=== PATIENT | male | born 1945 | race Caucasian/White ===

== ENCOUNTER 2020-03-25 10:34 | Outpatient (REF) | payer MEDICARE, MEDICAID, SELFPAY ==
[2020-03-25 12:01] LABS: MANUAL DIFF FLAG NO
[2020-03-25 12:04] LABS: Basophils Percent Auto 0.6 % (0-2); Eosinophils Absolute Auto 0.4 X10*3/uL (0.0-0.4); Eosinophils Percent Auto 5.5 % (0-4); Hematocrit 47.6 % (42-52); Hemoglobin 15.3 g/dl (14.0-18.0); Imm Gran Abs Auto 0.14 X10*3/uL (0.00-0.03); Lymphocytes Absolute Auto 1.1 X10*3/uL (1.2-4.9); Lymphocytes Percent Auto 15.4 % (20-40); Mean Corpuscular HGB Conc 32.1 g/dl (31.0-36.0); Mean Corpuscular Hemoglobin 31.9 pg (27.0-33.0); Mean Corpuscular Volume 99.2 fL (80-98); Mean Platelet Volume 10.9 fL (9.4-12.4); Monocytes Absolute Auto 0.7 X10*3/uL (0.1-1.2); Monocytes Percent Auto 9.3 % (2-11); Neutrophils Absolute Auto 4.7 X10*3/uL (2.0-8.3); Neutrophils Percent Auto 67.2 % (45-73); Platelet Count 222 X10*3/uL (160-400); Red Cell Distribution Width 14.1 % (11.0-16.0)
[2020-03-25 12:32] LABS: Anion Gap 15 (12-20); Blood Urea Nitrogen 23 mg/dL (9-16); Carbon Dioxide 25 mmol/L (22-29); Chloride 104 mmol/L (96-108); Estimated Glomerular Filt Rate 52; Potassium 4.2 mmol/l (3.3-5.1); Sodium 140 mmol/L (135-145)
[2020-03-25 13:18] LABS: Total Protein Urine Random 26 mg/dL (<12)
== END 2020-03-25 10:35 | disposition home or self-care (01) ==
LOC: HO.LAB 10:34
PROVIDERS: PCP Internal Medicine; Visit Provider Internal Medicine Hypertension Specialist
DX: N18.30 Chronic kidney disease, stage 3 unspecified (principal); N03.9 Chronic nephritic syndrome with unspecified morphologic changes; N03.8 Chronic nephritic syndrome with other morphologic changes
CPT/HCPCS: 36415; 80051; 82565; 84156; 84520; 85025

== ENCOUNTER 2020-07-02 10:36 | Outpatient (REF) | payer MEDICARE, MEDICAID, SELFPAY ==
[2020-07-02 11:42] LABS: MANUAL DIFF FLAG NO
[2020-07-02 12:00] LABS: Basophils Absolute Auto 0.1 X10*3/uL (0.0-0.2); Basophils Percent Auto 0.7 % (0-2); Eosinophils Absolute Auto 0.6 X10*3/uL (0.0-0.4); Eosinophils Percent Auto 8.3 % (0-4); Hematocrit 46.5 % (42-52); Hemoglobin 14.9 g/dl (14.0-18.0); Imm Gran Abs Auto 0.12 X10*3/uL (0.00-0.03); Imm Gran Pct Auto 1.6 % (0.0-0.4); Lymphocytes Absolute Auto 1.7 X10*3/uL (1.2-4.9); Lymphocytes Percent Auto 22.6 % (20-40); Mean Corpuscular Hemoglobin 31.4 pg (27.0-33.0); Mean Corpuscular Volume 98.1 fL (80-98); Mean Platelet Volume 11.3 fL (9.4-12.4); Monocytes Absolute Auto 0.9 X10*3/uL (0.1-1.2); Monocytes Percent Auto 11.4 % (2-11); Neutrophils Absolute Auto 4.2 X10*3/uL (2.0-8.3); Neutrophils Percent Auto 55.4 % (45-73); Platelet Count 165 X10*3/uL (160-400); Red Blood Count 4.74 X10*6/uL (4.60-5.80); Red Cell Distribution Width 13.4 % (11.0-16.0); White Blood Count 7.6 X10*3/uL (4.8-10.8)
[2020-07-02 12:36] LABS: Blood Urea Nitrogen 23 mg/dL (9-16); Calcium 8.5 mg/dL (8.4-10.2); Estimated Glomerular Filt Rate 53
[2020-07-02 12:37] LABS: Creatinine Urine 61.41 mg/dL; Total Protein Urine Random 43 mg/dL (<12)
[2020-07-02 13:21] LABS: Anion Gap 16 (12-20); Carbon Dioxide 23 mmol/L (22-29); Chloride 108 mmol/L (96-108); Potassium 4.3 mmol/L (3.3-5.1); Sodium 143 mmol/L (135-145)
== END 2020-07-02 10:37 | disposition home or self-care (01) ==
LOC: HO.LAB 10:36
PROVIDERS: PCP Internal Medicine; Visit Provider Internal Medicine Hypertension Specialist
DX: I12.9 Hypertensive chronic kidney disease with stage 1 through stage 4 chronic kidney disease, or unspecified chronic kidney disease (principal); N18.9 Chronic kidney disease, unspecified
CPT/HCPCS: 36415; 80051; 82310; 82565; 84156; 84520; 85025

== ENCOUNTER 2020-11-09 16:14 | Inpatient (IN) | payer MEDICARE, MEDICAID, SELFPAY ==
--- NOTE | ~2020-11-09 | CT_ITS ---
EXAMINATION: CT ABDOMEN AND PELVIS WITHOUT CONTRAST CLINICAL INFORMATION: Left flank pain. History of fall. COMPARISON: CT abdomen pelvis 10/03/2013 TECHNIQUE: Multidetector volumetric imaging was performed from the superior aspect of the liver through the pubic symphysis. Sagittal and coronal reformatted images were obtained on the technologist's workstation. This CT examination was performed using dose optimization techniques as appropriate, variously including the following: *Automated exposure control *Adjustment of mA and/or kV according to patient size (this includes techniques or standardized protocols for targeted exams where dose is matched to indication/reason for exam; i.e. extremities or head) *Use of iterative reconstruction technique DLP: 963 mGy-cm FINDINGS: LUNG BASES: The lung bases are clear. The heart size is normal. There are coronary artery calcifications present. LIVER, GALLBLADDER, AND BILIARY TREE: The liver is normal in size, shape, and attenuation. No focal hepatic lesion or biliary ductal dilatation is present. The gallbladder is unremarkable with no evidence of radiopaque gallstones, gallbladder wall thickening, or obvious pericholecystic inflammatory changes. PANCREAS: Unremarkable. SPLEEN: Unremarkable. ADRENAL GLANDS: Unremarkable. KIDNEYS AND URETERS: Both kidneys are normal size, shape and position. There is normal cortical thickness. There is mild perinephric stranding. Is a 2 mm radiopaque nonobstructive calculi mid pole right kidney on axial image 42/3. There are numerous vascular calcifications in the renal hilum. A 1 mm radiopaque calculi seen in the upper pole left kidney axial image 43/3. BLADDER: Unremarkable. GASTROINTESTINAL TRACT: There is scattered stool, diverticuli and gas seen throughout the colon without distention. The small bowel loops are normal caliber. Appendix is normal caliber. No mural thickening, inflammatory process or free fluid seen. There is no free aerated. ABDOMINAL WALL: There are small umbilical hernia containing fat. LYMPH NODES: Normal. VASCULAR: There is atherosclerotic calcification of abdominal aorta without aneurysmal dilatation. PELVIC VISCERA: The prostate gland is normal size. OSSEOUS STRUCTURES: There are degenerative disc changes L4-L5 L5-S1 disc levels with mild ventral spondylosis. CT/CT abdomen pelvis wo con IMPRESSION: Bilateral nonobstructive small radiopaque renal calculi. No hydronephrosis. Mild constipation. Diffuse colonic diverticulosis without diverticulitis. Small umbilical hernia containing fat.
--- NOTE | ~2020-11-09 | CT_ITS ---
EXAMINATION: CT HEAD WITHOUT CONTRAST CLINICAL INFORMATION: Altered sensorium. Fall. COMPARISON: CT head dated 11/06/2018. TECHNIQUE: Contiguous axial imaging was performed from the skull base to vertex without intravenous administration of contrast. This CT examination was performed using dose optimization techniques as appropriate, variously including the following: *Automated exposure control *Adjustment of mA and/or kV according to patient size (this includes techniques or standardized protocols for targeted exams where dose is matched to indication/reason for exam; i.e. extremities or head) *Use of iterative reconstruction technique DLP: 878 mGy-cm FINDINGS: There is no evidence of acute intracranial hemorrhage or territorial infarction. No abnormal mass effect or midline shift is seen. Left parieto-occipital encephalomalacia, unchanged. García to white matter differentiation is otherwise maintained. No extra-axial fluid collections are identified. The ventricles are normal in size. There is no abnormal attenuation within the brain parenchyma. The osseous structures and soft tissues are normal. The mastoid air cells and visualized portions of the paranasal sinuses are well aerated. CT/CT head/brain wo con IMPRESSION: No acute intracranial hemorrhage or mass effect.
--- NOTE | ~2020-11-09 | XR_ITS ---
EXAMINATION: XR CHEST CLINICAL INFORMATION: Shortness of breath. COMPARISON: Multiple priors, most recent chest radiograph done 10/15/2019. TECHNIQUE: Frontal view of the chest was obtained. FINDINGS: Mild diffuse interstitial prominence. Hypoinflation of the lungs with right basilar atelectasis versus infiltrates, new when compared to the prior examination. Probable trace right-sided pleural effusion. No pneumothorax. Stable cardiomediastinal silhouette. XR/XR chest 1V IMPRESSION: Interstitial prominence with right basilar atelectasis versus infiltrates and a probable trace right-sided pleural effusion, new when compared to the prior examination.
[2020-11-09 16:16] VITALS: BP 106/67; BP 126/61; PULSE 116; PULSE 118; RESP 20; O2SAT 78; O2SAT 97; BMI 42.3
--- NOTE | 2020-11-09 16:25 | ECG_ITS ---
Test Reason : LOW O2 SAT Blood Pressure : / mmHG Vent. Rate : 108 BPM Atrial Rate : 108 BPM P-R Int : 160 ms QRS Dur : 082 ms QT Int : 362 ms P-R-T Axes : 061 009 053 degrees QTc Int : 485 ms Sinus tachycardia Cannot rule out Anterior infarct , age undetermined Abnormal ECG When compared with ECG of 15-OCT-2019 01:28, Premature atrial complexes are no longer Present Referred By: Anthony Aguirre Electronically Signed By:Edison Graham
--- NOTE | 2020-11-09 16:25 | ED.AMS ---
HPI - Altered Mental Status General Chief Complaint: Altered Mental Status Stated Complaint: overdose, unresponsive Time Seen by Provider: 11/09/20 16:25 Source: family Mode of arrival: EMS Limitations: altered mental status History of Present Illness HPI narrative: Patient is 75 years old obese with history of sleep apnea and chronic back pain on heavy doses of OxyContin 50 mg 2 times a day along with Soma and Ativan supposed to use CPAP in the night but not using it as cannot find a mask but using oxygen 2.5 L as needed and while sleeping patient's noticed that patient was more lethargic today morning not waking up from the bed checked his oxygen was 90% and dropped to 88 and 84 and just prior to arrival dropped to 49% then she called his daughter and ambulance also patient was incontinent in eat all day anything pulse ox improved to 70s on 4 L EMS applied non-rebreather and oxygen saturation improved to 90s. EMS gave Narcan and patient responded became more awake according to family he does not overdose on Soma or OxyContin might have taken extra Ativan. In the ER and patient arrived was lethargic is easily arousable saturating 100 % on non-rebreather. last night patient fell between the bed and the table slump down without any significant injury Related Data Home Medications Medication Instructions Recorded Confirmed albuterol sulfate [Ventolin HFA] 2 puff INHALATION Q3-4H 11/09/20 11/09/20 allopurinol 2 tab PO DAILY 11/09/20 11/09/20 carisoprodol 2 tab PO TID 11/09/20 11/09/20 glipizide 1 tab PO BID 11/09/20 11/09/20 lorazepam 1 tab PO TID 11/09/20 11/09/20 losartan 1 tab PO DAILY 11/09/20 11/09/20 omeprazole 1 cap PO DAILY 11/09/20 11/09/20 oxycodone [OxyContin] 1 tab PO BID 11/09/20 11/09/20 oxycodone [OxyContin] 1 tab PO QPM 11/09/20 11/09/20 prednisone 1 tab PO ONCE 11/09/20 11/09/20 simvastatin 1 tab PO DAILY 11/09/20 11/09/20 Allergies Allergy/AdvReac Type Severity Reaction Status Date / Time codeine [CODEINE] Allergy Intermediate RASH Verified 11/09/20 17:07 morphine [MORPHINE] Allergy Mild NAUSEA Verified 11/09/20 17:07 ibuprofen [From MOTRIN] Allergy Unknown NAUSEA Verified 11/09/20 17:07 Review of Systems Review of Systems: Yes Unobtainable due to mental status [facility] Past Medical History Medical History Chronic back pain CVA (cerebral vascular accident) Lung nodule Oxygen dependent Sleep apnea Social History Social History Advance Directives: No Advance Directives Information Provided: Yes Physical Exam Vital Signs: Vital Signs: Last Vital Signs Temp 97.8 F 11/10/20 00:00 Pulse 105 H 11/10/20 00:00 Resp 20 11/10/20 00:00 BP 123/61 11/10/20 00:00 Pulse Ox 89 L 11/10/20 00:00 Body Mass Index 42.3 Const: General: lethargic and patient obtunded Nutritional Appearance: obese Orientation/consciousness: oriented to person, patient obtunded and lethargic Limitations: altered mental status HENMT: Head: Yes normocephalic Ears: hearing grossly impaired General nose exam: Normal external nose present Eyes: General: appearance normal, both eyes and all related structures Conjunctivae: conjunctivae normal Pupils: Equal, round and reactive pupils present Neck: Neck: Yes normal visual inspection Chest: Chest palpation & inspection: normal inspection of the chest Resp: Effort & Inspection: normal respiratory effort Auscultation: clear to auscultation bilaterally and diminished lung sounds Cardio: Palpation: normal PMI Rate: regular rate Rhythm: regular rhythm Heart sounds: S1 normal heart sound present and S2 normal heart sound present Peripheral pulses: Peripheral pulses 2+ throughout GI: Inspection: Yes normal to inspection Palpation (GI): Soft to palpation and nontender Auscultation: normal bowel sounds : General: Yes no CVA tenderness Back/Spine/Pelvis: Back: no CVA tenderness Thoracic/Lumbar Spine: thoracic and lumbar spine normal to inspection Skin: General skin exam: no rashes or lesions noted Neuro: General: oriented to person, no focal motor deficits, CN's II-XI intact bilaterally and patient obtunded Cranial nerves: Yes Equal, round and reactive pupils present Extrem: General: Yes normal to inspection, Yes full ROM and No edema MDM - Altered Mental Status MDM Narrative Medical decision making narrative: Patient likely with overdosed on OxyContin and Ativan as patient does not remember per family and is getting more forgetful. Also lab workup showed impaired renal functions creatinine increased to 2.18 from 1.3. Patient troponin level was elevated likely from demand ischemia secondary to hypoxia no acute EKG changes. Will admit patient for observation Medical Records Attestation: I reviewed the patient's medical records. Lab Data Attestation: I reviewed the patient's lab results. Result diagrams: 11/09/20 16:49 11/09/20 16:49 Labs: Lab Results 11/09/20 11/09/20 11/09/20 Range/Units 16:17 16:49 16:49 WBC 10.6 (4.8-10.8) X10*3/uL RBC 4.58 L (4.60-5.80) X10*6/uL Hgb 14.7 (14.0-18.0) g/dl Hct 46.4 (42-52) % MCV 101.3 H (80-98) fL MCH 32.1 (27.0-33.0) pg MCHC 31.7 (31.0-36.0) g/dl RDW 14.1 (11.0-16.0) % Plt Count 134 L (160-400) X10*3/uL MPV 11.3 (9.4-12.4) fL Immature Gran % (Auto) 1.0 H (0.0-0.4) % Neut % (Auto) 83.4 H (45-73) % Lymph % (Auto) 3.6 L (20-40) % [place] % (Auto) 11.6 H (2-11) % Eos % (Auto) 0.2 (0-4) % Baso % (Auto) 0.2 (0-2) % Lymph # (Auto) 0.4 L (1.2-4.9) X10*3/uL [place] # (Auto) 1.2 (0.1-1.2) X10*3/uL Eos # (Auto) 0.0 (0.0-0.4) X10*3/uL Baso # (Auto) 0.0 (0.0-0.2) X10*3/uL Abs Immat Gran (auto) 0.11 H (0.00-0.03) X10*3/uL Absolute Neuts (auto) 8.8 H (2.0-8.3) X10*3/uL Absolute Nucleated RBC 0.000 (0.0-0.012) X10*3/uL Nucleated RBC % (auto) 0.0 (0.0-0.2) /100WBC Smear Tech's Comments VERIFIED PT 11.2 (9.9-13.0) SEC INR 1.0 (0.9-1.1) APTT 19.9 L (24.1-38.0) SEC O2 Saturation % ABG pH at Pt Temp (7.35-7.45) ABG pH (Temp Correct) (7.35-7.45) ABG pCO2 at Pt Temp (32-45) mmHg ABG pCO2 (Temp Corrct (32-45) mmHg ABG pO2 at Pt Temp (83-108) mmHg ABG pO2 (Temp Correct (83-108) ABG HCO3 (22-26) mmol/L ABG Base Excess (Actual) mmol/L Sodium (135-145) mmol/L Potassium (3.3-5.1) mmol/L Chloride (96-108) mmol/L Carbon Dioxide (22-29) mmol/L Anion Gap (12-20) BUN (9-16) mg/dL Creatinine (0.5-1.4) mg/dL Estim Creat Clear Calc Estimated GFR POC Glucose 172 H (60-115) mg/dL Random Glucose (60-115) mg/dL Lactic Acid (0.5-2.0) mmol/L Calcium (8.4-10.2) mg/dL Total Bilirubin (0.0-1.0) mg/dL Direct Bilirubin (0.0-0.5) mg/dL AST (5-37) U/L ALT (0-40) U/L Alkaline Phosphatase (39-117) U/L Troponin I High Sens (<3.5-35.0) ng/L B-Natriuretic Peptide (<100) pg/mL Total Protein (6.5-8.0) g/dL Albumin (3.5-5.0) g/dL COVID-19 ([facility]) (Negative) COVID-19 Clin Com 11/09/20 11/09/20 11/09/20 Range/Units 16:49 16:49 16:49 WBC (4.8-10.8) X10*3/uL RBC (4.60-5.80) X10*6/uL Hgb (14.0-18.0) g/dl Hct (42-52) % MCV (80-98) fL MCH (27.0-33.0) pg MCHC (31.0-36.0) g/dl RDW (11.0-16.0) % Plt Count (160-400) X10*3/uL MPV (9.4-12.4) fL Immature Gran % (Auto) (0.0-0.4) % Neut % (Auto) (45-73) % Lymph % (Auto) (20-40) % [place] % (Auto) (2-11) % Eos % (Auto) (0-4) % Baso % (Auto) (0-2) % Lymph # (Auto) (1.2-4.9) X10*3/uL [place] # (Auto) (0.1-1.2) X10*3/uL Eos # (Auto) (0.0-0.4) X10*3/uL Baso # (Auto) (0.0-0.2) X10*3/uL Abs Immat Gran (auto) (0.00-0.03) X10*3/uL Absolute Neuts (auto) (2.0-8.3) X10*3/uL Absolute Nucleated RBC (0.0-0.012) X10*3/uL Nucleated RBC % (auto) (0.0-0.2) /100WBC Smear Tech's Comments PT (9.9-13.0) SEC INR (0.9-1.1) APTT (24.1-38.0) SEC O2 Saturation % ABG pH at Pt Temp (7.35-7.45) ABG pH (Temp Correct) (7.35-7.45) ABG pCO2 at Pt Temp (32-45) mmHg ABG pCO2 (Temp Corrct (32-45) mmHg ABG pO2 at Pt Temp (83-108) mmHg ABG pO2 (Temp Correct (83-108) ABG HCO3 (22-26) mmol/L ABG Base Excess (Actual) mmol/L Sodium 138 (135-145) mmol/L Potassium 4.5 (3.3-5.1) mmol/L Chloride 108 (96-108) mmol/L Carbon Dioxide 17 L (22-29) mmol/L Anion Gap 18 (12-20) BUN 40 H D (9-16) mg/dL Creatinine 2.18 H (0.5-1.4) mg/dL Estim Creat Clear Calc 41.5 Estimated GFR 30 POC Glucose (60-115) mg/dL Random Glucose 184 H (60-115) mg/dL Lactic Acid 0.8 (0.5-2.0) mmol/L Calcium 8.2 L (8.4-10.2) mg/dL Total Bilirubin 2.1 H (0.0-1.0) mg/dL Direct Bilirubin 1.6 H (0.0-0.5) mg/dL AST 30 (5-37) U/L ALT 36 (0-40) U/L Alkaline Phosphatase 159 H (39-117) U/L Troponin I High Sens 60.4 H* (<3.5-35.0) ng/L B-Natriuretic Peptide (<100) pg/mL Total Protein 6.3 L (6.5-8.0) g/dL Albumin 3.9 (3.5-5.0) g/dL COVID-19 ([facility]) (Negative) COVID-19 Clin Com 11/09/20 11/09/20 11/09/20 Range/Units 16:49 16:49 16:54 WBC (4.8-10.8) X10*3/uL RBC (4.60-5.80) X10*6/uL Hgb (14.0-18.0) g/dl Hct (42-52) % MCV (80-98) fL MCH (27.0-33.0) pg MCHC (31.0-36.0) g/dl RDW (11.0-16.0) % Plt Count (160-400) X10*3/uL MPV (9.4-12.4) fL Immature Gran % (Auto) (0.0-0.4) % Neut % (Auto) (45-73) % Lymph % (Auto) (20-40) % [place] % (Auto) (2-11) % Eos % (Auto) (0-4) % Baso % (Auto) (0-2) % Lymph # (Auto) (1.2-4.9) X10*3/uL [place] # (Auto) (0.1-1.2) X10*3/uL Eos # (Auto) (0.0-0.4) X10*3/uL Baso # (Auto) (0.0-0.2) X10*3/uL Abs Immat Gran (auto) (0.00-0.03) X10*3/uL Absolute Neuts (auto) (2.0-8.3) X10*3/uL Absolute Nucleated RBC (0.0-0.012) X10*3/uL Nucleated RBC % (auto) (0.0-0.2) /100WBC Smear Tech's Comments PT (9.9-13.0) SEC INR (0.9-1.1) APTT (24.1-38.0) SEC O2 Saturation 98.0 % ABG pH at Pt Temp 7.30 L (7.35-7.45) ABG pH (Temp Correct) 7.31 L (7.35-7.45) ABG pCO2 at Pt Temp 32 (32-45) mmHg ABG pCO2 (Temp Corrct 32 (32-45) mmHg ABG pO2 at Pt Temp 112 H (83-108) mmHg ABG pO2 (Temp Correct 109 H (83-108) ABG HCO3 16 L (22-26) mmol/L ABG Base Excess (Actual) -8.4 mmol/L Sodium (135-145) mmol/L Potassium (3.3-5.1) mmol/L Chloride (96-108) mmol/L Carbon Dioxide (22-29) mmol/L Anion Gap (12-20) BUN (9-16) mg/dL Creatinine (0.5-1.4) mg/dL Estim Creat Clear Calc Estimated GFR POC Glucose (60-115) mg/dL Random Glucose (60-115) mg/dL Lactic Acid (0.5-2.0) mmol/L Calcium (8.4-10.2) mg/dL Total Bilirubin (0.0-1.0) mg/dL Direct Bilirubin (0.0-0.5) mg/dL AST (5-37) U/L ALT (0-40) U/L Alkaline Phosphatase (39-117) U/L Troponin I High Sens (<3.5-35.0) ng/L B-Natriuretic Peptide 59 (<100) pg/mL Total Protein (6.5-8.0) g/dL Albumin (3.5-5.0) g/dL COVID-19 ([facility]) Negative (Negative) COVID-19 Clin Com See Note 11/09/20 Range/Units 20:16 WBC (4.8-10.8) X10*3/uL RBC (4.60-5.80) X10*6/uL Hgb (14.0-18.0) g/dl Hct (42-52) % MCV (80-98) fL MCH (27.0-33.0) pg MCHC (31.0-36.0) g/dl RDW (11.0-16.0) % Plt Count (160-400) X10*3/uL MPV (9.4-12.4) fL Immature Gran % (Auto) (0.0-0.4) % Neut % (Auto) (45-73) % Lymph % (Auto) (20-40) % [place] % (Auto) (2-11) % Eos % (Auto) (0-4) % Baso % (Auto) (0-2) % Lymph # (Auto) (1.2-4.9) X10*3/uL [place] # (Auto) (0.1-1.2) X10*3/uL Eos # (Auto) (0.0-0.4) X10*3/uL Baso # (Auto) (0.0-0.2) X10*3/uL Abs Immat Gran (auto) (0.00-0.03) X10*3/uL Absolute Neuts (auto) (2.0-8.3) X10*3/uL Absolute Nucleated RBC (0.0-0.012) X10*3/uL Nucleated RBC % (auto) (0.0-0.2) /100WBC Smear Tech's Comments PT (9.9-13.0) SEC INR (0.9-1.1) APTT (24.1-38.0) SEC O2 Saturation % ABG pH at Pt Temp (7.35-7.45) ABG pH (Temp Correct) (7.35-7.45) ABG pCO2 at Pt Temp (32-45) mmHg ABG pCO2 (Temp Corrct (32-45) mmHg ABG pO2 at Pt Temp (83-108) mmHg ABG pO2 (Temp Correct (83-108) ABG HCO3 (22-26) mmol/L ABG Base Excess (Actual) mmol/L Sodium (135-145) mmol/L Potassium (3.3-5.1) mmol/L Chloride (96-108) mmol/L Carbon Dioxide (22-29) mmol/L Anion Gap (12-20) BUN (9-16) mg/dL Creatinine (0.5-1.4) mg/dL Estim Creat Clear Calc Estimated GFR POC Glucose (60-115) mg/dL Random Glucose (60-115) mg/dL Lactic Acid (0.5-2.0) mmol/L Calcium (8.4-10.2) mg/dL Total Bilirubin (0.0-1.0) mg/dL Direct Bilirubin (0.0-0.5) mg/dL AST (5-37) U/L ALT (0-40) U/L Alkaline Phosphatase (39-117) U/L Troponin I High Sens 236.0 H* D (<3.5-35.0) ng/L B-Natriuretic Peptide (<100) pg/mL Total Protein (6.5-8.0) g/dL Albumin (3.5-5.0) g/dL COVID-19 ([facility]) (Negative) COVID-19 Clin Com Critical Care Time Critical Care Time Critical Care Time: Yes Total Critical Care Time: 35 Attestation: I spent 35 minutes of critical care, with interventions, assessments, speaking to patient, and family. Discharge Plan Discharge Clinical Impression: Elevated troponin level not due myocardial infarction Altered mental status Qualifiers: Altered mental status type: stupor Qualified Code(s): R40.1 - Stupor Acute renal failure Qualifiers: Acute renal failure type: unspecified Qualified Code(s): N17.9 - Acute kidney failure, unspecified Patient Disposition: Admitted As Inpatient Discharge Date/Time: 11/10/20 00:17
[2020-11-09 16:30] VITALS: PULSE 116; RESP 18; TEMP 36.4
[2020-11-09 17:02] LABS: ABG Base Excess -8.4 mmol/L; ABG HCO3 16 mmol/L (22-26); ABG pCO2 32 mmHg (32-45); ABG pCO2 TC 32 mmHg (32-45); ABG pH TC 7.31 (7.35-7.45); ABG pO2 112 mmHg (83-108); ABG pO2 TC 109 (83-108)
[2020-11-09 17:03] LABS: ABG Refer to POC result
[2020-11-09] MEDS: 0.9 % Sodium Chloride 1,000 ML 999 ML IVCONT (17:08)
[2020-11-09 17:12] LABS: Basophils Percent Auto 0.2 % (0-2); Eosinophils Percent Auto 0.2 % (0-4); Hemoglobin 14.7 g/dl (14.0-18.0); MANUAL DIFF FLAG SCAN; Neutrophils Percent Auto 83.4 % (45-73); PLT CLUMP 1; SCAN SMEAR FLAG 1
[2020-11-09 17:14] LABS: Hematocrit 46.4 % (42-52); Imm Gran Abs Auto 0.11 X10*3/uL (0.00-0.03); Lymphocytes Absolute Auto 0.4 X10*3/uL (1.2-4.9); Lymphocytes Percent Auto 3.6 % (20-40); Mean Corpuscular HGB Conc 31.7 g/dl (31.0-36.0); Mean Corpuscular Hemoglobin 32.1 pg (27.0-33.0); Mean Corpuscular Volume 101.3 fL (80-98); Monocytes Absolute Auto 1.2 X10*3/uL (0.1-1.2); Monocytes Percent Auto 11.6 % (2-11); Neutrophils Absolute Auto 8.8 X10*3/uL (2.0-8.3); Red Blood Count 4.58 X10*6/uL (4.60-5.80); Red Cell Distribution Width 14.1 % (11.0-16.0); White Blood Count 10.6 X10*3/uL (4.8-10.8)
--- NOTE | 2020-11-09 17:18 | PC.NURSE ---
Difficulty in obtaining IV access. EJ placed to left neck by physician. VSS at this time. PT sent to CT.
[2020-11-09 17:20] LABS: Lactic Acid 0.8 mmol/L (0.5-2.0)
[2020-11-09 17:23] VITALS: PULSE 111; O2SAT 94
[2020-11-09] MEDS: Albuterol/Iprat 2.5/0.5MG 3 ML AMPUL.NEB INHALE (17:23)
[2020-11-09] MEDS: Albuterol Sulfate (0.083%) 2.5 MG/3 ML VIAL.NEB INHALE (17:23)
[2020-11-09 17:27] LABS: Alanine Aminotransferase 36 U/L (0-40); Albumin Level 3.9 g/dL (3.5-5.0); Alkaline Phosphatase 159 U/L (39-117); Anion Gap 18 (12-20); Aspartate Amino Transferase 30 U/L (5-37); Bilirubin Direct 1.6 mg/dL (0.0-0.5); Bilirubin Total 2.1 mg/dL (0.0-1.0); Blood Urea Nitrogen 40 mg/dL (9-16); Calcium 8.2 mg/dL (8.4-10.2); Carbon Dioxide 17 mmol/L (22-29); Chloride 108 mmol/L (96-108); Creatinine Clr Calc Pharmacy 41.5; Estimated Glomerular Filt Rate 30; Glucose Random 184 mg/dL (60-115); Potassium 4.5 mmol/L (3.3-5.1); Sodium 138 mmol/L (135-145); Total Protein 6.3 g/dL (6.5-8.0)
[2020-11-09 17:30] VITALS: BP 101/63; PULSE 110; RESP 16; O2SAT 96
[2020-11-09 17:30] LABS: Troponin-I High Sensitivity 60.4 ng/L (<3.5-35.0)
[2020-11-09 17:33] LABS: Prothrombin Time 11.2 SEC (9.9-13.0)
[2020-11-09 17:36] LABS: COVID-19 Test Negative (Negative)
[2020-11-09 17:40] LABS: Mean Platelet Volume 11.3 fL (9.4-12.4); Platelet Count 134 X10*3/uL (160-400)
[2020-11-09 17:40] LABS: Glucose, Whole Blood 172 mg/dL (60-115)
[2020-11-09 17:41] LABS: SLIDE REVIEW VERIFIED
[2020-11-09 17:42] LABS: Partial Thromboplastin Time 19.9 SEC (24.1-38.0)
[2020-11-09 17:55] LABS: B Type Natriuretic Peptide 59 pg/mL (<100)
[2020-11-09 18:32] VITALS: BP 101/63; PULSE 107; RESP 16; O2SAT 91
--- NOTE | 2020-11-09 21:22 | ECG_ITS ---
Test Reason : REPEAT Blood Pressure : / mmHG Vent. Rate : 108 BPM Atrial Rate : 108 BPM P-R Int : 162 ms QRS Dur : 084 ms QT Int : 346 ms P-R-T Axes : 123 171 121 degrees QTc Int : 463 ms Suspect limb lead reversal, interpretation assumes no reversal Unusual P axis, possible ectopic atrial tachycardia Left posterior fascicular block Cannot rule out Anterior infarct (cited on or before 09-NOV-2020) Abnormal ECG When compared with ECG of 09-NOV-2020 18:31, Ectopic atrial rhythm has replaced Sinus rhythm Left posterior fascicular block is now Present Referred By: Anthony Aguirre Electronically Signed By:Edison Graham
[2020-11-09 21:50] VITALS: BP 117/59; PULSE 109; RESP 15; O2SAT 91
[2020-11-09] MEDS: Piperacillin Sodium/Tazobactam 3.375 GM in 0.9 % Sodium Chloride 50 ML IV (22:21)
--- NOTE | 2020-11-09 23:00 | PM.IMHP ---
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 and chronic back pain on opioids as well as Ativan per family who presents to the hospital after his found him on the floor. It appears that patient had fallen out of bed and unclear if she lost consciousness but when his found him he was very lethargic and hard to arouse. His daughter arrived to the home shortly after and found him to be satting 69%. With a blood pressure of 90 3.5. Patient's daughter placed him on 2 L of oxygen with improvement of his oxygen to 93% which is around his baseline, but patient remained lethargic and had very minimal p.o. intake throughout the day. Patient's daughter reports that she left her parent's house at noontime, called her mother and found around 4:00 a.m. the patient was turning blue. His checked his oxygen on found to be 49% on 2 L of oxygen. Therefore decided to call EMS to bring him to the hospital. Patient is now more alert, he is a little more responsive, he is oriented to self and place. He does not remember what happened, reports that he might have lost consciousness. His daughter and his report that he may have taken extra dose of Ativan and pain medication although they are not sure. Patient himself is also not sure. He denies any weakness. He has chronic weakness of the right lower extremity with no changes. He denies any numbness or tingling, no change in vision or headache, no chest pain, no shortness of breath, no abdominal pain nausea or vomiting, he had 1 loss of bowel control in bladder control in the morning while at home. With no recurrence. Patient hemodynamically stable with a temp of 97.8?, heart rate of 116, respiratory rate of 18, blood pressure of 106/67 satting 97% on non-rebreather, currently on 3 L satting 90% Labs on arrival significant for WBC count of 10.6, hemoglobin of 14.7, pH of 7.3, pCO2 of 32, PO2 of 112, BUN of 40, creatinine of 2.8 with a baseline around 1.32, total bili of 2.1, direct bili of 1.6, alk-phos of 159, troponin of 60.4 which increased to 236. UA positive for leukocyte Estrace, and WBC will be admitted for further management Review of Systems Review of Systems: Yes all other systems are reviewed and are negative [facility] Medical History Chronic back pain CVA (cerebral vascular accident) Lung nodule Oxygen dependent Sleep apnea Social History Household Members: Spouse Housing: House Do you presently have visiting nurse or other home services: No Patient Tobacco Use Status: Former Tobacco user Use of substances other than those prescribed or required for medical reasons: No Have you been hit, kicked, punched, or otherwise hurt by someone within the past year? If so, by whom?: No Do you feel safe in your current relationship?: Yes Is there a partner from a previous relationship who is making you feel unsafe now?: No Are you made to feel afraid or neglected: No Advance Directives: No Advance Directives Information Provided: Yes Do you have thoughts of harming others: None Do you have a plan to hurt others: No Plan Recently lost weight without trying: No Eating poorly because of decreased appetite: No Nutrition Risks: No Nutritional Risk Poor oral hygiene: No Meds Allergies Allergy/AdvReac Type Severity Reaction Status Date / Time codeine [CODEINE] Allergy Intermediate RASH Verified 11/09/20 17:07 morphine [MORPHINE] Allergy Mild NAUSEA Verified 11/09/20 17:07 ibuprofen [From MOTRIN] Allergy Unknown NAUSEA Verified 11/09/20 17:07 Home Medications Medication Instructions Recorded Confirmed Last Taken Type albuterol sulfate [Ventolin HFA] 2 puff INHALATION Q3-4H 11/09/20 11/09/20 Unknown History allopurinol 2 tab PO DAILY 11/09/20 11/09/20 Unknown History carisoprodol 2 tab PO TID 11/09/20 11/09/20 Unknown History glipizide 1 tab PO BID 11/09/20 11/09/20 Unknown History lorazepam 1 tab PO TID 11/09/20 11/09/20 Unknown History losartan 1 tab PO DAILY 11/09/20 11/09/20 Unknown History omeprazole 1 cap PO DAILY 11/09/20 11/09/20 Unknown History oxycodone [OxyContin] 1 tab PO BID 11/09/20 11/09/20 Unknown History oxycodone [OxyContin] 1 tab PO QPM 11/09/20 11/09/20 Unknown History prednisone 1 tab PO ONCE 11/09/20 11/09/20 Unknown History simvastatin 1 tab PO DAILY 11/09/20 11/09/20 Unknown History Physical Exam Vital Signs and Narrative: Vital Signs: Last Vital Signs Temp 97.6 F 11/09/20 16:30 Pulse 109 H 11/09/20 21:50 Resp 15 11/09/20 21:50 BP 117/59 L 11/09/20 21:50 Pulse Ox 91 L 11/09/20 21:50 Body Mass Index 42.3 Const: Other: Lethargic but arousable General: cooperative and no acute distress Eyes: General: appearance normal, both eyes and all related structures Resp: Effort & Inspection: normal respiratory effort and able to speak in complete sentences Auscultation: clear to auscultation bilaterally Cardio: Rate: regular rate Rhythm: regular rhythm GI: Palpation (GI): Soft to palpation Auscultation: normal bowel sounds Skin: General skin exam: no rashes or lesions noted Neuro: Other: No significant neurological deficits, chronic weakness of right lower extremity Cognition (Neuro): normal cognition Extrem: General: Yes normal to inspection and Yes no pedal edema Results Labs CBC and Chem 7: 11/10/20 04:46 11/10/20 04:46 Labs: Laboratory Results - last 24 hr 11/09/20 11/09/20 11/09/20 16:17 16:49 16:49 MCV 101.3 H MCH 32.1 MCHC 31.7 RDW 14.1 Plt Count 134 L MPV 11.3 Immature Gran % (Auto) 1.0 H Neut % (Auto) 83.4 H Lymph % (Auto) 3.6 L [place] % (Auto) 11.6 H Eos % (Auto) 0.2 Baso % (Auto) 0.2 Lymph # (Auto) 0.4 L [place] # (Auto) 1.2 Eos # (Auto) 0.0 Baso # (Auto) 0.0 Abs Immat Gran (auto) 0.11 H Absolute Neuts (auto) 8.8 H Absolute Nucleated RBC 0.000 Nucleated RBC % (auto) 0.0 Smear Tech's Comments VERIFIED PT 11.2 INR 1.0 APTT 19.9 L O2 Saturation ABG pH at Pt Temp ABG pH (Temp Correct) ABG pCO2 at Pt Temp ABG pCO2 (Temp Corrct ABG pO2 at Pt Temp ABG pO2 (Temp Correct ABG HCO3 ABG Base Excess (Actual) Anion Gap Estim Creat Clear Calc Estimated GFR POC Glucose 172 H Random Glucose Lactic Acid Calcium Total Bilirubin Direct Bilirubin AST ALT Alkaline Phosphatase Troponin I High Sens B-Natriuretic Peptide Total Protein Albumin COVID-19 ([facility]) COVID-19 [place] 11/09/20 11/09/20 11/09/20 16:49 16:49 16:49 MCV MCH MCHC RDW Plt Count MPV Immature Gran % (Auto) Neut % (Auto) Lymph % (Auto) [place] % (Auto) Eos % (Auto) Baso % (Auto) Lymph # (Auto) [place] # (Auto) Eos # (Auto) Baso # (Auto) Abs Immat Gran (auto) Absolute Neuts (auto) Absolute Nucleated RBC Nucleated RBC % (auto) Smear Tech's Comments PT INR APTT O2 Saturation ABG pH at Pt Temp ABG pH (Temp Correct) ABG pCO2 at Pt Temp ABG pCO2 (Temp Corrct ABG pO2 at Pt Temp ABG pO2 (Temp Correct ABG HCO3 ABG Base Excess (Actual) Anion Gap 18 Estim Creat Clear Calc 41.5 Estimated GFR 30 POC Glucose Random Glucose 184 H Lactic Acid 0.8 Calcium 8.2 L Total Bilirubin 2.1 H Direct Bilirubin 1.6 H AST 30 ALT 36 Alkaline Phosphatase 159 H Troponin I High Sens 60.4 H* B-Natriuretic Peptide Total Protein 6.3 L Albumin 3.9 COVID-19 ([facility]) COVID-19 [place] 11/09/20 11/09/20 11/09/20 16:49 16:49 16:54 MCV MCH MCHC RDW Plt Count MPV Immature Gran % (Auto) Neut % (Auto) Lymph % (Auto) [place] % (Auto) Eos % (Auto) Baso % (Auto) Lymph # (Auto) [place] # (Auto) Eos # (Auto) Baso # (Auto) Abs Immat Gran (auto) Absolute Neuts (auto) Absolute Nucleated RBC Nucleated RBC % (auto) Smear Tech's Comments PT INR APTT O2 Saturation 98.0 ABG pH at Pt Temp 7.30 L ABG pH (Temp Correct) 7.31 L ABG pCO2 at Pt Temp 32 ABG pCO2 (Temp Corrct 32 ABG pO2 at Pt Temp 112 H ABG pO2 (Temp Correct 109 H ABG HCO3 16 L ABG Base Excess (Actual) -8.4 Anion Gap Estim Creat Clear Calc Estimated GFR POC Glucose Random Glucose Lactic Acid Calcium Total Bilirubin Direct Bilirubin AST ALT Alkaline Phosphatase Troponin I High Sens B-Natriuretic Peptide 59 Total Protein Albumin COVID-19 ([facility]) Negative COVID-19 Clin Com See Note 11/09/20 20:16 MCV MCH MCHC RDW Plt Count MPV Immature Gran % (Auto) Neut % (Auto) Lymph % (Auto) [place] % (Auto) Eos % (Auto) Baso % (Auto) Lymph # (Auto) [place] # (Auto) Eos # (Auto) Baso # (Auto) Abs Immat Gran (auto) Absolute Neuts (auto) Absolute Nucleated RBC Nucleated RBC % (auto) Smear Tech's Comments PT INR APTT O2 Saturation ABG pH at Pt Temp ABG pH (Temp Correct) ABG pCO2 at Pt Temp ABG pCO2 (Temp Corrct ABG pO2 at Pt Temp ABG pO2 (Temp Correct ABG HCO3 ABG Base Excess (Actual) Anion Gap Estim Creat Clear Calc Estimated GFR POC Glucose Random Glucose Lactic Acid Calcium Total Bilirubin Direct Bilirubin AST ALT Alkaline Phosphatase Troponin I High Sens 236.0 H* D B-Natriuretic Peptide Total Protein Albumin COVID-19 ([facility]) COVID-19 Clin Com Imaging Radiologist's Impressions: Impressions Chest X-Ray 11/09/20 16:25 IMPRESSION: Interstitial prominence with right basilar atelectasis versus infiltrates and a probable trace right-sided pleural effusion, new when compared to the prior examination. Head CT 11/09/20 16:27 IMPRESSION: No acute intracranial hemorrhage or mass effect. Assessment and Plan (1) Encephalopathy: Status: Acute (2) UTI (urinary tract infection): Status: Acute (3) Acute renal failure: Qualifiers: Acute renal failure type: unspecified Qualified Code(s): N17.9 - Acute kidney failure, unspecified Status: Acute 75-year-old male with past medical history of chronic back pain, diabetes who presents to the hospital with encephalopathy # encephalopathy - possibly secondary to polypharmacy as patient is on sedatives including his narcotic medications for pain as well as Ativan worsened by acute infection - patient takes oxycodone as well as Ativan for his pain and anxiety, he is also on muscle relaxant which is also sedative. unclear if he took more - he has acute UTI - mentation is improving but time I saw patient - unlikely to be acute stroke - no evidence of hypercapnia on VBG Plan: - treatment of acute infection - will hold Ativan as well as his oxycodone for the next 24 hours - discussed extensively with family the need to visit PCP and discuss pain medications and discontinuation of his Ativan as patient has underlying sleep apnea - monitor mentation - if patient does not return to his baseline which is A&O x4 consider MRI # UTI - patient denies any urinary symptoms - has positive UA - will treat him with IV ceftriaxone - follow cultures # [place] - most likely secondary to poor oral intake - started on IV fluids - follow BMP # diabetes - hold glipizide - start low-dose sliding scale insulin - diabetic diet # hypertension - stable - continue losartan DVT prophylaxis: heparin subq Quality Stroke Does the patient have a stroke diagnosis?: No VTE Prior VTE?: No VTE Risk Level:: Medical - moderate - high VTE Device Contraindication: Treatment Not Indicated VTE Drug Contraindication: N/A - Med Ordered
[2020-11-10] VITALS (12 sets, daily range): BP systolic 100–134; BP diastolic 54–69; PULSE 86–105; RESP 18–20; TEMP 36.2–36.8; O2SAT 89–97; BMI 42.3
[2020-11-10] MEDS: Lactated Ringers 1,000 ML 100 ML IVCONT ×3 (01:17→21:01)
[2020-11-10] MEDS: Acetaminophen 325 MG TABLET 650 MG PO ×4 (01:17→21:03)
[2020-11-10 01:55] LABS: Troponin-I High Sensitivity 316.1 ng/L (<3.5-35.0)
[2020-11-10 02:58] LABS: Glucose Urine UA NEG (NEG); Leukocyte Esterase Urine 2+ (NEG); Nitrite Urine NEG (NEG); PH 5.5 (5.0-8.0); Specific Gravity - Urine 1.025 (1.005-1.025); UACC Culture Trigger YES; Urine Blood 2+ (NEG); Urine Ketones NEG (NEG); Urine Protein 1+ MG/DL (NEG-TRACE)
[2020-11-10 03:00] LABS: Appearance Urine HAZY; Color Urine AMBER
[2020-11-10 03:23] LABS: Amorphous Sediment Urine TRACE /LPF; Bacteria Urine TRACE /LPF; Mucus Urine TRACE /LPF; Squamous Epithelial Cell Urine TRACE /LPF; WBC Clumps Urine NOTED; WBC Urine 50-75 /HPF (0-4)
[2020-11-10 05:24] LABS: Basophils Percent Auto 0.1 % (0-2); Hemoglobin 13.8 g/dl (14.0-18.0); MANUAL DIFF FLAG SCAN; PLT CLUMP 1; Red Cell Distribution Width 14.2 % (11.0-16.0); SCAN SMEAR FLAG 1
[2020-11-10 05:26] LABS: Eosinophils Absolute Auto 0.1 X10*3/uL (0.0-0.4); Hematocrit 44.4 % (42-52); Imm Gran Abs Auto 0.08 X10*3/uL (0.00-0.03); Imm Gran Pct Auto 0.9 % (0.0-0.4); Lymphocytes Absolute Auto 0.9 X10*3/uL (1.2-4.9); Lymphocytes Percent Auto 10.2 % (20-40); Mean Corpuscular HGB Conc 31.1 g/dl (31.0-36.0); Mean Corpuscular Hemoglobin 31.9 pg (27.0-33.0); Mean Corpuscular Volume 102.5 fL (80-98); Mean Platelet Volume 11.1 fL (9.4-12.4); Monocytes Absolute Auto 1.1 X10*3/uL (0.1-1.2); Monocytes Percent Auto 12.5 % (2-11); Neutrophils Absolute Auto 6.7 X10*3/uL (2.0-8.3); Neutrophils Percent Auto 75.3 % (45-73); Red Blood Count 4.33 X10*6/uL (4.60-5.80); White Blood Count 8.8 X10*3/uL (4.8-10.8)
[2020-11-10 05:43] LABS: Platelet Count 137 X10*3/uL (160-400)
[2020-11-10 05:44] LABS: Anion Gap 14 (12-20); Blood Urea Nitrogen 39 mg/dL (9-16); Carbon Dioxide 23 mmol/L (22-29); Chloride 109 mmol/L (96-108); Creatinine Clr Calc Pharmacy 43.5; Estimated Glomerular Filt Rate 31; Glucose Random 118 mg/dL (60-115); Potassium 4.7 mmol/L (3.3-5.1); Sodium 141 mmol/L (135-145)
[2020-11-10 05:54] LABS: SLIDE REVIEW VERIFIED
[2020-11-10] MEDS: Omeprazole 20 MG CAPSULE.DR PO (05:58)
[2020-11-10 07:23] LABS: Glucose, Whole Blood 126 mg/dL (60-115)
[2020-11-10 08:09] LABS: Troponin-I High Sensitivity 223.2 ng/L (<3.5-35.0)
[2020-11-10] MEDS: Albuterol Sulfate 90 MCG 8 GM INHALER 2 PUFF INHALE ×4 (08:14→20:22)
[2020-11-10] MEDS: carisoprodoL 350 MG TABLET 700 MG PO ×3 (08:23→21:03)
[2020-11-10] MEDS: Atorvastatin Calcium 10 MG TABLET PO (08:55)
[2020-11-10] MEDS: Losartan Potassium 50 MG TABLET PO (08:57)
--- NOTE | 2020-11-10 09:11 | P.PNIM_ITS ---
Subjective Subjective Date of Service: 11/10/20 Interval History: Toxic metabolic encephalopathy secondary to medications ativan , soma sleep apnea Review of Systems Mental status seems to be improved significantly, shortness of breath is also improving. Denies any chest pain or abdominal pain or fever or chills or cough or phlegm. Physical Exam Vital Signs: Vital Signs: Last Vital Signs Temp 97.4 F 11/10/20 07:52 Pulse 102 H 11/10/20 08:57 Resp 20 11/10/20 07:52 BP 134/66 11/10/20 08:57 Pulse Ox 94 11/10/20 07:52 Body Mass Index 42.3 Physical exam: Heent: eyes anicteric, no discharge Cvs: [id number], [id number] , no murmur res:air entry seems fair ,luna or wheezing abd: no rebound or guarding ,nt, bs present. ext pulses present , no cyanosis neuro: axo3 , nonfocal Objective Data Current Medications Generic Name Dose Route Start Last Admin Trade Name Freq PRN Reason Stop Dose Admin Acetaminophen 650 mg 11/09/20 23:51 11/10/20 08:24 Acetaminophen 325 Mg Tablet PO 650 mg Q6H PRN Administration Pain, Mild (Pain Scale 1-3) Albuterol Sulfate 2 puff 11/09/20 23:51 11/10/20 08:14 Albuterol Sulfate 90 Mcg 8 Gm Inhaler INHALE 2 puff Q3H AISHWARYA Administration Atorvastatin Calcium 10 mg 11/10/20 09:00 11/10/20 08:55 Atorvastatin Calcium 10 Mg Tablet PO 10 mg DAILY AISHWARYA Administration Carisoprodol 700 mg 11/10/20 09:00 11/10/20 08:23 Carisoprodol 350 Mg Tablet PO 700 mg TID AISHWARYA Administration Docusate Sodium 100 mg 11/09/20 23:51 Docusate Sodium 100 Mg Capsule PO DAILY PRN Constipation Heparin Sodium (Porcine) 5,000 unit 11/09/20 23:51 11/10/20 00:57 Heparin Sodium,Porcine 5,000 Unit/Ml Vial SUBCUT Not Given Q12H AISHWARYA Lactated Ringer's 1,000 mls @ 100 mls/hr 11/09/20 23:51 11/10/20 01:17 Lr IVCONT 100 mls/hr .Q10H AISHWARYA Administration Ceftriaxone Sodium 1 gm/ 50 mls @ 100 mls/hr 11/10/20 07:00 Sodium Chloride IV Q24H AISHWARYA Insulin Human Lispro 0 unit 11/10/20 07:30 11/10/20 08:33 Insulin Lispro 100 Unit/Ml 3 Ml Vial SUBCUT Not Given QIDACHS [facility] Protocol Losartan Potassium 50 mg 11/10/20 09:00 11/10/20 08:57 Losartan Potassium 50 Mg Tablet PO 50 mg DAILY [facility] Administration Protocol Omeprazole 20 mg 11/10/20 06:30 11/10/20 05:58 Omeprazole 20 Mg Capsule. PO 20 mg DAILY@0630 [facility] Administration Ondansetron HCl 4 mg 11/09/20 23:51 Ondansetron Hcl 4 Mg/2 Ml Vial IVPUSH Q8H PRN Nausea and Vomiting Prednisone 5 mg 11/09/20 23:51 Prednisone 5 Mg Tablet PO ONCE [facility] Sodium Chloride 3 ml 11/10/20 00:00 11/10/20 01:53 0.9 % Sodium Chloride Flush 3 Ml Syringe IVFLUSH Not Given QSHIFT [facility] Labs CBC & Chem 7: 11/10/20 04:46 11/10/20 04:46 Labs: Laboratory Results - last 24 hr 11/09/20 11/09/20 11/09/20 16:17 16:49 16:49 WBC 10.6 RBC 4.58 L Hgb 14.7 Hct 46.4 MCV 101.3 H MCH 32.1 MCHC 31.7 RDW 14.1 Plt Count 134 L MPV 11.3 Immature Gran % (Auto) 1.0 H Neut % (Auto) 83.4 H Lymph % (Auto) 3.6 L [place] % (Auto) 11.6 H Eos % (Auto) 0.2 Baso % (Auto) 0.2 Lymph # (Auto) 0.4 L [place] # (Auto) 1.2 Eos # (Auto) 0.0 Baso # (Auto) 0.0 Abs Immat Gran (auto) 0.11 H Absolute Neuts (auto) 8.8 H Absolute Nucleated RBC 0.000 Nucleated RBC % (auto) 0.0 Smear Tech's Comments VERIFIED PT 11.2 INR 1.0 APTT 19.9 L O2 Saturation ABG pH at Pt Temp ABG pH (Temp Correct) ABG pCO2 at Pt Temp ABG pCO2 (Temp Corrct ABG pO2 at Pt Temp ABG pO2 (Temp Correct ABG HCO3 ABG Base Excess (Actual) Sodium Potassium Chloride Carbon Dioxide Anion Gap BUN Creatinine Estim Creat Clear Calc Estimated GFR POC Glucose 172 H Random Glucose Lactic Acid Calcium Total Bilirubin Direct Bilirubin AST ALT Alkaline Phosphatase Troponin I High Sens B-Natriuretic Peptide Total Protein Albumin Urine Color Urine Appearance Urine pH Ur Specific [place] Urine Protein Urine Glucose (UA) Urine Ketones Urine Blood Urine Nitrite Ur Leukocyte Esterase Urine RBC Urine WBC Urine WBC Clumps Ur Squamous Epith Cells Amorphous Sediment Urine Bacteria Urine Mucus COVID-19 ([facility]) COVID-19 Clin Com 11/09/20 11/09/20 11/09/20 16:49 16:49 16:49 WBC RBC Hgb Hct MCV MCH MCHC RDW Plt Count MPV Immature Gran % (Auto) Neut % (Auto) Lymph % (Auto) [place] % (Auto) Eos % (Auto) Baso % (Auto) Lymph # (Auto) [place] # (Auto) Eos # (Auto) Baso # (Auto) Abs Immat Gran (auto) Absolute Neuts (auto) Absolute Nucleated RBC Nucleated RBC % (auto) Smear Tech's Comments PT INR APTT O2 Saturation ABG pH at Pt Temp ABG pH (Temp Correct) ABG pCO2 at Pt Temp ABG pCO2 (Temp Corrct ABG pO2 at Pt Temp ABG pO2 (Temp Correct ABG HCO3 ABG Base Excess (Actual) Sodium 138 Potassium 4.5 Chloride 108 Carbon Dioxide 17 L Anion Gap 18 BUN 40 H D Creatinine 2.18 H Estim Creat Clear Calc 41.5 Estimated GFR 30 POC Glucose Random Glucose 184 H Lactic Acid 0.8 Calcium 8.2 L Total Bilirubin 2.1 H Direct Bilirubin 1.6 H AST 30 ALT 36 Alkaline Phosphatase 159 H Troponin I High Sens 60.4 H* B-Natriuretic Peptide Total Protein 6.3 L Albumin 3.9 Urine Color Urine Appearance Urine pH Ur Specific [place] Urine Protein Urine Glucose (UA) Urine Ketones Urine Blood Urine Nitrite Ur Leukocyte Esterase Urine RBC Urine WBC Urine WBC Clumps Ur Squamous Epith Cells Amorphous Sediment Urine Bacteria Urine Mucus COVID-19 ([facility]) COVID-19 [employer] Com 11/09/20 11/09/20 11/09/20 16:49 16:49 16:54 WBC RBC Hgb Hct MCV MCH MCHC RDW Plt Count MPV Immature Gran % (Auto) Neut % (Auto) Lymph % (Auto) [place] % (Auto) Eos % (Auto) Baso % (Auto) Lymph # (Auto) [place] # (Auto) Eos # (Auto) Baso # (Auto) Abs Immat Gran (auto) Absolute Neuts (auto) Absolute Nucleated RBC Nucleated RBC % (auto) Smear Tech's Comments PT INR APTT O2 Saturation 98.0 ABG pH at Pt Temp 7.30 L ABG pH (Temp Correct) 7.31 L ABG pCO2 at Pt Temp 32 ABG pCO2 (Temp Corrct 32 ABG pO2 at Pt Temp 112 H ABG pO2 (Temp Correct 109 H ABG HCO3 16 L ABG Base Excess (Actual) -8.4 Sodium Potassium Chloride Carbon Dioxide Anion Gap BUN Creatinine Estim Creat Clear Calc Estimated GFR POC Glucose Random Glucose Lactic Acid Calcium Total Bilirubin Direct Bilirubin AST ALT Alkaline Phosphatase Troponin I High Sens B-Natriuretic Peptide 59 Total Protein Albumin Urine Color Urine Appearance Urine pH Ur Specific [place] Urine Protein Urine Glucose (UA) Urine Ketones Urine Blood Urine Nitrite Ur Leukocyte Esterase Urine RBC Urine WBC Urine WBC Clumps Ur Squamous Epith Cells Amorphous Sediment Urine Bacteria Urine Mucus COVID-19 ([facility]) Negative COVID-19 Clin Com See Note 11/09/20 11/10/20 11/10/20 20:16 01:09 02:35 WBC RBC Hgb Hct MCV MCH MCHC RDW Plt Count MPV Immature Gran % (Auto) Neut % (Auto) Lymph % (Auto) [place] % (Auto) Eos % (Auto) Baso % (Auto) Lymph # (Auto) [place] # (Auto) Eos # (Auto) Baso # (Auto) Abs Immat Gran (auto) Absolute Neuts (auto) Absolute Nucleated RBC Nucleated RBC % (auto) Smear Tech's Comments PT INR APTT O2 Saturation ABG pH at Pt Temp ABG pH (Temp Correct) ABG pCO2 at Pt Temp ABG pCO2 (Temp Corrct ABG pO2 at Pt Temp ABG pO2 (Temp Correct ABG HCO3 ABG Base Excess (Actual) Sodium Potassium Chloride Carbon Dioxide Anion Gap BUN Creatinine Estim Creat Clear Calc Estimated GFR POC Glucose Random Glucose Lactic Acid Calcium Total Bilirubin Direct Bilirubin AST ALT Alkaline Phosphatase Troponin I High Sens 236.0 H* D 316.1 H* B-Natriuretic Peptide Total Protein Albumin Urine Color [place] Urine Appearance HAZY Urine pH 5.5 Ur Specific [place] 1.025 Urine Protein 1+ H Urine Glucose (UA) NEG Urine Ketones NEG Urine Blood 2+ H Urine Nitrite NEG Ur Leukocyte Esterase 2+ H Urine RBC 5-9 H Urine WBC 50-75 H Urine WBC Clumps NOTED Ur Squamous Epith Cells TRACE Amorphous Sediment TRACE Urine Bacteria TRACE Urine Mucus TRACE COVID-19 ([facility]) COVID-19 Clin Com 11/10/20 11/10/20 11/10/20 04:46 04:46 07:17 WBC 8.8 RBC 4.33 L Hgb 13.8 L Hct 44.4 MCV 102.5 H MCH 31.9 MCHC 31.1 RDW 14.2 Plt Count 137 L MPV 11.1 Immature Gran % (Auto) 0.9 H Neut % (Auto) 75.3 H Lymph % (Auto) 10.2 L [place] % (Auto) 12.5 H Eos % (Auto) 1.0 Baso % (Auto) 0.1 Lymph # (Auto) 0.9 L [place] # (Auto) 1.1 Eos # (Auto) 0.1 Baso # (Auto) 0.0 Abs Immat Gran (auto) 0.08 H Absolute Neuts (auto) 6.7 Absolute Nucleated RBC 0.000 Nucleated RBC % (auto) 0.0 Smear Tech's Comments VERIFIED PT INR APTT O2 Saturation ABG pH at Pt Temp ABG pH (Temp Correct) ABG pCO2 at Pt Temp ABG pCO2 (Temp Corrct ABG pO2 at Pt Temp ABG pO2 (Temp Correct ABG HCO3 ABG Base Excess (Actual) Sodium 141 Potassium 4.7 Chloride 109 H Carbon Dioxide 23 Anion Gap 14 BUN 39 H Creatinine 2.08 H Estim Creat Clear Calc 43.5 Estimated GFR 31 POC Glucose 126 H Random Glucose 118 H D Lactic Acid Calcium 8.0 L Total Bilirubin Direct Bilirubin AST ALT Alkaline Phosphatase Troponin I High Sens B-Natriuretic Peptide Total Protein Albumin Urine Color Urine Appearance Urine pH Ur Specific [place] Urine Protein Urine Glucose (UA) Urine Ketones Urine Blood Urine Nitrite Ur Leukocyte Esterase Urine RBC Urine WBC Urine WBC Clumps Ur Squamous Epith Cells Amorphous Sediment Urine Bacteria Urine Mucus COVID-19 ([facility]) COVID-19 Clin Com 11/10/20 07:28 WBC RBC Hgb Hct MCV MCH MCHC RDW Plt Count MPV Immature Gran % (Auto) Neut % (Auto) Lymph % (Auto) [place] % (Auto) Eos % (Auto) Baso % (Auto) Lymph # (Auto) [place] # (Auto) Eos # (Auto) Baso # (Auto) Abs Immat Gran (auto) Absolute Neuts (auto) Absolute Nucleated RBC Nucleated RBC % (auto) Smear Tech's Comments PT INR APTT O2 Saturation ABG pH at Pt Temp ABG pH (Temp Correct) ABG pCO2 at Pt Temp ABG pCO2 (Temp Corrct ABG pO2 at Pt Temp ABG pO2 (Temp Correct ABG HCO3 ABG Base Excess (Actual) Sodium Potassium Chloride Carbon Dioxide Anion Gap BUN Creatinine Estim Creat Clear Calc Estimated GFR POC Glucose Random Glucose Lactic Acid Calcium Total Bilirubin Direct Bilirubin AST ALT Alkaline Phosphatase Troponin I High Sens 223.2 H* B-Natriuretic Peptide Total Protein Albumin Urine Color Urine Appearance Urine pH Ur Specific [place] Urine Protein Urine Glucose (UA) Urine Ketones Urine Blood Urine Nitrite Ur Leukocyte Esterase Urine RBC Urine WBC Urine WBC Clumps Ur Squamous Epith Cells Amorphous Sediment Urine Bacteria Urine Mucus COVID-19 ([facility]) COVID-19 Clin Com Quality Stroke Does the patient have a stroke diagnosis?: No VTE Prior VTE?: No VTE Risk Level:: Medical - moderate - high VTE Device Contraindication: Treatment Not Indicated VTE Drug Contraindication: N/A - Med Ordered Assessment and Plan (1) UTI (urinary tract infection): Status: Acute (2) Encephalopathy: Status: Acute Assessment and Plan: day_2 75-year-old male with past medical history of chronic back pain, diabetes who presents to the hospital with encephalopathy 1. toxic /metabolic encephalopathy - possibly secondary to polypharmacy as patient is on sedatives including his narcotic medications for pain as well as Ativan worsened by acute infection hold oxycodone as well as Ativan for his pain and anxiety, he is also on muscle relaxant which is also sedative. - he has acute UTI Will continue IV antibiotic for UTI, hold off on the sedative medications, care team consult for anxiety and medication overuse. 2. UTI - patient denies any urinary symptoms - has positive UA on IV ceftriaxone day2 - follow cultures urine and blood pendig 3. MARICHUY: probable has ckd stage3: cr fluctuating between 1.6-1.8 range since 2019 - most likely secondary to poor oral intake on IV fluids, creatinine improving - follow BMP 5. diabetes: Controlled, Fingersticks are running 140s - hold glipizide - start low-dose sliding scale insulin - diabetic diet 6. hypertension - stable hold losartan due to marichuy on ckd 7.: Sleep apnea: Currently could not able to get CPAP out patiently, , working with his primary doctor Will add or night pulse oximetry
[2020-11-10 11:14] LABS: Glucose, Whole Blood 139 mg/dL (60-115)
--- NOTE | 2020-11-10 12:18 | MHC.CM.PN ---
Addendum entered by Alma Palacios 11/10/20 14:21: CM RETURNED TO PTS ROOM AT THE REQUEST OF HIS . PTS AND ELDEST DAUGHTER WERE IN THE ROOM AND UPSET THAT THE PT HAD NAMED HIS YOUNGER DAUGHTER THE PRIMARY AGENT. PTS ASKED HOW SHE COULD CHANGE IT. CM EXPLAINED THE PT WOULD HAVE TO CHANGE THE DOCUMENT HOWEVER CM SUGGESTED HE THINK ABOUT IT AND SPEAK TO CM WHEN NO FAMILY IS PRESENT TO ENSURE HE IS NOT FEELING PRESSURED. CM AGREED TO DISCARD THE HCP THAT WAS COMPLETED EARLIER IN THE DAY. PT THEN REPORTS HE WAS WORKING ON A HCP WITH DR. HINTON. CM SUGGESTED HE CONTINUE THAT PROCESS. PTS DAUGHTER THEN ASKED IF CM COULD WRITE A RECOMMENDATION THAT SHE BE HIS RN INTERNSHIP. CM EXPLAINED THIS WOULD ALSO NEED TO BE DEFERRED TO THE PTS PCP. Original Note: CM MET WITH PT AND HIS DAUGHTER, COLUMBA, WHO WAS AT BEDSIDE. PT REPORTEDLY LIVES WITH HIS , OLDEST DAUGHTER, SON AND THREE GRANDSONS. 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 PT REPORTS HE HAS A CPAP HE IS SUPPOSED TO USE HOWEVER THE MASK DOES NOT FIT HIS FACE SO HE DOES NOT BOTHER. HE AND HIS DAUGHTER REPORT THEY HAVE DISCUSSED THIS WITH THE DME PROVIDER AND THEY TOLD THE PT IT WAS DUE TO THE SIZE OF THE BRIDGE OF HIS NOSE AND THERE IS NOTHING THEY CAN DO ABOUT IT. PT REPORTS HE IS NOW VERY CONCERNED ABOUT GOING WITHOUT A PROPERLY FITTING CPAP. PT COMPLETED A HCP TODAY NAMING HIS DAUGHTER, COLUMBA, AND , JANIE, HIS PRIMARY AND ALTERNATE AGENTS RESPECTIVELY. PT REPORTS HIS PCP IS OSMAN HINTON. CURRENT DC PLAN IS HOME FAMILY TO TRANSPORT
--- NOTE | 2020-11-10 12:42 | PM.CNCAR ---
History of Present Illness History of Present Illness Date of Service: 11/10/20 Requesting physician: Steve Diaz Chief complaint: Elevated troponins Narrative: 75-year-old gentleman with background history of obstructive sleep apnea and lung nodules. He was using as needed oxygen at home. He is presenting for hypoxia and change in mental status. This was thought to be due to accident intake of extra doses of Ativan and narcotics. He was hypoxic and has been noticed to have elevated troponin levels. Initial troponin level was 60 which increased to 236 and then 316 and has come down to 223 now. He is denying any chest discomfort or shortness of breath. Daughter was in the room who pointed out that 2 weeks ago he complained of some chest discomfort to his . Patient is quite vague about the pain in his chest at that time and is saying that he had some uncomfortable feeling in his chest but history is quite limited. EKGs showing sinus rhythm without any significant changes. He is back to his baseline. He is denying any symptoms. He is otherwise independent in walking and has no symptoms when he is walking or doing activities. Review of Systems Review of Systems: No chest pain or shortness of breath Yes all other systems are reviewed and are negative PMFSH Past Medical History Medical History Chronic back pain CVA (cerebral vascular accident) Lung nodule Oxygen dependent Sleep apnea Social History Social History Household Members: Spouse Housing: House Do you presently have visiting nurse or other home services: No Patient Tobacco Use Status: Former Tobacco user Use of substances other than those prescribed or required for medical reasons: No Have you been hit, kicked, punched, or otherwise hurt by someone within the past year? If so, by whom?: No Do you feel safe in your current relationship?: Yes Is there a partner from a previous relationship who is making you feel unsafe now?: No Are you made to feel afraid or neglected: No Advance Directives: No Advance Directives Information Provided: Yes Do you have thoughts of harming others: None Do you have a plan to hurt others: No Plan Recently lost weight without trying: No Eating poorly because of decreased appetite: No Nutrition Risks: No Nutritional Risk Poor oral hygiene: No Current occupational status: retired Meds Allergies Allergy/AdvReac Type Severity Reaction Status Date / Time codeine [CODEINE] Allergy Intermediate RASH Verified 11/09/20 17:07 morphine [MORPHINE] Allergy Mild NAUSEA Verified 11/09/20 17:07 ibuprofen [From MOTRIN] Allergy Unknown NAUSEA Verified 11/09/20 17:07 Active Medications: Current Medications Generic Name Dose Route Start Last Admin Trade Name Freq PRN Reason Stop Dose Admin Acetaminophen 650 mg 11/09/20 23:51 11/10/20 08:24 Acetaminophen 325 Mg Tablet PO 650 mg Q6H PRN Administration Pain, Mild (Pain Scale 1-3) Albuterol Sulfate 2 puff 11/10/20 12:00 Albuterol Sulfate 90 Mcg 8 Gm Inhaler INHALE RQ4H [facility] Atorvastatin Calcium 10 mg 11/10/20 09:00 11/10/20 08:55 Atorvastatin Calcium 10 Mg Tablet PO 10 mg DAILY [facility] Administration Carisoprodol 700 mg 11/10/20 09:00 11/10/20 08:23 Carisoprodol 350 Mg Tablet PO 700 mg TID [facility] Administration Docusate Sodium 100 mg 11/09/20 23:51 Docusate Sodium 100 Mg Capsule PO DAILY PRN Constipation Heparin Sodium (Porcine) 5,000 unit 11/09/20 23:51 11/10/20 00:57 Heparin Sodium,Porcine 5,000 Unit/Ml Vial SUBCUT Not Given Q12H [facility] Lactated Ringer's 1,000 mls @ 100 mls/hr 11/09/20 23:51 11/10/20 11:27 Lr IVCONT Infused .Q10H [facility] Infusion Ceftriaxone Sodium 1 gm/ 50 mls @ 100 mls/hr 11/10/20 07:00 Sodium Chloride IV Q24H [facility] Insulin Human Lispro 0 unit 11/10/20 07:30 11/10/20 08:33 Insulin Lispro 100 Unit/Ml 3 Ml Vial SUBCUT Not Given QIDACHS [facility] Protocol Losartan Potassium 50 mg 11/10/20 09:00 11/10/20 08:57 Losartan Potassium 50 Mg Tablet PO 50 mg DAILY [facility] Administration Protocol Omeprazole 20 mg 11/10/20 06:30 11/10/20 05:58 Omeprazole 20 Mg Capsule.Dr PO 20 mg DAILY@0630 [facility] Administration Ondansetron HCl 4 mg 11/09/20 23:51 Ondansetron Hcl 4 Mg/2 Ml Vial IVPUSH Q8H PRN Nausea and Vomiting Prednisone 5 mg 11/09/20 23:51 Prednisone 5 Mg Tablet PO ONCE [facility] Sodium Chloride 3 ml 11/10/20 00:00 11/10/20 10:37 0.9 % Sodium Chloride Flush 3 Ml Syringe IVFLUSH Not Given QSHIFT [facility] Home Medications Medication Instructions Recorded Confirmed Last Taken Type albuterol sulfate [Ventolin HFA] 2 puff INHALATION Q3-4H 11/09/20 11/09/20 Unknown History allopurinol 2 tab PO DAILY 11/09/20 11/09/20 Unknown History carisoprodol 2 tab PO TID 11/09/20 11/09/20 Unknown History glipizide 1 tab PO BID 11/09/20 11/09/20 Unknown History lorazepam 1 tab PO TID 11/09/20 11/09/20 Unknown History losartan 1 tab PO DAILY 11/09/20 11/09/20 Unknown History omeprazole 1 cap PO DAILY 11/09/20 11/09/20 Unknown History oxycodone [OxyContin] 1 tab PO BID 11/09/20 11/09/20 Unknown History oxycodone [OxyContin] 1 tab PO QPM 11/09/20 11/09/20 Unknown History prednisone 1 tab PO ONCE 11/09/20 11/09/20 Unknown History simvastatin 1 tab PO DAILY 11/09/20 11/09/20 Unknown History Physical Exam Vital Signs: Vital Signs: Last Vital Signs Temp 98.2 F 11/10/20 11:36 Pulse 93 11/10/20 11:50 Resp 20 11/10/20 11:36 BP 117/60 11/10/20 11:36 Pulse Ox 93 11/10/20 11:36 Body Mass Index 42.3 GENERAL APPEARANCE: in no acute distress, pleasant. NECK: no carotid bruit, no jugular venous distention. SKIN: no suspicious lesions, warm and dry. HEART: no murmurs, regular rate and rhythm. LUNGS: clear to auscultation bilaterally. ABDOMEN: soft, nontender. EXTREMITIES: no edema. PERIPHERAL PULSES: equal. NEUROLOGIC: No gross deficits, AAO X 3 Results Labs and Meds Result diagrams: 11/10/20 04:46 11/10/20 04:46 Lab results: Laboratory Results - last 24 hr 11/09/20 11/09/20 11/09/20 16:17 16:49 16:49 WBC 10.6 RBC 4.58 L Hgb 14.7 Hct 46.4 MCV 101.3 H MCH 32.1 MCHC 31.7 RDW 14.1 Plt Count 134 L MPV 11.3 Immature Gran % (Auto) 1.0 H Neut % (Auto) 83.4 H Lymph % (Auto) 3.6 L [place] % (Auto) 11.6 H Eos % (Auto) 0.2 Baso % (Auto) 0.2 Lymph # (Auto) 0.4 L [place] # (Auto) 1.2 Eos # (Auto) 0.0 Baso # (Auto) 0.0 Abs Immat Gran (auto) 0.11 H Absolute Neuts (auto) 8.8 H Absolute Nucleated RBC 0.000 Nucleated RBC % (auto) 0.0 Smear Tech's Comments VERIFIED PT 11.2 INR 1.0 APTT 19.9 L O2 Saturation ABG pH at Pt Temp ABG pH (Temp Correct) ABG pCO2 at Pt Temp ABG pCO2 (Temp Corrct ABG pO2 at Pt Temp ABG pO2 (Temp Correct ABG HCO3 ABG Base Excess (Actual) Sodium Potassium Chloride Carbon Dioxide Anion Gap BUN Creatinine Estim Creat Clear Calc Estimated GFR POC Glucose 172 H Random Glucose Lactic Acid Calcium Total Bilirubin Direct Bilirubin AST ALT Alkaline Phosphatase Total Creatine Kinase Troponin I High Sens B-Natriuretic Peptide Total Protein Albumin Urine Color Urine Appearance Urine pH Ur Specific [place] Urine Protein Urine Glucose (UA) Urine Ketones Urine Blood Urine Nitrite Ur Leukocyte Esterase Urine RBC Urine WBC Urine WBC Clumps Ur Squamous Epith Cells Amorphous Sediment Urine Bacteria Urine Mucus COVID-19 ([facility]) COVID-19 Clin Com 11/09/20 11/09/20 11/09/20 16:49 16:49 16:49 WBC RBC Hgb Hct MCV MCH MCHC RDW Plt Count MPV Immature Gran % (Auto) Neut % (Auto) Lymph % (Auto) [place] % (Auto) Eos % (Auto) Baso % (Auto) Lymph # (Auto) [place] # (Auto) Eos # (Auto) Baso # (Auto) Abs Immat Gran (auto) Absolute Neuts (auto) Absolute Nucleated RBC Nucleated RBC % (auto) Smear Tech's Comments PT INR APTT O2 Saturation ABG pH at Pt Temp ABG pH (Temp Correct) ABG pCO2 at Pt Temp ABG pCO2 (Temp Corrct ABG pO2 at Pt Temp ABG pO2 (Temp Correct ABG HCO3 ABG Base Excess (Actual) Sodium 138 Potassium 4.5 Chloride 108 Carbon Dioxide 17 L Anion Gap 18 BUN 40 H D Creatinine 2.18 H Estim Creat Clear Calc 41.5 Estimated GFR 30 POC Glucose Random Glucose 184 H Lactic Acid 0.8 Calcium 8.2 L Total Bilirubin 2.1 H Direct Bilirubin 1.6 H AST 30 ALT 36 Alkaline Phosphatase 159 H Total Creatine Kinase Troponin I High Sens 60.4 H* B-Natriuretic Peptide Total Protein 6.3 L Albumin 3.9 Urine Color Urine Appearance Urine pH Ur Specific [place] Urine Protein Urine Glucose (UA) Urine Ketones Urine Blood Urine Nitrite Ur Leukocyte Esterase Urine RBC Urine WBC Urine WBC Clumps Ur Squamous Epith Cells Amorphous Sediment Urine Bacteria Urine Mucus COVID-19 ([facility]) COVID-19 Clin Com 11/09/20 11/09/20 11/09/20 16:49 16:49 16:54 WBC RBC Hgb Hct MCV MCH MCHC RDW Plt Count MPV Immature Gran % (Auto) Neut % (Auto) Lymph % (Auto) [place] % (Auto) Eos % (Auto) Baso % (Auto) Lymph # (Auto) [place] # (Auto) Eos # (Auto) Baso # (Auto) Abs Immat Gran (auto) Absolute Neuts (auto) Absolute Nucleated RBC Nucleated RBC % (auto) Smear Tech's Comments PT INR APTT O2 Saturation 98.0 ABG pH at Pt Temp 7.30 L ABG pH (Temp Correct) 7.31 L ABG pCO2 at Pt Temp 32 ABG pCO2 (Temp Corrct 32 ABG pO2 at Pt Temp 112 H ABG pO2 (Temp Correct 109 H ABG HCO3 16 L ABG Base Excess (Actual) -8.4 Sodium Potassium Chloride Carbon Dioxide Anion Gap BUN Creatinine Estim Creat Clear Calc Estimated GFR POC Glucose Random Glucose Lactic Acid Calcium Total Bilirubin Direct Bilirubin AST ALT Alkaline Phosphatase Total Creatine Kinase Troponin I High Sens B-Natriuretic Peptide 59 Total Protein Albumin Urine Color Urine Appearance Urine pH Ur Specific [place] Urine Protein Urine Glucose (UA) Urine Ketones Urine Blood Urine Nitrite Ur Leukocyte Esterase Urine RBC Urine WBC Urine WBC Clumps Ur Squamous Epith Cells Amorphous Sediment Urine Bacteria Urine Mucus COVID-19 ([facility]) Negative COVID-19 Clin Com See Note 11/09/20 11/10/20 11/10/20 20:16 01:09 02:35 WBC RBC Hgb Hct MCV MCH MCHC RDW Plt Count MPV Immature Gran % (Auto) Neut % (Auto) Lymph % (Auto) [place] % (Auto) Eos % (Auto) Baso % (Auto) Lymph # (Auto) [place] # (Auto) Eos # (Auto) Baso # (Auto) Abs Immat Gran (auto) Absolute Neuts (auto) Absolute Nucleated RBC Nucleated RBC % (auto) Smear Tech's Comments PT INR APTT O2 Saturation ABG pH at Pt Temp ABG pH (Temp Correct) ABG pCO2 at Pt Temp ABG pCO2 (Temp Corrct ABG pO2 at Pt Temp ABG pO2 (Temp Correct ABG HCO3 ABG Base Excess (Actual) Sodium Potassium Chloride Carbon Dioxide Anion Gap BUN Creatinine Estim Creat Clear Calc Estimated GFR POC Glucose Random Glucose Lactic Acid Calcium Total Bilirubin Direct Bilirubin AST ALT Alkaline Phosphatase Total Creatine Kinase Troponin I High Sens 236.0 H* D 316.1 H* B-Natriuretic Peptide Total Protein Albumin Urine Color [place] Urine Appearance HAZY Urine pH 5.5 Ur Specific [place] 1.025 Urine Protein 1+ H Urine Glucose (UA) NEG Urine Ketones NEG Urine Blood 2+ H Urine Nitrite NEG Ur Leukocyte Esterase 2+ H Urine RBC 5-9 H Urine WBC 50-75 H Urine WBC Clumps NOTED Ur Squamous Epith Cells TRACE Amorphous Sediment TRACE Urine Bacteria TRACE Urine Mucus TRACE COVID-19 ([facility]) COVID-19 Clin Com 11/10/20 11/10/20 11/10/20 04:46 04:46 07:17 WBC 8.8 RBC 4.33 L Hgb 13.8 L Hct 44.4 MCV 102.5 H MCH 31.9 MCHC 31.1 RDW 14.2 Plt Count 137 L MPV 11.1 Immature Gran % (Auto) 0.9 H Neut % (Auto) 75.3 H Lymph % (Auto) 10.2 L [place] % (Auto) 12.5 H Eos % (Auto) 1.0 Baso % (Auto) 0.1 Lymph # (Auto) 0.9 L [place] # (Auto) 1.1 Eos # (Auto) 0.1 Baso # (Auto) 0.0 Abs Immat Gran (auto) 0.08 H Absolute Neuts (auto) 6.7 Absolute Nucleated RBC 0.000 Nucleated RBC % (auto) 0.0 Smear Tech's Comments VERIFIED PT INR APTT O2 Saturation ABG pH at Pt Temp ABG pH (Temp Correct) ABG pCO2 at Pt Temp ABG pCO2 (Temp Corrct ABG pO2 at Pt Temp ABG pO2 (Temp Correct ABG HCO3 ABG Base Excess (Actual) Sodium 141 Potassium 4.7 Chloride 109 H Carbon Dioxide 23 Anion Gap 14 BUN 39 H Creatinine 2.08 H Estim Creat Clear Calc 43.5 Estimated GFR 31 POC Glucose 126 H Random Glucose 118 H D Lactic Acid Calcium 8.0 L Total Bilirubin Direct Bilirubin AST ALT Alkaline Phosphatase Total Creatine Kinase 3857 H Troponin I High Sens B-Natriuretic Peptide Total Protein Albumin Urine Color Urine Appearance Urine pH Ur Specific [place] Urine Protein Urine Glucose (UA) Urine Ketones Urine Blood Urine Nitrite Ur Leukocyte Esterase Urine RBC Urine WBC Urine WBC Clumps Ur Squamous Epith Cells Amorphous Sediment Urine Bacteria Urine Mucus COVID-19 ([facility]) COVID-19 Clin Com 11/10/20 11/10/20 07:28 11:06 WBC RBC Hgb Hct MCV MCH MCHC RDW Plt Count MPV Immature Gran % (Auto) Neut % (Auto) Lymph % (Auto) [place] % (Auto) Eos % (Auto) Baso % (Auto) Lymph # (Auto) [place] # (Auto) Eos # (Auto) Baso # (Auto) Abs Immat Gran (auto) Absolute Neuts (auto) Absolute Nucleated RBC Nucleated RBC % (auto) Smear Tech's Comments PT INR APTT O2 Saturation ABG pH at Pt Temp ABG pH (Temp Correct) ABG pCO2 at Pt Temp ABG pCO2 (Temp Corrct ABG pO2 at Pt Temp ABG pO2 (Temp Correct ABG HCO3 ABG Base Excess (Actual) Sodium Potassium Chloride Carbon Dioxide Anion Gap BUN Creatinine Estim Creat Clear Calc Estimated GFR POC Glucose 139 H Random Glucose Lactic Acid Calcium Total Bilirubin Direct Bilirubin AST ALT Alkaline Phosphatase Total Creatine Kinase Troponin I High Sens 223.2 H* B-Natriuretic Peptide Total Protein Albumin Urine Color Urine Appearance Urine pH Ur Specific [place] Urine Protein Urine Glucose (UA) Urine Ketones Urine Blood Urine Nitrite Ur Leukocyte Esterase Urine RBC Urine WBC Urine WBC Clumps Ur Squamous Epith Cells Amorphous Sediment Urine Bacteria Urine Mucus COVID-19 ([facility]) COVID-19 Clin Com Imaging Radiologist's impression: Impressions Chest X-Ray 11/09/20 16:25 IMPRESSION: Interstitial prominence with right basilar atelectasis versus infiltrates and a probable trace right-sided pleural effusion, new when compared to the prior examination. Head CT 11/09/20 16:27 IMPRESSION: No acute intracranial hemorrhage or mass effect. Assessment and Plan (1) Altered mental status: Qualifiers: Altered mental status type: stupor Qualified Code(s): R40.1 - Stupor Status: Acute (2) Acute renal failure: Qualifiers: Acute renal failure type: unspecified Qualified Code(s): N17.9 - Acute kidney failure, unspecified Status: Acute (3) Elevated troponin level not due myocardial infarction: Status: Acute Pleasant 75 gentleman with accidental overdose of lorazepam and narcotics who presented with hypoxia and elevated troponin levels. He has no symptoms right now. EKG is nonspecific. I think the presentation is likely due to hypoxia leading to type 2 [place]. We will check echocardiogram tomorrow to assess for any structural issues of wall motion abnormalities. If in fact he has wall motion abnormalities and he may need further testing inpatient. Otherwise he can be discharged home once stable and can follow up with us for further workup as outpatient. Thank you for allowing me to participate in the care of your patient. Please feel free to contact me if you have any questions. Procedures Date of Service Date of Service: 11/10/20
[2020-11-10] MEDS: Heparin Sodium,Porcine 5,000 UNIT/ML VIAL 5000 UNIT SUBCUT ×2 (12:57→23:35)
[2020-11-10] MEDS: cefTRIAXone sodium 1 GM in 0.9 % Sodium Chloride 50 ML IV (12:59)
[2020-11-10] MEDS: 0.9 % Sodium Chloride Flush 3 ML SYRINGE IVFLUSH ×2 (15:23→21:05)
--- NOTE | 2020-11-10 15:50 | MHC.CARE ---
CARE team consult received. Will meet with pt this afternoon.
[2020-11-10 16:17] LABS: Glucose, Whole Blood 173 mg/dL (60-115)
--- NOTE | 2020-11-10 16:52 | MHC.CARE ---
CARE team met with pt in rm [id number]. Alert and oriented, pleasant on approach. Denied having thoughts of suicide or wanting to harm self. Reported that prior to arrival to the ED on 11/09 that he had went to take his midday dose of ativan, but instead took an extra dose of oxycontin. He denied that this was an attempt to harm himself, passively or intentionally. Expressed frustration with the makeup of his household at this time, noting that in addition to his and himself, there are 7 family members living in their 5 room, ranch home. Stated that his son, daughter in law, their three children, and his daughter have been living in the home for the past 6 years due to their own housing instability. His son has been actively trying to get his own home, however keeps encountering set backs, such as their car breaking down, pandemic, etc. He reported that he tries to get out of the house sometimes in order to have space away from the home, either going for a walk or fishing, and that he and his will go on trips up to [employer] and other places in the area. Reported feeling that his ativan, which has been prescribed by his PCP for many years, usually helps with his anxiety, however the bickering and tension in the home has been increasing over the past few years. Pt declined resources and therapy referral at this time. CARE team available if needed. Updated [facility] nurse and Dr. Tejeda re: outcome of consult. Recommended psych consult if considering to taper pt off the ativan due to concerns about how it interacts with his sleep apnea.
[2020-11-10 19:55] LABS: Glucose, Whole Blood 151 mg/dL (60-115)
[2020-11-10] MEDS: Insulin Lispro 100 UNIT/ML 3 ML VIAL SUBCUT (21:04)
[2020-11-11] VITALS (12 sets, daily range): BP systolic 128–187; BP diastolic 67–97; PULSE 80–106; RESP 20; TEMP 36.5–37.2; O2SAT 90–96
[2020-11-11] MEDS: Albuterol Sulfate 90 MCG 8 GM INHALER 2 PUFF INHALE ×5 (00:52→20:19)
[2020-11-11] MEDS: Lactated Ringers 1,000 ML 100 ML IVCONT (06:37)
[2020-11-11] MEDS: Omeprazole 20 MG CAPSULE.DR PO (06:37)
[2020-11-11] MEDS: Acetaminophen 325 MG TABLET 650 MG PO ×2 (06:39→13:39)
[2020-11-11] MEDS: cefTRIAXone sodium 1 GM in 0.9 % Sodium Chloride 50 ML IV (06:39)
[2020-11-11 06:47] LABS: Mean Corpuscular HGB Conc 31.7 g/dl (31.0-36.0); Red Cell Distribution Width 13.9 % (11.0-16.0)
[2020-11-11 06:49] LABS: Hematocrit 43.2 % (42-52); Hemoglobin 13.7 g/dl (14.0-18.0); Mean Corpuscular Hemoglobin 31.6 pg (27.0-33.0); Mean Corpuscular Volume 99.8 fL (80-98); Mean Platelet Volume 11.5 fL (9.4-12.4); Platelet Count 129 X10*3/uL (160-400); Red Blood Count 4.33 X10*6/uL (4.60-5.80); White Blood Count 6.9 X10*3/uL (4.8-10.8)
[2020-11-11 07:26] LABS: Glucose, Whole Blood 149 mg/dL (60-115)
[2020-11-11 07:44] LABS: Anion Gap 16 (12-20); Blood Urea Nitrogen 32 mg/dL (9-16); Calcium 8.7 mg/dL (8.4-10.2); Carbon Dioxide 21 mmol/L (22-29); Chloride 110 mmol/L (96-108); Creatinine Clr Calc Pharmacy 68.1; Estimated Glomerular Filt Rate 53; Glucose Random 138 mg/dL (60-115); Potassium 4.5 mmol/L (3.3-5.1); Sodium 142 mmol/L (135-145)
[2020-11-11] MEDS: Atorvastatin Calcium 10 MG TABLET PO (08:12)
[2020-11-11] MEDS: carisoprodoL 350 MG TABLET 700 MG PO ×3 (08:12→20:22)
[2020-11-11] MEDS: 0.9 % Sodium Chloride Flush 3 ML SYRINGE IVFLUSH (08:13)
--- NOTE | 2020-11-11 09:57 | P.CNPS_ITS ---
History of Present Illness Date of Service: 11/11/2020 Chief Complaint: Elevated troponins Reason for Consult: Encephalopathy,-probably related to overuse of psych medication. Requesting physician: Shobha Tejeda Discussed with referring provider: Yes Sources of Information: patient interviewed, chart reviewed and crisis/core team assessment reviewed HPI Narrative: Patient is a 75-year-old male who presented to the hospital after his found him on the floor. O2 level at home was found to be 49% on 2 L of oxygen, and EMS was activated. Patient receives 120 MME OxyContin per day due to chronic back pain. He also receives 33.3 LME lorazepam per day for anxiety. He also receives total dose of 2100mg carisiprodol daily. A [employer] search yielded scripts for OxyContin ER 20 mg daily, OxyContin ER 30 mg b.i.d., carisoprodol 350 mg 2 t.i.d., and lorazepam 1 mg t.i.d.. These have been prescribed by patient's PCP, and filled consistently for at least the past 2 years. Psychiatry was consulted due to encephalopathy, most likely related to overuse of psych meds. This policy writer sales met with patient this morning 09:15. He was sitting up on side of bed, eating breakfast. Fairly appropriate grooming, somewhat dishevelled. He was alert and oriented times 3-4. Able to state full name, for location as [facility], and reported day as Wednesday (day is Wednesday). He reported that he knew he was in the hospital due to taking too much of my medications , and falling on the floor . Patient reports that I made a mistake, and accidentally took too much of my medication . He explained that his and his daughter pre fill his medications for 2 days at a time, and leave them in his bureau drawer. He says that he was going to bed, and he 'simply took the wrong pills . He says that he has multiple pills that are small and white, and that he got them mixed up . He denies any history of SI attempt, and reports that this was in no way any type of intentional act to harm himself. He denies any use of alcohol, marijuana, nicotine, or other substances. He does report that he is a 70% service connected , and that he has chronic anxiety. When asked if he is experiencing any anxiety this am, he stated A little bit, its hard to say . Past Psychiatric History: patient endorses he is a Service connected , with agent orange exposure, states he has chronic anxiety. Does not offer any further information regarding psych history. Not receiving any other medication for anxiety other than lorazepam. Denies SI attempt. Denies AH, VH, HI. Past medication trials: none reported. Patient appeared wifty, with some intermittent confusion during encounter, although overall able converse in a coherent manner with this policy writer sales. He did explain that his was in process of getting him a proper CPAP machine and face mask, which he believed would help him sleep at night, as well as help with his level of alertness. He states that he does have oxygen at home, but that is not continuous but rather intermittent. He did report that he is experiencing some lower left back pain this morning, which he attributes to the fall prior to his admission. Review of Systems Constitutional: Reports as per HPI and Reports no additional constitutional complaints Eyes: Reports no additional eye complaints Reports system reviewed and no additional complaints, except as documented and Reports Normal hearing present Cardiovascular: Reports no additional cardiovascular complaints Respiratory: Reports no additional respiratory complaints Gastrointestinal: Reports no additional gastrointestinal complaints Musculoskeletal: Reports back pain (chronic back pain, states left side sore where he fell prior to admit.) Reports Normal hearing present and Reports confusion (intermittent during interview, difficulty with details, word-finding. ) Psychiatric: Reports anxiety and Reports confusion (intermittent during interview, difficulty with details, word-finding. ) Endocrine: Reports no additional endocrine complaints and Reports as per HPI [facility] Medical History Chronic back pain CVA (cerebral vascular accident) Lung nodule Oxygen dependent Sleep apnea Diagnostics Vital Signs (24Hr): Vital Signs - 24 hr 11/10/20 11:36 11/10/20 11:50 11/10/20 15:15 Temperature 98.2 F 98.0 F Pulse Rate 92 93 100 Respiratory Rate 20 20 Blood Pressure 117/60 128/61 Pulse Oximetry 93 94 11/10/20 15:30 11/10/20 19:15 11/10/20 20:23 Temperature 97.2 F Pulse Rate 96 86 86 Respiratory Rate 20 Blood Pressure 100/54 L Pulse Oximetry 90 L 11/10/20 23:14 11/11/20 00:53 11/11/20 03:20 Temperature 98.2 F 97.7 F Pulse Rate 93 92 90 Respiratory Rate 20 20 Blood Pressure 133/69 175/80 H Pulse Oximetry 97 95 11/11/20 04:32 11/11/20 07:21 11/11/20 08:03 Temperature 98.6 F Pulse Rate 98 94 97 Respiratory Rate 20 Blood Pressure 167/87 H Pulse Oximetry 94 11/11/20 08:14 Temperature Pulse Rate Respiratory Rate Blood Pressure 167/87 H Pulse Oximetry Body Mass Index 42.3 Labs Results: 11/11/20 05:47 11/11/20 05:47 Labs: Laboratory Results - last 48 hr 11/09/20 11/09/20 11/09/20 16:17 16:49 16:49 WBC 10.6 RBC 4.58 L Hgb 14.7 Hct 46.4 MCV 101.3 H MCH 32.1 MCHC 31.7 RDW 14.1 Plt Count 134 L MPV 11.3 Immature Gran % (Auto) 1.0 H Neut % (Auto) 83.4 H Lymph % (Auto) 3.6 L [place] % (Auto) 11.6 H Eos % (Auto) 0.2 Baso % (Auto) 0.2 Lymph # (Auto) 0.4 L [place] # (Auto) 1.2 Eos # (Auto) 0.0 Baso # (Auto) 0.0 Abs Immat Gran (auto) 0.11 H Absolute Neuts (auto) 8.8 H Absolute Nucleated RBC 0.000 Nucleated RBC % (auto) 0.0 Smear Tech's Comments VERIFIED PT 11.2 INR 1.0 APTT 19.9 L O2 Saturation ABG pH at Pt Temp ABG pH (Temp Correct) ABG pCO2 at Pt Temp ABG pCO2 (Temp Corrct ABG pO2 at Pt Temp ABG pO2 (Temp Correct ABG HCO3 ABG Base Excess (Actual) Sodium Potassium Chloride Carbon Dioxide Anion Gap BUN Creatinine Estim Creat Clear Calc Estimated GFR POC Glucose 172 H Random Glucose Lactic Acid Calcium Total Bilirubin Direct Bilirubin AST ALT Alkaline Phosphatase Total Creatine Kinase Troponin I High Sens B-Natriuretic Peptide Total Protein Albumin Urine Color Urine Appearance Urine pH Ur Specific Wiggins Urine Protein Urine Glucose (UA) Urine Ketones Urine Blood Urine Nitrite Ur Leukocyte Esterase Urine RBC Urine WBC Urine WBC Clumps Ur Squamous Epith Cells Amorphous Sediment Urine Bacteria Urine Mucus COVID-19 ([facility]) COVID-19 Clin Com 11/09/20 11/09/20 11/09/20 16:49 16:49 16:49 WBC RBC Hgb Hct MCV MCH MCHC RDW Plt Count MPV Immature Gran % (Auto) Neut % (Auto) Lymph % (Auto) [place] % (Auto) Eos % (Auto) Baso % (Auto) Lymph # (Auto) [place] # (Auto) Eos # (Auto) Baso # (Auto) Abs Immat Gran (auto) Absolute Neuts (auto) Absolute Nucleated RBC Nucleated RBC % (auto) Smear Tech's Comments PT INR APTT O2 Saturation ABG pH at Pt Temp ABG pH (Temp Correct) ABG pCO2 at Pt Temp ABG pCO2 (Temp Corrct ABG pO2 at Pt Temp ABG pO2 (Temp Correct ABG HCO3 ABG Base Excess (Actual) Sodium 138 Potassium 4.5 Chloride 108 Carbon Dioxide 17 L Anion Gap 18 BUN 40 H D Creatinine 2.18 H Estim Creat Clear Calc 41.5 Estimated GFR 30 POC Glucose Random Glucose 184 H Lactic Acid 0.8 Calcium 8.2 L Total Bilirubin 2.1 H Direct Bilirubin 1.6 H AST 30 ALT 36 Alkaline Phosphatase 159 H Total Creatine Kinase Troponin I High Sens 60.4 H* B-Natriuretic Peptide Total Protein 6.3 L Albumin 3.9 Urine Color Urine Appearance Urine pH Ur Specific Wiggins Urine Protein Urine Glucose (UA) Urine Ketones Urine Blood Urine Nitrite Ur Leukocyte Esterase Urine RBC Urine WBC Urine WBC Clumps Ur Squamous Epith Cells Amorphous Sediment Urine Bacteria Urine Mucus COVID-19 ([facility]) COVID-19 Clin Com 11/09/20 11/09/20 11/09/20 16:49 16:49 16:54 WBC RBC Hgb Hct MCV MCH MCHC RDW Plt Count MPV Immature Gran % (Auto) Neut % (Auto) Lymph % (Auto) [place] % (Auto) Eos % (Auto) Baso % (Auto) Lymph # (Auto) [place] # (Auto) Eos # (Auto) Baso # (Auto) Abs Immat Gran (auto) Absolute Neuts (auto) Absolute Nucleated RBC Nucleated RBC % (auto) Smear Tech's Comments PT INR APTT O2 Saturation 98.0 ABG pH at Pt Temp 7.30 L ABG pH (Temp Correct) 7.31 L ABG pCO2 at Pt Temp 32 ABG pCO2 (Temp Corrct 32 ABG pO2 at Pt Temp 112 H ABG pO2 (Temp Correct 109 H ABG HCO3 16 L ABG Base Excess (Actual) -8.4 Sodium Potassium Chloride Carbon Dioxide Anion Gap BUN Creatinine Estim Creat Clear Calc Estimated GFR POC Glucose Random Glucose Lactic Acid Calcium Total Bilirubin Direct Bilirubin AST ALT Alkaline Phosphatase Total Creatine Kinase Troponin I High Sens B-Natriuretic Peptide 59 Total Protein Albumin Urine Color Urine Appearance Urine pH Ur Specific [place] Urine Protein Urine Glucose (UA) Urine Ketones Urine Blood Urine Nitrite Ur Leukocyte Esterase Urine RBC Urine WBC Urine WBC Clumps Ur Squamous Epith Cells Amorphous Sediment Urine Bacteria Urine Mucus COVID-19 ([facility]) Negative COVID-19 Clin Com See Note 11/09/20 11/10/20 11/10/20 20:16 01:09 02:35 WBC RBC Hgb Hct MCV MCH MCHC RDW Plt Count MPV Immature Gran % (Auto) Neut % (Auto) Lymph % (Auto) [place] % (Auto) Eos % (Auto) Baso % (Auto) Lymph # (Auto) [place] # (Auto) Eos # (Auto) Baso # (Auto) Abs Immat Gran (auto) Absolute Neuts (auto) Absolute Nucleated RBC Nucleated RBC % (auto) Smear Tech's Comments PT INR APTT O2 Saturation ABG pH at Pt Temp ABG pH (Temp Correct) ABG pCO2 at Pt Temp ABG pCO2 (Temp Corrct ABG pO2 at Pt Temp ABG pO2 (Temp Correct ABG HCO3 ABG Base Excess (Actual) Sodium Potassium Chloride Carbon Dioxide Anion Gap BUN Creatinine Estim Creat Clear Calc Estimated GFR POC Glucose Random Glucose Lactic Acid Calcium Total Bilirubin Direct Bilirubin AST ALT Alkaline Phosphatase Total Creatine Kinase Troponin I High Sens 236.0 H* D 316.1 H* B-Natriuretic Peptide Total Protein Albumin Urine Color ROMINA Urine Appearance HAZY Urine pH 5.5 Ur Specific [place] 1.025 Urine Protein 1+ H Urine Glucose (UA) NEG Urine Ketones NEG Urine Blood 2+ H Urine Nitrite NEG Ur Leukocyte Esterase 2+ H Urine RBC 5-9 H Urine WBC 50-75 H Urine WBC Clumps NOTED Ur Squamous Epith Cells TRACE Amorphous Sediment TRACE Urine Bacteria TRACE Urine Mucus TRACE COVID-19 ([facility]) COVID-19 Clin Com 11/10/20 11/10/20 11/10/20 04:46 04:46 07:17 WBC 8.8 RBC 4.33 L Hgb 13.8 L Hct 44.4 MCV 102.5 H MCH 31.9 MCHC 31.1 RDW 14.2 Plt Count 137 L MPV 11.1 Immature Gran % (Auto) 0.9 H Neut % (Auto) 75.3 H Lymph % (Auto) 10.2 L [place] % (Auto) 12.5 H Eos % (Auto) 1.0 Baso % (Auto) 0.1 Lymph # (Auto) 0.9 L [place] # (Auto) 1.1 Eos # (Auto) 0.1 Baso # (Auto) 0.0 Abs Immat Gran (auto) 0.08 H Absolute Neuts (auto) 6.7 Absolute Nucleated RBC 0.000 Nucleated RBC % (auto) 0.0 Smear Tech's Comments VERIFIED PT INR APTT O2 Saturation ABG pH at Pt Temp ABG pH (Temp Correct) ABG pCO2 at Pt Temp ABG pCO2 (Temp Corrct ABG pO2 at Pt Temp ABG pO2 (Temp Correct ABG HCO3 ABG Base Excess (Actual) Sodium 141 Potassium 4.7 Chloride 109 H Carbon Dioxide 23 Anion Gap 14 BUN 39 H Creatinine 2.08 H Estim Creat Clear Calc 43.5 Estimated GFR 31 POC Glucose 126 H Random Glucose 118 H D Lactic Acid Calcium 8.0 L Total Bilirubin Direct Bilirubin AST ALT Alkaline Phosphatase Total Creatine Kinase 3857 H Troponin I High Sens B-Natriuretic Peptide Total Protein Albumin Urine Color Urine Appearance Urine pH Ur Specific [place] Urine Protein Urine Glucose (UA) Urine Ketones Urine Blood Urine Nitrite Ur Leukocyte Esterase Urine RBC Urine WBC Urine WBC Clumps Ur Squamous Epith Cells Amorphous Sediment Urine Bacteria Urine Mucus COVID-19 ([facility]) COVID-19 Clin Com 11/10/20 11/10/20 11/10/20 07:28 11:06 16:10 WBC RBC Hgb Hct MCV MCH MCHC RDW Plt Count MPV Immature Gran % (Auto) Neut % (Auto) Lymph % (Auto) [place] % (Auto) Eos % (Auto) Baso % (Auto) Lymph # (Auto) [place] # (Auto) Eos # (Auto) Baso # (Auto) Abs Immat Gran (auto) Absolute Neuts (auto) Absolute Nucleated RBC Nucleated RBC % (auto) Smear Tech's Comments PT INR APTT O2 Saturation ABG pH at Pt Temp ABG pH (Temp Correct) ABG pCO2 at Pt Temp ABG pCO2 (Temp Corrct ABG pO2 at Pt Temp ABG pO2 (Temp Correct ABG HCO3 ABG Base Excess (Actual) Sodium Potassium Chloride Carbon Dioxide Anion Gap BUN Creatinine Estim Creat Clear Calc Estimated GFR POC Glucose 139 H 173 H Random Glucose Lactic Acid Calcium Total Bilirubin Direct Bilirubin AST ALT Alkaline Phosphatase Total Creatine Kinase Troponin I High Sens 223.2 H* B-Natriuretic Peptide Total Protein Albumin Urine Color Urine Appearance Urine pH Ur Specific [place] Urine Protein Urine Glucose (UA) Urine Ketones Urine Blood Urine Nitrite Ur Leukocyte Esterase Urine RBC Urine WBC Urine WBC Clumps Ur Squamous Epith Cells Amorphous Sediment Urine Bacteria Urine Mucus COVID-19 ([facility]) COVID-19 Clin Com 11/10/20 11/11/20 11/11/20 19:46 05:47 05:47 WBC 6.9 RBC 4.33 L Hgb 13.7 L Hct 43.2 MCV 99.8 H MCH 31.6 MCHC 31.7 RDW 13.9 Plt Count 129 L MPV 11.5 Immature Gran % (Auto) Neut % (Auto) Lymph % (Auto) [place] % (Auto) Eos % (Auto) Baso % (Auto) Lymph # (Auto) [place] # (Auto) Eos # (Auto) Baso # (Auto) Abs Immat Gran (auto) Absolute Neuts (auto) Absolute Nucleated RBC 0.000 Nucleated RBC % (auto) 0.0 Smear Tech's Comments PT INR APTT O2 Saturation ABG pH at Pt Temp ABG pH (Temp Correct) ABG pCO2 at Pt Temp ABG pCO2 (Temp Corrct ABG pO2 at Pt Temp ABG pO2 (Temp Correct ABG HCO3 ABG Base Excess (Actual) Sodium 142 Potassium 4.5 Chloride 110 H Carbon Dioxide 21 L Anion Gap 16 BUN 32 H Creatinine 1.33 Estim Creat Clear Calc 68.1 Estimated GFR 53 POC Glucose 151 H Random Glucose 138 H Lactic Acid Calcium 8.7 D Total Bilirubin Direct Bilirubin AST ALT Alkaline Phosphatase Total Creatine Kinase Troponin I High Sens B-Natriuretic Peptide Total Protein Albumin Urine Color Urine Appearance Urine pH Ur Specific [place] Urine Protein Urine Glucose (UA) Urine Ketones Urine Blood Urine Nitrite Ur Leukocyte Esterase Urine RBC Urine WBC Urine WBC Clumps Ur Squamous Epith Cells Amorphous Sediment Urine Bacteria Urine Mucus COVID-19 ([facility]) COVID-19 [employer] Com 11/11/20 07:23 WBC RBC Hgb Hct MCV MCH MCHC RDW Plt Count MPV Immature Gran % (Auto) Neut % (Auto) Lymph % (Auto) [place] % (Auto) Eos % (Auto) Baso % (Auto) Lymph # (Auto) [place] # (Auto) Eos # (Auto) Baso # (Auto) Abs Immat Gran (auto) Absolute Neuts (auto) Absolute Nucleated RBC Nucleated RBC % (auto) Smear Tech's Comments PT INR APTT O2 Saturation ABG pH at Pt Temp ABG pH (Temp Correct) ABG pCO2 at Pt Temp ABG pCO2 (Temp Corrct ABG pO2 at Pt Temp ABG pO2 (Temp Correct ABG HCO3 ABG Base Excess (Actual) Sodium Potassium Chloride Carbon Dioxide Anion Gap BUN Creatinine Estim Creat Clear Calc Estimated GFR POC Glucose 149 H Random Glucose Lactic Acid Calcium Total Bilirubin Direct Bilirubin AST ALT Alkaline Phosphatase Total Creatine Kinase Troponin I High Sens B-Natriuretic Peptide Total Protein Albumin Urine Color Urine Appearance Urine pH Ur Specific [place] Urine Protein Urine Glucose (UA) Urine Ketones Urine Blood Urine Nitrite Ur Leukocyte Esterase Urine RBC Urine WBC Urine WBC Clumps Ur Squamous Epith Cells Amorphous Sediment Urine Bacteria Urine Mucus COVID-19 ([facility]) COVID-19 Clin Com Imaging Radiology Impressions: ITS Impressions Chest X-Ray 11/09/20 16:25 IMPRESSION: Interstitial prominence with right basilar atelectasis versus infiltrates and a probable trace right-sided pleural effusion, new when compared to the prior examination. Head CT 11/09/20 16:27 IMPRESSION: No acute intracranial hemorrhage or mass effect. Mental Status Exam Mental Status Exam Narrative: Well-nourished, obese male, with T at times during the encounter. Sitting up at side of bed, eating breakfast. Some intermittent confusion, but overall alert and oriented. Denies any type of depressive sx, does report some anxiety. Patient Appearance: Disheveled and Appropriate Patient Orientation: Person, Place, Time (reported day as Wednesday . ) and Situation Level of Consciousness: Awake and Alert (mostly alert, however displayed intermittent confusion when responding to questions. ) Patient Behavior: Appropriate, Cooperative, Anxious and Good Eye Contact Mood Description: Appropriate and Anxious (some slight anxiety reported. ) Affect Description: Appropriate, Blunted and Flat Patient Cognition Impaired: No Ability to Follow Directions: Excellent Speech Pattern: Difficulty Finding Words, Coherent and Long Pauses Memory Description: Remote Impaired (unable to state how long he has been prescr ibed medications. ) Hallucinations: None Delusions: Not Present Thought Process: Goal Oriented, Linear, Slowed Thinking and Confusion (intermittent confusion during encounter. ) Thought Content: positive for Intact, positive for Goal Oriented, positive for Linear, positive for Thought Blocking and positive for Logical Judgement: Fair Judgement and Insight: Patient was unable to state current medications, doses, length of time he has taken them, or when they are scheduled. Some of this may be due to altered mental status, which appears to be clearing. Medications Medications Current Medications Generic Name Dose Route Start Last Admin Trade Name Freq PRN Reason Stop Dose Admin Acetaminophen 650 mg 11/09/20 23:51 11/11/20 06:39 Acetaminophen 325 Mg Tablet PO 650 mg Q6H PRN Administration Pain, Mild (Pain Scale 1-3) Albuterol Sulfate 2 puff 11/10/20 12:00 11/11/20 08:02 Albuterol Sulfate 90 Mcg 8 Gm Inhaler INHALE 2 puff RQ4H AISHWARYA Administration Atorvastatin Calcium 10 mg 11/10/20 09:00 11/11/20 08:12 Atorvastatin Calcium 10 Mg Tablet PO 10 mg DAILY AISHWARYA Administration Carisoprodol 700 mg 11/10/20 09:00 11/11/20 08:12 Carisoprodol 350 Mg Tablet PO 700 mg TID AISHWARYA Administration Docusate Sodium 100 mg 11/09/20 23:51 Docusate Sodium 100 Mg Capsule PO DAILY PRN Constipation Heparin Sodium (Porcine) 5,000 unit 11/09/20 23:51 11/10/20 23:35 Heparin Sodium,Porcine 5,000 Unit/Ml Vial SUBCUT 5,000 unit Q12H AISHWARYA Administration Lactated Ringer's 1,000 mls @ 100 mls/hr 11/09/20 23:51 11/11/20 06:37 Lr IVCONT 100 mls/hr .Q10H AISHWARYA Administration Ceftriaxone Sodium 1 gm/ 50 mls @ 100 mls/hr 11/10/20 07:00 11/11/20 07:25 Sodium Chloride IV Infused Q24H AISHWARYA Infusion Insulin Human Lispro 0 unit 11/10/20 07:30 11/11/20 07:26 Insulin Lispro 100 Unit/Ml 3 Ml Vial SUBCUT Not Given QIDACHS [facility] Protocol Losartan Potassium 50 mg 11/10/20 09:00 11/11/20 08:14 Losartan Potassium 50 Mg Tablet PO Not Given DAILY [facility] Protocol Omeprazole 20 mg 11/10/20 06:30 11/11/20 06:37 Omeprazole 20 Mg Capsule. PO 20 mg DAILY@0630 [facility] Administration Ondansetron HCl 4 mg 11/09/20 23:51 Ondansetron Hcl 4 Mg/2 Ml Vial IVPUSH Q8H PRN Nausea and Vomiting Prednisone 5 mg 11/09/20 23:51 Prednisone 5 Mg Tablet PO ONCE [facility] Sodium Chloride 3 ml 11/10/20 00:00 11/11/20 08:13 0.9 % Sodium Chloride Flush 3 Ml Syringe IVFLUSH 3 ml QSHIFT [facility] Administration Allergies Allergies Allergy/AdvReac Type Severity Reaction Status Date / Time codeine [CODEINE] Allergy Intermediate RASH Verified 11/09/20 17:07 morphine [MORPHINE] Allergy Mild NAUSEA Verified 11/09/20 17:07 ibuprofen [From MOTRIN] Allergy Unknown NAUSEA Verified 11/09/20 17:07 Assessment & Plan Assessment & Plan (1) Altered mental status: Qualifiers: Altered mental status type: stupor Qualified Code(s): R40.1 - Stupor Status: Acute Code(s): R41.82 - Altered mental status, unspecified Recommendations: 1. Please consider restarting lorazepam slowly, would recommend 0.5 mg t.i.d. for 1-2 days, and then resume 1 mg t.i.d. 2. Regarding OxyContin, would leave to your discretion, as patient does not appear to be in severe pain at this time. RR noted to be 20 this am. (please note, meds should be resumed in some way, to avoid opioid withdrawal symptoms). 3. Recommend [facility] a referral or family education regarding medication fills. Patient reports his and daughter fill his medications and leave several days worth at a time in his drawer. Would recommend daily medication fills, without access to other meds, so as to prevent accidental overdose going further. 4. Patient does not appear to be a danger in any way to himself or others. He also appears to be in process of clearing regarding AMS. 5. Any further changes to medication regimen can be addressed when patient follows-up with his outpatient provider. I have shared these recommendations with Dr. Shobha Tejeda via secure messaging, and have left a message for case work aide regarding the concern for patient/family medication education needs. Thank you for this consultation. Greater than 50% of the session was spent on counseling and/or coordination of care Patient educated on: medication risk/benefits Informed Consent: further education needed (Assistance recommended regarding medication management in home.)
--- NOTE | 2020-11-11 10:18 | P.PNCA_ITS ---
Subjective Subjective Date of Service: 11/11/20 <SALLY Aiken - Last Filed: 11/11/20 11:33> 11/11/20 <Ever Mcgill MD - Last Filed: 11/11/20 11:53> Principal diagnosis: hypoxia, elevated Troponin <SALLY Aiken - Last Filed: 11/11/20 11:33> Interval history: Cardiology follow up for Troponin elevation. Seen at 0815. Today he reports not sleeping well due to left lateral thorax discomfort from fall he sustained at home. Wearing O2 4 liters with sat 94%. Breathing comfortable at present. No chest pains, palpitation, dizziness. <SALLY Aiken - Last Filed: 11/11/20 11:33> Review of Systems Review of Systems as above <SALLY Aiken - Last Filed: 11/11/20 11:33> Yes all other systems are reviewed and are negative <SALLY Aiken - Last Filed: 11/11/20 11:33> Physical Exam Vital Signs: Last Vital Signs Temp 98.6 F 11/11/20 07:21 Pulse 97 11/11/20 08:03 Resp 20 11/11/20 07:21 BP 167/87 H 11/11/20 08:14 Pulse Ox 94 11/11/20 07:21 Body Mass Index 42.3 <SALLY Aiken - Last Filed: 11/11/20 11:33> Const General: cooperative, no acute distress, alert and awake <SALLY Aiken - Last Filed: 11/11/20 11:33> Orientation/consciousness: patient oriented x3 <SALLY Aiken - Last Filed: 11/11/20 11:33> Neck Neck: Yes normal visual inspection and Yes no JVD <SALLY Aiken Last Filed: 11/11/20 11:33> Resp Effort & Inspection: normal respiratory effort, able to speak in complete sentences and not labored <SALLY Aiken - Last Filed: 11/11/20 11:33> Auscultation: clear to auscultation bilaterally, no crackles, no rales, no rhonchi and no wheezes <SALLY Aiken - Last Filed: 11/11/20 11:33> Cardio Palpation: normal PMI <SALLY Aiken - Last Filed: 11/11/20 11:33> Rate: regular rate <SALLY Aiken - Last Filed: 11/11/20 11:33> Rhythm: regular rhythm <SALLY Aiken Last Filed: 11/11/20 11:33> Heart sounds: S1 normal heart sound present and S2 normal heart sound present <SALLY Aiken - Last Filed: 11/11/20 11:33> Peripheral pulses: Peripheral pulses 2+ throughout <SALLY Aiken - Last Filed: 11/11/20 11:33> GI Inspection: Yes normal to inspection <SALLY Aiken - Last Filed: 11/11/20 11:33> Neuro General: patient oriented x3 <SALLY Aiken Last Filed: 11/11/20 11:33> Extrem General: Yes normal to inspection and No edema <IVIS Aiken - Last Filed: 11/11/20 11:33> Results Labs and Meds Result diagrams: : 11/11/20 05:47 11/11/20 05:47 <SALLY Aiken - Last Filed: 11/11/20 11:33> Lab results: Laboratory Results - last 24 hr 11/10/20 11/10/20 11/10/20 04:46 11:06 16:10 WBC RBC Hgb Hct MCV MCH MCHC RDW Plt Count MPV Absolute Nucleated RBC Nucleated RBC % (auto) Sodium Potassium Chloride Carbon Dioxide Anion Gap BUN Creatinine Estim Creat Clear Calc Estimated GFR POC Glucose 139 H 173 H Random Glucose Calcium Total Creatine Kinase 3857 H 11/10/20 11/11/20 11/11/20 19:46 05:47 05:47 WBC 6.9 RBC 4.33 L Hgb 13.7 L Hct 43.2 MCV 99.8 H MCH 31.6 MCHC 31.7 RDW 13.9 Plt Count 129 L MPV 11.5 Absolute Nucleated RBC 0.000 Nucleated RBC % (auto) 0.0 Sodium 142 Potassium 4.5 Chloride 110 H Carbon Dioxide 21 L Anion Gap 16 BUN 32 H Creatinine 1.33 Estim Creat Clear Calc 68.1 Estimated GFR 53 POC Glucose 151 H Random Glucose 138 H Calcium 8.7 D Total Creatine Kinase 11/11/20 07:23 WBC RBC Hgb Hct MCV MCH MCHC RDW Plt Count MPV Absolute Nucleated RBC Nucleated RBC % (auto) Sodium Potassium Chloride Carbon Dioxide Anion Gap BUN Creatinine Estim Creat Clear Calc Estimated GFR POC Glucose 149 H Random Glucose Calcium Total Creatine Kinase <SALLY Aiken - Last Filed: 11/11/20 11:33> Progress Note: A&P Assessment and plan (1) Elevated troponin: Status: Acute <SALLY Aiken - Last Filed: 11/11/20 11:33> Assessment and Plan: Admit with hypoxia. Troponin elevated with rise up to 316. No report of CP. EKG with nonspecific changes. No known cardiac hx. Has KAREN and wears O2 at home as needed. Type 2, secondary [place] most likely related to hypoxia. Anticoagulation not indicated. Echo pending. If normal, then will plan for outpt ischemic eval. Continue statin. Recommend aspirin 81mg daily if no contraindication. Still on O2 supplement, 4 Liters with sat 94%. He tells me does not wear O2 at all times at home. Recommend further eval for his acute and ongoing hypoxia. Recommend Pulmonology eval. Hospitalist notified. <SALLY Aiken - Last Filed: 11/11/20 11:33> (2) Type 2 [place] (myocardial infarction): Status: Acute <SALLY Aiken - Last Filed: 11/11/20 11:33> Assessment and Plan: Patient developed elevated troponin with rise and fall, consider myocardial injury suspected to be due to hypoxemia. Cause of hypoxemia is not unclear could be related to underlying COPD. Should consider pulmonary consultation as an outpatient. Looked comfortable when I saw him with no clear wheezing or rales. May have underlying severe sleep apnea and Pickwickian syndrome. Oxygen evaluation. Outpatient ischemic workup will be pursued. Case was discussed with patient and on chart here. Patient seen and examined. <Ever Mcgill MD - Last Filed: 11/11/20 11:53> (3) Hypoxia: Status: Acute <Mary Jane Engelier, MAHNAZ-C - Last Filed: 11/11/20 11:33> Fall Risk Details Current Medications: Current Medications Generic Name Dose Route Start Last Admin Trade Name Freq PRN Reason Stop Dose Admin Acetaminophen 650 mg 11/09/20 23:51 11/11/20 06:39 Acetaminophen 325 Mg Tablet PO 650 mg Q6H PRN Administration Pain, Mild (Pain Scale 1-3) Albuterol Sulfate 2 puff 11/10/20 12:00 11/11/20 08:02 Albuterol Sulfate 90 Mcg 8 Gm Inhaler INHALE 2 puff RQ4H AISHWARYA Administration Atorvastatin Calcium 10 mg 11/10/20 09:00 11/11/20 08:12 Atorvastatin Calcium 10 Mg Tablet PO 10 mg DAILY AISHWARYA Administration Carisoprodol 700 mg 11/10/20 09:00 11/11/20 08:12 Carisoprodol 350 Mg Tablet PO 700 mg TID AISHWARYA Administration Docusate Sodium 100 mg 11/09/20 23:51 Docusate Sodium 100 Mg Capsule PO DAILY PRN Constipation Heparin Sodium (Porcine) 5,000 unit 11/09/20 23:51 11/10/20 23:35 Heparin Sodium,Porcine 5,000 Unit/Ml Vial SUBCUT 5,000 unit Q12H AISHWARYA Administration Lactated Ringer's 1,000 mls @ 100 mls/hr 11/09/20 23:51 11/11/20 06:37 Lr IVCONT 100 mls/hr .Q10H AISHWARYA Administration Ceftriaxone Sodium 1 gm/ 50 mls @ 100 mls/hr 11/10/20 07:00 11/11/20 07:25 Sodium Chloride IV Infused Q24H AISHWARYA Infusion Insulin Human Lispro 0 unit 11/10/20 07:30 11/11/20 07:26 Insulin Lispro 100 Unit/Ml 3 Ml Vial SUBCUT Not Given QIDACHS [facility] Protocol Losartan Potassium 50 mg 11/10/20 09:00 11/11/20 08:14 Losartan Potassium 50 Mg Tablet PO Not Given DAILY AISHWARYA Protocol Omeprazole 20 mg 11/10/20 06:30 11/11/20 06:37 Omeprazole 20 Mg Capsule.Dr PO 20 mg DAILY@0630 AISHWARYA Administration Ondansetron HCl 4 mg 11/09/20 23:51 Ondansetron Hcl 4 Mg/2 Ml Vial IVPUSH Q8H PRN Nausea and Vomiting Prednisone 5 mg 11/09/20 23:51 Prednisone 5 Mg Tablet PO ONCE AISHWARYA Sodium Chloride 3 ml 11/10/20 00:00 11/11/20 08:13 0.9 % Sodium Chloride Flush 3 Ml Syringe IVFLUSH 3 ml QSHIFT AISHWARYA Administration <SALLY Aiken - Last Filed: 11/11/20 11:33> Time Spent With Patient Time: Total time spent is greater than 50% in coordination of care (as documented) at patient's floor/unit and/or counseling patient: 20 <SALLY Aiken - Last Filed: 11/11/20 11:33> Time with patient: 15 - 24 minutes <SALLY Aiken - Last Filed: 11/11/20 11:33> Progress Note: Quality Stroke Does the patient have a stroke diagnosis?: No <SALLY Aiken - Last Filed: 11/11/20 11:33> Procedures Date of Service Date of Service: 11/11/20 <SALLY Aiken - Last Filed: 11/11/20 11:33>
[2020-11-11] MEDS: Insulin Lispro 100 UNIT/ML 3 ML VIAL SUBCUT ×2 (11:02→20:22)
[2020-11-11] MEDS: Heparin Sodium,Porcine 5,000 UNIT/ML VIAL 5000 UNIT SUBCUT (11:03)
[2020-11-11 11:07] LABS: Glucose, Whole Blood 172 mg/dL (60-115)
[2020-11-11] MEDS: Aspirin Enteric Coated 81 MG TABLET.DR PO (13:39)
--- NOTE | 2020-11-11 13:52 | MHC.CM.PN ---
Per ROUNDS discussion, Patient is not yet medically cleared for dc (increasing hypoxia, IV Ceftriaxone).Home with new [facility] is now the plan and CM will follow for possible need to adjust the dc plan.
[2020-11-11] MEDS: LORazepam 0.5 MG TABLET PO (15:29)
[2020-11-11 16:08] LABS: Glucose, Whole Blood 135 mg/dL (60-115)
--- NOTE | 2020-11-11 17:20 | P.PNIM_ITS ---
Subjective Subjective Date of Service: 11/11/20 Physical Exam Vital Signs: Vital Signs: Last Vital Signs Temp 98.1 F 11/11/20 15:08 Pulse 98 11/11/20 15:08 Resp 20 11/11/20 15:08 BP 164/90 H 11/11/20 15:08 Pulse Ox 93 11/11/20 15:08 Body Mass Index 42.3 Physical exam : Heent: eyes anicteric, no discharge Cvs: rrr, [id number] , no murmur res:air entry seems fair ,luna or wheezing abd: no rebound or guarding ,nt, bs present. ext pulses present , no cyanosis neuro: axo3 , nonfocal Objective Data Current Medications Generic Name Dose Route Start Last Admin Trade Name Freq PRN Reason Stop Dose Admin Acetaminophen 650 mg 11/09/20 23:51 11/11/20 13:39 Acetaminophen 325 Mg Tablet PO 650 mg Q6H PRN Administration Pain, Mild (Pain Scale 1-3) Albuterol Sulfate 2 puff 11/10/20 12:00 11/11/20 14:47 Albuterol Sulfate 90 Mcg 8 Gm Inhaler INHALE Not Given RQ4H [facility] Aspirin 81 mg 11/11/20 13:15 11/11/20 13:39 Aspirin Enteric Coated 81 Mg Tablet.Dr PO 81 mg DAILY AISHWARYA Administration Atorvastatin Calcium 10 mg 11/10/20 09:00 11/11/20 08:12 Atorvastatin Calcium 10 Mg Tablet PO 10 mg DAILY AISHWARYA Administration Carisoprodol 700 mg 11/10/20 09:00 11/11/20 15:29 Carisoprodol 350 Mg Tablet PO 700 mg TID AISHWARYA Administration Docusate Sodium 100 mg 11/09/20 23:51 Docusate Sodium 100 Mg Capsule PO DAILY PRN Constipation Heparin Sodium (Porcine) 5,000 unit 11/09/20 23:51 11/11/20 11:03 Heparin Sodium,Porcine 5,000 Unit/Ml Vial SUBCUT 5,000 unit Q12H AISHWARYA Administration Lactated Ringer's 1,000 mls @ 100 mls/hr 11/09/20 23:51 11/11/20 15:32 Lr IVCONT Not Given .Q10H AISHWARYA Ceftriaxone Sodium 1 gm/ 50 mls @ 100 mls/hr 11/10/20 07:00 11/11/20 07:25 Sodium Chloride IV Infused Q24H AISHWARYA Infusion Insulin Human Lispro 0 unit 11/10/20 07:30 11/11/20 16:11 Insulin Lispro 100 Unit/Ml 3 Ml Vial SUBCUT Not Given QIDACHS [facility] Protocol Lorazepam 0.5 mg 11/11/20 15:09 11/11/20 15:29 Lorazepam 0.5 Mg Tablet PO 0.5 mg Q12H PRN Administration Anxiety Losartan Potassium 50 mg 11/10/20 09:00 11/11/20 08:14 Losartan Potassium 50 Mg Tablet PO Not Given DAILY [facility] Protocol Omeprazole 20 mg 11/10/20 06:30 11/11/20 06:37 Omeprazole 20 Mg Capsule.Dr PO 20 mg DAILY@0630 [facility] Administration Ondansetron HCl 4 mg 11/09/20 23:51 Ondansetron Hcl 4 Mg/2 Ml Vial IVPUSH Q8H PRN Nausea and Vomiting Oxycodone HCl 10 mg 11/11/20 15:09 Oxycodone Hcl Immed Release 5 Mg Tablet PO Q12H PRN Pain, Mild (Pain Scale 1-3) Prednisone 5 mg 11/09/20 23:51 Prednisone 5 Mg Tablet PO ONCE [facility] Sodium Chloride 3 ml 11/10/20 00:00 11/11/20 15:32 0.9 % Sodium Chloride Flush 3 Ml Syringe IVFLUSH Not Given QSHIFT [facility] Labs CBC & Chem 7: 11/11/20 05:47 11/11/20 05:47 Labs: Laboratory Results - last 24 hr 11/10/20 11/11/20 11/11/20 19:46 05:47 05:47 WBC 6.9 RBC 4.33 L Hgb 13.7 L Hct 43.2 MCV 99.8 H MCH 31.6 MCHC 31.7 RDW 13.9 Plt Count 129 L MPV 11.5 Absolute Nucleated RBC 0.000 Nucleated RBC % (auto) 0.0 Sodium 142 Potassium 4.5 Chloride 110 H Carbon Dioxide 21 L Anion Gap 16 BUN 32 H Creatinine 1.33 Estim Creat Clear Calc 68.1 Estimated GFR 53 POC Glucose 151 H Random Glucose 138 H Calcium 8.7 D 11/11/20 11/11/20 11/11/20 07:23 10:57 16:02 WBC RBC Hgb Hct MCV MCH MCHC RDW Plt Count MPV Absolute Nucleated RBC Nucleated RBC % (auto) Sodium Potassium Chloride Carbon Dioxide Anion Gap BUN Creatinine Estim Creat Clear Calc Estimated GFR POC Glucose 149 H 172 H 135 H Random Glucose Calcium Microbiology Microbiology Results: Microbiology 11/09/20 17:29 Blood Culture - Preliminary Blood - Venous Prelim: GPC Gram Stain only 11/10/20 02:32 Urine Culture - Final Urine clean catch - Clean Catch Midstream No growth. 11/09/20 16:49 Blood Culture - Preliminary Blood - Venous No growth after 24 hours. Quality Stroke Does the patient have a stroke diagnosis?: No VTE Prior VTE?: No VTE Risk Level:: Medical - moderate - high VTE Device Contraindication: Treatment Not Indicated VTE Drug Contraindication: N/A - Med Ordered Assessment and Plan (1) Hypoxia: Status: Acute (2) Elevated troponin: Status: Acute (3) UTI (urinary tract infection): Status: Acute Assessment and Plan: day-3 75-year-old male with past medical history of chronic back pain, diabetes who pr esents to the hospital with encephalopathy 1. toxic /metabolic encephalopathy - possibly secondary to polypharmacy as patient is on sedatives including his narcotic medications for pain as well as Ativan worsened by acute infection hold oxycodone as well as Ativan for his pain and anxiety, he is also on muscle relaxant which is also sedative. - he has acute UTI Will continue IV antibiotic for UTI, hold off on the sedative medications, care team consult for anxiety and medication overuse. 2. UTI - patient denies any urinary symptoms - has positive UA on IV ceftriaxone day3 - follow cultures urine and blood pendig 3. MARICHUY: probable has ckd stage3: cr fluctuating between 1.6-1.8 range since 2019 - most likely secondary to poor oral intake on IV fluids, creatinine improving - follow BMP 5. diabetes: Controlled, Fingersticks are running 140s - hold glipizide - start low-dose sliding scale insulin - diabetic diet 6. hypertension - stable hold losartan due to marichuy on ckd 7.: Sleep apnea: Currently could not able to get CPAP out patiently, , working with his primary doctor Discussed with patient family patient already had home oxygen set up at home finely. Discussed with Respiratory who confirmed withfamily. 8: Elevated troponin: Probably related to some secondary to hypoxia, Continue aspirin Added echo Cardio following
[2020-11-11 19:52] LABS: Glucose, Whole Blood 213 mg/dL (60-115)
[2020-11-12] MEDS: Heparin Sodium,Porcine 5,000 UNIT/ML VIAL 5000 UNIT SUBCUT ×2 (00:46→12:42)
[2020-11-12] MEDS: 0.9 % Sodium Chloride Flush 3 ML SYRINGE IVFLUSH ×2 (00:47→08:50)
[2020-11-12] MEDS: Acetaminophen 325 MG TABLET 650 MG PO ×2 (01:02→08:54)
[2020-11-12 03:52] VITALS: BP 182/79; PULSE 87; RESP 14; TEMP 37.4; O2SAT 93
[2020-11-12] MEDS: oxyCODONE HCl Immed Release 5 MG TABLET 10 MG PO (04:38)
[2020-11-12] MEDS: cefTRIAXone sodium 1 GM in 0.9 % Sodium Chloride 50 ML IV (05:56)
[2020-11-12] MEDS: Omeprazole 20 MG CAPSULE.DR PO (05:56)
[2020-11-12 07:13] LABS: Glucose, Whole Blood 137 mg/dL (60-115)
[2020-11-12 07:31] VITALS: BP 160/86; PULSE 91; RESP 20; TEMP 37.4; O2SAT 95
[2020-11-12] MEDS: Albuterol Sulfate 90 MCG 8 GM INHALER 2 PUFF INHALE (08:25)
[2020-11-12] MEDS: Aspirin Enteric Coated 81 MG TABLET.DR PO (08:48)
[2020-11-12] MEDS: Atorvastatin Calcium 10 MG TABLET PO (08:48)
[2020-11-12] MEDS: carisoprodoL 350 MG TABLET 700 MG PO ×2 (08:48→14:48)
[2020-11-12 08:49] VITALS: BP 185/79; PULSE 109
[2020-11-12] MEDS: amLODIPine Besylate 5 MG TABLET PO (08:49)
--- NOTE | 2020-11-12 09:30 | CA_ITS ---
Transthoracic Echocardiogram Patient (Last, First, Middle): Zane Delgado J Gender: Male Date of : 1945 Age: 75 Procedure Date: 11/12/2020 Procedure Type: Transthoracic Echocardiogram Location: [facility] [place] Height: 177.8 cm Weight: 133.81 kg BSA: 2.46 m2 Heart Rate: bpm BP: 182 / 79 mmHg [employer] Mechan[employer] Helper: THI Referring MD: Shobha Tejeda MD Distributing Clerk: Ever Mcgill MD Symptoms: elevated troponins Study Quality: Technically Difficult ECG Rhythm: Sinus Conclusions: - 1. Technically difficult study despite use of contrast 2. Normal LV systolic function with LVEF of 55-60% with moderate LVH with impaired relaxation filling pattern 3. Cardiac valves not well visualized with normal cardiac valvular Doppler with severe mitral calcification noted Findings Procedure Information Contrast agent, definity, is being given per protocol without apparent complications. Left Ventricle Normal left ventricular size and systolic function. There is moderately increased left ventricular wall thickness. The visually estimated ejection fraction is between 55-60%. Spectral Doppler is indicative of an impaired relaxation filling pattern. E/E prime ratio is between 8 and 15 consistent with indeterminate filling pressures. Right Ventricle The right ventricle was not well visualized. Atria The left atrium is normal in size. There is lipomatous hypertrophy of the interatrial septum. Interatrial shunt cannot be excluded. The right atrium was not well visualized. Aortic Valve The aortic valve was not well visualized. There is no aortic valve stenosis. There is no aortic valve regurgitation. Mitral Valve There is mild anterior and severe posterior mitral leaflet thickening. There is severe mitral annular calcification. There is trace mitral valve regurgitation. There is no mitral valve stenosis. Pulmonic Valve The pulmonic valve was not well visualized. Tricuspid Valve The tricuspid valve was not well visualized. Tricuspid regurgitation envelope is inadequate for calculation of right ventricular systolic pressure. Great Vessels All visible segments of the aorta are normal in size. The pulmonary artery was not well visualized. Venous The inferior vena cava was not well visualized. Pericardium/Pleural The pericardium was not well visualized. Prior Study Comparison No prior study available for comparison. Measurements 2D Linear Measurements IVSd: 1.36 0.6-0.9/0.6-1.0 cm LVIDd: 4.69 3.9-5.3/4.2-5.9 cm LVIDd Index: 1.91 2.4-3.2/2.2-3.1 cm/m2 LVIDs: 3.09 2.0-3.6 cm LVPWd: 1.47 0.7-1.1 cm LA Diam: 3.50 2.7-3.8/3.0-4.0 cm LAIDs Index: 1.42 1.5-2.3 cm/m2 LV Mass: 334.98 67-162/88-224 g LV Mass Index: 136.17 43-95/49-115 g/m2 LVOT Diam: 2.40 3.0+(-)1.3 cm 2D Systolic Function EF 4C: 53.40 >55% EF 2C: 52.70 >55% Mitral Valve MV Pk E: 0.55 MV PK A: 1.20 MV Decel Time: 127.00 E/A: 0.50 E'Lateral: 6.09 E'Medial: 3.70 E/E' Med: 14.90 E/E' Lat: 9.00 PHT: 37.00 MVA PHT: 5.95 Decel Carter: 4.32 Aortic Valve AoV Pk Neel: 1.22 AoV Pk Grad: 6.00 LVOT LVOT Pk Neel: 0.77 LVOT Mn Neel: 0.55 LVOT VTI: 0.17 LVOT Pk Grad: 2.00 LVOT Mn Grad: 1.00 LVOT Diam: 2.40 LVOT Area: 4.52 Diastolic Function MV Pk E: 0.55 MV Pk A: 1.20 E/A: 0.50 E'Medial: 3.70 E/E' Med: 14.90 E' Laterial: 6.09 E/E' Lat: 9.00 Right Ventricle TAPSE (mm): 2.09 Tricuspid Valve TR Pk Neel: 2.84 TR Pk Grad: 32.00 Great Vessels Aorta Ao Asc: 3.60 2.1-3.4 cm Updated in Other Vendor System with Status of Final Ever Mcgill MD electronically signed on 11/12/2020 2:12:06 PM with status of Final
[2020-11-12] MEDS: LORazepam 0.5 MG TABLET PO (10:15)
[2020-11-12 12:00] VITALS: BP 166/87; PULSE 94; RESP 20; TEMP 36.9; O2SAT 93
[2020-11-12 12:49] LABS: Glucose, Whole Blood 128 mg/dL (60-115)
--- NOTE | 2020-11-12 15:02 | MHC.CM.PN ---
Per MD, Patient will be medically cleared for dc to home today, with services.A referral was made to [facility], who has been notified of today's dc. Last IMM addressed on 11/10/20.
[2020-11-12 15:06] VITALS: BP 162/80; PULSE 95; RESP 20; TEMP 36.7; O2SAT 93
[2020-11-12 16:02] LABS: Glucose, Whole Blood 151 mg/dL (60-115)
--- NOTE | 2020-11-12 16:09 | W.MHC.F2F ---
Service Date Service Date: 11/12/20 Encounter Date of encounter: 11/12/20 Encounter: maximino on ckd, toxic metabolic encephalopathy Reasons for Services Signs and symptoms assessed: Toxic metabolic encephalopathies related to medication use. Homebound: Leaving the home is medically contraindicated at this time without the asist of a device and/or another person due th the listed conditions above and below. Homebound supporting statement: Patient needs medication management as well as help going to the appointments. Certification: Based on the above findings, I certify that this patient is confined to the home and needs intermittent mcfp care, physical therapy and/or speech therapy, or continues to need occupational therapy. The patient is under my care, and I have initiated the establishment of the plan of care. The patient will be followed by a physician who will periodically review the plan of care.
--- NOTE | 2020-11-12 16:11 | P.DS_ITS ---
DS: Providers Provider Date of Service: 11/12/20 Date of admission: 11/09/20 23:08 Primary care physician: Mj Bonilla MD Consults: 11/10/20 09:12 Consult to Cardiology Routine Consulting Provider: Edison Graham Reason for consultation: elevated Troponin Has provider been notified: No 11/10/20 11:29 Consult to Care Team Routine Comment: Reason for consultation: anxiety/psych medication overdose 11/11/20 07:29 Consult to Psychiatry Routine Consulting Provider: Jordon Garza Reason for consultation: encephalopathy-probably related to overuse of psych medication. Has provider been notified: No DS: Diagnosis Discharge Diagnosis (1) Hypoxia: Status: Acute (2) Elevated troponin: Status: Acute (3) UTI (urinary tract infection): Status: Acute DS: Medications Discharge Medications Home Medications: Home Medications Medication Instructions Recorded Confirmed albuterol sulfate [Ventolin HFA] 2 puff INHALATION Q3-4H 11/09/20 11/09/20 allopurinol 2 tab PO DAILY 11/09/20 11/09/20 carisoprodol 2 tab PO TID 11/09/20 11/09/20 glipizide 1 tab PO BID 11/09/20 11/09/20 lorazepam 1 tab PO TID 11/09/20 11/09/20 losartan 1 tab PO DAILY 11/09/20 11/09/20 omeprazole 1 cap PO DAILY 11/09/20 11/09/20 oxycodone [OxyContin] 1 tab PO BID 11/09/20 11/09/20 oxycodone [OxyContin] 1 tab PO QPM 11/09/20 11/09/20 prednisone 1 tab PO ONCE 11/09/20 11/09/20 simvastatin 1 tab PO DAILY 11/09/20 11/09/20 DS: Summary Hospital Course Hospital Course: 75-year-old male with past medical history of CVA, lung nodules due to [place] sleep apnea on oxygen p.r.n. and chronic back pain on opioids as well as Ativan per family who presents to the hospital after his found him on the floor. It appears that patient had fallen out of bed and unclear if she lost consciousness but when his found him he was very lethargic and hard to arouse. His daughter arrived to the home shortly after and found him to be satting 69%. With a blood pressure of 90 3.5. Patient's daughter placed him on 2 L of oxygen with improvement of his oxygen to 93% which is around his baseline, but patient remained lethargic and had very minimal p.o. intake throughout the day. Patient's daughter reports that she left her parent's house at noontime, called her mother and found around 4:00 a.m. the patient was turning blue. His checked his oxygen on found to be 49% on 2 L of oxygen. Therefore decided to call EMS to bring him to the hospital. Patient is now more alert, he is a little more responsive, he is oriented to self and place. He does not remember what happened, reports that he might have lost consciousness. His daughter and his report that he may have taken extra dose of Ativan and pain medication although they are not sure. Patient himself is also not sure. He denies any weakness. He has chronic weakness of the right lower extremity with no changes. He denies any numbness or tingling, no change in vision or headache, no chest pain, no shortness of breath, no abdominal pain nausea or vomiting, he had 1 loss of bowel control in bladder control in the morning while at home. With no recurrence. Patient hemodynamically stable with a temp of 97.8?, heart rate of 116, respiratory rate of 18, blood pressure of 106/67 satting 97% on non-rebreather, currently on 3 L satting 90% Labs on arrival significant for WBC count of 10.6, hemoglobin of 14.7, pH of 7.3, pCO2 of 32, PO2 of 112, BUN of 40, creatinine of 2.8 with a baseline around 1.32, total bili of 2.1, direct bili of 1.6, alk-phos of 159, troponin of 60.4 which increased to 236. UA positive for leukocyte Estrace, and WBC. Hospital course : Patient admitted to the hospital due to toxic mass metabolic encephalopathy related to excessive sedative medication use including Ativan/opioids. Also found to have MARICHUY: Patient was hydrated as well as his sedative medications were on hold subsequently patient mental status improved significantly and patient seen by psych recommended to start slowly Ativan and we also cut down opioid dosing. Recommended to the patient to slowly cut down Ativan and OxyContin out patiently more if possible patient is to follow-up with his psych provider for that. MARICHUY: Improved with hydration. Asymptomatic pyuria: Patient denies any urinary symptoms and urine culture is negative. Afebrile. Will defer antibiotics. If with new symptoms patient need follow-up with PCP or can come to ED. Hypertension/CKD: Pain after hydration patient the a creatinine come to 1.3 range but patient has baseline CKD disease, will hold losartan for 2 days, check renal function and electrolytes with PCP in next few days and patient can go back on losartan as per PCP if renal function is at baseline., in addition for now we will came amlodipine limited supply for 1 week until patient is off losartan. Please discontinue amlodipine once losartan is started. elevated tropnins:Patient developed elevated troponin with rise and fall, consider myocardial injury suspected to be due to hypoxemia. Cause of hypoxemia is not unclear could be related to underlying selin,also sedative medications. Should consider pulmonary consultation as an outpatient. Looked comfortable when I saw him with no clear wheezing or rales. As per the patient family patient already has arranged home Oxygen evaluation and CPAP. Outpatient ischemic workup will be pursued. Patient seen by Cardiology-echo is fine, small dose of aspirin added, Cardiology will arrange their own appointment. Above management discussed with the patient , his and daughter in detail length they understand and in agreement with the above plan, time spent 50 minutes and 50% time spent on counseling. Significant findings: As above. Procedures performed: None. Treatment and response: As above. Complications: None. Time Spent with Patient Time attestation: Total time spent providing and/or coordinating discharge services: Discharge coordination time: Greater than 30 minutes Quality: Stroke Does the patient have a stroke diagnosis?: No Physical Exam Vital Signs: Vital Signs: Last Vital Signs Temp 98.1 F 11/12/20 15:06 Pulse 95 11/12/20 15:06 Resp 20 11/12/20 15:06 BP 162/80 H 11/12/20 15:06 Pulse Ox 93 11/12/20 15:06 Body Mass Index 42.3 Physical exam: Heent: eyes anicteric, no discharge Cvs: rrr, [id number] , no murmur res:air entry seems fair ,luna or wheezing abd: no rebound or guarding ,nt, bs present. ext pulses present , no cyanosis neuro: axo3 , nonfocal DS: Data Data Completed and Pending Labs on day of discharge: Laboratory Results - last 24 hr 11/11/20 11/12/20 11/12/20 19:46 07:10 12:41 POC Glucose 213 H 137 H 128 H 11/12/20 15:58 POC Glucose 151 H Preliminary micro results at discharge 11/09/20 16:49 Blood Culture - Preliminary Blood - Venous No growth after 48 hours. Discharge Plan Discharge Patient Disposition: Home Health Service Discharge Diagnosis: Toxic metabolic encephalopathy, sleep apnea Referrals: K[facility] ROMAN [Outside] - 1 Week Edison Graham MD [Physician] - 1 Week (Cardiology may arrange their own appointment.) Mj Bonilla MD [Primary Care Provider] - 1 Week Discharge Medications: New amlodipine 5 mg tablet 5 mg PO DAILY Qty: 7 RF: 0 aspirin 81 mg Tablet,Delayed Release (Dr/Ec) 81 mg PO DAILY Qty: 30 RF: 0 Continued carisoprodol 350 mg tablet 2 tab PO TID RF: 0 prednisone 5 mg tablet 1 tab PO ONCE RF: 0 allopurinol 100 mg tablet 2 tab PO DAILY RF: 0 glipizide 2.5 mg tablet extended release 24hr 1 tab PO BID RF: 0 simvastatin 20 mg tablet 1 tab PO DAILY RF: 0 omeprazole 20 mg capsule,delayed release(DR/EC) 1 cap PO DAILY RF: 0 lorazepam 1 mg tablet 1 tab PO TID RF: 0 albuterol sulfate [Ventolin HFA] 90 mcg/actuation HFA aerosol inhaler 2 puff inhalation Q3-4H RF: 0 oxycodone [OxyContin] 20 mg tablet,oral only,ext.rel.12 hr 1 tab PO QPM RF: 0 Held losartan 50 mg tablet 1 tab PO DAILY RF: 0 Hold Instructions: Resume on 11/14/20. please check bmp in 2 days and start back losartan as per pcp. Discontinued oxycodone [OxyContin] 30 mg tablet,oral only,ext.rel.12 hr 1 tab PO BID RF: 0 Discharge Orders: Discharge Order (Routine); Ordered 11/12/20 Ordered By: Shboha Tejeda Diet: diabetic diet and low salt diet Activity on Discharge: As tolerated Stand Alone Forms: Patient Portal Discharge page Other Ambulatory Orders: Basic Metabolic Panel Fasting (Routine) Timeframe: 1 Week Facility: [facility] - Location: Laboratory Ordered By: Shobha Tejeda Care Plan Goals: Patient admitted to the hospital due to toxic mass metabolic encephalopathy related to excessive sedative medication use including Ativan/opioids. Also found to have MARICHUY: Patient was hydrated as well as his sedative medications were on hold subsequently patient mental status improved significantly and patient seen by psych recommended to start slowly Ativan and we also cut down opioid dosing. Recommended to the patient to slowly cut down Ativan and OxyContin out patiently more if possible patient is to follow-up with his psych provider for that. MARICHUY: Improved with hydration. Asymptomatic pyuria: Patient denies any urinary symptoms and urine culture is negative. Afebrile. Will defer antibiotics. If with new symptoms patient need follow-up with PCP or can come to ED. Hypertension/CKD: Pain after hydration patient the a creatinine come to 1.3 range but patient has baseline CKD disease, will hold losartan for 2 days, check renal function and electrolytes with PCP in next few days and patient can go back on losartan as per PCP if renal function is at baseline., in addition for now we will came amlodipine limited supply for 1 week until patient is off losartan. Please discontinue amlodipine once losartan is started. Sleep apnea: Patient will need outpatient pulmonary evaluation. Health Concerns: As above. Plan of Treatment: As above. Assessment: as above.
== END 2020-11-12 17:21 | disposition home health service (06) | DRG 91 ==
LOC: HO.ED 21:21 → HO.EDOVER 23:31 → HO.IMC 23:46
PROVIDERS: Admitting Provider Internal Medicine; Emergency Provider Internal Medicine; PCP Internal Medicine; Visit Provider Internal Medicine
DX: G92 Toxic encephalopathy (principal); I21.A1 Myocardial infarction type 2; Z68.41 Body mass index [BMI] 40.0-44.9, adult; N17.9 Acute kidney failure, unspecified; G47.30 Sleep apnea, unspecified; E66.9 Obesity, unspecified; M54.9 Dorsalgia, unspecified; I12.9 Hypertensive chronic kidney disease with stage 1 through stage 4 chronic kidney disease, or unspecified chronic kidney disease; E11.22 Type 2 diabetes mellitus with diabetic chronic kidney disease; N18.30 Chronic kidney disease, stage 3 unspecified; Z86.73 Personal history of transient ischemic attack (TIA), and cerebral infarction without residual deficits; G89.29 Other chronic pain; J70.8 Respiratory conditions due to other specified external agents; T42.4X5A Adverse effect of benzodiazepines, initial encounter; T40.425A Adverse effect of tramadol, initial encounter; Y92.9 Unspecified place or not applicable; Z20.822 Contact with and (suspected) exposure to COVID-19; Z91.19 Patient's noncompliance with other medical treatment and regimen; Z99.81 Dependence on supplemental oxygen; Z88.5 Allergy status to narcotic agent; Z88.6 Allergy status to analgesic agent; Z87.891 Personal history of nicotine dependence; Z79.82 Long term (current) use of aspirin; Z79.84 Long term (current) use of oral hypoglycemic drugs; Z79.52 Long term (current) use of systemic steroids; Z79.899 Other long term (current) drug therapy
CPT/HCPCS: 36415; 70450; 71045; 74176; 80048; 80076; 81001; 81003; 82550; 82803; 82947; 83605; 83880; 84484; 85025; 85027; 85610; 85730; 87040; 87086; 87147; 87205; 87635; 93005; 93306; 94640; 99284; J0696; J2543; Q9957

== ENCOUNTER 2020-12-24 10:10 | Outpatient (REF) | payer MEDICARE, MEDICAID, SELFPAY ==
[2020-12-24 11:18] LABS: Protein/Creatinine Ratio, Ur 0.33 (<0.2); Total Protein Urine Random 49 mg/dL (<12)
[2020-12-24 11:22] LABS: Anion Gap 12 (12-20); Blood Urea Nitrogen 22 mg/dL (9-16); Calcium 8.6 mg/dL (8.4-10.2); Carbon Dioxide 23 mmol/L (22-29); Chloride 112 mmol/L (96-108); Estimated Glomerular Filt Rate 55; Potassium 3.9 mmol/L (3.3-5.1); Sodium 143 mmol/L (135-145)
== END 2020-12-24 10:11 | disposition home or self-care (01) ==
LOC: HO.LAB 10:10
PROVIDERS: PCP Internal Medicine; Visit Provider Internal Medicine Hypertension Specialist
DX: N18.31 Chronic kidney disease, stage 3a (principal)
CPT/HCPCS: 36415; 80051; 82310; 82565; 84156; 84520

== ENCOUNTER 2021-02-25 09:59 | Outpatient (REF) | payer MEDICARE, MEDICAID, SELFPAY ==
[2021-02-25 11:16] LABS: Alanine Aminotransferase 20 U/L (0-40); Albumin Level 4.1 g/dL (3.5-5.0); Alkaline Phosphatase 164 U/L (39-117); Anion Gap 12 (12-20); Aspartate Amino Transferase 19 U/L (5-37); Bilirubin Total 0.4 mg/dL (0.0-1.0); Blood Urea Nitrogen 13 mg/dL (9-16); Carbon Dioxide 27 mmol/L (22-29); Chloride 105 mmol/L (96-108); Estimated Glomerular Filt Rate 54; Glucose Random 136 mg/dL (60-115); Potassium 3.9 mmol/L (3.3-5.1); Sodium 140 mmol/L (135-145); Total Protein 6.7 g/dL (6.5-8.0)
[2021-02-25 12:12] LABS: Creatinine Urine 81.86 mg/dL; Protein/Creatinine Ratio, Ur 0.78 (<0.2); Total Protein Urine Random 64 mg/dL (<12)
== END 2021-02-25 10:00 | disposition home or self-care (01) ==
LOC: HO.LAB 09:59
PROVIDERS: PCP Internal Medicine; Visit Provider Internal Medicine Hypertension Specialist
DX: N03.9 Chronic nephritic syndrome with unspecified morphologic changes (principal)
CPT/HCPCS: 36415; 80053; 84156

== ENCOUNTER 2021-03-07 10:52 | Outpatient (REF) | payer MEDICARE, MEDICAID, SELFPAY | END 2021-03-07 10:53 | disposition home or self-care (01) | LOC: HO.LAB 10:52 | PROVIDERS: PCP Internal Medicine; Visit Provider Internal Medicine | DX: Z20.822 Contact with and (suspected) exposure to COVID-19 (principal) | CPT/HCPCS: C9803; U0003; U0005 ==

== ENCOUNTER 2021-05-29 12:44 | Outpatient (REF) | payer MEDICARE, MEDICAID, SELFPAY ==
[2021-05-29 14:22] LABS: Hematocrit 46.6 % (42.0-52.0); Hemoglobin 15.1 g/dl (14.0-18.0); Mean Corpuscular HGB Conc 32.4 g/dl (31.0-36.0); Mean Corpuscular Hemoglobin 31.4 pg (27.0-33.0); Mean Corpuscular Volume 96.9 fL (80.0-98.0); Mean Platelet Volume 11.5 fL (9.4-12.4); Platelet Count 196 X10*3/uL (160-400); Red Blood Count 4.81 X10*6/uL (4.60-5.80); Red Cell Distribution Width 13.9 % (11.0-16.0); White Blood Count 6.8 X10*3/uL (4.8-10.8)
[2021-05-29 14:45] LABS: Anion Gap 12 (12-20); Blood Urea Nitrogen 22 mg/dL (9-16); Calcium 9.1 mg/dL (8.4-10.2); Carbon Dioxide 28 mmol/L (22-29); Chloride 108 mmol/L (96-108); Estimated Glomerular Filt Rate 51; Glucose Fasting 97 mg/dL (60-99); Potassium 4.5 mmol/L (3.3-5.1); Sodium 143 mmol/L (135-145)
[2021-05-29 15:18] LABS: Creatinine Urine 133.72 mg/dL; Protein/Creatinine Ratio, Ur 0.47 (<0.2); Total Protein Urine Random 63 mg/dL (<12)
== END 2021-05-29 12:45 | disposition home or self-care (01) ==
LOC: HO.LAB 12:44
PROVIDERS: Internal Medicine; PCP Internal Medicine; Visit Provider Internal Medicine Hypertension Specialist
DX: N18.31 Chronic kidney disease, stage 3a (principal); N17.9 Acute kidney failure, unspecified
CPT/HCPCS: 36415; 80048; 84156; 85027

== ENCOUNTER 2021-08-03 14:26 | Emergency (ER) | payer OTHER, MEDICARE, MEDICAID, SELFPAY ==
[2021-08-03] VITALS (10 sets, daily range): BP systolic 118–178; BP diastolic 72–92; PULSE 78–101; RESP 15–18; TEMP 36.5–36.6; O2SAT 91–98; BMI 42.3
--- NOTE | ~2021-08-03 | CT_ITS ---
EXAMINATION: CT HEAD WITHOUT CONTRAST CLINICAL INFORMATION: Acute dizziness COMPARISON: CT head 11/09/2020 TECHNIQUE: Contiguous axial imaging was performed from the skull base to vertex without intravenous administration of contrast. This CT examination was performed using dose optimization techniques as appropriate, variously including the following: *Automated exposure control *Adjustment of mA and/or kV according to patient size (this includes techniques or standardized protocols for targeted exams where dose is matched to indication/reason for exam; i.e. extremities or head) *Use of iterative reconstruction technique DLP: 735 mGy-cm FINDINGS: There is no evidence of acute intracranial hemorrhage or acute edematous territorial infarction. No abnormal mass effect or midline shift is seen. Left parietal-occipital encephalomalacia, slightly progressed from previous. No extra-axial fluid collections are identified. The ventricles are normal in size. No acute calvarial fracture. The mastoid air cells and visualized portions of the paranasal sinuses are well aerated. CT/CT head/brain wo con IMPRESSION: No acute intracranial hemorrhage or edematous territorial infarction..
--- NOTE | 2021-08-03 14:59 | ECG_ITS ---
Test Reason : DIZZY Blood Pressure : / mmHG Vent. Rate : 077 BPM Atrial Rate : 077 BPM P-R Int : 188 ms QRS Dur : 074 ms QT Int : 386 ms P-R-T Axes : 060 004 032 degrees QTc Int : 436 ms Normal sinus rhythm Normal ECG When compared with ECG of 09-NOV-2020 21:37, Sinus rhythm has replaced Ectopic atrial rhythm Left posterior fascicular block is no longer Present Referred By: Candida Shankar Electronically Signed By:Edison Graham
[2021-08-03 15:05] LABS: Glucose, Whole Blood 123 mg/dL (60-115)
[2021-08-03 16:08] LABS: MANUAL DIFF FLAG NO
[2021-08-03 16:10] LABS: Appearance Urine CLEAR; Color Urine YELLOW; Glucose Urine UA NEG (NEG); Leukocyte Esterase Urine 2+ (NEG); Nitrite Urine NEG (NEG); Specific Gravity - Urine 1.015 (1.005-1.025); UACC Culture Trigger YES; Urine Blood TRACE (NEG); Urine Ketones NEG (NEG); Urine Protein 1+ MG/DL (NEG-TRACE)
[2021-08-03 16:11] LABS: Basophils Absolute Auto 0.1 X10*3/uL (0.0-0.2); Basophils Percent Auto 0.7 % (0-2); Eosinophils Absolute Auto 0.4 X10*3/uL (0.0-0.4); Eosinophils Percent Auto 5.7 % (0-4); Hemoglobin 15.9 g/dl (14.0-18.0); Imm Gran Abs Auto 0.07 X10*3/uL (0.00-0.03); Imm Gran Pct Auto 0.9 % (0.0-0.4); Lymphocytes Absolute Auto 1.3 X10*3/uL (1.2-4.9); Lymphocytes Percent Auto 17.4 % (20-40); Mean Corpuscular HGB Conc 32.4 g/dl (31.0-36.0); Mean Corpuscular Hemoglobin 30.7 pg (27.0-33.0); Mean Corpuscular Volume 94.6 fL (80.0-98.0); Mean Platelet Volume 10.3 fL (9.4-12.4); Monocytes Absolute Auto 0.6 X10*3/uL (0.1-1.2); Monocytes Percent Auto 7.5 % (2-11); Neutrophils Percent Auto 67.8 % (45-73); Platelet Count 167 X10*3/uL (160-400); Red Blood Count 5.18 X10*6/uL (4.60-5.80); Red Cell Distribution Width 13.8 % (11.0-16.0); White Blood Count 7.4 X10*3/uL (4.8-10.8)
--- NOTE | 2021-08-03 16:12 | ED.DIZZY ---
HPI - Dizziness General Chief Complaint: Dizziness Stated Complaint: WEAKNESS,UNSTEADY GAIT,LIGHTHEADED Time Seen by Provider: 08/03/21 14:49 Source: patient Mode of arrival: ambulatory Limitations: no limitations History of Present Illness HPI Narrative: Patient comes to emergency room complaining of 2 days of intermittent dizziness. Patient states that whenever he stands up, he feels dizzy. Yesterday, he did have a fall, landed on his knees, did not hit his head, did not lose consciousness, patient is not on blood thinners. Today, patient had a similar episode. Patient's lower extremity is ?give out?. Again, patient did not have any head injury. Patient describes the dizziness as room spinning around. Patient states it lasted between a few seconds to a couple of couple of minutes. Patient denies any other neurological deficits. At this time, patient is not dizzy. Related Data Home Medications Medication Instructions Recorded Confirmed albuterol sulfate 90 mcg/actuation 2 puff INHALATION Q3-4H 11/09/20 11/09/20 aerosol inhaler (Ventolin HFA) allopurinol 100 mg tablet 2 tab PO DAILY 11/09/20 11/09/20 carisoprodol 350 mg tablet 2 tab PO TID 11/09/20 11/09/20 glipizide 2.5 mg tablet, extended 1 tab PO BID 11/09/20 11/09/20 release 24 hr lorazepam 1 mg tablet 1 tab PO TID 11/09/20 11/09/20 losartan 50 mg tablet 1 tab PO DAILY 11/09/20 11/09/20 omeprazole 20 mg capsule,delayed 1 cap PO DAILY 11/09/20 11/09/20 release oxycodone 20 mg tablet,crush 1 tab PO QPM 11/09/20 11/09/20 resistant,extended release 12 hr (OxyContin) prednisone 5 mg tablet 1 tab PO ONCE 11/09/20 11/09/20 simvastatin 20 mg tablet 1 tab PO DAILY 11/09/20 11/09/20 Previous Rx's Medication Instructions Recorded amlodipine 5 mg tablet 5 mg PO DAILY #7 tab 11/12/20 aspirin 81 mg tablet,delayed 81 mg PO DAILY #30 tab 11/12/20 release Allergies Allergy/AdvReac Type Severity Reaction Status Date / Time codeine [CODEINE] Allergy Intermediate RASH Verified 08/03/21 14:37 morphine [MORPHINE] Allergy Mild NAUSEA Verified 08/03/21 14:37 ibuprofen [From MOTRIN] Allergy Unknown NAUSEA Verified 08/03/21 14:37 Review of Systems Review of Systems: Constitutional : No Weight loss, No Fever, No Chills, No Night Sweats, No Fatigue, No Malaise ENT/Mouth : No Hearing loss, No Ear Pain, No Nasal Congestion, No Sinus Pain, No Hoarseness, No sore throat, No Rhinorrhea, No Swallowing Difficulty Eyes: No Eye Pain, No Swelling, No Redness, No Foreign Body, No Discharge, No Vision Changes Cardiovascular : No Chest Pain, No SOB, No Dyspnea on Exertion, No Orthopnea, No Edema, No Palpitations Respiratory : No Cough, No Sputum, No Wheezing, No Smoke Exposure, No Dyspnea Gastrointestinal : No Nausea, No Vomiting, No Diarrhea, No Constipation, No abdominal Pain, No Hematochezia, No Melena Genitourinary : no irregular bleeding, No Dysuria, No Urinary Frequency, No Hematuria, No Urinary Incontinence, No Urgency, No Flank Pain, No Urinary Flow Changes, No Hesitancy Musculoskeletal : No joint pain, No Myalgias, No Joint Swelling Skin : No Skin Lesions, No rash Neuro : No Weakness, No Numbness, No Paresthesias, No Loss of Consciousness, complaining of intermittent leg weakness with dizziness/room spinning. Psych : No Anxiety/Panic, No Depression, No SI/HI/AH/VH, No Social Issues, Heme/Lymph: No Bruising, No Bleeding,No Lymphadenopathy Endocrine : No Polyuria, No Polydipsia, No Temperature Intolerance [facility] Past Medical History Medical History Chronic back pain CVA (cerebral vascular accident) Lung nodule Oxygen dependent Sleep apnea Social History Social History Household Members: Spouse Housing: House Do you presently have visiting nurse or other home services: No Alcohol intake: former Patient Tobacco Use Status: Former Tobacco user Use of substances other than those prescribed or required for medical reasons: No Advance Directives: No Advance Directives Information Provided: No Current occupational status: retired Physical Exam Vital Signs: Vital Signs: Last Vital Signs Temp 97.8 F 08/03/21 14:53 Pulse 85 08/03/21 15:15 Resp 15 08/03/21 14:53 BP 118/74 08/03/21 15:15 Pulse Ox 95 08/03/21 14:53 Oxygen Flow Rate 2 08/03/21 14:37 BMI result Body Mass Index 42.3 Const: Other: Appearance: Alert. Oriented X3. No acute distress. Well-appearing Eyes: Pupils equal, round and reactive to light. ENT: Pharynx normal. Neck: Normal inspection. Neck supple. No lymph nodes noted. No crepitus CVS: Normal heart rate and rhythm. Pulses normal. Normal S1 and S2 Respiratory: No respiratory distress. Breath sounds normal. No Wheezing. No rales Abdomen: Soft and nontender. No rigidity. No distention. Skin: Skin warm and dry. Normal skin color. Normal skin turgor. Extremities: No lower extremity edema. No Lacerations. No Rash Neuro: Oriented X 3. No motor deficit. No sensory deficit. Moving all extremities. No slurred speech. CN 2 through 12 grossly intact. No dizziness with head turning Psych: calm, cooperative, normal affect MDM - Dizziness MDM Narrative Medical decision making narrative: Patient's orthostatic vitals are positive, patient was also dizzy with sitting and standing. Patient receiving IV fluids, no history of CHF. Follow-up the labs pending. At this time, orthostatic hypotension suspected, patient has no neurological deficits. Patient was medicated with IV fluids and also meclizine. Sign-out given to Dr. Jacobsen Lab Data Result diagrams: 08/03/21 16:00 08/03/21 16:00 Labs: Lab Results 08/03/21 08/03/21 Range/Units 15:00 16:00 WBC 7.4 (4.8-10.8) X10*3/uL RBC 5.18 (4.60-5.80) X10*6/uL Hgb 15.9 (14.0-18.0) g/dl Hct 49.0 (42.0-52.0) % MCV 94.6 (80.0-98.0) fL MCH 30.7 (27.0-33.0) pg MCHC 32.4 (31.0-36.0) g/dl RDW 13.8 (11.0-16.0) % Plt Count 167 (160-400) X10*3/uL MPV 10.3 (9.4-12.4) fL Immature Gran % (Auto) 0.9 H (0.0-0.4) % Neut % (Auto) 67.8 (45-73) % Lymph % (Auto) 17.4 L (20-40) % [place] % (Auto) 7.5 (2-11) % Eos % (Auto) 5.7 H (0-4) % Baso % (Auto) 0.7 (0-2) % Lymph # (Auto) 1.3 (1.2-4.9) X10*3/uL [place] # (Auto) 0.6 (0.1-1.2) X10*3/uL Eos # (Auto) 0.4 (0.0-0.4) X10*3/uL Baso # (Auto) 0.1 (0.0-0.2) X10*3/uL Abs Immat Gran (auto) 0.07 H (0.00-0.03) X10*3/uL Absolute Neuts (auto) 5.0 (2.0-8.3) x10*3/uL Absolute Nucleated RBC 0.000 (0.0-0.012) X10*3/uL Nucleated RBC % (auto) 0.0 (0.0-0.2) /100WBC POC Glucose 123 H (60-115) mg/dL Discharge Plan Discharge Clinical Impression: Orthostatic hypotension Patient Disposition: Still a Patient Prescriptions: No Action losartan 50 mg tablet 1 tab PO DAILY 0RF Hold Instructions: Resume on 11/14/20. please check bmp in 2 days and start back losartan as per pcp. carisoprodol 350 mg tablet 2 tab PO TID 0RF prednisone 5 mg tablet 1 tab PO ONCE 0RF allopurinol 100 mg tablet 2 tab PO DAILY 0RF glipizide 2.5 mg tablet extended release 24hr 1 tab PO BID 0RF simvastatin 20 mg tablet 1 tab PO DAILY 0RF omeprazole 20 mg capsule,delayed release(DR/EC) 1 cap PO DAILY 0RF lorazepam 1 mg tablet 1 tab PO TID 0RF albuterol sulfate [Ventolin HFA] 90 mcg/actuation HFA aerosol inhaler 2 puff inhalation Q3-4H 0RF oxycodone [OxyContin] 20 mg tablet,oral only,ext.rel.12 hr 1 tab PO QPM 0RF aspirin 81 mg Tablet,Delayed Release (Dr/Ec) 81 mg PO DAILY Qty: 30 0RF amlodipine 5 mg tablet 5 mg PO DAILY Qty: 7 0RF
[2021-08-03] MEDS: 0.9 % Sodium Chloride 1,000 ML 999 ML IVCONT (16:14)
[2021-08-03] MEDS: Meclizine HCl 25 MG TABLET 50 MG PO (16:14)
[2021-08-03 16:20] LABS: Bacteria Urine TRACE /LPF; Mucus Urine TRACE /LPF; Prothrombin Time 11.6 SEC (9.9-13.0); Squamous Epithelial Cell Urine TRACE /LPF; WBC Clumps Urine NOTED
[2021-08-03 16:21] LABS: WBC Urine 30-49 /HPF (0-4)
[2021-08-03 16:23] LABS: COVID-19 Test Negative (Negative); IDNOW Serial# 16C4AD1C
[2021-08-03 16:24] LABS: Ethanol < 10 mg/dL
[2021-08-03 16:26] LABS: Alanine Aminotransferase 18 U/L (0-40); Albumin Level 4.1 g/dL (3.5-5.0); Alkaline Phosphatase 169 U/L (39-117); Amphetamine Screen Urine Not Detected (Not Detect); Anion Gap 14 (12-20); Aspartate Amino Transferase 16 U/L (5-37); Barbiturates, Urine POSITIVE (Not Detect); Benzodiazepines Screen Urine Not Detected (Not Detect); Bilirubin Direct 0.2 mg/dL (0.0-0.5); Bilirubin Total 0.5 mg/dL (0.0-1.0); Blood Urea Nitrogen 18 mg/dL (9-16); Cannabinoid Screen Urine Not Detected (Not Detect); Carbon Dioxide 23 mmol/L (22-29); Chloride 108 mmol/L (96-108); Cocaine Screen Urine Not Detected (Not Detect); Creatinine Clr Calc Pharmacy 62.4; Estimated Glomerular Filt Rate 56; Fentanyl, urine Not Detected (Not Detect); Glucose Random 101 mg/dL (60-115); Magnesium 1.8 mg/dL (1.6-2.6); Opiate Screen Urine Not Detected (Not Detect); Phencyclidine Screen Urine Not Detected (Not Detect); Potassium 4.2 mmol/L (3.3-5.1); Sodium 141 mmol/L (135-145); Total Protein 6.8 g/dL (6.5-8.0)
[2021-08-03 16:30] LABS: Troponin-I High Sensitivity 11.5 ng/L (<3.5-35.0)
[2021-08-03 18:06] LABS: Lactic Acid 0.8 mmol/L (0.5-2.0)
[2021-08-03] MEDS: cefTRIAXone sodium 1 GM in 0.9 % Sodium Chloride 50 ML IV (18:26)
--- NOTE | 2021-08-03 18:26 | PC.NURSE ---
states dizziness has improved but did feel lightheaded getting up from CT. nsr on monitor. skin pwd. no neuro deficits
== END 2021-08-03 20:03 | disposition home or self-care (01) ==
PROVIDERS: Emergency Medicine; Emergency Provider Internal Medicine
DX: I95.1 Orthostatic hypotension (principal); R42 Dizziness and giddiness; Z20.822 Contact with and (suspected) exposure to COVID-19; Z79.899 Other long term (current) drug therapy; Z87.891 Personal history of nicotine dependence
CPT/HCPCS: 36415; 70450; 80048; 80076; 80307; 81001; 82077; 82947; 83605; 83735; 84484; 85025; 85610; 87040; 87086; 87635; 93005; 96365; 99284; J0696

== ENCOUNTER 2021-09-29 11:49 | Outpatient (REF) | payer MEDICARE, MEDICAID, OTHER, SELFPAY ==
[2021-09-29 13:04] LABS: Hemoglobin 14.4 g/dl (14.0-18.0); Mean Corpuscular HGB Conc 32.7 g/dl (31.0-36.0); Mean Corpuscular Volume 94.8 fL (80.0-98.0); Mean Platelet Volume 10.5 fL (9.4-12.4); Platelet Count 192 X10*3/uL (160-400); Red Blood Count 4.64 X10*6/uL (4.60-5.80); Red Cell Distribution Width 14.1 % (11.0-16.0)
[2021-09-29 13:39] LABS: Creatinine Urine 93.55 mg/dL; Total Protein Urine Random 122 mg/dL (<12)
[2021-09-29 13:39] LABS: Alanine Aminotransferase 26 U/L (0-40); Albumin Level 3.9 g/dL (3.5-5.0); Alkaline Phosphatase 170 U/L (39-117); Anion Gap 16 (12-20); Aspartate Amino Transferase 19 U/L (5-37); Bilirubin Total 0.3 mg/dL (0.0-1.0); Blood Urea Nitrogen 20 mg/dL (9-16); Calcium 8.7 mg/dL (8.4-10.2); Carbon Dioxide 24 mmol/L (22-29); Chloride 107 mmol/L (96-108); Estimated Glomerular Filt Rate 59; Glucose Random 133 mg/dL (60-115); Potassium 3.8 mmol/L (3.3-5.1); Sodium 143 mmol/L (135-145); Total Protein 6.4 g/dL (6.5-8.0)
== END 2021-09-29 11:50 | disposition home or self-care (01) ==
LOC: HO.LAB 11:49
PROVIDERS: Visit Provider Internal Medicine Hypertension Specialist
DX: N18.31 Chronic kidney disease, stage 3a (principal)
CPT/HCPCS: 36415; 80053; 84156; 85027

== ENCOUNTER 2022-02-17 15:16 | Outpatient (REF) | payer MEDICARE, MEDICAID, SELFPAY ==
[2022-02-17 15:38] LABS: MANUAL DIFF FLAG NO
[2022-02-17 16:15] LABS: Basophils Absolute Auto 0.1 X10*3/uL (0.0-0.2); Basophils Percent Auto 0.5 % (0-2); Eosinophils Absolute Auto 0.9 X10*3/uL (0.0-0.4); Eosinophils Percent Auto 9.8 % (0-4); Hemoglobin 14.6 g/dl (14.0-18.0); Imm Gran Abs Auto 0.05 X10*3/uL (0.00-0.03); Imm Gran Pct Auto 0.5 % (0.0-0.4); Lymphocytes Absolute Auto 1.5 X10*3/uL (1.2-4.9); Lymphocytes Percent Auto 15.7 % (20-40); Mean Corpuscular HGB Conc 32.4 g/dl (31.0-36.0); Mean Corpuscular Hemoglobin 31.1 pg (27.0-33.0); Mean Corpuscular Volume 95.9 fL (80.0-98.0); Monocytes Percent Auto 10.7 % (2-11); Neutrophils Percent Auto 62.8 % (45-73); Platelet Count 175 X10*3/uL (160-400); Red Blood Count 4.69 X10*6/uL (4.60-5.80); Red Cell Distribution Width 13.9 % (11.0-16.0); White Blood Count 9.5 X10*3/uL (4.8-10.8)
[2022-02-17 16:42] LABS: Anion Gap 16 (12-20); Blood Urea Nitrogen 26 mg/dL (9-16); Calcium 9.5 mg/dL (8.4-10.2); Carbon Dioxide 27 mmol/L (22-29); Chloride 102 mmol/L (96-108); Estimated Glomerular Filt Rate 46; Potassium 5.1 mmol/L (3.3-5.1); Sodium 140 mmol/L (135-145)
[2022-02-17 17:16] LABS: Appearance Urine Clear; Color Urine Yellow; Glucose Urine UA Negative (Negative); Leukocyte Esterase Urine Large (3+) (Negative); Nitrite Urine Negative (Negative); PH 5.5 (5.0-9.0); UMIC TRIGGER UA YES; Urine Blood Trace (Negative); Urine Ketones Negative (Negative); Urine Protein 30 (1+) mg/dL (Neg-Trace)
[2022-02-17 17:21] LABS: Bacteria Urine None Seen (None Seen); Hyaline Casts Urine 0-2 /LPF (0-2); RBC Urine 0-2 /HPF (0-2); Squamous Epithelial Cell Urine 0-2 /HPF (0-2); WBC Urine >50 /HPF (0-5)
[2022-02-17 17:52] LABS: Creatinine Urine 55.49 mg/dL; Total Protein Urine Random 28 mg/dL (<12)
== END 2022-02-17 15:17 | disposition home or self-care (01) ==
LOC: HO.LAB 15:16
PROVIDERS: Visit Provider Internal Medicine Hypertension Specialist
DX: N02.8 Recurrent and persistent hematuria with other morphologic changes (principal)
CPT/HCPCS: 36415; 80051; 81001; 82310; 82565; 84156; 84520; 85025

== ENCOUNTER 2022-03-25 14:13 | Outpatient (REF) | payer MEDICARE, MEDICAID, SELFPAY ==
--- NOTE | 2022-03-25 15:28 | MHC.AU.MED ---
Medical Clearance for Hearing Instrumentation Date: 03/25/22 Patient Name: Zane Delgado Date of : 1945 Referring Provider: Mj Bonilla MD We have seen your patient on 03/25/22 and have determined that they are a candidate for amplification (See accompanying report). Specifically, they would benefit from: Hearing aid use in both ears There is a statute that addresses Medical Evaluation Requirements prior to fitting a patient with a hearing aid. According to [place] statute [facility] CMR:6.03(1), (a) General. Except as provided in 265 CMR 6.03(1)(b), a marine design engineer shall not sell a hearing aid unless the prospective user has presented to the marine design engineer a written statement signed by a licensed physician that states that the patient's hearing loss has been medically evaluated and the patient may be considered a candidate for a hearing aid. The medical evaluation must have taken place within the preceding six months. Please note: Due to the [place] Statute referenced above, we cannot accept a signature other than that of a licensed physician. CLINICAL LABORATORY DIRECTOR and PA signatures cannot be accepted. I am in agreement with the above recommendation. There is no medical contraindication for hearing instrumentation. Physician Signature Date Physician Name (Printed)
--- NOTE | 2022-03-25 15:28 | MHC.AU.HAS ---
Hearing Aid Evaluation Date of Visit: 03/25/22 Historical Information: Description of Hearing: Mild sloping to profound sensorineural hearing loss bilaterally Summary: Patient was seen for audiological evaluation (see separate report for details). He has been using personal amplifiers purchased from [employer], but they are no longer meeting his needs. Hearing aid options were discussed. He would like rechargeable batteries for ease of use and he would like the BTE style. Hearing Aid Prescription: Based on the individual?s shared listening needs, communication environments, dexterity, desire for connectivity, and personal preferences, the following prescription for amplification has been made: Pair of Kisstixxv AI 1600 BTE-R with Microsonic molds Action Taken/Action Needed: Earmold Impressions Taken Medical Clearance to be requested from PCP/ENT Hearing Instrument Fitting to be scheduled when materials arrive Primary Diagnosis: H90.3 Bilateral Sensorineural Hearing Loss Signature: Provider: Sonya Easton, CCC-A
== END 2022-03-25 14:14 | disposition home or self-care (01) ==
LOC: HO.SH 14:13
PROVIDERS: Visit Provider Internal Medicine
DX: Z01.118 Encounter for examination of ears and hearing with other abnormal findings (principal); Z46.1 Encounter for fitting and adjustment of hearing aid; H90.3 Sensorineural hearing loss, bilateral
CPT/HCPCS: 92557; 92567; 92591; V5275

== ENCOUNTER 2022-05-19 14:22 | Outpatient (REF) | payer MEDICARE, MEDICAID, SELFPAY ==
--- NOTE | 2022-05-19 15:24 | MHC.AU.HA2 ---
Hearing Instrument Fitting- Adult- Binaural Date of Visit: 05/19/22 Hearing Instruments Dispensed: Right Ear: Make, Model, Color, Serial Number: Lauro RIZO 1600 BTE-R SN: [id number] Color: Bronze Pot [employer]ner Rep[employer] Warranty: 07/20/2025 [employer] Loss and Damage Warranty: 07/20/2025 [facility] Service Plan: 05/19/2023 Battery Size: Rechargeable Earmold/Dome/CShell/SlimTip: Microsonic Clear M2000 Skeleton Left Ear: Make, Model, Color, Serial Number: Lauro RIZO 1600 BTE-R SN: [id number] Color: Bronze [employer] Warranty: 07/20/2025 [employer] Loss and Damage Warranty: 07/20/2025 [facility] Service Plan: 05/19/2023 Battery Size: Rechargeable Earmold/Dome/CShell/SlimTip: Microsonic Clear M2000 Skeleton Accessories/Assistive Technology: Lauro Standard Leadership Intern (1NA Plug) SN [id number] Summary of Fitting: Ran feedback canceller and real ear measurements. Decreased adaptation manager inventory to level 1 with automatic increase to level 3 in four months. Discussed care, use, and rechargeability, including manually turning on/off, volume control use, and cleaning. Explained the importance of consistent use and the acclimatization period. Zane reported that the hearing aids sounded significantly better than the personal amplifiers he had been using from [employer]. He is not interested in connecting the hearing aids to his cellphone or bluetooth compatibility as he has a flip phone. Recommendations: A hearing instrument follow-up was scheduled. Diagnosis Code(s): Primary Diagnosis: H90.3 Bilateral Sensorineural Hearing Loss Signature: Provider: Sonya Antoine, [facility]
== END 2022-05-19 14:23 | disposition home or self-care (01) ==
LOC: HO.HAP 14:22
PROVIDERS: Visit Provider Internal Medicine
DX: Z46.1 Encounter for fitting and adjustment of hearing aid (principal); H90.3 Sensorineural hearing loss, bilateral
CPT/HCPCS: V5011; V5020; V5160; V5261; V5264

== ENCOUNTER 2022-07-19 15:44 | Inpatient (IN) | payer MEDICARE, MEDICAID, SELFPAY ==
--- NOTE | ~2022-07-19 | XR_ITS ---
EXAMINATION: XR CHEST CLINICAL INFORMATION: Dyspnea. COMPARISON: None available. TECHNIQUE: 2 views of the chest were obtained. FINDINGS: The lungs are well-expanded and clear. The heart size and pulmonary vascularity is normal. No gross bony abnormality seen. XR/XR chest 2V IMPRESSION: Unremarkable chest exam.
--- NOTE | ~2022-07-19 | CT_ITS ---
EXAMINATION: CT CHEST WITHOUT CONTRAST CLINICAL INFORMATION: Shortness of breath COMPARISON: Chest x-ray 07/19/[address] 05/09/2018 TECHNIQUE: Multidetector volumetric CT imaging of the chest was done. Axial MIP volume rendering provided. Sagittal and coronal reformatted images were obtained. This CT examination was performed using dose optimization techniques as appropriate, variously including the following: *Automated exposure control *Adjustment of mA and/or kV according to patient size (this includes techniques or standardized protocols for targeted exams where dose is matched to indication/reason for exam; i.e. extremities or head) *Use of iterative reconstruction technique DLP: 252 mGy-cm FINDINGS: The heart is normal in size. Coronary artery calcifications are present. Normal caliber thoracic aorta. A few normal-sized mediastinal lymph nodes are noted. No pathologically enlarged axillary lymph nodes. Central airways are patent although some mild peripheral mucous plugging is noted. Filling defect dependently within the trachea statistically represents mucus. The lungs are adequately aerated. Mild emphysematous changes are present. Some lingular and dependent atelectasis noted. No pleural effusion or pneumothorax. A few previously visualized subcentimeter pulmonary nodules are stable. Visualized portions of the upper abdomen demonstrate no acute abnormality. Mild to moderate degenerative changes of the spine. CT/CT chest wo IV con IMPRESSION: 1. Mild emphysema. 2. A few previously visualized subcentimeter pulmonary nodules are stable. No new suspicious pulmonary nodules visualized. Fleischner guidelines were followed.
--- NOTE | ~2022-07-19 | CT_ITS ---
EXAMINATION: CT HEAD WITHOUT CONTRAST CLINICAL INFORMATION: Weakness. COMPARISON: CT scan of the head dated 08/03/2021, 11/09/2020 and 11/06/2018. TECHNIQUE: Contiguous axial imaging was performed from the skull base to vertex without intravenous administration of contrast. This CT examination was performed using dose optimization techniques as appropriate, variously including the following: *Automated exposure control *Adjustment of mA and/or kV according to patient size (this includes techniques or standardized protocols for targeted exams where dose is matched to indication/reason for exam; i.e. extremities or head) *Use of iterative reconstruction technique DLP: 669.51 mGy-cm FINDINGS: Again seen is a large area of focal encephalomalacia in the posterior left parieto-occipital region, unchanged from prior exams. García to white matter differentiation is otherwise well preserved. There is no evidence of acute intracranial hemorrhage or territorial infarction. No abnormal mass-effect or midline shift is seen. No extra-axial fluid collections are identified. The ventricles are normal in size. There is no abnormal attenuation within the brain parenchyma. The osseous structures and soft tissues are normal. Minimal mucosal thickening is seen in the left sphenoid sinus. The mastoid air cells and visualized portions of the paranasal sinuses are otherwise well-aerated. CT/CT head/brain wo IV con IMPRESSION: 1. No acute intracranial pathology. 2. Chronic large area of encephalomalacia in the posterior left parieto-occipital region. 3. Minimal mucosal thickening in the left sphenoid sinus.
[2022-07-19 16:20] LABS: MANUAL DIFF FLAG NO
[2022-07-19 16:34] LABS: COVID-19 Test Negative (Negative); IDNOW Serial# 08D9AD1C
[2022-07-19 16:38] LABS: Alanine Aminotransferase 17 U/L (0-40); Albumin Level 4.2 g/dL (3.5-5.0); Alkaline Phosphatase 164 U/L (39-117); Anion Gap 16 (12-20); Aspartate Amino Transferase 18 U/L (5-37); Bilirubin Total 0.9 mg/dL (0.0-1.0); Blood Urea Nitrogen 22 mg/dL (9-16); Calcium 9.1 mg/dL (8.4-10.2); Carbon Dioxide 23 mmol/L (22-29); Chloride 104 mmol/L (96-108); Estimated Glomerular Filt Rate > 60; Glucose Random 140 mg/dL (60-115); Potassium 4.4 mmol/L (3.3-5.1); Sodium 139 mmol/L (135-145); Total Protein 6.8 g/dL (6.5-8.0)
[2022-07-19 16:44] LABS: B Type Natriuretic Peptide 254 pg/mL (<100)
[2022-07-19 16:47] LABS: Basophils Absolute Auto 0.1 X10*3/uL (0.0-0.2); Basophils Percent Auto 0.8 % (0-2); Eosinophils Absolute Auto 0.3 X10*3/uL (0.0-0.4); Eosinophils Percent Auto 3.8 % (0-4); Hematocrit 47.4 % (42.0-52.0); Hemoglobin 15.6 g/dl (14.0-18.0); Imm Gran Abs Auto 0.08 X10*3/uL (0.00-0.03); Imm Gran Pct Auto 1.1 % (0.0-0.4); Lymphocytes Absolute Auto 1.1 X10*3/uL (1.2-4.9); Lymphocytes Percent Auto 15.5 % (20-40); Mean Corpuscular HGB Conc 32.9 g/dl (31.0-36.0); Mean Corpuscular Hemoglobin 30.7 pg (27.0-33.0); Mean Corpuscular Volume 93.3 fL (80.0-98.0); Mean Platelet Volume 10.4 fL (9.4-12.4); Monocytes Absolute Auto 0.8 X10*3/uL (0.1-1.2); Neutrophils Percent Auto 67.8 % (45-73); Platelet Count 213 X10*3/uL (160-400); Red Blood Count 5.08 X10*6/uL (4.60-5.80); Red Cell Distribution Width 13.5 % (11.0-16.0); White Blood Count 7.4 X10*3/uL (4.8-10.8)
--- NOTE | 2022-07-19 16:52 | ECG_ITS ---
Test Reason : WEAKNESS Blood Pressure : / mmHG Vent. Rate : 085 BPM Atrial Rate : 085 BPM P-R Int : 152 ms QRS Dur : 118 ms QT Int : 414 ms P-R-T Axes : 038 -01 072 degrees QTc Int : 492 ms Normal sinus rhythm Incomplete left bundle branch block Nonspecific T wave abnormality Prolonged QT Abnormal ECG When compared with ECG of 03-AUG-2021 15:04, Incomplete left bundle branch block is now Present QT has lengthened Referred By: Saturnino Jauregui Electronically Signed By:JAIDA RUGGIERO
[2022-07-19 17:00] VITALS: BP 165/97; PULSE 78; RESP 22; TEMP 36.8; O2SAT 95; BMI 41.8
--- NOTE | 2022-07-19 17:09 | ED.SOB ---
HPI - SOB/Dyspnea General Chief Complaint: Dyspnea Stated Complaint: SOB, WEAKNESS Time Seen by Provider: 07/19/22 16:18 Source: patient and EMS Mode of arrival: EMS Limitations: no limitations History of Present Illness HPI Narrative: ?77 years old obese male with history of sleep apnea and chronic back pain on high doses of OxyContin 50 mg 2 times a day along with Soma and Ativan supposed to use CPAP at night but doesnt wear it presents w/ weakness, shortness of breath x 1 day. He states that today he felt like he was going to fall and his legs felt like they were going to give up on him, he did not fall however he states he has been feeling this way since Wednesday 2 days ago. Reports last time he felt this way he had a UTI. He doesnt wear oxygen at home however EMS placed him on O2 and it seemed to help. Denies chest pain, URI sx, nausea, vomiting, headache, vision changes, dizziness, flank pain, uti sx, changes in bowel habits Related Data Home Medications Medication Instructions Recorded Confirmed albuterol sulfate 90 mcg/actuation 2 puff inhalation Q3-4H 11/09/20 11/09/20 aerosol inhaler (Ventolin HFA) allopurinol 100 mg tablet 2 tab PO DAILY 11/09/20 11/09/20 carisoprodol 350 mg tablet 2 tab PO TID 11/09/20 11/09/20 glipizide 2.5 mg tablet, extended 1 tab PO BID 11/09/20 11/09/20 release 24 hr lorazepam 1 mg tablet 1 tab PO TID 11/09/20 11/09/20 losartan 50 mg tablet 1 tab PO DAILY 11/09/20 11/09/20 omeprazole 20 mg capsule,delayed 1 cap PO DAILY 11/09/20 11/09/20 release oxycodone 20 mg tablet,crush 1 tab PO QPM 11/09/20 11/09/20 resistant,extended release 12 hr (OxyContin) prednisone 5 mg tablet 1 tab PO ONCE 11/09/20 11/09/20 simvastatin 20 mg tablet 1 tab PO DAILY 11/09/20 11/09/20 Previous Rx's Medication Instructions Recorded amlodipine 5 mg tablet 5 mg PO DAILY #7 tabs 11/12/20 aspirin 81 mg tablet,delayed 81 mg PO DAILY #30 tabs 11/12/20 release cefpodoxime 200 mg tablet 200 mg PO BID #14 tabs 08/03/21 Allergies Allergy/AdvReac Type Severity Reaction Status Date / Time codeine [CODEINE] Allergy Intermediate RASH Verified 08/03/21 14:37 morphine [MORPHINE] Allergy Mild NAUSEA Verified 08/03/21 14:37 ibuprofen [From MOTRIN] Allergy Unknown NAUSEA Verified 08/03/21 14:37 [facility] Past Medical History Medical History Chronic back pain CVA (cerebral vascular accident) Lung nodule Oxygen dependent Sleep apnea Social History Social History Household Members: Spouse Housing: House Do you presently have visiting nurse or other home services: No Alcohol intake: former Patient Tobacco Use Status: Former Tobacco user Advance Directives: No Advance Directives Information Provided: No Current occupational status: retired Physical Exam Vital Signs: Vital Signs: Last Vital Signs Temp 98.3 F 07/19/22 17:00 Pulse 78 07/19/22 17:00 Resp 22 H 07/19/22 17:00 BP 165/97 H 07/19/22 17:00 Pulse Ox 95 07/19/22 17:00 O2 Del Method Nasal Cannula 07/19/22 17:00 Oxygen Flow Rate 2 07/19/22 17:00 BMI result Body Mass Index 41.8 vss Appearance: Alert.? Oriented X3.? No acute distress.? Head: Normocephalic, atraumatic, no step-offs or deformities Eyes: Pupils equal, round and reactive to light.? ENT: Pharynx normal.??External ears normal, TMs normal bilaterally and EAC's normal. No pain with manipulation of external ears bilaterally. No mastoid tenderness. Neck: Normal inspection.? Neck supple.? CVS: Normal heart rate and rhythm.? Pulses normal.? Respiratory: No respiratory distress.? Breath sounds normal.? Abdomen: Soft and nontender.? Skin: Skin warm and dry.? Normal skin color.? Normal skin turgor.? Extremities: No lower extremity edema.? No calf ttp. 5/5 strength to bilateral upper and lower extremities Back: No midline tenderness, no C-spine tenderness, full range of motion, no CVA tenderness bilaterally Neuro: Oriented X 3.? No motor deficit.? No sensory deficit. CN 2-12 intact Course Reevaluation(s) Reevaluation #1: CBC with no acute findings. Chemistry with no acute electrolyte abnormalities requiring intervention, BUN elevated at baseline and unchanged. Patient is noted to have a troponin of 15, EKG is nonischemic, 2nd troponin will be obtained although I do have low suspicion for ACS. Patient's BNP noted to be 254 deviating significantly from patient's baseline concerns for possible CHF as patient is complaining of weakness and shortness of breath. D-dimer is negative unlikely PE. Dry CT of the chest has been ordered at this time. Patient's urine also concerning for UTI blood cultures and lactic acid ordered, will cover him with ceftriaxone. Discussed this case with hospitalist who will admit patient for further evaluation and treatment. Time: 19:59 Medical Decision Making Medical Decision Making [facility] Narrative: 1700 77-year-old male presents for evaluation of shortness of breath and weakness. Dale like he was going to fall today however did not. Physical exam global weakness. No focal neuro deficits. Lungs clear. Abdomen soft nontender nondistended. Regular rate and rhythm. Concerns for possible CHF for viral illness. I do not suspect stroke, posterior stroke or intracranial hemorrhage. Will rule out electrolyte abnormalities and UTI. Unlikely [place] Plan labs, urine, imaging. Differential Diagnosis Differential Diagnoses: The differential diagnosis associated with the presentation includes Concerns for possible CHF for viral illness. I do not suspect stroke, posterior stroke or intracranial hemorrhage. Will rule out electrolyte abnormalities and UTI. Unlikely [place] Admission/Observation Consideration of admission/observation: Escalation of care including admission/observation considered Lab Data [facility] Lab Attestation statement: I reviewed the patient's lab results. 07/19/22 16:09 07/19/22 16:09 Labs: Lab Results 07/19/22 07/19/22 07/19/22 Range/Units 16:09 16:09 16:09 WBC 7.4 (4.8-10.8) X10*3/uL RBC 5.08 (4.60-5.80) X10*6/uL Hgb 15.6 (14.0-18.0) g/dl Hct 47.4 (42.0-52.0) % MCV 93.3 (80.0-98.0) fL MCH 30.7 (27.0-33.0) pg MCHC 32.9 (31.0-36.0) g/dl RDW 13.5 (11.0-16.0) % Plt Count 213 (160-400) X10*3/uL MPV 10.4 (9.4-12.4) fL Immature Gran % (Auto) 1.1 H (0.0-0.4) % Neut % (Auto) 67.8 (45-73) % Lymph % (Auto) 15.5 L (20-40) % [place] % (Auto) 11.0 (2-11) % Eos % (Auto) 3.8 (0-4) % Baso % (Auto) 0.8 (0-2) % Lymph # (Auto) 1.1 L (1.2-4.9) X10*3/uL [place] # (Auto) 0.8 (0.1-1.2) X10*3/uL Eos # (Auto) 0.3 (0.0-0.4) X10*3/uL Baso # (Auto) 0.1 (0.0-0.2) X10*3/uL Abs Immat Gran (auto) 0.08 H (0.00-0.03) X10*3/uL Absolute Neuts (auto) 5.0 (2.0-8.3) x10*3/uL Absolute Nucleated RBC 0.000 (0.0-0.012) X10*3/uL Nucleated RBC % (auto) 0.0 (0.0-0.2) /100WBC D-Dimer High Sensitivty NG/ML Sodium 139 (135-145) mmol/L Potassium 4.4 (3.3-5.1) mmol/L Chloride 104 (96-108) mmol/L Carbon Dioxide 23 (22-29) mmol/L Anion Gap 16 (12-20) BUN 22 H (9-16) mg/dL Creatinine 1.17 (0.5-1.4) mg/dL Estim Creat Clear Calc TNP Estimated GFR > 60 Random Glucose 140 H (60-115) mg/dL Calcium 9.1 (8.4-10.2) mg/dL Total Bilirubin 0.9 (0.0-1.0) mg/dL AST 18 (5-37) U/L ALT 17 (0-40) U/L Alkaline Phosphatase 164 H (39-117) U/L Troponin I High Sens (<3.5-35.0) ng/L B-Natriuretic Peptide 254 H (<100) pg/mL Total Protein 6.8 (6.5-8.0) g/dL Albumin 4.2 (3.5-5.0) g/dL Urine Color Urine Appearance Urine pH (5.0-9.0) Ur Specific [place] (1.005-1.025) Urine Protein (Neg-Trace) mg/dL Urine Glucose (UA) (Negative) mg/dL Urine Ketones (Negative) mg/dL Urine Blood (Negative) Urine Nitrite (Negative) Ur Leukocyte Esterase (Negative) COVID-19 ([facility]) (Negative) COVID-19 Clin Com 07/19/22 07/19/22 07/19/22 Range/Units 16:09 17:05 17:05 WBC (4.8-10.8) X10*3/uL RBC (4.60-5.80) X10*6/uL Hgb (14.0-18.0) g/dl Hct (42.0-52.0) % MCV (80.0-98.0) fL MCH (27.0-33.0) pg MCHC (31.0-36.0) g/dl RDW (11.0-16.0) % Plt Count (160-400) X10*3/uL MPV (9.4-12.4) fL Immature Gran % (Auto) (0.0-0.4) % Neut % (Auto) (45-73) % Lymph % (Auto) (20-40) % [place] % (Auto) (2-11) % Eos % (Auto) (0-4) % Baso % (Auto) (0-2) % Lymph # (Auto) (1.2-4.9) X10*3/uL [place] # (Auto) (0.1-1.2) X10*3/uL Eos # (Auto) (0.0-0.4) X10*3/uL Baso # (Auto) (0.0-0.2) X10*3/uL Abs Immat Gran (auto) (0.00-0.03) X10*3/uL Absolute Neuts (auto) (2.0-8.3) x10*3/uL Absolute Nucleated RBC (0.0-0.012) X10*3/uL Nucleated RBC % (auto) (0.0-0.2) /100WBC D-Dimer High Sensitivty < 150 NG/ML Sodium (135-145) mmol/L Potassium (3.3-5.1) mmol/L Chloride (96-108) mmol/L Carbon Dioxide (22-29) mmol/L Anion Gap (12-20) BUN (9-16) mg/dL Creatinine (0.5-1.4) mg/dL Estim Creat Clear Calc Estimated GFR Random Glucose (60-115) mg/dL Calcium (8.4-10.2) mg/dL Total Bilirubin (0.0-1.0) mg/dL AST (5-37) U/L ALT (0-40) U/L Alkaline Phosphatase (39-117) U/L Troponin I High Sens 15.0 (<3.5-35.0) ng/L B-Natriuretic Peptide (<100) pg/mL Total Protein (6.5-8.0) g/dL Albumin (3.5-5.0) g/dL Urine Color Urine Appearance Urine pH (5.0-9.0) Ur Specific [place] (1.005-1.025) Urine Protein (Neg-Trace) mg/dL Urine Glucose (UA) (Negative) mg/dL Urine Ketones (Negative) mg/dL Urine Blood (Negative) Urine Nitrite (Negative) Ur Leukocyte Esterase (Negative) COVID-19 ([facility]) Negative (Negative) COVID-19 Clin Com See Note 07/19/22 Range/Units 19:39 WBC (4.8-10.8) X10*3/uL RBC (4.60-5.80) X10*6/uL Hgb (14.0-18.0) g/dl Hct (42.0-52.0) % MCV (80.0-98.0) fL MCH (27.0-33.0) pg MCHC (31.0-36.0) g/dl RDW (11.0-16.0) % Plt Count (160-400) X10*3/uL MPV (9.4-12.4) fL Immature Gran % (Auto) (0.0-0.4) % Neut % (Auto) (45-73) % Lymph % (Auto) (20-40) % [place] % (Auto) (2-11) % Eos % (Auto) (0-4) % Baso % (Auto) (0-2) % Lymph # (Auto) (1.2-4.9) X10*3/uL [place] # (Auto) (0.1-1.2) X10*3/uL Eos # (Auto) (0.0-0.4) X10*3/uL Baso # (Auto) (0.0-0.2) X10*3/uL Abs Immat Gran (auto) (0.00-0.03) X10*3/uL Absolute Neuts (auto) (2.0-8.3) x10*3/uL Absolute Nucleated RBC (0.0-0.012) X10*3/uL Nucleated RBC % (auto) (0.0-0.2) /100WBC D-Dimer High Sensitivty NG/ML Sodium (135-145) mmol/L Potassium (3.3-5.1) mmol/L Chloride (96-108) mmol/L Carbon Dioxide (22-29) mmol/L Anion Gap (12-20) BUN (9-16) mg/dL Creatinine (0.5-1.4) mg/dL Estim Creat Clear Calc Estimated GFR Random Glucose (60-115) mg/dL Calcium (8.4-10.2) mg/dL Total Bilirubin (0.0-1.0) mg/dL AST (5-37) U/L ALT (0-40) U/L Alkaline Phosphatase (39-117) U/L Troponin I High Sens (<3.5-35.0) ng/L B-Natriuretic Peptide (<100) pg/mL Total Protein (6.5-8.0) g/dL Albumin (3.5-5.0) g/dL Urine Color Yellow Urine Appearance Cloudy Urine pH 6.0 (5.0-9.0) Ur Specific [place] 1.015 (1.005-1.025) Urine Protein 300 (3+) H (Neg-Trace) mg/dL Urine Glucose (UA) Negative (Negative) mg/dL Urine Ketones Negative (Negative) mg/dL Urine Blood Moderate (2+) H (Negative) Urine Nitrite Negative (Negative) Ur Leukocyte Esterase Moderate (2+) H (Negative) COVID-19 ([facility]) (Negative) COVID-19 Clin Com Independent Interpretation I performed an independent interpretation of an: EKG (Ventricular rate of 85, OR normal, QT/QTC is slightly prolonged, QRS normal, EKG with normal sinus rhythm and an incomplete right bundle-branch block, QT prolonged. No signs of acute ischemia.), Plain X-Ray (XR/XR chest 2V IMPRESSION: Unremarkable chest exam.) and CT Scan Radiology Impression Discussion of test interpretation with radiology: I have reviewed the radiologist's reading. Core Measures AMI core measures followed: Yes Measure exclusions: not indicated Critical Care Time Critical Care Time Critical Care Time: No Discharge Plan Discharge Clinical Impression: UTI (urinary tract infection), CHF (congestive heart failure), Weakness Patient Disposition: Admitted As Inpatient Prescriptions: No Action losartan 50 mg tablet 1 tab PO DAILY Hold Instructions: Resume on 11/14/20. please check bmp in 2 days and start back losartan as per pcp. carisoprodol 350 mg tablet 2 tab PO TID prednisone 5 mg tablet 1 tab PO ONCE allopurinol 100 mg tablet 2 tab PO DAILY glipizide 2.5 mg tablet extended release 24hr 1 tab PO BID simvastatin 20 mg tablet 1 tab PO DAILY omeprazole 20 mg capsule,delayed release(DR/EC) 1 cap PO DAILY lorazepam 1 mg tablet 1 tab PO TID albuterol sulfate [Ventolin HFA] 90 mcg/actuation HFA aerosol inhaler 2 puff inhalation Q3-4H oxycodone [OxyContin] 20 mg tablet,oral only,ext.rel.12 hr 1 tab PO QPM aspirin 81 mg Tablet,Delayed Release (Dr/Ec) 81 mg PO DAILY Qty: 30 0RF amlodipine 5 mg tablet 5 mg PO DAILY Qty: 7 0RF cefpodoxime 200 mg tablet 200 mg PO BID Qty: 14 0RF Rx Instructions: must administer with a meal/food
[2022-07-19 17:22] LABS: D Dimer High Sensitivity < 150 NG/ML
[2022-07-19 19:44] LABS: Appearance Urine Cloudy; Color Urine Yellow; Glucose Urine UA Negative (Negative); Leukocyte Esterase Urine Moderate (2+) (Negative); Nitrite Urine Negative (Negative); Specific Gravity - Urine 1.015 (1.005-1.025); UMIC TRIGGER UACC YES; Urine Blood Moderate (2+) (Negative); Urine Ketones Negative (Negative); Urine Protein 300 (3+) mg/dL (Neg-Trace)
--- NOTE | 2022-07-19 19:56 | PC.NURSE ---
report received from CHAIM Herman Pt denies pain at this time, offers no other complaints other than wanted to go home. Urine sample collected from pt. JOSE M Ca in room speaking with patient
[2022-07-19 20:11] LABS: Bacteria Urine None Seen (None Seen); Hyaline Casts Urine 0-2 /LPF (0-2); Squamous Epithelial Cell Urine 0-2 /HPF (0-2); UACC Culture Trigger YES; WBC Urine >50 /HPF (0-5)
--- NOTE | 2022-07-19 20:19 | PC.NURSE ---
holding abx until cultures and lactic are complete
[2022-07-19] MEDS: cefTRIAXone sodium 1 GM in 0.9 % Sodium Chloride 50 ML IV (21:10)
[2022-07-19 21:26] VITALS: BP 135/92; PULSE 91; RESP 11; TEMP 37.2; O2SAT 96
--- NOTE | 2022-07-19 21:32 | PC.NURSE ---
All blood work complete, med rec done with patient . abx administered per JUN. Pt resting comfortably, denies pain at this time. Rowena texted Dr. Diaz for night medications
[2022-07-19 21:48] LABS: Troponin-I High Sensitivity 17.5 ng/L (<3.5-35.0)
--- NOTE | 2022-07-19 22:04 | P.HPHOSP_ITS ---
History of Present Illness Date of Service: 07/19/22 Chief Complaint: sob This is a 77-year-old male with past medical history of CVA, diabetes, sleep apnea noncompliant with CPAP, type 2 diabetes, presents the hospital with complaints of shortness of breath. Patient reports that he is chronically short of breath but has worsening shortness of breath for the past 4 days, has mild cough with no increased sputum production. Reports that he does have oxygen at home but does not usually use it but has had need to use a for the past few days. He reports orthopnea and PND. No lower extremity edema. Denies any fever, no chills, no chest pain, no palpitations, no abdominal pain, no nausea or vomiting, no diarrhea constipation, no urinary symptoms. On arrival to the ED patient hemodynamically stable EMS stated that patient was hypoxic but no recorded O2, patient is currently on 2 L of oxygen satting 95% Labs are significant for WBC count of 7.4, BNP of 254, troponin 15 initially, increased to 17.5 EKG showed normal sinus rhythm with a QTC of 492 in some evidence of incomplete left bundle branch block Chest x-ray shows unremarkable chest exam Patient was unable to tolerate chest CT Review of Systems Review of Systems: Yes all other systems are reviewed and are negative [facility] Medical History Chronic back pain CVA (cerebral vascular accident) Lung nodule Oxygen dependent Sleep apnea Social History Household Members: Spouse Housing: House Do you presently have visiting nurse or other home services: No Alcohol intake: current Alcohol intake frequency: holidays/special occasions only Patient Tobacco Use Status: Former Tobacco user Smoked in Last 30 Days: No Use of substances other than those prescribed or required for medical reasons: No Advance Directives: No Advance Directives Information Provided: No Nutrition Risks: No Nutritional Risk Current occupational status: retired Meds Allergies Allergy/AdvReac Type Severity Reaction Status Date / Time codeine [CODEINE] Allergy Intermediate RASH Verified 08/03/21 14:37 morphine [MORPHINE] Allergy Mild NAUSEA Verified 08/03/21 14:37 ibuprofen [From MOTRIN] Allergy Unknown NAUSEA Verified 08/03/21 14:37 Active Medications: Current Medications Pharmacy Consult (Consult Rx Perform Med Rec) 1 each MISCELLANE ONCE PRN PRN Reason: Consult order Home Medications Medication Instructions Recorded Confirmed Last Taken Type albuterol sulfate 90 mcg/actuation 2 puff inhalation Q3-4H PRN 11/09/20 07/19/22 07/17/22 History aerosol inhaler (Ventolin HFA) Shortness Of Breath allopurinol 100 mg tablet 2 tab PO DAILY 11/09/20 07/19/22 07/19/22 History carisoprodol 350 mg tablet 2 tab PO TID 11/09/20 07/19/22 07/18/22 History glipizide 2.5 mg tablet, extended 1 tab PO BID 11/09/20 07/19/22 07/19/22 History release 24 hr lorazepam 1 mg tablet 1 tab PO TID 11/09/20 07/19/22 07/18/22 History omeprazole 20 mg capsule,delayed 1 cap PO DAILY 11/09/20 07/19/22 07/18/22 History release oxycodone 20 mg tablet,crush 1 tab PO QPM 11/09/20 07/19/22 07/18/22 History resistant,extended release 12 hr (OxyContin) simvastatin 20 mg tablet 1 tab PO DAILY 11/09/20 07/19/22 07/18/22 History Physical Exam Vital Signs and Narrative: Vital Signs: Last Vital Signs Temp 98.9 F 07/19/22 21:26 Pulse 91 07/19/22 21:26 Resp 11 L 07/19/22 21:26 BP 135/92 H 07/19/22 21:26 Pulse Ox 96 07/19/22 21:26 O2 Del Method Nasal Cannula 07/19/22 21:26 Oxygen Flow Rate 2 07/19/22 17:00 BMI result Body Mass Index 41.8 Const: General: cooperative and no acute distress Orientation/consciousness: patient oriented x3 Eyes: General: appearance normal, both eyes and all related structures Resp: Other: Crackles bilaterally Effort & Inspection: normal respiratory effort Cardio: Rate: regular rate Rhythm: regular rhythm GI: Palpation (GI): Soft to palpation Auscultation: normal bowel sounds Skin: General skin exam: no rashes or lesions noted Neuro: General: patient oriented x3 Cognition (Neuro): normal cognition Extrem: Other: No lower extremity edema noted General: Yes normal to inspection and Yes no pedal edema Results Labs 07/19/22 16:09 07/19/22 16:09 Labs: Laboratory Results - last 24 hr 07/19/22 07/19/22 07/19/22 16:09 16:09 16:09 MCV 93.3 MCH 30.7 MCHC 32.9 RDW 13.5 Plt Count 213 MPV 10.4 Immature Gran % (Auto) 1.1 H Neut % (Auto) 67.8 Lymph % (Auto) 15.5 L [place] % (Auto) 11.0 Eos % (Auto) 3.8 Baso % (Auto) 0.8 Lymph # (Auto) 1.1 L [place] # (Auto) 0.8 Eos # (Auto) 0.3 Baso # (Auto) 0.1 Abs Immat Gran (auto) 0.08 H Absolute Neuts (auto) 5.0 Absolute Nucleated RBC 0.000 Nucleated RBC % (auto) 0.0 D-Dimer High Sensitivty Anion Gap 16 Estim Creat Clear Calc TNP Estimated GFR > 60 Random Glucose 140 H Calcium 9.1 Total Bilirubin 0.9 AST 18 ALT 17 Alkaline Phosphatase 164 H Troponin I High Sens B-Natriuretic Peptide 254 H Total Protein 6.8 Albumin 4.2 Urine Color Urine Appearance Urine pH Ur Specific [place] Urine Protein Urine Glucose (UA) Urine Ketones Urine Blood Urine Nitrite Ur Leukocyte Esterase Urine RBC Urine WBC Ur Squamous Epith Cells Urine Bacteria Hyaline Casts Urine Yeast COVID-19 ([facility]) COVID-19 Clin Com 07/19/22 07/19/22 07/19/22 16:09 17:05 17:05 MCV MCH MCHC RDW Plt Count MPV Immature Gran % (Auto) Neut % (Auto) Lymph % (Auto) [place] % (Auto) Eos % (Auto) Baso % (Auto) Lymph # (Auto) [place] # (Auto) Eos # (Auto) Baso # (Auto) Abs Immat Gran (auto) Absolute Neuts (auto) Absolute Nucleated RBC Nucleated RBC % (auto) D-Dimer High Sensitivty < 150 Anion Gap Estim Creat Clear Calc Estimated GFR Random Glucose Calcium Total Bilirubin AST ALT Alkaline Phosphatase Troponin I High Sens 15.0 B-Natriuretic Peptide Total Protein Albumin Urine Color Urine Appearance Urine pH Ur Specific [place] Urine Protein Urine Glucose (UA) Urine Ketones Urine Blood Urine Nitrite Ur Leukocyte Esterase Urine RBC Urine WBC Ur Squamous Epith Cells Urine Bacteria Hyaline Casts Urine Yeast COVID-19 ([facility]) Negative COVID-19 Clin Com See Note 07/19/22 07/19/22 19:39 21:06 MCV MCH MCHC RDW Plt Count MPV Immature Gran % (Auto) Neut % (Auto) Lymph % (Auto) [place] % (Auto) Eos % (Auto) Baso % (Auto) Lymph # (Auto) [place] # (Auto) Eos # (Auto) Baso # (Auto) Abs Immat Gran (auto) Absolute Neuts (auto) Absolute Nucleated RBC Nucleated RBC % (auto) D-Dimer High Sensitivty Anion Gap Estim Creat Clear Calc Estimated GFR Random Glucose Calcium Total Bilirubin AST ALT Alkaline Phosphatase Troponin I High Sens 17.5 B-Natriuretic Peptide Total Protein Albumin Urine Color Yellow Urine Appearance Cloudy Urine pH 6.0 Ur Specific [place] 1.015 Urine Protein 300 (3+) H Urine Glucose (UA) Negative Urine Ketones Negative Urine Blood Moderate (2+) H Urine Nitrite Negative Ur Leukocyte Esterase Moderate (2+) H Urine RBC 3-5 H Urine WBC >50 H Ur Squamous Epith Cells 0-2 Urine Bacteria None Seen Hyaline Casts 0-2 Urine Yeast Present COVID-19 ([facility]) COVID-19 Clin Com Imaging Radiologist's Impressions: Impressions Chest X-Ray 07/19/22 16:24 IMPRESSION: Unremarkable chest exam. Head CT 07/19/22 17:51 IMPRESSION: 1. No acute intracranial pathology. 2. Chronic large area of encephalomalacia in the posterior left parieto-occipital region. 3. Minimal mucosal thickening in the left sphenoid sinus. Assessment and Plan (1) Acute dyspnea: Status: Acute (2) Acute exacerbation of CHF (congestive heart failure): Status: Acute (3) Weakness: Status: Acute Plan 77-year-old with past medical history of KAREN noncompliant with CPAP, history of COPD? Per his comes into the hospital with complaints of shortness of breath # acute dyspnea - likely secondary to CHF exacerbation, COPD less likely, PE less likely - D-dimer negative, patient has elevated BNP, orthopnea PND, no increased cough or sputum production - will continue O2 support - treat CHF with Lasix, as below - monitor respiratory status # acute CHF exacerbation - has elevated BNP, orthopnea PND, increased dyspnea - echo done in 2020 shows normal ejection fraction - will obtain echocardiogram, strict I&O, low-sodium diet, daily weight - Lasix 40 b.i.d. IV - cardiology consulted # UTI - positive UA - will treat with IV antibiotics - follow cultures # weakness - likely multifactorial in the setting of UTI as well as CHF - treat as above - PT prior to discharge # KAREN - not compliant with CPAP - will ordr cpap at bedtime # DM - LDSSI - hold oral antihyperglyceimic - Diabetic diet # HLD - continue statin DVT ppx: heparin subq Given pt CHF needing lasix pt will require a min 2 nights inpatient hospital stay for further management and monitoring Time Spent With Patient Time: Total time managing care of this patient today ____ minutes. Quality Stroke Does the patient have a stroke diagnosis?: No VTE Prior VTE?: No VTE Risk Level:: Medical - moderate - high VTE Device Contraindication: Treatment Not Indicated VTE Drug Contraindication: N/A - Med Ordered
[2022-07-19 22:11] LABS: Lactic Acid 1.7 mmol/L (0.5-2.0)
[2022-07-19] MEDS: Heparin Sodium,Porcine 5,000 UNIT/ML VIAL 5000 UNIT SUBCUT (22:35)
[2022-07-19] MEDS: oxyCODONE HCl ER 10 MG TAB.ER.12H 20 MG PO (22:35)
[2022-07-19] MEDS: Furosemide 40 MG/4 ML VIAL IVPUSH (22:35)
[2022-07-19] MEDS: LORazepam 1 MG TABLET PO (22:35)
--- NOTE | 2022-07-19 22:42 | PC.NURSE ---
This RN spoke with pharmacy on the phone regarding pts Oxycontin. Pt has not taken his nighttime dose at this time, pharmacy instructed this RN to document medications unscheduled at this time
[2022-07-19 23:40] VITALS: BP 125/74; PULSE 89; RESP 13; TEMP 36.7; O2SAT 94
--- NOTE | 2022-07-20 04:52 | PC.NURSE ---
patient sleeping at this time, respirations even and unlabored, equal chest rise noted, skin pwd. no apparent distress. Continue plan of care to admit for CHF exacerbation
[2022-07-20] MEDS: Lidocaine 4 % Patch ADH..PATCH 1 PATCH TRANSDERMA ×2 (06:38→09:16)
[2022-07-20] MEDS: oxyCODONE HCl Immed Release 5 MG TABLET PO (06:39)
[2022-07-20] MEDS: Omeprazole 20 MG CAPSULE.DR PO (06:39)
--- NOTE | 2022-07-20 06:41 | PC.NURSE ---
pt medicated per mar
[2022-07-20 06:45] VITALS: BP 106/66; PULSE 95; RESP 16; O2SAT 97
[2022-07-20 06:50] LABS: Alanine Aminotransferase 17 U/L (0-40); Alkaline Phosphatase 150 U/L (39-117); Anion Gap 16 (12-20); Aspartate Amino Transferase 18 U/L (5-37); Bilirubin Total 0.8 mg/dL (0.0-1.0); Blood Urea Nitrogen 25 mg/dL (9-16); Calcium 9.1 mg/dL (8.4-10.2); Carbon Dioxide 25 mmol/L (22-29); Chloride 105 mmol/L (96-108); Creatinine Clr Calc Pharmacy 69.7; Estimated Glomerular Filt Rate 54; Glucose Random 118 mg/dL (60-115); Potassium 4.2 mmol/L (3.3-5.1); Sodium 142 mmol/L (135-145); Total Protein 6.5 g/dL (6.5-8.0)
--- NOTE | 2022-07-20 07:00 | CA_ITS ---
Transthoracic Echocardiogram Patient (Last, First, Middle): Zane Delgado J Gender: Male Date of : 1945 Age: 77 Procedure Date: 07/20/2022 Procedure Type: Transthoracic Echocardiogram Location: S3E Height: 177.8 cm Weight: 136.08 kg BSA: 2.48 m2 Heart Rate: 88 bpm BP: 106 / 66 mmHg [employer] Machine: SB Referring MD: Steve Diaz MD Symptoms: CHF Study Quality: Technically Difficult ECG Rhythm: Sinus Conclusions: - The left ventricular systolic function is moderately decreased. The calculated ejection fraction is 32% by biplane method. - There is severe septal asymmetric hypertrophy. - There is moderate posterior mitral annular calcification. Findings Procedure Information Contrast agent, definity, is being given per protocol without apparent complications. The quality of the study was technically difficult. The study quality is limited by patients body habitus. Left Ventricle Normal left ventricular cavity size. There is mildly increased left ventricular wall thickness. The left ventricular systolic function is moderately decreased. The calculated ejection fraction is 32% by biplane method. There is moderate global hypokinesis. There is paradoxical septal motion consistent with a left bundle branch block. E/E prime ratio is between 8 and 15 consistent with indeterminate filling pressures. Evidence suggests grade I (mild) diastolic dysfunction. There is severe septal asymmetric hypertrophy. Right Ventricle Normal right ventricular cavity size. There is mildly decreased right ventricular systolic function. Atria Both atria are normal in size. Aortic Valve The aortic valve was not well visualized. There is no aortic valve stenosis. There is no aortic valve regurgitation. Mitral Valve There is moderate posterior mitral annular calcification. There is no mitral valve regurgitation. There is no mitral valve stenosis. Pulmonic Valve The pulmonic valve was not well visualized. Tricuspid Valve There is trace tricuspid valve regurgitation. Tricuspid regurgitation envelope is inadequate for calculation of right ventricular systolic pressure. Great Vessels The asc aorta is normal in size. Venous The inferior vena cava is normal in size and collapses greater than 50% with inspiration. Pericardium/Pleural There is no evidence of pericardial effusion. Prior Study Comparison Changes noted compared to prior study dated: 11/12/2020. Decrease in LVEF. Measurements 2D Linear Measurements IVSd: 1.60 0.6-0.9/0.6-1.0 cm LVIDd: 4.00 3.9-5.3/4.2-5.9 cm LVIDd Index: 1.61 2.4-3.2/2.2-3.1 cm/m2 LVIDs: 3.18 2.0-3.6 cm LVPWd: 1.09 0.7-1.1 cm LA Diam: 2.90 2.7-3.8/3.0-4.0 cm LAIDs Index: 1.17 1.5-2.3 cm/m2 LV Mass: 244.84 67-162/88-224 g LV Mass Index: 98.72 43-95/49-115 g/m2 LVOT Diam: 2.10 3.0+(-)1.3 cm 2D Systolic Function EF 4C: 20.70 >55% EF 2C: 36.10 >55% EF BiP: 32.00 >55% Mitral Valve MV Pk E: 0.63 MV PK A: 1.06 MV Decel Time: 165.00 E/A: 0.60 E'Lateral: 5.55 E'Medial: 5.22 E/E' Med: 12.10 E/E' Lat: 11.40 PHT: 48.00 MVA PHT: 4.58 Decel [place]: 3.84 Aortic Valve AoV Pk Neel: 1.19 AoV Pk Grad: 6.00 DARI: 2.48 LVOT LVOT Pk Neel: 0.90 LVOT Mn Neel: 0.62 LVOT VTI: 0.16 LVOT Pk Grad: 3.00 LVOT Mn Grad: 2.00 LVOT Diam: 2.10 LVOT Area: 3.46 Diastolic Function MV Pk E: 0.63 MV Pk A: 1.06 E/A: 0.60 E'Medial: 5.22 E/E' Med: 12.10 E' Laterial: 5.55 E/E' Lat: 11.40 Right Ventricle TAPSE (mm): 13.70 TVS' Neel: 13.10 Tricuspid Valve RA Press: 8.00 Great Vessels Aorta Sinus of Valsalva: 3.50 2.0-3.5 cm Ao Asc: 3.50 2.1-3.4 cm Updated in Other Vendor System with Status of Final Iglesia Mcwilliams MD electronically signed on 07/20/2022 4:35:23 PM with status of Final
--- NOTE | 2022-07-20 07:28 | PC.NURSE ---
Called floor for report, RN not available, will call back.
[2022-07-20 08:00] VITALS: BP 143/67; PULSE 99; RESP 18; TEMP 36.1; O2SAT 93
--- NOTE | 2022-07-20 08:34 | PHA.MEDREC ---
Addendum entered by Latisha Mckeon RPh 07/20/22 19:08: pt is recanting story. states he takes 30 mg bid and no 20 mg tab Original Note: Pharmacy Consult ? Medication Reconciliation Pharmacy has completed the medication reconciliation. Spoke to patient, clarified that he takes 30mg Oxycontin in the morning and 20mg around bedtime, pt himself states he is trying to cut back by not taking the 30mg BID as prescribed
[2022-07-20] MEDS: carisoprodoL 350 MG TABLET 700 MG PO ×3 (09:15→21:15)
[2022-07-20] MEDS: amLODIPine Besylate 5 MG TABLET PO (09:16)
[2022-07-20] MEDS: allopurinoL 100 MG TABLET 200 MG PO (09:16)
[2022-07-20] MEDS: Heparin Sodium,Porcine 5,000 UNIT/ML VIAL 5000 UNIT SUBCUT ×2 (09:16→21:16)
[2022-07-20] MEDS: 0.9 % Sodium Chloride Flush 3 ML SYRINGE IVFLUSH ×3 (09:16→23:20)
[2022-07-20] MEDS: Atorvastatin Calcium 10 MG TABLET PO (09:16)
--- NOTE | 2022-07-20 09:37 | PM.CNCAR ---
History of Present Illness History of Present Illness Date of Service: 07/20/22 Chief complaint: CHF exacerbation Narrative: This is a cardiology consultation regarding shortness of breath. Patient denies any prior history of cardiac issues including coronary artery disease or myocardial infarction or cardiomyopathy or in fact any cardiac issues whatsoever in the past. Per admission H and P, admitted for shortness of breath. However, he states that he is rather here for unsteady gait. Additionally, some shortness of breath which is worsening per him. He gets short of breath even walking short distances. Comorbidities include obstructive sleep apnea but not compliant with CPAP, diabetes, history of stroke. Remote history of smoking. Otherwise, denies any anginal-type symptoms or palpitations or leg swelling or other cardiac symptoms. Review of Systems Review of Systems: Yes all other systems are reviewed and are negative Constitutional: Constitutional: Reports as per HPI and Reports no additional constitutional complaints Eyes: Eyes: Reports as per HPI and Denies no additional eye complaints ENT: Denies system reviewed and no additional complaints, except as documented and Reports as per HPI Cardiovascular: Cardiovascular: Reports as per HPI, Reports no additional cardiovascular complaints, Denies acrocyanosis, Denies cool extremities, Denies chest pain, Denies leg edema, Denies lightheadedness, Denies palpitations and Reports dyspnea Respiratory: Respiratory: Reports as per HPI, Denies no additional respiratory complaints and Reports dyspnea Gastrointestinal: Gastrointestinal: Reports as per HPI and Denies no additional gastrointestinal complaints Genitourinary: Genitourinary: Reports no additional male genitourinary complaints and Reports as per HPI Musculoskeletal: Musculoskeletal: Reports no additional musculoskeletal complaints and Reports as per HPI Integumentary/Breasts: Skin/Breast: Reports system reviewed and no additional complaints, except as docu Neurologic: Reports system reviewed and no additional complaints, except as documented and Reports as per HPI Psychiatric: Psychiatric: Reports no additional psychiatric complaints and Reports as per HPI Endocrine: Endocrine: Reports no additional endocrine complaints, Reports as per HPI and Denies palpitations Hematologic/Lymphatic: Hematologic/Lymphatic: Reports no additional hematologic/lymphatic complaints and Reports as per HPI Allergic/Immunologic: Allergic/Immunologic: Reports no additional allergic/immunologic complaints and Reports as per HPI PMFSH Past Medical History Medical History Chronic back pain CVA (cerebral vascular accident) Lung nodule Oxygen dependent Sleep apnea Family History Family History (Updated 07/20/22 @ 09:41 by Iglesia Mcwilliams MD) Father Cirrhosis Mother Myocardial infarction Social History Social History Household Members: Spouse Housing: House Do you presently have visiting nurse or other home services: No Alcohol intake: current Alcohol intake frequency: holidays/special occasions only Patient Tobacco Use Status: Former Tobacco user Current occupational status: retired Meds Allergies Allergy/AdvReac Type Severity Reaction Status Date / Time codeine [CODEINE] Allergy Intermediate RASH Verified 08/03/21 14:37 morphine [MORPHINE] Allergy Mild NAUSEA Verified 08/03/21 14:37 ibuprofen [From MOTRIN] Allergy Unknown NAUSEA Verified 08/03/21 14:37 Active Medications: Current Medications Acetaminophen (Acetaminophen 325 Mg Tablet) 650 mg PO Q6H PRN PRN Reason: Pain, Mild (Pain Scale 1-3) Albuterol Sulfate (Albuterol Sulfate 90 Mcg 8 Gm Inhaler) 2 puff INHALE Q4H PRN PRN Reason: Shortness of Breath Allopurinol (Allopurinol 100 Mg Tablet) 200 mg PO DAILY [facility] Last Admin: 07/20/22 09:16 Dose: 200 mg Amlodipine Besylate (Amlodipine Besylate 5 Mg Tablet) 5 mg PO DAILY [facility]; Protocol Last Admin: 07/20/22 09:16 Dose: 5 mg Atorvastatin Calcium (Atorvastatin Calcium 10 Mg Tablet) 10 mg PO DAILY [facility] Last Admin: 07/20/22 09:16 Dose: 10 mg Carisoprodol (Carisoprodol 350 Mg Tablet) 700 mg PO TID AISHWARYA Last Admin: 07/20/22 09:15 Dose: 700 mg Albuterol Sulfate 2.5 mg/ (Ipratropium [place] 0.5 mg) 0 mg INHALE RQ4H WHILE AWAKE PRN PRN Reason: Shortness of Breath/Wheezing Docusate Sodium (Docusate Sodium 100 Mg Capsule) 100 mg PO DAILY PRN PRN Reason: Constipation Furosemide (Furosemide 40 Mg/4 Ml Vial) 40 mg IVPUSH Q12H AISHWARYA; Protocol Last Admin: 07/19/22 22:35 Dose: 40 mg Heparin Sodium (Porcine) (Heparin Sodium,Porcine 5,000 Unit/Ml Vial) 5,000 unit SUBCUT Q12H AISHWARYA Last Admin: 07/20/22 09:16 Dose: 5,000 unit Ceftriaxone Sodium 1 gm/ (Sodium Chloride) 50 mls @ 100 mls/hr IV Q24H [facility] Lidocaine (Lidocaine 4 % Patch Adh..Patch) 1 patch TRANSDERMA DAILY [facility]; Protocol Last Admin: 07/20/22 09:16 Dose: 1 patch Lorazepam (Lorazepam 1 Mg Tablet) 1 mg PO TID PRN PRN Reason: Anxiety Last Admin: 07/19/22 22:35 Dose: 1 mg Omeprazole (Omeprazole 20 Mg Capsule.Dr) 20 mg PO DAILY@0630 [facility] Last Admin: 07/20/22 06:39 Dose: 20 mg Ondansetron HCl (Ondansetron Hcl 4 Mg/2 Ml Vial) 4 mg IVPUSH Q8H PRN PRN Reason: Nausea and Vomiting Oxycodone HCl (Oxycodone Hcl Er 10 Mg Tab.Er.12h) 20 mg PO DAILY@2100 [facility] Last Admin: 07/19/22 22:35 Dose: 20 mg Pharmacy Consult (Consult Rx Perform Med Rec) 1 each MISCELLANE ONCE PRN PRN Reason: Consult order Sodium Chloride (0.9 % Sodium Chloride Flush 3 Ml Syringe) 3 ml IVFLUSH QSHIFT [facility] Last Admin: 07/20/22 09:16 Dose: 3 ml Home Medications Medication Instructions Recorded Confirmed Last Taken Type albuterol sulfate 90 mcg/actuation 2 puff inhalation Q3-4H PRN 11/09/20 07/19/22 07/17/22 History aerosol inhaler (Ventolin HFA) Shortness Of Breath allopurinol 100 mg tablet 2 tab PO DAILY 11/09/20 07/19/22 07/19/22 History carisoprodol 350 mg tablet 2 tab PO TID 11/09/20 07/19/22 07/18/22 History glipizide 2.5 mg tablet, extended 1 tab PO BID 11/09/20 07/19/22 07/19/22 History release 24 hr lorazepam 1 mg tablet 1 tab PO TID 11/09/20 07/19/22 07/18/22 History omeprazole 20 mg capsule,delayed 1 cap PO DAILY@0630 11/09/20 07/20/22 07/18/22 History release oxycodone 20 mg tablet,crush 1 tab PO BEDTIME 11/09/20 07/20/22 07/18/22 History resistant,extended release 12 hr (OxyContin) simvastatin 20 mg tablet 1 tab PO DAILY 11/09/20 07/19/22 07/18/22 History losartan 100 mg tablet 100 mg PO DAILY@0630 07/20/22 07/20/22 Unknown History oxycodone 30 mg tablet,crush 30 mg PO DAILY 07/20/22 07/20/22 Unknown History resistant,extended release 12 hr (OxyContin) Physical Exam Vital Signs: Vital Signs: Last Vital Signs Temp 97 F 07/20/22 08:00 Pulse 99 07/20/22 08:00 Resp 18 07/20/22 08:00 BP 143/67 H 07/20/22 08:00 Pulse Ox 93 07/20/22 08:00 O2 Del Method Room Air 07/20/22 08:00 O2 Flow Rate 1 07/19/22 23:40 Oxygen Flow Rate 2 07/19/22 17:00 BMI result Body Mass Index 41.8 Const: General: comfortable and no acute distress Orientation/consciousness: patient oriented x3 HEENT: Other: Unremarkable Head: Yes normal to inspection Neck: Neck: Yes normal visual inspection Chest: Chest palpation & inspection: normal inspection of the chest Resp: Auscultation: clear to auscultation bilaterally Cardio: Palpation: normal PMI Heart sounds: S1 normal heart sound present, S2 normal heart sound present, no gallops, no murmurs and no rubs GI: Palpation (GI): Soft to palpation Back/Spine/Pelvis: Other: unremarkable Skin: General skin exam: no rashes or lesions noted Neuro: General: patient oriented x3 Extrem: General: Yes normal to inspection Psych: Mental Status: mental status grossly normal Objective Labs and Meds 07/19/22 16:09 07/20/22 05:21 Lab results: Laboratory Results - last 24 hr 07/19/22 07/19/22 07/19/22 16:09 16:09 16:09 WBC 7.4 RBC 5.08 Hgb 15.6 Hct 47.4 MCV 93.3 MCH 30.7 MCHC 32.9 RDW 13.5 Plt Count 213 MPV 10.4 Immature Gran % (Auto) 1.1 H Neut % (Auto) 67.8 Lymph % (Auto) 15.5 L [place] % (Auto) 11.0 Eos % (Auto) 3.8 Baso % (Auto) 0.8 Lymph # (Auto) 1.1 L [place] # (Auto) 0.8 Eos # (Auto) 0.3 Baso # (Auto) 0.1 Abs Immat Gran (auto) 0.08 H Absolute Neuts (auto) 5.0 Absolute Nucleated RBC 0.000 Nucleated RBC % (auto) 0.0 D-Dimer High Sensitivty Sodium 139 Potassium 4.4 Chloride 104 Carbon Dioxide 23 Anion Gap 16 BUN 22 H Creatinine 1.17 Estim Creat Clear Calc TNP Estimated GFR > 60 Random Glucose 140 H Lactic Acid Calcium 9.1 Total Bilirubin 0.9 AST 18 ALT 17 Alkaline Phosphatase 164 H Troponin I High Sens B-Natriuretic Peptide 254 H Total Protein 6.8 Albumin 4.2 Urine Color Urine Appearance Urine pH Ur Specific [place] Urine Protein Urine Glucose (UA) Urine Ketones Urine Blood Urine Nitrite Ur Leukocyte Esterase Urine RBC Urine WBC Ur Squamous Epith Cells Urine Bacteria Hyaline Casts Urine Yeast COVID-19 ([facility]) [employer] 07/19/22 07/19/22 07/19/22 16:09 17:05 17:05 WBC RBC Hgb Hct MCV MCH MCHC RDW Plt Count MPV Immature Gran % (Auto) Neut % (Auto) Lymph % (Auto) [place] % (Auto) Eos % (Auto) Baso % (Auto) Lymph # (Auto) [place] # (Auto) Eos # (Auto) Baso # (Auto) Abs Immat Gran (auto) Absolute Neuts (auto) Absolute Nucleated RBC Nucleated RBC % (auto) D-Dimer High Sensitivty < 150 Sodium Potassium Chloride Carbon Dioxide Anion Gap BUN Creatinine Estim Creat Clear Calc Estimated GFR Random Glucose Lactic Acid Calcium Total Bilirubin AST ALT Alkaline Phosphatase Troponin I High Sens 15.0 B-Natriuretic Peptide Total Protein Albumin Urine Color Urine Appearance Urine pH Ur Specific [place] Urine Protein Urine Glucose (UA) Urine Ketones Urine Blood Urine Nitrite Ur Leukocyte Esterase Urine RBC Urine WBC Ur Squamous Epith Cells Urine Bacteria Hyaline Casts Urine Yeast COVID-19 ([facility]) Negative [employer] See Note 07/19/22 07/19/22 07/19/22 19:39 21:06 21:43 WBC RBC Hgb Hct MCV MCH MCHC RDW Plt Count MPV Immature Gran % (Auto) Neut % (Auto) Lymph % (Auto) [place] % (Auto) Eos % (Auto) Baso % (Auto) Lymph # (Auto) [place] # (Auto) Eos # (Auto) Baso # (Auto) Abs Immat Gran (auto) Absolute Neuts (auto) Absolute Nucleated RBC Nucleated RBC % (auto) D-Dimer High Sensitivty Sodium Potassium Chloride Carbon Dioxide Anion Gap BUN Creatinine Estim Creat Clear Calc Estimated GFR Random Glucose Lactic Acid 1.7 Calcium Total Bilirubin AST ALT Alkaline Phosphatase Troponin I High Sens 17.5 B-Natriuretic Peptide Total Protein Albumin Urine Color Yellow Urine Appearance Cloudy Urine pH 6.0 Ur Specific [place] 1.015 Urine Protein 300 (3+) H Urine Glucose (UA) Negative Urine Ketones Negative Urine Blood Moderate (2+) H Urine Nitrite Negative Ur Leukocyte Esterase Moderate (2+) H Urine RBC 3-5 H Urine WBC >50 H Ur Squamous Epith Cells 0-2 Urine Bacteria None Seen Hyaline Casts 0-2 Urine Yeast Present COVID-19 ([facility]) [email or web address] 07/20/22 05:21 WBC RBC Hgb Hct MCV MCH MCHC RDW Plt Count MPV Immature Gran % (Auto) Neut % (Auto) Lymph % (Auto) [place] % (Auto) Eos % (Auto) Baso % (Auto) Lymph # (Auto) [place] # (Auto) Eos # (Auto) Baso # (Auto) Abs Immat Gran (auto) Absolute Neuts (auto) Absolute Nucleated RBC Nucleated RBC % (auto) D-Dimer High Sensitivty Sodium 142 Potassium 4.2 Chloride 105 Carbon Dioxide 25 Anion Gap 16 BUN 25 H Creatinine 1.29 Estim Creat Clear Calc 69.7 Estimated GFR 54 Random Glucose 118 H Lactic Acid Calcium 9.1 Total Bilirubin 0.8 AST 18 ALT 17 Alkaline Phosphatase 150 H Troponin I High Sens B-Natriuretic Peptide Total Protein 6.5 Albumin 4.0 Urine Color Urine Appearance Urine pH Ur Specific [place] Urine Protein Urine Glucose (UA) Urine Ketones Urine Blood Urine Nitrite Ur Leukocyte Esterase Urine RBC Urine WBC Ur Squamous Epith Cells Urine Bacteria Hyaline Casts Urine Yeast COVID-19 ([facility]) [email or web address] Com ECG Interpretation: EKG with sinus rhythm at 85/Min; incomplete left bundle-branch block pattern and nonspecific ST-T changes. Corrected QT at 492 milliseconds. QRS wider than prior EKG. Imaging Radiologist's impression: Impressions Chest X-Ray 07/19/22 16:24 IMPRESSION: Unremarkable chest exam. Head CT 07/19/22 17:51 IMPRESSION: 1. No acute intracranial pathology. 2. Chronic large area of encephalomalacia in the posterior left parieto-occipital region. 3. Minimal mucosal thickening in the left sphenoid sinus. Assessment and Plan (1) Acute exacerbation of CHF (congestive heart failure): Status: Acute Plan Cardiac BNP is 254. A prior value from 2020 was 59. Even prior to that, 19. High sensitive troponin within normal limits. In 2020, they were elevated. Echocardiogram from 2020 with LVEF of 55-60%, moderate LVH. Severe mitral annular calcification. Overall, acute on chronic shortness of breath with exertion. Clinically, not overtly volume overloaded. However, slight elevation BNP. Will get an echocardiogram as it has been almost 2 years since the last study. No need for aggressive diuretics. Will follow up with you. Time Spent With Patient Time: Total time managing care of this patient today 75 minutes. Procedures Date of Service Date of Service: 07/20/22
[2022-07-20] MEDS: Furosemide 40 MG/4 ML VIAL IVPUSH ×2 (10:37→23:17)
--- NOTE | 2022-07-20 11:34 | P.PNIM_ITS ---
Subjective Subjective Date of Service: 07/20/22 Physical Exam Vital Signs: Vital Signs: Last Vital Signs Temp 97 F 07/20/22 08:00 Pulse 99 07/20/22 08:00 Resp 18 07/20/22 08:00 BP 143/67 H 07/20/22 08:00 Pulse Ox 93 07/20/22 08:00 O2 Del Method Room Air 07/20/22 08:00 O2 Flow Rate 1 07/19/22 23:40 Oxygen Flow Rate 2 07/19/22 17:00 BMI result Body Mass Index 41.8 Objective Data Active Medications Acetaminophen (Acetaminophen 325 Mg Tablet) 650 mg PO Q6H PRN PRN Reason: Pain, Mild (Pain Scale 1-3) Albuterol Sulfate (Albuterol Sulfate 90 Mcg 8 Gm Inhaler) 2 puff INHALE Q4H PRN PRN Reason: Shortness of Breath Allopurinol (Allopurinol 100 Mg Tablet) 200 mg PO DAILY [facility] Last Admin: 07/20/22 09:16 Dose: 200 mg Documented By: WATSON Amlodipine Besylate (Amlodipine Besylate 5 Mg Tablet) 5 mg PO DAILY [facility]; Protocol Last Admin: 07/20/22 09:16 Dose: 5 mg Documented By: WATSON Atorvastatin Calcium (Atorvastatin Calcium 10 Mg Tablet) 10 mg PO DAILY [facility] Last Admin: 07/20/22 09:16 Dose: 10 mg Documented By: WATSON Carisoprodol (Carisoprodol 350 Mg Tablet) 700 mg PO TID [facility] Last Admin: 07/20/22 09:15 Dose: 700 mg Documented By: WATSON Albuterol Sulfate 2.5 mg/ (Ipratropium Apex 0.5 mg) 0 mg INHALE RQ4H WHILE AWAKE PRN PRN Reason: Shortness of Breath/Wheezing Docusate Sodium (Docusate Sodium 100 Mg Capsule) 100 mg PO DAILY PRN PRN Reason: Constipation Furosemide (Furosemide 40 Mg/4 Ml Vial) 40 mg IVPUSH Q12H [facility]; Protocol Last Admin: 07/20/22 10:37 Dose: 40 mg Documented By: WATSON Heparin Sodium (Porcine) (Heparin Sodium,Porcine 5,000 Unit/Ml Vial) 5,000 unit SUBCUT Q12H [facility] Last Admin: 07/20/22 09:16 Dose: 5,000 unit Documented By: WATSON Ceftriaxone Sodium 1 gm/ (Sodium Chloride) 50 mls @ 100 mls/hr IV Q24H [facility] Lidocaine (Lidocaine 4 % Patch Adh..Patch) 1 patch TRANSDERMA DAILY [facility]; Protocol Last Admin: 07/20/22 09:16 Dose: 1 patch Documented By: WATSON Lorazepam (Lorazepam 1 Mg Tablet) 1 mg PO TID PRN PRN Reason: Anxiety Last Admin: 07/19/22 22:35 Dose: 1 mg Documented By: ERNESTO Omeprazole (Omeprazole 20 Mg Capsule.Dr) 20 mg PO DAILY@0630 [facility] Last Admin: 07/20/22 06:39 Dose: 20 mg Documented By: PRUDENCIO Ondansetron HCl (Ondansetron Hcl 4 Mg/2 Ml Vial) 4 mg IVPUSH Q8H PRN PRN Reason: Nausea and Vomiting Oxycodone HCl (Oxycodone Hcl Er 10 Mg Tab.Er.12h) 20 mg PO DAILY@2100 [facility] Last Admin: 07/19/22 22:35 Dose: 20 mg Documented By: ERNESTO Comments: unscheduled, pharmacy advised this RN to document as such, see nursing note Pharmacy Consult (Consult Rx Perform Med Rec) 1 each MISCELLANE ONCE PRN PRN Reason: Consult order Sodium Chloride (0.9 % Sodium Chloride Flush 3 Ml Syringe) 3 ml IVFLUSH QSHIFT [facility] Last Admin: 07/20/22 09:16 Dose: 3 ml Documented By: WATSON Labs 07/19/22 16:09 07/20/22 05:21 Labs: Laboratory Results - last 24 hr 07/19/22 07/19/22 07/19/22 16:09 16:09 16:09 MCV 93.3 MCH 30.7 MCHC 32.9 RDW 13.5 Plt Count 213 MPV 10.4 Immature Gran % (Auto) 1.1 H Neut % (Auto) 67.8 Lymph % (Auto) 15.5 L [place] % (Auto) 11.0 Eos % (Auto) 3.8 Baso % (Auto) 0.8 Lymph # (Auto) 1.1 L [place] # (Auto) 0.8 Eos # (Auto) 0.3 Baso # (Auto) 0.1 Abs Immat Gran (auto) 0.08 H Absolute Neuts (auto) 5.0 Absolute Nucleated RBC 0.000 Nucleated RBC % (auto) 0.0 D-Dimer High Sensitivty Anion Gap 16 Estim Creat Clear Calc TNP Estimated GFR > 60 Random Glucose 140 H Lactic Acid Calcium 9.1 Total Bilirubin 0.9 AST 18 ALT 17 Alkaline Phosphatase 164 H Troponin I High Sens B-Natriuretic Peptide 254 H Total Protein 6.8 Albumin 4.2 Urine Color Urine Appearance Urine pH Ur Specific [place] Urine Protein Urine Glucose (UA) Urine Ketones Urine Blood Urine Nitrite Ur Leukocyte Esterase Urine RBC Urine WBC Ur Squamous Epith Cells Urine Bacteria Hyaline Casts Urine Yeast COVID-19 ([facility]) COVID-19 Clin Com 07/19/22 07/19/22 07/19/22 16:09 17:05 17:05 MCV MCH MCHC RDW Plt Count MPV Immature Gran % (Auto) Neut % (Auto) Lymph % (Auto) [place] % (Auto) Eos % (Auto) Baso % (Auto) Lymph # (Auto) [place] # (Auto) Eos # (Auto) Baso # (Auto) Abs Immat Gran (auto) Absolute Neuts (auto) Absolute Nucleated RBC Nucleated RBC % (auto) D-Dimer High Sensitivty < 150 Anion Gap Estim Creat Clear Calc Estimated GFR Random Glucose Lactic Acid Calcium Total Bilirubin AST ALT Alkaline Phosphatase Troponin I High Sens 15.0 B-Natriuretic Peptide Total Protein Albumin Urine Color Urine Appearance Urine pH Ur Specific [place] Urine Protein Urine Glucose (UA) Urine Ketones Urine Blood Urine Nitrite Ur Leukocyte Esterase Urine RBC Urine WBC Ur Squamous Epith Cells Urine Bacteria Hyaline Casts Urine Yeast COVID-19 ([facility]) Negative COVID-19 Clin Com See Note 07/19/22 07/19/22 07/19/22 19:39 21:06 21:43 MCV MCH MCHC RDW Plt Count MPV Immature Gran % (Auto) Neut % (Auto) Lymph % (Auto) [place] % (Auto) Eos % (Auto) Baso % (Auto) Lymph # (Auto) [place] # (Auto) Eos # (Auto) Baso # (Auto) Abs Immat Gran (auto) Absolute Neuts (auto) Absolute Nucleated RBC Nucleated RBC % (auto) D-Dimer High Sensitivty Anion Gap Estim Creat Clear Calc Estimated GFR Random Glucose Lactic Acid 1.7 Calcium Total Bilirubin AST ALT Alkaline Phosphatase Troponin I High Sens 17.5 B-Natriuretic Peptide Total Protein Albumin Urine Color Yellow Urine Appearance Cloudy Urine pH 6.0 Ur Specific [place] 1.015 Urine Protein 300 (3+) H Urine Glucose (UA) Negative Urine Ketones Negative Urine Blood Moderate (2+) H Urine Nitrite Negative Ur Leukocyte Esterase Moderate (2+) H Urine RBC 3-5 H Urine WBC >50 H Ur Squamous Epith Cells 0-2 Urine Bacteria None Seen Hyaline Casts 0-2 Urine Yeast Present COVID-19 ([facility]) COVID-19 Clin Com 07/20/22 05:21 MCV MCH MCHC RDW Plt Count MPV Immature Gran % (Auto) Neut % (Auto) Lymph % (Auto) [place] % (Auto) Eos % (Auto) Baso % (Auto) Lymph # (Auto) [place] # (Auto) Eos # (Auto) Baso # (Auto) Abs Immat Gran (auto) Absolute Neuts (auto) Absolute Nucleated RBC Nucleated RBC % (auto) D-Dimer High Sensitivty Anion Gap 16 Estim Creat Clear Calc 69.7 Estimated GFR 54 Random Glucose 118 H Lactic Acid Calcium 9.1 Total Bilirubin 0.8 AST 18 ALT 17 Alkaline Phosphatase 150 H Troponin I High Sens B-Natriuretic Peptide Total Protein 6.5 Albumin 4.0 Urine Color Urine Appearance Urine pH Ur Specific [place] Urine Protein Urine Glucose (UA) Urine Ketones Urine Blood Urine Nitrite Ur Leukocyte Esterase Urine RBC Urine WBC Ur Squamous Epith Cells Urine Bacteria Hyaline Casts Urine Yeast COVID-19 ([facility]) COVID-19 Clin Com Microbiology Microbiology Results: Microbiology 07/19/22 20:13 Urine Culture - Preliminary Urine clean catch - Urine arambula top Culture too young to evaluate. Assessment and Plan (1) Acute exacerbation of CHF (congestive heart failure): Status: Acute Plan 77-year-old with past medical history of KAREN noncompliant with CPAP, history of COPD?? Per his comes into the hospital with complaints of shortness of breath Acute dyspnea possibly secondary to HFpEF likely secondary to CHF exacerbation, COPD less likely, PE less likely D-dimer negative, patient has elevated BNP, orthopnea PND, no increased cough or sputum production will continue O2 support treat CHF with Lasix echo done in 2020 shows normal ejection fraction will obtain echocardiogram, strict I&O, low-sodium diet, daily weight Lasix 40 b.i.d. IV cardiology consulted UTI Rocephin follow cx KAREN not compliant with CPAP DM ss, ada diet HLD continue statin DVT ppx: heparin subq Attending Dr. Gastelum continued hospital stay for further management and monitoring of CHF Time Spent With Patient Time: Total time managing care of this patient today ____ minutes. Quality Stroke Does the patient have a stroke diagnosis?: No VTE Prior VTE?: No VTE Risk Level:: Medical - moderate - high VTE Device Contraindication: Treatment Not Indicated VTE Drug Contraindication: N/A - Med Ordered
[2022-07-20 15:33] VITALS: BP 130/71; PULSE 94; RESP 18; TEMP 36.5; O2SAT 93
--- NOTE | 2022-07-20 15:45 | MHC.CM.PN ---
CM MET WITH PT AND HIS AT BEDSIDE PT LIVES AT HOME WITH HIS , DAUGHTER, SON, SONS , AND 3 GRANDSONS ONE OF THE GRANDSONS [employer] AD[employer] PT HAS A CANE, O2 PRN, AND A CPAP, HE SAYS HE HAS NOT USED THE CPAP FOR YEARS BECAUSE THEY WERE UNABLE TO FIT THE MASK PROPERLY TO HIS FACE SO IT NEVER WORKED PT SAYS HE DID A HCP WITH HIS PCP, COPY REQUESTED HE IS [facility] PCP: OSMAN HINTON IMM DELIVERED CURRENT DC PLAN IS HOME WITH [employer]UMP[employer] OF [employer] SERVICES PT AND STATE THEY DO NOT NEED [facility] TO TRANSPORT
[2022-07-20 19:47] VITALS: BP 151/78; PULSE 88; RESP 18; TEMP 36.3; O2SAT 91
[2022-07-20] MEDS: cefTRIAXone sodium 1 GM in 0.9 % Sodium Chloride 50 ML IV (21:14)
[2022-07-20] MEDS: oxyCODONE HCl ER 10 MG TAB.ER.12H 30 MG PO (21:23)
[2022-07-21] MEDS: LORazepam 1 MG TABLET PO (03:23)
[2022-07-21] MEDS: Albuterol Sulfate 90 MCG 8 GM INHALER 2 PUFF INHALE (03:37)
[2022-07-21 03:41] VITALS: RESP 95; O2SAT 95
[2022-07-21 04:00] VITALS: BP 156/92; PULSE 85; RESP 19; TEMP 36.5; O2SAT 99
[2022-07-21] MEDS: Omeprazole 20 MG CAPSULE.DR PO (06:01)
[2022-07-21 07:17] LABS: Anion Gap 18 (12-20); Blood Urea Nitrogen 40 mg/dL (9-16); Calcium 9.2 mg/dL (8.4-10.2); Carbon Dioxide 24 mmol/L (22-29); Chloride 103 mmol/L (96-108); Estimated Glomerular Filt Rate 35; Glucose Random 143 mg/dL (60-115); Potassium 4.2 mmol/L (3.3-5.1); Sodium 141 mmol/L (135-145)
[2022-07-21 07:59] VITALS: BP 114/60; PULSE 100; RESP 18; TEMP 36.3; O2SAT 94
[2022-07-21] MEDS: amLODIPine Besylate 5 MG TABLET PO (08:29)
[2022-07-21] MEDS: oxyCODONE HCl ER 10 MG TAB.ER.12H 30 MG PO (08:29)
[2022-07-21] MEDS: carisoprodoL 350 MG TABLET 700 MG PO (08:30)
[2022-07-21] MEDS: Atorvastatin Calcium 10 MG TABLET PO (08:30)
[2022-07-21] MEDS: 0.9 % Sodium Chloride Flush 3 ML SYRINGE IVFLUSH (08:31)
[2022-07-21] MEDS: Lidocaine 4 % Patch ADH..PATCH 1 PATCH TRANSDERMA (08:31)
[2022-07-21] MEDS: allopurinoL 100 MG TABLET 200 MG PO (08:31)
[2022-07-21] MEDS: Heparin Sodium,Porcine 5,000 UNIT/ML VIAL 5000 UNIT SUBCUT (08:32)
[2022-07-21 08:33] VITALS: BP 114/60; PULSE 100; O2SAT 94
[2022-07-21 08:38] LABS: Estimated Average Glucose 120 mg/dL; Hemoglobin A1c % 5.8 %
--- NOTE | 2022-07-21 10:05 | P.PNCA_ITS ---
Subjective Subjective Date of Service: 07/21/22 Interval history: Still has shortness of breath with activity. No anginal-type symptoms. Review of Systems Review of Systems Yes all other systems are reviewed and are negative Constitutional: Reports as per HPI and Reports no additional constitutional complaints Eyes: Reports as per HPI and Denies no additional eye complaints Denies system reviewed and no additional complaints, except as documented and Reports as per HPI Cardiovascular: Reports as per HPI, Reports no additional cardiovascular compla ints, Denies acrocyanosis, Denies cool extremities, Denies chest pain, Denies leg edema, Denies lightheadedness, Denies palpitations and Reports dyspnea Respiratory: Reports as per HPI, Denies no additional respiratory complaints and Reports dyspnea Gastrointestinal: Reports as per HPI and Denies no additional gastrointestinal complaints Genitourinary: Reports no additional male genitourinary complaints and Reports as per HPI Musculoskeletal: Reports no additional musculoskeletal complaints and Reports as per HPI Skin/Breast: Reports system reviewed and no additional complaints, except as docu Reports system reviewed and no additional complaints, except as documented and Reports as per HPI Psychiatric: Reports no additional psychiatric complaints and Reports as per HPI Endocrine: Reports no additional endocrine complaints, Reports as per HPI and Denies palpitations Hematologic/Lymphatic: Reports no additional hematologic/lymphatic complaints and Reports as per HPI Allergic/Immunologic: Reports no additional allergic/immunologic complaints and Reports as per HPI Physical Exam Vital Signs: Last Vital Signs Temp 97.4 F 07/21/22 07:59 Pulse 100 07/21/22 08:33 Resp 18 07/21/22 07:59 BP 114/60 07/21/22 08:33 Pulse Ox 94 07/21/22 08:33 O2 Del Method Nasal Cannula 07/21/22 07:59 O2 Flow Rate 2 07/21/22 07:59 Oxygen Flow Rate 2 07/19/22 17:00 BMI result Body Mass Index 41.8 Const General: comfortable and no acute distress Orientation/consciousness: patient oriented x3 HEENT Other: Unremarkable Head: Yes normal to inspection Neck Neck: Yes normal visual inspection Chest Chest palpation & inspection: normal inspection of the chest Resp Auscultation: rhonchi Cardio Palpation: normal PMI Heart sounds: S1 normal heart sound present, S2 normal heart sound present, no gallops, no murmurs and no rubs GI Palpation (GI): Soft to palpation Back/Spine/Pelvis Other: unremarkable Skin General skin exam: no rashes or lesions noted Neuro General: patient oriented x3 Extrem General: Yes normal to inspection Psych Mental Status: mental status grossly normal Objective Labs and Meds 07/19/22 16:09 07/21/22 06:08 Lab results: Laboratory Results - last 24 hr 07/21/22 07/21/22 06:08 06:08 Sodium 141 Potassium 4.2 Chloride 103 Carbon Dioxide 24 Anion Gap 18 BUN 40 H Creatinine 1.91 H Estim Creat Clear Calc 47.0 Estimated GFR 35 Random Glucose 143 H Estimat Average Glucose 120 Hemoglobin A1c % 5.8 Calcium 9.2 Imaging Radiologist's impression: Impressions Chest CT 07/20/22 09:35 IMPRESSION: 1. Mild emphysema. 2. A few previously visualized subcentimeter pulmonary nodules are stable. No new suspicious pulmonary nodules visualized. Fleischner guidelines were followed. Progress Note: A&P Assessment and plan (1) Cardiomyopathy: Status: Acute (2) Acute CHF: Status: Acute (3) LBBB (left bundle branch block): Status: Acute Plan Echocardiogram with LVEF of 32%. Severe septal hypertrophy. Moderate posterior mitral annular calcification. LVEF diminished compared to the prior study from 2020. Etiology is unclear. He could have underlying coronary disease. Findings discussed with patient, as well as son at the bedside. For medications, can switch the amlodipine to carvedilol. Continue losartan. Otherwise, will need coronary workup as an outpatient. Possibly cardiac catheterization. We discussed about this as well. Will arrange follow-up. Discussed with the hospitalist. Time Spent With Patient Time: Total time managing care of this patient today 45 minutes. This includes review of chart, documentation, discussion with family at the bedside, hospitalist, arranging follow-up, coordination of care. Progress Note: Quality Stroke Does the patient have a stroke diagnosis?: No Procedures Date of Service Date of Service: 07/21/22
[2022-07-21] MEDS: Furosemide 40 MG/4 ML VIAL IVPUSH (10:37)
--- NOTE | 2022-07-21 10:56 | PM.DS ---
DS: Providers Provider Date of Service: 07/21/22 Date of admission: 07/19/22 21:59 Primary care physician: Mj Bonilla MD Consults: 07/19/22 21:48 Consult to Cardiology Routine Consulting Provider: [facility] [place] [facility] Reason for consultation: CHF DS: Diagnosis Discharge Diagnosis (1) Cardiomyopathy: Status: Acute (2) Acute CHF: Status: Acute (3) LBBB (left bundle branch block): Status: Acute DS: Summary Hospital Course Hospital Course: HP as per admitting provider This is a 77-year-old male with past medical history of CVA, diabetes, sleep apnea noncompliant with CPAP, type 2 diabetes, presents the hospital with complaints of shortness of breath.? Patient reports that he is chronically short of breath but has worsening shortness of breath for the past 4 days, has mild cough with no increased sputum production.? Reports that he does have oxygen at home but does not usually use it but has had need to use a for the past few days.? He reports orthopnea and PND.? No lower extremity edema.? Denies any fever, no chills, no chest pain, no palpitations, no abdominal pain, no nausea or vomiting, no diarrhea constipation, no urinary symptoms.?On arrival to the ED patient hemodynamically stable EMS stated that patient was hypoxic but no recorded O2, patient is currently on 2 L of oxygen satting 95% Labs are significant for WBC count of 7.4, BNP of 254, troponin 15 initially, increased to 17.5 EKG showed normal sinus rhythm with a QTC of 492 in some evidence of incomplete left bundle branch block Chest x-ray shows unremarkable chest exam Patient was unable to tolerate chest CT. Acute dyspnea secondary to HFpEF. Echocardiogram showing cardiomyopathy with EF of 32%. Diuresed with IV Lasix, continue support with supplemental oxygen. Seen and examined by Cardiology. Plan for outpatient cardiac workup, will likely need cardiac catheterization. Continue low-sodium diet, monitor weights at home. Amlodipine stopped, carvedilol 3.125 twice daily started likely secondary to CHF exacerbation, COPD less likely, PE less likely D-dimer negative, patient has elevated BNP, orthopnea PND, no increased cough or sputum production will continue O2 support treat CHF with Lasix echo done in 2020 shows normal ejection fraction will obtain echocardiogram, strict I&O, low-sodium diet, daily weight Lasix 40 b.i.d. IV cardiology consulted UTI. Treated for Rocephin. Negative urine culture. Stop antibiotic Obstructive sleep apnea. Noncompliant with CPAP Diabetes mellitus type 2. Continue home medications Hyperlipidemia. Continue statin Time Spent with Patient Time attestation: Total time managing care of this patient today ____ minutes. Discharge coordination time: Greater than 30 minutes Quality: Safe Use of Opioids Does Pt have an Active Cancer Diagnosis on the Problem List?: No Quality: Stroke Does the patient have a stroke diagnosis?: No Physical Exam Vital Signs: Vital Signs: Last Vital Signs Temp 97.4 F 07/21/22 07:59 Pulse 100 07/21/22 08:33 Resp 18 07/21/22 07:59 BP 114/60 07/21/22 08:33 Pulse Ox 94 07/21/22 08:33 O2 Del Method Nasal Cannula 07/21/22 07:59 O2 Flow Rate 2 07/21/22 07:59 Oxygen Flow Rate 2 07/19/22 17:00 BMI result Body Mass Index 41.8 Appearing in no acute distress head is normocephalic atraumatic eyes pupils are PERRLA sclera is anicteric mouth throat mucous membranes are intact and moist neck is supple no lymphadenopathy, no JVD noted lung sounds are clear to auscultation heart regular rate rhythm, clear S1, S2 positive bowel sounds, abdomen is soft, nontender neuro patient is alert x3, no focal deficits DS: Data Data Completed and Pending Labs on day of discharge: Laboratory Results - last 24 hr 07/21/22 07/21/22 06:08 06:08 Sodium 141 Potassium 4.2 Chloride 103 Carbon Dioxide 24 Anion Gap 18 BUN 40 H Creatinine 1.91 H Estim Creat Clear Calc 47.0 Estimated GFR 35 Random Glucose 143 H Estimat Average Glucose 120 Hemoglobin A1c % 5.8 Calcium 9.2 Preliminary micro results at discharge 07/19/22 21:06 Blood Culture - Preliminary Blood - Venous No growth after 24 hours. 07/19/22 20:47 Blood Culture - Preliminary Blood - Venous No growth after 24 hours. Discharge Plan Discharge Anticipated Discharge Date/Time: 07/21/22 10:54 Patient Disposition: Home, Self-Care Discharge Diagnosis: Cardiomyopathy HFrEF HTN UTI Referrals: Mj Bonilla MD [Primary Care Provider] - 1 Week Discharge Medications: New carvedilol 3.125 mg tablet 3.125 mg PO BID Qty: 60 0RF Rx Instructions: must administer with a meal/food Continued carisoprodol 350 mg tablet 2 tab PO TID allopurinol 100 mg tablet 2 tab PO DAILY glipizide 2.5 mg tablet extended release 24hr 1 tab PO BID simvastatin 20 mg tablet 1 tab PO DAILY omeprazole 20 mg capsule,delayed release(DR/EC) 1 cap PO DAILY@0630 lorazepam 1 mg tablet 1 tab PO TID albuterol sulfate [Ventolin HFA] 90 mcg/actuation HFA aerosol inhaler 2 puff inhalation Q3-4H PRN (Reason: Shortness Of Breath) losartan 100 mg tablet 100 mg PO DAILY@0630 oxycodone [OxyContin] 30 mg tablet,oral only,ext.rel.12 hr 30 mg PO BID Discontinued amlodipine 5 mg tablet 5 mg PO DAILY Qty: 7 0RF Discharge Orders: Discharge Order (Routine); Ordered 07/21/22 Ordered By: Mindy Bourne Diet: Advance to usual diet Activity on Discharge: As tolerated Stand Alone Forms: Patient Portal Discharge page Care Plan Goals: O/P cardiac workup Health Concerns: Cardiomyopathy HFrEF HTN UTI Plan of Treatment: Follow up with cardiology for outpatient cardiac work-up take all medications as prescribed Assessment: See discharge summary
--- NOTE | 2022-07-21 11:12 | MHC.CM.PN ---
HOME - SELF CARE RN AWARE OF PLAN. IMM 07/20 PREVIOUSLY COMPLETED
== END 2022-07-21 13:42 | disposition home or self-care (01) | DRG 292 ==
LOC: HO.ED 20:01 → HO.EDOVER 22:28 → HO.S3 07-20 06:58
PROVIDERS: Physician Assistant; Admitting Provider Internal Medicine; Emergency Provider Internal Medicine; PCP Internal Medicine; Visit Provider Nurse Practitioner Acute Care
DX: I50.33 Acute on chronic diastolic (congestive) heart failure (principal); I42.9 Cardiomyopathy, unspecified; N39.0 Urinary tract infection, site not specified; Z68.41 Body mass index [BMI] 40.0-44.9, adult; E66.01 Morbid (severe) obesity due to excess calories; I34.81 Nonrheumatic mitral (valve) annulus calcification; E78.5 Hyperlipidemia, unspecified; G47.33 Obstructive sleep apnea (adult) (pediatric); I44.7 Left bundle-branch block, unspecified; Z91.199 Patient's noncompliance with other medical treatment and regimen due to unspecified reason; Z20.822 Contact with and (suspected) exposure to COVID-19; Z99.81 Dependence on supplemental oxygen; Z86.73 Personal history of transient ischemic attack (TIA), and cerebral infarction without residual deficits; Z87.891 Personal history of nicotine dependence; Z79.84 Long term (current) use of oral hypoglycemic drugs; Z79.899 Other long term (current) drug therapy
CPT/HCPCS: 36415; 70450; 71046; 71250; 80048; 80053; 81001; 83036; 83605; 83880; 84484; 85025; 85379; 87040; 87086; 87635; 93005; 93306; 96365; 97162; 99285; J0696; J1643; J1940; Q9957

== ENCOUNTER 2022-08-05 10:32 | Outpatient (REF) | payer MEDICARE, MEDICAID, SELFPAY ==
[2022-08-05 10:57] LABS: Hematocrit 44.5 % (42.0-52.0); Hemoglobin 14.6 g/dl (14.0-18.0); Mean Corpuscular HGB Conc 32.8 g/dl (31.0-36.0); Mean Corpuscular Hemoglobin 30.9 pg (27.0-33.0); Mean Corpuscular Volume 94.3 fL (80.0-98.0); Mean Platelet Volume 11.3 fL (9.4-12.4); Platelet Count 169 X10*3/uL (160-400); Red Blood Count 4.72 X10*6/uL (4.60-5.80); Red Cell Distribution Width 13.7 % (11.0-16.0); White Blood Count 8.8 X10*3/uL (4.8-10.8)
[2022-08-05 11:59] LABS: Anion Gap 11 (12-20); Blood Urea Nitrogen 42 mg/dL (9-16); Calcium 8.9 mg/dL (8.4-10.2); Carbon Dioxide 25 mmol/L (22-29); Chloride 111 mmol/L (96-108); Estimated Glomerular Filt Rate 40; Glucose Random 213 mg/dL (60-115); Potassium 4.1 mmol/L (3.3-5.1); Sodium 143 mmol/L (135-145)
[2022-08-05 12:48] LABS: Creatinine Urine 43.45 mg/dL; Protein/Creatinine Ratio, Ur 0.28 (<0.2); Total Protein Urine Random 12 mg/dL (<12)
== END 2022-08-05 10:33 | disposition home or self-care (01) ==
LOC: HO.LAB 10:32
PROVIDERS: PCP Internal Medicine; Visit Provider Internal Medicine Hypertension Specialist
DX: N02.8 Recurrent and persistent hematuria with other morphologic changes (principal)
CPT/HCPCS: 36415; 80048; 84156; 85027

== ENCOUNTER → 2022-08-19 15:26 | Outpatient (BNVA) | payer MEDICARE, MEDICAID, SELFPAY | PROVIDERS: PCP Internal Medicine; Referring Provider Internal Medicine; Visit Provider Internal Medicine Cardiovascular Disease | DX: I42.9 Cardiomyopathy, unspecified (principal) | CPT/HCPCS: 99212 ==

== ENCOUNTER 2022-10-01 12:14 | Outpatient (REF) | payer MEDICARE, MEDICAID, SELFPAY ==
[2022-10-01 12:31] LABS: MANUAL DIFF FLAG NO
[2022-10-01 13:37] LABS: Basophils Absolute Auto 0.1 X10*3/uL (0.0-0.2); Basophils Percent Auto 0.8 % (0-2); Eosinophils Absolute Auto 0.6 X10*3/uL (0.0-0.4); Eosinophils Percent Auto 7.5 % (0-4); Hematocrit 49.5 % (42.0-52.0); Hemoglobin 16.1 g/dl (14.0-18.0); Imm Gran Abs Auto 0.11 X10*3/uL (0.00-0.03); Imm Gran Pct Auto 1.3 % (0.0-0.4); Lymphocytes Absolute Auto 1.6 X10*3/uL (1.2-4.9); Lymphocytes Percent Auto 19.2 % (20-40); Mean Corpuscular HGB Conc 32.5 g/dl (31.0-36.0); Mean Corpuscular Hemoglobin 30.8 pg (27.0-33.0); Mean Corpuscular Volume 94.8 fL (80.0-98.0); Mean Platelet Volume 11.5 fL (9.4-12.4); Monocytes Absolute Auto 0.8 X10*3/uL (0.1-1.2); Monocytes Percent Auto 9.1 % (2-11); Neutrophils Absolute Auto 5.2 x10*3/uL (2.0-8.3); Neutrophils Percent Auto 62.1 % (45-73); Platelet Count 193 X10*3/uL (160-400); Red Blood Count 5.22 X10*6/uL (4.60-5.80); Red Cell Distribution Width 14.1 % (11.0-16.0); White Blood Count 8.4 X10*3/uL (4.8-10.8)
[2022-10-01 13:50] LABS: INTERNATIONAL NORM RATIO 0.9 (0.9-1.1); Prothrombin Time 10.3 SEC (10.0-13.1)
[2022-10-01 14:01] LABS: Anion Gap 14 (12-20); Blood Urea Nitrogen 25 mg/dL (9-16); Calcium 9.5 mg/dL (8.4-10.2); Carbon Dioxide 24 mmol/L (22-29); Chloride 106 mmol/L (96-108); Estimated Glomerular Filt Rate 45; Glucose Random 149 mg/dL (60-115); Potassium 4.4 mmol/L (3.3-5.1); Sodium 140 mmol/L (135-145)
== END 2022-10-01 12:15 | disposition home or self-care (01) ==
LOC: HO.LAB 12:14
PROVIDERS: PCP Internal Medicine; Visit Provider Internal Medicine Cardiovascular Disease
DX: I42.9 Cardiomyopathy, unspecified (principal); R77.8 Other specified abnormalities of plasma proteins
CPT/HCPCS: 36415; 80048; 85025; 85610

== ENCOUNTER 2022-11-07 23:18 | Inpatient (IN) | payer MEDICARE, MEDICAID, SELFPAY ==
--- NOTE | ~2022-11-07 | CT_ITS ---
EXAMINATION: CT HEAD WITHOUT CONTRAST CLINICAL INFORMATION: Stroke. Right-sided weakness. COMPARISON: CT head from 07/19/2022 and 11/09/2020. TECHNIQUE: Contiguous axial imaging was performed from the skull base to vertex without intravenous administration of contrast. This CT examination was performed using dose optimization techniques as appropriate, variously including the following: *Automated exposure control. *Adjustment of mA and/or kV according to patient size (this includes techniques or standardized protocols for targeted exams where dose is matched to indication/reason for exam; i.e. extremities or head). *Use of iterative reconstruction technique. DLP: 804 mGy-cm FINDINGS: There is chronic encephalomalacia within the left occipitoparietal lobes (including the precentral gyrus) with associated volume loss. No additional loss of arambula-white matter differentiation. No evidence of acute intracranial hemorrhage. A few foci of hypoattenuation in the periventricular and deep white matter are consistent with mild microangiopathy. Proportional prominence of the ventricles and sulcal spaces without evidence of obstructive hydrocephalus. No abnormal mass effect or midline shift. No extra-axial fluid collections. No acute soft tissue or osseous abnormalities. Mild mucosal thickening of the paranasal sinuses. The mastoid air cells and middle ear cavities are clear. Chronic waxing and waning nodular structure in the medial aspect of the left orbit (currently measuring 1.9 x 0.[address]/CT head for stroke IMPRESSION: 1. No evidence of acute intracranial hemorrhage or edematous territorial infarction. 2. Chronic encephalomalacia within the left occipitoparietal lobes. Mild underlying microangiopathy and generalized cerebral volume loss. 3. Chronic waxing and waning nodular structure in the medial aspect of the left orbit consistent with an orbital varix. This critical result was discussed with Dr. Johnson at 23:49 on 11/07/2022 and it was ascertained that the content and urgency of the report was understood at the time of direct communication.
--- NOTE | ~2022-11-07 | CT_ITS ---
EXAMINATION: CT HEAD WITHOUT CONTRAST CLINICAL INFORMATION: Follow-up on TPA for stroke COMPARISON: Previous head CT most recent 11/07/2022 TECHNIQUE: Contiguous axial imaging was performed from the skull base to vertex without intravenous administration of contrast. This CT examination was performed using dose optimization techniques as appropriate, variously including the following: *Automated exposure control *Adjustment of mA and/or kV according to patient size (this includes techniques or standardized protocols for targeted exams where dose is matched to indication/reason for exam; i.e. extremities or head) *Use of iterative reconstruction technique DLP: 519 mGy-cm FINDINGS: There is no evidence of an extra-axial collection. There is no evidence of intra or extra-axial hemorrhage. The ventricles and extra-axial CSF spaces are slightly prominent suggestive of mild generalized atrophy. There is mild nonspecific periventricular white matter disease. There is an old left posterior parietal and occipital infarct that appears unchanged. No mass, mass effect or acute infarct is seen. Review of bone windows is normal. Visualized paranasal sinuses, mastoid air cells and middle ears are clear.. CT/CT head/brain wo IV con IMPRESSION: No hemorrhage or acute infarct is seen. Left posterior parietal and occipital old infarct similar to previous exams.
--- NOTE | ~2022-11-07 | XR_ITS ---
EXAMINATION: XR CHEST CLINICAL INFORMATION: Shortness of breath COMPARISON: 07/19/2022 TECHNIQUE: Frontal view of the chest was obtained. FINDINGS: Lung volumes are symmetric. No focal consolidation is seen. Coarsened appearance of the interstitium noted towards the lung bases which may reflect airways disease. No evidence of pneumothorax or significant pleural effusion. Cardiac silhouette is prominent. No acute osseous findings are seen. XR/XR chest 1V IMPRESSION: No focal consolidation. Coarsened appearance of the interstitium towards the lung bases may reflect airways disease.
--- NOTE | ~2022-11-07 | CT_ITS ---
EXAMINATION: CT ANGIOGRAM HEAD CT ANGIOGRAM NECK CLINICAL INFORMATION: Right-sided weakness. COMPARISON: CT head from 11/07/2022. TECHNIQUE: Initial noncontrast health data administrator imaging of the head and neck was performed. Comparison is made with noncontrast head CT from earlier today. Test bolus sequences followed by intravenous administration 70 mL of Omnipaque 350. Helical imaging was performed in the axial plane from the aortic arch to the skull vertex. Delayed postcontrast imaging of the head was also performed. The data was processed at the isotope technologist's workstation for generation of MIP sequences. Angled MIPs and volume rendered reformatted images were also generated at an offline 3D workstation. Stenoses are assessed in accordance with NASCET criteria unless otherwise indicated. This CT examination was performed using dose optimization techniques as appropriate, variously including the following: *Automated exposure control. *Adjustment of mA and/or kV according to patient size (this includes techniques or standardized protocols for targeted exams where dose is matched to indication/reason for exam; i.e. extremities or head). *Use of iterative reconstruction technique. DLP: 1513 mGy-cm FINDINGS: CT Head: There is chronic encephalomalacia within the left occipitoparietal lobes (including the precentral gyrus) with associated volume loss. No additional loss of arambula-white matter differentiation. No evidence of acute intracranial hemorrhage. A few foci of hypoattenuation in the periventricular and deep white matter are consistent with mild microangiopathy. Proportional prominence of the ventricles and sulcal spaces without evidence of obstructive hydrocephalus. No abnormal mass effect or midline shift. No extra-axial fluid collections. No pathologic intra-axial enhancement. No acute soft tissue or osseous abnormalities. Mild mucosal thickening of the paranasal sinuses. The mastoid air cells and middle ear cavities are clear. Multifocal odontogenic enamel erosions and periapical lucencies. Chronic waxing and waning nodular structure in the medial aspect of the left orbit demonstrates enhancement and has decreased in size compared to prior noncontrast head CT. CT Neck: The thyroid gland and remaining cervical soft tissues are within normal limits. Straightening of the normal cervical lordosis. Mild degenerative anterolisthesis of C4 on C5. Ankylosis of C2-C3. Advanced degenerative disc disease from C3-T2. Facet and uncovertebral joint arthropathy leads to osseous encroachment on the neural foramina from C3-T2. CT Upper Chest: Moderate centrilobular emphysema in the visualized upper lungs. Neck CTA: Mildly motion degraded exam. Aortic Arch: Normal contour and caliber with moderate calcific atherosclerotic disease. Classic 3 vessel branching pattern of the aortic arch. Great Vessel Origins: No significant stenosis of the branch origins. Right Common Carotid Artery: No focal stenosis or occlusion. Cervical Right Internal Carotid Artery: Heavy calcific atherosclerotic disease of the carotid bulb and proximal internal carotid artery causes high-grade (at least 80%) stenosis of the origin of the right ICA (further quantification of stenosis is limited by the degree of calcification and motion degradation). Left Common Carotid Artery: No focal stenosis or occlusion. Cervical Left Internal Carotid Artery: Calcific atherosclerotic disease causes occlusion of the left ICA approximately 0.5 cm from its origin. Cervical Right Vertebral Artery: Dominant. Atherosclerotic disease causes moderate stenosis of the origin. No additional focal stenosis or occlusion. Cervical Left Vertebral Artery: Atherosclerotic disease causes moderate stenosis of the origin. No additional focal stenosis or occlusion. Brain CTA: Intracranial Internal Carotid Arteries: Calcific atherosclerotic disease of the intracranial right internal carotid artery without occlusion or flow-limiting stenosis. The petrous and cavernous segments of the left ICA remain nonopacified. There is reconstitution of the supraclinoid and paraophthalmic segments of the left ICA. Moderate central leptomeningeal lateralization. Right Anterior Cerebral Artery: Normal A1 segment. Normal opacification of the distal RANDAL segments. Left Anterior Cerebral Artery: Normal A1 segment. Normal opacification of the distal RANDAL segments. Anterior Communicating Artery: Normal. Right Middle Cerebral Artery: Normal M1 segment of the MCA without focal stenosis or occlusion. Normal arborization of the distal segments. Left Middle Cerebral Artery: Normal M1 segment of the MCA without focal stenosis or occlusion. Normal arborization of the distal segments. Right Vertebral Artery: Normal V4 segment. The posterior inferior cerebellar artery is not well opacified; however, there is no CT evidence of acute occlusion. Left Vertebral Artery: Normal V4 segment. Normal opacification of the proximal segments of the posterior inferior cerebellar artery. Basilar Artery: Normal without focal stenosis or occlusion. Normal appearance of the proximal superior cerebellar arteries. Right Posterior Cerebral Artery: Normal P1 segment. Normal opacification of the distal RESEARCH ATTORNEY segments. Left Posterior Cerebral Artery: Normal P1 segment. Normal opacification of the distal RESEARCH ATTORNEY segments. Normal opacification of the superior sagittal, straight, transverse, and sigmoid sinuses. CT/CT angio head neck stroke IMPRESSION: 1. No evidence of acute intracranial hemorrhage or edematous territorial infarction. Chronic encephalomalacia within the left occipitoparietal lobes. Mild underlying microangiopathy and generalized cerebral volume loss. 2. Chronic occlusion of the left ICA approximately 0.5 cm from its origin. 3. High-grade (at least 80%) stenosis of the origin of the right ICA. 4. The left-sided RANDAL and MCA vessels appear to cross-fill across the anterior communicating artery and through central leptomeningeal collateralization. 5. Moderate atherosclerotic stenoses of the origins of the vertebral arteries bilaterally. 6. Moderate multilevel degenerative spondyloarthropathy of the cervical spine. 7. Emphysema. 8. Chronic waxing and waning nodular structure in the medial aspect of the left orbit consistent with an orbital varix. This critical result was discussed with Dr. Johnson at 01:48 on 11/08/2022 and it was ascertained that the content and urgency of the report was understood at the time of direct communication.
--- NOTE | 2022-11-07 23:27 | ECG_ITS ---
Test Reason : STROKE Blood Pressure : / mmHG Vent. Rate : 119 BPM Atrial Rate : 119 BPM P-R Int : 166 ms QRS Dur : 076 ms QT Int : 320 ms P-R-T Axes : 049 002 073 degrees QTc Int : 450 ms Sinus tachycardia Nonspecific T wave abnormality Abnormal ECG When compared with ECG of 19-JUL-2022 17:27, Incomplete left bundle branch block is no longer Present Referred By: Candis Johnson Electronically Signed By:SHANNEN WATERS MD
--- NOTE | 2022-11-07 23:30 | PC.NURSE ---
Immediately upon arrival, RN received EMS report. After learning about the patient's acute onset of weakness within the last 1 hour (at 2220 per family and not previously reported in [facility] report). Due to the pt's acute onset of left sided weakness, unsteady gait and previous history requiring cardiac catheterization, charge master specialist presented the patient to both ER docs. Dr Johnson evaluated the patient prior to bedding, while on the EMS stretcher and it was determined the pt should go directly to CT for imaging. ED staff aware, pt's daugther present to provide additional/full details and to help keep the patient calm
--- NOTE | 2022-11-07 23:33 | ED_ITS ---
HPI - SOB/Dyspnea General Chief Complaint: Stroke Stated Complaint: sob Time Seen by Provider: 11/07/22 23:27 Source: patient and EMS Mode of arrival: EMS Limitations: no limitations History of Present Illness HPI Narrative: 77-year-old male with history of CVA, DM, sleep apnea noncompliant with CPAP, type 2 DM, COPD patient came in for evaluation of progressive shortness of breath and weakness on right side. Family noticed the patient started to have right-sided weakness and slurred speech started at 22:20 patient also noticed to have difficulty breathing that is progressively getting worse. On arrival to the ER CVA was expected with right-sided weakness and slurred speech and stroke protocol was activated. Patient also is showing signs of CHF. The decline fever, chills, coughing. Related Data Home Medications Medication Instructions Recorded Confirmed albuterol sulfate 90 mcg/actuation 2 puff inhalation Q3-4H PRN 11/09/20 11/08/22 aerosol inhaler (Ventolin HFA) Shortness Of Breath allopurinol 100 mg tablet 2 tab PO DAILY 11/09/20 11/08/22 carisoprodol 350 mg tablet 2 tab PO TID 11/09/20 11/08/22 glipizide 2.5 mg tablet, extended 1 tab PO BID 11/09/20 11/08/22 release 24 hr lorazepam 1 mg tablet 1 tab PO TID 11/09/20 11/08/22 omeprazole 20 mg capsule,delayed 1 cap PO DAILY@0630 11/09/20 11/08/22 release simvastatin 20 mg tablet 1 tab PO DAILY 11/09/20 11/08/22 losartan 100 mg tablet 100 mg PO DAILY@0630 07/20/22 11/08/22 oxycodone 30 mg tablet,crush 30 mg PO BID 07/20/22 11/08/22 resistant,extended release 12 hr (OxyContin) furosemide 20 mg tablet 20 mg PO QAM 08/19/22 11/08/22 oxycodone 20 mg tablet,crush 20 mg PO BEDTIME 08/19/22 11/08/22 resistant,extended release 12 hr (OxyContin) Previous Rx's Medication Instructions Recorded carvedilol 3.125 mg tablet 3.125 mg PO BID #100 tabs 08/19/22 empagliflozin 10 mg tablet 10 mg PO DAILY #30 tabs 09/14/22 (Jardiance) Allergies Allergy/AdvReac Type Severity Reaction Status Date / Time codeine [CODEINE] Allergy Intermediate RASH Verified 08/19/22 15:33 morphine [MORPHINE] Allergy Mild NAUSEA Verified 08/19/22 15:33 ibuprofen [From MOTRIN] Allergy Unknown NAUSEA Verified 08/19/22 15:33 Review of Systems Review of Systems: All other systems are reviewed and are negative Constitutional: Reports as per HPI and Reports no additional constitutional complaints Eyes: Reports as per HPI and Reports no additional eye complaints Reports system reviewed and no additional complaints, except as documented Cardiovascular: Reports as per HPI and Reports no additional cardiovascular complaints Respiratory: Reports as per HPI and Reports no additional respiratory complaints Gastrointestinal: Reports as per HPI and Reports no additional gastrointestinal complaints Genitourinary: Reports no additional female genitourinary complaints Musculoskeletal: Reports no additional musculoskeletal complaints Skin/Breast: Reports system reviewed and no additional complaints, except as docu Psychiatric: Reports no additional psychiatric complaints Endocrine: Reports no additional endocrine complaints Hematologic/Lymphatic: Reports no additional hematologic/lymphatic complaints Allergic/Immunologic: Reports no additional allergic/immunologic complaints Reports system reviewed and no additional complaints, except as documented and Reports Abnormal speech present [facility] Past Medical History Medical History Cardiomyopathy CHF (congestive heart failure) Chronic back pain CVA (cerebral vascular accident) LBBB (left bundle branch block) Lung nodule Oxygen dependent Sleep apnea Surgical History History of back surgery History of lithotripsy History of vasectomy Family History Family History Father Cirrhosis Mother Myocardial infarction Enlarged heart Sister No problems noted. Sister No problems noted. Social History Social History Household Members: Spouse and Family Housing: House Do you presently have visiting nurse or other home services: Yes (grandson is CASE PLAN[employer], nurse once every six months) Alcohol intake: former Year quit: 1979 Patient Tobacco Use Status: Former Tobacco user Quit Date: 1979 Years Smoked: 20 +/- Substance Use Type: Marijuana Advance Directives: No Advance Directives Information Provided: Yes service: Yes Current occupational status: retired Physical Exam Vital Signs: Vital Signs: Last Vital Signs Temp 100.1 F 11/07/22 23:50 Pulse 120 H 11/07/22 23:50 Resp 14 11/07/22 23:50 BP 107/55 L 11/07/22 23:50 Pulse Ox 93 11/07/22 23:50 O2 Del Method Nasal Cannula 11/07/22 23:50 Oxygen Flow Rate 3 11/07/22 23:50 BMI result Body Mass Index 34.7 Vital signs have been reviewed as appeared to be correct. Blood pressure normal. Heart rate normal. Respiration rate normal. Temperature normal. Oxygen saturation normal. Appearance: Alert. Oriented X3. No acute distress. Head: Normal external exam. Normocephalic. Atraumatic. No Haskins signs noted. No raccoon eyes noted Eyes: PERRLA. EOMI. Conjunctiva and sclera normal. Eyelids normal. ENT: TM's Normal. Pharynx normal. Uvula midline. Moist mucous membranes. No trismus noted. No drooling noted. No muffled voice noted. Neck: Normal inspection. Neck supple. FROM. No adenopathy. Thyroid Normal. No meningeal signs. No neck mass noted. CVS: Normal heart rate and rhythm. Heart sound normal. No murmurs noted. Pulses normal throughout. Respiratory: No respiratory distress. Painless inspiration. Breath sounds norm al. No wheezes/rales/rhonchi noted. Chest nontender. No accessory muscle usage noted or decreased air movement noted. Abdomen: Soft and nontender. Bowel sounds normal in all 4 quadrants. No distenti on noted. No organomegaly noted. No visible injury noted. Back: No CVA tenderness. Full range of motion noted. Skin: Skin warm and dry. Normal skin color. Normal skin turgor. No rashes/lesions/lacerations noted. Extremities: No lower extremity edema. Extremities exhibit normal range of motion. Extremities nontender. Neuro: Oriented X 3. Cranial nerve exam: Mild right facial droop, No motor deficit. Right pronator drift to upper extremities with right leg weakness. NIH Stroke Scale Internal: Initial- Upon Arrival Time: 23:38 Level of Consciousness: Alert Level of Consciousness Questions: Answers both questions correctly Level of Consciousness Commands: Performs both tasks correctly Best Gaze: Normal Visual: No visual loss Facial Palsy: Minor paralyis Motor Arm (Right): Some effort against gravity Motor Arm (Left): No drift Motor Leg (Right): Some effort against gravity Motor Leg (Left): No drift Limb Ataxia: Absent Sensory: Mild to moderate sensory loss Best Language: Mild to moderate aphasia Dysarthia: Normal Extinction and Inattention: No abnormality Score: 7 Course Reevaluation(s) Reevaluation #1: 77-year-old male came in with CHF exacerbation and right side weakness, patient is known to have chronic renal insufficiency not on dialysis, patient had negative head CT for acute stroke with NIH score of 7 the case discussed with Dr. Nunn who recommended tPA thrombolysis and CT angio of the head and neck to determine if the patient will be a candidate for mechanical thrombectomy of LVO with known history of kidney insufficiency. Time: 23:50 Reevaluation #2: Patient received tPA with improvement of the right hemiparesis patient is able to move his right side much better, able to speak with less slurred speech and less expressive aphasia. Time: 01:41 Reevaluation #3: Was called for the result of head/neck CTA with no acute LVO. The case discussed with Dr. Woody who accepted the patient to ICU. Continue with IV hydration/diuresis to flush out IV contrast was given during the exam. Time: 01:54 Medications Administered Discontinued Medications Generic Name Dose Route Start Last Admin Trade Name Freq PRN Reason Stop Dose Admin Alteplase, Recombinant 90 mg 11/08/22 00:01 11/08/22 00:20 Alteplase 100 Mg Vial IV 11/08/22 00:02 90 mg ONCE ONE Administration Iohexol 70 ml 11/08/22 01:10 11/08/22 01:11 Iohexol 350 Mg/Ml 100 Ml Infus..Btl IV 11/08/22 01:11 70 ml ONCE ONE Administration Medical Decision Making Differential Diagnosis Differential Diagnoses: The differential diagnosis associated with the presentation includes (Hemorrhagic CVA, ischemic CVA, cerebral LVO occlusion, CHF, electrolyte abnormality, severe anemia.) Admission/Observation Consideration of admission/observation: Escalation of care including admission/observation considered Consult Healthcare Provider Management of the patient was discussed with: Escalator Mechanic (Dr. Nunn/ Dr. woody.) Lab Data MDM Lab Attestation statement: I reviewed the patient's lab results. 11/07/22 23:36 11/07/22 23:36 Labs: Lab Results 11/07/22 11/07/22 11/07/22 Range/Units 23:35 23:36 23:36 WBC 9.2 (4.8-10.8) X10*3/uL RBC 4.56 L (4.60-5.80) X10*6/uL Hgb 14.3 (14.0-18.0) g/dl Hct 45.9 (42.0-52.0) % MCV 100.7 H (80.0-98.0) fL MCH 31.4 (27.0-33.0) pg MCHC 31.2 (31.0-36.0) g/dl RDW 14.6 (11.0-16.0) % Plt Count 135 L D (160-400) X10*3/uL MPV 11.0 (9.4-12.4) fL Immature Gran % (Auto) 0.5 H (0.0-0.4) % Neut % (Auto) 60.3 (45-73) % Lymph % (Auto) 16.7 L (20-40) % [place] % (Auto) 12.9 H (2-11) % Eos % (Auto) 9.3 H (0-4) % Baso % (Auto) 0.3 (0-2) % Lymph # (Auto) 1.5 (1.2-4.9) X10*3/uL [place] # (Auto) 1.2 (0.1-1.2) X10*3/uL Eos # (Auto) 0.9 H (0.0-0.4) X10*3/uL Baso # (Auto) 0.0 (0.0-0.2) X10*3/uL Abs Immat Gran (auto) 0.05 H (0.00-0.03) X10*3/uL Absolute Neuts (auto) 5.6 (2.0-8.3) x10*3/uL Absolute Nucleated RBC 0.000 (0.0-0.012) X10*3/uL Nucleated RBC % (auto) 0.0 (0.0-0.2) /100WBC PT 10.4 (10.0-13.1) SEC Whole Blood PT 13.1 (11.1-13.5) sec INR 0.9 (0.9-1.1) Whole Blood INR 1.1 (0.9-1.1) APTT 27.8 (26.0-36.4) SEC Sodium (135-145) mmol/L Potassium (3.3-5.1) mmol/L Chloride (96-108) mmol/L Carbon Dioxide (22-29) mmol/L Anion Gap (12-20) BUN (9-16) mg/dL Creatinine (0.5-1.4) mg/dL Estim Creat Clear Calc Estimated GFR POC Glucose (60-115) mg/dL Random Glucose (60-115) mg/dL Calcium (8.4-10.2) mg/dL Total Creatine Kinase (38-174) U/L Troponin I High Sens (<3.5-35.0) ng/L 11/07/22 11/07/22 11/07/22 Range/Units 23:36 23:36 23:36 WBC (4.8-10.8) X10*3/uL RBC (4.60-5.80) X10*6/uL Hgb (14.0-18.0) g/dl Hct (42.0-52.0) % MCV (80.0-98.0) fL MCH (27.0-33.0) pg MCHC (31.0-36.0) g/dl RDW (11.0-16.0) % Plt Count (160-400) X10*3/uL MPV (9.4-12.4) fL Immature Gran % (Auto) (0.0-0.4) % Neut % (Auto) (45-73) % Lymph % (Auto) (20-40) % [place] % (Auto) (2-11) % Eos % (Auto) (0-4) % Baso % (Auto) (0-2) % Lymph # (Auto) (1.2-4.9) X10*3/uL [place] # (Auto) (0.1-1.2) X10*3/uL Eos # (Auto) (0.0-0.4) X10*3/uL Baso # (Auto) (0.0-0.2) X10*3/uL Abs Immat Gran (auto) (0.00-0.03) X10*3/uL Absolute Neuts (auto) (2.0-8.3) x10*3/uL Absolute Nucleated RBC (0.0-0.012) X10*3/uL Nucleated RBC % (auto) (0.0-0.2) /100WBC PT (10.0-13.1) SEC Whole Blood PT (11.1-13.5) sec INR (0.9-1.1) Whole Blood INR (0.9-1.1) APTT (26.0-36.4) SEC Sodium 146 H (135-145) mmol/L Potassium 4.4 (3.3-5.1) mmol/L Chloride 107 (96-108) mmol/L Carbon Dioxide 25 (22-29) mmol/L Anion Gap 18 (12-20) BUN 31 H (9-16) mg/dL Creatinine 2.19 H (0.5-1.4) mg/dL Estim Creat Clear Calc 38.3 Estimated GFR 29 POC Glucose 127 H (60-115) mg/dL Random Glucose 126 H (60-115) mg/dL Calcium 9.0 (8.4-10.2) mg/dL Total Creatine Kinase 99 (38-174) U/L Troponin I High Sens 14.4 (<3.5-35.0) ng/L Independent Interpretation I performed an independent interpretation of an: Plain X-Ray (Chest: No acute intrathoracic pathology.) and CT Scan (head: no acute intracranial pathology.) Radiology Impression Discussion of test interpretation with radiology: I have reviewed the radiologist's reading. Chronic Conditions Patient?s care impacted by: Other (COPD, CHF, CVA) Critical Care Time Critical Care Time Critical Care Time: Yes Total Critical Care Time: 60 Attestation: I spent 60 minutes providing critical care service to the patient, this including time spent at the bedside to evaluate the patient, reassess the patient, monitoring vital signs, review labs, and radiographic studies, counseling the patient/family, discussing the case with consultants, disposition the patient. Discharge Plan Discharge Clinical Impression: Cerebrovascular accident, Congestive heart failure Patient Disposition: Admitted As Inpatient Prescriptions: No Action Jardiance 10 mg tablet 10 mg PO DAILY Qty: 30 8RF carisoprodol 350 mg tablet 2 tab PO TID allopurinol 100 mg tablet 2 tab PO DAILY glipizide 2.5 mg tablet extended release 24hr 1 tab PO BID simvastatin 20 mg tablet 1 tab PO DAILY omeprazole 20 mg capsule,delayed release(DR/EC) 1 cap PO DAILY@0630 lorazepam 1 mg tablet 1 tab PO TID albuterol sulfate [Ventolin HFA] 90 mcg/actuation HFA aerosol inhaler 2 puff inhalation Q3-4H PRN (Reason: Shortness Of Breath) losartan 100 mg tablet 100 mg PO DAILY@0630 oxycodone [OxyContin] 30 mg tablet,oral only,ext.rel.12 hr 30 mg PO BID oxycodone [OxyContin] 20 mg tablet,oral only,ext.rel.12 hr 20 mg PO BEDTIME furosemide 20 mg tablet 20 mg PO QAM carvedilol 3.125 mg tablet 3.125 mg PO BID Qty: 100 3RF Rx Instructions: must administer with a meal/food
[2022-11-07 23:36] VITALS: BP 106/50; PULSE 126; O2SAT 88
[2022-11-07 23:39] LABS: Prothrombin Time Whole Bld POC 13.1 sec (11.1-13.5); ~PT, ~INR - Anti Coag Clinic 1.1 (0.9-1.1)
[2022-11-07 23:42] LABS: Glucose, Whole Blood 127 mg/dL (60-115)
[2022-11-07 23:50] VITALS: BP 107/55; PULSE 120; RESP 14; TEMP 37.8; O2SAT 93; BMI 34.7
[2022-11-07 23:50] LABS: Hemoglobin 14.3 g/dl (14.0-18.0); INTERNATIONAL NORM RATIO 0.9 (0.9-1.1); Mean Corpuscular HGB Conc 31.2 g/dl (31.0-36.0); Mean Corpuscular Hemoglobin 31.4 pg (27.0-33.0); PLT CLUMP 1; Prothrombin Time 10.4 SEC (10.0-13.1); Red Blood Count 4.56 X10*6/uL (4.60-5.80); SCAN SMEAR FLAG 1
[2022-11-07 23:52] LABS: Basophils Percent Auto 0.3 % (0-2); Eosinophils Absolute Auto 0.9 X10*3/uL (0.0-0.4); Eosinophils Percent Auto 9.3 % (0-4); Hematocrit 45.9 % (42.0-52.0); Imm Gran Abs Auto 0.05 X10*3/uL (0.00-0.03); Imm Gran Pct Auto 0.5 % (0.0-0.4); Lymphocytes Absolute Auto 1.5 X10*3/uL (1.2-4.9); Lymphocytes Percent Auto 16.7 % (20-40); Mean Corpuscular Volume 100.7 fL (80.0-98.0); Monocytes Absolute Auto 1.2 X10*3/uL (0.1-1.2); Monocytes Percent Auto 12.9 % (2-11); Neutrophils Absolute Auto 5.6 x10*3/uL (2.0-8.3); Neutrophils Percent Auto 60.3 % (45-73); Red Cell Distribution Width 14.6 % (11.0-16.0)
[2022-11-07 23:53] LABS: Partial Thromboplastin Time 27.8 SEC (26.0-36.4)
[2022-11-07 23:58] LABS: MANUAL DIFF FLAG NO; Platelet Count 135 X10*3/uL (160-400); White Blood Count 9.2 X10*3/uL (4.8-10.8)
[2022-11-08] VITALS (32 sets, daily range): BP systolic 95–147; BP diastolic 51–79; PULSE 93–118; RESP 9–20; TEMP 37.1–37.9; O2SAT 90–96; BMI 35.3
[2022-11-08 00:01] LABS: Stroke Lab Use COMPLETE
[2022-11-08 00:04] LABS: Anion Gap 18 (12-20); Blood Urea Nitrogen 31 mg/dL (9-16); Carbon Dioxide 25 mmol/L (22-29); Chloride 107 mmol/L (96-108); Creatinine Clr Calc Pharmacy 38.3; Estimated Glomerular Filt Rate 29; Glucose Random 126 mg/dL (60-115); Potassium 4.4 mmol/L (3.3-5.1); Sodium 146 mmol/L (135-145)
[2022-11-08 00:09] LABS: Troponin-I High Sensitivity 14.4 ng/L (<3.5-35.0)
--- NOTE | 2022-11-08 00:34 | PC.NURSE ---
stroke alert called at [address]. 20g iv placed on L ac 20g. blood work obtained pt brought to CT. per md hold ct with contrast until labs come back. pt back to ed 5. pt placed on quality assurance monitor. dr nice to bedside. pt noted to have weakness in right sided arm and leg with noted droop per pt daughter. dr nice at bedside ordered ambulation trial. pt unsteady gate. new per daughter 18g iv placed in R FA. TPA initiated @ 0020. pt bolus with 9mg push over 1 minute. infusion dose of 81mg over 1 hour
--- NOTE | 2022-11-08 00:35 | PC.NURSE ---
pt on q15 min neuro check. upon presentation to ed pt noted to have moderate right sided weakness in r arm and leg. at 0035 neuro check pt a+o x 4 weakness on r side arm and leg noted to show improvement
[2022-11-08] MEDS: iohexoL 350 MG/ML 100 ML INFUS..BTL 70 ML IV (01:11)
--- OUTSIDE RECORDS SUMMARY | 2022-11-08 01:13 | XMS_ITS | Continuity of Care Document ---
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 Name Role Phone Chad MELENDREZ, Mj Mensah Primary Care Physician [phone] Encounter [facility] Date(s): 10/13/22 - 10/13/[address] [address] Discharge Disposition: A-D/C Home Attending Physician: Edison Graham MD Admitting Physician: Edison Graham MD Referring Physician: Edison Graham MD Allergies, Adverse Reactions, Alerts Substance Reaction Severity Status codeine Active morphine Active penicillins Active Medications allopurinol 100 mg oral tablet 100 mg, 1, tablet, By Mouth, Daily, # 30 tablet, Refills 0, Maintenance, 10/13/22 15:10:00 EDT, Partial fill upon patient request if the prescription is for a schedule II opioid drug. Start Date: 10/13/22 Status: Ordered carvedilol 3.125 mg oral tablet 3.125 mg, 1, tablet, By Mouth, 2 times a day, # 60 tablet, Refills 0, Maintenance, 10/13/22 15:10:00 EDT, Partial fill upon patient request if the prescription is for a schedule II opioid drug. Start Date: 10/13/22 Status: Ordered furosemide 20 mg oral tablet 1, capsule, By Mouth, Once, # 1 tablet, Refills 0, Maintenance, 10/13/22 15:11:00 EDT, Partial fillupon patient request if the prescription is for a schedule II opioid drug. Start Date: 10/13/22 Status: Ordered glipiZIDE 10 mg oral tablet 2 tablet = 20 mg, By Mouth, Daily, 0 Refills, Maintenance, 10/13/22 15:11:00 EDT, Partial fill uponpatient request if the prescription is for a schedule II opioid drug. Start Date: 10/13/22 Status: Ordered Lorazepam 0 Refills, Maintenance Start Date: 07/31/11 Status: Ordered lorazepam 0.5 mg oral tablet 1 tablet = 0.5 mg, By Mouth, 3 times a day, PRN for anxiety, 0 Refills, Maintenance, Tablet Start Date: 07/31/11 Status: Ordered losartan 100 mg oral tablet 1 tablet = 100 mg, By Mouth, Daily, 0 Refills, Maintenance, 10/13/22 15:13:00 EDT, Partial fill upon patient request if the prescription is for a schedule II opioid drug. Start Date: 10/13/22 Status: Ordered Keyser-3 Fish Oil 1000 mg oral capsule 1 capsule = 1,000 mg, By Mouth, Daily, 0 Refills, Maintenance, 10/13/22 15:13:00 EDT, Partial fill upon patient request if the prescription is for a schedule II opioid drug. Start Date: 10/13/22 Status: Ordered omeprazole 20 mg oral delayed release tablet 1 tablet = 20 mg, By Mouth, Daily, 0 Refills, Maintenance, 10/13/22 15:14:00 EDT, Partial fill uponpatient request if the prescription is for a schedule II opioid drug. Start Date: 10/13/22 Status: Ordered OxyContin 20 mg oral tablet, extended release 1 tablet = 20 mg, By Mouth, Every 12 hours, 0 Refills, Maintenance, ER Tablet Start Date: 07/31/11 Status: Ordered OxyCONTIN 30 mg oral tablet, extended release 1 tablet = 30 mg, By Mouth, PRN, 0 Refills, Maintenance, 10/13/22 15:14:00 EDT, Partial fill upon patient request if the prescription is for a schedule II opioid drug. Start Date: 10/13/22 Status: Ordered simvastatin 20 mg oral tablet 20 mg, 1, tablet, By Mouth, Daily at bedtime, # 30 tablet, Refills 0, Maintenance, 10/13/22 15:15:00 EDT, Partial fill upon patient request if the prescription is for a schedule II opioid drug. Start Date: 10/13/22 Status: Ordered Soma 350 mg oral tablet 2 tablet = 700 mg, By Mouth, 3 times a day, # 30 tablet, 0 Refills, Maintenance, 07/31/11 22:51:59 EDT, Tablet Start Date: 07/31/11 Stop Date: 08/10/11 Status: Ordered Ventolin HFA 108 mcg/inh inhalation aerosol with adapter 1 puffs, Inhalation, 4 times a day, PRN for wheezing, # 8 Gm, 0 Refills, Maintenance, 10/13/22 15:15:00 EDT, Aerosol, Partial fill upon patient request if the prescription is for a schedule II opioiddrug. Start Date: 10/13/22 Status: Ordered Problem List Condition Confirmation Course Effective Dates Status Health St atus Informant Obese class I Confirmed Active Vital Signs Most recent to oldest [Reference Range]: 1 2 3 Height 182.88 cm (10/13/22 9:30 AM) Weight 112.4 kg (10/13/22 9:30 AM) Oxygen Saturation [94-100 %] 91 % *L* (10/13/22 3:30 PM) 92 % *L* (10/13/22 3:00 PM) 91 % *L* (10/13/22 2:30 PM) Pulse Rate [55-90 bpm] 87 bpm (10/13/22 9:30 AM) Body Mass Index [18.5-24.99 kg/m2] 33.61 kg/m2 *>HHI* (10/13/22 9:30 AM) Blood Pressure [90-138/55-84 mm Hg] 154/95mm Hg *H* (10/13/22 3:30 PM) 154/95mm Hg *H* (10/13/22 3:00 PM) 140/90mm Hg *H* (10/13/22 2:30 PM) Respiratory Rate [16-30 br/min] 12 br/min *L* (10/13/22 3:30 PM) 12 br/min *L* (10/13/22 3:00 PM) 15 br/min *L* (10/13/22 2:30 PM) Temperature [96.8-100.4 DegF] 97.7 DegF (10/13/22 9:30 AM) Mode of Delivery (Oxygen) Room air (10/13/22 3:30 PM) Room air (10/13/22 3:00 PM) Room air (10/13/22 2:30 PM) Blood pressure sites Arm, left (10/13/22 3:30 PM) Arm, left (10/13/22 3:00 PM) Arm, left (10/13/22 2:30 PM) Temperature Route Temporal (10/13/22 9:30 AM) Dry Weight 112.4 kg (10/13/22 9:30 AM) Weight Obtained Via Standing scale (10/13/22 9:30 AM) Dry Weight Obtained Via Standing scale (10/13/22 9:30 AM) Cardiac catheterization study * Event Display: Cardiac Outside [employer] Sales Representatives Report Authored Date: * Event Display: Cardiac Outside [employer] Sales Representatives Report Authored Date: Cardiac Diagnostic Report Demographics Patient Name BOOM CORONADO Gender Male [employer] Room Number [id number] Height 72 inches Date of 1945 Weight 247.8 pounds Age 77 year(s) BSA 2.33 m2 Accession Number [id number] BMI 33.61 kg/m2 Referring Physician Edison Graham MD Date of Study 10/13/2022 Performing Physician Edison Graham MD Fellow Scott Boss Interventional Physician Procedure Procedure Type Diagnostic procedure:Coronary Angiography with [facility] ACC Diagnostic Catheterization Status:Elective Indications Indications: Dyspnea/SOB and Cardiomyopathy. Current Diagnosis:ACS. Clinical History Admission Medications + +--------+-------+ + + +---------+ !Medication !Dosage !Times !Last !Last !Administered !Comments ! ! ! !Per Day!Delivery !Delivery ! ! ! ! ! ! !Date !Time ! ! ! + +--------+-------+ + + +---------+ !Beta [place]!3.125 mg!x 2 !10/13/2022 !07:00 ! ! ! !(any) ! ! ! ! ! ! ! + +--------+-------+ + + +---------+ !ARB (any) !100 mg !x 1 !10/13/2022 !07:00 ! ! ! + +--------+-------+ + + +---------+ !Statin (any)!20 mg !x 1 !10/13/2022 !07:00 ! ! ! + +--------+-------+ + + +---------+ Clinical Evaluation Leading to Procedure - The patient's CAD presentation was assessed as: Symptom unlikely to be ischemic. - There were no anginal symptoms. - The patient was diagnosed with a heart failure condition. Heart failure type: Systolic. - The reason for the patient's medical laboratory technical officer visit is evaluation of cardiomyopathy and/or evaluation of left ventricular systolic dysfunction. ACC Risk Factors The patient risk factors include:cerebrovascular disease, treated hypercholesterolemia, treated hypertension, chronic lung disease, last creatinine: 1.5 mg/dl, creatinine clearance: 67.65 ml/min, dyslipidemia, former tobacco use and prior heart failure. Additional Clinical History:77 y/o male with lumbago, prior CVA, LBBB, KAREN who was recently found to have cardiomyopathy during hospitalization for UTI. He is here for diagnostic angio. Procedure Data Procedure Date Date: 10/13/2022Start: 11:42End: 12:13 The procedure was explained in detail to the patient. Risks, complications and alternative treatments were reviewed. Written consent was obtained. Entry Locations - Retrograde Percutaneous access was performed through the Right Radial artery. A 6 Fr sheath was inserted. Hemostasis was successfully obtained using TR Band. Closure Comments: 12ccs. Procedure Medications - Versed (Midazolam) I.V. 1 mg. - Fentanyl I.V. 50 mcg. - Lidocaine 2% S.C. Right Wrist 3 ml. - Nitroglycerin I.A. 200 mcg. - Heparin I.V. 5000 units. - 0.9NS I.V. bolus 250 ml. Sedation: My intra-service moderate sedation time was: from 1151 to 1214. Refer to procedural log for detailed chronological information. Contrast Material - Omnipaque 30 ml Diagnostic Catheters - [id number] RADIAL TIG 4.0 RADIFOCUS OPTITORQUE CATHETERwas used for: Left heart catheterization. - [id number] RADIAL TIG 4.0 RADIFOCUS OPTITORQUE CATHETERwas used for: Left coronary angiography. - [id number] RADIAL TIG 4.0 RADIFOCUS OPTITORQUE CATHETERwas used for: Right coronary angiography. Fluoroscopy Time: Diagnostic: 2:35 minutes. Total: 2:35 minutes. Fluoroscopy Dose: Diagnostic: 241 mGy. Total: 241 mGy. Dose Area Product:Diagnostic: 78836 mGy/cm2. Total: 89254 mGy/cm2. Dose Area Product:Diagnostic: 1889.0538399014733 ??Gy/m2. Total: 1889.3039586442389 ??Gy/m2. Procedure Narrative We accessed the RRA using a 6 Fr slender sheath. We crossed into LV and recorded LVEDP. Diagnostic angio with 5 Fr [place]. Hemostasis with reg TR band. Angiographic Findings Cardiac Arteries and Lesion Findings LMCA: Mild luminal irregularities (<30%). LAD: Mild luminal irregularities (<30%).mid LAD has myocardial bridge. LCx: Proximal LCx 65 to 70%. RCA: Lesion in Prox RCA: Proximal subsection.65% stenosis . Pre procedure WADE III flow was noted. Good runoff was present. Hemodynamics Condition: Rest O2 Consumption: Estimated: 275.68Heart Rate: 79 bpm Pressures (mmHg) +-----+ + !Site !Pressure ! +-----+ + !LV !110/2 ,4 ! +-----+ + !AO !126/61 (96)! +-----+ + !LV !116/7 ,13 ! +-----+ + !AO !132/75 (99)! +-----+ + Valve Gradients and Areas +------+----+----+----+-----+----+------+ !Valve !Peak!Mean!Area!Index!Flow!Source! +------+----+----+----+-----+----+------+ !Aortic!0 !0 ! ! ! ! ! +------+----+----+----+-----+----+------+ !Aortic!0 !0 ! ! ! ! ! +------+----+----+----+-----+----+------+ Shunts Oxygen Values O2 Capacity 218.96 O2 Consumption 275.68 Interventional Procedure Conclusions Diagnostic Summary 77-year-old male with new diagnosis of cardiomyopathy with EF 30-35%. Here for [facility]. Hemodynamics: Normal systemic pressures. Normal LVEDP. There is no significant gradient on pullback across the aortic valve. Coronary anatomy: Moderate LCx and RCA disease. The patient has moderate cardiomyopathy EF 30-35%. He has moderate disease in the RCA and LCx. Nonischemic cardiomyopathy. Diagnostic Recommendations Aggressive secondary risk factor modification according to ATP III guidelines. Continue aspirin 81 mg/day indefinitely. GDMT for cardiomyopathy. ACC Diagnostic Recommendations: Medical therapy and/or counseling. Complications:None. Signatures VA LV function assessed as:Abnormal. Ejection Fraction - Method: Echocardiography. EF%: 30. Note * Jackie Babb RN: PERFORM Event Display: Discharge/Transfer Note Hospital Authored Date: Nursing Discharge Note Entered On: 10/13/2022 16:55 EDT Performed On: 10/13/2022 15:45 EDT by Jackie Babb RN Nursing Discharge Note 2 Discharge Time : 10/13/2022 15:45 EDT Discharge Level of Care at Discharge : Home/Snf/Foster Care Patient Left Unit Via : Wheelchair Patient Accompanied Off Unit with : Significant other DC Instructions Provided & Signed by Pt : Yes Patient Understands D/C Instructions : Yes Patient Instructions Discharge Signed : Yes Did Pt have Specialty Bed or Wound Vac : No Jackie Babb RN - 10/13/2022 16:55 EDT * Jackie Babb RN: PERFORM Event Display: Patient Education/Instruction Authored Date: [id number] Inpatient Adult Discharge Instructions [address] [address] Name: IVONNE NUR : 1945 Visit: 10/13/2022 08:20:00 Current Date: 10/13/2022 15:18 Account: [id number] Inpatient Adult Discharge Instructions We would like to thank you for allowing us to assist you with your healthcare needs. The following includes patient education materials and information regarding your injury/illness. Our entire staffstrives to provide an excellent experience for our patients and their families. PLEASE ENSURE YOU FOLLOW-UP PER THE INSTRUCTIONS BELOW! ?? YOUR OPINION IS IMPORTANT TO US! Please complete the survey you may receive by mail or email. Your feedback will be used to make improvements to the healthcare experiences of our patients and their families. Surveys are administered by [employer] ?? If further treatment with your primary care physician or another doctor is recommended, it is important for you to keep the appointment. Call your primary care physician or return to the Emergency Department immediately if your condition worsens, fails to improve, or new symptoms develop. If you need to find a doctor, you can call [facility] for a referral at [phone] or toll free at [phone] or log in to [email or web address].. ?? You can view and manage your care through the patient portal or by using a health care cady of your choosing. [employer] is a website that allows you to securely view your medical information including your hospital discharge summary, office visit summaries, medications and follow-up visits. You can also request appointments, renew medications, and request access to your medical information using a health care cday of your choosing, or just ask a question. You can enroll at [email or web address] or register during your next office visit. You have been discharged from [facility], Patient Care Unit: CARE. If you have any questions regarding these instructions after you leave, please call us and we will be happy to assist you. [facility] Your Care Team Attending Physician Edison Graham MD Discharging Providers Scott Boss DO Reason for Admission CARDIOMYOPATHY [facility] HV2 830AM ARR Tests Performed Below is a partial list of the tests performed during your hospitalization. You may have had other tests and procedures not included in this list. Please discuss all test results with your provider. GLUCOSE POC Type and Screen Primary Care Provider Chad MELENDREZ, Mj Mensah Advance Directive Health Care Proxy on File No Studies Pending All tests and labs ordered during this hospital stay have been completed unless listed below. Please discuss all pending results with your provider listed above in these instructions. ?? No incomplete studies found What to do next Instructions From Your Doctor Discharge Orders You Need to Schedule the Following Appointments Follow Up with??Edison Graham MD When:??Within 2 to 3 weeks Discharge Medications IVONNE NUR :1945 Visit Date:10/13/2022 Medications: Please continue your medications until treatment is completed or stopped by your provider. Medications not listed below should be discontinued. Discuss any questions related to medications with your provider. What How Much When Instructions Next Dose Unchanged Albuterol (Ventolin HFA 108 mcg/ inh inhalationaerosol with adapter) 1 puff(s) Inhalation 4 times a day as needed for for wheezing as prescribed Unchanged Allopurinol (allopurinol 100 mg oral tablet) 1 tab(s) Oral Daily as prescribed Unchanged Carisoprodol (Soma 350 mg oral tablet) 2 tab(s) Oral 3 times a day Duration: 10 Days as prescribed Unchanged Carvedilol (carvedilol 3.125 mg oral tablet) 1 tab(s) Oral Twice a day as prescribed Unchanged Furosemide (furosemide 20 mg oral tablet) 1 capsule Oral Once as prescribed Unchanged GlipiZIDE (glipiZIDE 10 mg oral tablet) 2 tab(s) Oral Daily as prescribed Unchanged Lorazepam as prescribed Unchanged Lorazepam (lorazepam 0.5 mg oral tablet) 1 tab(s) Oral 3 times a day as needed for for anxiety as prescribed Unchanged Losartan (losartan 100 mg oral tablet) 1 tab(s) Oral Daily as prescribed Unchanged Keyser-3 Polyunsaturated Fatty Acids (Keyser-3 Fish Oil 1000 mg oral capsule) 1 capsule Oral Daily as prescribed Unchanged Omeprazole (omeprazole 20 mg oral delayed release tablet) 1 tab(s) Oral Daily as prescribed Unchanged Oxycodone (OxyContin 20 mg oral tablet, extended release) 1 tab(s) Oral Every 12 hours as prescribed Unchanged Oxycodone (OxyCONTIN 30 mg oral tablet, extended release) 1 tab(s) Oral PRN ?? as prescribed Unchanged Simvastatin (simvastatin 20 mg oral tablet) 1 tab(s) Oral Daily at Bedtime as prescribed Test Results Below is a partial list of the most recent Laboratory test results done prior to this discharge. You may have had other tests and procedures not included in this list. Please discuss all test resultswith your provider. GLUCOSE POC (10/13/2022) ???Glucose, POC - 158 mg/dL Type and Screen (10/13/2022) ???Blood Type - O Negative???Antibody Screen - Negative Allergies (NKA means No Known Allergies) codeine morphine penicillins Problems No qualifying data available Education Materials Below is the list of Educational Leaflet Providered with your Discharge Instructions. Surgery Radial Cath Approach Discharge Instructions?? Procedural Sedation?? Valuables and Belongings I fully understand and agree that [facility] accepts no responsibility for all my personal property including clothing, toilet articles, radios, jewelry, dentures, hearing aids, rings, money, or any other property that is in my possession or is brought to me after admission. I understand certain valuables may be placed in a hospital safe for a short period of time. I understand that the hospital is not liable for loss or damage due to accident, fire, or other natural occurrence while said property is in the safe. I accept full responsibility for any personal property that I keep with me, and will not hold the hospital responsible in case of loss or disappearance. I acknowledge that i have been encouraged to send valuables and belongings home. ? Common Emergency Awareness Tips IS IT A STROKE? Act FAST and Check for these signs: FACE Does the face look uneven? ARM Does one arm drift down? SPEECH Does their speech sound strange? TIME Call at any sign of stroke ?? Heart Attack Signs Chest discomfort: Most heart attacks involve discomfort in the center of the chest and lasts more than a few minutes, or goes away and comes back. It can feel like uncomfortable pressure, squeezing, fullness or pain. Discomfort in upper body: Symptoms can include pain or discomfort in one or both arms, back, neck, jaw or stomach. Shortness of breath: With or without discomfort. Other signs: Breaking out in a cold sweat, nausea, or lightheaded. Remember, MINUTES DO MATTER. If you experience any of these heart attack warning signs, call to get immediate medical attention! ?? Smoking can increase your chances of developing chronic health problems and can cause harmful effects to other family members in your house. If you smoke, you are strongly encouraged to quit. Please call [facility] at [phone] or [phone] ([phone]) or log in to [email or web address] for referrals to smoking cessation programs. ?? 988 Suicide & Crisis Lifeline is available 16/11 if you or someone you know needs to find a reason to keep living. By calling 988 you'll be connected to a skilled, trained counselor at a crisis center in your area. INPATIENT DISCHARGE INSTRUCTIONS SIGNATURE PAGE IVONNE NUR Location:[facility] Registration Date and Time:10/13/2022 08:20 EDT Primary Care Physician: Chad MELENDREZ, Mj Mensah, Attending Physician: Santos MELENDREZ, Edison, I IVONNE NUR, have received the above patient education materials/instructions and have verbalized understanding. If ambulance or transport services are being used I further acknowledge being given a choice of service. ?? If you need to contact me, please call me at this number: . Patient/Legal Process Specialist Name: Patient/Legal Process Specialist Signature: Relationship to Patient: Witness Name/Signature: Date: * Jackie Babb RN: PERFORM Event Display: Patient Education Leaflets Authored Date: Surgery Radial Cath Approach Discharge Instructions ?? 278 Radial Cath Approach Discharge Instructions ?? Activity Take it easy the rest of the day. Limit your activity on the affected side.?? Act as if your arm is broken for 24 hours. No lifting with affected arm for 24 hours. No pushing or pulling with the affected arm. Do not reach or lift with the affected arm. Do not place excessive pressure on the wrist. ?? Precautions Due to intravenous sedation: It is recommended that someone stay with you for the first night after your procedure. Do not drive or operate hazardous machinery for 24 hours. Do not make legal decisions for 24 hours. Avoid alcohol for 24 hours. Unless directed otherwise, keep yourself hydrated. ?? Dressing/Incision Care You may remove the dressing 24 hours after your procedure. Replace with band aid for an additional 24 hours. You may shower and cleanse the site with soap & water then pat dry. Avoid submersion of site in water x 5 days. Cover the with a clean band aid daily until site is healed. If the band aid becomes soiled, replacewith a clean new one. Do not apply any ointments, lotions, gels or powders to the puncture site. ?? When to contact your doctor If any of the following signs of infection occur: Fever greater than 100 degrees F Increased pain Drainage, redness or warmth at puncture site Tingling of the fingers and hand that last longer than 3 days Slight bubble of blood or bleeding from site: apply manual pressure and notify your doctor ?? Emergency situations: Bleeding from the site that will not stop: apply manual pressure and notify your doctor Profuse bleeding streaming from the puncture site: Apply manual pressure and notify your doctor immediately If your hand becomes bluish, cold to the touch, or painful, notify your doctor immediately or go toEmergency Department. For these emergent situations: If unable to contact your physician, call 911. ?? * Jackie Babb RN: PERFORM Event Display: Patient Education Leaflets Authored Date: Procedural Sedation ?? [address] Procedural Sedation Procedural sedation is medicine to ease discomfort, pain, and anxiety during a procedure. The medicine is often given through an IV (intravenous) line in your arm or hand. In some cases, the medicinemay be taken by mouth or inhaled. While you are under sedation, you will likely be awake. But you may not remember anything afterward. Why procedural sedation is used Sedation is used for many types of procedures. The goal is to reduce pain, anxiety, and stressful memories of a procedure. It can help your healthcare provider treat you. For example, having a brokenbone fixed may be easier if you feel relaxed. This type of sedation is used only for short, basic procedures. It's not used for complex surgery. Some procedures that use this type of sedation include: ??? Dental surgery ??? Breast biopsy, to take a sample of breast tissue ??? Endoscopy, to look at gastrointestinal problems ??? Bronchoscopy, tocheck for lung problems ??? Bone or joint realignment, to fix a broken bone or dislocated joint ???Minor foot or skin surgery ??? Electrical cardioversion, to restore a normal heart rhythm ??? Lumbar puncture, to assess neurological disease ?? Risks of procedural sedation Risks and possible side effects include: ??? Headache ??? Nausea and vomiting ??? Unpleasant memory of the procedure ??? Lowered rate of breathing ??? Changes in heart rate and blood pressure (rare) ??? Inhalation of stomach contents into your lungs (rare) Side effects will likely go away shortly after the procedure. Your healthcare team will watch your heart rate and breathing during and after your sedation. This is to help prevent problems. Your own risks may vary. They can be based on your age and your overall health. They also depend onthe type of sedation you are given. Talk with your healthcare provider about the risks that apply most to you. ?? Getting ready for procedural sedation Talk with your healthcare provider about how to get ready for your procedure. Tell them about all the medicines you take. This includes [id number] medicines, such as ibuprofen. It also includesvitamins, herbs, and other supplements. You may need to stop taking some medicines before the procedure, such as blood thinners and aspirin. If you smoke, you should stop. This is to lessen the chance of a lung problem. Talk with your healthcare provider if you need help to stop smoking. Tell your healthcare provider if you: ??? Have had any problems in the past with sedation or anesthesia ??? Have had any recent changes in your health, such as an infection or fever ??? Are or think you could be Also: ??? Ask a family member or friend to take you home after the procedure. You can???t drive on the day you have sedation. ??? Follow any directions you are given for not eating or drinking beforeprocedure. ??? Don't make any important decisions, such as financial or legal, on the day after youhave sedation. ??? Follow all other instructions from your healthcare provider. ?? During your procedural sedation You may have your procedure in a hospital or a medical clinic. Sedation is done by a trained healthcare provider. In general, you can expect the following: ??? You will be given medicine through an IV line in your arm or hand. Or you may receive a shot. The medicine may also be given by mouth. Or you may inhale it through a mask. ??? If you have medicine through an IV, you may feel the effects very quickly. You will start to feel relaxed and drowsy. ??? During the procedure, your heart rate, breathing, and blood pressure will be closely watched. Your breathing and blood pressure may decrease a little. But you will likely not need help with your breathing. You may receive a little extra oxygen. This is done through a mask or some soft plastic prongs under your nose. ??? You will probably be awake the entire time. If you do fall asleep, you should be easy to wake up, if needed. You shouldfeel little or no pain. ??? When your procedure is over, the sedative medicine will be stopped. ?? After your procedural sedation You will begin to feel more awake and aware. But you will likely be drowsy for a while afterward. You will be closely watched as you become more alert. You may have a faint memory of the procedure. Or you may not remember it at all. You should be able to return home within 1 to 2 hours after your procedure. Plan to have someone stay with you for a few hours. Side effects, such as headache and nausea, may go away quickly. Tell your healthcare provider if they continue. Don???t drive or make any important decisions for at least 24 hours. Be sure to follow all after-care directions. ?? When to call your healthcare provider Have someone call your healthcare provider right away if any of the following occur: ??? Drowsinessthat gets worse ??? Weakness or dizziness that gets worse ??? Repeated vomiting ??? Severe or ongoing pain from the procedure, not relieved by the pain medicine ??? Fever of 100.4?? F (38??C) or higher, or as directed by your healthcare provider ??? New rash ?? Call 911 Have someone call 911 if any of the following occur: ??? Shortness of breath ??? Chest pain ??? Loss of consciousness or you can't be awakened ?? Last Reviewed Date: 2021 ?? 2309-0396 [employer]. All rights reserved. This information is not intended as a substitute for professional medical care. Always follow your healthcare professional's instructions. ?? Patient Care team information Care Team Personnel Name: Mj Bonilla MD Position: Reference Physician Member Role: PCP Address: Address: [address] [place] [id number]- Care Team Related Persons Name: JANIE UNR Address: [address] [address]
--- NOTE | 2022-11-08 01:20 | PC.NURSE ---
this rn at bedside aTP completed at this time. pt a+o x 4 calm and cooperative. r sided weakness noted to show improvement
[2022-11-08] MEDS: 0.9 % Sodium Chloride 1,000 ML 500 ML IV (01:42)
--- NOTE | 2022-11-08 01:45 | PC.NURSE ---
this rn confirmed with dr nice TOTAL 500ml of NS
[2022-11-08] MEDS: Furosemide 20 MG/2 ML VIAL 10 MG IVPUSH (01:48)
--- NOTE | 2022-11-08 02:16 | PC.NURSE ---
Addendum entered by Micheline Mccracken 11/08/22 04:12: this rn noted small skin tear on scrotum, with minimal bleeding. this rn made glynn palafox aware of skin tear. no new orders Original Note: education and development manager placed [place] catheter
--- NOTE | 2022-11-08 02:17 | PC.NURSE ---
swallow eval automatic failed per facility protocol for pt to remain npo x 6hrs post tpa
--- NOTE | 2022-11-08 02:17 | PC.NURSE ---
med rec performed by this rn. utilized pt medication list provided by pt daughter
--- NOTE | 2022-11-08 02:20 | PC.NURSE ---
this rn at bedside. pt 1hr post tPA. pt a+o x 4. calm and cooperative. pt showing no s/s of adverse reaction. pt family at bedside
--- NOTE | 2022-11-08 03:02 | PC.NURSE ---
pt experienced sudden onset of nausea vomiting. pt reports did not feel nauseous prior . pt able to manage secretions. this rn to bedside. this rn made Kathryn ICU SUPERVISOR [employer] aware. awaiting new orders
[2022-11-08] MEDS: ondansetron HCL 4 MG/2 ML VIAL IVPUSH ×2 (03:07→06:06)
--- NOTE | 2022-11-08 04:13 | PM.CCHP ---
History of Present Illness Date of Service: 11/08/22 Attending physician on admission: Chelsi Woody Chief Complaint: Dyspnea, right-sided weakness, slurred speech Mr. Delgado is a 77-year-old male with past medical history of CVA,CHF, cardiomyopathy, DM type 2, COPD, and sleep apnea noncompliant with CPAP who presented to the ER with right-sided weakness, slurred speech, and progressively worsening difficulty breathing.? Family reported that symptoms began at 22:20. On arrival to the ER, ?the patient's blood pressure 107/55, heart rate 120, temp 100.1.? O2 sat 93% on 3 L nasal cannula. Laboratory data significant for WBC 9.2, platelet 135, sodium 146, BUN 31, creatinine 2.19.? ABG showed pH 7.31, pCO2 32, HC03 16, base excess -8.4. Imaging: CT/CT head for stroke 1.? No evidence of acute intracranial hemorrhage or edematous territorial infarction. 2.? Chronic encephalomalacia within the left occipitoparietal lobes. Mild underlying microangiopathy and generalized cerebral volume loss. 3.? Chronic waxing and waning nodular structure in the medial aspect of the left orbit consistent with an orbital varix. XR/XR chest 1V No focal consolidation. Coarsened appearance of the interstitium towards the lung bases may reflect airways disease. CT/CT angio head? neck stroke 1.? No evidence of acute intracranial hemorrhage or edematous territorial infarction. Chronic encephalomalacia within the left occipitoparietal lobes. Mild underlying microangiopathy and generalized cerebral volume loss. 2.? Chronic occlusion of the left ICA approximately 0.5 cm from its origin. 3.? High-grade (at least 80%) stenosis of the origin of the right ICA. 4.? The left-sided RANDAL and MCA vessels appear to cross-fill across the anterior communicating artery and through central leptomeningeal collateralization. 5.? Moderate atherosclerotic stenoses of the origins of the vertebral arteries bilaterally. 6.? Moderate multilevel degenerative spondyloarthropathy of the cervical spine. 7.? Emphysema. 8.? Chronic waxing and waning nodular structure in the medial aspect of the left orbit consistent with an orbital varix. ED COURSE: tPa was given at 00:20 per neurology recommendation. Review of Systems Constitutional: Constitutional: Reports as per HPI Eyes: Eyes: Reports no additional eye complaints ENT: Denies Normal hearing present ([place] at baseline) Gastrointestinal: Gastrointestinal: Reports nausea Genitourinary: Genitourinary: Reports difficulty urinating Musculoskeletal: Musculoskeletal: Reports back pain (chronic) Neurologic: Reports system reviewed and no additional complaints, except as documented, Denies Normal hearing present ([place] at baseline) and Denies Abnormal speech present [facility] Past Medical History Medical History Cardiomyopathy CHF (congestive heart failure) Chronic back pain CVA (cerebral vascular accident) LBBB (left bundle branch block) Lung nodule Oxygen dependent Sleep apnea Family History Family History Father Cirrhosis Mother Myocardial infarction Enlarged heart Sister No problems noted. Sister No problems noted. Surgical History Surgical History History of back surgery History of lithotripsy History of vasectomy Social History Social History Household Members: Spouse and Family Housing: House Do you presently have visiting nurse or other home services: Yes (grandson is BUSINESS INSURANCE AGENT, nurse once every six months) Alcohol intake: former Year quit: 1979 Patient Tobacco Use Status: Former Tobacco user Quit Date: 1979 Years Smoked: 20 +/- Smoked in Last 30 Days: No Use of substances other than those prescribed or required for medical reasons: No Substance Use Type: Marijuana Advance Directives: No Advance Directives Information Provided: Yes service: Yes Current occupational status: retired [employer] Allergies Allergy/AdvReac Type Severity Reaction Status Date / Time codeine [CODEINE] Allergy Intermediate RASH Verified 08/19/22 15:33 morphine [MORPHINE] Allergy Mild NAUSEA Verified 08/19/22 15:33 ibuprofen [From MOTRIN] Allergy Unknown NAUSEA Verified 08/19/22 15:33 Home Medications Medication Instructions Recorded Confirmed Last Taken Type albuterol sulfate 90 mcg/actuation 2 puff inhalation Q3-4H PRN 11/09/20 11/08/22 07/17/22 History aerosol inhaler (Ventolin HFA) Shortness Of Breath allopurinol 100 mg tablet 2 tab PO DAILY 11/09/20 11/08/22 07/19/22 History carisoprodol 350 mg tablet 2 tab PO TID 11/09/20 11/08/22 07/18/22 History glipizide 2.5 mg tablet, extended 1 tab PO BID 11/09/20 11/08/22 07/19/22 History release 24 hr lorazepam 1 mg tablet 1 tab PO TID 11/09/20 11/08/22 07/18/22 History omeprazole 20 mg capsule,delayed 1 cap PO DAILY@0630 11/09/20 11/08/22 07/18/22 History release simvastatin 20 mg tablet 1 tab PO DAILY 11/09/20 11/08/22 07/18/22 History losartan 100 mg tablet 100 mg PO DAILY@62907/20/22 11/08/22 Unknown History oxycodone 30 mg tablet,crush 30 mg PO BID 07/20/22 11/08/22 Unknown History resistant,extended release 12 hr (OxyContin) furosemide 20 mg tablet 20 mg PO QAM 08/19/22 11/08/22 Unknown History oxycodone 20 mg tablet,crush 20 mg PO BEDTIME 08/19/22 11/08/22 Unknown History resistant,extended release 12 hr (OxyContin) Physical Exam Vital Signs: Vital Signs: Last Vital Signs Temp 99.6 F 11/08/22 03:05 Pulse 112 H 11/08/22 04:00 Resp 12 11/08/22 04:00 BP 143/79 H 11/08/22 04:00 Pulse Ox 93 11/08/22 04:00 O2 Del Method Nasal Cannula 11/08/22 04:00 O2 Flow Rate 3 11/08/22 04:00 Oxygen Flow Rate 3 11/07/22 23:50 BMI result Body Mass Index 34.7 Const: General: no acute distress and alert Nutritional Appearance: obese Orientation/consciousness: patient oriented x3 (answering appropriately.) HEENT: Head: Yes normocephalic and Yes atraumatic General nose exam: Normal external nose present (Nares patent, septum midline, sinuses nontender bilaterally.) Mouth: Normal oral and palatal mucosa present (No thrush, tongue in midline, mucosa moist.) Throat: Yes other (No erythema, no exudate.) Eyes: General: appearance normal, both eyes and all related structures Conjunctivae: conjunctivae normal Sclerae: sclerae normal Pupils: Equal, round and reactive pupils present EOM: EOMs intact bilaterally Neck: Neck: Yes supple (no thyromegaly, trachea midline.) Carotids: normal carotid upstroke Resp: Auscultation: diminished lung sounds on the right throughout and on the left throughout Cardio: Jugular venous distension: no JVD Rate: tachycardic Rhythm: regular rhythm Heart sounds: no gallops, no murmurs and no rubs Peripheral pulses: Peripheral pulses 2+ throughout GI: Inspection: Yes obesity Palpation (GI): Soft to palpation (nondistended.) and nontender : Male General Exam: Yes lacerations (skin tear on scrotum near perineum from urinal use) Skin: Rashes: rashes noted (intergluteal cleft) Neuro: General: patient oriented x3 (answering appropriately.) Cranial nerves: Yes CN's II-XII intact bilaterally, Yes Facial sensation intact/muscles of mastication intact, Yes Equal, round and reactive pupils present, Yes Bilaterally intact EOM present, Yes Normal facial strength present, Yes Midline tongue present, Yes Normal gag reflex present, No Normal hearing present ([place] at baseline), Yes Ability to bilaterally rotate head present and Yes Ability to bilaterally elevate shoulders present Cognition (Neuro): normal cognition Speech: No Abnormal speech present Motor exam (neuro): strength not 5/5 throughout (Right lower extremity mild weakness) and Pronator motor function present pronator drift of right upper extremity Extrem: General: Yes full ROM, Yes capillary refill normal and Yes no clubbing, cyanosis or edema Psych: Mental Status: mental status grossly normal Speech and movement: Normal speech and movement present Affect: normal affect Attitude: cooperative Thought process: Normal thought process present Thought content: Normal thought content present Insight: Good insight present (Psych) Judgement: Good judgement present (Psych) Results Labs 11/07/22 23:36 11/07/22 23:36 Labs: Laboratory Results - last 24 hr 11/07/22 11/07/22 11/07/22 23:35 23:36 23:36 MCV 100.7 H MCH 31.4 MCHC 31.2 RDW 14.6 Plt Count 135 L D MPV 11.0 Immature Gran % (Auto) 0.5 H Neut % (Auto) 60.3 Lymph % (Auto) 16.7 L [place] % (Auto) 12.9 H Eos % (Auto) 9.3 H Baso % (Auto) 0.3 Lymph # (Auto) 1.5 [place] # (Auto) 1.2 Eos # (Auto) 0.9 H Baso # (Auto) 0.0 Abs Immat Gran (auto) 0.05 H Absolute Neuts (auto) 5.6 Absolute Nucleated RBC 0.000 Nucleated RBC % (auto) 0.0 PT 10.4 Whole Blood PT 13.1 INR 0.9 Whole Blood INR 1.1 APTT 27.8 Anion Gap Estim Creat Clear Calc Estimated GFR POC Glucose Random Glucose Calcium Total Creatine Kinase Troponin I High Sens 11/07/22 11/07/22 11/07/22 23:36 23:36 23:36 MCV MCH MCHC RDW Plt Count MPV Immature Gran % (Auto) Neut % (Auto) Lymph % (Auto) [place] % (Auto) Eos % (Auto) Baso % (Auto) Lymph # (Auto) [place] # (Auto) Eos # (Auto) Baso # (Auto) Abs Immat Gran (auto) Absolute Neuts (auto) Absolute Nucleated RBC Nucleated RBC % (auto) PT Whole Blood PT INR Whole Blood INR APTT Anion Gap 18 Estim Creat Clear Calc 38.3 Estimated GFR 29 POC Glucose 127 H Random Glucose 126 H Calcium 9.0 Total Creatine Kinase 99 Troponin I High Sens 14.4 Imaging Radiologist's Impressions: Impressions Head CT 11/07/22 23:36 IMPRESSION: 1. No evidence of acute intracranial hemorrhage or edematous territorial infarction. 2. Chronic encephalomalacia within the left occipitoparietal lobes. Mild underlying microangiopathy and generalized cerebral volume loss. 3. Chronic waxing and waning nodular structure in the medial aspect of the left orbit consistent with an orbital varix. This critical result was discussed with Dr. Johnson at 23:49 on 11/07/2022 and it was ascertained that the content and urgency of the report was understood at the time of direct communication. Chest X-Ray 11/08/22 00:27 IMPRESSION: No focal consolidation. Coarsened appearance of the interstitium towards the lung bases may reflect airways disease. Head/Neck CTA 11/08/22 01:08 IMPRESSION: 1. No evidence of acute intracranial hemorrhage or edematous territorial infarction. Chronic encephalomalacia within the left occipitoparietal lobes. Mild underlying microangiopathy and generalized cerebral volume loss. 2. Chronic occlusion of the left ICA approximately 0.5 cm from its origin. 3. High-grade (at least 80%) stenosis of the origin of the right ICA. 4. The left-sided RANDAL and MCA vessels appear to cross-fill across the anterior communicating artery and through central leptomeningeal collateralization. 5. Moderate atherosclerotic stenoses of the origins of the vertebral arteries bilaterally. 6. Moderate multilevel degenerative spondyloarthropathy of the cervical spine. 7. Emphysema. 8. Chronic waxing and waning nodular structure in the medial aspect of the left orbit consistent with an orbital varix. This critical result was discussed with Dr. Johnson at 01:48 on 11/08/2022 and it was ascertained that the content and urgency of the report was understood at the time of direct communication. Assessment and Plan (1) Cerebrovascular accident: Status: Acute (2) Congestive heart failure: Status: Acute (3) Cardiomyopathy: Status: Acute (4) Hypoxia: Status: Acute (5) Acute renal failure: Qualifiers: Acute renal failure type: unspecified Qualified Code(s): N17.9 - Acute kidney failure, unspecified Status: Acute Plan Assessment: 77-year-old male with past medical history of CVA,CHF, cardiomyopathy, renal insufficiency, DM type 2, COPD, and sleep apnea noncompliant with CPAP admitted to ICU for observation post tPa administration. Neuro: Stroke- new onset right-sided weakness,slurred speech. Initial head CT showed no acute infarct/bleed. NIH score 7. Head/neck CTA with no acute LVO? did show chronic occlusion of the left ICA approximately 0.5 cm from its origin. High-grade (at least 80%) stenosis of the origin of the right ICA. He is status post tPA. Patient does have slight weakness on the right but is almost back to baseline according to his daughter.? MRI in? AM. Appreciate neurology services. Cardiac: History of CHF, cardiomyopathy. Patient had cardiac cath in September at [facility]. Will request records. Last blood pressure 109/64. Will closely monitor blood pressure, heart rate.? Pulmonary: No acute issues. Renal: ? BUN 31, Creatinine 2.19.? Patient has chronic renal insufficiency, not on dialysis.He follows with Dr Ospina. IV hydration/diuresis to flush out IV contrast. Continue to closely monitor renal indices and urine output.? Endo: DM2. SS insulin per protocol. GI: No acute issues. Heme/onc: No acute issues. Misc:? no acute issues Prophylaxis: No DVT anticoagulation for 24hr post tPA Diet:? NPO per protocol. Speech language consult placed.? Time Spent With Patient Time: Total time managing care of this patient today ____ minutes.
[2022-11-08 05:32] LABS: VBG Base Excess 0.6 mmol/L; VBG HCO3 26 mmol/L (22-26); VBG pCO2 45 mmHg; VBG pH 7.36 (7.32-7.43); VBG pO2 81 mmHg
[2022-11-08 05:44] LABS: Venous Blood Gas Refer to POC result
[2022-11-08 05:48] LABS: Hemoglobin 13.7 g/dl (14.0-18.0); PLT CLUMP 1; Red Cell Distribution Width 14.5 % (11.0-16.0); SCAN SMEAR FLAG 1
[2022-11-08 05:50] LABS: Basophils Percent Auto 0.2 % (0-2); Eosinophils Absolute Auto 0.5 X10*3/uL (0.0-0.4); Eosinophils Percent Auto 5.7 % (0-4); Hematocrit 44.3 % (42.0-52.0); Imm Gran Abs Auto 0.05 X10*3/uL (0.00-0.03); Imm Gran Pct Auto 0.6 % (0.0-0.4); Lymphocytes Absolute Auto 1.1 X10*3/uL (1.2-4.9); Lymphocytes Percent Auto 12.9 % (20-40); Mean Corpuscular HGB Conc 30.9 g/dl (31.0-36.0); Mean Corpuscular Hemoglobin 31.2 pg (27.0-33.0); Mean Corpuscular Volume 100.9 fL (80.0-98.0); Mean Platelet Volume 11.3 fL (9.4-12.4); Monocytes Percent Auto 11.5 % (2-11); Neutrophils Absolute Auto 5.7 x10*3/uL (2.0-8.3); Neutrophils Percent Auto 69.1 % (45-73); Red Blood Count 4.39 X10*6/uL (4.60-5.80)
[2022-11-08 05:55] LABS: MANUAL DIFF FLAG NO; Platelet Count 126 X10*3/uL (160-400); White Blood Count 8.2 X10*3/uL (4.8-10.8)
[2022-11-08 06:07] LABS: Albumin Level 3.6 g/dL (3.5-5.0); Anion Gap 16 (12-20); Blood Urea Nitrogen 34 mg/dL (9-16); Calcium 9.1 mg/dL (8.4-10.2); Carbon Dioxide 23 mmol/L (22-29); Chloride 108 mmol/L (96-108); Creatinine Clr Calc Pharmacy 43.4; Estimated Glomerular Filt Rate 34; Glucose Random 145 mg/dL (60-115); Magnesium 1.9 mg/dL (1.6-2.6); Phosphorus 4.2 mg/dL (2.7-4.5); Potassium 4.4 mmol/L (3.3-5.1); Sodium 143 mmol/L (135-145)
--- NOTE | 2022-11-08 06:18 | PC.NURSE ---
ADMIT TO ICU APPROX 4AM POST TPA THERAPY IN ER DEPT..ALERT..ORIENTED X3..NO FACIAL DROOP..REMAINS WITH RIGHT SIDED WEAKNESS BUT SIGNIFICANTLY IMPROVED POST-TPA PER PATIENT AND DAUGHTER....ABLE TO RAIS ERIGHT LEG AND ARM >1 FOOT OFF/ABOVE BED.....SINUS TACH HR 112-114..O2 3 L/M..SAO2 93%...FRAZIER AND DYSPNEIC WHEN BED FLAT FOR POSITIONG..BUTTOCKS REDDENED...BOTTOM OF SCROTUM WITH SMALL SKIN TEAR WITH OLD BLOOD FROM ER DEPT PER ER REPORT...C/O INABILITY TO VOID...[place] [employer] CATHETER OFF..UNABLE TO VOID IN URINAL...BLADDER SCANNED 525ml...ICU SPECIAL EDUCATION INSTRUCTOR UPDATED...#16FR LUCIO INSERTED W/O RESISTANCE AND 550ml CLEAR YELLOW URINE OBTAINED..NO SIGNS OF BLEEDING..C/O URGE FOR BM..PLACED ON BEDPAN WITH NO RESULTS...SUBSEQUENTLY NAUSEOUS AND RETCHING...ZOFRAN 4MG IV X1 PER ICU SPECIAL EDUCATION INSTRUCTOR...LUCIO CONTINUES TO DRAIN CLEAR YELLOW URINE...SBP 100-110...MAP >70..ICU SPECIAL EDUCATION INSTRUCTOR AWAQRE...MENTATION UNCHANGED
--- NOTE | 2022-11-08 07:09 | PHA.MEDREC ---
Pharmacy Consult ? Medication Reconciliation Pharmacy has completed the medication reconciliation. Reviewed med rec done by nursing (Micheline).
[2022-11-08 07:31] LABS: Glucose, Whole Blood 149 mg/dL (60-115)
[2022-11-08] MEDS: Albuterol Sulfate (0.083%) 2.5 MG/3 ML VIAL.NEB INHALE ×4 (08:11→23:57)
[2022-11-08] MEDS: KCl 20 mEq in 0.45% Sod 20 MEQ/1,000 ML IV.SOLN 42 MEQ IVCONT (11:17)
[2022-11-08 11:34] LABS: Glucose, Whole Blood 143 mg/dL (60-115)
--- NOTE | 2022-11-08 13:41 | PM.CCPN ---
Subjective Subjective Date of Service: 11/08/22 Interval History: 77-year-old morbidly obese type 2 diabetic with chronic stage III renal failure with a history of ischemic heart disease and previous coronary stenting presented with right-sided weakness and brought in with in a very timely fashion with a negative CT scan of his head and he received tPA with significant reversal of some of that right-sided weakness so this was successful and his CT angiogram did not show any significant occlusive disease in the extracranial vessels he has also background COPD and obstructive sleep apnea and is not compliant in its treatment Critical Care Time (minutes): 35 Physical Exam Vital Signs: Vital Signs: Last Vital Signs Temp 99.1 F 11/08/22 13:00 Pulse 100 11/08/22 13:00 Resp 15 11/08/22 13:00 BP 122/75 11/08/22 13:00 Pulse Ox 92 11/08/22 13:00 O2 Del Method Nasal Cannula 11/08/22 13:00 O2 Flow Rate 3 11/08/22 13:00 Oxygen Flow Rate 3 11/07/22 23:50 BMI result Body Mass Index 35.3 pressure is 122/75 respiratory rate 14 oxygen saturation 92 and he is normal sinus rhythm with a rate of approximately 100 and there is definitely a no acute ST-T changes bedside echo shows globally normal systolic wall motion of the left ventricle without segmental wall motion abnormality 55% ejection fraction no primary valve or pericardial disease and his right ventricle appears normal as well lungs with somewhat diminished bilateral breath sounds no adventitious sounds abdomen distended but no organomegaly nontender Objective Data Labs 11/08/22 05:21 11/08/22 05:21 Labs: Laboratory Results - last 24 hr 11/07/22 11/07/22 11/07/22 23:35 23:36 23:36 WBC 9.2 RBC 4.56 L Hgb 14.3 Hct 45.9 MCV 100.7 H MCH 31.4 MCHC 31.2 RDW 14.6 Plt Count 135 L D MPV 11.0 Immature Gran % (Auto) 0.5 H Neut % (Auto) 60.3 Lymph % (Auto) 16.7 L [place] % (Auto) 12.9 H Eos % (Auto) 9.3 H Baso % (Auto) 0.3 Lymph # (Auto) 1.5 [place] # (Auto) 1.2 Eos # (Auto) 0.9 H Baso # (Auto) 0.0 Abs Immat Gran (auto) 0.05 H Absolute Neuts (auto) 5.6 Absolute Nucleated RBC 0.000 Nucleated RBC % (auto) 0.0 PT 10.4 Whole Blood PT 13.1 INR 0.9 Whole Blood INR 1.1 APTT 27.8 VBG pH VBG pCO2 VBG pO2 VBG HCO3 VBG O2 Saturation VBG Base Excess Sodium Potassium Chloride Carbon Dioxide Anion Gap BUN Creatinine Estim Creat Clear Calc Estimated GFR POC Glucose Random Glucose Calcium Phosphorus Magnesium Total Creatine Kinase Troponin I High Sens Albumin 11/07/22 11/07/22 11/07/22 23:36 23:36 23:36 WBC RBC Hgb Hct MCV MCH MCHC RDW Plt Count MPV Immature Gran % (Auto) Neut % (Auto) Lymph % (Auto) [place] % (Auto) Eos % (Auto) Baso % (Auto) Lymph # (Auto) [place] # (Auto) Eos # (Auto) Baso # (Auto) Abs Immat Gran (auto) Absolute Neuts (auto) Absolute Nucleated RBC Nucleated RBC % (auto) PT Whole Blood PT INR Whole Blood INR APTT VBG pH VBG pCO2 VBG pO2 VBG HCO3 VBG O2 Saturation VBG Base Excess Sodium 146 H Potassium 4.4 Chloride 107 Carbon Dioxide 25 Anion Gap 18 BUN 31 H Creatinine 2.19 H Estim Creat Clear Calc 38.3 Estimated GFR 29 POC Glucose 127 H Random Glucose 126 H Calcium 9.0 Phosphorus Magnesium Total Creatine Kinase 99 Troponin I High Sens 14.4 Albumin 11/08/22 11/08/22 11/08/22 05:21 05:21 05:22 WBC 8.2 RBC 4.39 L Hgb 13.7 L Hct 44.3 MCV 100.9 H MCH 31.2 MCHC 30.9 L RDW 14.5 Plt Count 126 L MPV 11.3 Immature Gran % (Auto) 0.6 H Neut % (Auto) 69.1 Lymph % (Auto) 12.9 L [place] % (Auto) 11.5 H Eos % (Auto) 5.7 H Baso % (Auto) 0.2 Lymph # (Auto) 1.1 L [place] # (Auto) 1.0 Eos # (Auto) 0.5 H Baso # (Auto) 0.0 Abs Immat Gran (auto) 0.05 H Absolute Neuts (auto) 5.7 Absolute Nucleated RBC 0.000 Nucleated RBC % (auto) 0.0 PT Whole Blood PT INR Whole Blood INR APTT VBG pH 7.36 VBG pCO2 45 VBG pO2 81 VBG HCO3 26 VBG O2 Saturation 96.0 VBG Base Excess 0.6 Sodium 143 Potassium 4.4 Chloride 108 Carbon Dioxide 23 Anion Gap 16 BUN 34 H Creatinine 1.95 H Estim Creat Clear Calc 43.4 Estimated GFR 34 POC Glucose Random Glucose 145 H Calcium 9.1 Phosphorus 4.2 Magnesium 1.9 Total Creatine Kinase Troponin I High Sens Albumin 3.6 11/08/22 11/08/22 07:28 11:29 WBC RBC Hgb Hct MCV MCH MCHC RDW Plt Count MPV Immature Gran % (Auto) Neut % (Auto) Lymph % (Auto) [place] % (Auto) Eos % (Auto) Baso % (Auto) Lymph # (Auto) [place] # (Auto) Eos # (Auto) Baso # (Auto) Abs Immat Gran (auto) Absolute Neuts (auto) Absolute Nucleated RBC Nucleated RBC % (auto) PT Whole Blood PT INR Whole Blood INR APTT VBG pH VBG pCO2 VBG pO2 VBG HCO3 VBG O2 Saturation VBG Base Excess Sodium Potassium Chloride Carbon Dioxide Anion Gap BUN Creatinine Estim Creat Clear Calc Estimated GFR POC Glucose 149 H 143 H Random Glucose Calcium Phosphorus Magnesium Total Creatine Kinase Troponin I High Sens Albumin Progress Note: A&P Assessment and plan (1) Cerebrovascular accident: Status: Acute (2) Congestive heart failure: Status: Acute (3) Cardiomyopathy: Status: Acute (4) Hypoxia: Status: Acute (5) Type 2 CO (myocardial infarction): Status: Acute (6) Elevated troponin: Status: Acute (7) Encephalopathy: Status: Acute (8) Altered mental status: Status: Acute (9) Elevated troponin level not due myocardial infarction: Status: Acute (10) Chronic renal failure (CRF), stage 3 (moderate): Status: Acute Plan the plan of course is to wait 24 hours under observation and get a formal echo in the morning and an MRI and that satisfied we can begin a diet start him on aspirin Quality Stroke Does the patient have a stroke diagnosis?: Yes Reason for No Anti-thrombotic by Day Two: N/A - Med Ordered VTE Prior VTE?: No VTE Risk Level:: Medical - moderate - high VTE Device Contraindication: N/A - Device Ordered VTE Drug Contraindication: N/A - Med Ordered
[2022-11-08] MEDS: fentaNYL 25 MCG PATCH.TD72 TRANSDERMA (14:13)
--- NOTE | 2022-11-08 18:05 | PM.NEUROCN ---
History of Present Illness Data of Consult Service Date: 11/08/22 Primary Care Provider: Unknown Physician HPI Reason for consult: Stroke 77 years old man with underlying diagnosis of CHF and chronic left ICA occlusion who came to hospital yesterday with sudden onset of right-sided weakness and difficulty speaking. With clinical diagnosis of ischemic stroke he was treated with intravenous tPA and admitted to ICU. Since then he has felt better and his speech has improved and weakness has also improved. There was no complications. There was no dizziness headache chest pain or shortness of breath at this time. Review of Systems Review of Systems: No recent trauma or seizure-like episode [facility] Past Medical History Medical History (Updated 11/08/22 @ 13:47 by Chelsi Woody MD) Cardiomyopathy CHF (congestive heart failure) Chronic back pain Chronic renal failure (CRF), stage 3 (moderate) CVA (cerebral vascular accident) LBBB (left bundle branch block) Lung nodule Oxygen dependent Sleep apnea Family History Family History Father Cirrhosis Mother Myocardial infarction Enlarged heart Sister No problems noted. Sister No problems noted. Surgical History Surgical History History of back surgery History of lithotripsy History of vasectomy Social History Social History Household Members: Spouse and Family Housing: House Do you presently have visiting nurse or other home services: Yes (grandson is [employer]LO[employer] S[employer] OFFICER, nurse once every six months) Alcohol intake: former Year quit: 1979 Patient Tobacco Use Status: Former Tobacco user Quit Date: 1979 Years Smoked: 20 +/- Smoked in Last 30 Days: No Use of substances other than those prescribed or required for medical reasons: No Substance Use Type: Marijuana Currently Displaying Signs/Symptoms of Drug Intoxication Withdrawal: No Advance Directives: No Advance Directives Information Provided: Yes service: Yes Current occupational status: retired Meds Allergies Allergy/AdvReac Type Severity Reaction Status Date / Time codeine [CODEINE] Allergy Intermediate RASH Verified 08/19/22 15:33 morphine [MORPHINE] Allergy Mild NAUSEA Verified 08/19/22 15:33 ibuprofen [From MOTRIN] Allergy Unknown NAUSEA Verified 08/19/22 15:33 Active Medications: Current Medications Albuterol Sulfate (Albuterol Sulfate (0.083%) 2.5 Mg/3 Ml Vial.Neb) 2.5 mg INHALE RQ4H [facility] Last Admin: 11/08/22 16:01 Dose: 2.5 mg Potassium Chloride/Sodium Chloride (Kcl 20 Meq In 0.45% Sod) 20 meq in 1,000 mls @ 42 mls/hr IVCONT .[id number] [facility] Last Admin: 11/08/22 11:17 Dose: 42 mls/hr Lorazepam (Lorazepam 2 Mg/Ml Vial) 0.25 mg IVPUSH Q6H PRN PRN Reason: anxiety/restlessness Home Medications Medication Instructions Recorded Confirmed Last Taken Type albuterol sulfate 90 mcg/actuation 2 puff inhalation Q4H PRN 11/09/20 11/08/22 07/17/22 History aerosol inhaler (Ventolin HFA) Shortness Of Breath allopurinol 100 mg tablet 2 tab PO DAILY 11/09/20 11/08/22 07/19/22 History carisoprodol 350 mg tablet 2 tab PO TID 11/09/20 11/08/22 07/18/22 History glipizide 2.5 mg tablet, extended 1 tab PO BID 11/09/20 11/08/22 07/19/22 History release 24 hr lorazepam 1 mg tablet 1 tab PO TID 11/09/20 11/08/22 07/18/22 History omeprazole 20 mg capsule,delayed 1 cap PO DAILY@0630 11/09/20 11/08/22 07/18/22 History release simvastatin 20 mg tablet 1 tab PO DAILY 11/09/20 11/08/22 07/18/22 History losartan 100 mg tablet 100 mg PO DAILY@0630 07/20/22 11/08/22 Unknown History oxycodone 30 mg tablet,crush 30 mg PO BID 07/20/22 11/08/22 Unknown History resistant,extended release 12 hr (OxyContin) furosemide 20 mg tablet 20 mg PO DAILY 08/19/22 11/08/22 Unknown History oxycodone 20 mg tablet,crush 20 mg PO BEDTIME 08/19/22 11/08/22 Unknown History resistant,extended release 12 hr (OxyContin) Physical Exam Vital Signs: Vital Signs: Last Vital Signs Temp 98.8 F 11/08/22 17:00 Pulse 99 07/16/23 17:00 Resp 13 11/08/22 17:00 BP 124/71 11/08/22 17:00 Pulse Ox 90 L 11/08/22 17:00 O2 Del Method Nasal Cannula 11/08/22 17:00 O2 Flow Rate 3 11/08/22 17:00 Oxygen Flow Rate 3 11/07/22 23:50 BMI result Body Mass Index 35.3 Neuro: Other: he is alert and awake with normal spontaneity of speech fluency comprehension and affect. Oral hygiene is poor. Visual odonnell are intact. Face is symmetrical. Tongue is midline. There is mild right-sided drift. There is mild right arm and leg weakness. Plantars are equivocal. There is no visual extinction speech is normal. Results Labs 11/08/22 05:21 11/08/22 05:21 Labs: Short CBC 11/07/22 11/08/22 Range/Units 23:36 05:21 WBC 9.2 8.2 (4.8-10.8) X10*3/uL Hgb 14.3 13.7 L (14.0-18.0) g/dl Hct 45.9 44.3 (42.0-52.0) % Plt Count 135 L D 126 L (160-400) X10*3/uL BMP 11/07/22 11/08/22 23:36 05:21 Sodium 146 H 143 Potassium 4.4 4.4 Chloride 107 108 Carbon Dioxide 25 23 BUN 31 H 34 H Creatinine 2.19 H 1.95 H Calcium 9.0 9.1 Cardiac Enzymes 11/07/22 Range/Units 23:36 Total Creatine Kinase 99 (38-174) U/L Liver Function 11/08/22 Range/Units 05:21 Albumin 3.6 (3.5-5.0) g/dL CT and CTA of brain revealed a chronic embolic looking left parieto-occipital cortical infarct. There was no obvious acute lesion. Left ICA was occluded and right was moderate to severely stenosed. Assessment and Plan (1) Cerebrovascular accident: Status: Acute 77 years old man with congestive heart failure and occluded left internal carotid artery came to hospital with new onset of difficulty speaking a right hemiparesis. He was treated with intravenous tPA and was feeling better as far as his speech and strength was concerned. He still has mild right hemiparesis. His head CT revealed a chronic embolic looking left parieto-occipital infarct. He was at risk for both embolic and hemodynamic stroke due to significant carotid disease resulting in occlusion of left ICA and moderate to severe stenosis of right. I would recommend proper hydration and adjustment of blood pressure medicine to maintain high normal blood pressure and to avoid hypotension. His last echocardiogram revealed EF of about 30-35%, which was low but not low enough to warrant long-term anticoagulation. For now, after 24 hours of tPA, clopidogrel 75 mg plus aspirin 81 mg daily is recommended, but major issue would be appropriate blood pressure control. As far as right carotid is concerned, it was not the cause of his stroke and should be manage medically. This is partly because collateral circulation is already established. Time Spent With Patient Time: Total time managing care of this patient today ____ minutes. Procedures Date of Service Date of Service: 11/08/22
[2022-11-08 18:41] LABS: Glucose, Whole Blood 125 mg/dL (60-115)
--- NOTE | 2022-11-08 19:39 | MHC.STROKE ---
Addendum entered by Tasha Balderas RN 11/09/22 14:36: I MET WITH THE PATIENT, HIS AND DAUGHTER TODAY AND REVIEWED ADDITIONAL STROKE EDUCATION, PLAN OF CARE, THAT THERAPY STAFF IS RECOMMENDING REHAB. I ANSWERED ALL OF THEIR QUESTIONS. HE WILL HAVE HIS MRI TOMORROW AFTERNOON. HIS EXPLAINED THAT HE IS CLAUSTROPHOBIC AND MAY NEED SOME MEDICATIONS PRIOR TO THE EXAM. I WILL NOTIFY THE PHYSICIAN OF THIS. Addendum entered by Tasha Balderas RN 11/09/22 10:08: I MET WITH THE TO PROVIDE STROKE EDUCATION, WE REVIEWED THE STROKE EDUCATION BOOKLET AND HIS RISK FACTORS. THE PATIENT IS TRANSFERRED TO THE HOSPITALIST SERVICE AND I WILL FOLLOW UP WITH THEM ON DR. BAKER'S RECOMMENDATIONS. Original Note: 11/07/22 23:11 EMS PRE-NOTIFIED, SOB AND RIGHT SIDED WEAKNESS ONSET 22:20. ARRIVED AT [facility] [place] 23:18. SEEN BY PROVIDER AT 23:27 NIHSS = 7, STOKE PROTOCOL ACTIVATED CTH, NO BLEED, TPA ALTEPLASE ORDERED AT 00:01, TPA ALTEPLASE BOLUS GIVEN AT 00:20. DELAY IN TPA > 60 MINUTES DUE TO CLARIFICATION OF DIAGNOSIS, SOB. ONSET OF SYMPTOMS CLARIFIED DUE TO SOB. SEE ED MD NOTES. CTA DONE NO LVO. FAILED SWALLOW SCREEN AND KEPT NPO. 11/08/22 17:28 DR. BAKER AND I SPOKE, SEE HIS REPORT. AT 19:21 I SPOKE WITH ROBERT BRYAN SUPERVISOR. WE DISCUSSED THE STROKE ORDERS, SHE ADDED A LIPID PANEL AND PT AND OT, ALL STROKE MEASURES MET. I WILL CONTINUE TO FOLLOW.
[2022-11-08] MEDS: LORazepam 2 MG/ML VIAL 0.25 MG IVPUSH (23:16)
[2022-11-09] VITALS (20 sets, daily range): BP systolic 126–175; BP diastolic 56–87; PULSE 90–101; RESP 12–20; TEMP 36.9–37.5; O2SAT 89–94; BMI 35.3
[2022-11-09 00:26] LABS: Glucose, Whole Blood 112 mg/dL (60-115)
[2022-11-09] MEDS: Albuterol Sulfate (0.083%) 2.5 MG/3 ML VIAL.NEB INHALE ×5 (04:18→19:19)
[2022-11-09 04:56] LABS: VBG Base Excess -0.4 mmol/L; VBG HCO3 23 mmol/L (22-26); VBG pCO2 34 mmHg; VBG pH 7.43 (7.32-7.43); VBG pO2 141 mmHg
[2022-11-09 04:56] LABS: MANUAL DIFF FLAG NO
[2022-11-09 05:02] LABS: Basophils Percent Auto 0.3 % (0-2); Eosinophils Absolute Auto 0.5 X10*3/uL (0.0-0.4); Eosinophils Percent Auto 7.9 % (0-4); Hematocrit 44.1 % (42.0-52.0); Hemoglobin 13.7 g/dl (14.0-18.0); Imm Gran Abs Auto 0.03 X10*3/uL (0.00-0.03); Imm Gran Pct Auto 0.5 % (0.0-0.4); Lymphocytes Absolute Auto 1.2 X10*3/uL (1.2-4.9); Lymphocytes Percent Auto 18.9 % (20-40); Mean Corpuscular HGB Conc 31.1 g/dl (31.0-36.0); Mean Corpuscular Hemoglobin 31.2 pg (27.0-33.0); Mean Corpuscular Volume 100.5 fL (80.0-98.0); Mean Platelet Volume 10.5 fL (9.4-12.4); Monocytes Absolute Auto 0.9 X10*3/uL (0.1-1.2); Monocytes Percent Auto 13.6 % (2-11); Neutrophils Absolute Auto 3.7 x10*3/uL (2.0-8.3); Neutrophils Percent Auto 58.8 % (45-73); Platelet Count 114 X10*3/uL (160-400); Red Blood Count 4.39 X10*6/uL (4.60-5.80); Red Cell Distribution Width 14.1 % (11.0-16.0); White Blood Count 6.3 X10*3/uL (4.8-10.8)
[2022-11-09 05:19] LABS: Albumin Level 3.5 g/dL (3.5-5.0); Anion Gap 17 (12-20); Blood Urea Nitrogen 28 mg/dL (9-16); Calcium 9.3 mg/dL (8.4-10.2); Carbon Dioxide 22 mmol/L (22-29); Chloride 111 mmol/L (96-108); Cholesterol 169 mg/dL; Creatinine Clr Calc Pharmacy 61.3; Estimated Glomerular Filt Rate 50; Glucose Random 116 mg/dL (60-115); HDL Cholesterol 42 mg/dL; LDL Cholesterol Calculated 97 mg/dl; Magnesium 2.1 mg/dL (1.6-2.6); Phosphorus 3.3 mg/dL (2.7-4.5); Sodium 146 mmol/L (135-145); Triglycerides 154 mg/dL
[2022-11-09 05:23] LABS: Venous Blood Gas Refer to POC result
[2022-11-09] MEDS: KCl 20 mEq in 0.45% Sod 20 MEQ/1,000 ML IV.SOLN 42 MEQ IVCONT (06:15)
--- NOTE | 2022-11-09 07:00 | CA_ITS ---
Transthoracic Echocardiogram Patient (Last, First, Middle): Zane Delgado J Gender: Male Date of : 1945 Age: 77 Procedure Date: 11/09/2022 Procedure Type: Transthoracic Echocardiogram Location: ICU Height: 182.88 cm Weight: 117.94 kg BSA: 2.38 m2 Heart Rate: 98 bpm BP: 160 / 87 mmHg Truck Terminal Manager: SB Referring MD: Chelsi Woody MD Symptoms: new cva Study Quality: Fair/restricted mobility/supine/HOB up/back pain ECG Rhythm: Sinus Conclusions: - Normal left ventricular size and systolic function. The visually estimated ejection fraction is between 55-60%. - Normal right ventricular cavity size and systolic function. - The left atrium is normal in size. There is no evidence of interatrial shunt by agitated saline. - There is moderate mitral annular calcification. Findings Procedure Information Contrast agent, definity, is being given per protocol without apparent complications. The quality of the study was technically difficult. The study quality is limited by patients body habitus. Left Ventricle Normal left ventricular size and systolic function. The visually estimated ejection fraction is between 55-60%. Abnormal diastolic function is noted. Spectral Doppler is indicative of an impaired relaxation filling pattern. Filling pressures are indeterminate. Right Ventricle Normal right ventricular cavity size and systolic function. Atria The left atrium is normal in size. There is no evidence of interatrial shunt by agitated saline. The right atrium is normal in size. Aortic Valve The aortic valve was not well visualized. There is no aortic valve stenosis. There is no aortic valve regurgitation. Mitral Valve There is moderate mitral annular calcification. There is no mitral valve regurgitation. There is no mitral valve stenosis. Pulmonic Valve The pulmonic valve was not well visualized. Tricuspid Valve The tricuspid valve was not well visualized. Normal right atrial pressure. Great Vessels The aorta was not well visualized. The pulmonary artery was not well visualized. Venous The inferior vena cava is normal in size and collapses greater than 50% with inspiration. Pericardium/Pleural There is no evidence of pericardial effusion. Prior Study Comparison Changes noted compared to prior study dated: 07/20/2022. Limited study, LV function has normalized (was 32% previously). Measurements 2D Linear Measurements LVOT Diam: 2.10 3.0+(-)1.3 cm 2D Systolic Function EF 4C: 57.20 >55% Mitral Valve MV VTI: 0.25 MV Pk Neel: 1.35 MV Mn Neel: 0.81 MV Pk Grad: 7.00 MV Mn Grad: 3.00 MV Pk E: 0.87 MV PK A: 1.24 MV Decel Time: 147.00 E/A: 0.70 E'Medial: 8.05 E/E' Med: 10.90 PHT: 43.00 MVA PHT: 5.12 MVA Continuity: 3.22 Decel [place]: 5.93 Aortic Valve AoV Pk Neel: 1.39 AoV Mn Neel: 1.01 AoV VTI: 0.26 AoV Pk Grad: 8.00 Aov Mn Grad: 5.00 DARI Cont.VTI: 3.06 LVOT LVOT Pk Neel: 1.04 LVOT Mn Neel: 0.71 LVOT VTI: 0.23 LVOT Pk Grad: 4.00 LVOT Mn Grad: 2.00 LVOT Diam: 2.10 LVOT Area: 3.46 Diastolic Function MV Pk E: 0.87 MV Pk A: 1.24 E/A: 0.70 E'Medial: 8.05 E/E' Med: 10.90 Right Ventricle TAPSE (mm): 23.10 TVS' Neel: 21.00 Tricuspid Valve RA Press: 3.00 Pulmonary Veins Pulm Vein S/D 1.30 Updated in Other Vendor System with Status of Final Edison Graham MD electronically signed on 11/09/2022 2:52:32 PM with status of Final
[2022-11-09] MEDS: oxyCODONE HCl ER 10 MG TAB.ER.12H 30 MG PO ×2 (08:48→18:21)
--- NOTE | 2022-11-09 11:32 | P.PNCC_ITS ---
Subjective Subjective Date of Service: 11/09/22 Interval History: 77-year-old gentleman with underlying history of prior CVA, and diabetes mellitus, CHF intermittently a on 2 L of supplemental oxygen, KAREN noncompliant with CPAP, COPD admitted 11/08/2022 with right-sided weakness and slurring of the speech. On CT head no bleeding. Patient had tPA administered and was admitted to intensive care unit for close monitoring. Over the course 24 hours with resolution of aphasia and significant improvement in right-sided weakness. Evaluated by neurology service, physical, and occupational therapy. Patient passed swallow evaluation. No events overnight. Critical Care Time (minutes): 0 Physical Exam Vital Signs: Vital Signs: Last Vital Signs Temp 98.6 F 11/09/22 11:22 Pulse 100 11/09/22 11:22 Resp 20 11/09/22 11:22 BP 138/65 11/09/22 11:22 Pulse Ox 92 11/09/22 11:22 O2 Del Method Nasal Cannula 11/09/22 11:22 O2 Flow Rate 2 11/09/22 11:22 Oxygen Flow Rate 3 11/07/22 23:50 BMI result Body Mass Index 35.3 Const: General: no acute distress, alert and awake Eyes: Sclerae: sclerae normal EOM: EOMs intact bilaterally Neck: Neck: Yes no lymphadenopathy, Yes trachea midline and Yes supple Resp: Effort & Inspection: normal respiratory effort and no respiratory distress Auscultation: clear to auscultation bilaterally Cardio: Rate: regular rate Rhythm: regular rhythm Heart sounds: no gall ops, no murmurs and no rubs GI: Palpation (GI): Soft to palpation and Other GI palpation findings present ( Nontender) Auscultation: normal bowel sounds Extrem: General: Yes no pedal edema, No clubbing and No cyanosis Objective Data Labs 11/09/22 04:49 11/09/22 04:49 Labs: Laboratory Results - last 24 hr 11/08/22 11/08/22 11/09/22 11:29 18:35 00:21 WBC RBC Hgb Hct MCV MCH MCHC RDW Plt Count MPV Immature Gran % (Auto) Neut % (Auto) Lymph % (Auto) [place] % (Auto) Eos % (Auto) Baso % (Auto) Lymph # (Auto) [place] # (Auto) Eos # (Auto) Baso # (Auto) Abs Immat Gran (auto) Absolute Neuts (auto) Absolute Nucleated RBC Nucleated RBC % (auto) VBG pH VBG pCO2 VBG pO2 VBG HCO3 VBG O2 Saturation VBG Base Excess Sodium Potassium Chloride Carbon Dioxide Anion Gap BUN Creatinine Estim Creat Clear Calc Estimated GFR POC Glucose 143 H 125 H 112 Random Glucose Calcium Phosphorus Magnesium Albumin Triglycerides Cholesterol LDL Cholesterol, Calc HDL Cholesterol 11/09/22 11/09/22 11/09/22 04:47 04:49 04:49 WBC 6.3 RBC 4.39 L Hgb 13.7 L Hct 44.1 MCV 100.5 H MCH 31.2 MCHC 31.1 RDW 14.1 Plt Count 114 L MPV 10.5 Immature Gran % (Auto) 0.5 H Neut % (Auto) 58.8 Lymph % (Auto) 18.9 L [place] % (Auto) 13.6 H Eos % (Auto) 7.9 H Baso % (Auto) 0.3 Lymph # (Auto) 1.2 [place] # (Auto) 0.9 Eos # (Auto) 0.5 H Baso # (Auto) 0.0 Abs Immat Gran (auto) 0.03 Absolute Neuts (auto) 3.7 Absolute Nucleated RBC 0.000 Nucleated RBC % (auto) 0.0 VBG pH 7.43 VBG pCO2 34 VBG pO2 141 VBG HCO3 23 VBG O2 Saturation 99.0 VBG Base Excess -0.4 Sodium 146 H Potassium 4.0 Chloride 111 H Carbon Dioxide 22 Anion Gap 17 BUN 28 H Creatinine 1.38 Estim Creat Clear Calc 61.3 Estimated GFR 50 POC Glucose Random Glucose 116 H Calcium 9.3 Phosphorus 3.3 Magnesium 2.1 Albumin 3.5 Triglycerides 154 Cholesterol 169 LDL Cholesterol, Calc 97 HDL Cholesterol 42 Progress Note: A&P Assessment and plan (1) Cerebrovascular accident: Status: Acute (2) Congestive heart failure: Status: Acute (3) Chronic renal failure (CRF), stage 3 (moderate): Status: Acute (4) Diabetes mellitus: Status: Acute Plan Assessment: 77-year-old gentleman admitted with acute CVA with right-sided weakness slowing thus pH, now status post tPA with resolution/significant improvement in his symptoms. Plan: Neuro: Acute severe status post tPA. Aphasia resolved. Right upper extremity weakness improved significantly. Neurology service care appreciated. Cardiac: No acute issues. Underlying congestive heart failure. Pulmonary: No acute issues. Underlying COPD and KAREN noncompliant with CPAP. Underlying chronic hypoxic respiratory failure requiring up to 2 L of continuous flow oxygen. Renal: No acute issues. Endo: No acute issues. Underlying diabetes mellitus. GI: No acute issues. ID: No acute issues Heme/Onc: No acute issues. Psych: No acute issues. Miscellaneous: No acute issues. Underlying chronic back pain on chronic opioids. Prophylaxis: Pneumatic compression Diet: Regular Quality Stroke Does the patient have a stroke diagnosis?: Yes Reason for No Anti-thrombotic by Day Two: N/A - Med Ordered VTE Prior VTE?: No VTE Risk Level:: Medical - moderate - high VTE Device Contraindication: N/A - Device Ordered VTE Drug Contraindication: N/A - Med Ordered
[2022-11-09 12:04] LABS: Glucose, Whole Blood 201 mg/dL (60-115)
[2022-11-09] MEDS: Clopidogrel Bisulfate 75 MG TABLET PO (13:15)
[2022-11-09] MEDS: Aspirin Enteric Coated 81 MG TABLET.DR PO (13:15)
--- NOTE | 2022-11-09 14:28 | PM.EVENT ---
Event Note Date of Service: 11/09/22 Event Note: patient trnaferred from icu today(seen by icu already) patient is seen and examined again feelin better denies any chest pain or sob or dizziness Physical exam : unchanged as per icu. assessment and plan coordinated in APCs note, Agree with the plan in addition: neuro eval noted -added asa/plavix, mri pending Time Spent With Patient Time: Total time managing care of this patient today ____ minutes.
[2022-11-09 16:14] LABS: Glucose, Whole Blood 177 mg/dL (60-115)
[2022-11-09] MEDS: Insulin Lispro 100 UNIT/ML 3 ML VIAL SUBCUT (16:33)
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
[2022-11-09 19:47] LABS: Glucose, Whole Blood 122 mg/dL (60-115)
[2022-11-09] MEDS: oxyCODONE HCl Immed Release 15 MG TABLET PO (20:14)
[2022-11-10] VITALS (11 sets, daily range): BP systolic 121–194; BP diastolic 70–84; PULSE 91–110; RESP 16–20; TEMP 36.4–37.1; O2SAT 88–94
[2022-11-10 06:55] LABS: MANUAL DIFF FLAG NO
[2022-11-10 06:58] LABS: Basophils Percent Auto 0.4 % (0-2); Eosinophils Absolute Auto 0.7 X10*3/uL (0.0-0.4); Eosinophils Percent Auto 9.8 % (0-4); Hematocrit 42.9 % (42.0-52.0); Hemoglobin 13.7 g/dl (14.0-18.0); Imm Gran Abs Auto 0.05 X10*3/uL (0.00-0.03); Imm Gran Pct Auto 0.7 % (0.0-0.4); Lymphocytes Absolute Auto 1.2 X10*3/uL (1.2-4.9); Lymphocytes Percent Auto 17.5 % (20-40); Mean Corpuscular HGB Conc 31.9 g/dl (31.0-36.0); Mean Corpuscular Hemoglobin 31.3 pg (27.0-33.0); Mean Corpuscular Volume 97.9 fL (80.0-98.0); Mean Platelet Volume 10.6 fL (9.4-12.4); Monocytes Absolute Auto 0.8 X10*3/uL (0.1-1.2); Monocytes Percent Auto 11.2 % (2-11); Neutrophils Absolute Auto 4.1 x10*3/uL (2.0-8.3); Neutrophils Percent Auto 60.4 % (45-73); Platelet Count 134 X10*3/uL (160-400); Red Blood Count 4.38 X10*6/uL (4.60-5.80); White Blood Count 6.8 X10*3/uL (4.8-10.8)
[2022-11-10 07:07] LABS: Albumin Level 3.8 g/dL (3.5-5.0); Anion Gap 14 (12-20); Blood Urea Nitrogen 26 mg/dL (9-16); Calcium 9.3 mg/dL (8.4-10.2); Carbon Dioxide 24 mmol/L (22-29); Chloride 111 mmol/L (96-108); Creatinine Clr Calc Pharmacy 70.5; Estimated Glomerular Filt Rate 59; Glucose Random 141 mg/dL (60-115); Phosphorus 2.2 mg/dL (2.7-4.5); Potassium 3.9 mmol/L (3.3-5.1); Sodium 145 mmol/L (135-145)
[2022-11-10 07:40] LABS: Glucose, Whole Blood 146 mg/dL (60-115)
[2022-11-10] MEDS: Clopidogrel Bisulfate 75 MG TABLET PO (07:48)
[2022-11-10] MEDS: Aspirin Enteric Coated 81 MG TABLET.DR PO (07:49)
[2022-11-10] MEDS: oxyCODONE HCl ER 10 MG TAB.ER.12H 30 MG PO ×2 (07:49→20:09)
[2022-11-10] MEDS: Albuterol Sulfate (0.083%) 2.5 MG/3 ML VIAL.NEB INHALE ×4 (08:10→19:29)
--- NOTE | 2022-11-10 09:10 | MHC.CM.PN ---
CM met with Patient at bedside and addressed IMM with him. Patient was physically unable to sign the IMM; it was discussed verbally with him and the original was given to Patient and a copy has been placed on the chart. Patient lives in a house with his and Adult Son/HCP/Kaleb and he required no services nor DME INFORMATION BROKER. PT is recommending Acute Rehab and CM has initiated and will follow for dc planning/ Patient is verena allen and his PC is Dr. Mj Bonilla.
--- NOTE | 2022-11-10 09:51 | HO.PM.IMPN ---
Subjective Subjective Date of Service: 11/10/22 Interval History: speech still slur, no other new neuro changes Physical Exam Vital Signs: Vital Signs: Last Vital Signs Temp 97.9 F 11/10/22 07:57 Pulse 101 H 11/10/22 08:11 Resp 20 11/10/22 08:11 BP 178/84 H 11/10/22 07:57 Pulse Ox 92 11/10/22 07:57 O2 Del Method Nasal Cannula 11/10/22 07:57 O2 Flow Rate 2 11/10/22 07:57 Oxygen Flow Rate 3 11/07/22 23:50 BMI result Body Mass Index 35.3 Const: Other: General: AO X 3, no acute distress Resp: CTA bilateral CVS: S1,S2,RRR GI: +BS, NT, no distention Skin: No rash Neuro: motor grossly intact, slur speech Psych: appropriate affect , Objective Data Active Medications Albuterol Sulfate (Albuterol Sulfate (0.083%) 2.5 Mg/3 Ml Vial.Neb) 2.5 mg INHALE RQ4H [facility] Last Admin: 11/10/22 08:10 Dose: 2.5 mg Documented By: MISAEL Aspirin (Aspirin Enteric Coated 81 Mg Tablet.) 81 mg PO DAILY [facility] Last Admin: 11/10/22 07:49 Dose: 81 mg Documented By: ELISABETH Clopidogrel Bisulfate (Clopidogrel Bisulfate 75 Mg Tablet) 75 mg PO DAILY [facility] Last Admin: 11/10/22 07:48 Dose: 75 mg Documented By: ELISABETH Insulin Human Lispro (Insulin Lispro 100 Unit/Ml 3 Ml Vial) 0 unit SUBCUT QIDACHS [facility]; Protocol Last Admin: 11/10/22 07:39 Dose: Not Given Documented By: ELISABETH Non-Admin Reason: See Note Lorazepam (Lorazepam 2 Mg/Ml Vial) 0.25 mg IVPUSH Q6H PRN PRN Reason: anxiety/restlessness Last Admin: 11/08/22 23:16 Dose: 0.25 mg Documented By: LARISA Oxycodone HCl (Oxycodone Hcl Er 10 Mg Tab.Er.12h) 30 mg PO BID@0700,1900 [facility] Last Admin: 11/10/22 07:49 Dose: 30 mg Documented By: HO.SOFFAA Labs 11/10/22 06:45 11/10/22 06:45 Labs: Laboratory Results - last 24 hr 11/09/22 11/09/22 11/09/22 11:59 16:08 19:38 MCV MCH MCHC RDW Plt Count MPV Immature Gran % (Auto) Neut % (Auto) Lymph % (Auto) [place] % (Auto) Eos % (Auto) Baso % (Auto) Lymph # (Auto) [place] # (Auto) Eos # (Auto) Baso # (Auto) Abs Immat Gran (auto) Absolute Neuts (auto) Absolute Nucleated RBC Nucleated RBC % (auto) Anion Gap Estim Creat Clear Calc Estimated GFR POC Glucose 201 H 177 H 122 H Random Glucose Calcium Phosphorus Magnesium Albumin 11/10/22 11/10/22 11/10/22 06:45 06:45 07:33 MCV 97.9 MCH 31.3 MCHC 31.9 RDW 14.0 Plt Count 134 L MPV 10.6 Immature Gran % (Auto) 0.7 H Neut % (Auto) 60.4 Lymph % (Auto) 17.5 L [place] % (Auto) 11.2 H Eos % (Auto) 9.8 H Baso % (Auto) 0.4 Lymph # (Auto) 1.2 [place] # (Auto) 0.8 Eos # (Auto) 0.7 H Baso # (Auto) 0.0 Abs Immat Gran (auto) 0.05 H Absolute Neuts (auto) 4.1 Absolute Nucleated RBC 0.000 Nucleated RBC % (auto) 0.0 Anion Gap 14 Estim Creat Clear Calc 70.5 Estimated GFR 59 POC Glucose 146 H Random Glucose 141 H Calcium 9.3 Phosphorus 2.2 L Magnesium 2.0 Albumin 3.8 Assessment and Plan (1) Diabetes mellitus: Status: Acute (2) Cerebrovascular accident: Status: Acute Plan 77-year-old gentleman with underlying history of prior CVA, and diabetes mellitus, CHF intermittently a on 2 L of supplemental oxygen, KAREN noncompliant with CPAP, COPD admitted 11/08/2022 with right-sided weakness and slurring of the speech.? On CT head no bleeding.? Patient had tPA administered and was admitted to intensive care unit for close monitoring.? Over the course 24 hours with resolution of aphasia and significant improvement in right-sided weakness.? Evaluated by neurology service, physical, and occupational therapy.? Patient passed swallow evaluation. CVA s/p tpa, ICA stenosis.. neuro recom plavix, asa, statin and BP med adjustment for better control dm--retarting home meds + SSI chronic pain, resume home pain meds gerd prilosec hiostory of gout--allopurinol obesity weight loss advise PT is recommending str dvt prophylasxis--add lovenox need for inpt: stroke, need acute rehab Time Spent With Patient Time: Total time managing care of this patient today ____ minutes. Quality Stroke Does the patient have a stroke diagnosis?: Yes Reason for No Anti-thrombotic by Day Two: N/A - Med Ordered VTE Prior VTE?: No VTE Risk Level:: Medical - moderate - high VTE Device Contraindication: N/A - Device Ordered VTE Drug Contraindication: N/A - Med Ordered
[2022-11-10] MEDS: allopurinoL 100 MG TABLET 200 MG PO (10:27)
[2022-11-10] MEDS: Empagliflozin 10 MG TABLET PO (10:27)
[2022-11-10] MEDS: Furosemide 20 MG TABLET PO (10:27)
[2022-11-10] MEDS: Omeprazole 20 MG CAPSULE.DR PO (10:27)
[2022-11-10] MEDS: Losartan Potassium 50 MG TABLET 100 MG PO (10:27)
[2022-11-10] MEDS: LORazepam 1 MG TABLET PO ×3 (10:27→20:10)
[2022-11-10] MEDS: carvediloL 3.125 MG TABLET PO ×2 (10:27→20:09)
[2022-11-10] MEDS: carisoprodoL 350 MG TABLET 700 MG PO ×3 (10:28→20:08)
--- NOTE | 2022-11-10 11:35 | MHC.CM.PN ---
Patient has been accepted at his first choice [facility] pending MRI(machine is not currently working). [facility] is looking into the possibility of admitting Patient without an MRI but there is not a decision on that yet. CM has informed MD and will follow.
[2022-11-10] MEDS: glipiZIDE XL 2.5 MG TAB.ER.24 PO ×2 (11:37→20:09)
[2022-11-10] MEDS: Enoxaparin Sodium 40 MG/0.4 ML SYRINGE SUBCUT (11:37)
[2022-11-10 11:42] LABS: Glucose, Whole Blood 139 mg/dL (60-115)
--- NOTE | 2022-11-10 14:51 | MHC.SL.SOA ---
Referring Provider: Kathryn Gant Reason for Referral: Speech/Lang/Cognitive assessment, status post CVA Date of Plan of Treatment:11/09/22 Onset of Symptoms/Illness:11/08/22 Date Treatment Started:11/09/22 Medical Diagnosis:(1) Cerebrovascular accident: Status: Acute (2) Congestive heart failure: Status: Acute (3) Cardiomyopathy: Status: Acute (4) Hypoxia: Status: Acute (5) Acute renal failure: Per Neurologists report: Head CT revealed a chronic embolic looking left parieto-occipital infarct. He was at risk for both embolic and hemodynamic stroke due to significant carotid disease resulting in occlusion of left ICA and moderate to severe stenosis of right. Primary Speech Language Diagnosis:R47.01 Aphasia Secondary Speech Language Diagnosis: Number of Authorized Visits Remaining: Authorization End Date: Reason for Visit:[id number] Individual Treatment Other: Subjective:Pt is in his room with his present. They inform they chose to pursue acute rehab at [facility] in [place]. Objective: Pt completed the [place] Cognitive Assessment (MoCA) with a score of 6/30. Difficulty following complex instructions negatively impacted his score. Assessment:Zane had more difficulty with Visuospatial/Executive tasks his clock draw consisted of a contoured prairie island and two misplaced hands. He did not draw numbers in the clock despite cues to do so. He named 3 of 3 animals correctly. He demonstrated difficulty with sustained attention (list of letters) and alternating attention (trails). He was not able to subtract 7 from 100. He was not able to state similarities between category items. He was oriented to city only. He recalled 3 of 10 words from a 5 word list in immediate context, he was not able to recall any words after a delay. Category cues were not successful in aiding recall, multiple choice improved recall yielding a Memory Index Score of 3/15. While he remains in the acute stage of injury, his difficulty with these tasks suggest that as language demand increase, his performance my suffer. He will benefit from simple commands, and repetition of important information at his next level of care. Notes: Ongoing assessment of speech/language/cognition Plan: Goal # : Status of Goal: Goal # : Status of Goal: Goal # : Status of Goal: Goal # : Status of Goal: Seen by: Graduate/Clinical Fellow: No Supervisory Statement: f_Reg Query Last Value , [facility] [place] [facility] Speech Language Pathologist: Dante Perez M.A., [facility]
--- NOTE | 2022-11-10 15:11 | PC.RT ---
pt has been refusing cpap at night for 3 days. Will dc this.
[2022-11-10 15:44] LABS: Glucose, Whole Blood 139 mg/dL (60-115)
[2022-11-10 19:43] LABS: Glucose, Whole Blood 161 mg/dL (60-115)
[2022-11-10] MEDS: oxyCODONE HCl ER 10 MG TAB.ER.12H 20 MG PO (20:09)
[2022-11-11] VITALS (7 sets, daily range): BP systolic 117–141; BP diastolic 57–73; PULSE 78–92; RESP 16–20; TEMP 36–36.6; O2SAT 92–96
[2022-11-11] MEDS: Losartan Potassium 50 MG TABLET 100 MG PO (05:42)
[2022-11-11] MEDS: Omeprazole 20 MG CAPSULE.DR PO (05:42)
[2022-11-11 07:27] LABS: Glucose, Whole Blood 122 mg/dL (60-115)
[2022-11-11] MEDS: Albuterol Sulfate (0.083%) 2.5 MG/3 ML VIAL.NEB INHALE ×3 (07:57→15:34)
[2022-11-11] MEDS: oxyCODONE HCl ER 10 MG TAB.ER.12H 30 MG PO (09:25)
[2022-11-11] MEDS: carisoprodoL 350 MG TABLET 700 MG PO ×2 (09:25→15:26)
[2022-11-11] MEDS: carvediloL 3.125 MG TABLET PO (09:26)
[2022-11-11] MEDS: allopurinoL 100 MG TABLET 200 MG PO (09:26)
[2022-11-11] MEDS: Furosemide 20 MG TABLET PO (09:26)
[2022-11-11] MEDS: LORazepam 1 MG TABLET PO ×2 (09:26→15:26)
[2022-11-11] MEDS: glipiZIDE XL 2.5 MG TAB.ER.24 PO (09:26)
[2022-11-11] MEDS: Clopidogrel Bisulfate 75 MG TABLET PO (09:26)
[2022-11-11] MEDS: Empagliflozin 10 MG TABLET PO (09:26)
[2022-11-11] MEDS: Atorvastatin Calcium 10 MG TABLET PO (09:26)
[2022-11-11] MEDS: Aspirin Enteric Coated 81 MG TABLET.DR PO (09:26)
--- NOTE | 2022-11-11 09:42 | P.DS_ITS ---
DS: Providers Provider Date of Service: 11/11/22 Date of admission: 11/08/22 02:07 Primary care physician: Mj Bonilla MD Consults: 11/08/22 02:07 Consult to Neurology Stat Consulting Provider: Mark Nunn Reason for consultation: stroke Has provider been notified: Yes DS: Diagnosis Discharge Diagnosis (1) Diabetes mellitus: Status: Acute (2) Cerebrovascular accident: Status: Acute DS: Summary Hospital Course Hospital Course: admission hpi Mr. Delgado is a?77-year-old male with past medical history of CVA,CHF, car diomyopathy, DM type 2, COPD, and sleep apnea noncompliant with CPAP who presented to the ER with right-sided weakness, slurred speech, and progressively worsening difficulty breathing.? Family reported that symptoms began at 22:20. On arrival to the ER,??the patient's blood pressure 107/55, heart rate 120, temp 100.1.? O2 sat 93% on 3 L nasal cannula. Laboratory data significant for WBC 9.2, platelet 135, sodium 146, BUN 31, creatinine 2.19.? ABG showed pH 7.31, pCO2 32, HC03 16, base excess -8.4. Imaging: CT/CT head for stroke 1.? No evidence of acute intracranial hemorrhage or edematous territorial infarction. 2.? Chronic encephalomalacia within the left occipitoparietal lobes. Mild underlying microangiopathy and generalized cerebral volume loss. 3.? Chronic waxing and waning nodular structure in the medial aspect of the left orbit consistent with an orbital varix. CT/CT angio head? neck stroke 1.? No evidence of acute intracranial hemorrhage or edematous territorial infarction. Chronic encephalomalacia within the left occipitoparietal lobes. Mild underlying microangiopathy and generalized cerebral volume loss. 2.? Chronic occlusion of the left ICA approximately 0.5 cm from its origin. 3.? High-grade (at least 80%) stenosis of the origin of the right ICA. 4.? The left-sided RANDAL and MCA vessels appear to cross-fill across the anterior communicating artery and through central leptomeningeal collateralization. 5.? Moderate atherosclerotic stenoses of the origins of the vertebral arteries bilaterally. 6.? Moderate multilevel degenerative spondyloarthropathy of the cervical spine. 7.? Emphysema. 8.? Chronic waxing and waning nodular structure in the medial aspect of the left orbit consistent with an orbital varix. ED COURSE: tPa was given at 00:20 per neurology recommendation and he was admitted to ICU Hospial course He was seen by Neurology and recommended to have ASA, plavix and blood pressure control, echo cardiologram show normal EF and no intracardiac clot. He was to have an MRI but MRI machine is down and therefore had a repeat CT 2 days show no acute infarct or hemorrhage, he has been followed by Speech, PT and OT and is recommended to go to acute inpatient rehab. Of note he has high grade righ ICA stenosis and should follow up with vascular surgery on outpatient basis. He has right carotid stenosis of 80%.. See by vascular surgery and will follow up on outpatient basis with Dr. Corona Time Spent with Patient Time attestation: Total time managing care of this patient today ____ minutes. Discharge coordination time: Greater than 30 minutes Quality: Safe Use of Opioids Does Pt have an Active Cancer Diagnosis on the Problem List?: No Quality: Stroke Does the patient have a stroke diagnosis?: No Physical Exam Vital Signs: Vital Signs: Last Vital Signs Temp 97.9 F 11/11/22 07:33 Pulse 88 11/11/22 07:59 Resp 16 11/11/22 07:59 BP 141/73 H 11/11/22 07:33 Pulse Ox 96 11/11/22 07:33 O2 Del Method Nasal Cannula 11/11/22 07:33 O2 Flow Rate 2 11/11/22 07:33 Oxygen Flow Rate 3 11/07/22 23:50 BMI result Body Mass Index 35.3 Discharge Plan Discharge Anticipated Discharge Date/Time: 11/11/22 13:36 Patient Disposition: Xfer Inpatient Rehab Fac Discharge Diagnosis: Acute stroke Referrals: [facility] [Other] - 1 Week Mj Bonilla MD [Primary Care Provider] - 1 Week Discharge Medications: New clopidogrel 75 mg Tablet 75 mg PO DAILY Qty: 30 0RF aspirin 81 mg Tablet,Delayed Release (Dr/Ec) 81 mg PO DAILY Qty: 30 0RF Continued Jardiance 10 mg tablet 10 mg PO DAILY Qty: 30 8RF carisoprodol 350 mg tablet 2 tab PO TID allopurinol 100 mg tablet 2 tab PO DAILY glipizide 2.5 mg tablet extended release 24hr 1 tab PO BID simvastatin 20 mg tablet 1 tab PO DAILY omeprazole 20 mg capsule,delayed release(DR/EC) 1 cap PO DAILY@0630 albuterol sulfate [Ventolin HFA] 90 mcg/actuation HFA aerosol inhaler 2 puff inhalation Q4H PRN (Reason: Shortness Of Breath) losartan 100 mg tablet 100 mg PO DAILY@0630 oxycodone [OxyContin] 20 mg tablet,oral only,ext.rel.12 hr 20 mg PO BEDTIME Qty: 4 0RF oxycodone [OxyContin] 30 mg tablet,oral only,ext.rel.12 hr 30 mg PO BID Qty: 4 0RF furosemide 20 mg tablet 20 mg PO DAILY carvedilol 3.125 mg tablet 3.125 mg PO BID Qty: 100 3RF Rx Instructions: must administer with a meal/food Changed lorazepam 1 mg tablet 1 mg PO TID Qty: 4 0RF Discharge Orders: Discharge Order (Routine); Ordered 11/11/22 Ordered By: Cleveland Hoffman Diet: Diabetic diet Activity on Discharge: As tolerated Stand Alone Forms: Patient Portal Discharge page Care Plan Goals: full recovery from stroke Health Concerns: stroke, diabetes,htn, diabetes, obesity Plan of Treatment: take aspirin, plavix, lipipitor and participate in rehab Assessment: as above
--- NOTE | 2022-11-11 10:27 | MHC.CM.PN ---
MRI machine is still not repaired. Per [facility]' request, has asked MD to consider a repeat Head CT and once that is completed, [facility] has a bed for Patient today. MADAY will follow.
--- NOTE | 2022-11-11 10:28 | PM.CNGS ---
History of Present Illness Consult details Consult date: 11/11/22 Reason for consult: other (Carotid stenosis) Narrative: Very pleasant 77-year-old gentleman presents for evaluation regarding carotid stenosis. He originally presented to the emergency room on 11/07/2022. At that time he was noted to have right arm and leg weakness along with garbled speech. He was immediately worked up and treated with tPA. He reports that all the symptoms of the stroke appear to have resolved. He has regained full function of his arm and leg. Upon workup he had undergone CTA of the carotids. It demonstrated a high-grade right carotid stenosis. No other acute findings. There was no evidence of an acute stroke as well. He now presents to us for vascular evaluation. Of note he does have a history of coronary artery disease and has undergone cardiac catheterization on 10/13/2022. In addition he does have a history of COPD as well. Review of Systems Review of Systems: Yes all other systems are reviewed and are negative Constitutional: Constitutional: Reports no additional constitutional complaints ENT: Reports Normal hearing present Cardiovascular: Cardiovascular: Denies chest pain, Denies chest pain at rest, Denies chest pain with activity and Denies pedal edema Respiratory: Respiratory: Denies cough Gastrointestinal: Gastrointestinal: Denies abdominal pain Musculoskeletal: Musculoskeletal: Denies abnormal gait, Denies muscle cramps and Denies radiating pain into limb Integumentary/Breasts: Skin/Breast: Denies skin ulcer and Denies wounds Neurologic: Reports Normal hearing present and Denies abnormal gait Psychiatric: Psychiatric: Reports no additional psychiatric complaints [facility] Past Medical History Medical History (Updated 11/11/22 @ 10:33 by Rojas Corona MD) Cardiomyopathy CHF (congestive heart failure) Chronic back pain Chronic renal failure (CRF), stage 3 (moderate) CVA (cerebral vascular accident) LBBB (left bundle branch block) Lung nodule Oxygen dependent Sleep apnea Family History Family History Father Cirrhosis Mother Myocardial infarction Enlarged heart Sister No problems noted. Sister No problems noted. Surgical History Surgical History History of back surgery History of lithotripsy History of vasectomy Social History Social History Household Members: Spouse and Family Housing: House Do you presently have visiting nurse or other home services: Yes (grandson is GENERAL CAR YARD SUPERVISOR, nurse once every six months) Alcohol intake: former Year quit: 1979 Patient Tobacco Use Status: Former Tobacco user Quit Date: 1979 Years Smoked: 20 +/- Smoked in Last 30 Days: No Use of substances other than those prescribed or required for medical reasons: No Substance Use Type: Marijuana Currently Displaying Signs/Symptoms of Drug Intoxication Withdrawal: No Advance Directives: No Advance Directives Information Provided: Yes service: Yes Current occupational status: retired Meds Allergies Allergy/AdvReac Type Severity Reaction Status Date / Time codeine [CODEINE] Allergy Intermediate RASH Verified 08/19/22 15:33 morphine [MORPHINE] Allergy Mild NAUSEA Verified 08/19/22 15:33 ibuprofen [From MOTRIN] Allergy Unknown NAUSEA Verified 08/19/22 15:33 Active Medications: Current Medications Albuterol Sulfate (Albuterol Sulfate (0.083%) 2.5 Mg/3 Ml Vial.Neb) 2.5 mg INHALE RQ4H [facility] Last Admin: 11/11/22 07:57 Dose: 2.5 mg Albuterol Sulfate (Albuterol Sulfate 90 Mcg 8 Gm Inhaler) 2 puff INHALE Q4H PRN PRN Reason: Shortness Of Breath Allopurinol (Allopurinol 100 Mg Tablet) 200 mg PO DAILY [facility] Last Admin: 11/11/22 09:26 Dose: 200 mg Aspirin (Aspirin Enteric Coated 81 Mg Tablet.Dr) 81 mg PO DAILY [facility] Last Admin: 11/11/22 09:26 Dose: 81 mg Atorvastatin Calcium (Atorvastatin Calcium 10 Mg Tablet) 10 mg PO DAILY [facility] Last Admin: 11/11/22 09:26 Dose: 10 mg Carisoprodol (Carisoprodol 350 Mg Tablet) 700 mg PO TID [facility] Last Admin: 11/11/22 09:25 Dose: 700 mg Carvedilol (Carvedilol 3.125 Mg Tablet) 3.125 mg PO BID [facility]; Protocol Last Admin: 11/11/22 09:26 Dose: 3.125 mg Clopidogrel Bisulfate (Clopidogrel Bisulfate 75 Mg Tablet) 75 mg PO DAILY [facility] Last Admin: 11/11/22 09:26 Dose: 75 mg Empagliflozin (Empagliflozin 10 Mg Tablet) 10 mg PO DAILY [facility] Last Admin: 11/11/22 09:26 Dose: 10 mg Enoxaparin Sodium (Enoxaparin Sodium 40 Mg/0.4 Ml Syringe) 40 mg SUBCUT Q24H [facility] Last Admin: 11/10/22 11:37 Dose: 40 mg Furosemide (Furosemide 20 Mg Tablet) 20 mg PO DAILY [facility]; Protocol Last Admin: 11/11/22 09:26 Dose: 20 mg Glipizide (Glipizide Xl 2.5 Mg Tab.Er.24) 2.5 mg PO BID [facility] Last Admin: 11/11/22 09:26 Dose: 2.5 mg Insulin Human Lispro (Insulin Lispro 100 Unit/Ml 3 Ml Vial) 0 unit SUBCUT QIDACHS [facility]; Protocol Last Admin: 11/11/22 08:24 Dose: Not Given Lorazepam (Lorazepam 2 Mg/Ml Vial) 0.25 mg IVPUSH Q6H PRN PRN Reason: anxiety/restlessness Last Admin: 11/08/22 23:16 Dose: 0.25 mg Lorazepam (Lorazepam 1 Mg Tablet) 1 mg PO TID [facility] Last Admin: 11/11/22 09:26 Dose: 1 mg Losartan Potassium (Losartan Potassium 50 Mg Tablet) 100 mg PO DAILY@0630 [facility]; Protocol Last Admin: 11/11/22 05:42 Dose: 100 mg Omeprazole (Omeprazole 20 Mg Capsule.Dr) 20 mg PO DAILY@0630 [facility] Last Admin: 11/11/22 05:42 Dose: 20 mg Oxycodone HCl (Oxycodone Hcl Er 10 Mg Tab.Er.12h) 30 mg PO BID@0700,1900 [facility] Last Admin: 11/11/22 09:25 Dose: 30 mg Oxycodone HCl (Oxycodone Hcl Er 10 Mg Tab.Er.12h) 20 mg PO BEDTIME [facility] Last Admin: 11/10/22 20:09 Dose: 20 mg Home Medications Medication Instructions Recorded Confirmed Last Taken Type albuterol sulfate 90 mcg/actuation 2 puff inhalation Q4H PRN 11/09/20 11/08/22 07/17/22 History aerosol inhaler (Ventolin HFA) Shortness Of Breath allopurinol 100 mg tablet 2 tab PO DAILY 11/09/20 11/08/22 07/19/22 History carisoprodol 350 mg tablet 2 tab PO TID 11/09/20 11/08/22 07/18/22 History glipizide 2.5 mg tablet, extended 1 tab PO BID 11/09/20 11/08/22 07/19/22 History release 24 hr lorazepam 1 mg tablet 1 tab PO TID 11/09/20 11/08/22 07/18/22 History omeprazole 20 mg capsule,delayed 1 cap PO DAILY@0630 11/09/20 11/08/22 07/18/22 History release simvastatin 20 mg tablet 1 tab PO DAILY 11/09/20 11/08/22 07/18/22 History losartan 100 mg tablet 100 mg PO DAILY@0630 07/20/22 11/08/22 Unknown History oxycodone 30 mg tablet,crush 30 mg PO BID 07/20/22 11/08/22 Unknown History resistant,extended release 12 hr (OxyContin) furosemide 20 mg tablet 20 mg PO DAILY 08/19/22 11/08/22 Unknown History oxycodone 20 mg tablet,crush 20 mg PO BEDTIME 08/19/22 11/08/22 Unknown History resistant,extended release 12 hr (OxyContin) Physical Exam Vital Signs: Vital Signs: Last Vital Signs Temp 97.9 F 11/11/22 07:33 Pulse 88 11/11/22 07:59 Resp 16 11/11/22 07:59 BP 141/73 H 11/11/22 07:33 Pulse Ox 96 11/11/22 07:33 O2 Del Method Nasal Cannula 11/11/22 07:33 O2 Flow Rate 2 11/11/22 07:33 Oxygen Flow Rate 3 11/07/22 23:50 BMI result Body Mass Index 35.3 Const: General: cooperative, healthy appearing and comfortable Orientation/consciousness: oriented to person, oriented to place and oriented to time HEENT: Head: Yes normal to inspection Neck: Neck: Yes normal visual inspection Carotids: no bruits Chest: Chest palpation & inspection: normal inspection of the chest Resp: Effort & Inspection: normal respiratory effort and able to speak in complete sentences Auscultation: clear to auscultation bilaterally, no crackles, no rales, no rhonchi and no wheezes Cardio: Rate: regular rate Rhythm: regular rhythm Heart sounds: S1 normal heart sound present and S2 normal heart sound present Bruits: no carotid bruits Peripheral pulses: Peripheral pulses 2+ throughout GI: Inspection: Yes normal to inspection Skin: Wounds: no wounds Hair: normal Neuro: General: oriented to person, oriented to place and oriented to time Cranial nerves: Yes CN's II-XII intact bilaterally and Yes Normal hearing present Cognition (Neuro): normal cognition Motor exam (neuro): 5/5 motor strength present throughout Extrem: Other: venous exam: No significant superficial varicosities or spider telangiectasias, minimal edema General: No clubbing, No cyanosis and No edema Psych: Appearance: grossly normal Mental Status: mental status grossly normal Speech and movement: Normal speech and movement present Results Labs 11/10/22 06:45 11/10/22 06:45 Labs: Abnormal lab results 11/10/22 11/10/22 11/10/22 Range/Units 11:39 15:38 19:39 POC Glucose 139 H 139 H 161 H (60-115) mg/dL 11/11/22 Range/Units 07:14 POC Glucose 122 H (60-115) mg/dL All other labs normal. Imaging Additional studies: CT angio of head and neck from 11/08/2022 demonstrates right side 80% stenosis. Written report and images were reviewed. Assessment and Plan (1) Carotid stenosis, right: Status: Acute Plan In short the patient has high-grade right carotid stenosis. The symptomatology of right-sided weakness does not match up with this right high-grade carotid stenosis. I do not believe that was the source of it. Nonetheless it is high-grade and does need treatment. He will require right carotid endarterectomy. Risks benefits complications of the surgery was discussed in detail with the patient and the patient's daughter who was at bedside and is a [employer] employee as well. He will require cardiac and pulmonary risk stratification. Fortunately he has had a recent cardiac catheterization and does have an ejection fraction of 30-35%. We will try to schedule as soon as possible. Thank you for allowing us to assist in his care. We will follow-up with him as an outpatient. Time Spent With Patient Time: Total time managing care of this patient today ____ minutes. Procedures Date of Service Date of Service: 11/11/22
[2022-11-11 11:24] LABS: Glucose, Whole Blood 160 mg/dL (60-115)
[2022-11-11] MEDS: Enoxaparin Sodium 40 MG/0.4 ML SYRINGE SUBCUT (11:55)
[2022-11-11] MEDS: Insulin Lispro 100 UNIT/ML 3 ML VIAL SUBCUT (11:56)
--- NOTE | 2022-11-11 12:13 | MHC.CM.PN ---
CM inquired with CT department regarding need for Head CT su in order to dc this medically cleared Patient to [facility] today. CM was told, in the middle of a biopsy/would be at least 2 hours before they can get to the next Patient. MADAY has updated CM/Director and inquiring with [facility] as to the latest time they can accept Patient today. CM will follow.
--- NOTE | 2022-11-11 13:30 | MHC.CM.PN ---
Per MD, Patient is medically cleared for dc to Acute Rehab today. Patient will dc to [facility] today at 4PM, via [facility]. Patient and his care aware of and in agreement with the dc plan. Last IMM addressed yesterday.
--- NOTE | 2022-11-11 14:23 | MHC.SL.SOA ---
Referring Provider: Kathryn Gant Reason for Referral: Speech/Lang/Cognitive assessment, status post CVA Date of Plan of Treatment:11/09/22 Onset of Symptoms/Illness:11/08/22 Date Treatment Started:11/09/22 Medical Diagnosis:(1) Cerebrovascular accident: Status: Acute (2) Congestive heart failure: Status: Acute (3) Cardiomyopathy: Status: Acute (4) Hypoxia: Status: Acute (5) Acute renal failure: Per Neurologists report: Head CT revealed a chronic embolic looking left parieto-occipital infarct. He was at risk for both embolic and hemodynamic stroke due to significant carotid disease resulting in occlusion of left ICA and moderate to severe stenosis of right. Primary Speech Language Diagnosis:R47.01 Aphasia Reason for Visit:69960 Individual Treatment Subjective:Pt is in his room with his present. They inform they chose to pursue acute rehab at [facility] in [place]. Objective: Pt was re-administered the [place] Naming Test Short Form as an informal measure of his word finding abilities. During this confrontational naming task, pt correctly named 13/15 line drawings. Assessment:Pt produced some paraphasias, otherwise groped for words and stated, Wait...give me a minute... After a short delay (<10 seconds), pt was able to name most items, especially those depicting salient and common objects (i.e. house). Pt was observed to independently employ circumlocution for words he did not immediately recall. He also benefitted from orthographic cues (i.e. It starts with the letter O for target word octopus ), sentence completion cues, and phonemic cues (i.e. You put the camera on a tri... for target word tripod ). Pt reported some improvements in his word finding over the last few days. Continue to note mildly slurred speech. Pt did speak with a mildly slow rate of speech, potentially compensating for his dysarthria, which did improve his speech clarity slightly. RN was preparing pt to leave for CT scan. While he remains in the acute stage of injury, his difficulty with these tasks suggest that as language demand increase, his performance my suffer. He will benefit from simple commands, and repetition of important information at his next level of care. Plan: Notes: Ongoing assessment of speech/language/cognition Seen by: Graduate/Clinical Fellow: No Supervisory Statement: f_Reg Query Last Value , [facility] Speech Language Pathologist: Tatum Ovalles M.A., CCC-MASTER YACHT
[2022-11-11 15:45] LABS: Glucose, Whole Blood 125 mg/dL (60-115)
== END 2022-11-11 16:31 | DRG 62 ==
LOC: HO.ED 11-08 01:59 → HO.EDOVER 11-08 02:15 → HO.ICU 11-08 03:28 → HO.IMC 11-09 09:24
PROVIDERS: Internal Medicine; Internal Medicine Cardiovascular Disease; Internal Medicine Pulmonary Disease; Admitting Provider Nurse Practitioner Family; Emergency Provider Emergency Medicine; PCP Internal Medicine; Visit Provider Internal Medicine
DX: I63.9 Cerebral infarction, unspecified (principal); G81.91 Hemiplegia, unspecified affecting right dominant side; J96.11 Chronic respiratory failure with hypoxia; I42.9 Cardiomyopathy, unspecified; N17.9 Acute kidney failure, unspecified; N18.30 Chronic kidney disease, stage 3 unspecified; E11.22 Type 2 diabetes mellitus with diabetic chronic kidney disease; I50.9 Heart failure, unspecified; I65.23 Occlusion and stenosis of bilateral carotid arteries; G47.33 Obstructive sleep apnea (adult) (pediatric); R29.707 NIHSS score 7; J43.9 Emphysema, unspecified; R47.81 Slurred speech; Z91.199 Patient's noncompliance with other medical treatment and regimen due to unspecified reason; Z99.81 Dependence on supplemental oxygen; Z87.891 Personal history of nicotine dependence; Z79.84 Long term (current) use of oral hypoglycemic drugs; Z79.899 Other long term (current) drug therapy
CPT/HCPCS: 36415; 70450; 70496; 70498; 71045; 80048; 80061; 82040; 82550; 82803; 82947; 83735; 84100; 84484; 85025; 85610; 85730; 92507; 92523; 93005; 93306; 94640; 97110; 97116; 97162; 97166; 97530; 99285; C1758; J1650; J1940; J2060; J2405; J2997; Q9967

== ENCOUNTER → 2022-11-07 23:27 | Outpatient (BNV) | payer MEDICARE, MEDICAID, SELFPAY | PROVIDERS: Admitting Provider Nurse Practitioner Family; Emergency Provider Emergency Medicine; Visit Provider Internal Medicine Cardiovascular Disease | DX: R00.0 Tachycardia, unspecified (principal); R94.31 Abnormal electrocardiogram [ECG] [EKG] | CPT/HCPCS: 93010 ==

== ENCOUNTER 2022-11-08 02:07 | Outpatient (BNV) | payer MEDICARE, MEDICAID, SELFPAY | END 2022-11-09 07:00 | PROVIDERS: Admitting Provider Nurse Practitioner Family; Emergency Provider Emergency Medicine; PCP Internal Medicine; Visit Provider Internal Medicine Cardiovascular Disease | DX: I34.81 Nonrheumatic mitral (valve) annulus calcification (principal) | CPT/HCPCS: 93306 ==

== ENCOUNTER → 2022-11-08 02:07 | Outpatient (BNV) | payer MEDICARE, MEDICAID, SELFPAY | PROVIDERS: Admitting Provider Nurse Practitioner Family; Emergency Provider Emergency Medicine; PCP Internal Medicine; Visit Provider Internal Medicine | DX: E11.9 Type 2 diabetes mellitus without complications (principal); I63.9 Cerebral infarction, unspecified | CPT/HCPCS: 99232; 99239; 99499 ==

== ENCOUNTER → 2022-11-08 02:07 | Outpatient (BNV) | payer MEDICARE, MEDICAID, SELFPAY | PROVIDERS: Admitting Provider Nurse Practitioner Family; Emergency Provider Emergency Medicine; Visit Provider Internal Medicine Pulmonary Disease | DX: I63.9 Cerebral infarction, unspecified (principal); I50.9 Heart failure, unspecified; N18.30 Chronic kidney disease, stage 3 unspecified; E11.9 Type 2 diabetes mellitus without complications | CPT/HCPCS: 99232 ==

== ENCOUNTER → 2022-11-08 02:07 | Outpatient (BNV) | payer MEDICARE, MEDICAID, SELFPAY | PROVIDERS: Admitting Provider Nurse Practitioner Family; Emergency Provider Emergency Medicine; Visit Provider Internal Medicine Cardiovascular Disease | DX: I63.9 Cerebral infarction, unspecified (principal); I50.9 Heart failure, unspecified; I42.9 Cardiomyopathy, unspecified; R09.02 Hypoxemia; I21.A1 Myocardial infarction type 2; R77.8 Other specified abnormalities of plasma proteins; G93.40 Encephalopathy, unspecified; R40.1 Stupor; N18.30 Chronic kidney disease, stage 3 unspecified | CPT/HCPCS: 99291 ==

== ENCOUNTER → 2022-11-08 02:07 | Outpatient (BNV) | payer MEDICARE, MEDICAID, SELFPAY | PROVIDERS: Admitting Provider Nurse Practitioner Family; Emergency Provider Emergency Medicine; PCP Internal Medicine; Visit Provider Surgery Vascular Surgery | DX: I65.21 Occlusion and stenosis of right carotid artery (principal) | CPT/HCPCS: 99222 ==

== ENCOUNTER 2022-12-02 15:05 | Outpatient (AMB) | payer MEDICARE, MEDICAID, SELFPAY ==
--- NOTE | 2022-12-02 15:15 | A.OFFVIS_ITS ---
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: No Volunteer Firefighter: Volunteer Firefighter offered & declined Accompanied by: Family/Other Allergies adhesive Allergy (Severe, Verified 12/09/22 12:19) Rash morphine [MORPHINE] Allergy (Severe, Verified 12/09/22 12:19) NAUSEA codeine [CODEINE] Allergy (Intermediate, Verified 12/09/22 12:19) RASH ibuprofen [From MOTRIN] Allergy (Unknown, Verified 12/09/22 12:19) told to avoid due to kidneys Medication List - Last Reconciled 12/02/22 by Kathie Chen LPN albuterol sulfate 90 mcg/actuation (Ventolin HFA) 2 puffs inhalation Q4H PRN allopurinol 2 tabs PO DAILY aspirin 81 mg PO DAILY carisoprodol 2 tabs PO TID carvedilol 3.125 mg PO BID clopidogrel 75 mg PO DAILY empagliflozin (Jardiance) 10 mg PO DAILY furosemide 20 mg PO DAILY glipizide ER 1 tab PO BID lorazepam 1 mg PO TID losartan 100 mg PO DAILY@0630 omeprazole 1 cap PO DAILY@0630 oxycodone ER (OxyContin) 20 mg PO BEDTIME oxycodone ER (OxyContin) 30 mg PO BID simvastatin 1 tab PO DAILY HPI Pre Op R Carotid Endarterectomy - 12/14 HPI Details Zane is a pleasant 77-year-old male, former smoker with 30 pack year history quit over 20 years ago with underlying history of COPD, CVA (most recent 11/08/22 received tPA), and diabetes mellitus, CHF, and KAREN noncompliant with CPAP. Today he presents for preoperative pulmonary evaluation for a proposed right carotid endarterectomy scheduled with Dr. Corona on 12/14/22. At baseline, he reports dyspnea with moderate exertion which he uses 2L NC intermittently and an occasional nonproductive cough, using albuterol PRN with good effect. Oxygen was prescribed by PCP and his DME is [facility]. He currently denies any wheezing, chest tightness. He previously was on CPAP therapy for KAREN but reported issues with continued leaking so discontinued use years ago. He is not interested in restarting therapy. [facility] Medical History (Updated 12/10/22 @ 08:56 by Candida Patel NP) Cardiomyopathy Carotid stenosis, right CHF (congestive heart failure) Chronic back pain Chronic renal failure (CRF), stage 3 (moderate) CVA (cerebral vascular accident) LBBB (left bundle branch block) Lung nodule Oxygen dependent Sleep apnea Surgical History (Updated 12/09/22 @ 12:21 by Nalini Chau RN) History of back surgery History of lithotripsy History of vasectomy Family History Father Cirrhosis Mother Myocardial infarction Enlarged heart Sister No problems noted. Sister No problems noted. Social History (Updated 12/09/22 @ 13:28 by Nalini Chau RN) Household Members: Spouse and Family Housing: House Do you presently have visiting nurse or other home services: Yes (grandson is CHEMICAL RESEARCH WORKER, nurse once every six months) Alcohol intake: former Year quit: 1979 Patient Tobacco Use Status: Former Tobacco user Quit Date: 1984 Tobacco use type: Cigarette Years Smoked: ~20 service: Yes Current occupational status: retired Review of Systems Const Denies chills, Denies excessive sweating, Denies fever(s), Denies headache(s) and Denies night sweats Eyes Denies dry eyes, Denies irritation and Denies itchy eyes ENT Reports Normal hearing present, Denies headache(s), Denies nasal congestion, D enies nasal discharge, Denies post nasal drip and Denies sore throat Card Denies chest pain, Denies chest pain at rest, Denies chest pain with activity, Denies leg edema and Denies paroxysmal nocturnal dyspnea Resp Denies chest congestion, Denies excessive phlegm production, Denies pain on inspiration, Denies pain with cough, Denies stridor and Denies wheezing Musc Denies myalgias Neuro Reports Normal hearing present and Denies headache(s) Endo Denies excessive sweating Fito/Lymph Denies lymphadenopathy Aller/Immun Denies itchy eyes, Denies seasonal rhinorrhea and Denies wheezing Physical Exam Vital Signs: Last Vital Signs Pulse 82 12/02/22 15:19 BP 136/82 12/02/22 15:19 Pulse Ox 95 12/02/22 15:19 Oxygen Delivery Method Room Air 12/02/22 15:19 Const General: cooperative, healthy appearing, comfortable, no acute distress, well developed and alert Nutritional Appearance: obese Orientation/consciousness: patient oriented x3 Limitations: ambulation with walker HEENT Head: Yes normal to inspection, Yes normocephalic and Yes atraumatic Ears: hearing grossly normal bilaterally and external ears normal Eyes General: appearance normal, both eyes and all related structures Eyelids: Yes eyelids normal Sclerae: sclerae normal EOM: EOMs intact bilaterally Neck Neck: Yes normal visual inspection and Yes no lymphadenopathy Lymphatic: no lymphadenopathy noted Chest Chest palpation & inspection: normal inspection of the chest Resp Effort & Inspection: normal respiratory effort, able to speak in complete sentences, no audible wheezes, no stridor, not tachypneic, no tripod positioning and no use of accessory muscles Cardio Jugular venous distension: no JVD Rate: regular rate Rhythm: regular rhythm Skin Other: warm, dry General skin exam: no rashes or lesions noted Neuro General: patient oriented x3 Cranial nerves: Yes Normal hearing present Cognition (Neuro): normal cognition Gait exam (Neuro): Assisted gait required Extrem General: Yes normal to inspection Psych Appearance: grossly normal and well kempt Speech and movement: Normal speech and movement present and Clear speech present Affect: normal affect Attitude: cooperative Thought process: Normal thought process present Thought content: Normal thought content present Insight: Good insight present (Psych) Judgement: Good judgement present (Psych) Office Procedures 6 Minute Walk Time:: 15:55 SPO2 % at rest: 92 Pulse at rest: 84 SPO2 % during excercise: 90 Pulse during excercise: 106 SPO2 % after excercise: 93 Pulse after excercise: 108 Distance in yards walked: 100 Carmela Score: 7 Performance Observations:: Patient walked using a walker on flat ground x 100 yards. Maintained O2 saturation of 90% or higher. Patient reports moderate effort but tires easily. Patient notes he has had back surgery and has leg pain and cramping with ambulating any distance. Patient did not require supplemental O2. [id number] - 6 Minute Walk Assessment & Plan Assessment & Plan (1) Encounter for preoperative pulmonary examination: Code(s): Z01.811 - Encounter for preprocedural respiratory examination (2) COPD (chronic obstructive pulmonary disease): Code(s): J44.9 - Chronic obstructive pulmonary disease, unspecified (3) Obstructive sleep apnea: Code(s): G47.33 - Obstructive sleep apnea (adult) (pediatric) (4) Dyspnea on exertion: Code(s): R06.09 - Other forms of dyspnea Plan Patient's symptoms of dyspnea are likely multifactorial with contribution from pulmonary, cardiac and deconditioning/obesity etiologies. He is not on any maintenance inhalers and would likely benefit, will send in Trelegy for patient to trial. 6MWT was performed on room air and there is no need for additional supplemental oxygen at this time, although patient is aware he should maintain an oxygen saturation of 92-94%. He does have a history of KAREN, unknown severity, with noncompliance of CPAP therapy and no interest in restarting. Would like to further risk stratify with PFT. All questions were answered and patient is in agreement of plan. Orders: Orders PFT pulmonary function test 12/09/22 R09.02 - Hypoxemia, R06.09 - Other forms of dyspnea AMB 6 minute walk 12/02/22 R09.02 - Hypoxemia Medications: Discontinued oxycodone ER 20 mg PO BEDTIME 4 tabs 0RF Coding Level of Care Code New Pt Level 4 (28698) Diagnoses Encounter for preoperative pulmonary examination Z01.811 COPD (chronic obstructive pulmonary disease) J44.9 Obstructive sleep apnea G47.33 Dyspnea on exertion R06.09 CPT Codes Coding ([id number])
[2022-12-02 15:19] VITALS: BP 136/82; PULSE 82; O2SAT 95
[2022-12-02 16:27] VITALS: PULSE 84; O2SAT 92
== END 2022-12-02 16:00 | disposition home or self-care (01) ==
PROVIDERS: PCP Internal Medicine; Visit Provider Nurse Practitioner Family
DX: J44.9 Chronic obstructive pulmonary disease, unspecified (principal)
CPT/HCPCS: 94618; 99204

== ENCOUNTER → 2022-12-02 15:05 | Outpatient (BNVA) | payer MEDICARE, MEDICAID, SELFPAY | PROVIDERS: PCP Internal Medicine; Visit Provider Nurse Practitioner Family | DX: Z01.811 Encounter for preprocedural respiratory examination (principal); J44.9 Chronic obstructive pulmonary disease, unspecified; G47.33 Obstructive sleep apnea (adult) (pediatric); R06.09 Other forms of dyspnea; Z91.199 Patient's noncompliance with other medical treatment and regimen due to unspecified reason | CPT/HCPCS: 94618; 99202 ==

== ENCOUNTER 2022-12-04 11:05 | Outpatient (REF) | payer MEDICARE, MEDICAID, SELFPAY ==
[2022-12-04 14:35] LABS: Anion Gap 12 (12-20); Blood Urea Nitrogen 31 mg/dL (9-16); Calcium 9.2 mg/dL (8.4-10.2); Carbon Dioxide 29 mmol/L (22-29); Chloride 105 mmol/L (96-108); Estimated Glomerular Filt Rate 45; Glucose Random 137 mg/dL (60-115); Potassium 4.1 mmol/L (3.3-5.1); Sodium 142 mmol/L (135-145)
[2022-12-05 03:26] LABS: Estimated Average Glucose 123 mg/dL; Hemoglobin A1c % 5.9 %
== END 2022-12-04 11:06 | disposition home or self-care (01) ==
LOC: HO.HMGCLDS 11:05
PROVIDERS: PCP Internal Medicine; Visit Provider Internal Medicine
DX: E11.9 Type 2 diabetes mellitus without complications (principal); N18.9 Chronic kidney disease, unspecified
CPT/HCPCS: 36415; 80048; 83036

== ENCOUNTER 2022-12-09 11:56 | Outpatient (REF) | payer MEDICARE, MEDICAID, SELFPAY ==
--- NOTE | 2022-12-09 14:10 | PFT_ITS ---
Forced vital capacity 73%, FEV1 48%, FEV1/FVC ratio 47. [id number] 22% and MVV 46%. The patient was not given bronchodilator challenge as he had used albuterol just about half an hour prior to the test. LUNG VOLUMES: Total lung capacity 102%. Residual volume 141%. ERV 53%. Diffusion capacity 44%. CONCLUSION: These findings are consistent with very severe obstructive airway disorder. Clinical correlation recommended. MD YASMANY Forrester/VALDEZ / [id number]
== END 2022-12-09 11:57 | disposition home or self-care (01) ==
LOC: HO.RESP 11:56
PROVIDERS: PCP Internal Medicine; Visit Provider Nurse Practitioner Family
DX: R06.09 Other forms of dyspnea (principal); R09.02 Hypoxemia
CPT/HCPCS: 94010; 94727; 94729

== ENCOUNTER 2022-12-14 06:01 | Inpatient (IN) | payer MEDICARE, MEDICAID, SELFPAY ==
[2022-12-09 12:25] VITALS: BP 125/73; PULSE 89; RESP 16; O2SAT 93; BMI 34.6
--- NOTE | 2022-12-09 12:46 | HO.ANESPROP2 ---
Documented by User: Sujata Chairez NP 12/10/22 10:44 HPI - Anesthesia Eval Consult details Narrative: 77yo M for Right Carotid Endarterectomy Cardiac optimized. Last office visit 07/2022. Recent tests/cath reviewed by Dr Graham. Pulmo optimized: PFT performed , which revealed moderate obstructive defect, FEV1 48%, moderately decreased DLCO of 44 and increased residual volume suggestive of air trapping, full report below. Secondary to patient's moderate COPD, decreased DLCO, and noncompliance with CPAP therapy, he is at intermediate risk for perioperative complications. Consider bronchodilators during the perioperative period as well as extubating to BiPAP. No recent illness. No chest pain. SOB/FRAZIER at baseline. KAREN untreated for years. O2 prn @ 2L RLE extremity weakness residual from CVA 10/2022 ([facility] [place] admit) Does not regularly check blood sugar PMFSH Active Problems Active Problems: All Active Problems (Updated 11/19/22 @ 00:02 by Angella Hutson) Altered mental status (Acute) Acute renal failure (Acute) Elevated troponin level not due myocardial infarction (Acute) Encephalopathy (Acute) Elevated troponin (Acute) Type 2 TX (myocardial infarction) (Acute) Hypoxia (Acute) Cerebrovascular accident (Acute) Congestive heart failure (Acute) Diabetes mellitus (Acute) Chronic renal failure (CRF), stage 3 (moderate) (Acute) Cardiomyopathy (Acute) Past Medical History Medical History (Updated 12/10/22 @ 08:56 by Candida Patel NP) Cardiomyopathy Carotid stenosis, right CHF (congestive heart failure) Chronic back pain Chronic renal failure (CRF), stage 3 (moderate) CVA (cerebral vascular accident) LBBB (left bundle branch block) Lung nodule Oxygen dependent Sleep apnea Family History Family History Father Cirrhosis Mother Myocardial infarction Enlarged heart Sister No problems noted. Sister No problems noted. Surgical History Surgical History (Updated 12/09/22 @ 12:21 by Nalini Chau, CHAIM) History of back surgery History of lithotripsy History of vasectomy Social History Social History (Updated 12/09/22 @ 13:28 by Nalini Chau, CHAIM) Household Members: Spouse and Family Housing: House Do you presently have visiting nurse or other home services: Yes (grandson is [employer]ATING [employer]INE[employer], nurse once every six months) Alcohol intake: former Year quit: 1979 Patient Tobacco Use Status: Former Tobacco user Quit Date: 1984 Tobacco use type: Cigarette Years Smoked: ~20 Use of substances other than those prescribed or required for medical reasons: No Have you been hit, kicked, punched, or otherwise hurt by someone within the past year? If so, by whom?: No Are you DNR?: No Advance Directives: No Advance Directives Information Provided: Yes Advance Directives on File: No Recently lost weight without trying: No Nutrition Risks: Surgical patient >75years Poor oral hygiene: Yes (many missing teeth) service: Yes Current occupational status: retired Meds Allergies Allergy/AdvReac Type Severity Reaction Status Date / Time adhesive Allergy Severe Rash Verified 12/14/22 06:34 morphine [MORPHINE] Allergy Severe NAUSEA Verified 12/14/22 06:34 codeine [CODEINE] Allergy Intermediate RASH Verified 12/14/22 06:34 ibuprofen [From MOTRIN] Allergy Unknown told to Verified 12/14/22 06:34 avoid due to kidneys Home Medications Medication Instructions Recorded Confirmed Last Taken Type albuterol sulfate 90 mcg/actuation 2 puff inhalation Q4H PRN 11/09/20 12/14/22 12/13/22 History aerosol inhaler (Ventolin HFA) Shortness Of Breath allopurinol 100 mg tablet 2 tab PO DAILY 11/09/20 12/14/22 12/13/22 History carisoprodol 350 mg tablet 2 tab PO TID 11/09/20 12/14/22 12/13/22 History glipizide 2.5 mg tablet, extended 1 tab PO BID 11/09/20 12/14/22 12/13/22 History release 24 hr omeprazole 20 mg capsule,delayed 1 cap PO DAILY@0630 11/09/20 12/14/22 12/14/22 04:00 History release simvastatin 20 mg tablet 1 tab PO DAILY 11/09/20 12/14/22 12/13/22 History losartan 100 mg tablet 100 mg PO DAILY@0630 07/20/22 12/14/22 12/13/22 History furosemide 20 mg tablet 20 mg PO DAILY 08/19/22 12/14/22 12/13/22 History carvedilol 6.25 mg tablet 6.25 mg PO BID 12/09/22 12/14/22 12/14/22 04:00 History omega 1-sjf-qjk-fish oil 1,000 mg 1 cap PO BID 12/09/22 12/14/22 12/13/22 History (120 mg-180 mg) capsule (Fish Oil) oxycodone 20 mg tablet,crush 20 mg PO DAILY@1500 12/09/22 12/14/22 12/14/22 04:00 History resistant,extended release 12 hr (OxyContin) tamsulosin 0.4 mg capsule 0.4 mg PO BEDTIME 12/09/22 12/14/22 12/13/22 History atorvastatin 80 mg tablet 80 mg PO BEDTIME 12/14/22 12/14/22 Unknown History clopidogrel 75 mg tablet 75 mg PO DAILY 12/14/22 Unknown History Exam Exam Date and Time: December 09, 2022 1246 Height,Weight and Vital Signs: Height 5 ft 11 in Weight 112.7 kg Last Vital Signs Pulse 89 12/09/22 12:25 Resp 16 12/09/22 12:25 BP 125/73 12/09/22 12:25 Pulse Ox 93 12/09/22 12:25 O2 Del Method Room Air 12/09/22 12:25 Narrative Narrative: ECHO 10/2022 Conclusions: - Normal left ventricular size and systolic function. The? visually estimated ejection fraction is between 55-60%.? - Normal right ventricular cavity size and systolic function.? ? - The left atrium is normal in size.? There is no evidence of? ? interatrial shunt by agitated saline.? - There is moderate mitral annular calcification.?? EKG 10/2022 Vent. Rate : 119 BPM ? ? Atrial Rate : 119 BPM ?? P-R Int : 166 ms? QRS Dur : 076 ms ? ? QT Int : 320 ms ? ? ? P-R-T Axes : 049 002 073 degrees ?? QTc Int : 450 ms ? Sinus tachycardia Nonspecific T wave abnormality Abnormal ECG When compared with ECG of 19-JUL-2022 17:27, Incomplete left bundle branch block is no longer Present Cardiac cath 09/2022 Moderate RCA and LCx disease. Nonischemic cardiomyopathy. Airway Mallampati Class: II TM Dist: >3cm Neck ROM: Full Loose/Missing/Broken Teeth: Yes (Poor dentition. Most missing, remaining teeth broken. Nothing loose) Heart: RRR Lungs: Diminished throughout Assessment and Plan Assessment Anesthesia Assessment: Anesthesia Plan Discussed and PAT Visit Documented by User: Paco Triplett MD 12/14/22 08:25 [facility] Past Medical History Medical History (Updated 12/10/22 @ 08:56 by Candida Patel NP) Cardiomyopathy Carotid stenosis, right CHF (congestive heart failure) Chronic back pain Chronic renal failure (CRF), stage 3 (moderate) CVA (cerebral vascular accident) LBBB (left bundle branch block) Lung nodule Oxygen dependent Sleep apnea Family History Family History Father Cirrhosis Mother Myocardial infarction Enlarged heart Sister No problems noted. Sister No problems noted. Family history of problems with anesthesia: No Surgical History Surgical History (Updated 12/09/22 @ 12:21 by Nalini Chau RN) History of back surgery History of lithotripsy History of vasectomy History of Problems with Anesthesia: Yes Social History Social History (Updated 12/09/22 @ 13:28 by Nalini Chau RN) Household Members: Spouse and Family Housing: House Do you presently have visiting nurse or other home services: Yes (grandson is COATING ENGINE[employer], nurse once every six months) Alcohol intake: former Year quit: 1979 Patient Tobacco Use Status: Former Tobacco user Quit Date: 1984 Tobacco use type: Cigarette Years Smoked: ~20 Use of substances other than those prescribed or required for medical reasons: No Have you been hit, kicked, punched, or otherwise hurt by someone within the past year? If so, by whom?: No Are you DNR?: No Advance Directives: No Advance Directives Information Provided: Yes Advance Directives on File: No Recently lost weight without trying: No Nutrition Risks: Surgical patient >77years Poor oral hygiene: Yes (many missing teeth) service: Yes Current occupational status: retired Meds Allergies Allergy/AdvReac Type Severity Reaction Status Date / Time adhesive Allergy Severe Rash Verified 12/14/22 06:34 morphine [MORPHINE] Allergy Severe NAUSEA Verified 12/14/22 06:34 codeine [CODEINE] Allergy Intermediate RASH Verified 12/14/22 06:34 ibuprofen [From MOTRIN] Allergy Unknown told to Verified 12/14/22 06:34 avoid due to kidneys Home Medications Medication Instructions Recorded Confirmed Last Taken Type albuterol sulfate 90 mcg/actuation 2 puff inhalation Q4H PRN 11/09/20 12/14/22 12/13/22 History aerosol inhaler (Ventolin HFA) Shortness Of Breath allopurinol 100 mg tablet 2 tab PO DAILY 11/09/20 12/14/22 12/13/22 History carisoprodol 350 mg tablet 2 tab PO TID 11/09/20 12/14/22 12/13/22 History glipizide 2.5 mg tablet, extended 1 tab PO BID 11/09/20 12/14/22 12/13/22 History release 24 hr omeprazole 20 mg capsule,delayed 1 cap PO DAILY@0630 11/09/20 12/14/22 12/14/22 04:00 History release simvastatin 20 mg tablet 1 tab PO DAILY 11/09/20 12/14/22 12/13/22 History losartan 100 mg tablet 100 mg PO DAILY@0630 07/20/22 12/14/22 12/13/22 History furosemide 20 mg tablet 20 mg PO DAILY 08/19/22 12/14/22 12/13/22 History carvedilol 6.25 mg tablet 6.25 mg PO BID 12/09/22 12/14/22 12/14/22 04:00 History omega 3-svm-pxb-fish oil 1,000 mg 1 cap PO BID 12/09/22 12/14/22 12/13/22 History (120 mg-180 mg) capsule (Fish Oil) oxycodone 20 mg tablet,crush 20 mg PO DAILY@1500 12/09/22 12/14/22 12/14/22 04:00 History resistant,extended release 12 hr (OxyContin) tamsulosin 0.4 mg capsule 0.4 mg PO BEDTIME 12/09/22 12/14/22 12/13/22 History atorvastatin 80 mg tablet 80 mg PO BEDTIME 12/14/22 12/14/22 Unknown History clopidogrel 75 mg tablet 75 mg PO DAILY 12/14/22 Unknown History Assessment and Plan Final Anesthetic Review Family History of Problems with Anesthesia: No History of Problems with Anesthesia: Yes ASA Class: IV Final Preanesthetic Review: No Changes in Pt Med Stat, Meds/Allgs Chart Reviewed, Consent Obtained/Reviewed and Anes Risks/Benef Reviewed Patient Risk: High Procedure Risk: High Anesthetic Plan Anesthetic Plan: GA and Agree w/ Assess. and Plan Disposition: Standard PACU
[2022-12-14] VITALS (25 sets, daily range): BP systolic 78–156; BP diastolic 37–70; PULSE 72–93; RESP 9–20; TEMP 36.1–36.9; O2SAT 94–97; BMI 36.6
--- OUTSIDE RECORDS SUMMARY | 2022-12-14 06:12 | XMS_ITS | Summary of Care ---
Author Name Unknown Organization [facility] Address [address] [place] [address]- Encounter 11/11/22 - 11/27/[address] [address]- Discharge Disposition: Discharged to Home or Self Care Attending Physician: Kellen MELENDREZ, Charity Snowden Admitting Physician: Kellen MELENDREZ, Charity Snowden Allergies, Adverse Reactions, Alerts Substance Reaction Severity Status codeine Active ibuprofen Active morphine Active Medications albuterol CFC free 90 mcg/inh inhalation aerosol 180 mcg, 2 puff, Aerosol, INH, q4hr RT PRN, 1 EA, 0 Refill(s), Wheezing, Route to Pharmacy Electronically, [facility] #[id number], 183, cm, 11/24/22 5:10:00 EDT, Height/Length Dosing, 111.4, kg,11/24/22 5:10:00 EDT, Weight Dosing Start Date: 11/25/22 Status: Ordered allopurinol 100 mg oral tablet 200 mg = 2 tab, Oral, Daily, 0 Refill(s) Start Date: 11/11/22 Status: Ordered aspirin 81 mg oral delayed release tablet 81 mg, = 1 tab, Oral, Daily, 0 Refill(s) Start Date: 11/11/22 Status: Ordered atorvastatin 80 mg oral tablet 80 mg = 1 tab, Tab, Oral, QHS, 30 tab, 0 Refill(s), Route to Pharmacy Electronically, [facility] #[id number], 183, 11/24/22 5:10:00 EDT, Height/Length Dosing, cm, 111.4, 11/24/22 5:10:00 EDT, Weight Dosing, kg Start Date: 11/25/22 Status: Ordered carisoprodol 350 mg oral tablet 700 mg = 2 tab, Oral, TID, 0 Refill(s) Start Date: 11/11/22 Status: Ordered cefpodoxime 100 mg oral tablet 100 mg, 1 tab, Tab, Oral, q12hr, 6 tab, 0 Refill(s), Indication: UTI - Unspecified, Route to Pharmacy Electronically, [facility] #[id number], 183, 11/24/22 5:10:00 EDT, Height/Length Dosing, cm,111.4, 11/24/22 5:10:00 EDT, kg, Weight Dosing Start Date: 11/26/22 Status: Ordered Coreg 3.125 mg oral tablet 3.125 mg = 1 tab, Tab, Oral, BIDmeals, 0 Refill(s) Start Date: 11/11/22 Status: Ordered Flomax 0.4 mg oral capsule 0.4 mg = 1 cap, Cap, Oral, QHS, 30 cap, 0 Refill(s), Route to Pharmacy Electronically, [facility] #[id number], 183, 11/24/22 5:10:00 EDT, Height/Length Dosing, cm, 111.4, 11/24/22 5:10:00 EDT, Weight Dosing, kg Start Date: 11/25/22 Status: Ordered glipiZIDE XL 2.5 mg = 1 tab, Indication Hyperglycemia, Tab-ER, Oral, Start date 11/12/22 20:00:00 EDT Start Date: 11/12/22 Stop Date: 11/12/22 Status: Completed glipiZIDE XL 2.5 mg oral tablet, extended release 2.5 mg, = 1 tab, Tab-ER, Oral, BID, 0 Refill(s) Start Date: 11/11/22 Status: Ordered Jardiance 10 mg oral tablet 10 mg, = 1 tab, Tab, Oral, qAM, 0 Refill(s) Start Date: 11/11/22 Status: Ordered LORazepam 1 mg oral tablet 1 mg = 1 tab, Tab, Oral, TID, 0 Refill(s) Start Date: 11/11/22 Status: Ordered Mucinex 600 mg oral tablet, extended release 600 mg = 1 tab, Tab-ER, Oral, BID, 20 tab, 0 Refill(s), Route to Pharmacy Electronically, [facility] #[id number], 183, 11/24/22 5:10:00 EDT, Height/Length Dosing, cm, 111.4, 11/24/22 5:10:00 EDT, Weight Dosing, kg Start Date: 11/25/22 Status: Ordered omeprazole 20 mg oral delayed release capsule 20 mg = 1 cap, Cap-DR, Oral, Before breakfast, 0 Refill(s) Start Date: 11/11/22 Status: Ordered OxyCONTIN 20 mg oral tablet, extended release 20 mg = 1 tab, Tab-ER, Oral, QHS, 0 Refill(s) Start Date: 11/11/22 Status: Ordered OxyCONTIN 30 mg oral tablet, extended release 30 mg = 1 tab, Tab-ER, Oral, q12hr, 0 Refill(s) Start Date: 11/11/22 Status: Ordered Plavix 75 mg oral tablet 75 mg, = 1 tab, Tab, Oral, Daily, 30 tab, 0 Refill(s), Route to Pharmacy Electronically, [facility] #[id number], 183, 11/24/22 5:10:00 EDT, Height/Length Dosing, cm, 111.4, 11/24/22 5:10:00 EDT,Weight Dosing, kg Start Date: 11/25/22 Status: Ordered torsemide 20 mg oral tablet 10 mg = 0.5 tab, Tab, Oral, Daily, 15 tab, 0 Refill(s), Route to Pharmacy Electronically, [facility] #[id number], 183, 11/24/22 5:10:00 EDT, Height/Length Dosing, cm, 111.4, 11/24/22 5:10:00 EDT, Weight Dosing, kg Start Date: 11/25/22 Status: Ordered Problem List Condition Effective Dates Status Health Status Inform ant At risk of venous thromboembolus(Confirmed) 1 11/11/22 Active Cardiomyopathy(Confirmed) Active CHF - Congestive heart failure(Confirmed) Active COPD - Chronic obstructive pulmonary disease(Confirmed) Active CVA - Cerebrovascular accident(Confirmed) Active DM - Diabetes mellitus(Confirmed) Active Gout(Confirmed) Active Sleep apnea(Confirmed) Active Suspected disease caused by 2019 novel coronavirus(Confirmed) 2 11/11/22 - 11/11/22 Resolved 1Problem added by Discern Expert Rule: EBN_VTERISKPROB_3 2Problem added automatically by Discern Expert based on clinical documentation Results Laboratory List Name Date Glucose, POC 11/27/22 Glucose, POC 11/26/22 Glucose, POC 11/25/22 Most recent to oldest [Reference Range]: 1 2 3 Creatinine Level 1.60 mg/dL (11/26/22 1:32 PM) 1.59 mg/dL (11/25/22 11:16 AM) 2.39 mg/dL (11/23/22 1:01 PM) Estimated Creatinine Clearance 43.85 mL/min 1 (11/27/22 5:39 AM) 43.85 mL/min 2 (11/26/22 1:32 PM) 44.12 mL/min 3 (11/25/22 11:16 AM) Glucose POC RALS [74-106 mg/dL] 90 mg/dL (11/27/22 6:00 AM) 96 mg/dL (11/26/22 6:05 AM) 108 mg/dL *HI* (11/25/22 5:56 AM) Blood Glucose, Capillary [74-106 mg/dL] 100 mg/dL (11/12/22 8:09 PM) 1Result Comment: Calculated using method: Cockcroft-Gault (default) Calculated using Formula : (140-ageInYears)*IBW/(72*scrInMGperDL) Age: 77 (35314697500.0) Serum Creatinine: 1.60 mg/dL (42055115068.0) Height: 183 cm (90496670328.0) Weight: 110.4 kg (IBW = 77.709 kg) 2Result Comment: Calculated using method: Cockcroft-Gault (default) Calculated using Formula : (140-ageInYears)*IBW/(72*scrInMGperDL) Age: 77 (48186952840.0) Serum Creatinine: 1.60 mg/dL (22163939153.0) Height: 183 cm (26323766404.0) Weight: 111.4 kg (IBW = 77.709 kg) 3Result Comment: Calculated using method: Cockcroft-Gault (default) Calculated using Formula : (140-ageInYears)*IBW/(72*scrInMGperDL) Age: 77 (87907829121.0) Serum Creatinine: 1.59 mg/dL (03455008734.0) Height: 183 cm (57390169268.0) Weight: 111.4 kg (IBW = 77.709 kg) Vital Signs Most recent to oldest [Reference Range]: 1 2 3 Temperature Oral F [96.4-99.1 DegF] 98 DegF (11/27/22 4:59 AM) 97.8 DegF (11/26/22 2:59 PM) 98 DegF (11/26/22 5:43 AM) Peripheral Pulse Rate [60-100 bpm] 97 bpm (11/27/22 5:00 AM) 69 bpm (11/26/22 3:00 PM) 92 bpm (11/26/22 2:46 PM) Respiratory Rate [14-20 br/min] 20 br/min (11/27/22 4:59 AM) 14 br/min (11/26/22 2:46 PM) 16 br/min (11/26/22 5:43 AM) Blood Pressure [90-140/60-90 mmHg] 115/73mmHg (11/27/22 4:59 AM) 114/69mmHg (11/26/22 2:59 PM) 112/78mmHg (11/26/22 2:00 PM) Mean Arterial Pressure, Cuff 87 mmHg (11/27/22 4:59 AM) 84 mmHg (11/26/22 2:59 PM) 89 mmHg (11/25/22 3:17 PM) Extremity used to obtain blood pressure Left Arm (11/12/22 7:56 PM) Left Arm (11/11/22 4:59 PM) Diastolic Blood Pressure with Activity [60-90 mmHg] 57 mmHg *LOW* (11/25/22 2:35 PM) 73 mmHg (11/25/22 7:00 AM) 67 mmHg (11/24/22 2:09 PM) Peripheral Pulse Rate with Activity [60-100 bpm] 102 bpm *HI* (11/25/22 7:00 AM) 91 bpm (11/24/22 2:09 PM) 93 bpm (11/23/22 11:16 AM) Systolic Blood Pressure with Activity [90-140 mmHg] 93 mmHg (11/25/22 2:35 PM) 113 mmHg (11/25/22 7:00 AM) 100 mmHg (11/24/22 2:09 PM) SpO2 with Activity [94-100 %] 87 % *<LLOW* (11/25/22 7:00 AM) 89 % *LOW* (11/19/22 3:06 PM) 90 % *LOW* (11/18/22 11:25 AM) Vital Signs Additional Information complaints of feeling tired (11/23/22 11:16 AM) Pt. brought down to therapy on room air. Pt. placed on 1L O2 and O2 increased to 92%. (11/18/22 9:30 AM) pt. 90% on room air when PT when to take him down to PT, titrated O2 to 1L/min (11/16/22 10:25 AM) Vital Signs w/ Activity Additional Info supine ther ex (11/25/22 2:35 PM) 87% on 1L of O2. O2 increased to 2 L and O2 increased to 90% via nasal cannula. (11/25/22 7:00 AM) pt completed seated ther ex, seated rest break x5 mins BP decreased to 94/61 (11/24/22 2:09 PM) Peripheral Pulse Rate Post [60-100 bpm] 107 bpm *HI* (11/26/22 10:00 AM) 107 bpm *HI* (11/25/22 7:00 AM) Systolic Blood Pressure Post [90-140 mmHg] 136 mmHg (11/26/22 10:00 AM) 127 mmHg (11/25/22 7:00 AM) Diastolic Blood Pressure Post [60-90 mmHg] 78 mmHg (11/26/22 10:00 AM) 73 mmHg (11/25/22 7:00 AM) SpO2 Post [94-100 %] 92 % *LOW* (11/26/22 10:00 AM) 94 % (11/25/22 7:00 AM) 95 % (11/19/22 3:06 PM) Oxygen Therapy Post Nasal cannula (11/26/22 10:00 AM) Nasal cannula (11/25/22 7:00 AM) Nasal cannula (11/18/22 9:30 AM) Oxygen Flow Rate Post 2 L/min (11/26/22 10:00 AM) 2 L/min (11/25/22 7:00 AM) 1 L/min (11/19/22 3:06 PM) Vital Signs Additional Information Post After walking ~180 ft. (11/26/22 10:00 AM) Temperature Oral 36.0 DegC 1 (11/27/22 4:59 AM) 36.6 DegC 2 (11/26/22 2:59 PM) 36.0 DegC 3 (11/25/22 3:17 PM) 1Result Comment: Charted by SYSTEM secondary to charting of Temperature Oral F on a Vitals Monitor. Rule: VITALSLINK_CALCULATIONS_2 2Result Comment: Charted by SYSTEM secondary to charting of Temperature Oral F on a Vitals Monitor. Rule: VITALSLINK_CALCULATIONS_2 3Result Comment: Charted by SYSTEM secondary to charting of Temperature Oral F on a Vitals Monitor. Rule: VITALSLINK_CALCULATIONS_2
[2022-12-14 06:36] LABS: Glucose, Whole Blood 130 mg/dL (60-115)
[2022-12-14 06:43] LABS: INTERNATIONAL NORM RATIO 0.9 (0.9-1.1); Prothrombin Time 11.2 SEC (11.1-13.3)
[2022-12-14 06:45] LABS: Partial Thromboplastin Time 27.9 SEC (26.0-36.4)
[2022-12-14] MEDS: Albuterol Sulfate (0.083%) 2.5 MG/3 ML VIAL.NEB INHALE (06:46)
[2022-12-14 06:52] LABS: Anion Gap 15 (12-20); Blood Urea Nitrogen 46 mg/dL (9-16); Calcium 9.3 mg/dL (8.4-10.2); Carbon Dioxide 23 mmol/L (22-29); Chloride 108 mmol/L (96-108); Creatinine Clr Calc Pharmacy 41.3; Estimated Glomerular Filt Rate 33; Glucose Random 120 mg/dL (60-115); Potassium 4.1 mmol/L (3.3-5.1); Sodium 142 mmol/L (135-145)
[2022-12-14] MEDS: Lactated Ringers 1,000 ML 50 ML IVCONT (07:02)
[2022-12-14 07:13] LABS: Hematocrit 45.3 % (42.0-52.0); Hemoglobin 14.5 g/dl (14.0-18.0); Mean Corpuscular Hemoglobin 31.2 pg (27.0-33.0); Mean Corpuscular Volume 97.4 fL (80.0-98.0); Mean Platelet Volume 11.1 fL (9.4-12.4); Platelet Count 173 X10*3/uL (160-400); Red Blood Count 4.65 X10*6/uL (4.60-5.80); Red Cell Distribution Width 14.1 % (11.0-16.0); White Blood Count 7.5 X10*3/uL (4.8-10.8)
--- NOTE | 2022-12-14 07:42 | PC.NURSE ---
Dr. Bentley and Dr. Corona made aware of patients increased BUN and Creat from this AM draw. Both doctors at bedside. Patient and educated. May proceed with procedure.
--- NOTE | 2022-12-14 11:01 | W.PM.OPN ---
Operative Note Operative Note Date of Service: 12/14/22 Narrative: Operative note by [facility] Preoperative diagnosis:1. Right Carotid stenosis Postoperative diagnosis: Same Procedure: Right Carotid endarterectomy with patch angioplasty Surgeon:Rojas Corona M.D. Air Bag Buffer: Dr. Fernando Anesthesia: General Specimens: 1 Drains: 1 Estimated blood loss: 100 mL Indications: Complex 77-year-old gentleman with prior history of high-grade right carotid stenosis. He actually had presented to the hospital with evidence of stroke which did not appear related to the carotid per. Upon workup he was noted to have left-sided occlusion and high-grade right carotid stenosis. He now presents for right carotid endarterectomy. He did recognize that he was at a higher risk for stroke. The patient has signed the informed consent after reviewing risks, complications, benefits, and alternatives previously discussed with the patient. The patient was given the opportunity to ask any additional questions or voice any concerns. All questions were answered to the patient's satisfaction. Procedure in detail: Patient was taken to the operating room and placed in a supine position and prepped and draped in sterile manner with ChloraPrep. Longitudinal incision was made along the anterior border of the right sternocleidomastoid carried down through the subcutaneous fat and fascia. Hemostasis was obtained with electrocautery. The platysma muscle was then divided. The carotid sheath was identified in open. The vagus nerve, Ancef cervicalis, and hypoglossal nerves were identified and avoided. The common internal and external carotids were then freed from the surrounding tissue. At this point, 8000 units of heparin was administered and allowed to circulate for 5 minutes time to take effect. The internal, common, external carotids were clamped in that order. Once this was accomplished, we proceeded with the procedure. The carotid bulb was opened with an 11 blade and extended with Kolb scissors through the very tight lesion into normal internal carotid artery. This was then extended down into the common carotid artery. We then placed a Turner shunt. Then the plaque was sharply excised proximally and an eversion endarterectomy was performed successfully at the external. The plaque tapered nicely on to the internal and no tacking sutures were necessary. Heparinized saline was injected and no evidence of flapping or other debris was noted. The remaining carotid was examined, which showed no debris or flaps present. At this point a XenoSure patch was brought on to the field. This was anastomosed to the artery using a 6 0 Prolene in a running fashion. Once approximately 4/5 of the patch was sewn in the shunt was then removed. Prior to the last stitch the internal carotid was back bled through this. Heparinized saline was instilled into the carotid. The last stitch was tied. Hemostasis was excellent. The internal carotid was gently occluded while while of the external and internal were open in that order. Finally the internal was then opened and flow was restored to the entire system. Hemostasis was achieved with interrupted 7-0 Prolene sutures. The wound was irrigated thoroughly. We then placed a 7 flat Tad-Bedolla drain. Deep layer was reapproximated using a 2-0 poly Sorb and finally the superficial layer with a 3-0 Polysorb. The skin was closed in a subcuticular manner. The patient awoke and neurologic status was checked and appeared to be intact. Sponge, needle and instrument counts were correct. The patient tolerated the procedure well. Returned to recovery with stable vitals. This note is constructed using voice recognition software. While every effort has been made to ensure accuracy, weatherstrip machine operator errors may have been included. Thank you for allowing me to participate in the care of your patient. Yours sincerely, Rojas Corona MD, FACS, R.P.V.I.
[2022-12-14] MEDS: Phenylephrine HCL 20 MG in 0.9 % Sodium Chloride 250 ML 34.08 MG IVCONT (11:33)
--- NOTE | 2022-12-14 12:16 | PHA.MEDREC ---
Pharmacy Consult ? Medication Reconciliation Pharmacy has completed the medication reconciliation. Spoke to daughter and to sister. Per sister, patient was supposed to start on plavix and never did Mark
--- NOTE | 2022-12-14 12:59 | P.CONCC_ITS ---
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 and a high- grade greater than 80% stenosis of the right carotid artery which underwent endarterectomy today with modest blood loss of 100-150 cc he has got background COPD and oxygen dependent at home and has a congestive cardiomyopathy with a per prior echo and cardiac catheterization demonstrating 35% ejection fraction and moderate 2 vessel coronary disease noncritical he is nondiabetic but is a hypertensive on losartan as well as carvedilol and has at stage III chronic renal failure and creatinine has just risen from 1 point 5-1.9 and it was noted that he was relatively hypotensive from the time of anesthesia induction and even postoperatively post extubation and eventually required phenylephrine drip to maintain his pressures which look excellent and currently he is awake and alert not tachypneic in no respiratory or chest distress with blood pressures running 120-130 systolic by arterial line Review of Systems Review of Systems: Yes all other systems are reviewed and are negative [facility] Past Medical History Medical History (Updated 12/14/22 @ 13:06 by Chelsi Woody MD) Cardiomyopathy Carotid stenosis, right CHF (congestive heart failure) Chronic back pain Chronic renal failure (CRF), stage 3 (moderate) CVA (cerebral vascular accident) LBBB (left bundle branch block) Lung nodule Oxygen dependent Sleep apnea TIA (transient ischemic attack) Family History Family History Father Cirrhosis Mother Myocardial infarction Enlarged heart Sister No problems noted. Sister No problems noted. 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 / [employer] Allergies Allergy/AdvReac Type Severity Reaction Status Date / Time adhesive Allergy Severe Rash Verified 12/14/22 06:34 morphine [MORPHINE] Allergy Severe NAUSEA Verified 12/14/22 06:34 codeine [CODEINE] Allergy Intermediate RASH Verified 12/14/22 06:34 ibuprofen [From MOTRIN] Allergy Unknown told to Verified 12/14/22 06:34 avoid due to kidneys Active Medications: Current Medications Acetaminophen (Acetaminophen 325 Mg Tablet) 650 mg PO Q6H PRN PRN Reason: Pain, Mild (Pain Scale 1-3) Albuterol Sulfate (Albuterol Sulfate 90 Mcg 8 Gm Inhaler) 2 puff INHALE Q4H PRN PRN Reason: Shortness Of Breath Allopurinol (Allopurinol 100 Mg Tablet) 200 mg PO DAILY [facility] Aspirin (Aspirin Enteric Coated 81 Mg Tablet.Dr) 81 mg PO DAILY [facility] Atorvastatin Calcium (Atorvastatin Calcium 80 Mg Tablet) 80 mg PO BEDTIME [facility] Carisoprodol (Carisoprodol 350 Mg Tablet) 700 mg PO TID [facility] Empagliflozin (Empagliflozin 10 Mg Tablet) 10 mg PO DAILY [facility] Fluticasone/Umeclidinium/Vilanterol (Fluticasone/Umeclidinium/Vilanterol 100/62.5/25 Blst.W.Dev) 1 puff INHALE RDAILY [facility] Cefazolin Sodium/Dextrose (Ancef) 2 gm in 50 mls @ 100 mls/hr IV POSTOP ONE Stop: 12/14/22 14:29 Phenylephrine HCl 20 mg/ (Sodium Chloride) 252 mls @ 0 mls/hr IVCONT .Q0M [facility]; Protocol Last Admin: 12/14/22 11:33 Dose: 0.4 mcg/kg/min, 34.08 mls/hr Potassium Chloride/Sodium Chloride (Kcl 20 Meq In 0.45% Sod) 20 meq in 1,000 mls @ 80 mls/hr IVCONT .[id number] [facility] Morphine Sulfate (Morphine Sulfate 2 Mg/Ml Cartridge) 2 mg IVPUSH Q4H PRN; Protocol PRN Reason: Pain, Severe (Pain Scale 7-10) Omeprazole (Omeprazole 20 Mg Capsule.Dr) 20 mg PO DAILY@0630 [facility] Oxycodone HCl (Oxycodone Hcl Er 10 Mg Tab.Er.12h) 30 mg PO BID [facility] Sodium Chloride (0.9 % Sodium Chloride Flush 3 Ml Syringe) 3 ml IVFLUSH QSHIFT [facility] Tamsulosin HCl (Tamsulosin Hcl 0.4 Mg Capsule) 0.4 mg PO BEDTIME [facility] Home Medications Medication Instructions Recorded Confirmed Last Taken Type albuterol sulfate 90 mcg/actuation 2 puff inhalation Q4H PRN 11/09/20 12/14/22 12/13/22 History aerosol inhaler (Ventolin HFA) Shortness Of Breath allopurinol 100 mg tablet 2 tab PO DAILY 11/09/20 12/14/22 12/13/22 History carisoprodol 350 mg tablet 2 tab PO TID 11/09/20 12/14/22 12/13/22 History glipizide 2.5 mg tablet, extended 1 tab PO BID 11/09/20 12/14/22 12/13/22 H istory release 24 hr omeprazole 20 mg capsule,delayed 1 cap PO DAILY@0630 11/09/20 12/14/22 12/14/22 04:00 History release simvastatin 20 mg tablet 1 tab PO DAILY 11/09/20 12/14/22 12/13/22 History losartan 100 mg tablet 100 mg PO DAILY@0630 07/20/22 12/14/22 12/13/22 History furosemide 20 mg tablet 20 mg PO DAILY 08/19/22 12/14/22 12/13/22 History carvedilol 6.25 mg tablet 6.25 mg PO BID 12/09/22 12/14/22 12/14/22 04:00 History omega 6-uay-ynn-fish oil 1,000 mg 1 cap PO BID 12/09/22 12/14/22 12/13/22 History (120 mg-180 mg) capsule (Fish Oil) oxycodone 20 mg tablet,crush 20 mg PO DAILY@1500 12/09/22 12/14/22 12/14/22 04:00 History resistant,extended release 12 hr (OxyContin) tamsulosin 0.4 mg capsule 0.4 mg PO BEDTIME 12/09/22 12/14/22 12/13/22 History atorvastatin 80 mg tablet 80 mg PO BEDTIME 12/14/22 12/14/22 Unknown History Physical Exam Vital Signs: Vital Signs: Last Vital Signs Temp 97.2 F 12/14/22 11:39 Pulse 86 12/14/22 11:39 Resp 18 12/14/22 11:39 BP 104/47 L 12/14/22 11:39 Pulse Ox 96 12/14/22 11:39 O2 Del Method Nasal Cannula wit h Capnography 12/14/22 11:39 O2 Flow Rate 3 12/14/22 11:39 BMI result Body Mass Index 34.6 current pressure 120 systolic heart rate in sinus rhythm 81 and EKG showing nonspecific IVCD along with diffuse nonspecific ST-T changes and oxygen saturation 93% no focal neurologic deficits and speech is normal volume and sirena abdomen soft no organomegaly chest without adventitious sounds but bilateral diminished breath sounds bedside echo no segmental wall motion abnormality just a borderline concentric left ventricular hypertrophy and estimated ejection fraction with very mild diffuse hypokinesis 40-45% no primary valve or pericardial disease and IVC is small and flattens with inspiratory effort Results Labs 12/14/22 06:28 12/14/22 06:28 Labs: Short CBC 12/14/22 Range/Units 06:28 WBC 7.5 (4.8-10.8) X10*3/uL Hgb 14.5 (14.0-18.0) g/dl Hct 45.3 (42.0-52.0) % Plt Count 173 D (160-400) X10*3/uL BMP 12/14/22 06:28 Sodium 142 Potassium 4.1 Chloride 108 Carbon Dioxide 23 BUN 46 H Creatinine 1.97 H Calcium 9.3 Assessment and Plan (1) Obstructive sleep apnea: Status: Acute (2) COPD (chronic obstructive pulmonary disease): Status: Acute (3) Dyspnea on exertion: Status: Acute (4) Acute renal failure: Qualifiers: Acute renal failure type: unspecified Qualified Code(s): N17.9 - Acute kidney failure, unspecified Status: Acute (5) Hypoxia: Status: Acute (6) Congestive heart failure: Status: Acute (7) Chronic renal failure (CRF), stage 3 (moderate): Status: Acute (8) Cardiomyopathy: Status: Acute Plan clearly there is relative hypovolemia and I will start him on a generous maintenance at 80 cc/hour and then hopefully be able to slowly wean his phenylephrine but I am definitely with holding his vaso dilator medicine including carvedilol and losartan and then will watch hopefully for improvement in his renal function numbers Time Spent With Patient Time: Total time managing care of this patient today 45____ minutes.
[2022-12-14] MEDS: KCl 20 mEq in 0.45% Sod 20 MEQ/1,000 ML IV.SOLN 80 MEQ IVCONT (13:50)
[2022-12-14 13:52] LABS: ABG Base Excess 0.5 mmol/L; ABG HCO3 25 mmol/L (22-26); ABG pCO2 43 mmHg (32-45); ABG pH 7.38 (7.35-7.45); ABG pO2 97 mmHg (83-108)
[2022-12-14] MEDS: Acetaminophen 325 MG TABLET 650 MG PO ×2 (13:54→20:03)
[2022-12-14] MEDS: ceFAZolin Sodium/Dextrose,Iso 2 GM/50 ML PIGGYBACK IV (13:55)
[2022-12-14] MEDS: Morphine Sulfate 2 MG/ML CARTRIDGE IVPUSH (13:57)
[2022-12-14] MEDS: carisoprodoL 350 MG TABLET 700 MG PO ×2 (14:03→20:02)
[2022-12-14] MEDS: Phenylephrine HCL 20 MG in 0.9 % Sodium Chloride 250 ML 42.6 MG IVCONT ×2 (15:32→21:08)
[2022-12-14] MEDS: 0.9 % Sodium Chloride Flush 3 ML SYRINGE IVFLUSH (15:36)
[2022-12-14] MEDS: Atorvastatin Calcium 80 MG TABLET PO (20:02)
[2022-12-14] MEDS: oxyCODONE HCl ER 10 MG TAB.ER.12H 30 MG PO (20:03)
[2022-12-14] MEDS: Tamsulosin HCL 0.4 MG CAPSULE PO (20:03)
[2022-12-15] VITALS (23 sets, daily range): BP systolic 90–165; BP diastolic 48–103; PULSE 68–102; RESP 11–18; TEMP 36.1–36.8; O2SAT 92–97; BMI 37.0
[2022-12-15] MEDS: Morphine Sulfate 2 MG/ML CARTRIDGE IVPUSH ×2 (00:17→04:20)
[2022-12-15] MEDS: KCl 20 mEq in 0.45% Sod 20 MEQ/1,000 ML IV.SOLN 80 MEQ IVCONT (00:49)
[2022-12-15 01:06] LABS: ABG Refer to POC result
[2022-12-15] MEDS: Phenylephrine HCL 20 MG in 0.9 % Sodium Chloride 250 ML 42.6 MG IVCONT (02:09)
[2022-12-15 04:44] LABS: MANUAL DIFF FLAG NO
[2022-12-15 04:49] LABS: Basophils Percent Auto 0.4 % (0-2); Eosinophils Absolute Auto 0.9 X10*3/uL (0.0-0.4); Eosinophils Percent Auto 12.3 % (0-4); Hematocrit 38.7 % (42.0-52.0); Hemoglobin 12.6 g/dl (14.0-18.0); Imm Gran Abs Auto 0.05 X10*3/uL (0.00-0.03); Imm Gran Pct Auto 0.7 % (0.0-0.4); Lymphocytes Absolute Auto 1.2 X10*3/uL (1.2-4.9); Lymphocytes Percent Auto 16.6 % (20-40); Mean Corpuscular HGB Conc 32.6 g/dl (31.0-36.0); Mean Corpuscular Hemoglobin 31.9 pg (27.0-33.0); Mean Platelet Volume 10.7 fL (9.4-12.4); Monocytes Absolute Auto 0.8 X10*3/uL (0.1-1.2); Monocytes Percent Auto 12.1 % (2-11); Neutrophils Percent Auto 57.9 % (45-73); Platelet Count 136 X10*3/uL (160-400); Red Blood Count 3.95 X10*6/uL (4.60-5.80); Red Cell Distribution Width 14.1 % (11.0-16.0)
[2022-12-15] MEDS: Omeprazole 20 MG CAPSULE.DR PO (05:39)
[2022-12-15] MEDS: Fluticasone/Umeclidinium/Vilanterol 100/62.5/25 BLST.W.DEV 1 PUFF INHALE (07:38)
[2022-12-15] MEDS: oxyCODONE HCl ER 10 MG TAB.ER.12H 30 MG PO (08:04)
[2022-12-15] MEDS: carisoprodoL 350 MG TABLET 700 MG PO (08:04)
[2022-12-15] MEDS: Aspirin Enteric Coated 81 MG TABLET.DR PO (08:04)
[2022-12-15] MEDS: allopurinoL 100 MG TABLET 200 MG PO (08:05)
[2022-12-15] MEDS: Empagliflozin 10 MG TABLET PO (08:05)
[2022-12-15] MEDS: Acetaminophen 325 MG TABLET 650 MG PO (08:05)
[2022-12-15 10:50] LABS: Anion Gap 14 (12-20); Blood Urea Nitrogen 26 mg/dL (9-16); Calcium 9.3 mg/dL (8.4-10.2); Carbon Dioxide 24 mmol/L (22-29); Chloride 108 mmol/L (96-108); Creatinine Clr Calc Pharmacy 66.3; Estimated Glomerular Filt Rate 55; Glucose Random 150 mg/dL (60-115); Potassium 4.5 mmol/L (3.3-5.1); Sodium 141 mmol/L (135-145)
--- NOTE | 2022-12-15 13:38 | P.DS_ITS ---
DS: Providers Provider Date of Service: 12/15/22 Date of admission: 12/14/22 06:01 Primary care physician: Mj Bonilla MD DS: Diagnosis Discharge Diagnosis (1) Obstructive sleep apnea: Status: Acute (2) COPD (chronic obstructive pulmonary disease): Status: Acute (3) Dyspnea on exertion: Status: Acute (4) Acute renal failure: Status: Acute (5) Hypoxia: Status: Acute (6) Congestive heart failure: Status: Acute (7) Chronic renal failure (CRF), stage 3 (moderate): Status: Acute (8) Cardiomyopathy: Status: Acute DS: Summary Hospital Course Hospital Course: Patient underwent elective right carotid endarterectomy on 12/14/2022. No significant neurologic issues postop. Overnight did have some blood pressure issues and was started on martín. Was subsequently need weaned off. In general blood pressure was held throughout the day. He appeared to be doing well postop day 1. Tolerating regular diet neurologically intact. He was subsequently discharged. Status at Discharge Functional status at discharge: independent ambulation Overall status at discharge: patient is back to baseline Time Spent with Patient Time attestation: Total time managing care of this patient today ____ minutes. Discharge coordination time: Greater than 30 minutes Quality: Safe Use of Opioids Does Pt have an Active Cancer Diagnosis on the Problem List?: No Quality: Stroke Does the patient have a stroke diagnosis?: No Physical Exam Vital Signs: Vital Signs: Last Vital Signs Temp 98.1 F 12/15/22 12:00 Pulse 93 12/15/22 13:00 Resp 11 L 12/15/22 13:00 BP 121/53 L 12/15/22 13:00 Pulse Ox 94 12/15/22 13:00 O2 Del Method Nasal Cannula 12/15/22 13:00 O2 Flow Rate 2 12/15/22 13:00 Oxygen Flow Rate 2 12/15/22 11:01 BMI result Body Mass Index 37.0 Const: General: cooperative, healthy appearing and no acute distress Orientation/consciousness: oriented to person, oriented to place and oriented to time HEENT: Head: Yes normal to inspection Neck: Carotids: no bruits Chest: Chest palpation & inspection: normal inspection of the chest Resp: Effort & Inspection: normal respiratory effort and able to speak in complete sentences Auscultation: clear to auscultation bilaterally Cardio: Rate: regular rate Heart sounds: S1 normal heart sound present and S2 normal heart sound present GI: Inspection: Yes normal to inspection Skin: Other: Neck incision healing well General skin exam: no rashes or lesions noted Wounds: no wounds Neuro: General: oriented to person, oriented to place, oriented to time and CN's II-XI intact bilaterally Extrem: General: Yes normal to inspection, Yes full ROM and Yes no clubbing, cyanosis or edema Psych: Appearance: grossly normal and well kempt Speech and movement: Normal speech and movement present Affect: normal affect DS: Data Data Completed and Pending Completed studies during hospitalization [Text1]: Pending at discharge 12/14/22 09:24 Surgical [PTH] Routine Procedures Introduction of Other Thrombolytic into Peripheral Vein, Percutaneous Approach (11/08/22) Labs on day of discharge: Laboratory Results - last 24 hr 12/14/22 12/15/22 12/15/22 13:48 04:28 10:12 WBC 7.0 RBC 3.95 L Hgb 12.6 L Hct 38.7 L MCV 98.0 MCH 31.9 MCHC 32.6 RDW 14.1 Plt Count 136 L MPV 10.7 Immature Gran % (Auto) 0.7 H Neut % (Auto) 57.9 Lymph % (Auto) 16.6 L [place] % (Auto) 12.1 H Eos % (Auto) 12.3 H Baso % (Auto) 0.4 Lymph # (Auto) 1.2 [place] # (Auto) 0.8 Eos # (Auto) 0.9 H Baso # (Auto) 0.0 Abs Immat Gran (auto) 0.05 H Absolute Neuts (auto) 4.0 Absolute Nucleated RBC 0.000 Nucleated RBC % (auto) 0.0 O2 Saturation 98.0 ABG pH at Pt Temp 7.38 ABG pCO2 at Pt Temp 43 ABG pO2 at Pt Temp 97 ABG HCO3 25 ABG Base Excess (Actual) 0.5 Sodium 141 Potassium 4.5 Chloride 108 Carbon Dioxide 24 Anion Gap 14 BUN 26 H Creatinine 1.27 Estim Creat Clear Calc 66.3 Estimated GFR 55 Random Glucose 150 H Calcium 9.3 Discharge Plan Discharge Anticipated Discharge Date/Time: 12/15/22 13:35 Patient Disposition: Home, Self-Care Discharge Diagnosis: Status post carotid endarterectomy Referrals: Mj Bonilla MD [Primary Care Provider] - 1 Week Discharge Medications: New oxycodone-acetaminophen [Endocet] 5-325 mg tablet 1 tab PO Q8H PRN (Reason: pain) Qty: 10 0RF Rx Instructions: Partial Fill upon patient request. Continued Jardiance 10 mg tablet 10 mg PO DAILY Qty: 30 8RF carisoprodol 350 mg tablet 2 tab PO TID allopurinol 100 mg tablet 2 tab PO DAILY glipizide 2.5 mg tablet extended release 24hr 1 tab PO BID simvastatin 20 mg tablet 1 tab PO DAILY omeprazole 20 mg capsule,delayed release(DR/EC) 1 cap PO DAILY@0630 albuterol sulfate [Ventolin HFA] 90 mcg/actuation HFA aerosol inhaler 2 puff inhalation Q4H PRN (Reason: Shortness Of Breath) oxycodone [OxyContin] 20 mg tablet,oral only,ext.rel.12 hr 20 mg PO DAILY@1500 carvedilol 6.25 mg tablet 6.25 mg PO BID tamsulosin 0.4 mg capsule 0.4 mg PO BEDTIME omega 3-xrf-iuz-fish oil [Fish Oil] 1,000 mg (120 mg-180 mg) Capsule 1 cap PO BID atorvastatin 80 mg tablet 80 mg PO BEDTIME losartan 100 mg tablet 100 mg PO DAILY@0630 aspirin 81 mg Tablet,Delayed Release (Dr/Ec) 81 mg PO DAILY Qty: 30 0RF lorazepam 1 mg tablet 1 mg PO TID Qty: 4 0RF oxycodone [OxyContin] 30 mg tablet,oral only,ext.rel.12 hr 30 mg PO BID Qty: 4 0RF Trelegy Ellipta 100-62.5-25 mcg blister with device 1 inh inhalation DAILY Qty: 60 3RF furosemide 20 mg tablet 20 mg PO DAILY Discharge Orders: Discharge Order (Routine); Ordered 12/15/22 Ordered By: Rojas Corona Diet: Advance to usual diet Activity on Discharge: As tolerated Stand Alone Forms: Patient Portal Discharge page Care Plan Goals: Carotid follow-up Health Concerns: Carotid stenosis Plan of Treatment: Postop surveillance follow-up of carotids Assessment: Status post carotid endarterectomy
--- NOTE | 2022-12-15 13:56 | MHC.CM.PN ---
Pt resides w/spouse, has family support and is declining the need for services. Pt will f/u outpt w/vascular surgery. Family to transport to to home. IMM in chart
--- NOTE | 2022-12-15 16:30 | HO.POSTANES ---
Post Anesthesia Evaluation Post Anesthesia Evaluation Date of Service: 12/15/22 Vital Signs: Vital Signs Temp Pulse Pulse Resp BP BP Pulse Ox 12/15/22 14:20 89 153/103 H 12/15/22 11:01 94 12/15/22 11:00 97.7 F 82 18 158/76 H 94 12/15/22 10:20 84 157/96 H 12/15/22 09:30 84 127/92 H 12/15/22 08:55 102 H 90/48 L 12/15/22 08:00 77 156/64 H 12/15/22 07:42 74 18 12/15/22 10:00 82 15 157/96 H 95 12/15/22 14:00 91 13 139/72 92 12/15/22 13:00 93 11 L 121/53 L 94 12/15/22 12:00 98.1 F 89 13 152/70 H 94 12/15/22 09:00 97 15 133/58 L 93 12/15/22 08:00 98.2 F 79 11 L 143/55 H 95 12/15/22 07:00 74 11 L 146/59 H 96 12/15/22 05:54 97.2 F 75 16 146/56 H 95 O2 Del Method O2 Flow Rate 12/15/22 14:20 12/15/22 11:01 Nasal Cannula 12/15/22 11:00 Nasal Cannula 2 12/15/22 10:20 12/15/22 09:30 12/15/22 08:55 12/15/22 08:00 12/15/22 07:42 12/15/22 10:00 Nasal Cannula 2 12/15/22 14:00 Nasal Cannula 2 12/15/22 13:00 Nasal Cannula 2 12/15/22 12:00 Nasal Cannula 2 12/15/22 09:00 Nasal Cannula 2 12/15/22 08:00 Nasal Cannula 2 12/15/22 07:00 Nasal Cannula 3 12/15/22 05:54 Nasal Cannula 3 Anesthesia: General Endotracheal-GETA Mental Status: Awake Pain Control: Satisfactory Nausea/Vomiting: None Hydration: Adequate Anesthesia-Related Issues: No Anes. Related Issues
== END 2022-12-15 14:30 | disposition home or self-care (01) | DRG 38 ==
LOC: HO.SSSA 06:10 → HO.ICU 11:30
PROVIDERS: Internal Medicine Cardiovascular Disease; Admitting Provider Surgery Vascular Surgery; PCP Internal Medicine; Visit Provider Surgery Vascular Surgery
PROC: 03CH0ZZ Extirpation of Matter from Right Common Carotid Artery, Open Approach (ICD-10-PCS; CPT 35301; principal; 2022-12-14 07:30)
DX: I65.21 Occlusion and stenosis of right carotid artery (principal); I13.0 Hypertensive heart and chronic kidney disease with heart failure and stage 1 through stage 4 chronic kidney disease, or unspecified chronic kidney disease; I42.0 Dilated cardiomyopathy; N17.9 Acute kidney failure, unspecified; I95.9 Hypotension, unspecified; J44.9 Chronic obstructive pulmonary disease, unspecified; Z99.81 Dependence on supplemental oxygen; N18.30 Chronic kidney disease, stage 3 unspecified; E86.1 Hypovolemia; G47.33 Obstructive sleep apnea (adult) (pediatric); I50.9 Heart failure, unspecified; Z09 Encounter for follow-up examination after completed treatment for conditions other than malignant neoplasm; Z86.73 Personal history of transient ischemic attack (TIA), and cerebral infarction without residual deficits; Z87.891 Personal history of nicotine dependence; Z79.51 Long term (current) use of inhaled steroids; Z79.82 Long term (current) use of aspirin; Z79.84 Long term (current) use of oral hypoglycemic drugs; Z79.899 Other long term (current) drug therapy
CPT/HCPCS: 36415; 80048; 82803; 82947; 85025; 85027; 85610; 85730; 86850; 86900; 86901; 88304; 88311; 94640; C1758; C1768; J0131; J0690; J1643; J2270; J2371; J2405; J2795; J3010

== ENCOUNTER → 2022-12-14 06:01 | Outpatient (BNV) | payer MEDICARE, MEDICAID, SELFPAY | PROVIDERS: Admitting Provider Surgery Vascular Surgery; PCP Internal Medicine; Visit Provider Internal Medicine Cardiovascular Disease | DX: G47.33 Obstructive sleep apnea (adult) (pediatric) (principal); J44.9 Chronic obstructive pulmonary disease, unspecified; R06.09 Other forms of dyspnea; N17.9 Acute kidney failure, unspecified; R09.02 Hypoxemia; I50.9 Heart failure, unspecified; N18.30 Chronic kidney disease, stage 3 unspecified; I42.9 Cardiomyopathy, unspecified | CPT/HCPCS: 99499 ==

== ENCOUNTER → 2022-12-14 06:01 | Outpatient (BNV) | payer MEDICARE, MEDICAID, SELFPAY | PROVIDERS: Admitting Provider Surgery Vascular Surgery; PCP Internal Medicine; Visit Provider Surgery Vascular Surgery | DX: I65.21 Occlusion and stenosis of right carotid artery (principal); J44.9 Chronic obstructive pulmonary disease, unspecified; N17.9 Acute kidney failure, unspecified; N18.30 Chronic kidney disease, stage 3 unspecified; I50.9 Heart failure, unspecified; I42.9 Cardiomyopathy, unspecified; G47.33 Obstructive sleep apnea (adult) (pediatric); R09.02 Hypoxemia | CPT/HCPCS: 35301; 99024 ==

== ENCOUNTER 2022-12-31 10:09 | Outpatient (AMB) | payer MEDICARE, MEDICAID, SELFPAY ==
[2022-12-31 10:33] VITALS: BP 104/60; PULSE 92; O2SAT 89; BMI 38.0
--- NOTE | 2022-12-31 10:33 | MHC.OFFVIS ---
Intake Vital Signs 12/31/22 10:33 12/31/22 10:34 Height 5 ft 8 in Weight 250 lb BMI 38.0 BP 104/60 108/66 Blood Pressure Location Lt brachial Rt brachial Position Sitting Sitting Pulse 92 Pulse Source Pulse Oximeter Pulse Oximetry (%) 89 L Oxygen Delivery Method Room Air Intake Visit Reasons: 2 week post Right Carotid endarterectomy 12/14 Intake Note: Pt presents to the office today for a 2 week post right carotid endarterectomy on 12/14. Pt states he is feeling okay. Pts states he sleeps a lot and is still favoring his right side of his body. She states his right foot is still dragging but not as bad as before. Allergies adhesive Allergy (Severe, Verified 12/31/22 10:34) Rash morphine [MORPHINE] Allergy (Severe, Verified 12/31/22 10:34) NAUSEA codeine [CODEINE] Allergy (Intermediate, Verified 12/31/22 10:34) RASH ibuprofen [From MOTRIN] Allergy (Unknown, Verified 12/31/22 10:34) told to avoid due to kidneys HPI 2 week post Right Carotid endarterectomy 12/14 HPI Details Very pleasant 77-year-old gentleman presents for follow-up status post right carotid endarterectomy. He appears to be doing extremely well since that time. He has had no interval difficulties. He is tolerating regular diet. Now for routine postop follow-up [facility] Medical History (Updated 12/31/22 @ 14:51 by Rojas Corona MD) Carotid stenosis, right TIA (transient ischemic attack) Chronic renal failure (CRF), stage 3 (moderate) LBBB (left bundle branch block) Cardiomyopathy CHF (congestive heart failure) Chronic back pain Sleep apnea Oxygen dependent Lung nodule CVA (cerebral vascular accident) Surgical History History of lithotripsy History of vasectomy History of back surgery Family History Father Cirrhosis Mother Myocardial infarction Enlarged heart Sister No problems noted. Sister No problems noted. 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) Alcohol intake: former Year quit: 1979 Patient Tobacco Use Status: Former Tobacco user Quit Date: 1984 Tobacco use type: Cigarette Years Smoked: ~20 e-Cigarette/Vaping Use: Never Used service: Yes Current occupational status: retired Review of Systems Const All systems reviewed & are unremarkable except as noted in HPI and below Reports no additional complaints ENT Reports Normal hearing present Card Denies chest pain, Denies chest pain at rest, Denies chest pain with activity and Denies pedal edema Resp Denies cough GI Denies abdominal pain Musc Denies abnormal gait, Denies muscle cramps and Denies radiating pain into limb Skin/Breast Denies skin ulcer and Denies wounds Neuro Reports Normal hearing present and Denies abnormal gait Psych Reports no additional complaints Physical Exam Vital Signs: Last Vital Signs Pulse 92 12/31/22 10:33 BP 108/66 12/31/22 10:34 Pulse Ox 89 L 12/31/22 10:33 Oxygen Delivery Method Room Air 12/31/22 10:33 BMI result Body Mass Index 38.0 Const General: cooperative, healthy appearing and comfortable Orientation/consciousness: oriented to person, oriented to place and oriented to time HEENT Head: Yes normal to inspection Neck Neck: Yes normal visual inspection Carotids: no bruits Chest Chest palpation & inspection: normal inspection of the chest Resp Effort & Inspection: normal respiratory effort and able to speak in complete sentences Auscultation: clear to auscultation bilaterally, no crackles, no rales, no rhonchi and no wheezes Cardio Rate: regular rate Rhythm: regular rhythm Heart sounds: S1 normal heart sound present and S2 normal heart sound present Bruits: no carotid bruits Peripheral pulses: Peripheral pulses 2+ throughout GI Inspection: Yes normal to inspection Skin Other: Right neck well-healed Wounds: no wounds Hair: normal Neuro General: oriented to person, oriented to place and oriented to time Cranial nerves: Yes CN's II-XII intact bilaterally and Yes Normal hearing present Cognition (Neuro): normal cognition Motor exam (neuro): 5/5 motor strength present throughout Extrem Other: venous exam: No significant superficial varicosities or spider telangiectasias, minimal edema General: No clubbing, No cyanosis and No edema Psych Appearance: grossly normal Mental Status: mental status grossly normal Speech and movement: Normal speech and movement present Assessment & Plan Assessment & Plan (1) Carotid stenosis, right: Comment: 12/14/2022 - right carotid endarterectomy Code(s): I65.21 - Occlusion and stenosis of right carotid artery Plan: In short patient is doing extremely well status post right carotid endarterectomy. We did discuss routine risk factor modification. In addition he does have continued weakness of the right foot which I do believe will improve somewhat over time. He does have a neurology follow-up as well. Will follow up with us in approximately 3 months time with surveillance carotid ultrasound. Thank you for allowing us to assist in his care. If there are any questions or concerns please do not hesitate to contact Orders: Orders US carotid duplex BI 3 Months I65.21 - Occlusion and stenosis of right carotid artery Coding Level of Care Code Est Pt Level 3 (47061) Diagnoses Carotid stenosis, right I65.21
[2022-12-31 10:34] VITALS: BP 108/66
== END 2022-12-31 10:36 | disposition home or self-care (01) ==
PROVIDERS: PCP Internal Medicine; Visit Provider Surgery Vascular Surgery
DX: I65.21 Occlusion and stenosis of right carotid artery (principal)
CPT/HCPCS: 99213

== ENCOUNTER → 2022-12-31 10:09 | Outpatient (BNVA) | payer MEDICARE, MEDICAID, SELFPAY | PROVIDERS: PCP Internal Medicine; Visit Provider Surgery Vascular Surgery | DX: I65.21 Occlusion and stenosis of right carotid artery (principal); I12.9 Hypertensive chronic kidney disease with stage 1 through stage 4 chronic kidney disease, or unspecified chronic kidney disease; N18.30 Chronic kidney disease, stage 3 unspecified; Z98.890 Other specified postprocedural states; Z91.82 Personal history of military deployment; Z99.81 Dependence on supplemental oxygen | CPT/HCPCS: 99212 ==

== ENCOUNTER 2023-03-26 14:00 | Inpatient (IN) | payer MEDICARE, OTHER, SELFPAY ==
[2023-03-26] VITALS (8 sets, daily range): BP systolic 80–109; BP diastolic 34–62; PULSE 62–112; RESP 16–20; TEMP 38.1; O2SAT 90–96; BMI 34.1
--- NOTE | ~2023-03-26 | XR_ITS ---
EXAMINATION: XR CHEST CLINICAL INFORMATION: Fever COMPARISON: Previous chest x-ray most recent October 2022 TECHNIQUE: Frontal view of the chest was obtained. FINDINGS: The cardiac and mediastinal contours are stable. There is increased markings at both lung bases, right greater than left, question representing a small infiltrates. The lungs are otherwise clear. No pleural effusion or pneumothorax. Degenerative changes of the spine. XR/XR chest 1V IMPRESSION: Question small bibasilar infiltrates, right greater than left.
--- NOTE | ~2023-03-26 | CT_ITS ---
EXAMINATION: CT ABDOMEN AND PELVIS WITHOUT CONTRAST CLINICAL INFORMATION: Abdominal pain, diarrhea and fever COMPARISON: Previous CT of the abdomen and pelvis October 2019 TECHNIQUE: Multidetector volumetric imaging was performed from the superior aspect of the liver through the pubic symphysis. Sagittal and coronal reformatted images were obtained on the technologist's workstation. This CT examination was performed using dose optimization techniques as appropriate, variously including the following: *Automated exposure control *Adjustment of mA and/or kV according to patient size (this includes techniques or standardized protocols for targeted exams where dose is matched to indication/reason for exam; i.e. extremities or head) *Use of iterative reconstruction technique DLP: 1120 mGy-cm FINDINGS: LUNG BASES: Right lower lobe airspace disease, question pneumonia. Severe coronary artery calcification. LIVER, GALLBLADDER, AND BILIARY TREE: The liver is normal in size, shape, and attenuation. No focal hepatic lesion or biliary ductal dilatation is present. The gallbladder is unremarkable with no evidence of radiopaque gallstones, gallbladder wall thickening, or obvious pericholecystic inflammatory changes. PANCREAS: Unremarkable. SPLEEN: Small peripheral calcifications. Spleen is upper normal in size measuring 13 cm in length. ADRENAL GLANDS: Unremarkable. KIDNEYS AND URETERS: The right kidney is smaller than the left. Duplicated left renal collecting system. Small nonobstructing right stones largest measuring 2 mm in the lower pole. Question small nonobstructing 1 mm stone in the upper pole of the left kidney. No hydronephrosis, ureteral dilatation or ureteral stone. BLADDER: Unremarkable. GASTROINTESTINAL TRACT: Abnormal small bowel in the lower midabdomen. Minimally dilated. This demonstrates wall thickening, stranding of the surrounding fat and mesentery. This may represent enteritis. Mild diverticulosis of the colon. No evidence of diverticulitis. There may be a small esophageal hernia. The appendix is normal. There is trace ascites in the right lower quadrant. ABDOMINAL WALL: Small umbilical hernia. LYMPH NODES: Normal. VASCULAR: Atherosclerotic disease. No aneurysm PELVIC VISCERA: Unremarkable. OSSEOUS STRUCTURES: Degenerative changes of the spine and hip joints. CT/CT abdomen pelvis wo IV con IMPRESSION: Abnormal small bowel in the central lower abdomen suggestive of enteritis. Trace ascites. Diverticulosis of the colon. No evidence of diverticulitis. Small nonobstructing bilateral renal stones. Probable right lower lobe pneumonia. Fleischner guidelines were followed.
--- NOTE | 2023-03-26 14:18 | ECG_ITS ---
Test Reason : HYPOTENSION Blood Pressure : / mmHG Vent. Rate : 097 BPM Atrial Rate : 097 BPM P-R Int : 168 ms QRS Dur : 078 ms QT Int : 372 ms P-R-T Axes : 062 034 062 degrees QTc Int : 472 ms Normal sinus rhythm Normal ECG When compared with ECG of 07-NOV-2022 23:53, Nonspecific T wave abnormality no longer evident in Inferior leads Nonspecific T wave abnormality no longer evident in Lateral leads Referred By: Nicole Marcano Electronically Signed By:SHANNEN WATERS MD
--- NOTE | 2023-03-26 14:33 | ED_ITS ---
HPI - Nausea/Vomiting/Diarrhea General Chief complaint: Nausea/Vomiting/Diarrhea Stated complaint: INCREASED WEAKNESS NAUSEA VOMITING Source: patient and family Mode of arrival: EMS Limitations: no limitations History of Present Illness HPI Narrative: 78 yo male with PMH of cardiomyopathy last ECHO 55%, some diastolic dysfunction, COPD on home O2, KAREN, obesity, UTI, CVA R sided weakness, DM, CKD here with c/o n/v/d x 3 days and fevers up to 102 as well as abdominal pain n/v/d. No sick contacts. Still took medications unable to eat but has been drinking fluids. Abdomen is tender to touch. MD elicited complaint: nausea, vomiting and abdominal pain Onset (ago): day(s) (3) Description of vomiting: watery Description of diarrhea: watery Associated nausea: Yes Associated abdominal pain: Yes Location of pain: diffuse Radiation: diffuse Pain consistency: constant Severity: severe Quality: stabbing Exacerbating factors: eating and movement Relieving factors: none Associated symptoms: fever/chills, loss of appetite, malaise and nausea/vomiting Related Data Home Medications Medication Instructions Recorded Confirmed albuterol sulfate 90 mcg/actuation 2 puff inhalation Q4H PRN 11/09/20 03/26/23 aerosol inhaler (Ventolin HFA) Shortness Of Breath allopurinol 100 mg tablet 2 tab PO DAILY 11/09/20 03/26/23 carisoprodol 350 mg tablet 2 tab PO TID 11/09/20 03/26/23 glipizide 2.5 mg tablet, extended 1 tab PO BID 11/09/20 03/26/23 release 24 hr omeprazole 20 mg capsule,delayed 1 cap PO DAILY@0630 11/09/20 03/26/23 release losartan 100 mg tablet 50 mg PO DAILY 07/20/22 03/26/23 furosemide 20 mg tablet 20 mg PO DAILY 08/19/22 03/26/23 carvedilol 6.25 mg tablet 6.25 mg PO BID 12/09/22 03/26/23 omega 3-guu-lsg-fish oil 1,000 mg 1 cap PO BID 12/09/22 03/26/23 (120 mg-180 mg) capsule (Fish Oil) oxycodone 20 mg tablet,crush 20 mg PO DAILY@1500 12/09/22 03/26/23 resistant,extended release 12 hr (OxyContin) clopidogrel 75 mg tablet 75 mg PO DAILY 03/26/23 03/26/23 simvastatin 40 mg tablet 40 mg PO DAILY 03/26/23 03/26/23 Previous Rx's Medication Instructions Recorded empagliflozin 10 mg tablet 10 mg PO DAILY #30 tabs 09/14/22 (Jardiance) aspirin 81 mg tablet,delayed 81 mg PO DAILY #30 tabs 11/11/22 release lorazepam 1 mg tablet 1 mg PO TID #4 tabs 11/11/22 oxycodone 30 mg tablet,crush 30 mg PO BID #4 tabs 11/11/22 resistant,extended release 12 hr (OxyContin) fluticasone fur. 100 mcg-umeclid 1 inh inhalation DAILY #60 ea 12/10/22 62.5 mcg-vilant 25 mcg inhalat.powder (Trelegy Ellipta) Allergies Allergy/AdvReac Type Severity Reaction Status Date / Time adhesive Allergy Severe Rash Verified 12/31/22 10:34 morphine [MORPHINE] Allergy Severe NAUSEA Verified 12/31/22 10:34 codeine [CODEINE] Allergy Intermediate RASH Verified 12/31/22 10:34 ibuprofen [From MOTRIN] Allergy Unknown told to Verified 12/31/22 10:34 avoid due to kidneys Review of Systems 2 Review of Systems: Constitutional : No Weight loss, pos Fever, pos Chills ENT/Mouth : No sore throat, No Rhinorrhea Eyes: No Swelling, No Redness Cardiovascular : No Chest Pain, No SOB, NoEdema Respiratory : No Cough, No Sputum, No Wheezing Gastrointestinal : Positive Nausea, Positive Vomiting, positive Diarrhea, positive abdominal Pain, No Hematochezia, No Melena Genitourinary : No Dysuria, No Urinary Frequency, No Hematuria, No Urgency Musculoskeletal : No joint pain, No Myalgias, No Joint Swelling Skin : No Skin Lesions, No rash Neuro : pos Weakness, No Numbness, No Dizziness, No Headache Psych : No Anxiety/Panic, No Depression Heme/Lymph: No Bruising, No Lymphadenopathy Endocrine : No Polyuria, No Polydipsia All other systems reviewed and are negative. Gastrointestinal: Gastrointestinal: Reports nausea PMFSH Past Medical History Attestation statement: The following information was validated with the patient. Source: old records reviewed Medical History Carotid stenosis, right TIA (transient ischemic attack) Chronic renal failure (CRF), stage 3 (moderate) LBBB (left bundle branch block) Cardiomyopathy CHF (congestive heart failure) Chronic back pain Sleep apnea Oxygen dependent Lung nodule CVA (cerebral vascular accident) Surgical History History of lithotripsy History of vasectomy History of back surgery Family History Family History Father Cirrhosis Mother Myocardial infarction Enlarged heart Sister No problems noted. Sister No problems noted. 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) Alcohol intake: former Year quit: 1979 Patient Tobacco Use Status: Former Tobacco user Quit Date: 1984 Tobacco use type: Cigarette Years Smoked: ~20 Smoked in Last 30 Days: No e-Cigarette/Vaping Use: Never Used Use of substances other than those prescribed or required for medical reasons: No Advance Directives: Yes Advance Directives Information Provided: Yes Advance Directives on File: No Nutrition Risks: No Nutritional Risk service: Yes Current occupational status: retired Physical Exam 2 Vital Signs: Vital Signs: Last Vital Signs Temp 100.5 F H 03/26/23 14:18 Pulse 86 03/26/23 20:54 Resp 18 03/26/23 20:54 BP 97/44 L 03/26/23 20:54 Pulse Ox 90 L 03/26/23 20:54 O2 Del Method Room Air 03/26/23 20:54 O2 Flow Rate 4 03/26/23 14:38 Oxygen Flow Rate 4 03/26/23 14:18 BMI result Body Mass Index 34.1 Appearance: Alert. Oriented X3. Mild acute distress. Eyes: Pupils equal, round and reactive to light. ENT: Pharynx dry MM Neck: Normal inspection. Neck supple. CVS: Normal heart rate and rhythm. Pulses normal. Respiratory: No respiratory distress. Breath sounds bases diminished Abdomen: Soft distended with diffuse ttp Skin: Skin warm and dry. pale skin color. Normal skin turgor. Extremities: No lower extremity edema. No calf ttp Neuro: Oriented X 3. No motor deficit. No sensory deficit. Course Course Course Narrative: BP coming up Reevaluation(s) Reevaluation #1: increase trend in BP Reevaluation #2: focused exam for sepsis performed at 5pm Medications Administered Generic Name Dose Route Start Last Admin Trade Name Debbie PRN Reason Stop Dose Admin Sodium Chloride 1,000 mls @ 100 mls/hr 03/26/23 18:45 03/26/23 19:59 Ns IVCONT 100 mls/hr .Q10H AISHWARYA Administration Discontinued Medications Generic Name Dose Route Start Last Admin Trade Name Debbie PRN Reason Stop Dose Admin Acetaminophen 650 mg 03/26/23 14:21 03/26/23 14:47 Acetaminophen 325 Mg Tablet PO 03/26/23 14:22 650 mg ONCE ONE Administration Ceftriaxone Sodium 1 gm/ 50 mls @ 100 mls/hr 03/26/23 14:18 03/26/23 15:33 Sodium Chloride IV 03/26/23 14:47 Infused ONCE ONE Infusion Sodium Chloride 1,000 mls @ 999 mls/hr 03/26/23 14:30 03/26/23 15:35 Ns IV 03/26/23 15:30 Infused .Q1H1M AISHWARYA Infusion Sodium Chloride 1,000 mls @ 999 mls/hr 03/26/23 14:30 03/26/23 15:35 Ns IV 03/26/23 15:30 Infused .Q1H1M AISHWARYA Infusion Sodium Chloride 500 mls @ 500 mls/hr 03/26/23 14:30 03/26/23 16:03 Ns IV 03/26/23 15:29 Infused .Q1H AISHWARYA Infusion Albumin Human 100 mls @ 100 mls/hr 03/26/23 15:27 03/26/23 16:57 Kedbumin 25 % IV 03/26/23 16:26 Infused ONCE ONE Infusion Sodium Chloride 500 mls @ 500 mls/hr 03/26/23 16:45 03/26/23 16:51 Ns IV 03/26/23 17:44 500 mls/hr .Q1H AISHWARYA Administration Azithromycin 500 mg/ Sodium 250 mls @ 125 mls/hr 03/26/23 18:19 03/26/23 18:30 Chloride IV 03/26/23 20:18 125 mls/hr ONCE ONE Administration Ondansetron HCl 4 mg 03/26/23 14:18 03/26/23 14:47 Ondansetron Hcl 4 Mg/2 Ml Vial IVPUSH 03/26/23 14:19 4 mg ONCE ONE Administration Oxycodone HCl 5 mg 03/26/23 20:35 03/26/23 20:54 Oxycodone Hcl Immed Release 5 Mg Tablet PO 03/26/23 20:36 5 mg ONCE ONE Administration Medical Decision Making Medical Decision Making [facility] Narrative: 78 yo male with PMH of cardiomyopathy last ECHO 55%, some diastolic dysfunction, COPD on home O2, KAREN, obesity, UTI, CVA R sided weakness, DM, CKD here with fevers, abdominal pain n/v/d - at this time IVF, labs, cultures, empiric ceftriaxone. CT scan for acute abdominal pathology, EKG and CXR. Patient is obese IBW is 78kg so 2500 cc of fluid ordered for 30cc/kg bolus. I believe patient was still taking diuretics while ill per family Differential Diagnosis Differential Diagnoses: The differential diagnosis associated with the presentation includes UTI, diverticulitis, cholecystitis, pneumonia, viral syndrome, colitis Admission/Observation Consideration of admission/observation: Escalation of care including admission/observation considered admit for continued care and IV antibiotics Consult Healthcare Provider Management of the patient was discussed with: Hospitalist (will admit) Lab Data [facility] Lab Attestation statement: I reviewed the patient's lab results. 03/26/23 14:27 03/26/23 14:27 Labs: Lab Results 03/26/23 03/26/23 03/26/23 Range/Units 14:27 15:03 16:00 WBC 12.6 H (4.8-10.8) X10*3/uL RBC 4.27 L (4.60-5.80) X10*6/uL Hgb 13.4 L (14.0-18.0) g/dl Hct 41.3 L (42.0-52.0) % MCV 96.7 (80.0-98.0) fL MCH 31.4 (27.0-33.0) pg MCHC 32.4 (31.0-36.0) g/dl RDW 14.6 (11.0-16.0) % Plt Count 135 L (160-400) X10*3/uL MPV 10.7 (9.4-12.4) fL Immature Gran % (Auto) 0.7 H (0.0-0.4) % Neut % (Auto) 86.1 H (45-73) % Lymph % (Auto) 3.4 L (20-40) % [place] % (Auto) 9.2 (2-11) % Eos % (Auto) 0.4 (0-4) % Baso % (Auto) 0.2 (0-2) % Lymph # (Auto) 0.4 L (1.2-4.9) X10*3/uL [place] # (Auto) 1.2 (0.1-1.2) X10*3/uL Eos # (Auto) 0.1 (0.0-0.4) X10*3/uL Baso # (Auto) 0.0 (0.0-0.2) X10*3/uL Abs Immat Gran (auto) 0.09 H (0.00-0.03) X10*3/uL Absolute Neuts (auto) 10.8 H (2.0-8.3) x10*3/uL Absolute Nucleated RBC 0.000 (0.0-0.012) X10*3/uL Nucleated RBC % (auto) 0.0 (0.0-0.2) /100WBC Sodium 140 (135-145) mmol/L Potassium 4.3 (3.3-5.1) mmol/L Chloride 105 (96-108) mmol/L Carbon Dioxide 26 (22-29) mmol/L Anion Gap 13 (12-20) BUN 55 H (9-16) mg/dL Creatinine 2.22 H (0.5-1.4) mg/dL Estim Creat Clear Calc 36.9 Estimated GFR 29 Random Glucose 208 H (60-115) mg/dL Lactic Acid 1.9 (0.5-2.0) mmol/L Calcium 8.6 D (8.4-10.2) mg/dL Magnesium 1.8 (1.6-2.6) mg/dL Total Bilirubin 1.6 H (0.0-1.0) mg/dL Direct Bilirubin 1.1 H (0.0-0.5) mg/dL AST 31 (5-37) U/L ALT 34 (0-40) U/L Alkaline Phosphatase 245 H (39-117) U/L Troponin I High Sens 36.3 H D (<3.5-35.0) ng/L B-Natriuretic Peptide 140 H (<100) pg/mL Total Protein 6.4 L (6.5-8.0) g/dL Albumin 3.5 (3.5-5.0) g/dL Lipase 16 (8-78) U/L Procalcitonin 2.37 ng/mL Urine Color Dark Yellow Urine Appearance Clear Urine pH 5.5 (5.0-9.0) Ur Specific [place] 1.015 (1.005-1.025) Urine Protein Negative (Neg-Trace) mg/dL Urine Glucose (UA) >=1000 H (Negative) mg/dL Urine Ketones Negative (Negative) mg/dL Urine Blood Small (1+) H (Negative) Urine Nitrite Negative (Negative) Ur Leukocyte Esterase Small (1+) H (Negative) Urine RBC 3-5 H (0-2) /HPF Urine WBC 6-10 H (0-5) /HPF Ur Squamous Epith Cells 0-2 (0-2) /HPF Other Crystals Present Urine Bacteria 1+ (None Seen) Hyaline Casts 0-2 (0-2) /LPF Influenza Type A (PCR) NEGATIVE (Negative) Influenza Type B (PCR) NEGATIVE (Negative) RSV RNA Qual (PCR) NEGATIVE (Negative) SARS-CoV-2 RNA (RT-PCR) NEGATIVE (Negative) 03/26/23 Range/Units 16:37 WBC (4.8-10.8) X10*3/uL RBC (4.60-5.80) X10*6/uL Hgb (14.0-18.0) g/dl Hct (42.0-52.0) % MCV (80.0-98.0) fL MCH (27.0-33.0) pg MCHC (31.0-36.0) g/dl RDW (11.0-16.0) % Plt Count (160-400) X10*3/uL MPV (9.4-12.4) fL Immature Gran % (Auto) (0.0-0.4) % Neut % (Auto) (45-73) % Lymph % (Auto) (20-40) % [place] % (Auto) (2-11) % Eos % (Auto) (0-4) % Baso % (Auto) (0-2) % Lymph # (Auto) (1.2-4.9) X10*3/uL [place] # (Auto) (0.1-1.2) X10*3/uL Eos # (Auto) (0.0-0.4) X10*3/uL Baso # (Auto) (0.0-0.2) X10*3/uL Abs Immat Gran (auto) (0.00-0.03) X10*3/uL Absolute Neuts (auto) (2.0-8.3) x10*3/uL Absolute Nucleated RBC (0.0-0.012) X10*3/uL Nucleated RBC % (auto) (0.0-0.2) /100WBC Sodium (135-145) mmol/L Potassium (3.3-5.1) mmol/L Chloride (96-108) mmol/L Carbon Dioxide (22-29) mmol/L Anion Gap (12-20) BUN (9-16) mg/dL Creatinine (0.5-1.4) mg/dL Estim Creat Clear Calc Estimated GFR Random Glucose (60-115) mg/dL Lactic Acid (0.5-2.0) mmol/L Calcium (8.4-10.2) mg/dL Magnesium (1.6-2.6) mg/dL Total Bilirubin (0.0-1.0) mg/dL Direct Bilirubin (0.0-0.5) mg/dL AST (5-37) U/L ALT (0-40) U/L Alkaline Phosphatase (39-117) U/L Troponin I High Sens 38.0 H (<3.5-35.0) ng/L B-Natriuretic Peptide (<100) pg/mL Total Protein (6.5-8.0) g/dL Albumin (3.5-5.0) g/dL Lipase (8-78) U/L Procalcitonin ng/mL Urine Color Urine Appearance Urine pH (5.0-9.0) Ur Specific [place] (1.005-1.025) Urine Protein (Neg-Trace) mg/dL Urine Glucose (UA) (Negative) mg/dL Urine Ketones (Negative) mg/dL Urine Blood (Negative) Urine Nitrite (Negative) Ur Leukocyte Esterase (Negative) Urine RBC (0-2) /HPF Urine WBC (0-5) /HPF Ur Squamous Epith Cells (0-2) /HPF Other Crystals Urine Bacteria (None Seen) Hyaline Casts (0-2) /LPF Influenza Type A (PCR) (Negative) Influenza Type B (PCR) (Negative) RSV RNA Qual (PCR) (Negative) SARS-CoV-2 RNA (RT-PCR) (Negative) Independent Interpretation I performed an independent interpretation of an: EKG, Plain X-Ray and CT Scan (enteritis, RLL pneumonia) Interpretation: Rate: 97 Rhythm: NSR [place]: normal Normal P waves. Normal HECTOR. Normal QRS complex. ST T wave : normal no KYLE qTC: normal prior studies: no acute ischemia The study has been interpreted contemporaneously by me. . Radiology Impression Discussion of test interpretation with radiology: I have reviewed the radiologist's reading. Independent Historian Clinical information obtained from an independent historian. History obtained from or confirmed by: EMS and Other (daughter) External Record Review External record reviewed: Inpatient record Critical Care Time Critical Care Time Critical Care Time: Yes Total Critical Care Time: 60 Attestation: IVF resuscitation, rechecks, IV antibiotics, medical consult, admission I attest to this time spent taking care of the patient Discharge Plan Discharge Clinical Impression: Enteritis, [place] (acute kidney injury) Pneumonia Qualifiers: Pneumonia type: due to unspecified organism Laterality: right Lung location: l ower lobe of lung Qualified Code(s): J18.9 - Pneumonia, unspecified organism Elevated WBC count Qualifiers: Leukocytosis type: unspecified Qualified Code(s): D72.829 - Elevated white blood cell count, unspecified Patient Disposition: Admitted As Inpatient
[2023-03-26] MEDS: 0.9 % Sodium Chloride 1,000 ML 999 ML IV ×2 (14:34→14:35)
[2023-03-26 14:42] LABS: MANUAL DIFF FLAG NO
[2023-03-26] MEDS: Acetaminophen 325 MG TABLET 650 MG PO (14:47)
[2023-03-26] MEDS: ondansetron HCL 4 MG/2 ML VIAL IVPUSH (14:47)
[2023-03-26 14:48] LABS: Basophils Percent Auto 0.2 % (0-2); Eosinophils Absolute Auto 0.1 X10*3/uL (0.0-0.4); Eosinophils Percent Auto 0.4 % (0-4); Hematocrit 41.3 % (42.0-52.0); Hemoglobin 13.4 g/dl (14.0-18.0); Imm Gran Abs Auto 0.09 X10*3/uL (0.00-0.03); Imm Gran Pct Auto 0.7 % (0.0-0.4); Lymphocytes Absolute Auto 0.4 X10*3/uL (1.2-4.9); Lymphocytes Percent Auto 3.4 % (20-40); Mean Corpuscular HGB Conc 32.4 g/dl (31.0-36.0); Mean Corpuscular Hemoglobin 31.4 pg (27.0-33.0); Mean Corpuscular Volume 96.7 fL (80.0-98.0); Mean Platelet Volume 10.7 fL (9.4-12.4); Monocytes Absolute Auto 1.2 X10*3/uL (0.1-1.2); Monocytes Percent Auto 9.2 % (2-11); Neutrophils Absolute Auto 10.8 x10*3/uL (2.0-8.3); Neutrophils Percent Auto 86.1 % (45-73); Platelet Count 135 X10*3/uL (160-400); Red Blood Count 4.27 X10*6/uL (4.60-5.80); Red Cell Distribution Width 14.6 % (11.0-16.0); White Blood Count 12.6 X10*3/uL (4.8-10.8)
[2023-03-26] MEDS: cefTRIAXone sodium 1 GM in 0.9 % Sodium Chloride 50 ML IV (15:03)
[2023-03-26] MEDS: 0.9 % Sodium Chloride 500 ML IV ×2 (15:03→16:51)
[2023-03-26 15:08] LABS: B Type Natriuretic Peptide 140 pg/mL (<100); Troponin-I High Sensitivity 36.3 ng/L (<3.5-35.0)
[2023-03-26 15:09] LABS: Lactic Acid 1.9 mmol/L (0.5-2.0)
[2023-03-26 15:13] LABS: Alanine Aminotransferase 34 U/L (0-40); Albumin Level 3.5 g/dL (3.5-5.0); Alkaline Phosphatase 245 U/L (39-117); Anion Gap 13 (12-20); Aspartate Amino Transferase 31 U/L (5-37); Bilirubin Direct 1.1 mg/dL (0.0-0.5); Bilirubin Total 1.6 mg/dL (0.0-1.0); Blood Urea Nitrogen 55 mg/dL (9-16); Calcium 8.6 mg/dL (8.4-10.2); Carbon Dioxide 26 mmol/L (22-29); Chloride 105 mmol/L (96-108); Creatinine Clr Calc Pharmacy 36.9; Estimated Glomerular Filt Rate 29; Glucose Random 208 mg/dL (60-115); Lipase 16 U/L (8-78); Magnesium 1.8 mg/dL (1.6-2.6); Potassium 4.3 mmol/L (3.3-5.1); Sodium 140 mmol/L (135-145); Total Protein 6.4 g/dL (6.5-8.0)
[2023-03-26 15:23] LABS: Procalcitonin 2.37 ng/mL
[2023-03-26] MEDS: Albumin Human 25 % 100 ML IV (15:47)
[2023-03-26 15:53] LABS: Influenza A PCR NEGATIVE (Negative); Influenza B PCR NEGATIVE (Negative); Resp Syncy Virus RNA Qual PCR NEGATIVE (Negative); SARS COV2 PCR INHOUSE NEGATIVE (Negative)
[2023-03-26 16:10] LABS: Appearance Urine Clear; Color Urine Dark Yellow; Glucose Urine UA >=1000 mg/dL (Negative); Leukocyte Esterase Urine Small (1+) (Negative); Nitrite Urine Negative (Negative); PH 5.5 (5.0-9.0); Specific Gravity - Urine 1.015 (1.005-1.025); UMIC TRIGGER UACC YES; Urine Blood Small (1+) (Negative); Urine Ketones Negative (Negative); Urine Protein Negative (Neg-Trace)
[2023-03-26 16:19] LABS: Bacteria Urine 1+ (None Seen); Hyaline Casts Urine 0-2 /LPF (0-2); Squamous Epithelial Cell Urine 0-2 /HPF (0-2); UACC Culture Trigger YES
[2023-03-26 16:20] LABS: Other Crystals Urine Present
[2023-03-26] MEDS: Azithromycin 500 MG in 0.9 % Sodium Chloride 250 ML 125 MG IV (18:30)
--- NOTE | 2023-03-26 19:12 | PHA.MEDREC ---
Pharmacy Consult ? Medication Reconciliation Pharmacy has completed the medication reconciliation. Spoke to patients Daughter emigdio handles his medications
--- NOTE | 2023-03-26 19:22 | PM.IMHP ---
History of Present Illness Date of Service: 03/26/23 Attending physician on admission: Juaquin Stack Chief Complaint: Nausea, vomiting, generalized weakness Pt is a 78-year-old male with a PMH significant for?CVA, HFpEF with last echo LV EF of 55-60%, cardiomyopathy, COPD on prn home O2, [id number]-[id number] diabetes type 2, and chronic back pain on chronic opioids who presents to the ED with?for evaluation of generalized weakness and not feeling well. Patient states that 3 days prior he became ill with nausea, a little vomiting, and lower abdominal pain. Reports fever and chills with fever measured at home as high as 103 degrees. No diarrhea. Nausea and vomiting did not return, and abdominal pain improved over the next 2 days. However, patient states when he awoke today he felt very fatigued and weak, was unable to ambulate. Patient states that he has not been eating or drinking much of anything the past 3 days. Has chronic shortness of breath and cough which he states is around baseline. Patient is on p.r.n. home O2 and reports not having to use his oxygen these past few days. Patient presents today due to how fatigued and weak he feels. Denies chest pain/pressure, palpitations. In the ED pt with elevated temperature of 100.5 degrees, tachycardic up to 104 initially hypotensive as low as 80/34, satting at 93% on 4 L NC. Labs were significant for leukocytosis of 12.6, H&H 13.4/41.3, BUN 55, creatinine 2.22, bilirubin 1.6, alk-phos 245, initial troponin 36.3 with repeat flat at 38.0, and BNP slightly elevated at 140. UA likely negative for UTI. Patient tested negative for influenza type a and B, RSV, COVID. CXR showed question of small bibasilar infiltrates with right greater than left. CT of abdomen pelvis found abnormal small bowel in the central lower abdomen suggestive of enteritis with trace ascites and diverticulosis but no evidence of diverticulitis. Also demonstrated probable right lower lobe pneumonia. EKG demonstrated showed normal sinus rhythm with no evidence of ST elevations or depressions. Pt was treated with IVF, ondansetron, acetaminophen, ceftriaxone, azithromycin, and albumin. Pt will be admitted to the hospital for treatment further evaluation of MARICHUY and generalized weakness in a setting of acute pneumonia. Review of Systems Review of Systems: Nausea, vomiting Lower abdominal pain Fever, chills Fatigue, generalized weakness Anorexia Chronic SOB and cough Denies chest pain/pressure, palpitations [facility] Medical History Carotid stenosis, right TIA (transient ischemic attack) Chronic renal failure (CRF), stage 3 (moderate) LBBB (left bundle branch block) Cardiomyopathy CHF (congestive heart failure) Chronic back pain Sleep apnea Oxygen dependent Lung nodule CVA (cerebral vascular accident) Family History Father Cirrhosis Mother Myocardial infarction Enlarged heart Sister No problems noted. Sister No problems noted. Surgical History History of lithotripsy History of vasectomy History of back surgery Social History Household Members: Family Household Members Other:: 8 Housing: House Do you presently have visiting nurse or other home services: Yes ([employer]) Alcohol intake: former Year quit: 1979 Patient Tobacco Use Status: Former Tobacco user Quit Date: 1984 Tobacco use type: Cigarette Years Smoked: ~20 e-Cigarette/Vaping Use: Never Used service: Yes Current occupational status: retired Meds Allergies Allergy/AdvReac Type Severity Reaction Status Date / Time adhesive Allergy Severe Rash Verified 12/31/22 10:34 morphine [MORPHINE] Allergy Severe NAUSEA Verified 12/31/22 10:34 codeine [CODEINE] Allergy Intermediate RASH Verified 12/31/22 10:34 ibuprofen [From MOTRIN] Allergy Unknown told to Verified 12/31/22 10:34 avoid due to kidneys Active Medications: Current Medications Azithromycin 500 mg/ Sodium (Chloride) 250 mls @ 125 mls/hr IV ONCE ONE Stop: 03/26/23 20:18 Last Admin: 03/26/23 18:30 Dose: 125 mls/hr Sodium Chloride (Ns) 1,000 mls @ 100 mls/hr IVCONT .Q10H [facility] Home Medications Medication Instructions Recorded Confirmed Last Taken Type albuterol sulfate 90 mcg/actuation 2 puff inhalation Q4H PRN 11/09/20 03/26/23 12/13/22 History aerosol inhaler (Ventolin HFA) Shortness Of Breath allopurinol 100 mg tablet 2 tab PO DAILY 11/09/20 03/26/23 12/13/22 History carisoprodol 350 mg tablet 2 tab PO TID 11/09/20 03/26/23 12/13/22 History glipizide 2.5 mg tablet, extended 1 tab PO BID 11/09/20 03/26/23 12/13/22 History release 24 hr omeprazole 20 mg capsule,delayed 1 cap PO DAILY@0630 11/09/20 03/26/23 12/14/22 04:00 History release losartan 100 mg tablet 50 mg PO DAILY 07/20/22 03/26/23 12/13/22 History furosemide 20 mg tablet 20 mg PO DAILY 08/19/22 03/26/23 12/13/22 History carvedilol 6.25 mg tablet 6.25 mg PO BID 12/09/22 03/26/23 12/14/22 04:00 History omega 2-kfx-uzc-fish oil 1,000 mg 1 cap PO BID 12/09/22 03/26/23 12/13/22 History (120 mg-180 mg) capsule (Fish Oil) oxycodone 20 mg tablet,crush 20 mg PO DAILY@1500 12/09/22 03/26/23 12/14/22 04:00 History resistant,extended release 12 hr (OxyContin) clopidogrel 75 mg tablet 75 mg PO DAILY 03/26/23 03/26/23 Unknown History simvastatin 40 mg tablet 40 mg PO DAILY 03/26/23 03/26/23 Unknown History Physical Exam Vital Signs and Narrative: Vital Signs: Last Vital Signs Temp 100.5 F H 03/26/23 14:18 Pulse 86 03/26/23 18:37 Resp 18 03/26/23 18:37 BP 109/55 L 03/26/23 18:37 Pulse Ox 94 03/26/23 15:20 O2 Del Method Room Air 03/26/23 15:20 O2 Flow Rate 4 03/26/23 14:38 Oxygen Flow Rate 4 03/26/23 14:18 BMI result Body Mass Index 34.1 Constitutional: Alert, in no acute distress. Mental Status: Oriented to person, place and time. Eyes: Pupils are equal, round, and reactive to light. Ear, Nose, and Throat: Oropharynx clear, mucous membranes moist. Ears and nose without deformities. Trachea midline. Respiratory: Clear to auscultation bilaterally though diminished. No wheezing, rales, or rhonchi. Cardiovascular: S1, S2 regular. No murmurs, rubs, or gallops. Gastrointestinal: Abdomen soft, obese, with diffuse lower abdominal tenderness. Neurologic: Cranial nerves II-XII are grossly intact bilaterally. No focal neurological deficits. Moves all extremities spontaneously. Skin: Warm, dry. Musculoskeletal: No cyanosis or clubbing. Extremities: No edema. Psychiatric: Normal mood and affect. Results Labs 03/26/23 14:27 03/26/23 14:27 Labs: Laboratory Results - last 24 hr 03/26/23 03/26/23 03/26/23 14: 15:03 16:00 MCV 96.7 MCH 31.4 MCHC 32.4 RDW 14.6 Plt Count 135 L MPV 10.7 Immature Gran % (Auto) 0.7 H Neut % (Auto) 86.1 H Lymph % (Auto) 3.4 L [place] % (Auto) 9.2 Eos % (Auto) 0.4 Baso % (Auto) 0.2 Lymph # (Auto) 0.4 L [place] # (Auto) 1.2 Eos # (Auto) 0.1 Baso # (Auto) 0.0 Abs Immat Gran (auto) 0.09 H Absolute Neuts (auto) 10.8 H Absolute Nucleated RBC 0.000 Nucleated RBC % (auto) 0.0 Anion Gap 13 Estim Creat Clear Calc 36.9 Estimated GFR 29 Random Glucose 208 H Lactic Acid 1.9 Calcium 8.6 D Magnesium 1.8 Total Bilirubin 1.6 H Direct Bilirubin 1.1 H AST 31 ALT 34 Alkaline Phosphatase 245 H B-Natriuretic Peptide 140 H Total Protein 6.4 L Albumin 3.5 Lipase 16 Procalcitonin 2.37 Urine Color Dark Yellow Urine Appearance Clear Urine pH 5.5 Ur Specific [place] 1.015 Urine Protein Negative Urine Glucose (UA) >=1000 H Urine Ketones Negative Urine Blood Small (1+) H Urine Nitrite Negative Ur Leukocyte Esterase Small (1+) H Urine RBC 3-5 H Urine WBC 6-10 H Ur Squamous Epith Cells 0-2 Other Crystals Present Urine Bacteria 1+ Hyaline Casts 0-2 Influenza Type A (PCR) NEGATIVE Influenza Type B (PCR) NEGATIVE RSV RNA Qual (PCR) NEGATIVE SARS-CoV-2 RNA (RT-PCR) NEGATIVE Imaging Radiologist's Impressions: Impressions Abdomen/Pelvis CT 03/26/23 17:06 IMPRESSION: Abnormal small bowel in the central lower abdomen suggestive of enteritis. Trace ascites. Diverticulosis of the colon. No evidence of diverticulitis. Small nonobstructing bilateral renal stones. Probable right lower lobe pneumonia. Fleischner guidelines were followed. Chest X-Ray 03/26/23 17:25 IMPRESSION: Question small bibasilar infiltrates, right greater than left. Assessment and Plan (1) MARICHUY (acute kidney injury): Status: Acute (2) Enteritis: Status: Acute (3) Pneumonia: Qualifiers: Laterality: right Lung location: lower lobe of lung Pneumonia type: due to unspecified organism Qualified Code(s): J18.9 - Pneumonia, unspecified organism Status: Acute Plan Pt is a 78-year-old male with a PMH significant for?CVA, HFpEF with last echo LV EF of 55-60%, cardiomyopathy, COPD on prn home O2, yzo-rorjkql-foyojqxct diabetes type 2, and chronic back pain on chronic opioids who presents to the ED with?for evaluation of generalized weakness and not feeling well. Pt will be admitted to the hospital for treatment further evaluation of MARICHUY and generalized weakness in a setting of acute pneumonia. Pneumonia CXR with evidence bibasilar infiltrates with right greater than left; CT of abdomen with evidence of right lower lobe pneumonia Pt meets sepsis criteria: Tachycardia, leukocytosis; lactic acid WNL at 1.9 Will treat with ceftriaxone and azithromycin, started 03/26/2023 Duonebs p.r.n. Continue home inhalers Patient currently not hypoxic; supplemental O2 p.r.n. to maintain O2 >92% Gastroenteritis CT of abdomen and pelvis found an abnormal small bowel in the central lower abdomen suggestive of enteritis Pt with one day of nausea with some vomiting, abd pain x3 days, no diarrhea Will treat symptomatically with IVF and analgesics, diet as tolerated Patient on home opioids which we will continue Patient placed on maintenance IVF If patient develops diarrhea, consider GI panel, C diff testing MARICHUY on CKD Creatinine 2.22 at time of presentation, up from 1.27 on 12/15/2022 Likely secondary to dehydration from GI losses and reduced p.o. intake while continuing to take home Lasix Patient received IVF in the ED Will place on maintenance fluids Follow BMP Elevated troponins Initial troponin 36.3 with repeat flat at 38.0 Patient asymptomatic: EKG without acute ischemic changes Likely type 2 in the setting of demand ischemia Hypotension Patient initially hypotensive at 80/34, responded well to fluids in the ED Has been placed maintenance fluids Monitor BP closely Hx of CVA Continue aspirin, Plavix HFpEF Not in acute exacerbation Continue home furosemide Chronic back pain Patient with history of 3 back surgeries Continue home oxycodone Hx of gout Continue allopurinol Hgk-yrsnrqd-wvorprzyv diabetes type 2 Continue glipizide, Jardiance Will place on sliding scale insulin Diabetic diet Full Code Attending:?Dr. Stack DVT Prophylaxis: Lovenox Pt will require a hospitalization of at least two nights for for treatment further evaluation of MARICHUY and generalized weakness in a setting of acute pneumonia. Patient requires IV antibiotics, IVF, and close monitoring of labs and blood pressure. Quality Stroke Does the patient have a stroke diagnosis?: No VTE Prior VTE?: No VTE Risk Level:: Medical - moderate - high VTE Device Contraindication: Treatment Not Indicated VTE Drug Contraindication: N/A - Med Ordered
[2023-03-26] MEDS: 0.9 % Sodium Chloride 1,000 ML 100 ML IVCONT (19:59)
--- NOTE | 2023-03-26 20:34 | PC.NURSE ---
Patient alert and oriented x 3. NOORVIK. Patient voids in urinal, urine dark concentrated yellow. Patient c/o 8/10 pain in abdomen after his ultrasound. Patient has 2 iv's in right arm both 20g. Blood pressure were soft now stable. Patient denies chest pain, sob, and dizziness. Bun 55 cr-2.2 lactic-1.9 fluids given and iv antibiotics. Patient to be admitted. Will continue with plan of care.
[2023-03-26] MEDS: oxyCODONE HCl Immed Release 5 MG TABLET PO (20:54)
[2023-03-26] MEDS: carvediloL 6.25 MG TABLET PO (22:11)
[2023-03-26] MEDS: Enoxaparin Sodium 40 MG/0.4 ML SYRINGE SUBCUT (22:11)
[2023-03-26] MEDS: carisoprodoL 350 MG TABLET 700 MG PO (22:11)
[2023-03-26] MEDS: LORazepam 1 MG TABLET PO (22:11)
[2023-03-26] MEDS: oxyCODONE HCl ER 10 MG TAB.ER.12H 30 MG PO (22:12)
[2023-03-26] MEDS: glipiZIDE XL 2.5 MG TAB.ER.24 PO (23:23)
[2023-03-27] VITALS (8 sets, daily range): BP systolic 107–148; BP diastolic 48–65; PULSE 77–89; RESP 16–20; TEMP 36.4–36.9; O2SAT 88–93
[2023-03-27] MEDS: Omeprazole 20 MG CAPSULE.DR PO (06:09)
[2023-03-27] MEDS: 0.9 % Sodium Chloride 1,000 ML 100 ML IVCONT ×2 (06:10→14:31)
[2023-03-27 06:50] LABS: Anion Gap 13 (12-20); Blood Urea Nitrogen 42 mg/dL (9-16); Calcium 8.5 mg/dL (8.4-10.2); Carbon Dioxide 24 mmol/L (22-29); Chloride 111 mmol/L (96-108); Creatinine Clr Calc Pharmacy 50.8; Estimated Glomerular Filt Rate 42; Glucose Random 94 mg/dL (60-115); Potassium 4.1 mmol/L (3.3-5.1); Sodium 144 mmol/L (135-145)
[2023-03-27 07:08] LABS: Hematocrit 37.6 % (42.0-52.0); Mean Corpuscular HGB Conc 31.9 g/dl (31.0-36.0); Mean Corpuscular Hemoglobin 31.4 pg (27.0-33.0); Mean Corpuscular Volume 98.4 fL (80.0-98.0); Mean Platelet Volume 11.1 fL (9.4-12.4); Platelet Count 115 X10*3/uL (160-400); Red Blood Count 3.82 X10*6/uL (4.60-5.80); Red Cell Distribution Width 14.9 % (11.0-16.0)
[2023-03-27 08:03] LABS: Glucose, Whole Blood 95 mg/dL (60-115)
[2023-03-27 08:33] LABS: Alanine Aminotransferase 24 U/L (0-40); Albumin Level 3.3 g/dL (3.5-5.0); Alkaline Phosphatase 172 U/L (39-117); Aspartate Amino Transferase 16 U/L (5-37); Bilirubin Direct 0.5 mg/dL (0.0-0.5); Total Protein 6.2 g/dL (6.5-8.0)
[2023-03-27] MEDS: Empagliflozin 10 MG TABLET PO (09:16)
[2023-03-27] MEDS: Atorvastatin Calcium 20 MG TABLET PO (09:16)
[2023-03-27] MEDS: carvediloL 6.25 MG TABLET PO ×2 (09:16→20:06)
[2023-03-27] MEDS: Aspirin Enteric Coated 81 MG TABLET.DR PO (09:16)
[2023-03-27] MEDS: 0.9 % Sodium Chloride Flush 3 ML SYRINGE IVFLUSH (09:16)
[2023-03-27] MEDS: oxyCODONE HCl ER 10 MG TAB.ER.12H 30 MG PO ×2 (09:16→20:07)
[2023-03-27] MEDS: LORazepam 1 MG TABLET PO ×3 (09:16→20:06)
[2023-03-27] MEDS: allopurinoL 100 MG TABLET 200 MG PO (09:17)
[2023-03-27] MEDS: Clopidogrel Bisulfate 75 MG TABLET PO (09:17)
[2023-03-27] MEDS: carisoprodoL 350 MG TABLET 700 MG PO ×3 (10:14→20:06)
[2023-03-27 11:16] LABS: Glucose, Whole Blood 128 mg/dL (60-115)
--- NOTE | 2023-03-27 13:51 | HO.PM.IMPN ---
Subjective Subjective Date of Service: 03/27/23 Interval History: seen and examined this morning follow up for pneumonia, gastroenteritis no further vomiting, some abdominal soreness from vomiting; no sob Review of Systems Review of Systems: Yes all other systems are reviewed and are negative Constitutional Constitutional: Denies chills and Denies fever(s) Cardiovascular Cardiovascular: Denies chest pain, Denies palpitations and Denies dyspnea Respiratory Respiratory: Denies dyspnea Gastrointestinal Gastrointestinal: Reports abdominal pain and Denies vomiting Endocrine Endocrine: Denies palpitations Physical Exam Vital Signs: Vital Signs: Last Vital Signs Temp 98.0 F 03/27/23 07:31 Pulse 89 03/27/23 07:31 Resp 20 03/27/23 07:31 BP 129/65 03/27/23 07:31 Pulse Ox 88 L 03/27/23 07:31 O2 Del Method Nasal Cannula 03/27/23 07:31 O2 Flow Rate 2 03/27/23 07:31 Oxygen Flow Rate 4 03/26/23 14:18 BMI result Body Mass Index 34.1 Const: General: cooperative, comfortable, alert and awake Nutritional Appearance: overweight Orientation/consciousness: patient oriented x3 Resp: Effort & Inspection: normal respiratory effort, no respiratory distress and no use of accessory muscles Cardio: Rate: regular rate GI: Inspection: No distended Palpation (GI): Soft to palpation and nontender Neuro: General: patient oriented x3, moves all extremities and CN's II-XI intact bilaterally Extrem: General: Yes no pedal edema Objective Data Active Medications Acetaminophen (Acetaminophen 325 Mg Tablet) 650 mg PO Q6H PRN PRN Reason: Pain, Mild (Pain Scale 1-3) Albuterol Sulfate (Albuterol Sulfate 90 Mcg 8 Gm Inhaler) 2 puff INHALE Q4H PRN PRN Reason: Shortness Of Breath Albuterol/Ipratropium (Albuterol/Iprat 2.5/0.5mg 3 Ml Ampul.Neb) 3 ml INHALE RQ4H WHILE AWAKE PRN PRN Reason: Shortness of Breath Allopurinol (Allopurinol 100 Mg Tablet) 200 mg PO DAILY ON LICENSE OF [facility] Last Admin: 03/27/23 09:17 Dose: 200 mg Documented By: CHAPINNM Aspirin (Aspirin Enteric Coated 81 Mg Tablet.) 81 mg PO DAILY ON LICENSE OF [facility] Last Admin: 03/27/23 09:16 Dose: 81 mg Documented By: PERCY Atorvastatin Calcium (Atorvastatin Calcium 20 Mg Tablet) 20 mg PO DAILY ON LICENSE OF [facility] Last Admin: 03/27/23 09:16 Dose: 20 mg Documented By: PERCY Benzonatate (Benzonatate 100 Mg Capsule) 100 mg PO TID PRN PRN Reason: Cough Carisoprodol (Carisoprodol 350 Mg Tablet) 700 mg PO TID ON LICENSE OF [facility] Last Admin: 03/27/23 10:14 Dose: 700 mg Documented By: LIANNE Carvedilol (Carvedilol 6.25 Mg Tablet) 6.25 mg PO BID ON LICENSE OF [facility]; Protocol Last Admin: 03/27/23 09:16 Dose: 6.25 mg Documented By: PERCY Clopidogrel Bisulfate (Clopidogrel Bisulfate 75 Mg Tablet) 75 mg PO DAILY ON LICENSE OF [facility] Last Admin: 03/27/23 09:17 Dose: 75 mg Documented By: PERCY Dextrose (Dextrose 50 % 25 Gm/50 Ml Syringe) 25 gm IVPUSH Q15M PRN; Protocol PRN Reason: per Hypoglycemia Standing Ord. Docusate Sodium (Docusate Sodium 100 Mg Capsule) 100 mg PO DAILY PRN PRN Reason: Constipation Empagliflozin (Empagliflozin 10 Mg Tablet) 10 mg PO DAILY ON LICENSE OF [facility] Last Admin: 03/27/23 09:16 Dose: 10 mg Documented By: PERCY Enoxaparin Sodium (Enoxaparin Sodium 40 Mg/0.4 Ml Syringe) 40 mg SUBCUT Q24H ON LICENSE OF [facility] Last Admin: 03/26/23 22:11 Dose: 40 mg Documented By: ROMY Fluticasone/Umeclidinium/Vilanterol (Fluticasone/Umeclidinium/Vilanterol 100/62.5/25 Blst.W.Dev) 1 puff INHALE RDAILY ON LICENSE OF [facility] Last Admin: 03/27/23 08:49 Dose: Not Given Documented By: KEMAR Non-Admin Reason: Med Not Available Glucose (Glucose Gel 15 Gm Gel..Gram.) 15 gm PO Q15M PRN; Protocol PRN Reason: per Hypoglycemia Standing Ord. Sodium Chloride (Ns) 1,000 mls @ 100 mls/hr IVCONT .Q10H ON LICENSE OF [facility] Last Admin: 03/27/23 06:10 Dose: 100 mls/hr Documented By: KAILASH Ceftriaxone Sodium 1 gm/ (Sodium Chloride) 50 mls @ 100 mls/hr IV Q24H ON LICENSE OF [facility] Azithromycin 500 mg/ Sodium (Chloride) 250 mls @ 125 mls/hr IV Q24H ON LICENSE OF [facility] Insulin Human Lispro (Insulin Lispro 100 Unit/Ml 3 Ml Vial) 0 unit SUBCUT QIDACHS ON LICENSE OF [facility]; Protocol Last Admin: 03/27/23 11:24 Dose: Not Given Documented By: LIANNE Non-Admin Reason: No Insulin Coverage Lorazepam (Lorazepam 1 Mg Tablet) 1 mg PO TID ON LICENSE OF [facility] Last Admin: 03/27/23 09:16 Dose: 1 mg Documented By: PERCY Melatonin (Melatonin 3 Mg Tablet) 6 mg PO BEDTIME PRN PRN Reason: Insomnia Omeprazole (Omeprazole 20 Mg Capsule.Dr) 20 mg PO DAILY@0630 ON LICENSE OF [facility] Last Admin: 03/27/23 06:09 Dose: 20 mg Documented By: KAILASH Ondansetron HCl (Ondansetron Hcl 4 Mg/2 Ml Vial) 4 mg IVPUSH Q8H PRN PRN Reason: Nausea and Vomiting Oxycodone HCl (Oxycodone Hcl Er 10 Mg Tab.Er.12h) 20 mg PO DAILY@1500 ON LICENSE OF [facility] Oxycodone HCl (Oxycodone Hcl Er 10 Mg Tab.Er.12h) 30 mg PO BID ON LICENSE OF [facility] Last Admin: 03/27/23 09:16 Dose: 30 mg Documented By: PERCY Sodium Chloride (0.9 % Sodium Chloride Flush 3 Ml Syringe) 3 ml IVFLUSH QSHIFT ON LICENSE OF [facility] Last Admin: 03/27/23 09:16 Dose: 3 ml Documented By: PERCY Labs 03/27/23 06:13 03/27/23 06:13 Labs: Laboratory Results - last 24 hr 03/26/23 03/26/23 03/26/23 14:27 15:03 16:00 MCV 96.7 MCH 31.4 MCHC 32.4 RDW 14.6 Plt Count 135 L MPV 10.7 Immature Gran % (Auto) 0.7 H Neut % (Auto) 86.1 H Lymph % (Auto) 3.4 L [place] % (Auto) 9.2 Eos % (Auto) 0.4 Baso % (Auto) 0.2 Lymph # (Auto) 0.4 L [place] # (Auto) 1.2 Eos # (Auto) 0.1 Baso # (Auto) 0.0 Abs Immat Gran (auto) 0.09 H Absolute Neuts (auto) 10.8 H Absolute Nucleated RBC 0.000 Nucleated RBC % (auto) 0.0 Anion Gap 13 Estim Creat Clear Calc 36.9 Estimated GFR 29 POC Glucose Random Glucose 208 H Lactic Acid 1.9 Calcium 8.6 D Magnesium 1.8 Total Bilirubin 1.6 H Direct Bilirubin 1.1 H AST 31 ALT 34 Alkaline Phosphatase 245 H B-Natriuretic Peptide 140 H Total Protein 6.4 L Albumin 3.5 Lipase 16 Procalcitonin 2.37 Urine Color Dark Yellow Urine Appearance Clear Urine pH 5.5 Ur Specific [place] 1.015 Urine Protein Negative Urine Glucose (UA) >=1000 H Urine Ketones Negative Urine Blood Small (1+) H Urine Nitrite Negative Ur Leukocyte Esterase Small (1+) H Urine RBC 3-5 H Urine WBC 6-10 H Ur Squamous Epith Cells 0-2 Other Crystals Present Urine Bacteria 1+ Hyaline Casts 0-2 Influenza Type A (PCR) NEGATIVE Influenza Type B (PCR) NEGATIVE RSV RNA Qual (PCR) NEGATIVE SARS-CoV-2 RNA (RT-PCR) NEGATIVE 03/27/23 03/27/23 03/27/23 06:13 07:35 11:09 MCV 98.4 H MCH 31.4 MCHC 31.9 RDW 14.9 Plt Count 115 L MPV 11.1 Immature Gran % (Auto) Neut % (Auto) Lymph % (Auto) [place] % (Auto) Eos % (Auto) Baso % (Auto) Lymph # (Auto) [place] # (Auto) Eos # (Auto) Baso # (Auto) Abs Immat Gran (auto) Absolute Neuts (auto) Absolute Nucleated RBC 0.000 Nucleated RBC % (auto) 0.0 Anion Gap 13 Estim Creat Clear Calc 50.8 Estimated GFR 42 POC Glucose 95 128 H Random Glucose 94 Lactic Acid Calcium 8.5 Magnesium Total Bilirubin 1.0 Direct Bilirubin 0.5 AST 16 ALT 24 Alkaline Phosphatase 172 H B-Natriuretic Peptide Total Protein 6.2 L Albumin 3.3 L Lipase Procalcitonin Urine Color Urine Appearance Urine pH Ur Specific [place] Urine Protein Urine Glucose (UA) Urine Ketones Urine Blood Urine Nitrite Ur Leukocyte Esterase Urine RBC Urine WBC Ur Squamous Epith Cells Other Crystals Urine Bacteria Hyaline Casts Influenza Type A (PCR) Influenza Type B (PCR) RSV RNA Qual (PCR) SARS-CoV-2 RNA (RT-PCR) Microbiology Microbiology Results: Microbiology 03/26/23 16:20 Urine Culture - Preliminary Urine clean catch - Urine arambula top Culture in progress. Assessment and Plan (1) MARICHUY (acute kidney injury): Status: Acute (2) Enteritis: Status: Acute (3) Pneumonia: Status: Acute Plan This is a 78-year-old male with a PMH significant for?CVA, HFpEF with last echo LV EF of 55-60%, cardiomyopathy, COPD on prn home O2, cqh-vuvosws-tsjiyrkbk diabetes type 2, and chronic back pain on chronic opioids who presents to the ED with?for evaluation of generalized weakness and not feeling well. Pt will be admitted to the hospital for treatment further evaluation of MARICHUY and generalized weakness in a setting of acute pneumonia. acute respiratory failure with hypoxia due to sepsis from CAP on a background of COPD met sepsis criteria with tachycardia and leukocytosis; LA wnl; leukocytosis and tachycardia resolved, bp improved with IVF continue IV ceftriaxone and azithromycin, started 03/26/2023 Duonebs p.r.n. Continue home inhalers blood cultures pending Gastroenteritis ?enteritis on CT symptoms improving continue symptomatic treatment MARICHUY on CKD3 improved from 2.22 to 1.6 Likely secondary to dehydration from GI losses and reduced p.o. intake hold lasix and losartan Patient received IVF in the ED continue maintenance fluids Follow BMP Elevated troponins Initial troponin 36.3 with repeat flat at 38.0 Patient asymptomatic: EKG without acute ischemic changes Likely type 2 in the setting of demand ischemia thrombocytopenia acute on chronic follow CBC COPD no acute exacerbation continue home inhalers Hx of CVA Continue aspirin, Plavix HFpEF Not in acute exacerbation hold lasix due to MARICHUY Chronic back pain Patient with history of 3 back surgeries Continue home oxycodone Hx of gout Continue allopurinol Lid-xgbyjst-tonstotqs diabetes type 2 Continue Jardiance hold glipizide SSI, POCs, Diabetic diet Full Code Attending:?Dr. Tejeda DVT Prophylaxis: Lovenox Patient requires ongoing inpatient stay for MARICHUY and generalized weakness in a setting of acute pneumonia. Patient requires IV antibiotics, IVF, and close monitoring of labs and blood pressure. Quality Stroke Does the patient have a stroke diagnosis?: No VTE Prior VTE?: No VTE Risk Level:: Medical - moderate - high VTE Device Contraindication: Treatment Not Indicated VTE Drug Contraindication: N/A - Med Ordered
[2023-03-27] MEDS: cefTRIAXone sodium 1 GM in 0.9 % Sodium Chloride 50 ML IV (14:30)
[2023-03-27] MEDS: oxyCODONE HCl ER 10 MG TAB.ER.12H 20 MG PO (14:31)
[2023-03-27 16:44] LABS: Glucose, Whole Blood 109 mg/dL (60-115)
[2023-03-27] MEDS: Azithromycin 500 MG in 0.9 % Sodium Chloride 250 ML 125 MG IV (17:38)
[2023-03-27] MEDS: Enoxaparin Sodium 40 MG/0.4 ML SYRINGE SUBCUT (20:05)
[2023-03-27 20:28] LABS: Glucose, Whole Blood 105 mg/dL (60-115)
[2023-03-28] MEDS: 0.9 % Sodium Chloride 1,000 ML 100 ML IVCONT (00:41)
[2023-03-28] MEDS: Omeprazole 20 MG CAPSULE.DR PO (05:36)
[2023-03-28 05:43] LABS: Hematocrit 38.8 % (42.0-52.0); Hemoglobin 11.8 g/dl (14.0-18.0); Mean Corpuscular HGB Conc 30.4 g/dl (31.0-36.0); Mean Corpuscular Hemoglobin 30.7 pg (27.0-33.0); Mean Platelet Volume 10.6 fL (9.4-12.4); Platelet Count 129 X10*3/uL (160-400); Red Blood Count 3.84 X10*6/uL (4.60-5.80); Red Cell Distribution Width 14.9 % (11.0-16.0); White Blood Count 5.5 X10*3/uL (4.8-10.8)
[2023-03-28 05:56] LABS: Anion Gap 13 (12-20); Blood Urea Nitrogen 36 mg/dL (9-16); Calcium 8.8 mg/dL (8.4-10.2); Carbon Dioxide 24 mmol/L (22-29); Chloride 114 mmol/L (96-108); Creatinine Clr Calc Pharmacy 53.8; Estimated Glomerular Filt Rate 45; Glucose Random 94 mg/dL (60-115); Potassium 4.6 mmol/L (3.3-5.1); Sodium 146 mmol/L (135-145)
[2023-03-28 07:16] LABS: Glucose, Whole Blood 96 mg/dL (60-115)
[2023-03-28 07:47] VITALS: BP 136/63; PULSE 88; RESP 18; TEMP 36.9; O2SAT 95
[2023-03-28] MEDS: Fluticasone/Umeclidinium/Vilanterol 100/62.5/25 BLST.W.DEV 1 PUFF INHALE (08:22)
[2023-03-28 08:24] VITALS: RESP 18; O2SAT 96
[2023-03-28] MEDS: carisoprodoL 350 MG TABLET 700 MG PO ×3 (08:52→20:07)
[2023-03-28] MEDS: Empagliflozin 10 MG TABLET PO (08:52)
[2023-03-28] MEDS: allopurinoL 100 MG TABLET 200 MG PO (08:52)
[2023-03-28] MEDS: LORazepam 1 MG TABLET PO ×3 (08:52→20:07)
[2023-03-28] MEDS: oxyCODONE HCl ER 10 MG TAB.ER.12H 30 MG PO ×2 (08:52→20:16)
[2023-03-28] MEDS: 0.9 % Sodium Chloride Flush 3 ML SYRINGE IVFLUSH (08:52)
[2023-03-28] MEDS: Aspirin Enteric Coated 81 MG TABLET.DR PO (08:52)
[2023-03-28] MEDS: Atorvastatin Calcium 20 MG TABLET PO (08:52)
[2023-03-28] MEDS: carvediloL 6.25 MG TABLET PO ×2 (08:52→20:07)
[2023-03-28] MEDS: Clopidogrel Bisulfate 75 MG TABLET PO (08:52)
[2023-03-28 11:01] VITALS: O2SAT 92
[2023-03-28 11:16] LABS: Glucose, Whole Blood 119 mg/dL (60-115)
[2023-03-28] MEDS: Lactated Ringers 1,000 ML 80 ML IVCONT (11:25)
[2023-03-28] MEDS: oxyCODONE HCl ER 10 MG TAB.ER.12H 20 MG PO (14:14)
[2023-03-28] MEDS: cefTRIAXone sodium 1 GM in 0.9 % Sodium Chloride 50 ML IV (14:14)
--- NOTE | 2023-03-28 14:33 | P.PNIM_ITS ---
Subjective Subjective Date of Service: 03/28/23 Interval History: seen and examined this morning follow up for pneumonia no more vomiting, abdominal pain improving, no diarrhea breathing better, ongoing dry cough Review of Systems Review of Systems: Yes all other systems are reviewed and are negative Constitutional Constitutional: Denies chills and Denies fever(s) Cardiovascular Cardiovascular: Denies chest pain and Denies palpitations Respiratory Respiratory: Reports cough Endocrine Endocrine: Denies palpitations Physical Exam 2 Vital Signs: Vital Signs: Last Vital Signs Temp 98.4 F 03/28/23 07:47 Pulse 88 03/28/23 07:47 Resp 18 03/28/23 08:24 BP 136/63 03/28/23 07:47 Pulse Ox 92 03/28/23 11:01 O2 Del Method Nasal Cannula 03/28/23 11:01 O2 Flow Rate 1 03/28/23 11:01 Oxygen Flow Rate 4 03/26/23 14:18 BMI result Body Mass Index 34.1 Const: General: cooperative, comfortable, alert and awake Nutritional Appearance: overweight Orientation/consciousness: patient oriented x3 Resp: Other: no wheeze, crackles right base Effort & Inspection: normal respiratory effort, no respiratory distress and no use of accessory muscles Cardio: Rate: regular rate GI: Inspection: No distended Palpation (GI): Soft to palpation and nontender Neuro: General: patient oriented x3, moves all extremities and CN's II-XI intact bilaterally Extrem: General: Yes no pedal edema Objective Data Active Medications Acetaminophen (Acetaminophen 325 Mg Tablet) 650 mg PO Q6H PRN PRN Reason: Pain, Mild (Pain Scale 1-3) Albuterol Sulfate (Albuterol Sulfate 90 Mcg 8 Gm Inhaler) 2 puff INHALE Q4H PRN PRN Reason: Shortness Of Breath Albuterol/Ipratropium (Albuterol/Iprat 2.5/0.5mg 3 Ml Ampul.Neb) 3 ml INHALE RQ4H WHILE AWAKE PRN PRN Reason: Shortness of Breath Allopurinol (Allopurinol 100 Mg Tablet) 200 mg PO DAILY [facility] Last Admin: 03/28/23 08:52 Dose: 200 mg Documented By: LIANNE Aspirin (Aspirin Enteric Coated 81 Mg Tablet.) 81 mg PO DAILY [facility] Last Admin: 03/28/23 08:52 Dose: 81 mg Documented By: LIANNE Atorvastatin Calcium (Atorvastatin Calcium 20 Mg Tablet) 20 mg PO DAILY [facility] Last Admin: 03/28/23 08:52 Dose: 20 mg Documented By: LIANNE Benzonatate (Benzonatate 100 Mg Capsule) 100 mg PO TID PRN PRN Reason: Cough Carisoprodol (Carisoprodol 350 Mg Tablet) 700 mg PO TID [facility] Last Admin: 03/28/23 14:14 Dose: 700 mg Documented By: LIANNE Carvedilol (Carvedilol 6.25 Mg Tablet) 6.25 mg PO BID [facility]; Protocol Last Admin: 03/28/23 08:52 Dose: 6.25 mg Documented By: LIANNE Clopidogrel Bisulfate (Clopidogrel Bisulfate 75 Mg Tablet) 75 mg PO DAILY [facility] Last Admin: 03/28/23 08:52 Dose: 75 mg Documented By: LIANNE Dextrose (Dextrose 50 % 25 Gm/50 Ml Syringe) 25 gm IVPUSH Q15M PRN; Protocol PRN Reason: per Hypoglycemia Standing Ord. Docusate Sodium (Docusate Sodium 100 Mg Capsule) 100 mg PO DAILY PRN PRN Reason: Constipation Empagliflozin (Empagliflozin 10 Mg Tablet) 10 mg PO DAILY [facility] Last Admin: 03/28/23 08:52 Dose: 10 mg Documented By: LIANNE Enoxaparin Sodium (Enoxaparin Sodium 40 Mg/0.4 Ml Syringe) 40 mg SUBCUT Q24H [facility] Last Admin: 03/27/23 20:05 Dose: 40 mg Documented By: ALLEN Fluticasone/Umeclidinium/Vilanterol (Fluticasone/Umeclidinium/Vilanterol 100/62.5/25 Blst.W.Dev) 1 puff INHALE RDAILY [facility] Last Admin: 03/28/23 08:22 Dose: 1 puff Documented By: ARMINDA Glucose (Glucose Gel 15 Gm Gel..Gram.) 15 gm PO Q15M PRN; Protocol PRN Reason: per Hypoglycemia Standing Ord. Ceftriaxone Sodium 1 gm/ (Sodium Chloride) 50 mls @ 100 mls/hr IV Q24H [facility] Last Admin: 03/28/23 14:14 Dose: 100 mls/hr Documented By: LIANNE Azithromycin 500 mg/ Sodium (Chloride) 250 mls @ 125 mls/hr IV Q24H [facility] Last Infusion: 03/27/23 19:43 Dose: Infused Documented By: ALLEN Lactated Ringer's (Lr) 1,000 mls @ 80 mls/hr IVCONT .[id number] [facility] Last Admin: 03/28/23 11:25 Dose: 80 mls/hr Documented By: LIANNE Insulin Human Lispro (Insulin Lispro 100 Unit/Ml 3 Ml Vial) 0 unit SUBCUT QIDACHS [facility]; Protocol Last Admin: 03/28/23 11:21 Dose: Not Given Documented By: LIANNE Non-Admin Reason: No Insulin Coverage Lorazepam (Lorazepam 1 Mg Tablet) 1 mg PO TID [facility] Last Admin: 03/28/23 14:14 Dose: 1 mg Documented By: LIANNE Melatonin (Melatonin 3 Mg Tablet) 6 mg PO BEDTIME PRN PRN Reason: Insomnia Omeprazole (Omeprazole 20 Mg Capsule.Dr) 20 mg PO DAILY@0630 [facility] Last Admin: 03/28/23 05:36 Dose: 20 mg Documented By: KAILASH Ondansetron HCl (Ondansetron Hcl 4 Mg/2 Ml Vial) 4 mg IVPUSH Q8H PRN PRN Reason: Nausea and Vomiting Oxycodone HCl (Oxycodone Hcl Er 10 Mg Tab.Er.12h) 20 mg PO DAILY@1500 [facility] Last Admin: 03/28/23 14:14 Dose: 20 mg Documented By: LIANNE Oxycodone HCl (Oxycodone Hcl Er 10 Mg Tab.Er.12h) 30 mg PO BID [facility] Last Admin: 03/28/23 08:52 Dose: 30 mg Documented By: LIANNE Sodium Chloride (0.9 % Sodium Chloride Flush 3 Ml Syringe) 3 ml IVFLUSH QSHIFT [facility] Last Admin: 03/28/23 08:52 Dose: 3 ml Documented By: LIANNE Labs 03/28/23 05:31 03/28/23 05:31 Labs: Laboratory Results - last 24 hr 03/27/23 03/27/23 03/28/23 16:36 19:37 05:31 MCV 101.0 H MCH 30.7 MCHC 30.4 L RDW 14.9 Plt Count 129 L MPV 10.6 Absolute Nucleated RBC 0.000 Nucleated RBC % (auto) 0.0 Anion Gap 13 Estim Creat Clear Calc 53.8 Estimated GFR 45 POC Glucose 109 105 Random Glucose 94 Calcium 8.8 03/28/23 03/28/23 07:04 11:06 MCV MCH MCHC RDW Plt Count MPV Absolute Nucleated RBC Nucleated RBC % (auto) Anion Gap Estim Creat Clear Calc Estimated GFR POC Glucose 96 119 H Random Glucose Calcium Microbiology Microbiology Results: Microbiology 03/26/23 16:20 Urine Culture - Preliminary Urine clean catch - Urine arambula top Strep agalactiae (Grp B) Staphylococcus species 03/26/23 15:03 Blood Culture - Preliminary Blood - Venous No growth after 24 hours. 03/26/23 14:27 Blood Culture - Preliminary Blood - Venous No growth after 24 hours. Assessment and Plan (1) MARICHUY (acute kidney injury): Status: Acute (2) Pneumonia: Status: Acute Plan This is a 78-year-old male with a PMH significant for?CVA, HFpEF with last echo LV EF of 55-60%, cardiomyopathy, COPD on prn home O2, llf-ypkyynv-spkqrltic diabetes type 2, and chronic back pain on chronic opioids who presents to the ED with?for evaluation of generalized weakness and not feeling well. Pt will be admitted to the hospital for treatment further evaluation of MARICHUY and generalized weakness in a setting of acute pneumonia. acute respiratory failure with hypoxia due to sepsis from CAP on a background of COPD met sepsis criteria with tachycardia and leukocytosis; LA wnl; leukocytosis and tachycardia resolved, bp improved with IVF continue IV ceftriaxone and azithromycin, started 03/26/2023 Timote[employer] p.r.n. Continue home inhalers blood cultures negative to date uses prn o2 at baseline, wean oxygen as tolerated Gastroenteritis ?enteritis on CT symptoms resolved continue symptomatic treatment prn MARICHUY on CKD3 lots of fluctuation in creatinine upon review of labs, improving, does not appears to be quite back to baseline Likely secondary to dehydration from GI losses and reduced p.o. intake hold lasix and losartan will change from NS to LR due to sodium 146 Follow BMP +urine culture no urinary symptoms urine culture growing grp b strep and staph sp 10-50 cfu - likely contamination on abx for pneumonia Elevated troponins Initial troponin 36.3 with repeat flat at 38.0 Patient asymptomatic: EKG without acute ischemic changes Likely type 2 in the setting of demand ischemia thrombocytopenia acute on chronic platelets stable COPD no acute exacerbation continue home inhalers Hx of CVA Continue aspirin, Plavix, statin HFpEF Not in acute exacerbation hold lasix due to MARICHUY Chronic back pain Patient with history of 3 back surgeries Continue home oxycodone Hx of gout Continue allopurinol Nys-sbwkhey-pmkiztubz diabetes type 2 Continue Jardiance hold glipizide SSI, POCs, Diabetic diet Full Code Attending:?Dr. Tejeda DVT Prophylaxis: Lovenox Patient requires ongoing inpatient stay for MARICHUY and generalized weakness in a setting of acute pneumonia. Patient requires IV antibiotics, IVF, and close monitoring of labs and blood pressure. Quality Stroke Does the patient have a stroke diagnosis?: No VTE Prior VTE?: No VTE Risk Level:: Medical - moderate - high VTE Device Contraindication: Treatment Not Indicated VTE Drug Contraindication: N/A - Med Ordered
--- NOTE | 2023-03-28 14:44 | MHC.CM.PN ---
PT REPORTS HE LIVES WITH HIS , DAUGHTER, SON, SONS , AND 3 GRANDSONS HE SAYS HE DID HAVE [employer] BUT SOMETHING WAS MISFILED, AND NOW HE IS WAITING FOR THEM TO RESTART HE SAYS IN THE MEANTIME, HIS FAMILY ASSISTS PRN PT STATES HE HAS HOME O2, A CPAP AND USUALLY USES A CANE TO AMBULATE PT STATES HE HAS A HCP AT HOME, COPY REQUESTED PCP: OSMAN HINTON IMM DELIVERED DCP: HOME WITH RESUMPTION OF FAMILY SUPPORT FAMILY TO TRANSPORT
[2023-03-28 15:22] VITALS: BP 123/57; PULSE 83; RESP 18; TEMP 37.1; O2SAT 91
[2023-03-28 16:12] LABS: Glucose, Whole Blood 120 mg/dL (60-115)
[2023-03-28] MEDS: Azithromycin 500 MG in 0.9 % Sodium Chloride 250 ML 125 MG IV (17:54)
[2023-03-28] MEDS: Enoxaparin Sodium 40 MG/0.4 ML SYRINGE SUBCUT (20:06)
[2023-03-28 20:08] LABS: Glucose, Whole Blood 122 mg/dL (60-115)
[2023-03-28 20:10] VITALS: BP 146/80; PULSE 80; TEMP 36.7; O2SAT 93
[2023-03-29] VITALS: BP 166/77; PULSE 87; RESP 18; TEMP 36.8; O2SAT 92
[2023-03-29] MEDS: Lactated Ringers 1,000 ML 80 ML IVCONT (04:39)
--- NOTE | 2023-03-29 05:01 | PC.NURSE ---
Patient on 1L O2. Ambulating to bathroom with supervision only. Steady, but does get mild short of breath with ambulation. Patient states he does have O2 setup at home but usually doesnt need it or use it. Patient states he feels well enough and is looking forward to going home.
[2023-03-29] MEDS: Omeprazole 20 MG CAPSULE.DR PO (05:46)
[2023-03-29 07:04] LABS: Anion Gap 13 (12-20); Blood Urea Nitrogen 24 mg/dL (9-16); Calcium 8.9 mg/dL (8.4-10.2); Carbon Dioxide 23 mmol/L (22-29); Chloride 111 mmol/L (96-108); Creatinine Clr Calc Pharmacy 76.5; Estimated Glomerular Filt Rate > 60; Glucose Random 109 mg/dL (60-115); Potassium 3.9 mmol/L (3.3-5.1); Sodium 143 mmol/L (135-145)
[2023-03-29 07:27] VITALS: BP 180/94; PULSE 90; RESP 24; TEMP 36.9; O2SAT 93
[2023-03-29] MEDS: Fluticasone/Umeclidinium/Vilanterol 100/62.5/25 BLST.W.DEV 1 PUFF INHALE (07:49)
[2023-03-29 07:51] VITALS: PULSE 83; RESP 20; O2SAT 95
[2023-03-29 07:58] LABS: Glucose, Whole Blood 130 mg/dL (60-115)
[2023-03-29] MEDS: 0.9 % Sodium Chloride Flush 3 ML SYRINGE IVFLUSH (09:15)
[2023-03-29] MEDS: carisoprodoL 350 MG TABLET 700 MG PO (09:16)
[2023-03-29] MEDS: Empagliflozin 10 MG TABLET PO (09:17)
[2023-03-29] MEDS: Aspirin Enteric Coated 81 MG TABLET.DR PO (09:17)
[2023-03-29] MEDS: LORazepam 1 MG TABLET PO (09:17)
[2023-03-29] MEDS: carvediloL 6.25 MG TABLET PO (09:17)
[2023-03-29] MEDS: allopurinoL 100 MG TABLET 200 MG PO (09:17)
[2023-03-29] MEDS: Atorvastatin Calcium 20 MG TABLET PO (09:17)
[2023-03-29] MEDS: oxyCODONE HCl ER 10 MG TAB.ER.12H 30 MG PO (09:17)
[2023-03-29] MEDS: Clopidogrel Bisulfate 75 MG TABLET PO (09:17)
--- NOTE | 2023-03-29 10:21 | MHC.CM.PN ---
EMR REVIEWED. PER MD ROUNDS PATIENT MEDICALLY CLEARED FOR DC, HOME SELF CARE. FAMILY TO PROVIDE TRANSPORTATION AT 1PM. , RN, PATIENT AWARE. IMM WAS DELIVERED ON 03/28.
--- NOTE | 2023-03-29 10:55 | P.DS_ITS ---
DS: Providers Provider Date of Service: 03/29/23 Date of admission: 03/26/23 20:51 Primary care physician: Mj Bonilla MD DS: Diagnosis Discharge Diagnosis (1) MARICHUY (acute kidney injury): Status: Acute (2) Pneumonia: Status: Acute DS: Summary Hospital Course Hospital Course: History and physical as per admitting provider. Pt is a 78-year-old male with a PMH significant for?CVA, HFpEF with last echo LV EF of 55-60%, cardiomyopathy, COPD on prn home O2, [id number] diabetes type 2, and chronic back pain on chronic opioids who presents to the ED with?for evaluation of generalized weakness and not feeling well. Patient states that 3 days prior he became ill with nausea, a little vomiting, and lower abdominal pain. Reports fever and chills with fever measured at home as high as 103 degrees. No diarrhea. Nausea and vomiting did not return, and abdominal pain improved over the next 2 days. However, patient states when he awoke today he felt very fatigued and weak, was unable to ambulate. Patient states that he has not been eating or drinking much of anything the past 3 days. Has chronic shortness of breath and cough which he states is around baseline. Patient is on p.r.n. home O2 and reports not having to use his oxygen these past few days. Patient presents today due to how fatigued and weak he feels. Denies chest pain/pressure, palpitations. In the ED pt with elevated temperature of 100.5 deg sandy, tachycardic up to 104 initially hypotensive as low as 80/34, satting at 93% on 4 L NC. Labs were significant for leukocytosis of 12.6, H&H 13.4/41.3, BUN 55, creatinine 2.22, bilirubin 1.6, alk-phos 245, initial troponin 36.3 with repeat flat at 38.0, and BNP slightly elevated at 140. UA likely negative for UTI. Patient tested negative for influenza type a and B, RSV, COVID. CXR showed question of small bibasilar infiltrates with right greater than left. CT of abdomen pelvis found abnormal small bowel in the central lower abdomen suggestive of enteritis with trace ascites and diverticulosis but no evidence of diverticulitis. Also demonstrated probable right lower lobe pneumonia. EKG demonstrated showed normal sinus rhythm with no evidence of ST elevations or depressions. Pt was treated with IVF, ondansetron, acetaminophen, ceftriaxone, azithromycin, and albumin. Pt will be admitted to the hospital for treatment further evaluation of MARICHUY and generalized weakness in a setting of acute pneumonia. 78-year-old man treated for acute community-acquired pneumonia with MARICHUY on CKD stage 3. Patient was treated with IV antibiotics Rocephin and azithromycin with oxygen treatment. Patient is chronically on oxygen at home as needed. Patient feeling significantly better and will be discharged on 4 more days of oral antibiotics and may continue oxygen at home as needed. In terms of his acute kidney injury, this resolved with IV fluids, likely secondary to dehydration and GI losses from dehydration, his Lasix and losartan were held. He may resume these medications at this point as the acute kidney injury has resolved and patient is back to baseline. His initial troponin was also elevated likely demand from dehydration, no ischemic changes on EKG. Urine culture was positive without urinary symptoms, grew group B strep and Staph likely contamination. He also had a likely gastroenteritis which also resolved with IV fluids. At this point patient is safe for discharge home and can follow up with his primary care provider as needed. COPD. No exacerbation continue home medications History of CVA. Continue aspirin statin and Plavix Heart failure preserved ejection fraction. No exacerbation during hospitalization. Continue Lasix History of chronic back pain. Continue home oxycodone History of gout. Continue allopurinol Diabetes mellitus type 2. Continue home medications Time Attestation Discharge coordination time: Greater than 30 minutes Quality: Safe Use of Opioids Does Pt have an Active Cancer Diagnosis on the Problem List?: No Quality: Stroke Does the patient have a stroke diagnosis?: No Physical Exam Vital Signs: Vital Signs: Last Vital Signs Temp 98.4 F 03/29/23 07:27 Pulse 83 03/29/23 07:51 Resp 20 03/29/23 07:51 BP 180/94 H 03/29/23 07:27 Pulse Ox 93 03/29/23 07:27 O2 Del Method Nasal Cannula 03/29/23 07:27 O2 Flow Rate 1 03/29/23 07:27 Oxygen Flow Rate 4 03/26/23 14:18 BMI result Body Mass Index 34.1 Appearing in no acute distress head is normocephalic atraumatic eyes pupils are PERRLA sclera is anicteric mouth throat mucous membranes are intact and moist neck is supple no lymphadenopathy, no JVD noted lung sounds are clear to auscultation heart regular rate rhythm, clear S1, S2 positive bowel sounds, abdomen is soft, nontender neuro patient is alert x3, no focal deficits DS: Data Data Completed and Pending Completed studies during hospitalization [Text1]: Procedures Dilation of Right Common Carotid Artery, Open Approach (12/14/22) Extirpation of Matter from Right Common Carotid Artery, Open Approach (12/14/22) Introduction of Other Thrombolytic into Peripheral Vein, Percutaneous Approach (11/08/22) Introduction of Vasopressor into Peripheral Vein, Percutaneous Approach (12/14/22) Supplement Right Common Carotid Artery with Synthetic Substitute, Open Approach (12/14/22) Labs on day of discharge: Laboratory Results - last 24 hr 03/28/23 03/28/23 03/28/23 11:06 16:03 20:05 Hold Purple Top Sodium Potassium Chloride Carbon Dioxide Anion Gap BUN Creatinine Estim Creat Clear Calc Estimated GFR POC Glucose 119 H 120 H 122 H Random Glucose Calcium 03/29/23 03/29/23 05:46 07:29 Hold Purple Top SEE NOTE Sodium 143 Potassium 3.9 Chloride 111 H Carbon Dioxide 23 Anion Gap 13 BUN 24 H Creatinine 1.07 Estim Creat Clear Calc 76.5 Estimated GFR > 60 POC Glucose 130 H Random Glucose 109 Calcium 8.9 Preliminary micro results at discharge 03/26/23 15:03 Blood Culture - Preliminary Blood - Venous No growth after 48 hours. 03/26/23 14:27 Blood Culture - Preliminary Blood - Venous No growth after 48 hours. Discharge Plan Discharge Anticipated Discharge Date/Time: 03/29/23 10:42 Patient Disposition: Home Health Service Discharge Diagnosis: Acute respiratory failure with hypoxia Community-acquired pneumonia Gastroenteritis MARICHUY on CKD stage 3 Referrals: Mj Bonilla MD [Primary Care Provider] - 1 Week Discharge Medications: New cefuroxime axetil 500 mg tablet 500 mg PO BID Qty: 8 0RF azithromycin 500 mg tablet 500 mg PO DAILY 4 Days Qty: 4 0RF Continued Jardiance 10 mg tablet 10 mg PO DAILY Qty: 30 8RF carisoprodol 350 mg tablet 2 tab PO TID allopurinol 100 mg tablet 2 tab PO DAILY glipizide 2.5 mg tablet extended release 24hr 1 tab PO BID omeprazole 20 mg capsule,delayed release(DR/EC) 1 cap PO DAILY@0630 albuterol sulfate [Ventolin HFA] 90 mcg/actuation HFA aerosol inhaler 2 puff inhalation Q4H PRN (Reason: Shortness Of Breath) oxycodone [OxyContin] 20 mg tablet,oral only,ext.rel.12 hr 20 mg PO DAILY@1500 carvedilol 6.25 mg tablet 6.25 mg PO BID omega 7-nzw-vbi-fish oil [Fish Oil] 1,000 mg (120 mg-180 mg) Capsule 1 cap PO BID clopidogrel 75 mg tablet 75 mg PO DAILY simvastatin 40 mg tablet 40 mg PO DAILY losartan 100 mg tablet 50 mg PO DAILY aspirin 81 mg Tablet,Delayed Release (Dr/Ec) 81 mg PO DAILY Qty: 30 0RF lorazepam 1 mg tablet 1 mg PO TID Qty: 4 0RF oxycodone [OxyContin] 30 mg tablet,oral only,ext.rel.12 hr 30 mg PO BID Qty: 4 0RF Trelegy Ellipta 100-62.5-25 mcg blister with device 1 inh inhalation DAILY Qty: 60 3RF furosemide 20 mg tablet 20 mg PO DAILY Discharge Orders: Discharge Order (Routine); Ordered 03/29/23 Ordered By: Mindy Bourne Diet: Advance to usual diet Activity on Discharge: As tolerated Stand Alone Forms: Patient Portal Discharge page Care Plan Goals: complete resolution of symptoms Health Concerns: Acute respiratory failure with hypoxia Community-acquired pneumonia Gastroenteritis MARICHUY on CKD stage 3 Plan of Treatment: follow-up with primary care provider as needed Take all medications as prescribed Assessment: see discharge summary
== END 2023-03-29 11:31 | disposition home health service (06) | DRG 194 ==
LOC: HO.ED 18:26 → HO.EDOVER 21:09 → HO.S3 03-27 00:42
PROVIDERS: Physician Assistant Medical; Admitting Provider Student in an Organized Health Care Education/Training Program; Emergency Provider Emergency Medicine; PCP Internal Medicine; Visit Provider Nurse Practitioner Acute Care
DX: J18.9 Pneumonia, unspecified organism (principal); I50.32 Chronic diastolic (congestive) heart failure; J44.0 Chronic obstructive pulmonary disease with (acute) lower respiratory infection; N17.9 Acute kidney failure, unspecified; N18.30 Chronic kidney disease, stage 3 unspecified; D69.6 Thrombocytopenia, unspecified; M54.9 Dorsalgia, unspecified; G89.29 Other chronic pain; E86.0 Dehydration; I95.9 Hypotension, unspecified; E11.22 Type 2 diabetes mellitus with diabetic chronic kidney disease; K52.9 Noninfective gastroenteritis and colitis, unspecified; Z20.822 Contact with and (suspected) exposure to COVID-19; Z86.73 Personal history of transient ischemic attack (TIA), and cerebral infarction without residual deficits; Z99.81 Dependence on supplemental oxygen; Z87.891 Personal history of nicotine dependence; Z79.02 Long term (current) use of antithrombotics/antiplatelets; Z79.82 Long term (current) use of aspirin; Z79.84 Long term (current) use of oral hypoglycemic drugs; Z79.899 Other long term (current) drug therapy
CPT/HCPCS: 0241U; 36415; 71045; 74176; 80048; 80076; 81001; 82947; 83605; 83690; 83735; 83880; 84145; 84484; 85025; 85027; 87040; 87086; 87088; 87147; 93005; 94640; 99285; J0456; J0696; J1650; J2405; J7120; P9047

== ENCOUNTER → 2023-03-26 14:18 | Outpatient (BNV) | payer MEDICARE, MEDICAID, SELFPAY | PROVIDERS: Emergency Provider Emergency Medicine; PCP Internal Medicine; Visit Provider Internal Medicine Cardiovascular Disease | DX: I10 Essential (primary) hypertension (principal) | CPT/HCPCS: 93010 ==

== ENCOUNTER → 2023-03-26 20:51 | Outpatient (BNV) | payer MEDICARE, MEDICAID, SELFPAY | PROVIDERS: Admitting Provider Student in an Organized Health Care Education/Training Program; Emergency Provider Emergency Medicine; PCP Internal Medicine; Visit Provider Physician Assistant Medical | DX: N17.9 Acute kidney failure, unspecified (principal); J18.9 Pneumonia, unspecified organism | CPT/HCPCS: 99223; 99232; 99239 ==

== ENCOUNTER 2023-04-06 12:25 | Outpatient (REF) | payer MEDICARE, MEDICAID, OTHER, SELFPAY ==
--- NOTE | ~2023-04-06 | XR_ITS ---
EXAMINATION: XR CHEST CLINICAL INFORMATION: Shortness of breath. Concern for pneumonia. COMPARISON: 12/25/2022. TECHNIQUE: 2 views of the chest were obtained. FINDINGS: The cardiomediastinal silhouette is within normal limits and stable. The lungs are hyperinflated. There is no focal lung consolidation or pleural effusion. The bony structures and soft tissues are unremarkable XR/XR chest 2V IMPRESSION: Hyperinflation suggests emphysema/COPD. There is no focal lung consolidation or evidence for significant pleural effusion.
== END 2023-04-06 12:26 | disposition home or self-care (01) ==
LOC: HO.HMGCX 12:25
PROVIDERS: PCP Internal Medicine; Visit Provider Internal Medicine
DX: R06.02 Shortness of breath (principal)
CPT/HCPCS: 71046

== ENCOUNTER 2023-04-30 09:48 | Outpatient (REF) | payer MEDICARE, MEDICAID, SELFPAY | END 2023-04-30 09:49 | disposition home or self-care (01) | LOC: HO.LAB 09:48 | PROVIDERS: Visit Provider Internal Medicine Hypertension Specialist | DX: N18.30 Chronic kidney disease, stage 3 unspecified (principal) | CPT/HCPCS: 36415; 80051; 82310; 82565; 82570; 84156; 84520; 85027 ==

== ENCOUNTER 2023-05-04 10:39 | Outpatient (AMB) | payer MEDICARE, SELFPAY ==
--- NOTE | 2023-05-04 11:43 | HO.NEPHOV_ITS ---
HPI HPI Comments History of Present Illness Details 78 yr old man with IgA nephropathy by tammy kiran , treated with cytoxan and currently in remission Recently admitted for CHF Cr up to 1.9 Baseline 1.5 PFSH Medical History Carotid stenosis, right TIA (transient ischemic attack) Chronic renal failure (CRF), stage 3 (moderate) LBBB (left bundle branch block) Cardiomyopathy CHF (congestive heart failure) Chronic back pain Sleep apnea Oxygen dependent Lung nodule CVA (cerebral vascular accident) Surgical History History of lithotripsy History of vasectomy History of back surgery Family History Father Cirrhosis Mother Myocardial infarction Enlarged heart Sister No problems noted. Sister No problems noted. Social History Household Members: Spouse Household Members Other:: 8 Housing: House Do you presently have visiting nurse or other home services: No (not at present, services will restart later this month.) Alcohol intake: former Year quit: 1979 Patient Tobacco Use Status: Former Tobacco user Quit Date: 1984 Tobacco use type: Cigarette Years Smoked: ~20 e-Cigarette/Vaping Use: Never Used Advance Directives Date on File: 03/27/23 service: Yes Current occupational status: retired Assessment & Plan Assessment & Plan (1) Chronic renal failure (CRF), stage 3 (moderate): Code(s): N18.30 - Chronic kidney disease, stage 3 unspecified Plan Due to IGA nephropathy super imposed MARICHUY due to dehydration in a setting of diarrhea Hold Lasix until diarrhea resolves Watch BP at home Avoid nephrotoxins/NSAIDS Recheck labs in 4 weeks Orders: Orders Blood Urea Nitrogen 4 Weeks N18.30 - Chronic kidney disease, stage 3 unspecified Calcium 4 Weeks N18.30 - Chronic kidney disease, stage 3 unspecified Creatinine 4 Weeks N18.30 - Chronic kidney disease, stage 3 unspecified Electrolytes 4 Weeks N18.30 - Chronic kidney disease, stage 3 unspecified Blood Urea Nitrogen 1 Month N18.30 - Chronic kidney disease, stage 3 unspecified Creatinine 1 Month N18.30 - Chronic kidney disease, stage 3 unspecified Coding Level of Care Code Tele Est Pt Level 2 (43003) Diagnoses Chronic renal failure (CRF), stage 3 (moderate) N18.30 Time Spent (min) 10 Results Reviewed Nephrology Results: Hgb 14.2 g/dl (14.0-18.0) 04/30/23 WBC 6.8 X10*3/uL (4.8-10.8) 04/30/23 Plt Count 167 X10*3/uL (160-400) 04/30/23 Sodium 139 mmol/L (135-145) 04/30/23 Potassium 4.7 mmol/L (3.3-5.1) 04/30/23 Chloride 99 mmol/L (96-108) 04/30/23 Carbon Dioxide 30 mmol/L (22-29) H 04/30/23 BUN 36 mg/dL (9-16) H 04/30/23 Creatinine 1.93 mg/dL (0.5-1.4) H 04/30/23 Calcium 9.4 mg/dL (8.4-10.2) 04/30/23 Urine Protein Negative mg/dL (Neg-Trace) 03/26/23 Urine Creatinine 71.19 mg/dL 04/30/23
== END 2023-05-04 13:05 | disposition home or self-care (01) ==
PROVIDERS: PCP Internal Medicine; Visit Provider Internal Medicine Hypertension Specialist
DX: N18.30 Chronic kidney disease, stage 3 unspecified (principal)
CPT/HCPCS: 99441

== ENCOUNTER → 2023-05-04 10:39 | Outpatient (BNVA) | payer MEDICARE, OTHER, SELFPAY | PROVIDERS: PCP Internal Medicine; Visit Provider Internal Medicine Hypertension Specialist ==

== ENCOUNTER 2023-07-02 08:58 | Outpatient (REF) | payer MEDICARE, SELFPAY ==
[2023-07-02 11:24] LABS: MANUAL DIFF FLAG NO
[2023-07-02 11:29] LABS: Basophils Absolute Auto 0.1 X10*3/uL (0.0-0.2); Basophils Percent Auto 0.7 % (0-2); Eosinophils Absolute Auto 1.4 X10*3/uL (0.0-0.4); Hematocrit 46.5 % (42.0-52.0); Hemoglobin 15.1 g/dl (14.0-18.0); Imm Gran Abs Auto 0.04 X10*3/uL (0.00-0.03); Imm Gran Pct Auto 0.6 % (0.0-0.4); Lymphocytes Absolute Auto 1.5 X10*3/uL (1.2-4.9); Lymphocytes Percent Auto 20.5 % (20-40); Mean Corpuscular HGB Conc 32.5 g/dl (31.0-36.0); Mean Corpuscular Hemoglobin 31.9 pg (27.0-33.0); Mean Corpuscular Volume 98.1 fL (80.0-98.0); Mean Platelet Volume 10.7 fL (9.4-12.4); Monocytes Absolute Auto 0.7 X10*3/uL (0.1-1.2); Monocytes Percent Auto 9.4 % (2-11); Neutrophils Absolute Auto 3.5 x10*3/uL (2.0-8.3); Neutrophils Percent Auto 49.8 % (45-73); Platelet Count 174 X10*3/uL (160-400); Red Blood Count 4.74 X10*6/uL (4.60-5.80); Red Cell Distribution Width 13.8 % (11.0-16.0); White Blood Count 7.1 X10*3/uL (4.8-10.8)
[2023-07-02 11:55] LABS: Anion Gap 10 (12-20); Blood Urea Nitrogen 34 mg/dL (9-16); Carbon Dioxide 29 mmol/L (22-29); Chloride 104 mmol/L (96-108); Estimated Glomerular Filt Rate 40; Potassium 4.4 mmol/L (3.3-5.1); Sodium 139 mmol/L (135-145)
[2023-07-02 11:57] LABS: Anion Gap 12 (12-20); Blood Urea Nitrogen 33 mg/dL (9-16); Carbon Dioxide 27 mmol/L (22-29); Chloride 105 mmol/L (96-108); Estimated Glomerular Filt Rate 41; Glucose Random 138 mg/dL (60-115); Potassium 4.2 mmol/L (3.3-5.1); Sodium 140 mmol/L (135-145)
== END 2023-07-02 08:59 | disposition home or self-care (01) ==
LOC: HO.HMGCLDS 08:58
PROVIDERS: PCP Internal Medicine; Visit Provider Internal Medicine Hypertension Specialist
DX: N18.30 Chronic kidney disease, stage 3 unspecified (principal)
CPT/HCPCS: 36415; 80048; 80051; 82310; 82565; 84520; 85025

== ENCOUNTER 2023-07-06 12:03 | Outpatient (AMB) | payer MEDICARE, MEDICAID, SELFPAY ==
[2023-07-06 12:09] VITALS: BP 118/70
--- NOTE | 2023-07-06 12:09 | HO.NEPHOV_ITS ---
HPI HPI Comments History of Present Illness Details 78 yr old man with IgA nephropathy by tammy kiran , treated with cytoxan and currently in remission h/o CVA Undergoing rehab Has difficulty walking and hence televisit [facility] Medical History Carotid stenosis, right TIA (transient ischemic attack) Chronic renal failure (CRF), stage 3 (moderate) LBBB (left bundle branch block) Cardiomyopathy CHF (congestive heart failure) Chronic back pain Sleep apnea Oxygen dependent Lung nodule CVA (cerebral vascular accident) Surgical History History of lithotripsy History of vasectomy History of back surgery Family History Father Cirrhosis Mother Myocardial infarction Enlarged heart Sister No problems noted. Sister No problems noted. Social History Household Members: Spouse Household Members Other:: 8 Housing: House Do you presently have visiting nurse or other home services: No (not at present, services will restart later this month.) Alcohol intake: former Year quit: 1979 Patient Tobacco Use Status: Former Tobacco user Quit Date: 1984 Tobacco use type: Cigarette Years Smoked: ~20 e-Cigarette/Vaping Use: Never Used Advance Directives Date on File: 03/27/23 service: Yes Current occupational status: retired Vital Signs 07/06/23 12:09 Height 6 ft BP 118/70 Blood Pressure Location Lt brachial Position Sitting Physical Exam Vital Signs: Last Vital Signs BP 118/70 07/06/23 12:09 Assessment & Plan Assessment & Plan (1) Chronic renal failure (CRF), stage 3 (moderate): Code(s): N18.30 - Chronic kidney disease, stage 3 unspecified Plan Due to IGA nephropathy s/p super imposed MARICHUY due to dehydration in a setting of diarrhea Renal fx back to baseline Watch BP at home Avoid nephrotoxins/NSAIDS Recheck labs in 4 months Orders: Orders Complete Blood Count no Diff 4 Months N18.30 - Chronic kidney disease, stage 3 unspecified UA and rflx microscopic 4 Months N18.30 - Chronic kidney disease, stage 3 unspecified Creatinine Urine 4 Months N05.9 - Unspecified nephritic syndrome with unspecified morphologic changes, N18.30 - Chronic kidney disease, stage 3 unspecified Comprehensive Met. Panel 4 Months N18.30 - Chronic kidney disease, stage 3 unspecified, N18.9 - Chronic kidney disease, unspecified Total Protein Urine Random 4 Months N18.30 - Chronic kidney disease, stage 3 unspecified Telehealth Telehealth Location of provider rendering services: practice address Location of patient: address on file Patient Identification confirmed using: Name, : Yes Telehealth method: voice only Patient verbally consented to treatment: Yes Patient verbally consented to billing insurance company: Yes Patient informed of any privacy concerns related to visit: Yes Minutes spent on Phone/Video with Pt.: 10 Coding Level of Care Code Tele Est Pt Level 2 (01293) Diagnoses Chronic renal failure (CRF), stage 3 (moderate) N18.30 Results Reviewed Nephrology Results: Hgb 15.1 g/dl (14.0-18.0) 07/02/23 WBC 7.1 X10*3/uL (4.8-10.8) 07/02/23 Plt Count 174 X10*3/uL (160-400) 07/02/23 Sodium 140 mmol/L (135-145) 07/02/23 Potassium 4.2 mmol/L (3.3-5.1) 07/02/23 Chloride 105 mmol/L (96-108) 07/02/23 Carbon Dioxide 27 mmol/L (22-29) 07/02/23 BUN 33 mg/dL (9-16) H 07/02/23 Creatinine 1.63 mg/dL (0.5-1.4) H 07/02/23 Calcium 9.0 mg/dL (8.4-10.2) 07/02/23 Urine Protein Negative mg/dL (Neg-Trace) 03/26/23 Urine Creatinine 71.19 mg/dL 04/30/23
== END 2023-07-06 13:45 | disposition home or self-care (01) ==
PROVIDERS: PCP Internal Medicine; Visit Provider Internal Medicine Hypertension Specialist
DX: N18.30 Chronic kidney disease, stage 3 unspecified (principal)
CPT/HCPCS: 99441

== ENCOUNTER → 2023-07-06 12:03 | Outpatient (BNVA) | payer MEDICARE, OTHER, SELFPAY | PROVIDERS: PCP Internal Medicine; Visit Provider Internal Medicine Hypertension Specialist ==

== ENCOUNTER 2023-07-07 11:16 | Outpatient (AMB) | payer MEDICARE, SELFPAY ==
[2023-07-07 11:17] VITALS: BP 142/60; PULSE 100; BMI 34.6
--- NOTE | 2023-07-07 11:17 | MHC.OFFVIS ---
Intake Vital Signs 07/07/23 11:17 Height 6 ft Weight 255 lb 4.725 oz BMI 34.6 BP 142/60 H Blood Pressure Location Lt brachial Position Sitting Pulse 100 Pulse Source Pulse Oximeter Intake Visit Reasons: follow up Intake Note: pt its here for f/up/ pt states that he is doing fine. Adult Protective Caseworker Required: No Accompanied by: Spouse Allergies adhesive Allergy (Severe, Verified 07/06/23 12:10) Rash morphine [MORPHINE] Allergy (Severe, Verified 07/06/23 12:10) NAUSEA codeine [CODEINE] Allergy (Intermediate, Verified 07/06/23 12:10) RASH ibuprofen [From MOTRIN] Allergy (Unknown, Verified 07/06/23 12:10) told to avoid due to kidneys Medication List - Last Reconciled 07/07/23 by Edison Graham MD allopurinol 2 tabs PO DAILY aspirin 81 mg PO DAILY carisoprodol 2 tabs PO TID carvedilol 6.25 mg PO BID cefuroxime axetil 500 mg PO BID clopidogrel 75 mg PO DAILY dapagliflozin propanediol (Farxiga) 10 mg PO DAILY uikcrapkgql-lidkzwyqa-uesmrjgn 100-62.5-25 mcg (Trelegy Ellipta) 1 ea PO DAILY furosemide 20 mg PO DAILY glipizide ER 1 tab PO BID lorazepam 1 mg PO TID losartan 50 mg PO DAILY omega 5-ccl-bpk-fish oil 1,000 mg (120 mg-180 mg) (Fish Oil) 1 cap PO BID omeprazole 1 cap PO DAILY@0630 oxycodone ER (OxyContin) 30 mg PO BID oxycodone ER (OxyContin) 20 mg PO DAILY@1500 simvastatin 40 mg PO DAILY HPI HPI Comments History of Present Illness Details 78-year-old gentleman who was recently admitted to [facility] urine tract infection and new onset congestive heart failure. He underwent echocardiography which showed EF of 30-35%. He was started on guideline directed medical therapy. He also was noted to have left bundle-branch block. Since discharge he has been doing well. He is denying any significant shortness of breath. No orthopnea or PND. He has been taking medications regularly. Denying any significant chest discomfort. He has background of COPD. 07/07/2023: Returns for follow-up. In September 2022 was taken for cardiac catheterization which revealed noticed moderate disease in the RCA and circumflex arteries. He had EF of 30 35% at that time and it was felt that he has nonischemic cardiomyopathy. He was started on guideline directed medical therapy and repeat echocardiography showed that his ejection fraction has improved from June to October 2022. His EF was back to normal. In March 2023 got admitted to hospital with pneumonia. He is currently walking with walker and cane. He has some left leg issues and will be starting physiotherapy. He is saying that he gets short of breath easily when he is walking with the walker. Taking medications regularly otherwise. [facility] Medical History Carotid stenosis, right TIA (transient ischemic attack) Chronic renal failure (CRF), stage 3 (moderate) LBBB (left bundle branch block) Cardiomyopathy CHF (congestive heart failure) Chronic back pain Sleep apnea Oxygen dependent Lung nodule CVA (cerebral vascular accident) Surgical History History of lithotripsy History of vasectomy History of back surgery Family History Father Cirrhosis Mother Myocardial infarction Enlarged heart Sister No problems noted. Sister No problems noted. Social History Household Members: Spouse Household Members Other:: 8 Housing: House Do you presently have visiting nurse or other home services: No (not at present, services will restart later this month.) Alcohol intake: former Year quit: 1979 Patient Tobacco Use Status: Former Tobacco user Quit Date: 1984 Tobacco use type: Cigarette Years Smoked: ~20 e-Cigarette/Vaping Use: Never Used Advance Directives Date on File: 03/27/23 service: Yes Current occupational status: retired Review of Systems Const Denies chills, Denies fatigue, Denies fever(s), Denies frequent falls, Denies weakness, Denies weight gain and Denies weight loss ENT Denies dizziness Card Denies chest pain, Denies leg edema, Denies lightheadedness, Denies palpitations, Denies dyspnea and Denies dyspnea on exertion Resp Denies cough, Denies dyspnea and Denies dyspnea on exertion GI Denies hematochezia Musc Denies abnormal gait, Denies muscle weakness, Denies numbness, Denies radiating pain into limb and Denies tingling Neuro Denies abnormal gait, Denies dizziness, Denies frequent falls, Denies numbness, Denies tingling and Denies weakness Endo Denies fatigue and Denies palpitations Physical Exam Vital Signs: Last Vital Signs Pulse 100 07/07/23 11:17 BP 142/60 H 07/07/23 11:17 BMI result Body Mass Index 34.6 GENERAL APPEARANCE: in no acute distress, pleasant. NECK: no carotid bruit, no jugular venous distention. SKIN: no suspicious lesions, warm and dry. HEART: no murmurs, regular rate and rhythm. LUNGS: clear to auscultation bilaterally. ABDOMEN: soft, nontender. EXTREMITIES: no edema. PERIPHERAL PULSES: equal. NEUROLOGIC: No gross deficits, AAO X 3 Assessment & Plan Assessment & Plan (1) Cardiomyopathy: Comment: Resolved Code(s): I42.9 - Cardiomyopathy, unspecified Plan Pleasant 78 year gentleman who is here for follow-up. He was seen originally for cardiomyopathy which was diagnosed incidentally when he got admitted to the hospital in June 2022. His EF was 30 35% at that time. He subsequently underwent cardiac catheterization where moderate RCA and circumflex disease was noticed. He was started on guideline directed medical therapy and in few months ejection fraction went back to normal. He had been admitted to hospital unfortunately with pneumonia and some other issues and is quite deconditioned at this point. Does not appear to be volume overloaded or in heart failure. I have advised him that he should undergo physiotherapy and as he gets stronger he should do more physical activity because he is fatigue/dyspnea is linked with deconditioning currently. He has kidney disease and is following closely with Nephrology. He is on losartan and carvedilol. He is also on Farxiga. Taking aspirin Plavix for known vascular disease with previous carotid endarterectomy. Follow-up with us in 6 months. Thank you for allowing me to participate in the care of your patient. Please feel free to contact me if you have any questions. Coding Level of Care Code Est Pt Level 4 (47261) Diagnoses Cardiomyopathy I42.9
== END 2023-07-07 11:38 | disposition home or self-care (01) ==
PROVIDERS: PCP Internal Medicine; Visit Provider Internal Medicine Cardiovascular Disease
DX: I42.9 Cardiomyopathy, unspecified (principal)
CPT/HCPCS: 99214

== ENCOUNTER → 2023-07-07 11:16 | Outpatient (BNVA) | payer MEDICARE, OTHER, SELFPAY | PROVIDERS: PCP Internal Medicine; Visit Provider Internal Medicine Cardiovascular Disease | DX: I42.9 Cardiomyopathy, unspecified (principal); N18.30 Chronic kidney disease, stage 3 unspecified; Z79.899 Other long term (current) drug therapy | CPT/HCPCS: 99212 ==

== ENCOUNTER 2023-08-13 13:06 | Outpatient (RCR) | payer MEDICARE, MEDICAID, SELFPAY ==
[2023-08-13 13:11] VITALS: BP 110/78
== END 2023-09-17 09:38 | disposition home or self-care (01) ==
LOC: HO.PTCHIC 13:06
PROVIDERS: PCP Internal Medicine; Visit Provider Internal Medicine
DX: M79.605 Pain in left leg (principal)
CPT/HCPCS: 97110; 97162

== ENCOUNTER 2023-08-30 10:14 | Outpatient (REF) | payer MEDICARE, MEDICAID, SELFPAY ==
[2023-08-30 13:21] LABS: MANUAL DIFF FLAG NO
[2023-08-30 13:39] LABS: Basophils Absolute Auto 0.1 X10*3/uL (0.0-0.2); Basophils Percent Auto 0.7 % (0-2); Eosinophils Absolute Auto 1.2 X10*3/uL (0.0-0.4); Eosinophils Percent Auto 14.7 % (0-4); Hematocrit 45.3 % (42.0-52.0); Hemoglobin 14.7 g/dl (14.0-18.0); Imm Gran Abs Auto 0.04 X10*3/uL (0.00-0.03); Imm Gran Pct Auto 0.5 % (0.0-0.4); Lymphocytes Absolute Auto 1.2 X10*3/uL (1.2-4.9); Lymphocytes Percent Auto 14.6 % (20-40); Mean Corpuscular HGB Conc 32.5 g/dl (31.0-36.0); Mean Corpuscular Hemoglobin 31.7 pg (27.0-33.0); Mean Corpuscular Volume 97.8 fL (80.0-98.0); Mean Platelet Volume 11.1 fL (9.4-12.4); Monocytes Absolute Auto 0.7 X10*3/uL (0.1-1.2); Monocytes Percent Auto 7.9 % (2-11); Neutrophils Absolute Auto 5.2 x10*3/uL (2.0-8.3); Neutrophils Percent Auto 61.6 % (45-73); Platelet Count 179 X10*3/uL (160-400); Red Blood Count 4.63 X10*6/uL (4.60-5.80); Red Cell Distribution Width 14.3 % (11.0-16.0); White Blood Count 8.4 X10*3/uL (4.8-10.8)
[2023-08-30 13:59] LABS: Alanine Aminotransferase 17 U/L (0-40); Alkaline Phosphatase 163 U/L (39-117); Anion Gap 15 (12-20); Aspartate Amino Transferase 16 U/L (5-37); Bilirubin Total 0.4 mg/dL (0.0-1.0); Blood Urea Nitrogen 30 mg/dL (9-16); Calcium 9.6 mg/dL (8.4-10.2); Carbon Dioxide 26 mmol/L (22-29); Chloride 107 mmol/L (96-108); Cholesterol 197 mg/dL (<200); Estimated Glomerular Filt Rate 44; Glucose Fasting 138 mg/dL (60-99); HDL Cholesterol 44 mg/dL (>40); LDL Cholesterol Calculated 126 mg/dL (<100); Sodium 144 mmol/L (135-145); Total Protein 7.3 g/dL (6.5-8.0); Triglycerides 138 mg/dL (<150)
[2023-08-30 14:04] LABS: Estimated Average Glucose 126 mg/dL
[2023-08-30 14:09] LABS: Prostate Specific Antigen Scr 1.09 ng/mL (<0.05-4.0)
== END 2023-08-30 10:15 | disposition home or self-care (01) ==
LOC: HO.HMGCLDS 10:14
PROVIDERS: PCP Internal Medicine; Visit Provider Internal Medicine
DX: Z12.5 Encounter for screening for malignant neoplasm of prostate (principal); E11.9 Type 2 diabetes mellitus without complications; R53.83 Other fatigue; E78.5 Hyperlipidemia, unspecified
CPT/HCPCS: 36415; 80053; 80061; 83036; 84153; 85025

== ENCOUNTER 2023-11-10 10:14 | Outpatient (REF) | payer MEDICARE, SELFPAY ==
[2023-11-10 13:06] LABS: Hematocrit 48.4 % (42.0-52.0); Hemoglobin 15.6 g/dl (14.0-18.0); Mean Corpuscular HGB Conc 32.2 g/dl (31.0-36.0); Mean Corpuscular Volume 99.2 fL (80.0-98.0); Platelet Count 209 X10*3/uL (160-400); Red Blood Count 4.88 X10*6/uL (4.60-5.80); White Blood Count 7.7 X10*3/uL (4.8-10.8)
[2023-11-10 13:30] LABS: Appearance Urine Clear; Color Urine Yellow; Glucose Urine UA 500 mg/dL (Negative); Leukocyte Esterase Urine Moderate (2+) (Negative); Nitrite Urine Negative (Negative); PH 5.5 (5.0-9.0); UMIC TRIGGER UA YES; Urine Blood Negative (Negative); Urine Ketones Negative (Negative); Urine Protein Negative (Neg-Trace)
[2023-11-10 13:46] LABS: Bacteria Urine None Seen (None Seen); Hyaline Casts Urine 0-2 /LPF (0-2); RBC Urine 0-2 /HPF (0-2); Squamous Epithelial Cell Urine 0-2 /HPF (0-2); WBC Urine 21-50 /HPF (0-5)
[2023-11-10 13:47] LABS: Alanine Aminotransferase 15 U/L (0-40); Albumin Level 4.2 g/dL (3.5-5.0); Alkaline Phosphatase 185 U/L (39-117); Anion Gap 18 (12-20); Aspartate Amino Transferase 20 U/L (5-37); Bilirubin Total 0.4 mg/dL (0.0-1.0); Blood Urea Nitrogen 21 mg/dL (9-16); Calcium 9.8 mg/dL (8.4-10.2); Carbon Dioxide 26 mmol/L (22-29); Chloride 102 mmol/L (96-108); Estimated Glomerular Filt Rate 46; Glucose Random 136 mg/dL (60-115); Sodium 141 mmol/L (135-145); Total Protein 7.2 g/dL (6.5-8.0)
[2023-11-10 14:39] LABS: Creatinine Urine 30.76 mg/dL; Total Protein Urine Random 9 mg/dL (<12)
== END 2023-11-10 10:15 | disposition home or self-care (01) ==
LOC: HO.HMGCLDS 10:14
PROVIDERS: PCP Internal Medicine; Visit Provider Internal Medicine Hypertension Specialist
DX: N18.30 Chronic kidney disease, stage 3 unspecified (principal); N05.9 Unspecified nephritic syndrome with unspecified morphologic changes; N18.9 Chronic kidney disease, unspecified
CPT/HCPCS: 36415; 80053; 81001; 82570; 84156; 85027

== ENCOUNTER 2023-11-15 14:15 | Outpatient (AMB) | payer MEDICARE, MEDICAID, SELFPAY ==
[2023-11-15 14:17] VITALS: BP 144/80; PULSE 80; O2SAT 94; BMI 33.8
--- NOTE | 2023-11-15 14:17 | HO.NEPHOV_ITS ---
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 Sulfator Operator Required: No Accompanied by: Spouse Allergies adhesive Allergy (Severe, Verified 11/15/23 14:19) Rash morphine [MORPHINE] Allergy (Severe, Verified 11/15/23 14:19) NAUSEA codeine [CODEINE] Allergy (Intermediate, Verified 11/15/23 14:19) RASH ibuprofen [From MOTRIN] Allergy (Unknown, Verified 11/15/23 14:19) told to avoid due to kidneys Medication List - Last Reconciled 11/15/23 by Eddie Marsh MD allopurinol 2 tabs PO DAILY aspirin 81 mg PO DAILY carisoprodol 2 tabs PO TID carvedilol 6.25 mg PO BID clopidogrel 75 mg PO DAILY dapagliflozin propanediol (Farxiga) 10 mg PO DAILY 90 days drfciqsfxsf-smecxeuvu-ivedxtdh 100-62.5-25 mcg (Trelegy Ellipta) 1 ea PO DAILY furosemide 20 mg PO DAILY glipizide ER 1 tab PO BID lorazepam 1 mg PO TID losartan 50 mg PO DAILY omega 7-nzq-rrc-fish oil 1,000 mg (120 mg-180 mg) (Fish Oil) 1 cap PO BID omeprazole 1 cap PO DAILY@0630 ondansetron 4 mg PO Q8H PRN oxycodone ER (OxyContin) 30 mg PO BID oxycodone ER (OxyContin) 20 mg PO DAILY@1500 simvastatin 40 mg PO DAILY HPI Comments Details: 78 yr old man with 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 Sister No problems noted. Social History Household Members: Spouse Household Members Other:: 8 Housing: House Do you presently have visiting nurse or other home services: No (not at present, services will restart later this month.) Alcohol intake: former Year quit: 1979 Patient Tobacco Use Status: Former Tobacco user Tobacco use type: Cigarette Years Smoked: ~20 e-Cigarette/Vaping Use: Never Used Advance Directives Date on File: 03/27/23 service: Yes Current occupational status: retired Physical Exam Vital Signs: Last Vital Signs Pulse 80 11/15/23 14:17 BP 144/80 H 11/15/23 14:17 Pulse Ox 94 11/15/23 14:17 Oxygen Delivery Method Room Air 11/15/23 14:17 BMI result Body Mass Index 33.8 Neck Neck: Yes supple Resp Auscultation: clear to auscultation bilaterally Cardio Palpation: no palpable S3 Heart sounds: no rubs GI Palpation (GI): Soft to palpation Auscultation: normal bowel sounds Neuro Motor exam (neuro): no asterixis Results Reviewed Nephrology Results: Hgb 15.6 g/dl (14.0-18.0) 11/10/23 WBC 7.7 X10*3/uL (4.8-10.8) 11/10/23 Plt Count 209 X10*3/uL (160-400) 11/10/23 Sodium 141 mmol/L (135-145) 11/10/23 Potassium 5.0 mmol/L (3.3-5.1) 11/10/23 Chloride 102 mmol/L (96-108) 11/10/23 Carbon Dioxide 26 mmol/L (22-29) 11/10/23 BUN 21 mg/dL (9-16) H 11/10/23 Creatinine 1.50 mg/dL (0.5-1.4) H 11/10/23 Calcium 9.8 mg/dL (8.4-10.2) 11/10/23 Urine Protein Negative mg/dL (Neg-Trace) 11/10/23 Urine Creatinine 30.76 mg/dL 11/10/23 Assessment & Plan Assessment & Plan (1) Chronic renal failure (CRF), stage 3 (moderate): Code(s): N18.30 - Chronic kidney disease, stage 3 unspecified Category: Medical Plan Due to IGA nephropathy s/p super imposed MARICHUY due to dehydration in a setting of diarrhea Renal fx back to baseline Creatinine stable at 1.4 and eGFR od 45 ml/mt Watch BP at home Will screen for anemia and SHPT Avoid nephrotoxins/NSAIDS Recheck labs in 4 months Orders: Orders Complete Blood Count Auto Diff 4 Months N18.30 - Chronic kidney disease, stage 3 unspecified UA and rflx microscopic 4 Months N18.30 - Chronic kidney disease, stage 3 unspecified Total Protein Urine Random 4 Months N18.30 - Chronic kidney disease, stage 3 unspecified Creatinine Urine 4 Months N18.30 - Chronic kidney disease, stage 3 unspecified Comprehensive Met. Panel 4 Months N18.30 - Chronic kidney disease, stage 3 unspecified Coding Level of Care Code Est Pt Level 4 (87459) Diagnoses Chronic renal failure (CRF), stage 3 (moderate) N18.30
== END 2023-11-15 14:34 | disposition home or self-care (01) ==
PROVIDERS: PCP Internal Medicine; Visit Provider Internal Medicine Hypertension Specialist
DX: N18.30 Chronic kidney disease, stage 3 unspecified (principal)
CPT/HCPCS: 99214

== ENCOUNTER → 2023-11-15 14:15 | Outpatient (BNVA) | payer MEDICARE, OTHER, SELFPAY | PROVIDERS: PCP Internal Medicine; Visit Provider Internal Medicine Hypertension Specialist | DX: N18.30 Chronic kidney disease, stage 3 unspecified (principal) | CPT/HCPCS: 99212 ==

== ENCOUNTER 2024-03-01 11:29 | Outpatient (REF) | payer MEDICARE, MEDICAID, SELFPAY ==
--- NOTE | ~2024-03-01 | XR_ITS ---
EXAMINATION: XR CHEST CLINICAL INFORMATION: Cough, dyspnea, rule out pneumonia. COMPARISON: 04/06/2023, 03/26/2023, and correlation made with CT chest 07/19/2022. TECHNIQUE: PA and lateral views of the chest were obtained. FINDINGS: The cardiac and mediastinal contours are normal. The joanna demonstrate enlarged pulmonary arteries bilaterally suggesting pulmonary arterial hypertension. This is a stable finding. The aorta is normal in contour and course with atheromatous calcification. There is underlying COPD, advanced, with hyperaeration and hyperlucency of the pulmonary parenchyma. A few stable areas of basilar scarring are again noted. In the lingular region there is airspace opacity highly suggestive of pneumonia. In addition, there is a nodular abnormality in the right upper lobe which appears more confluent than on previous exams, developing malignancy is a definite consideration. No acute bony or soft tissue abnormalities. Mild degenerative spinal changes. XR/XR chest 2V IMPRESSION: 1. Acute lingular pneumonia. 2. Developing stellate nodular opacity right upper lobe distribution, appearing more confluent than previously and 04/06/2023, possibly reflecting malignancy. CT recommended for definitive evaluation in this high-risk patient. 3. Advanced COPD. 4. Enlarged pulmonary arteries suggesting pulmonary hypertension. Electronically signed by: Brenden Lr MD 03/10/2024 08:51 AM EST
[2024-03-01 13:14] LABS: MANUAL DIFF FLAG NO
[2024-03-01 13:26] LABS: Basophils Absolute Auto 0.1 X10*3/uL (0.0-0.2); Basophils Percent Auto 0.6 % (0-2); Eosinophils Absolute Auto 0.5 X10*3/uL (0.0-0.4); Eosinophils Percent Auto 5.5 % (0-4); Hematocrit 44.5 % (42.0-52.0); Hemoglobin 14.6 g/dl (14.0-18.0); Imm Gran Abs Auto 0.05 X10*3/uL (0.00-0.03); Imm Gran Pct Auto 0.6 % (0.0-0.4); Lymphocytes Absolute Auto 1.5 X10*3/uL (1.2-4.9); Lymphocytes Percent Auto 17.8 % (20-40); Mean Corpuscular HGB Conc 32.8 g/dl (31.0-36.0); Mean Corpuscular Hemoglobin 32.1 pg (27.0-33.0); Mean Corpuscular Volume 97.8 fL (80.0-98.0); Mean Platelet Volume 10.4 fL (9.4-12.4); Neutrophils Absolute Auto 5.5 x10*3/uL (2.0-8.3); Neutrophils Percent Auto 63.5 % (45-73); Platelet Count 231 X10*3/uL (160-400); Red Blood Count 4.55 X10*6/uL (4.60-5.80); Red Cell Distribution Width 14.8 % (11.0-16.0); White Blood Count 8.6 X10*3/uL (4.8-10.8)
[2024-03-01 13:31] LABS: Appearance Urine Cloudy; Color Urine Dark Yellow; Glucose Urine UA >=1000 mg/dL (Negative); Leukocyte Esterase Urine Moderate (2+) (Negative); Nitrite Urine Negative (Negative); PH 5.5 (5.0-9.0); Specific Gravity - Urine 1.025 (1.005-1.025); UMIC TRIGGER UA YES; Urine Blood Negative (Negative); Urine Ketones Trace mg/dL (Negative); Urine Protein Trace mg/dL (Neg-Trace)
[2024-03-01 13:36] LABS: Bacteria Urine None Seen (None Seen); RBC Urine 0-2 /HPF (0-2); Squamous Epithelial Cell Urine 0-2 /HPF (0-2); WBC Urine >50 /HPF (0-5)
[2024-03-01 14:02] LABS: Alanine Aminotransferase 13 U/L (0-40); Alkaline Phosphatase 219 U/L (39-117); Anion Gap 10 (12-20); Aspartate Amino Transferase 23 U/L (5-37); Bilirubin Total 0.5 mg/dL (0.0-1.0); Blood Urea Nitrogen 23 mg/dL (9-16); Calcium 9.5 mg/dL (8.4-10.2); Carbon Dioxide 27 mmol/L (22-29); Chloride 106 mmol/L (96-108); Estimated Glomerular Filt Rate 43; Glucose Random 150 mg/dL (60-115); Potassium 4.4 mmol/L (3.3-5.1); Sodium 139 mmol/L (135-145); Total Protein 7.6 g/dL (6.5-8.0)
[2024-03-01 14:26] LABS: Creatinine Urine 112.84 mg/dL; Total Protein Urine Random 23 mg/dL (<12)
== END 2024-03-01 11:30 | disposition home or self-care (01) ==
LOC: HO.HMGCX 11:29
PROVIDERS: PCP Internal Medicine; Referring Provider Internal Medicine Hypertension Specialist; Visit Provider Internal Medicine
DX: N18.30 Chronic kidney disease, stage 3 unspecified (principal); R05.9 Cough, unspecified
CPT/HCPCS: 36415; 71046; 80053; 81001; 82570; 84156; 85025

== ENCOUNTER → 2024-03-01 11:39 | Outpatient (BNV) | payer MEDICARE, MEDICAID, SELFPAY | PROVIDERS: PCP Internal Medicine; Referring Provider Internal Medicine Hypertension Specialist; Visit Provider Radiology Diagnostic Radiology | DX: J18.1 Lobar pneumonia, unspecified organism (principal); R91.8 Other nonspecific abnormal finding of lung field; J44.9 Chronic obstructive pulmonary disease, unspecified; I27.20 Pulmonary hypertension, unspecified | CPT/HCPCS: 71046 ==

== ENCOUNTER 2024-03-12 12:24 | Emergency (ER) | payer MEDICARE, MEDICAID, SELFPAY ==
--- NOTE | ~2024-03-12 | XR_ITS ---
EXAMINATION: XR CHEST CLINICAL INFORMATION: Weakness. COMPARISON: Most recent chest radiograph dated 03/01/2024. TECHNIQUE: 2 views of the chest were obtained. FINDINGS: Interstitial prominence without focal airspace consolidation. No pleural effusion or pneumothorax. Stable cardiomediastinal silhouette. XR/XR chest 2V IMPRESSION: Interstitial prominence without focal airspace consolidation. Electronically signed by: Angelo Arroyo MD 03/12/2024 01:41 PM [facility]
--- NOTE | ~2024-03-12 | CT_ITS ---
EXAMINATION: CT CHEST WITH CONTRAST CLINICAL INFORMATION: Shortness of breath. COMPARISON: July 19, 2022 TECHNIQUE: Multidetector volumetric CT imaging of the chest was obtained after the administration of 65 mL of Omnipaque 350 intravenous contrast without immediate adverse reactions. Axial MIP volume rendering provided. Sagittal and coronal reformatted images were obtained. This CT examination was performed using dose optimization techniques as appropriate, variously including the following: *Automated exposure control *Adjustment of mA and/or kV according to patient size (this includes techniques or standardized protocols for targeted exams where dose is matched to indication/reason for exam; i.e. extremities or head) *Use of iterative reconstruction technique DLP: 439 mGy-cm FINDINGS: LUNGS: Moderate centrilobular emphysema. Stable 8 mm solid nodule in the lingula on image 373 of series 5. Stable 6 mm subpleural nodule right upper lobe on image 128 of series 5. New posterior subpleural right upper lobe nodular consolidation measures 2.0 cm on image 160 of series 5. New irregular subpleural nodule right upper lobe measuring 1.0 cm on image 78 of series 5. Diffuse bronchial wall thickening. Central airways are patent. MEDIASTINUM: Imaged thyroid gland is heterogeneous. No bulky axillary, hilar or mediastinal lymphadenopathy. Great vessels are of normal caliber. Atherosclerotic changes of the thoracic aorta. Heart size is normal. No pericardial effusion. Marked coronary artery calcification. Elevated right hemidiaphragm. PLEURA: No pleural effusion. UPPER ABDOMEN: Heterogeneous appearance of the spleen. Decreased attenuation of the hepatic parenchyma. No adrenal mass. Atrophic changes of the right kidney. OSSEOUS STRUCTURES: No destructive bone lesions. CT/CT chest w IV con IMPRESSION: New posterior subpleural right upper lobe lobe nodular consolidation measuring 2 cm. New irregular subpleural nodule right upper lobe measuring 1 cm. Infectious or inflammatory etiologies should be considered. Follow-up imaging in 3 months is advised. Electronically signed by: Drew Villarreal MD 03/12/2024 03:36 PM [facility] [place]
--- NOTE | ~2024-03-12 | CT_ITS ---
EXAMINATION: CT HEAD WITHOUT CONTRAST CT CERVICAL SPINE WITHOUT CONTRAST CLINICAL INFORMATION: Fall. Head strike. COMPARISON: Most recent CT head dated 11/11/2022. TECHNIQUE: Contiguous axial imaging was performed from the skull base to vertex without intravenous administration of contrast. Contiguous axial CT images of the cervical spine were obtained without contrast. Sagittal and coronal reformats were provided and reviewed. This CT examination was performed using dose optimization techniques as appropriate, variously including the following: *Automated exposure control *Adjustment of mA and/or kV according to patient size (this includes techniques or standardized protocols for targeted exams where dose is matched to indication/reason for exam; i.e. extremities or head) *Use of iterative reconstruction technique DLP: 1393 mGy-cm FINDINGS: HEAD: There is no evidence of acute intracranial hemorrhage or territorial infarction. No abnormal mass effect or midline shift is seen. Left parieto-occipital encephalomalacia, unchanged. García to white matter differentiation is otherwise preserved. No extra-axial fluid collections are identified. The ventricles are normal in size. There is no abnormal attenuation within the brain parenchyma. The osseous structures and soft tissues are normal. The mastoid air cells and visualized portions of the paranasal sinuses are well aerated. CERVICAL SPINE: Mild reversal of the normal cervical lordosis which may be positional or related to muscular spasm. No acute fracture or subluxation. No loss of vertebral body height. Multilevel loss of intervertebral disc height with degenerative endplate changes and osteophytes. Severe multilevel bilateral facet arthropathy. No lytic or blastic osseous lesion. Unremarkable prevertebral soft tissues. No abnormal soft tissue mass or fluid collection. Thyroid within normal limits. Visualized lung apices are clear. Bkaaoagy-eb-cbjjac multilevel bilateral neural foraminal stenosis. CT/CT cervical spine wo IV con IMPRESSION: HEAD: No acute intracranial hemorrhage or mass effect. Left parieto-occipital encephalomalacia, unchanged. CERVICAL SPINE: No acute fracture or subluxation. Multilevel degenerative disc disease and bilateral facet arthropathy with bahojrew-rb-rldxts multilevel bilateral neural foraminal stenosis. Electronically signed by: Angelo Arroyo MD 03/12/2024 02:06 PM [facility] Workstation: [id number]
--- NOTE | ~2024-03-12 | CT_ITS ---
EXAMINATION: CT HEAD WITHOUT CONTRAST CT CERVICAL SPINE WITHOUT CONTRAST CLINICAL INFORMATION: Fall. Head strike. COMPARISON: Most recent CT head dated 11/11/2022. TECHNIQUE: Contiguous axial imaging was performed from the skull base to vertex without intravenous administration of contrast. Contiguous axial CT images of the cervical spine were obtained without contrast. Sagittal and coronal reformats were provided and reviewed. This CT examination was performed using dose optimization techniques as appropriate, variously including the following: *Automated exposure control *Adjustment of mA and/or kV according to patient size (this includes techniques or standardized protocols for targeted exams where dose is matched to indication/reason for exam; i.e. extremities or head) *Use of iterative reconstruction technique DLP: 1393 mGy-cm FINDINGS: HEAD: There is no evidence of acute intracranial hemorrhage or territorial infarction. No abnormal mass effect or midline shift is seen. Left parieto-occipital encephalomalacia, unchanged. García to white matter differentiation is otherwise preserved. No extra-axial fluid collections are identified. The ventricles are normal in size. There is no abnormal attenuation within the brain parenchyma. The osseous structures and soft tissues are normal. The mastoid air cells and visualized portions of the paranasal sinuses are well aerated. CERVICAL SPINE: Mild reversal of the normal cervical lordosis which may be positional or related to muscular spasm. No acute fracture or subluxation. No loss of vertebral body height. Multilevel loss of intervertebral disc height with degenerative endplate changes and osteophytes. Severe multilevel bilateral facet arthropathy. No lytic or blastic osseous lesion. Unremarkable prevertebral soft tissues. No abnormal soft tissue mass or fluid collection. Thyroid within normal limits. Visualized lung apices are clear. Htcsvvbh-mx-rnawme multilevel bilateral neural foraminal stenosis. CT/CT head/brain wo IV con IMPRESSION: HEAD: No acute intracranial hemorrhage or mass effect. Left parieto-occipital encephalomalacia, unchanged. CERVICAL SPINE: No acute fracture or subluxation. Multilevel degenerative disc disease and bilateral facet arthropathy with kgpurxhk-mh-hzijea multilevel bilateral neural foraminal stenosis. Electronically signed by: Angelo Arroyo MD 03/12/2024 02:06 PM [facility] Workstation: [email or web address]
--- NOTE | 2024-03-12 12:28 | ED_ITS ---
HPI - General Adult General Chief complaint: Fall Stated complaint: FALL W/ WEAKNESS PER EMS Time Seen by Provider: 03/12/24 12:26 Source: patient, EMS, RN notes reviewed and old records reviewed Mode of arrival: EMS Limitations: no limitations History of Present Illness ED Provider: LEXUS YU PA-C HPI narrative: 78 year old male with pmhx significant for cardiomyopathy last ECHO 30-35%%, some diastolic dysfunction, COPD on home O2 prn, KAREN, obesity, UTI, CVA R sided weakness on clopidogrel, DM, CKD presents to the ED today via EMS from home for evaluation of generalized weakness and shortness of breath x weeks. Admits to feeling his legs collapse beneath him today causing him to fall to the ground. Reports posterior head strike on his oxygen tank. Evie LOC. He is anticoagulated on clopidogrel for previous CVAs. Reports residual weakness to lower extremities following multiple back surgeries and CVAs (last CVA 2 yrs ago). He alters between a cane and walker to assist with ambulation. Reports frequent falls, stating that his legs give out from underneath him. Denies any preceding symptoms of headache, dizziness, vision changes, chest pain, palpitations. Additionally reports increasing shortness of breath x weeks. He has a history of COPD, on 1-2 L as needed, typically at night. Has been wearing his oxygen more at home. He has since followed up with his primary care provider for this with chest x-ray concerning for multiple lung nodules. He has a CT scan of the chest ordered outpatient for tomorrow morning. Denies fevers, chills, headache, dizziness, vision changes, neck or back pain, chest pain, palpitations, LE pain/ swelling. Related Data Home Medications ?Medication ?Instructions ?Recorded ?Confirmed allopurinol 100 mg tablet 2 tab PO DAILY 11/09/20 03/12/24 carisoprodol 350 mg tablet 2 tab PO TID 11/09/20 03/12/24 glipizide 2.5 mg tablet, extended 1 tab PO BID 11/09/20 03/12/24 release 24 hr omeprazole 20 mg capsule,delayed 1 cap PO DAILY@0630 11/09/20 03/12/24 release furosemide 20 mg tablet 20 mg PO DAILY 08/19/22 03/12/24 omega 6-ppc-iin-fish oil 1,000 mg 1 cap PO DAILY 12/09/22 03/12/24 (120 mg-180 mg) capsule (Fish Oil) oxycodone 20 mg tablet,crush 20 mg PO DAILY@1500 12/09/22 03/12/24 resistant,extended release 12 hr (OxyContin) clopidogrel 75 mg tablet 75 mg PO DAILY 03/26/23 03/12/24 simvastatin 40 mg tablet 40 mg PO BEDTIME 03/26/23 03/12/24 losartan 50 mg tablet 50 mg PO DAILY 11/15/23 03/12/24 ondansetron 4 mg disintegrating 4 mg PO Q8H PRN Nausea And Vomiting 11/15/23 03/12/24 tablet Previous Rx's ?Medication ?Instructions ?Recorded aspirin 81 mg tablet,delayed 81 mg PO DAILY #30 tabs 11/11/22 release lorazepam 1 mg tablet 1 mg PO TID #4 tabs 11/11/22 oxycodone 30 mg tablet,crush 30 mg PO BID #4 tabs 11/11/22 resistant,extended release 12 hr (OxyContin) fluticasone fur. 100 mcg-umeclid 1 ea PO DAILY #60 ea 06/16/23 62.5 mcg-vilant 25 mcg inhalat.powder (Trelegy Ellipta) carvedilol 6.25 mg tablet 6.25 mg PO BID #180 tabs 10/07/23 dapagliflozin propanediol 10 mg 10 mg PO DAILY 90 days #90 tabs 10/08/23 tablet (Farxiga) Allergies Allergy/AdvReac Type Severity Reaction Status Date / Time adhesive Allergy Severe Rash Verified 03/12/24 12:39 morphine [MORPHINE] Allergy Severe NAUSEA Verified 03/12/24 12:39 codeine [CODEINE] Allergy Intermediate RASH Verified 03/12/24 12:39 ibuprofen [From MOTRIN] Allergy Unknown told to Verified 03/12/24 12:39 avoid due to kidneys Review of Systems 2 Review of Systems: Constitutional: No fever, chills, fatigue, night sweats, weight changes ENT/Mouth: No ear pain, hearing loss, nasal congestion, sinus pain, rhinorrhea, sore throat Eyes: No eye pain, swelling, redness, vision changes, discharge Cardio: No chest pain, palpitations, FRAZIER, orthopnea, peripheral edema, + shortness of breath Pulm: No SOB, cough, sputum, wheezing, dyspnea, hemoptysis GI: No nausea, vomiting, hematemesis, abdominal pain, diarrhea, constipation, hematochezia, melena : No irregular bleeding, dysuria, frequency, urgency, hesitancy, hematuria, flank pain, urinary flow changes, urinary incontinence or retention MSK: No back pain, neck pain, joint pain, myalgias Skin: No lesions, rashes Neuro: No numbness, paresthesias, LOC, dizziness, headache, +generalized weakness Psych: No anxiety/panic, depression, SI/HI, AH/VH All other systems reviewed and are negative. [facility] Past Medical History Attestation statement: The following information was validated with the patient. Source: old records reviewed and nursing notes reviewed Medical History Carotid stenosis, right TIA (transient ischemic attack) Chronic renal failure (CRF), stage 3 (moderate) LBBB (left bundle branch block) Cardiomyopathy CHF (congestive heart failure) Chronic back pain Sleep apnea Oxygen dependent Lung nodule CVA (cerebral vascular accident) Surgical History History of lithotripsy History of vasectomy History of back surgery Family History Family History Father Cirrhosis Mother Myocardial infarction Enlarged heart Sister No problems noted. Sister No problems noted. Social History Social History Household Members: Spouse Household Members Other:: 8 Housing: House Do you presently have visiting nurse or other home services: No (not at present, services will restart later this month.) Alcohol intake: former Year quit: 1979 Patient Tobacco Use Status: Former Tobacco user Tobacco use type: Cigarette Years Smoked: ~20 Smoked in Last 30 Days: No e-Cigarette/Vaping Use: Never Used Advance Directives: Yes Advance Directives on File: Yes Advance Directives Date on File: 03/27/23 Do you have a plan to hurt others: No Plan service: Yes Current occupational status: retired Physical Exam ED Vital Signs: Vital Signs - 24 hr 03/12/24 14:05 03/12/24 15:53 03/12/24 16:28 Temperature 98.2 F Pulse Rate 94 72 90 Respiratory Rate 19 20 20 Blood Pressure 122/75 137/71 Pulse Oximetry 94 91 L Oxygen Delivery Method Nasal Cannula Room Air Oxygen Flow Rate 3 03/12/24 17:57 03/12/24 21:38 03/13/24 06:00 Temperature 98.4 F 98.6 F Pulse Rate 102 H 84 68 Respiratory Rate 22 H 20 18 Blood Pressure 142/77 H 156/92 H 158/78 H Pulse Oximetry 96 92 90 L Oxygen Delivery Method Nasal Cannula Nasal Cannula Nasal Cannula Oxygen Flow Rate 2 2 2 03/13/24 08:54 03/13/24 08:54 03/13/24 08:56 Temperature Pulse Rate 68 Respiratory Rate Blood Pressure 158/78 H 158/78 H 158/78 H Pulse Oximetry Oxygen Delivery Method Oxygen Flow Rate 03/13/24 10:56 Temperature Pulse Rate Respiratory Rate Blood Pressure Pulse Oximetry 92 Oxygen Delivery Method Oxygen Flow Rate BMI result Body Mass Index 33.9 General: Well appearing, in no acute distress. Skin: Warm, dry, intact. No rashes or lesions. Head: Normocephalic, atraumatic. Cardiac: Chest wall symmetric. RRR Lungs: on 3L NC. Lungs with diminished BS bilaterally, mild expiratory wheezes throughout Abdomen: Soft, non-tender, non-distended Back: No midline spinous or paraspinal tenderness. No step off deformity. Ext: Upper and lower extremities atraumatic, without tenderness, deformity, swelling or erythema Neuro: AOx3. Normal speech. 3/5 strenght to LEs. No saddle anesthesia. Sensation intact to light touch. NV intact distally. Reflexes 2+ bilaterally. Ambulating with steady gait. Psych: Appropriate mood and affect. Responds appropriately to questions. Course Course Course Narrative: 1530 -- CBC without leukocytosis or left shift. No anemia. H&H stable. Chemistry without acute electrolyte abnormality requiring intervention. Kidney function appears to be around baseline - IVF ordered. random glucose 133. normal liver function. Head CT without mass or bleed. CT cervical spine without fracture or subluxation. Chest x-ray showing interstitial prominence without focal airspace consolidation. Chest CT showing moderate centrilobular emphysema. There is a stable 8 mm solid nodule in the lingula. Stable 6 mm subpleural nodule right upper lobe. New posterior slab pleural right upper lobe nodular consolidation measuring 2 cm. New irregular subpleural nodule right upper lobe measuring 1 cm. Diffuse bronchial wall thickening. Infectious versus inflammatory etiologies should be considered. Recommending follow-up imaging in 3 months. 1651-- Hospitalist at bedside to evaluate patient. He does not believe patient meets inpatient criteria at this time. He is currently satting 97% on room air requiring 2 L nasal cannula which is his baseline. On ambulatory O2, patient only dropped down to 91%. He just recently completed a course of doxycycline yesterday for pneumonia. Imaging isn't terribly concerning for new infectious process. I did discuss results of new irregularly shaped nodules and informed patient that he will need to follow up with his PCP regarding these findings as cancer can not be ruled out. At this time, will obtain PT/case management consult for global weakness. Patient and family at bedside are agreeable with this. Physician observation initiated at this time. 03/13/24--1001--physician observation continued. Vital signs stable. Labs reviewed. Med reconciliation completed. UA added, will monitor for results. PT and case management consults currently pending. We will continue to monitor for discharge needs Physician observation completed at 1332 on 03/13/2024 Patient does not meet medical necessity for hospitalization. Patient will be discharged home with VNA for assisted and physical therapy. Final disposition discussed with patient and family who verbalized understanding and are in agreement. Medications Administered Generic Name Dose Route Start Last Admin Trade Name Freq PRN Reason Stop Dose Admin Allopurinol 200 mg 03/13/24 09:00 03/13/24 08:54 Allopurinol 100 Mg Tablet PO 200 mg DAILY AISHWARYA Administration Aspirin 81 mg 03/13/24 09:00 03/13/24 08:53 Aspirin Enteric Coated 81 Mg Tablet. PO 81 mg DAILY AISHWARYA Administration Atorvastatin Calcium 20 mg 03/12/24 21:00 03/12/24 21:52 Atorvastatin Calcium 20 Mg Tablet PO 20 mg BEDTIME AISHWARYA Administration Carisoprodol 700 mg 03/12/24 21:00 03/13/24 08:53 Carisoprodol 350 Mg Tablet PO 700 mg TID AISHWARYA Administration Carvedilol 6.25 mg 03/12/24 21:00 03/13/24 08:56 Carvedilol 6.25 Mg Tablet PO 6.25 mg BID AISHWARYA Administration Protocol Clopidogrel Bisulfate 75 mg 03/13/24 09:00 03/13/24 08:54 Clopidogrel Bisulfate 75 Mg Tablet PO 75 mg DAILY AISHWARYA Administration Furosemide 20 mg 03/13/24 09:00 03/13/24 08:54 Furosemide 20 Mg Tablet PO 20 mg DAILY AISHWARYA Administration Protocol Glipizide 2.5 mg 03/12/24 21:00 03/13/24 09:11 Glipizide Xl 2.5 Mg Tab.Er.24 PO 2.5 mg BID AISHWARYA Administration Insulin Human Lispro 0 unit 03/12/24 21:00 03/13/24 11:51 Insulin Lispro 100 Unit/Ml 3 Ml Vial SUBCUT Not Given QIDACHS [facility] Protocol Lorazepam 1 mg 03/12/24 21:00 03/13/24 08:54 Lorazepam 1 Mg Tablet PO 1 mg TID AISHWARYA Administration Losartan Potassium 50 mg 03/13/24 09:00 03/13/24 08:54 Losartan Potassium 50 Mg Tablet PO 50 mg DAILY AISHWARYA Administration Protocol Omeprazole 20 mg 03/13/24 06:30 03/13/24 05:55 Omeprazole 20 Mg Capsule.Dr PO 20 mg DAILY@0630 AISHWARYA Administration Oxycodone HCl 30 mg 03/12/24 21:00 03/13/24 08:55 Oxycodone Hcl Er 10 Mg Tab.Er.12h PO 30 mg BID AISHWARYA Administration Discontinued Medications Generic Name Dose Route Start Last Admin Trade Name Freq PRN Reason Stop Dose Admin Ceftriaxone Sodium 1 gm 03/12/24 15:46 03/12/24 16:02 Ceftriaxone Sodium 1 Gm Vial IVPUSH 03/12/24 15:47 1 gm ONCE ONE Administration Albuterol Sulfate 2.5 mg/ 0 mg 03/12/24 16:22 03/12/24 16:26 Albuterol/Ipratropium 3 ml INHALE 03/12/24 16:23 5 dose ONCE ONE Administration Guaifenesin/Codeine Phosphate 10 ml 03/12/24 23:07 03/12/24 23:14 Guaifen/Codeine Sf 200/20/10ml 10 Ml Liquid PO 03/12/24 23:08 10 ml ONCE ONE Administration Sodium Chloride 1,000 mls @ 999 mls/hr 03/12/24 14:15 03/12/24 16:03 Ns IV 03/12/24 15:15 Infused .Q1H1M AISHWARYA Infusion Iohexol 100 ml 03/12/24 14:47 03/12/24 14:48 Iohexol 350 Mg/Ml 100 Ml Infus..Btl IV 03/12/24 14:48 65 ml ONCE ONE Administration Methylprednisolone Sodium Succinate 125 mg 03/12/24 15:46 03/12/24 16:02 Methylprednisolone Sod Succ 125 Mg/2 Ml Vial IVPUSH 03/12/24 15:47 125 mg ONCE ONE Administration Oxycodone HCl 30 mg 03/12/24 17:05 03/12/24 18:01 Oxycodone Hcl Immed Release 15 Mg Tablet PO 03/12/24 17:06 30 mg ONCE ONE Administration Medical Decision Making Medical Decision Making [facility] Narrative: 78 year old male with pmhx significant for cardiomyopathy last ECHO 30-35%%, some diastolic dysfunction, COPD on home O2 prn, KAREN, obesity, UTI, CVA R sided weakness on clopidogrel, DM, CKD presents to the ED today via EMS from home for evaluation of generalized weakness and shortness of breath x weeks. Differential diagnosis includes anemia, electrolyte abnormality, dehydration, pneumonia, bronchitis, COPD exacerbation, hypoxic respiratory failure. NIH 0. Plan for imaging, labs, ekg, ed bronch protocol, re-eval. Differential Diagnosis Differential Diagnoses: The differential diagnosis associated with the presentation includes as above. Admission/Observation Consideration of admission/observation: Escalation of care including admission/observation considered admission considered on presentation Consult Healthcare Provider Management of the patient was discussed with: Hospitalist (Tiffani SALGUERO) Lab Data [facility] Lab Attestation statement: I reviewed the patient's lab results. as above. 03/12/24 13:36 03/12/24 13:27 Labs: Lab Results 03/12/24 03/12/24 03/12/24 Range/Units 13:17 13:27 13:36 WBC 9.4 (4.8-10.8) X10*3/uL RBC 4.86 (4.60-5.80) X10*6/uL Hgb 15.4 (14.0-18.0) g/dl Hct 48.5 (42.0-52.0) % MCV 99.8 H (80.0-98.0) fL MCH 31.7 (27.0-33.0) pg MCHC 31.8 (31.0-36.0) g/dl RDW 14.4 (11.0-16.0) % Plt Count 171 D (160-400) X10*3/uL MPV 10.2 (9.4-12.4) fL Immature Gran % (Auto) 0.6 H (0.0-0.4) % Neut % (Auto) 70.4 (45-73) % Lymph % (Auto) 12.6 L (20-40) % [place] % (Auto) 8.5 (2-11) % Eos % (Auto) 7.5 H (0-4) % Baso % (Auto) 0.4 (0-2) % Lymph # (Auto) 1.2 (1.2-4.9) X10*3/uL [place] # (Auto) 0.8 (0.1-1.2) X10*3/uL Eos # (Auto) 0.7 H (0.0-0.4) X10*3/uL Baso # (Auto) 0.0 (0.0-0.2) X10*3/uL Abs Immat Gran (auto) 0.06 H (0.00-0.03) X10*3/uL Absolute Neuts (auto) 6.6 (2.0-8.3) x10*3/uL Absolute Nucleated RBC 0.000 (0.0-0.012) X10*3/uL Nucleated RBC % (auto) 0.0 (0.0-0.2) /100WBC PT 11.6 (10.9-12.4) SEC INR 1.0 (0.9-1.1) VBG pH (7.32-7.43) VBG pCO2 mmHg VBG pO2 mmHg VBG HCO3 (22-26) mmol/L VBG O2 Saturation % VBG Base Excess mmol/L Sodium 143 (135-145) mmol/L Potassium 4.4 (3.3-5.1) mmol/L Chloride 109 H (96-108) mmol/L Carbon Dioxide 26 (22-29) mmol/L Anion Gap 12 (12-20) BUN 37 H (9-16) mg/dL Creatinine 1.49 H (0.5-1.4) mg/dL Estim Creat Clear Calc 54.8 Estimated GFR 46 POC Glucose (60-115) mg/dL Random Glucose 133 H (60-115) mg/dL Calcium 8.8 D (8.4-10.2) mg/dL Magnesium 2.0 (1.6-2.6) mg/dL Total Bilirubin 0.4 (0.0-1.0) mg/dL AST 18 (5-37) U/L ALT 13 (0-40) U/L Alkaline Phosphatase 180 H (39-117) U/L Total Creatine Kinase 57 (38-174) U/L Troponin I High Sens 7.2 D (<3.5-35.0) ng/L B-Natriuretic Peptide 73 (<100) pg/mL Total Protein 6.6 (6.5-8.0) g/dL Albumin 3.5 (3.5-5.0) g/dL Lipase 19 (8-78) U/L Influenza Type A (PCR) NEGATIVE (Negative) Influenza Type B (PCR) NEGATIVE (Negative) RSV RNA Qual (PCR) NEGATIVE (Negative) SARS-CoV-2 RNA (RT-PCR) NEGATIVE (Negative) 03/12/24 03/12/24 03/13/24 Range/Units 16:35 21:29 07:23 WBC (4.8-10.8) X10*3/uL RBC (4.60-5.80) X10*6/uL Hgb (14.0-18.0) g/dl Hct (42.0-52.0) % MCV (80.0-98.0) fL MCH (27.0-33.0) pg MCHC (31.0-36.0) g/dl RDW (11.0-16.0) % Plt Count (160-400) X10*3/uL MPV (9.4-12.4) fL Immature Gran % (Auto) (0.0-0.4) % Neut % (Auto) (45-73) % Lymph % (Auto) (20-40) % [place] % (Auto) (2-11) % Eos % (Auto) (0-4) % Baso % (Auto) (0-2) % Lymph # (Auto) (1.2-4.9) X10*3/uL [place] # (Auto) (0.1-1.2) X10*3/uL Eos # (Auto) (0.0-0.4) X10*3/uL Baso # (Auto) (0.0-0.2) X10*3/uL Abs Immat Gran (auto) (0.00-0.03) X10*3/uL Absolute Neuts (auto) (2.0-8.3) x10*3/uL Absolute Nucleated RBC (0.0-0.012) X10*3/uL Nucleated RBC % (auto) (0.0-0.2) /100WBC PT (10.9-12.4) SEC INR (0.9-1.1) VBG pH 7.36 (7.32-7.43) VBG pCO2 49 mmHg VBG pO2 42 mmHg VBG HCO3 28 H (22-26) mmol/L VBG O2 Saturation 65.0 % VBG Base Excess 1.7 mmol/L Sodium (135-145) mmol/L Potassium (3.3-5.1) mmol/L Chloride (96-108) mmol/L Carbon Dioxide (22-29) mmol/L Anion Gap (12-20) BUN (9-16) mg/dL Creatinine (0.5-1.4) mg/dL Estim Creat Clear Calc Estimated GFR POC Glucose 181 H 169 H (60-115) mg/dL Random Glucose (60-115) mg/dL Calcium (8.4-10.2) mg/dL Magnesium (1.6-2.6) mg/dL Total Bilirubin (0.0-1.0) mg/dL AST (5-37) U/L ALT (0-40) U/L Alkaline Phosphatase (39-117) U/L Total Creatine Kinase (38-174) U/L Troponin I High Sens (<3.5-35.0) ng/L B-Natriuretic Peptide (<100) pg/mL Total Protein (6.5-8.0) g/dL Albumin (3.5-5.0) g/dL Lipase (8-78) U/L Influenza Type A (PCR) (Negative) Influenza Type B (PCR) (Negative) RSV RNA Qual (PCR) (Negative) SARS-CoV-2 RNA (RT-PCR) (Negative) 03/13/24 Range/Units 11:39 WBC (4.8-10.8) X10*3/uL RBC (4.60-5.80) X10*6/uL Hgb (14.0-18.0) g/dl Hct (42.0-52.0) % MCV (80.0-98.0) fL MCH (27.0-33.0) pg MCHC (31.0-36.0) g/dl RDW (11.0-16.0) % Plt Count (160-400) X10*3/uL MPV (9.4-12.4) fL Immature Gran % (Auto) (0.0-0.4) % Neut % (Auto) (45-73) % Lymph % (Auto) (20-40) % [place] % (Auto) (2-11) % Eos % (Auto) (0-4) % Baso % (Auto) (0-2) % Lymph # (Auto) (1.2-4.9) X10*3/uL [place] # (Auto) (0.1-1.2) X10*3/uL Eos # (Auto) (0.0-0.4) X10*3/uL Baso # (Auto) (0.0-0.2) X10*3/uL Abs Immat Gran (auto) (0.00-0.03) X10*3/uL Absolute Neuts (auto) (2.0-8.3) x10*3/uL Absolute Nucleated RBC (0.0-0.012) X10*3/uL Nucleated RBC % (auto) (0.0-0.2) /100WBC PT (10.9-12.4) SEC INR (0.9-1.1) VBG pH (7.32-7.43) VBG pCO2 mmHg VBG pO2 mmHg VBG HCO3 (22-26) mmol/L VBG O2 Saturation % VBG Base Excess mmol/L Sodium (135-145) mmol/L Potassium (3.3-5.1) mmol/L Chloride (96-108) mmol/L Carbon Dioxide (22-29) mmol/L Anion Gap (12-20) BUN (9-16) mg/dL Creatinine (0.5-1.4) mg/dL Estim Creat Clear Calc Estimated GFR POC Glucose 131 H (60-115) mg/dL Random Glucose (60-115) mg/dL Calcium (8.4-10.2) mg/dL Magnesium (1.6-2.6) mg/dL Total Bilirubin (0.0-1.0) mg/dL AST (5-37) U/L ALT (0-40) U/L Alkaline Phosphatase (39-117) U/L Total Creatine Kinase (38-174) U/L Troponin I High Sens (<3.5-35.0) ng/L B-Natriuretic Peptide (<100) pg/mL Total Protein (6.5-8.0) g/dL Albumin (3.5-5.0) g/dL Lipase (8-78) U/L Influenza Type A (PCR) (Negative) Influenza Type B (PCR) (Negative) RSV RNA Qual (PCR) (Negative) SARS-CoV-2 RNA (RT-PCR) (Negative) Independent Interpretation I performed an independent interpretation of an: EKG, Plain X-Ray and CT Scan Interpretation: EKG showing normal sinus rhythm with a rate of 93 beats per minute, QT 370, QTC 460, no acute ischemic changes or ST elevations. Chest x-ray without focal consolidation or infiltrate. No pneumothorax. No effusion. CT head/brain without bleed or mass CT cervical spine without fracture or subluxation CT chest w/ contrast with multiple lung nodules Radiology Impression Discussion of test interpretation with radiology: I have reviewed the radiologist's reading. Radiologist Impression: EXAMINATION: XR CHEST CLINICAL INFORMATION: Weakness. COMPARISON: Most recent chest radiograph dated 03/01/2024. TECHNIQUE: 2 views of the chest were obtained. FINDINGS: Interstitial prominence without focal airspace consolidation. No pleural effusion or pneumothorax. Stable cardiomediastinal silhouette. XR/XR chest 2V IMPRESSION: Interstitial prominence without focal airspace consolidation. Electronically signed by: Angelo Arroyo MD 03/12/2024 01:41 PM [facility] [place]: CT HEAD WITHOUT CONTRAST CT CERVICAL SPINE WITHOUT CONTRAST CLINICAL INFORMATION: Fall. Head strike. COMPARISON: Most recent CT head dated 11/11/2022. TECHNIQUE: Contiguous axial imaging was performed from the skull base to vertex without intravenous administration of contrast. Contiguous axial CT images of the cervical spine were obtained without contrast. Sagittal and coronal reformats were provided and reviewed. This CT examination was performed using dose optimization techniques as appropriate, variously including the following: *Automated exposure control *Adjustment of mA and/or kV according to patient size (this includes techniques or standardized protocols for targeted exams where dose is matched to indication/reason for exam; i.e. extremities or head) *Use of iterative reconstruction technique DLP: 1393 mGy-cm FINDINGS: HEAD: There is no evidence of acute intracranial hemorrhage or territorial infarction. No abnormal mass effect or midline shift is seen. Left parieto-occipital encephalomalacia, unchanged. García to white matter differentiation is otherwise preserved. No extra-axial fluid collections are identified. The ventricles are normal in size. There is no abnormal attenuation within the brain parenchyma. The osseous structures and soft tissues are normal. The mastoid air cells and visualized portions of the paranasal sinuses are well aerated. CERVICAL SPINE: Mild reversal of the normal cervical lordosis which may be positional or related to muscular spasm. No acute fracture or subluxation. No loss of vertebral body height. Multilevel loss of intervertebral disc height with degenerative endplate changes and osteophytes. Severe multilevel bilateral facet arthropathy. No lytic or blastic osseous lesion. Unremarkable prevertebral soft tissues. No abnormal soft tissue mass or fluid collection. Thyroid within normal limits. Visualized lung apices are clear. [id number] multilevel bilateral neural foraminal stenosis. CT/CT head/brain wo IV con IMPRESSION: HEAD: No acute intracranial hemorrhage or mass effect. Left parieto-occipital encephalomalacia, unchanged. CERVICAL SPINE: No acute fracture or subluxation. Multilevel degenerative disc disease and bilateral facet arthropathy with [id number] multilevel bilateral neural foraminal stenosis. Electronically signed by: Angelo Arroyo MD 03/12/2024 02:[address] chest w IV con IMPRESSION: New posterior subpleural right upper lobe lobe nodular consolidation measuring 2 cm. New irregular subpleural nodule right upper lobe measuring 1 cm. Infectious or inflammatory etiologies should be considered. Follow-up imaging in 3 months is advised. Electronically signed by: Drew Villarreal MD 03/12/2024 03:36 PM EST RP Independent Historian Clinical information obtained from an independent historian. History obtained from or confirmed by: EMS and Other (daughter) External Record Review External record reviewed: Inpatient record, Office record, Outpatient record, Prior outpatient labs, Prior outpatient radiology, Primary care record and Outside ED record Prescription Management I considered prescription management with: Pain Medication Chronic Conditions Patient?s care impacted by: Other (COPD, CVA) Critical Care Time Critical Care Time Critical Care Time: No Discharge Plan Discharge Clinical Impression: Generalized weakness, COPD (chronic obstructive pulmonary disease), Multiple lung nodules Patient Disposition: Still a Patient Prescriptions: No Action Trelegy Ellipta 100-62.5-25 mcg blister with device 1 ea PO DAILY Qty: 60 0RF carvedilol 6.25 mg tablet 6.25 mg PO BID Qty: 180 0RF Farxiga 10 mg tablet 10 mg PO DAILY 90 Days Qty: 90 3RF carisoprodol 350 mg tablet 2 tab PO TID allopurinol 100 mg tablet 2 tab PO DAILY glipizide 2.5 mg tablet extended release 24hr 1 tab PO BID omeprazole 20 mg capsule,delayed release(DR/EC) 1 cap PO DAILY@0630 oxycodone [OxyContin] 20 mg tablet,oral only,ext.rel.12 hr 20 mg PO DAILY@1500 omega 6-[id number]-mzb-fish oil [Fish Oil] 1,000 mg (120 mg-180 mg) Capsule 1 cap PO DAILY clopidogrel 75 mg tablet 75 mg PO DAILY simvastatin 40 mg tablet 40 mg PO BEDTIME aspirin 81 mg Tablet,Delayed Release (Dr/Ec) 81 mg PO DAILY Qty: 30 0RF lorazepam 1 mg tablet 1 mg PO TID Qty: 4 0RF oxycodone [OxyContin] 30 mg tablet,oral only,ext.rel.12 hr 30 mg PO BID Qty: 4 0RF furosemide 20 mg tablet 20 mg PO DAILY losartan 50 mg tablet 50 mg PO DAILY ondansetron 4 mg tablet,disintegrating 4 mg PO Q8H PRN (Reason: Nausea And Vomiting) Referrals: [facility] [Outside] (Agency will call to arrange visit. ) Print Language: Kazakh
[2024-03-12 12:32] VITALS: BP 110/50; BP 112/72; PULSE 94; RESP 19; TEMP 36.7; O2SAT 92; O2SAT 94; BMI 33.9
--- NOTE | 2024-03-12 12:41 | ECG_ITS ---
Test Reason : SOB Blood Pressure : / mmHG Vent. Rate : 093 BPM Atrial Rate : 093 BPM P-R Int : 174 ms QRS Dur : 074 ms QT Int : 370 ms P-R-T Axes : 036 -03 059 degrees QTc Int : 460 ms Normal sinus rhythm Low voltage QRS Septal infarct , age undetermined Abnormal ECG When compared with ECG of 26-MAR-2023 14:33, No significant change was found Referred By: Bonny Clemons Electronically Signed By:SHANNEN WATERS MD
[2024-03-12 13:40] LABS: MANUAL DIFF FLAG NO
[2024-03-12 13:42] LABS: Basophils Percent Auto 0.4 % (0-2); Eosinophils Absolute Auto 0.7 X10*3/uL (0.0-0.4); Eosinophils Percent Auto 7.5 % (0-4); Hematocrit 48.5 % (42.0-52.0); Hemoglobin 15.4 g/dl (14.0-18.0); Imm Gran Abs Auto 0.06 X10*3/uL (0.00-0.03); Imm Gran Pct Auto 0.6 % (0.0-0.4); Lymphocytes Absolute Auto 1.2 X10*3/uL (1.2-4.9); Lymphocytes Percent Auto 12.6 % (20-40); Mean Corpuscular HGB Conc 31.8 g/dl (31.0-36.0); Mean Corpuscular Hemoglobin 31.7 pg (27.0-33.0); Mean Corpuscular Volume 99.8 fL (80.0-98.0); Mean Platelet Volume 10.2 fL (9.4-12.4); Monocytes Absolute Auto 0.8 X10*3/uL (0.1-1.2); Monocytes Percent Auto 8.5 % (2-11); Neutrophils Absolute Auto 6.6 x10*3/uL (2.0-8.3); Neutrophils Percent Auto 70.4 % (45-73); Platelet Count 171 X10*3/uL (160-400); Red Blood Count 4.86 X10*6/uL (4.60-5.80); Red Cell Distribution Width 14.4 % (11.0-16.0); White Blood Count 9.4 X10*3/uL (4.8-10.8)
[2024-03-12 13:47] LABS: Prothrombin Time 11.6 SEC (10.9-12.4)
[2024-03-12 13:48] LABS: Alanine Aminotransferase 13 U/L (0-40); Albumin Level 3.5 g/dL (3.5-5.0); Alkaline Phosphatase 180 U/L (39-117); Anion Gap 12 (12-20); Aspartate Amino Transferase 18 U/L (5-37); Bilirubin Total 0.4 mg/dL (0.0-1.0); Blood Urea Nitrogen 37 mg/dL (9-16); Calcium 8.8 mg/dL (8.4-10.2); Carbon Dioxide 26 mmol/L (22-29); Chloride 109 mmol/L (96-108); Creatinine Clr Calc Pharmacy 54.8; Estimated Glomerular Filt Rate 46; Glucose Random 133 mg/dL (60-115); Lipase 19 U/L (8-78); Potassium 4.4 mmol/L (3.3-5.1); Sodium 143 mmol/L (135-145); Total Protein 6.6 g/dL (6.5-8.0)
[2024-03-12 13:55] LABS: Troponin-I High Sensitivity 7.2 ng/L (<3.5-35.0)
[2024-03-12 14:02] LABS: B Type Natriuretic Peptide 73 pg/mL (<100)
[2024-03-12 14:05] VITALS: BP 122/75; PULSE 94; RESP 19; O2SAT 94
[2024-03-12] MEDS: 0.9 % Sodium Chloride 1,000 ML 999 ML IV (14:19)
[2024-03-12] MEDS: iohexoL 350 MG/ML 100 ML INFUS..BTL IV (14:48)
[2024-03-12 15:02] LABS: Influenza A PCR NEGATIVE (Negative); Influenza B PCR NEGATIVE (Negative); Resp Syncy Virus RNA Qual PCR NEGATIVE (Negative); SARS COV2 PCR INHOUSE NEGATIVE (Negative)
[2024-03-12 15:53] VITALS: BP 137/71; PULSE 72; RESP 20; TEMP 36.8; O2SAT 91
[2024-03-12] MEDS: cefTRIAXone sodium 1 GM VIAL IVPUSH (16:02)
[2024-03-12] MEDS: methylPREDNISolone Sod Succ 125 MG/2 ML VIAL IVPUSH (16:02)
--- NOTE | 2024-03-12 16:17 | P.HPHOSP_ITS ---
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 In the ED pt with elevated HR of 94 and satting as low as 91% on RA. Labs were significant for CXR showed CT? EKG demonstrated Pt was treated with Pt will be admitted to the hospital [facility] Medical History Carotid stenosis, right TIA (transient ischemic attack) Chronic renal failure (CRF), stage 3 (moderate) LBBB (left bundle branch block) Cardiomyopathy CHF (congestive heart failure) Chronic back pain Sleep apnea Oxygen dependent Lung nodule CVA (cerebral vascular accident) Family History Father Cirrhosis Mother Myocardial infarction Enlarged heart Sister No problems noted. Sister No problems noted. Surgical History History of lithotripsy History of vasectomy History of back surgery Social History Household Members: Spouse Household Members Other:: 8 Housing: House Do you presently have visiting nurse or other home services: No (not at present, services will restart later this month.) Alcohol intake: former Year quit: 1979 Patient Tobacco Use Status: Former Tobacco user Tobacco use type: Cigarette Years Smoked: ~20 Smoked in Last 30 Days: No e-Cigarette/Vaping Use: Never Used Advance Directives: Yes Advance Directives on File: Yes Advance Directives Date on File: 03/27/23 Do you have a plan to hurt others: No Plan service: Yes Current occupational status: retired Meds Allergies Allergy/AdvReac Type Severity Reaction Status Date / Time adhesive Allergy Severe Rash Verified 03/12/24 12:39 morphine [MORPHINE] Allergy Severe NAUSEA Verified 03/12/24 12:39 codeine [CODEINE] Allergy Intermediate RASH Verified 03/12/24 12:39 ibuprofen [From MOTRIN] Allergy Unknown told to Verified 03/12/24 12:39 avoid due to kidneys Home Medications ?Medication ?Instructions ?Recorded ?Confirmed ?Last Taken ?Type allopurinol 100 mg tablet 2 tab PO DAILY 11/09/20 11/15/23 12/13/22 History carisoprodol 350 mg tablet 2 tab PO TID 11/09/20 11/15/23 12/13/22 History glipizide 2.5 mg tablet, extended 1 tab PO BID 11/09/20 11/15/23 12/13/22 History release 24 hr omeprazole 20 mg capsule,delayed 1 cap PO DAILY@0630 11/09/20 11/15/23 12/14/22 04:00 History release furosemide 20 mg tablet 20 mg PO DAILY 08/19/22 11/15/23 12/13/22 History omega 4-sny-gco-fish oil 1,000 mg 1 cap PO BID 12/09/22 11/15/23 12/13/22 History (120 mg-180 mg) capsule (Fish Oil) oxycodone 20 mg tablet,crush 20 mg PO DAILY@1500 12/09/22 11/15/23 12/14/22 04:00 History resistant,extended release 12 hr (OxyContin) clopidogrel 75 mg tablet 75 mg PO DAILY 03/26/23 11/15/23 Unknown History simvastatin 40 mg tablet 40 mg PO DAILY 03/26/23 11/15/23 Unknown History losartan 50 mg tablet 50 mg PO DAILY 11/15/23 11/15/23 Unknown History ondansetron 4 mg disintegrating 4 mg PO Q8H PRN 11/15/23 11/15/23 Unknown History tablet Physical Exam 2 Vital Signs and Narrative: Vital Signs: Last Vital Signs Temp 98.2 F 03/12/24 15:53 Pulse 72 03/12/24 15:53 Resp 20 03/12/24 15:53 BP 137/71 03/12/24 15:53 Pulse Ox 91 L 03/12/24 15:53 O2 Del Method Room Air 03/12/24 15:53 O2 Flow Rate 3 03/12/24 14:05 Oxygen Flow Rate 2 03/12/24 12:32 BMI result Body Mass Index 33.9 Results Labs 03/12/24 13:36 03/12/24 13:27 Labs: Laboratory Results - last 24 hr 03/12/24 03/12/24 03/12/24 13:17 13:27 13:36 MCV 99.8 H MCH 31.7 MCHC 31.8 RDW 14.4 Plt Count 171 D MPV 10.2 Immature Gran % (Auto) 0.6 H Neut % (Auto) 70.4 Lymph % (Auto) 12.6 L Haskell % (Auto) 8.5 Eos % (Auto) 7.5 H Baso % (Auto) 0.4 Lymph # (Auto) 1.2 Haskell # (Auto) 0.8 Eos # (Auto) 0.7 H Baso # (Auto) 0.0 Abs Immat Gran (auto) 0.06 H Absolute Neuts (auto) 6.6 Absolute Nucleated RBC 0.000 Nucleated RBC % (auto) 0.0 PT 11.6 INR 1.0 Anion Gap 12 Estim Creat Clear Calc 54.8 Estimated GFR 46 Random Glucose 133 H Calcium 8.8 D Magnesium 2.0 Total Bilirubin 0.4 AST 18 ALT 13 Alkaline Phosphatase 180 H Total Creatine Kinase 57 Troponin I High Sens 7.2 D B-Natriuretic Peptide 73 Total Protein 6.6 Albumin 3.5 Lipase 19 Influenza Type A (PCR) NEGATIVE Influenza Type B (PCR) NEGATIVE RSV RNA Qual (PCR) NEGATIVE SARS-CoV-2 RNA (RT-PCR) NEGATIVE Imaging Radiologist's Impressions: Impressions Chest X-Ray 03/12/24 12:40 IMPRESSION: Interstitial prominence without focal airspace consolidation. Electronically signed by: Angelo Arroyo MD 03/12/2024 01:41 PM EST RP Cervical Spine CT 03/12/24 12:42 IMPRESSION: HEAD: No acute intracranial hemorrhage or mass effect. Left parieto-occipital encephalomalacia, unchanged. CERVICAL SPINE: No acute fracture or subluxation. Multilevel degenerative disc disease and bilateral facet arthropathy with wilijiyi-kd-cpeaje multilevel bilateral neural foraminal stenosis. Electronically signed by: Angelo Arroyo MD 03/12/2024 02:06 PM EST RP Head CT 03/12/24 13:03 IMPRESSION: HEAD: No acute intracranial hemorrhage or mass effect. Left parieto-occipital encephalomalacia, unchanged. CERVICAL SPINE: No acute fracture or subluxation. Multilevel degenerative disc disease and bilateral facet arthropathy with xtrqejti-xx-kqtheo multilevel bilateral neural foraminal stenosis. Electronically signed by: Angelo Arroyo MD 03/12/2024 02:06 PM EST RP Chest CT 03/12/24 14:29 IMPRESSION: New posterior subpleural right upper lobe lobe nodular consolidation measuring 2 cm. New irregular subpleural nodule right upper lobe measuring 1 cm. Infectious or inflammatory etiologies should be considered. Follow-up imaging in 3 months is advised. Electronically signed by: Drew Villarreal MD 03/12/2024 03:36 PM EST RP
[2024-03-12] MEDS: Albuterol Sulfate 2.5 MG, Albuterol/Iprat 2.5/0.5MG 3 ML 3 ML INHALE (16:26)
[2024-03-12 16:28] VITALS: PULSE 90; RESP 20; O2SAT 95
[2024-03-12 16:42] LABS: VBG Base Excess 1.7 mmol/L; VBG HCO3 28 mmol/L (22-26); VBG pCO2 49 mmHg; VBG pH 7.36 (7.32-7.43); VBG pO2 42 mmHg
--- NOTE | 2024-03-12 17:17 | PHA.MEDREC ---
Pharmacy Consult ? Medication Reconciliation Pharmacy has completed the medication reconciliation. Spoke to pt to confirm meds. They had a med list and family that helped confirm meds.
[2024-03-12 17:40] LABS: Venous Blood Gas Refer to POC result
[2024-03-12 17:57] VITALS: BP 142/77; PULSE 102; RESP 22; O2SAT 96
[2024-03-12] MEDS: oxyCODONE HCl Immed Release 15 MG TABLET 30 MG PO (18:01)
[2024-03-12 21:37] LABS: Glucose, Whole Blood 181 mg/dL (60-115)
[2024-03-12 21:38] VITALS: BP 156/92; PULSE 84; RESP 20; TEMP 36.9; O2SAT 92
[2024-03-12] MEDS: LORazepam 1 MG TABLET PO (21:52)
[2024-03-12] MEDS: carvediloL 6.25 MG TABLET PO (21:52)
[2024-03-12] MEDS: Atorvastatin Calcium 20 MG TABLET PO (21:52)
[2024-03-12] MEDS: carisoprodoL 350 MG TABLET 700 MG PO (21:52)
[2024-03-12] MEDS: glipiZIDE XL 2.5 MG TAB.ER.24 PO (21:53)
[2024-03-12] MEDS: oxyCODONE HCl ER 10 MG TAB.ER.12H 30 MG PO (21:53)
[2024-03-12] MEDS: Insulin Lispro 100 UNIT/ML 3 ML VIAL SUBCUT (22:05)
[2024-03-12] MEDS: guaiFEN/Codeine SF 200/20/10ML 10 ML LIQUID PO (23:14)
[2024-03-13] MEDS: Omeprazole 20 MG CAPSULE.DR PO (05:55)
[2024-03-13 06:00] VITALS: BP 158/78; PULSE 68; RESP 18; TEMP 37; O2SAT 90
--- NOTE | 2024-03-13 06:38 | PC.NURSE ---
pt resting comfortably throughout the night, remains on 2L NC, uses urinal at bedside, rings appropriately.
[2024-03-13 07:29] LABS: Glucose, Whole Blood 169 mg/dL (60-115)
--- NOTE | 2024-03-13 08:05 | MHC.EDTECH ---
pt ate 100 breakfast
--- NOTE | 2024-03-13 08:05 | MHC.EDTECH ---
pt had voided 300ml
[2024-03-13] MEDS: Aspirin Enteric Coated 81 MG TABLET.DR PO (08:53)
[2024-03-13] MEDS: carisoprodoL 350 MG TABLET 700 MG PO (08:53)
[2024-03-13 08:54] VITALS: BP 158/78
[2024-03-13] MEDS: Furosemide 20 MG TABLET PO (08:54)
[2024-03-13] MEDS: Losartan Potassium 50 MG TABLET PO (08:54)
[2024-03-13] MEDS: Clopidogrel Bisulfate 75 MG TABLET PO (08:54)
[2024-03-13] MEDS: allopurinoL 100 MG TABLET 200 MG PO (08:54)
[2024-03-13] MEDS: LORazepam 1 MG TABLET PO (08:54)
[2024-03-13] MEDS: oxyCODONE HCl ER 10 MG TAB.ER.12H 30 MG PO (08:55)
[2024-03-13] MEDS: Insulin Lispro 100 UNIT/ML 3 ML VIAL SUBCUT (08:55)
[2024-03-13 08:56] VITALS: BP 158/78; PULSE 68
[2024-03-13] MEDS: carvediloL 6.25 MG TABLET PO (08:56)
--- NOTE | 2024-03-13 08:59 | PC.NURSE ---
patient a&ox3, vitals previously stable, pt states he previously walked with a cane but has been very weak and unable to walk. pt states he stands to use the urinal while here but is too weak to ambulate. lungs clear/dim rr equal/non labored, pt had 8/10 back pain which is chronic and has medications for. called pharmacy for missing meds, 2L NC baseline at night at home
[2024-03-13] MEDS: glipiZIDE XL 2.5 MG TAB.ER.24 PO (09:11)
--- NOTE | 2024-03-13 10:44 | MHC.EDTECH ---
pt was washed up and had a complete bed change. pt was also assisted to the recliner with physical therapy
[2024-03-13 10:56] VITALS: O2SAT 92
--- NOTE | 2024-03-13 11:02 | MHC.EDTECH ---
pt voided 200ml
--- NOTE | 2024-03-13 11:03 | PC.NURSE ---
pt a&ox3, vss, rr equal non labored/lungs diminished, pt medicated with am meds and with scheduled pain medication for his chronic 8/10 back pain, pt was seen by PT, pt currently oob to recliner chair and is watching tv, call [facility] within reach, will continue plan of care.
[2024-03-13 11:43] LABS: Glucose, Whole Blood 131 mg/dL (60-115)
--- NOTE | 2024-03-13 12:33 | MHC.CM.ED ---
Addendum entered by Tiffany Naik 03/13/24 12:38: [facility] accepted patient. Original Note: Received case management consult overnight. Patient came to the ER due to fall and weakness. Work up essentially negative. Physical therapy eval completed. Short term rehab is recommended. Met with patient, Ysabel, daughter Shonda and grandson. Patient lives with family, uses a cane for mobility and receives [employer] hours. Patient's grandson is his COMMERCIAL PAINTER. PCP verified. Patient has oxygen at home but not Cpap. Patient has never been able to find a Cpap mask that fits his face. Patient was active with [facility] in the past. Patient and family requesting referral to [facility] and for patient to return home. Family will transport patient home. Referral made in [facility]. Alina RUCKER and Magaly SALGUERO aware. Continue to monitor for d/c needs.
--- NOTE | 2024-03-13 12:35 | MHC.EDTECH ---
pt wanted to walk we walked 15 steps 1 assist with a walker
--- NOTE | 2024-03-13 12:43 | MHC.EDTECH ---
pt voided 400ml
--- NOTE | 2024-03-13 12:46 | MHC.EDTECH ---
pt ate 100%lunch
[2024-03-13 13:50] VITALS: BP 101/61; PULSE 92; RESP 20; TEMP 36; O2SAT 91
[2024-03-13 14:07] VITALS: BP 108/68; PULSE 93; RESP 20; TEMP 36.1; O2SAT 92
== END 2024-03-13 14:08 | disposition home or self-care (01) ==
PROVIDERS: Physician Assistant Medical; Emergency Provider Emergency Medicine; PCP Internal Medicine
DX: J44.9 Chronic obstructive pulmonary disease, unspecified (principal); R91.8 Other nonspecific abnormal finding of lung field; R53.1 Weakness; R26.2 Difficulty in walking, not elsewhere classified; R51.9 Headache, unspecified; M54.2 Cervicalgia; Z51.81 Encounter for therapeutic drug level monitoring; Z79.899 Other long term (current) drug therapy; Z03.818 Encounter for observation for suspected exposure to other biological agents ruled out; Z87.891 Personal history of nicotine dependence
CPT/HCPCS: 0241U; 36415; 70450; 71046; 71260; 72125; 80053; 82550; 82803; 82947; 83690; 83735; 83880; 84484; 85025; 85610; 93005; 94640; 96361; 96374; 96375; 97162; 99285; J0696; J2919; Q9967

== ENCOUNTER → 2024-03-12 12:41 | Outpatient (BNV) | payer MEDICARE, MEDICAID, SELFPAY | PROVIDERS: Emergency Provider Emergency Medicine; PCP Internal Medicine; Visit Provider Internal Medicine Cardiovascular Disease | DX: R94.31 Abnormal electrocardiogram [ECG] [EKG] (principal) | CPT/HCPCS: 93010 ==

== ENCOUNTER 2024-03-26 13:54 | Emergency (ER) | payer MEDICARE, MEDICAID, SELFPAY ==
--- NOTE | ~2024-03-26 | XR_ITS ---
EXAMINATION: XR ELBOW, LEFT CLINICAL INFORMATION: fall COMPARISON: None available. TECHNIQUE: Three views of the left elbow. FINDINGS: The bones and soft tissues are normal. No fracture or joint effusion. Alignment is anatomic. Joint spaces are maintained. XR/XR elbow LT min 3V IMPRESSION: Normal left elbow. Electronically signed by: Marek Snyder MD 03/26/2024 04:16 PM EST
--- NOTE | ~2024-03-26 | CT_ITS ---
EXAMINATION: CT HEAD WITHOUT CONTRAST CLINICAL INFORMATION: Head trauma TECHNIQUE: Contiguous axial imaging was performed from the skull base to vertex without intravenous administration of contrast. All CT exams at this location are performed using dose optimization techniques as appropriate to a performed exam including at least one of the following: * Automated exposure control * Adjustment of the mA and/or kV according to patient size (this includes techniques or standardized protocols for targeted exams where dose is matched to indication / reason for exam; i/e/ extremities or head) * Use of iterative reconstructive technique DLP: 721 mGy-cm COMPARISON: 11/11/2022 FINDINGS: Encephalomalacia is again seen within the left posterior parietal/occipital lobe consistent with old ischemic infarct. There is no evidence of acute intracranial hemorrhage, acute large vessel infarct, midline shift or mass effect. The arambula-white differentiation is preserved. Periventricular and subcortical white matter changes seen consistent chronic microvascular ischemic disease. The ventricles and sulci are within normal limits in size and configuration. There is no evidence of hydrocephalus. There are no extraaxial collections. Osseous structures are intact. Paranasal sinuses and mastoid air cells are well aerated. CT/CT head/brain wo IV con IMPRESSION: 1. No acute intracranial pathology. 2. Old left posterior parietal/occipital lobe infarct. Chronic microvascular ischemic changes. Electronically signed by: Conrado Garcia MD 03/26/2024 05:01 PM [facility]
--- NOTE | ~2024-03-26 | XR_ITS ---
EXAMINATION: XR CHEST CLINICAL INFORMATION: weakness COMPARISON: 03/12/2024 and selected prior TECHNIQUE: AP upright view of the chest was obtained. FINDINGS: Stable prominence of the heart and mediastinum. No overt edema. No gross consolidation or effusion. No pneumothorax. Hazy opacity at the right base due to a prominent fat pad. Stable dextroposition of the heart due to rotation. Recent CT with severe emphysema. XR/XR chest 1V IMPRESSION: No acute disease. Emphysema. Pulmonary nodules identified at CT require a CT follow-up in 3 months time Electronically signed by: Steven Najera MD 03/26/2024 05:02 PM [facility]
[2024-03-26 14:08] VITALS: BP 132/78; PULSE 100; O2SAT 89
[2024-03-26 14:17] VITALS: BP 101/45; PULSE 84; RESP 18; TEMP 36.7; O2SAT 92; BMI 33.9
--- NOTE | 2024-03-26 14:26 | ECG_ITS ---
Test Reason : fall Blood Pressure : / mmHG Vent. Rate : 083 BPM Atrial Rate : 083 BPM P-R Int : 184 ms QRS Dur : 074 ms QT Int : 390 ms P-R-T Axes : 052 011 038 degrees QTc Int : 458 ms Normal sinus rhythm Low voltage QRS Septal infarct (cited on or before 12-MAR-2024) Abnormal ECG When compared with ECG of 12-MAR-2024 14:02, No significant change was found Referred By: Nicole Marcano Electronically Signed By:Edison Graham
[2024-03-26] MEDS: Albuterol Sulfate 2.5 MG, Albuterol/Iprat 2.5/0.5MG 3 ML 3 ML INHALE (14:48)
[2024-03-26 14:49] VITALS: PULSE 85; RESP 18; O2SAT 90
--- NOTE | 2024-03-26 14:56 | ED_ITS ---
HPI - Fall General Chief Complaint: Fall Stated Complaint: SAHARA FALL, SKIN TEAR L ELBOW PER EMS Time Seen by Provider: 03/26/24 14:21 Source: patient, family, EMS and old records reviewed Mode of arrival: EMS Limitations: no limitations History of Present Illness ED Provider: JUAN WALLACE Narrative: 79 yo male with PMH of COPD on home O2 PRN, cardiomyopathy EF 30-35%, KAREN, obesity, UTI, CVA R sided hemiparesis on plavix, UTI, DM, CKD, just seen here on 03/13 for fall and sent home with VNA he comes in today with c/o losing his balance while urinating. Fell at 130pm today, denies headstrike, LOC, has skin tear to L elbow. He states he was able to get right up. He denies CP/SOB, LOC, n/v/d, fevers or any other complaints. He seems not fazed or concerned about the situation. notes since he left here he has fallen 3 to 4 times. PT did come to the house once. He uses a cane mostly but has a walker MD complaint: fall Onset (ago): week(s) Fall from: standing Fall witnessed: no Place fall occurred: home Loss of consciousness: none Prolonged down time: no Symptoms prior to fall: none Context: history of frequent falls Location of injury - extremities: left: elbow Severity: moderate Quality: dull and aching Associated symptoms (after fall): denies Related Data Home Medications ?Medication ?Instructions ?Recorded ?Confirmed allopurinol 100 mg tablet 2 tab PO DAILY 11/09/20 03/12/24 carisoprodol 350 mg tablet 2 tab PO TID 11/09/20 03/12/24 glipizide 2.5 mg tablet, extended 1 tab PO BID 11/09/20 03/12/24 release 24 hr omeprazole 20 mg capsule,delayed 1 cap PO DAILY@0630 11/09/20 03/12/24 release furosemide 20 mg tablet 20 mg PO DAILY 08/19/22 03/12/24 omega 0-opv-ltg-fish oil 1,000 mg 1 cap PO DAILY 12/09/22 03/12/24 (120 mg-180 mg) capsule (Fish Oil) oxycodone 20 mg tablet,crush 20 mg PO DAILY@1500 12/09/22 03/12/24 resistant,extended release 12 hr (OxyContin) clopidogrel 75 mg tablet 75 mg PO DAILY 03/26/23 03/12/24 simvastatin 40 mg tablet 40 mg PO BEDTIME 03/26/23 03/12/24 losartan 50 mg tablet 50 mg PO DAILY 11/15/23 03/12/24 ondansetron 4 mg disintegrating 4 mg PO Q8H PRN Nausea And Vomiting 11/15/23 03/12/24 tablet Previous Rx's ?Medication ?Instructions ?Recorded aspirin 81 mg tablet,delayed 81 mg PO DAILY #30 tabs 11/11/22 release lorazepam 1 mg tablet 1 mg PO TID #4 tabs 11/11/22 oxycodone 30 mg tablet,crush 30 mg PO BID #4 tabs 11/11/22 resistant,extended release 12 hr (OxyContin) fluticasone fur. 100 mcg-umeclid 1 ea PO DAILY #60 ea 06/16/23 62.5 mcg-vilant 25 mcg inhalat.powder (Trelegy Ellipta) dapagliflozin propanediol 10 mg 10 mg PO DAILY 90 days #90 tabs 10/08/23 tablet (Farxiga) carvedilol 6.25 mg tablet 6.25 mg PO BID #180 tabs 03/13/24 Allergies Allergy/AdvReac Type Severity Reaction Status Date / Time adhesive Allergy Severe Rash Verified 03/26/24 14:18 morphine [MORPHINE] Allergy Severe NAUSEA Verified 03/26/24 14:18 codeine [CODEINE] Allergy Intermediate RASH Verified 03/26/24 14:18 ibuprofen [From MOTRIN] Allergy Unknown told to Verified 03/26/24 14:18 avoid due to kidneys Review of Systems 2 Review of Systems: Constitutional : No Fever, No Chills, No Fatigue ENT/Mouth : No sore throat, No Rhinorrhea Eyes: No Eye Pain, No Swelling, No Redness Cardiovascular : No Chest Pain, No SOB, No Dyspnea on Exertion Respiratory : No Cough, No Sputum Gastrointestinal : No Nausea, No Vomiting, No Diarrhea, No abdominal Pain Genitourinary : No Dysuria, No Urinary Frequency, No Hematuria, Musculoskeletal : No joint pain, No Myalgias, No Joint Swelling Skin : No Skin Lesions, No rash, pos abrasion Neuro : No Weakness, No Numbness, No Dizziness, no Headache All other systems reviewed and are negative PMFSH Past Medical History Attestation statement: The following information was validated with the patient. Source: old records reviewed Medical History Carotid stenosis, right TIA (transient ischemic attack) Chronic renal failure (CRF), stage 3 (moderate) LBBB (left bundle branch block) Cardiomyopathy CHF (congestive heart failure) Chronic back pain Sleep apnea Oxygen dependent Lung nodule CVA (cerebral vascular accident) Surgical History History of lithotripsy History of vasectomy History of back surgery Family History Family History Father Cirrhosis Mother Myocardial infarction Enlarged heart Sister No problems noted. Sister No problems noted. Social History Social History Household Members: Spouse Household Members Other:: 8 Housing: House Do you presently have visiting nurse or other home services: No (not at present, services will restart later this month.) Alcohol intake: former Year quit: 1979 Patient Tobacco Use Status: Former Tobacco user Tobacco use type: Cigarette Years Smoked: ~20 e-Cigarette/Vaping Use: Never Used Advance Directives: Yes Advance Directives on File: Yes Advance Directives Date on File: 03/27/23 Do you have a plan to hurt others: No Plan service: Yes Current occupational status: retired Physical Exam 2 Vital Signs: Vital Signs: Last Vital Signs Temp 98.0 F 03/26/24 14:17 Pulse 81 03/26/24 15:45 Resp 18 03/26/24 15:45 BP 129/64 03/26/24 15:45 Pulse Ox 95 03/26/24 15:45 O2 Del Method Nasal Cannula 03/26/24 15:45 O2 Flow Rate 3 03/26/24 15:45 Oxygen Flow Rate 2 03/26/24 14:17 BMI result Body Mass Index 33.9 Appearance: Alert. Oriented X3. No acute distress. Eyes: Pupils equal, round and reactive to light. ENT: Pharynx normal. atraumatic Neck: Normal inspection. Neck supple. CVS: Normal heart rate and rhythm. Pulses normal. Respiratory: No respiratory distress. Breath sounds coarse Abdomen: Soft and non-tender. Skin: Skin warm and dry. Normal skin color. Normal skin turgor. Extremities: No lower extremity edema. L elbow superficial skin tears no bleeding Neuro: Oriented X 3. No motor deficit. No sensory deficit. Course Course Course Narrative: signed out to Dr. Jacobsen pending work up Reevaluation(s) Reevaluation #1: refusing IV fluids at this time despite discussing dehydration Medications Administered Discontinued Medications Generic Name Dose Route Start Last Admin Trade Name Freq PRN Reason Stop Dose Admin Albuterol Sulfate 2.5 mg/ 0 mg 03/26/24 14:46 03/26/24 14:48 Albuterol/Ipratropium 3 ml INHALE 03/26/24 14:47 1 dose ONCE ONE Administration Oxycodone HCl 20 mg 03/26/24 16:02 03/26/24 16:06 Oxycodone Hcl Er 10 Mg Tab.Er.12h PO 03/26/24 16:03 20 mg ONCE ONE Administration Medical Decision Making Medical Decision Making [facility] Narrative: 79 yo male with PMH of COPD on home O2 PRN, cardiomyopathy EF 30-35%, KAREN, obesity, UTI, CVA R sided hemiparesis on plavix, UTI, DM, CKD here with c/o recurrent falls since last DC 03/13 today fell while urinating they deny headstrike and grandson was right there no LOC. He states he falls a lot but no new CP/SOB and no focal deficits. The patient states he doesn't want to go to rehab. No symptoms to suggest ACS, VTE, GIB, denies infectious symptoms. at bedside no additional information same as patient she confirms no LOC Differential Diagnosis Differential Diagnoses: The differential diagnosis associated with the presentation includes dehydration, anemia, abrasion, recurrent falls Admission/Observation Consideration of admission/observation: Escalation of care including admission/observation considered has stated he does not want to go to rehab gentle fluids ordered for dehydration Lab Data [facility] Lab Attestation statement: I reviewed the patient's lab results. 03/26/24 15:25 03/26/24 15:25 Labs: Lab Results 03/26/24 Range/Units 15:25 WBC 8.5 (4.8-10.8) X10*3/uL RBC 4.56 L (4.60-5.80) X10*6/uL Hgb 14.6 (14.0-18.0) g/dl Hct 45.6 (42.0-52.0) % MCV 100.0 H (80.0-98.0) fL MCH 32.0 (27.0-33.0) pg MCHC 32.0 (31.0-36.0) g/dl RDW 14.5 (11.0-16.0) % Plt Count 148 L (160-400) X10*3/uL MPV 10.8 (9.4-12.4) fL Immature Gran % (Auto) 0.8 H (0.0-0.4) % Neut % (Auto) 60.8 (45-73) % Lymph % (Auto) 14.7 L (20-40) % Henry % (Auto) 8.4 (2-11) % Eos % (Auto) 14.7 H (0-4) % Baso % (Auto) 0.6 (0-2) % Lymph # (Auto) 1.3 (1.2-4.9) X10*3/uL Henry # (Auto) 0.7 (0.1-1.2) X10*3/uL Eos # (Auto) 1.3 H (0.0-0.4) X10*3/uL Baso # (Auto) 0.1 (0.0-0.2) X10*3/uL Abs Immat Gran (auto) 0.07 H (0.00-0.03) X10*3/uL Absolute Neuts (auto) 5.2 (2.0-8.3) x10*3/uL Absolute Nucleated RBC 0.000 (0.0-0.012) X10*3/uL Nucleated RBC % (auto) 0.0 (0.0-0.2) /100WBC Sodium 142 (135-145) mmol/L Potassium 5.0 (3.3-5.1) mmol/L Chloride 106 (96-108) mmol/L Carbon Dioxide 27 (22-29) mmol/L Anion Gap 14 (12-20) BUN 40 H (9-16) mg/dL Creatinine 1.96 H (0.5-1.4) mg/dL Estim Creat Clear Calc 41.0 Estimated GFR 33 Random Glucose 110 (60-115) mg/dL Calcium 9.0 (8.4-10.2) mg/dL Magnesium 2.2 (1.6-2.6) mg/dL Total Bilirubin 0.5 (0.0-1.0) mg/dL Direct Bilirubin 0.2 (0.0-0.5) mg/dL AST 27 (5-37) U/L ALT 28 (0-40) U/L Alkaline Phosphatase 182 H (39-117) U/L Troponin I High Sens 8.3 (<3.5-35.0) ng/L B-Natriuretic Peptide 71 (<100) pg/mL Total Protein 6.8 (6.5-8.0) g/dL Albumin 3.8 (3.5-5.0) g/dL Lipase 17 (8-78) U/L Influenza Type A (PCR) NEGATIVE (Negative) Influenza Type B (PCR) NEGATIVE (Negative) RSV RNA Qual (PCR) NEGATIVE (Negative) SARS-CoV-2 RNA (RT-PCR) NEGATIVE (Negative) Independent Interpretation I performed an independent interpretation of an: EKG and Plain X-Ray Interpretation: Rate: 83 Rhythm: NSR [place]: normal Normal P waves. Normal HECTOR. Normal QRS complex. ST T wave : normal no KYLE qTC:458 prior studies: no acute ischemia The study has been interpreted contemporaneously by me. . Radiology Impression Discussion of test interpretation with radiology: I have reviewed the radiologist's reading. Independent Historian Clinical information obtained from an independent historian. History obtained from or confirmed by: Spouse and EMS External Record Review External record reviewed: Inpatient record and Outpatient record Discharge Plan Discharge Clinical Impression: Recurrent falls, Skin tear of left upper extremity, Acute dehydration Patient Disposition: Still a Patient Prescriptions: No Action Trelegy Ellipta 100-62.5-25 mcg blister with device 1 ea PO DAILY Qty: 60 0RF Farxiga 10 mg tablet 10 mg PO DAILY 90 Days Qty: 90 3RF carvedilol 6.25 mg tablet 6.25 mg PO BID Qty: 180 0RF carisoprodol 350 mg tablet 2 tab PO TID allopurinol 100 mg tablet 2 tab PO DAILY glipizide 2.5 mg tablet extended release 24hr 1 tab PO BID omeprazole 20 mg capsule,delayed release(DR/EC) 1 cap PO DAILY@0630 oxycodone [OxyContin] 20 mg tablet,oral only,ext.rel.12 hr 20 mg PO DAILY@1500 omega 4-exo-ejn-fish oil [Fish Oil] 1,000 mg (120 mg-180 mg) Capsule 1 cap PO DAILY clopidogrel 75 mg tablet 75 mg PO DAILY simvastatin 40 mg tablet 40 mg PO BEDTIME aspirin 81 mg Tablet,Delayed Release (Dr/Ec) 81 mg PO DAILY Qty: 30 0RF lorazepam 1 mg tablet 1 mg PO TID Qty: 4 0RF oxycodone [OxyContin] 30 mg tablet,oral only,ext.rel.12 hr 30 mg PO BID Qty: 4 0RF furosemide 20 mg tablet 20 mg PO DAILY losartan 50 mg tablet 50 mg PO DAILY ondansetron 4 mg tablet,disintegrating 4 mg PO Q8H PRN (Reason: Nausea And Vomiting) Print Language: Bulgarian
[2024-03-26 15:30] LABS: Basophils Absolute Auto 0.1 X10*3/uL (0.0-0.2); Basophils Percent Auto 0.6 % (0-2); Eosinophils Absolute Auto 1.3 X10*3/uL (0.0-0.4); Eosinophils Percent Auto 14.7 % (0-4); Hematocrit 45.6 % (42.0-52.0); Hemoglobin 14.6 g/dl (14.0-18.0); Imm Gran Abs Auto 0.07 X10*3/uL (0.00-0.03); Imm Gran Pct Auto 0.8 % (0.0-0.4); Lymphocytes Absolute Auto 1.3 X10*3/uL (1.2-4.9); Lymphocytes Percent Auto 14.7 % (20-40); MANUAL DIFF FLAG NO; Mean Platelet Volume 10.8 fL (9.4-12.4); Monocytes Absolute Auto 0.7 X10*3/uL (0.1-1.2); Monocytes Percent Auto 8.4 % (2-11); Neutrophils Absolute Auto 5.2 x10*3/uL (2.0-8.3); Neutrophils Percent Auto 60.8 % (45-73); Platelet Count 148 X10*3/uL (160-400); Red Blood Count 4.56 X10*6/uL (4.60-5.80); Red Cell Distribution Width 14.5 % (11.0-16.0); White Blood Count 8.5 X10*3/uL (4.8-10.8)
[2024-03-26 15:45] VITALS: BP 129/64; PULSE 81; RESP 18; O2SAT 95
[2024-03-26 15:47] LABS: Alanine Aminotransferase 28 U/L (0-40); Albumin Level 3.8 g/dL (3.5-5.0); Alkaline Phosphatase 182 U/L (39-117); Anion Gap 14 (12-20); Aspartate Amino Transferase 27 U/L (5-37); Bilirubin Direct 0.2 mg/dL (0.0-0.5); Bilirubin Total 0.5 mg/dL (0.0-1.0); Blood Urea Nitrogen 40 mg/dL (9-16); Carbon Dioxide 27 mmol/L (22-29); Chloride 106 mmol/L (96-108); Estimated Glomerular Filt Rate 33; Glucose Random 110 mg/dL (60-115); Lipase 17 U/L (8-78); Magnesium 2.2 mg/dL (1.6-2.6); Sodium 142 mmol/L (135-145); Total Protein 6.8 g/dL (6.5-8.0)
[2024-03-26 15:50] LABS: B Type Natriuretic Peptide 71 pg/mL (<100)
[2024-03-26 15:53] LABS: Troponin-I High Sensitivity 8.3 ng/L (<3.5-35.0)
[2024-03-26 16:06] LABS: Influenza A PCR NEGATIVE (Negative); Influenza B PCR NEGATIVE (Negative); Resp Syncy Virus RNA Qual PCR NEGATIVE (Negative); SARS COV2 PCR INHOUSE NEGATIVE (Negative)
[2024-03-26] MEDS: oxyCODONE HCl ER 10 MG TAB.ER.12H 20 MG PO (16:06)
[2024-03-26] MEDS: 0.9 % Sodium Chloride 500 ML IV (16:16)
[2024-03-26 16:54] VITALS: BP 126/56; BP 127/69; BP 140/62; PULSE 62; PULSE 88; PULSE 89
[2024-03-26 17:06] LABS: Color Urine Yellow; Glucose Urine UA 500 mg/dL (Negative); Leukocyte Esterase Urine Negative (Negative); Nitrite Urine Negative (Negative); Specific Gravity - Urine 1.015 (1.005-1.025); Urine Blood Negative (Negative); Urine Ketones Negative (Negative); Urine Protein Negative (Neg-Trace)
[2024-03-26 17:07] LABS: Appearance Urine Clear
[2024-03-26 18:41] VITALS: BP 126/56; PULSE 88; RESP 18; TEMP 36.9; O2SAT 96
== END 2024-03-26 18:42 | disposition home or self-care (01) ==
PROVIDERS: Emergency Medicine; Emergency Provider Internal Medicine
DX: S41.112A Laceration without foreign body of left upper arm, initial encounter (principal); M25.522 Pain in left elbow; E86.0 Dehydration; R94.31 Abnormal electrocardiogram [ECG] [EKG]; R51.9 Headache, unspecified; J44.9 Chronic obstructive pulmonary disease, unspecified; Z99.81 Dependence on supplemental oxygen; W01.0XXA Fall on same level from slipping, tripping and stumbling without subsequent striking against object, initial encounter; R06.02 Shortness of breath; Y93.89 Activity, other specified; Y92.89 Other specified places as the place of occurrence of the external cause; Y99.8 Other external cause status; Z91.81 History of falling; Z79.899 Other long term (current) drug therapy; Z79.01 Long term (current) use of anticoagulants; Z87.891 Personal history of nicotine dependence; Z03.818 Encounter for observation for suspected exposure to other biological agents ruled out
CPT/HCPCS: 0241U; 70450; 71045; 73080; 80048; 80076; 81003; 83690; 83735; 83880; 84484; 85025; 93005; 94640; 96365; 99285

== ENCOUNTER → 2024-03-26 14:26 | Outpatient (BNV) | payer MEDICARE, MEDICAID, SELFPAY | PROVIDERS: Emergency Provider Internal Medicine; Visit Provider Internal Medicine Cardiovascular Disease | DX: R94.31 Abnormal electrocardiogram [ECG] [EKG] (principal) | CPT/HCPCS: 93010 ==

== ENCOUNTER 2024-04-11 11:10 | Outpatient (AMB) | payer MEDICARE, MEDICAID, SELFPAY ==
[2024-04-11 11:12] VITALS: BP 136/80; PULSE 100; O2SAT 93; BMI 34.9
--- NOTE | 2024-04-11 11:12 | HO.NEPHOV_ITS ---
Vital Signs 04/11/24 11:12 Height 5 ft 11 in Weight 250 lb BMI 34.9 BP 136/80 Blood Pressure Location Rt brachial Position Sitting Pulse 100 Pulse Source Pulse Oximeter Pulse Oximetry (%) 93 Oxygen Delivery Method Room Air Intake Visit Reasons: Kidney function follow up/ Conf [employer] Of [employer] Hearing Impaired Required: No Accompanied by: Spouse Allergies adhesive Allergy (Severe, Verified 04/11/24 11:12) Rash morphine [MORPHINE] Allergy (Severe, Verified 04/11/24 11:12) NAUSEA codeine [CODEINE] Allergy (Intermediate, Verified 04/11/24 11:12) RASH ibuprofen [From MOTRIN] Allergy (Unknown, Verified 04/11/24 11:12) told to avoid due to kidneys Medication List - Last Reconciled 04/11/24 by Eddie Marsh MD allopurinol 2 tabs PO DAILY aspirin 81 mg PO DAILY carisoprodol 2 tabs PO TID carvedilol 6.25 mg PO BID clopidogrel 75 mg PO DAILY dapagliflozin propanediol (Farxiga) 10 mg PO DAILY 90 days zeypuazqmie-dqfkchkdp-vzewnunc 100-62.5-25 mcg (Trelegy Ellipta) 1 ea PO DAILY furosemide 20 mg PO DAILY glipizide ER 1 tab PO BID lorazepam 1 mg PO TID losartan 50 mg PO DAILY omega 8-nab-nbi-fish oil 1,000 (120-180) mg (Fish Oil) 1 cap PO DAILY omeprazole 1 cap PO DAILY@0630 ondansetron 4 mg PO Q8H PRN oxycodone ER (OxyContin) 30 mg PO BID oxycodone ER (OxyContin) 20 mg PO DAILY@1500 simvastatin 40 mg PO BEDTIME HPI Comments Details: 78 yr old man with 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 Sister No problems noted. Social History Household Members: Spouse Household Members Other:: 8 Housing: House Do you presently have visiting nurse or other home services: No (not at present, services will restart later this month.) Alcohol intake: former Year quit: 1979 Patient Tobacco Use Status: Former Tobacco user Tobacco use type: Cigarette Years Smoked: ~20 e-Cigarette/Vaping Use: Never Used Advance Directives Date on File: 03/27/23 service: Yes Current occupational status: retired Physical Exam Vital Signs: Last Vital Signs Pulse 100 04/11/24 11:12 BP 136/80 04/11/24 11:12 Pulse Ox 93 04/11/24 11:12 Oxygen Delivery Method Room Air 04/11/24 11:12 BMI result Body Mass Index 34.9 Comfortable Neck supple no JVD. Lungs entry equal no rales. Heart S1-S2 heard no gallop or rub. Abdomen soft nontender. Neuro alert awake oriented. No asterixis. Extremities no edema. Results Reviewed Nephrology Results: Hgb 14.6 g/dl (14.0-18.0) 03/26/24 WBC 8.5 X10*3/uL (4.8-10.8) 03/26/24 Plt Count 148 X10*3/uL (160-400) L 03/26/24 Sodium 142 mmol/L (135-145) 03/26/24 Potassium 5.0 mmol/L (3.3-5.1) 03/26/24 Chloride 106 mmol/L (96-108) 03/26/24 Carbon Dioxide 27 mmol/L (22-29) 03/26/24 BUN 40 mg/dL (9-16) H 03/26/24 Creatinine 1.96 mg/dL (0.5-1.4) H 03/26/24 Calcium 9.0 mg/dL (8.4-10.2) 03/26/24 Urine Protein Negative mg/dL (Neg-Trace) 03/26/24 Urine Creatinine 112.84 mg/dL 03/01/24 Assessment & Plan Assessment & Plan (1) Chronic renal failure (CRF), stage 3 (moderate): Code(s): N18.30 - Chronic kidney disease, stage 3 unspecified Category: Medical Plan Due to IGA nephropathy s/p super imposed MARICHUY due to dehydration in a setting of diarrhea Renal fx has improved Watch BP at home Avoid nephrotoxins/NSAIDS Recheck labs today Orders: Orders Basic Metabolic Panel Today N18.30 - Chronic kidney disease, stage 3 unspecified Complete Blood Count no Diff Today N18.30 - Chronic kidney disease, stage 3 unspecified Coding Level of Care Code Est Pt Level 4 (56412) Diagnoses Chronic renal failure (CRF), stage 3 (moderate) N18.30
--- OUTSIDE RECORDS SUMMARY | 2024-04-11 11:27 | XMS_ITS | Clinical Summary ---
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 Revising Clerk Name Role Phone MARY JANE MELENDREZ, OSMAN Unavailable Unavailable TITA RN, CONCEPCION Unavailable Unavailable ANUPAM WHEEL AND AXLE INSPECTOR, FINA Unavailable Unavailab dennis MELENDEZ LPN, MALA Unavailable Surinder DOAN PT, JS Unavailable Unavailable Payers Payer Name Policy Type Policy Number Effective Date Expira tion Date MEDICARE - [facility] - [facility] [id number] MEDICAID [facility] [id number] Problems Condition Name Condition Details Condition Category Status Onset Date Resolution Date Last Treatment Date Treating Clinician Comments CHRONIC OBSTRUCTIVE PULMONARY DISEASE, UNSPECIFIED Active 04-26 00:00: 00 TYPE 2 DIABETES MELLITUS W DIABETIC CHRONIC KIDNEY DISEASE Active 04-26 00:00: 00 CHRONIC KIDNEY DISEASE, STAGE 3 UNSPECIFIED Active 04-26 00:00: 00 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 Active 04-26 00:00: 00 HEART FAILURE, UNSPECIFIED Active 04-26 00:00: 00 CARDIOMYOPAT HY, UNSPECIFIED Active 04-26 00:00: 00 LEFT BUNDLE-BRANC H BLOCK, UNSPECIFIED Active 04-26 00:00: 00 OTHER CHRONIC PAIN Active 04-26 00:00: 00 DORSALGIA, UNSPECIFIED Active 04-26 00:00: 00 OBSTRUCTIVE SLEEP APNEA (ADULT) (PEDIATRIC) Active 04-26 00:00: 00 OBESITY, UNSPECIFIED Active 04-26 00:00: 00 BODY MASS INDEX [BMI] 31.0-31.9, ADULT Active 04-26 00:00: 00 SOLITARY PULMONARY NODULE Active 04-26 00:00: 00 COUTURE DRESSMAKER (CURRENT) USE OF ASPIRIN Active 04-26 00:00: 00 SHELTER (CURRENT) USE OF ORAL HYPOGLYCEMIC DRUGS Active 04-26 00:00: 00 COUTURE DRESSMAKER (CURRENT) USE OF ANTITHROMBOT ICS/ANTIPLAT ELETS Active 04-26 00:00: 00 SHELTER (CURRENT) USE OF INHALED STEROIDS Active 04-26 00:00: 00 DEPENDENCE ON SUPPLEMENTAL OXYGEN Active 04-26 00:00: 00 Problems related to health literacy Active 04-26 00:00: 00 PERSONAL HISTORY OF NICOTINE DEPENDENCE Active 04-26 00:00: 00 PERSONAL HISTORY OF URINARY (TRACT) INFECTIONS Active 04-26 00:00: 00 HISTORY OF FALLING Active 04-26 00:00: 00 Allergies, Adverse Reactions, Alerts Allergy Name Allergy Type Status Severity Reaction(s) Onset Date Inactive Date Treating Clinician Comments CODEINE Propensity to adverse reactions Active 2024-02 19:11:4 2 MORPHINE Propensity to adverse reactions Active 2024-02 19:11:5 5 Medications Ordered Medication Name Filled Medication Name Start Date Stop Date Current Medication? Ordering Clinician Indication Dosage Frequency Signature (SIG) Comments Components carisoprodo l 350 mg tablet 11-12 00:00: 00 11-28 00:00 :00 No [id number] Per instruc tions THREE TIMES DAILY Per instructio ns THREE TIMES DAILY (route: oral) Med Classific ation: Locomotor System carvedilol 3.125 mg tablet 11-10 00:00: 00 03-15 00:00 :00 No [id number] 1 tablet TWICE DAILY 1 tablet TWICE DAILY (route: oral) Med Classific ation: Cardiovas cular Therapy Agents Jardiance 10 mg tablet 11-10 00:00: 00 03-15 00:00 :00 No [id number] 1 tablet DAILY 1 tablet DAILY (route: oral) Med Classific ation: Endocrine OxyContin 20 mg tablet,david h resistant,e xtended release 11-05 00:00: 00 03-15 00:00 :00 No [id number] Unavailable Per instruc tions EVERY Per instructio ns EVERY (route: oral) Med Classific ation: Analgesic , Anti-infl ammatory or Antipyret ic OxyContin 30 mg tablet,david h resistant,e xtended release 7-13 00:00: 00 03-15 00:00 :00 No [id number] Unavailable Per instruc tions EVERY EVERY Per instructio ns EVERY EVERY (route: oral) Med Classific ation: Analgesic , Anti-infl ammatory or Antipyret ic Ventolin HFA 90 mcg/actuati on aerosol inhaler 7-06 00:00: 00 03-15 00:00 :00 No [id number] Per instruc tions INTO THE LUNGS EVERY 3 HOURS NEEDED Per instructio ns INTO THE LUNGS EVERY 3 HOURS NEEDED (route: inhalation ) Med Classific ation: Respirato ry Therapy Agents lorazepam 1 mg tablet 629 00:00: 00 03-15 00:00 :00 No [id number] 1 tablet THREE TIMES DAILY 1 tablet THREE TIMES DAILY (route: oral) Med Classific ation: Central Nervous System Agents carisoprodo l 350 mg tablet 6 00:00: 00 03-15 00:00 :00 No [id number] 1 tablet THREE TIMES DAILY 1 tablet THREE TIMES DAILY (route: oral) Med Classific ation: Locomotor System allopurinol 100 mg tablet 805 00:00: 00 03-15 00:00 :00 No [id number] 2 tablet DAILY 2 tablet DAILY (route: oral) Med Classific ation: Gout and Hyperuric emia Therapy aspirin 81 mg tablet,rene yed release 805 00:00: 00 03-15 00:00 :00 No [id number] 1 tablet DAILY 1 tablet DAILY (route: oral) Med Classific ation: Hematolog ical Agents atorvastati n 80 mg tablet 8-05 00:00: 00 03-15 00:00 :00 No [id number] 1 tablet BEDTIME 1 tablet BEDTIME (route: oral) Med Classific ation: Cardiovas cular Therapy Agents cefpodoxime 100 mg tablet 11-28 00:00: 00 12-01 23:59 :00 No [id number] 1 tablet 2 TIMES DAILY 1 tablet 2 TIMES DAILY (route: oral) Med Classific ation: Anti-Infe ctive Agents clopidogrel 75 mg tablet 11-28 00:00: 00 03-15 00:00 :00 No [id number] 1 tablet DAILY 1 tablet DAILY (route: oral) Med Classific ation: Hematolog ical Agents glipizide ER 2.5 mg tablet, extended release 24 hr 11-28 00:00: 00 03-15 00:00 :00 No [id number] 1 tablet 2 TIMES DAILY 1 tablet 2 TIMES DAILY (route: oral) Med Classific ation: Endocrine Mucinex 600 mg tablet, extended release 11-28 00:00: 00 12-07 23:59 :00 No [id number] 1 tablet 2 TIMES DAILY 1 tablet 2 TIMES DAILY (route: oral) Med Classific ation: Respirato ry Therapy Agents omeprazole 20 mg capsule,del ayed release 11-28 00:00: 00 03-15 00:00 :00 No [id number] 1 capsule DAILY 1 capsule DAILY (route: oral) Med Classific ation: Gastroint estinal Therapy Agents tamsulosin 0.4 mg capsule 11-28 00:00: 00 03-15 00:00 :00 No [id number] 1 capsule DAILY 1 capsule DAILY (route: oral) Med Classific ation: Genitouri nary Therapy torsemide 20 mg tablet 11-28 00:00: 00 03-15 00:00 :00 No [id number] 0.5 tablet DAILY 0.5 tablet DAILY (route: oral) Med Classific ation: Cardiovas cular Therapy Agents OXYGEN 11-28 00:00: 00 Yes [id number] 2 Liter O2 - CONTINUOUS 2 Liter O2 - CONTINUOUS (route: Oxygen) Med Classific ation: Medical Oxygen allopurinol 100 mg tablet 2023-04 00:00: 00 Yes [id number] 2 tablet DAILY 2 tablet DAILY (route: oral) Med Classific ation: Gout and Hyperuric emia Therapy aspirin 81 mg tablet,rene yed release 2023-04 00:00: 00 Yes [id number] 1 tablet DAILY 1 tablet DAILY (route: oral) Med Classific ation: Hematolog ical Agents carisoprodo l 350 mg tablet 2023-04 00:00: 00 Yes [id number] 2 tablet 3 TIMES DAILY 2 tablet 3 TIMES DAILY (route: oral) Med Classific ation: Locomotor System carvedilol 6.25 mg tablet 2023-04 00:00: 00 Yes [id number] 1 tablet 2 TIMES DAILY 1 tablet 2 TIMES DAILY (route: oral) Med Classific ation: Cardiovas cular Therapy Agents clopidogrel 75 mg tablet 2023-04 00:00: 00 Yes [id number] 1 tablet DAILY 1 tablet DAILY (route: oral) Med Classific ation: Hematolog ical Agents Farxiga 10 mg tablet 2023-04 00:00: 00 Yes [id number] 1 tablet DAILY 1 tablet DAILY (route: oral) Med Classific ation: Endocrine Fish Oil 1,000 mg (120 mg-180 mg) capsule 2023-04 00:00: 00 Yes [id number] 1 capsule DAILY 1 capsule DAILY (route: oral) Med Classific ation: Cardiovas cular Therapy Agents furosemide 20 mg tablet 2023-04 00:00: 00 Yes [id number] 1 tablet DAILY 1 tablet DAILY (route: oral) Med Classific ation: Cardiovas cular Therapy Agents glipizide 2.5 mg tablet 2023-04 00:00: 00 Yes [id number] 1 tablet 2 TIMES DAILY 1 tablet 2 TIMES DAILY (route: oral) Med Classific ation: Endocrine lorazepam 1 mg tablet 2023-04 00:00: 00 Yes [id number] 1 tablet 3 TIMES DAILY 1 tablet 3 TIMES DAILY (route: oral) Med Classific ation: Central Nervous System Agents losartan 50 mg tablet 2023-04 00:00: 00 Yes [id number] 1 tablet DAILY 1 tablet DAILY (route: oral) Med Classific ation: Cardiovas cular Therapy Agents omeprazole 20 mg capsule,del ayed release 2023-04 00:00: 00 Yes [id number] 1 capsule DAILY 1 capsule DAILY (route: oral) Med Classific ation: Gastroint estinal Therapy Agents ondansetron HCl 4 mg tablet 2023-04 00:00: 00 Yes [id number] 1 tablet EVERY 8 HOURS 1 tablet EVERY 8 HOURS (route: oral) Med Classific ation: Gastroint estinal Therapy Agents oxycodone 20 mg tablet 2023-04 00:00: 00 Yes [id number] 1 tablet DIRECTED 1 tablet DIRECTED (route: oral) Med Classific ation: Analgesic , Anti-infl ammatory or Antipyret ic OxyContin 30 mg tablet,david h resistant,e xtended release 2023-04 00:00: 00 Yes [id number] 1 tablet 2 TIMES DAILY 1 tablet 2 TIMES DAILY (route: oral) Med Classific ation: Analgesic , Anti-infl ammatory or Antipyret ic simvastatin 40 mg tablet 2023-04 00:00: 00 Yes [id number] 1 tablet BEDTIME 1 tablet BEDTIME (route: oral) Med Classific ation: Cardiovas cular Therapy Agents Trelegy Ellipta 100 mcg-62.5 mcg-25 mcg powder for inhalation 2023-04 00:00: 00 Yes [id number] 1 inhalat ion DAILY 1 inhalation DAILY (route: inhalation ) Med Classific ation: Respirato ry Therapy Agents Immunizations Ordered Immunization Name Filled Immunization Name Date Status Comments Refusal Reason COVID-19, COVID-19 2024-03-16 00:00:00 INFLUENZA, TIV (INACTIVATED) 2023-04-26 00:00:00 Vital Signs Vital Name Observation Time Observation Value Commen ts Temperature 2024-03-31 11:31:00.000 98.2 [degF] Temperature 2024-03-29 19:45:00.000 98 [degF] Temperature 2024-03-22 14:50:00.000 97 [degF] Temperature 2024-03-20 16:15:00.000 98.5 [degF] Temperature 2024-03-15 12:15:00.000 97.9 [degF] BMI (%) 2024-03-15 12:15:00.000 31 kg/m2 Height 2024-03-15 12:15:00.000 72 [in_us] Pulse 2024-03-31 11:31:00.000 63 /min Pulse 2024-03-29 19:45:00.000 70 /min Pulse 2024-03-22 14:50:00.000 70 /min Pulse 2024-03-20 16:15:00.000 75 /min Pulse 2024-03-15 12:15:00.000 79 /min O2 Saturation (%) 2024-03-31 11:31:00.000 91 % O2 Saturation (%) 2024-03-29 19:45:00.000 97 % O2 Saturation (%) 2024-03-22 14:50:00.000 93 % O2 Saturation (%) 2024-03-20 16:15:00.000 95 % O2 Saturation (%) 2024-03-15 12:15:00.000 96 % Respirations 2024-03-31 11:31:00.000 18 /min Respirations 2024-03-29 19:45:00.000 18 /min Respirations 2024-03-22 14:50:00.000 20 /min Respirations 2024-03-20 16:15:00.000 16 /min Respirations 2024-03-15 12:15:00.000 18 /min Weight (lbs) 2024-03-22 14:50:00.000 235 [lb_av] Weight (lbs) 2024-03-15 12:15:00.000 235 [lb_av] Systolic Blood Pressure 2024-03-31 11:31:00.000 119 mm [Hg] Systolic Blood Pressure 2024-03-29 19:45:00.000 108 mm [Hg] Systolic Blood Pressure 2024-03-22 14:50:00.000 102 mm [Hg] Systolic Blood Pressure 2024-03-20 16:15:00.000 118 mm [Hg] Systolic Blood Pressure 2024-03-15 12:15:00.000 106 mm [Hg] Diastolic Blood Pressure 2024-03-31 11:31:00.000 83 mm [Hg] Diastolic Blood Pressure 2024-03-29 19:45:00.000 56 mm [Hg] Diastolic Blood Pressure 2024-03-22 14:50:00.000 54 mm [Hg] Diastolic Blood Pressure 2024-03-20 16:15:00.000 72 mm [Hg] Diastolic Blood Pressure 2024-03-15 12:15:00.000 60 mm [Hg] Plan of Treatment Planned Activity Planned Date Details Comments Future Scheduled Test SKILLED NU RSE TO EVALUATE PATIENT, IDENTIFY PRIMARY AND CO-MORBID CONDITIONS CODED PER CODING GUIDELINES, AND DEVELOP PATIENT SPECIFIC PLAN OF CARE THAT INCLUDES PATIENT GOAL FOR HOME HEALTH. [code = SKILLED NURSE TO EVALUATE PATIENT, IDENTIFY PRIMARY AND CO-MORBID CONDITIONS CODED PER CODING GUIDELINES, AND DEVELOP PATIENT SPECIFIC PLAN OF CARE THAT INCLUDES PATIENT GOAL FOR HOME HEALTH.] Future Scheduled Test SKILLED NU RSE TO REVIEW PATIENT MEDICATIONS. INSTRUCT PATIENT/CAREGIVER ON MONITORING OF EFFECTIVENESS, ADVERSE DRUG REACTIONS, SIDE EFFECTS OF ALL MEDICATIONS PRESCRIPTION/-OTCAND HOW AND WHEN TO REPORT PROBLEMS. [code = SKILLED NURSE TO REVIEW PATIENT MEDICATIONS. INSTRUCT PATIENT/CAREGIVER ON MONITORING OF EFFECTIVENESS, ADVERSE DRUG REACTIONS, SIDE EFFECTS OF ALL MEDICATIONS PRESCRIPTION/-OTCAND HOW AND WHEN TO REPORT PROBLEMS.] Future Scheduled Test OXYGEN VIA NASAL CANNULA 1-2 LITERS PRN SKILLED NURSE FOR O/A AND SKILLED TEACHING OF SAFE OXYGEN USE IN THE HOME. [code = OXYGEN VIA NASAL CANNULA 1-2 LITERS PRN SKILLED NURSE FOR O/A AND SKILLED TEACHING OF SAFE OXYGEN USE IN THE HOME.] Future Scheduled Test SKILLED NU RSE MAY COLLECT URINE SAMPLE FOR URINE REAGENT STRIP TESTING AND/OR URINALYSIS WITH CS 1-3 PRN IF INDICATED FOR SIGNS AND SYMPTOMS OF UTI. IF REAGENT STRIP TEST IS POSITIVE FOR UTI, SKILLED NURSE TO TAKE URINE SAMPLE TO LAB FOR URINE CS AND REPORT RESULTS TO PHYSICIAN. [code = SKILLED NURSE MAY COLLECT URINE SAMPLE FOR URINE REAGENT STRIP TESTING AND/OR URINALYSIS WITH CS 1-3 PRN IF INDICATED FOR SIGNS AND SYMPTOMS OF UTI. IF REAGENT STRIP TEST IS POSITIVE FOR UTI, SKILLED NURSE TO TAKE URINE SAMPLE TO LAB FOR URINE CS AND REPORT RESULTS TO PHYSICIAN.] Future Scheduled Test SKILLED NU RSE FOR O/A, TEACHING, AND MANAGEMENT OF CARDIOMYOPATHY, LEFT BBB. [code = SKILLED NURSE FOR O/A, TEACHING, AND MANAGEMENT OF CARDIOMYOPATHY, LEFT BBB.] Future Scheduled Test SKILLED NU RSE FOR O/A, TEACHING AND MANAGEMENT OF CKD, UTI FOR EARLY IDENTIFICATION OF EXACERBATION OF DISEASE PROCESS [code = SKILLED NURSE FOR O/A, TEACHING AND MANAGEMENT OF CKD, UTI FOR EARLY IDENTIFICATION OF EXACERBATION OF DISEASE PROCESS] Future Scheduled Test PHYSICAL T HERAPIST TO EVALUATE PATIENT FOR M7SCLE STRENGTHENING, ENDURANCE, MOBILITY [code = PHYSICAL THERAPIST TO EVALUATE PATIENT FOR M7SCLE STRENGTHENING, ENDURANCE, MOBILITY] Future Scheduled Test SKILLED NU RSE TO INSTRUCT PATIENT/CAREGIVER ON COPD TO INCLUDE TEACHING AND SELF-MANAGEMENT RELATED TO COPD DISEASE PROCESS, SIGNS AND SYMPTOMS, AND COMPLICATIONS. [code = SKILLED NURSE TO INSTRUCT PATIENT/CAREGIVER ON COPD TO INCLUDE TEACHING AND SELF-MANAGEMENT RELATED TO COPD DISEASE PROCESS, SIGNS AND SYMPTOMS, AND COMPLICATIONS.] Future Scheduled Test SKILLED NU RSE FOR O/A, TEACHING AND SELF-MANAGEMENT RELATED TO HEART FAILURE. INSTRUCT PATIENT/CAREGIVER ON SIGNS AND SYMPTOMS OF EXACERBATION TO REPORT AND IMPORTANCE OF OBTAINING AND RECORDING DAILY WEIGHT AND/OR MEASUREMENTS. SN OR TRAINED PATIENT/CAREGIVER TO OBTAIN WEIGHT DAILY AND WEIGHT GAIN OF 2 LBS OVERNIGHT OR 5 LBS IN 1 WEEK TO BE REPORTED TO PHYSICIAN/PROVIDER. IF UNABLE TO WEIGH PATIENT, SN OR TRAINED PATIENT/CAREGIVER TO OBTAIN MEASUREMENT OF BILATERAL CALF IN CM DAILY AND REPORT AN INCREASE OF 1 CM TO PHYSICIAN/PROVIDER. [code = SKILLED NURSE FOR O/A, TEACHING AND SELF-MANAGEMENT RELATED TO HEART FAILURE. INSTRUCT PATIENT/CAREGIVER ON SIGNS AND SYMPTOMS OF EXACERBATION TO REPORT AND IMPORTANCE OF OBTAINING AND RECORDING DAILY WEIGHT AND/OR MEASUREMENTS. SN OR TRAINED PATIENT/CAREGIVER TO OBTAIN WEIGHT DAILY AND WEIGHT GAIN OF 2 LBS OVERNIGHT OR 5 LBS IN 1 WEEK TO BE REPORTED TO PHYSICIAN/PROVIDER. IF UNABLE TO WEIGH PATIENT, SN OR TRAINED PATIENT/CAREGIVER TO OBTAIN MEASUREMENT OF BILATERAL CALF IN CM DAILY AND REPORT AN INCREASE OF 1 CM TO PHYSICIAN/PROVIDER.] Future Scheduled Test SKILLED NU RSE TO INSTRUCT PATIENT/CAREGIVER ON WARNING SIGNS OF CVA, RISK FACTORS, AND METHODS TO MANAGE SHELTER EFFECTS OF CVA. [code = SKILLED NURSE TO INSTRUCT PATIENT/CAREGIVER ON WARNING SIGNS OF CVA, RISK FACTORS, AND METHODS TO MANAGE COUTURE DRESSMAKER EFFECTS OF CVA.] Future Scheduled Test SKILLED NU RSE FOR O/A AND TEACHING OF DIABETIC MANAGEMENT INCLUDING BLOOD SUGAR MONITORING/USE OF GLUCOMETER, DIABETIC DIET, LOWER EXTREMITY SKIN INSPECTION, PROPER SKIN/FOOT CARE, AND SIGNS AND SYMPTOMS HYPO/HYPERGLYCEMIA TO REPORT. [code = SKILLED NURSE FOR O/A AND TEACHING OF DIABETIC MANAGEMENT INCLUDING BLOOD SUGAR MONITORING/USE OF GLUCOMETER, DIABETIC DIET, LOWER EXTREMITY SKIN INSPECTION, PROPER SKIN/FOOT CARE, AND SIGNS AND SYMPTOMS HYPO/HYPERGLYCEMIA TO REPORT.] Future Scheduled Test VIRTUAL SIT FREQUENCY: 3-4 PRN VIRTUAL VISITS FOR HIGH RISK ASSESSMENTS AND/OR CHANGE IN STATUS MAY BE PERFORMED UTILIZING TELECOMMUNICATIONS SYSTEM TO OPTIMIZE SKILLED SERVICES FURNISHED ON THE PLAN OF CARE. SKILLED NURSE TO ESTABLISH SUPPORT MEASURES TO MINIMIZE RISK OF REHOSPITALIZATION, AND INSTRUCT PATIENT/CAREGIVER ON METHODS TO REDUCE AVOIDABLE HOSPITALIZATION. [code = VIRTUAL VISIT FREQUENCY: 3-4 PRN VIRTUAL VISITS FOR HIGH RISK ASSESSMENTS AND/OR CHANGE IN STATUS MAY BE PERFORMED UTILIZING TELECOMMUNICATIONS SYSTEM TO OPTIMIZE SKILLED SERVICES FURNISHED ON THE PLAN OF CARE. SKILLED NURSE TO ESTABLISH SUPPORT MEASURES TO MINIMIZE RISK OF REHOSPITALIZATION, AND INSTRUCT PATIENT/CAREGIVER ON METHODS TO REDUCE AVOIDABLE HOSPITALIZATION.] Future Scheduled Test PATIENT REYNOLDS S A RISK OF HOSPITALIZATION AND ED USE. SKILLED NURSE TO ESTABLISH SUPPORT MEASURES TO MINIMIZE RISK OF HOSPITALIZATION AND ED USE, AND INSTRUCT PATIENT/CAREGIVER ON METHODS TO REDUCE AVOIDABLE HOSPITALIZATION AND ED USE. [code = PATIENT HAS A RISK OF HOSPITALIZATION AND ED USE. SKILLED NURSE TO ESTABLISH SUPPORT MEASURES TO MINIMIZE RISK OF HOSPITALIZATION AND ED USE, AND INSTRUCT PATIENT/CAREGIVER ON METHODS TO REDUCE AVOIDABLE HOSPITALIZATION AND ED USE.] Future Scheduled Test SKILLED NU RSE TO PROVIDE INSTRUCTION TO PATIENT/CAREGIVER RELATED TO DISCHARGE PLANNING. [code = SKILLED NURSE TO PROVIDE INSTRUCTION TO PATIENT/CAREGIVER RELATED TO DISCHARGE PLANNING.] Future Scheduled Test SKILLED NU RSE TO PERFORM ENVIRONMENTAL SAFETY RISK ASSESSMENT AND FALL RISK ASSESSMENT AND PROVIDE INSTRUCTION TO IMPLEMENT ENVIRONMENTAL SAFETY AND FALL PREVENTION STRATEGIES THROUGHOUT THE CERTIFICATION PERIOD. SKILLED NURSE WILL MAINTAIN SITUATIONAL AWARENESS AND WILL NOTIFY CLINICAL WARRANTY MANAGER AND PHYSICIAN/PROVIDER WITH ANY CHANGE IN CONDITION. [code = SKILLED NURSE TO PERFORM ENVIRONMENTAL SAFETY RISK ASSESSMENT AND FALL RISK ASSESSMENT AND PROVIDE INSTRUCTION TO IMPLEMENT ENVIRONMENTAL SAFETY AND FALL PREVENTION STRATEGIES THROUGHOUT THE CERTIFICATION PERIOD. SKILLED NURSE WILL MAINTAIN SITUATIONAL AWARENESS AND WILL NOTIFY CLINICAL WARRANTY MANAGER AND PHYSICIAN/PROVIDER WITH ANY CHANGE IN CONDITION.] Future Scheduled Test SKILLED NU RSE FOR OBSERVATION AND ASSESSMENT OF PATIENTS PAIN LEVEL AND EFFECTIVENESS OF PAIN MANAGEMENT REGIMEN. SKILLED NURSE TO INSTRUCT PATIENT/CAREGIVER REGARDING PHARMACOLOGIC AND NON-PHARMACOLOGIC PAIN CONTROL MEASURES. SKILLED NURSE TO REPORT TO PHYSICIAN IF PAIN IS UNCONTROLLED WITH CURRENT PAIN MANAGEMENT REGIMEN. [code = SKILLED NURSE FOR OBSERVATION AND ASSESSMENT OF PATIENTS PAIN LEVEL AND EFFECTIVENESS OF PAIN MANAGEMENT REGIMEN. SKILLED NURSE TO INSTRUCT PATIENT/CAREGIVER REGARDING PHARMACOLOGIC AND NON-PHARMACOLOGIC PAIN CONTROL MEASURES. SKILLED NURSE TO REPORT TO PHYSICIAN IF PAIN IS UNCONTROLLED WITH CURRENT PAIN MANAGEMENT REGIMEN.] Future Scheduled Test SKILLED NU RSE TO ASSESS PATIENT'S SKIN INTEGRITY AND INSTRUCT PATIENT/CAREGIVER ON MEASURES TO PREVENT PRESSURE ULCERS. [code = SKILLED NURSE TO ASSESS PATIENT'S SKIN INTEGRITY AND INSTRUCT PATIENT/CAREGIVER ON MEASURES TO PREVENT PRESSURE ULCERS.] Future Scheduled Test PHYSICAL T HERAPIST TO EVALUATE PATIENT SECONDARY TO FUNCTIONAL DEFICITS/SAFETY CONCERNS. PHYSICAL THERAPY TO ESTABLISH /UPGRADE/DOWNGRADE THERAPEUTIC EXERCISE PROGRAM AND INSTRUCT PATIENT/CAREGIVER ON EXERCISE PRECAUTIONS WITH WRITTEN HOME PROGRAM. MAY INCLUDE PROM, AAROM, AROM, RROM APPROPRIATE TO IMPROVE FUNCTIONAL STRENGTH AND RANGE OF MOTION. PHYSICAL THERAPY TO INSTRUCT PATIENT/CAREGIVER ON SAFE TRANSFER TECHNIQUES USING PROPER BODY MECHANICS AND EQUIPMENT. PHYSICAL THERAPY TO INSTRUCT PATIENT/CAREGIVER ON GAIT TRAINING TECHNIQUES USING APPROPRIATE ASSISTIVE DEVICE, PROPER BODY MECHANICS TO IMPROVE MOBILITY, AND PREVENT INJURY OF PATIENT AND/OR CAREGIVER. PHYSICAL THERAPY TO ASSESS AND RECOMMEND HOME SAFETY ADAPTATIONS AND EDUCATE PATIENT /CAREGIVER ON FALL PREVENTION STRATEGIES. PHYSICAL THERAPY FOR OBSERVATION AND ASSESSMENT OF PAIN, EFFECTIVENESS OF PAIN MANAGEMENT REGIMEN AND SKILLED TEACHING RELATED TO PAIN MANAGEMENT. THERAPIST TO REPORT INCREASED PAIN LEVEL TO PHYSICIAN FOR PROMPT INTERVENTION. PHYSICAL THERAPY TO INSTRUCT PATIENT/CAREGIVER ON BALANCE AND BALANCE STRATEGIES TO IMPROVE SAFE MOBILITY AND REDUCE RISK FOR FALL AND INJURY SUMMARY OF THERAPY EVAL/ASSESSMENT FINDINGS AND REASON(S) SKILLS OF A THERAPIST ARE INDICATED: 03/20: PATIENT IS A 79-YEAR-OLD MALE WITH HISTORY OF CARDIOMYOPATHY WITH EJECTION FRACTION OF 30-35%, DIASTOLIC HEART FAILURE, COPD ON P.R.N. 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 WORKUP NEGATIVE FOR ACUTE PATHOLOGY AND PATIENT ABLE TO DISCHARGE HOME. PLOF: PATIENT LIVES WITH SPOUSE AND SEVERAL FAMILY MEMBERS IN SINGLE FAMILY HOME WITH 3 STAIRS TO ENTER. PATIENT OWNS ROLLING WALKER AND STRAIGHT CANE BUT DOES NOT UTILIZE AT BASELINE, PATIENT HAS PORTABLE OXYGEN TANKS AND CONCENTRATOR THAT HE USES -NEEDED FOR SHORTNESS OF BREATH, PATIENT OWNS PULSE OXIMETER AND IS ABLE TO ASSESS HEART RATE AND SAO2. PATIENT REPORTS 2 FALLS OVER THE LAST YEAR. HOME IS CLUTTERED WITH CLEAR PATHWAYS. PATIENT'S PRIMARY GOAL WITH HOME PT SERVICES TO IMPROVE HIS LOWER EXTREMITY STRENGTH IN ORDER TO NAVIGATE STAIRS, PATIENT HAS UPCOMING WED ANNIVERSARY WHERE HE NEEDS TO STEP UP INTO A HIGH SEATED SURFACE IN ORDER TO ACCESS HORSE DRAWN CARRIAGE AND WISHES TO HAVE THE PHYSICAL ABILITY TO DO SO WITHOUT RISK FOR FALLS. PATIENT PRESENTS BELOW BASELINE LEVEL OF FUNCTION EVIDENCED BY DECREASED LOWER EXTREMITY STRENGTH, IMPAIRED ENDURANCE, AND IMPAIRED DYNAMIC STANDING BALANCE EVIDENCED BY ALL FALLS RISK OUTCOME MEASURES PERFORMED AT TIME OF INITIAL EVALUATION, HE IS AT RISK FOR POTENTIAL FALLS AND REHOSPITALIZATION GIVEN SCORES ON TINETTI, TUG, AND 2 MINUTE STEP TEST. PATIENT WILL REQUIRE HOME PT SERVICES IN ORDER TO MAXIMIZE CURRENT LEVEL OF FUNCTION INDEPENDENCE. WILL PLAN FOR WEEKLY VISITS UNTIL END OF EPISODE IN ORDER TO IMPLEMENT THE FOLLOWING: GAIT TRAINING, STAIR TRAINING, TRANSFER TRAINING, HEP CREATION, FLOOR TRANSFER TRAINING, CAREGIVER TRAINING, HOME MODIFICATIONS/DME RECOMMENDATIONS, HEP CREATION, AND LOWER EXTREMITY STRENGTHENING. VERBAL ORDER RECEIVED FROM MALA AT MD OFFICE FOR PT PLAN OF CARE. [code = PHYSICAL THERAPIST TO EVALUATE PATIENT SECONDARY TO FUNCTIONAL DEFICITS/SAFETY CONCERNS. PHYSICAL THERAPY TO ESTABLISH /UPGRADE/DOWNGRADE THERAPEUTIC EXERCISE PROGRAM AND INSTRUCT PATIENT/CAREGIVER ON EXERCISE PRECAUTIONS WITH WRITTEN HOME PROGRAM. MAY INCLUDE PROM, AAROM, AROM, RROM APPROPRIATE TO IMPROVE FUNCTIONAL STRENGTH AND RANGE OF MOTION. PHYSICAL THERAPY TO INSTRUCT PATIENT/CAREGIVER ON SAFE TRANSFER TECHNIQUES USING PROPER BODY MECHANICS AND EQUIPMENT. PHYSICAL THERAPY TO INSTRUCT PATIENT/CAREGIVER ON GAIT TRAINING TECHNIQUES USING APPROPRIATE ASSISTIVE DEVICE, PROPER BODY MECHANICS TO IMPROVE MOBILITY, AND PREVENT INJURY OF PATIENT AND/OR CAREGIVER. PHYSICAL THERAPY TO ASSESS AND RECOMMEND HOME SAFETY ADAPTATIONS AND EDUCATE PATIENT /CAREGIVER ON FALL PREVENTION STRATEGIES. PHYSICAL THERAPY FOR OBSERVATION AND ASSESSMENT OF PAIN, EFFECTIVENESS OF PAIN MANAGEMENT REGIMEN AND SKILLED TEACHING RELATED TO PAIN MANAGEMENT. THERAPIST TO REPORT INCREASED PAIN LEVEL TO PHYSICIAN FOR PROMPT INTERVENTION. PHYSICAL THERAPY TO INSTRUCT PATIENT/CAREGIVER ON BALANCE AND BALANCE STRATEGIES TO IMPROVE SAFE MOBILITY AND REDUCE RISK FOR FALL AND INJURY SUMMARY OF THERAPY EVAL/ASSESSMENT FINDINGS AND REASON(S) SKILLS OF A THERAPIST ARE INDICATED: 03/20: PATIENT IS A 79-YEAR-OLD MALE WITH HISTORY OF CARDIOMYOPATHY WITH EJECTION FRACTION OF 30-35%, DIASTOLIC HEART FAILURE, COPD ON P.R.N. 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 WORKUP NEGATIVE FOR ACUTE PATHOLOGY AND PATIENT ABLE TO DISCHARGE HOME. PLOF: PATIENT LIVES WITH SPOUSE AND SEVERAL FAMILY MEMBERS IN SINGLE FAMILY HOME WITH 3 STAIRS TO ENTER. PATIENT OWNS ROLLING WALKER AND STRAIGHT CANE BUT DOES NOT UTILIZE AT BASELINE, PATIENT HAS PORTABLE OXYGEN TANKS AND CONCENTRATOR THAT HE USES -NEEDED FOR SHORTNESS OF BREATH, PATIENT OWNS PULSE OXIMETER AND IS ABLE TO ASSESS HEART RATE AND SAO2. PATIENT REPORTS 2 FALLS OVER THE LAST YEAR. HOME IS CLUTTERED WITH CLEAR PATHWAYS. PATIENT'S PRIMARY GOAL WITH HOME PT SERVICES TO IMPROVE HIS LOWER EXTREMITY STRENGTH IN ORDER TO NAVIGATE STAIRS, PATIENT HAS UPCOMING [place] ANNIVERSARY WHERE HE NEEDS TO STEP UP INTO A HIGH SEATED SURFACE IN ORDER TO ACCESS HORSE DRAWN CARRIAGE AND WISHES TO HAVE THE PHYSICAL ABILITY TO DO SO WITHOUT RISK FOR FALLS. PATIENT PRESENTS BELOW BASELINE LEVEL OF FUNCTION EVIDENCED BY DECREASED LOWER EXTREMITY STRENGTH, IMPAIRED ENDURANCE, AND IMPAIRED DYNAMIC STANDING BALANCE EVIDENCED BY ALL FALLS RISK OUTCOME MEASURES PERFORMED AT TIME OF INITIAL EVALUATION, HE IS AT RISK FOR POTENTIAL FALLS AND REHOSPITALIZATION GIVEN SCORES ON TINETTI, TUG, AND 2 MINUTE STEP TEST. PATIENT WILL REQUIRE HOME PT SERVICES IN ORDER TO MAXIMIZE CURRENT LEVEL OF FUNCTION INDEPENDENCE. WILL PLAN FOR WEEKLY VISITS UNTIL END OF EPISODE IN ORDER TO IMPLEMENT THE FOLLOWING: GAIT TRAINING, STAIR TRAINING, TRANSFER TRAINING, HEP CREATION, FLOOR TRANSFER TRAINING, CAREGIVER TRAINING, HOME MODIFICATIONS/DME RECOMMENDATIONS, HEP CREATION, AND LOWER EXTREMITY STRENGTHENING. VERBAL ORDER RECEIVED FROM MALA BLACKMAN MD OFFICE FOR PT PLAN OF CARE.] Goal Patient Goal - T O GET BACK TO WALKING LIKE BEFORE Goal Provider Goal - A PLAN OF CARE WILL BE ESTABLISHED THAT MEETS PATIENT'S JAIL NEEDS AND INCLUDES PATIENT GOAL FOR HOME HEALTH. Goal Provider Goal - PATIENT/CAREGIVER WILL VERBALIZE UNDERSTANDING OF EDUCATION PROVIDED ON MEDICATIONS BY THE END OF THE CERTIFICATION PERIOD. Goal Provider Goal - PATIENT/CAREGIVER WILL VERBALIZE/DEMONSTRATE UNDERSTANDING OF SAFE OXYGEN USE IN THE HOME THROUGHOUT THE EPISODE. Goal Provider Goal - URINE SPECIMEN WILL BE OBTAINED PRN FOR SIGNS AND SYMPTOMS OF UTI AND RESULTS WILL BE REPORTED TO PHYSICIAN THROUGHOUT THE CERTIFICATION PERIOD. Goal Provider Goal - PATIENT/CAREGIVER WILL VERBALIZE/DEMONSTRATE MANAGEMENT OF CARDIAC DISEASE PROCESS AND EXACERBATIONS WILL BE IDENTIFIED AND PROMPTLY REPORTED THROUGHOUT THE CERTIFICATION PERIOD. Goal Provider Goal - PATIENT/CAREGIVER WILL VERBALIZE UNDERSTANDING OF GENITOURINARY DISEASE PROCESS, AND EXACERBATIONS OF GENITOURINARY DISEASE WILL BE PROMPTLY IDENTIFIED FOR EARLY INTERVENTION THROUGHOUT THE CERTIFICATION PERIOD. Goal Provider Goal - A PHYSICAL THERAPY EVALUATION TO BE COMPLETED WITH RECOMMENDATIONS AND/OR WRITTEN PLAN OF TREATMENT ESTABLISHED FOR PHYSICIANS SIGNATURE. Goal Provider Goal - PATIENT/CAREGIVER WILL VERBALIZE/DEMONSTRATE KNOWLEDGE AND MANAGEMENT OF COPD BY END OF EPISODE. Goal Provider Goal - PATIENT/CAREGIVER WILL VERBALIZE/DEMONSTRATE KNOWLEDGE AND MANAGEMENT OF HEART FAILURE DISEASE PROCESS BY END OF EPISODE. Goal Provider Goal - PATIENT/CAREGIVER WILL DEMONSTRATE COMPLIANCE WITH TREATMENT REGIME AND VERBALIZE SIGNS AND SYMPTOMS TO REPORT WELL POSSIBLE COMPLICATIONS OF CVA BY END OF EPISODE. Goal Provider Goal - PATIENT/CAREGIVER WILL VERBALIZE/DEMONSTRATE KNOWLEDGE OF DIABETIC MANAGEMENT. CHANGES IN DIABETIC STATUS WILL BE IDENTIFIED AND REPORTED TO PHYSICIAN FOR PROMPT INTERVENTION THROUGHOUT THE CERTIFICATION PERIOD. Goal Provider Goal - PATIENT/CAREGIVER WILL UTILIZE VIRTUAL VISITS TO ACHIEVE GOALS OUTLINED ON THE PLAN OF CARE. PATIENT WILL HAVE SUPPORT MEASURES ESTABLISHED TO PREVENT HOSPITALIZATION AND PATIENT/CAREGIVER WILL VERBALIZE/DEMONSTRATE METHODS TO REDUCE AVOIDABLE HOSPITALIZATION THROUGHOUT THE CERTIFICATION PERIOD. Goal Provider Goal - PATIENT WILL HAVE SUPPORT MEASURES ESTABLISHED TO PREVENT HOSPITALIZATION AND ED USE AND PATIENT/CAREGIVER WILL VERBALIZE/DEMONSTRATE METHODS TO REDUCE AVOIDABLE HOSPITALIZATION AND ED USE BY END OF EPISODE. Goal Provider Goal - PATIENT/CAREGIVER WILL VERBALIZE UNDERSTANDING OF DISCHARGE PLANNING INSTRUCTIONS BY DATE OF DISCHARGE. Goal Provider Goal - PATIENT/CAREGIVER WILL VERBALIZE/DEMONSTRATE EFFECTIVE ENVIRONMENTAL SAFETY AND FALL PREVENTION STRATEGIES, WILL REMAIN SAFE IN THE COMMUNITY, AND WILL BE FREE OF DANGER TO SELF AND OTHERS THROUGHOUT THE CERTIFICATION PERIOD. Goal Provider Goal - PATIENT/CAREGIVER WILL DEMONSTRATE UNDERSTANDING OF PHARMACOLOGIC AND NONPHARMACOLOGIC PAIN CONTROL MEASURES AND PATIENT WILL HAVE IMPROVEMENT IN PAIN INTERFERING WITH ACTIVITY EVIDENCED BY PAIN CONTROLLED AT LEVEL OF 7 OR LESS BY END OF CERTIFICATION PERIOD. Goal Provider Goal - PATIENT/CAREGIVER WILL VERBALIZE UNDERSTANDING OF PRESSURE ULCER PREVENTION BY END OF THE EPISODE. Goal Provider Goal - PHYSICAL THERAPY EVALUATION TO BE COMPLETED WITH RECOMMENDATIONS AND/OR WRITTEN TREATMENT PLAN OF CARE ESTABLISHED FOR THE PHYSICIANS SIGNATURE PATIENT/CAREGIVER WILL PERFORM THERAPEUTIC EXERCISE/S AND DEMONSTRATE PARTICIPATION IN A HOME PROGRAM. PATIENT/CAREGIVER WILL DEMONSTRATE SAFE TRANSFERS USING APPROPRIATE ASSISTIVE DEVICE, BODY MECHANICS AND EQUIPMENT. PATIENT/CAREGIVER WILL DEMONSTRATE IMPROVED GAIT TECHNIQUES TO MINIMIZE RISK OF INJURY. PATIENT/CAREGIVER WILL DEMONSTRATE/VERBALIZE UNDERSTANDING OF RECOMMENDATIONS TO INCREASE SAFETY IN THE HOME AND FALL PREVENTION. INCREASED PAIN OR INEFFECTIVE PAIN CONTROL MEASURES WILL BE IDENTIFIED AND PROMPTLY REPORTED TO THE PHYSICIAN. PATIENT/CAREGIVER WILL DEMONSTRATE EFFECTIVE PAIN MANAGEMENT. PATIENT/CAREGIVER WILL DEMONSTRATE IMPROVED BALANCE AND REDUCE THE RISK OF FALLS AND INJURY. Encounters Start Date/Time End Date/Time Encounter Type Admission Type Attending Clinicians Care Facility Care Department Encounter ID Discharge Date Discharge Status Discharge Condition Discharge Reason Percent Goals Met 2024-03-15 00:00:00 2024-05-13 00:00:00 Outpatient [facility] JAC[facility] [id number] 31.82
== END 2024-04-11 11:24 | disposition home or self-care (01) ==
PROVIDERS: PCP Internal Medicine; Visit Provider Internal Medicine Hypertension Specialist
DX: N18.30 Chronic kidney disease, stage 3 unspecified (principal)
CPT/HCPCS: 99214

== ENCOUNTER → 2024-04-11 11:10 | Outpatient (BNVA) | payer MEDICARE, MEDICAID, SELFPAY | PROVIDERS: PCP Internal Medicine; Visit Provider Internal Medicine Hypertension Specialist | DX: N18.30 Chronic kidney disease, stage 3 unspecified (principal) | CPT/HCPCS: 99212 ==

== ENCOUNTER 2024-04-11 11:31 | Outpatient (REF) | payer MEDICARE, MEDICAID, SELFPAY ==
--- OUTSIDE RECORDS SUMMARY | 2024-04-11 11:47 | XMS_ITS | Continuity of Care Document ---
Author Name [facility] Organization [facility] Care Team Providers Care Opinion Polls Survey Worker Name Role Phone [facility] Unavailable Unavailable Social History Combined list of [...]
--- OUTSIDE RECORDS SUMMARY | 2024-04-11 11:47 | XMS_ITS | Clinical Summary ---
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 Nanotechnology Engineering Technician Name Role Phone MARY JANE MELENDREZ, OSMAN Unavailable Unavailable TITA RN, CONCEPCION Unavailable Unavailable ANUPAM RN P[facility], FINA Unavailable Unavailab dennis MELENDEZ LPN, MALA Unavailable Surinder DOAN PT, JS Unavailable Unavailable Payers Payer Name Policy Type Policy Number Effective Date Expira tion Date MEDICARE - [facility] [id number] MEDICAID [facility] [id number] Problems Condition Name Condition Details Condition Category [...] SOLITARY PULMONARY NODULE Active 04-26 00:00: 00 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 Active 04-26 00:00: 00 RETIREMENT (CURRENT) USE OF ORAL HYPOGLYCEMIC DRUGS Active 04-26 00:00: 00 COMMISSION SALES ASSOCIATE (CURRENT) USE OF ANTITHROMBOT ICS/ANTIPLAT ELETS Active 04-26 00:00: 00 RETIREMENT (CURRENT) USE OF INHALED STEROIDS Active 04-26 [...] 11-12 00:00: 00 11-28 00:00 :00 No [id number] Per instruc tions THREE TIMES DAILY Per instructio ns THREE TIMES DAILY (route: oral) Med Classific ation: Locomotor System carvedilol 3.125 mg tablet 11-10 00:00: 00 03-15 00:00 :00 No [id number] 1 tablet TWICE DAILY 1 tablet TWICE DAILY (route: oral) Med Classific ation: Cardiovas cular Therapy Agents Jardiance 10 mg tablet 11-10 00:00: 00 03-15 00:00 :00 No [id number] 1 tablet DAILY 1 tablet DAILY (route: oral) Med Classific ation: Endocrine OxyContin 20 mg tablet,david h resistant,e xtended release 11-05 00:00: 00 03-15 00:00 :00 No [id number] Unavailable Per instruc tions EVERY Per instructio ns EVERY (route: oral) Med Classific ation: Analgesic , Anti-infl ammatory or Antipyret ic OxyContin 30 mg tablet,david h resistant,e xtended release 7-13 00:00: 00 03-15 00:00 :00 No [id number] Unavailable Per instruc tions EVERY EVERY Per instructio ns EVERY EVERY (route: oral) Med Classific ation: Analgesic , Anti-infl ammatory or Antipyret ic Ventolin HFA 90 mcg/actuati on aerosol inhaler 7-06 00:00: 00 03-15 00:00 :00 No [id number] Per instruc tions INTO THE LUNGS EVERY 3 HOURS NEEDED Per instructio ns INTO THE LUNGS EVERY 3 HOURS NEEDED (route: inhalation ) Med Classific ation: Respirato ry Therapy Agents lorazepam 1 mg tablet 629 00:00: 00 03-15 00:00 :00 No [id number] 1 tablet THREE TIMES DAILY 1 tablet THREE TIMES DAILY (route: oral) Med Classific ation: Central Nervous System Agents carisoprodo l 350 mg tablet 6 00:00: 00 03-15 00:00 :00 No [id number] 1 tablet THREE TIMES DAILY 1 tablet THREE TIMES DAILY (route: oral) Med Classific ation: Locomotor System allopurinol 100 mg tablet 805 00:00: 00 03-15 00:00 :00 No [id number] 2 tablet DAILY 2 tablet DAILY (route: oral) Med Classific ation: Gout and Hyperuric emia Therapy aspirin 81 mg tablet,rene yed release 805 00:00: 00 03-15 00:00 :00 No [id number] 1 tablet DAILY 1 tablet DAILY (route: oral) Med Classific ation: Hematolog ical Agents atorvastati n 80 mg tablet 8-05 00:00: 00 03-15 00:00 :00 No [id number] 1 tablet BEDTIME 1 tablet BEDTIME (route: oral) Med Classific ation: Cardiovas cular Therapy Agents cefpodoxime 100 mg tablet 11-28 00:00: 00 12-01 23:59 :00 No [id number] 1 tablet 2 TIMES DAILY 1 tablet 2 TIMES DAILY (route: oral) Med Classific ation: Anti-Infe ctive Agents clopidogrel 75 mg tablet 11-28 00:00: 00 03-15 00:00 :00 No [id number] 1 tablet DAILY 1 tablet DAILY (route: oral) Med Classific ation: Hematolog ical Agents glipizide ER 2.5 mg tablet, extended release 24 hr 11-28 00:00: 00 03-15 00:00 :00 No [id number] 1 tablet 2 TIMES DAILY 1 tablet 2 TIMES DAILY (route: oral) Med Classific ation: Endocrine Mucinex 600 mg tablet, extended release 11-28 00:00: 00 12-07 23:59 :00 No [id number] 1 tablet 2 TIMES DAILY 1 tablet 2 TIMES DAILY (route: oral) Med Classific ation: Respirato ry Therapy Agents omeprazole 20 mg capsule,del ayed release 11-28 00:00: 00 03-15 00:00 :00 No [id number] 1 capsule DAILY 1 capsule DAILY (route: oral) Med Classific ation: Gastroint estinal Therapy Agents tamsulosin 0.4 mg capsule 11-28 00:00: 00 03-15 00:00 :00 No [id number] 1 capsule DAILY 1 capsule DAILY (route: oral) Med Classific ation: Genitouri nary Therapy torsemide 20 mg tablet 11-28 00:00: 00 03-15 00:00 :00 No [id number] 0.5 tablet DAILY 0.5 tablet DAILY (route: oral) Med Classific ation: Cardiovas cular Therapy Agents OXYGEN 11-28 00:00: 00 Yes [id number] 2 Liter O2 - CONTINUOUS 2 Liter O2 - CONTINUOUS (route: Oxygen) Med Classific ation: Medical Oxygen allopurinol 100 mg tablet 2023-04 00:00: 00 Yes [id number] 2 tablet DAILY 2 tablet DAILY (route: oral) Med Classific ation: Gout and Hyperuric emia Therapy aspirin 81 mg tablet,rene yed release 2023-04 00:00: 00 Yes [id number] 1 tablet DAILY 1 tablet DAILY (route: oral) Med Classific ation: Hematolog ical Agents carisoprodo l 350 mg tablet 2023-04 00:00: 00 Yes [id number] 2 tablet 3 TIMES DAILY 2 tablet 3 TIMES DAILY (route: oral) Med Classific ation: Locomotor System carvedilol 6.25 mg tablet 2023-04 00:00: 00 Yes [id number] 1 tablet 2 TIMES DAILY 1 tablet 2 TIMES DAILY (route: oral) Med Classific ation: Cardiovas cular Therapy Agents clopidogrel 75 mg tablet 2023-04 00:00: 00 Yes [id number] 1 tablet DAILY 1 tablet DAILY (route: oral) Med Classific ation: Hematolog ical Agents Farxiga 10 mg tablet 2023-04 00:00: 00 Yes [id number] 1 tablet DAILY 1 tablet DAILY (route: oral) Med Classific ation: Endocrine Fish Oil 1,000 mg (120 mg-180 mg) capsule 2023-04 00:00: 00 Yes [id number] 1 capsule DAILY 1 capsule DAILY (route: oral) Med Classific ation: Cardiovas cular Therapy Agents furosemide 20 mg tablet 2023-04 00:00: 00 Yes [id number] 1 tablet DAILY 1 tablet DAILY (route: oral) Med Classific ation: Cardiovas cular Therapy Agents glipizide 2.5 mg tablet 2023-04 00:00: 00 Yes [id number] 1 tablet 2 TIMES DAILY 1 tablet 2 TIMES DAILY (route: oral) Med Classific ation: Endocrine lorazepam 1 mg tablet 2023-04 00:00: 00 Yes [id number] 1 tablet 3 TIMES DAILY 1 tablet 3 TIMES DAILY (route: oral) Med Classific ation: Central Nervous System Agents losartan 50 mg tablet 2023-04 00:00: 00 Yes [id number] 1 tablet DAILY 1 tablet DAILY (route: oral) Med Classific ation: Cardiovas cular Therapy Agents omeprazole 20 mg capsule,del ayed release 2023-04 00:00: 00 Yes [id number] 1 capsule DAILY 1 capsule DAILY (route: oral) Med Classific ation: Gastroint estinal Therapy Agents ondansetron HCl 4 mg tablet 2023-04 00:00: 00 Yes [id number] 1 tablet EVERY 8 HOURS 1 tablet EVERY 8 HOURS (route: oral) Med Classific ation: Gastroint estinal Therapy Agents oxycodone 20 mg tablet 2023-04 00:00: 00 Yes [id number] 1 tablet DIRECTED 1 tablet DIRECTED (route: oral) Med Classific ation: Analgesic , Anti-infl ammatory or Antipyret ic OxyContin 30 mg tablet,david h resistant,e xtended release 2023-04 00:00: 00 Yes [id number] 1 tablet 2 TIMES DAILY 1 tablet 2 TIMES DAILY (route: oral) Med Classific ation: Analgesic , Anti-infl ammatory or Antipyret ic simvastatin 40 mg tablet 2023-04 00:00: 00 Yes [id number] 1 tablet BEDTIME 1 tablet BEDTIME (route: oral) Med Classific ation: Cardiovas cular Therapy Agents Trelegy Ellipta 100 mcg-62.5 mcg-25 mcg powder for inhalation 2023-04 00:00: 00 Yes [id number] 1 inhalat ion DAILY 1 inhalation DAILY [...] CVA, RISK FACTORS, AND METHODS TO MANAGE RETIREMENT EFFECTS OF CVA. [code = SKILLED NURSE TO INSTRUCT PATIENT/CAREGIVER ON WARNING SIGNS OF CVA, RISK FACTORS, AND METHODS TO MANAGE COMMISSION SALES ASSOCIATE EFFECTS OF CVA.] Future Scheduled Test SKILLED [...] MAINTAIN SITUATIONAL AWARENESS AND WILL NOTIFY CLINICAL VENEER GRADER AND PHYSICIAN/PROVIDER WITH ANY CHANGE IN CONDITION. [code = SKILLED NURSE TO PERFORM ENVIRONMENTAL SAFETY RISK ASSESSMENT AND FALL RISK ASSESSMENT AND PROVIDE INSTRUCTION TO IMPLEMENT ENVIRONMENTAL SAFETY AND FALL PREVENTION STRATEGIES THROUGHOUT THE CERTIFICATION PERIOD. SKILLED NURSE WILL MAINTAIN SITUATIONAL AWARENESS AND WILL NOTIFY CLINICAL VENEER GRADER AND PHYSICIAN/PROVIDER WITH ANY CHANGE IN CONDITION.] [...] CARE WILL BE ESTABLISHED THAT MEETS PATIENT'S HALF-WAY NEEDS AND INCLUDES PATIENT GOAL FOR HOME [...] 2024-03-15 00:00:00 2024-05-13 00:00:00 Outpatient [facility] JACIN[facility] [id number] 31.82
--- OUTSIDE RECORDS SUMMARY | 2024-04-11 11:47 | XMS_ITS | Clinical Summary ---
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 Wheel Adjuster Name Role Phone MARY JANE MELENDREZ, OSMAN Unavailable Unavailable TITA RN, CONCEPCION Unavailable Unavailable ANUPAM MAT INSPECTOR, FINA Unavailable Unavailab dennis MELENDEZ LPN, MALA Unavailable Surinder DOAN PT, JS Unavailable Unavailable Payers Payer Name Policy Type Policy Number Effective Date Expira tion Date MEDICARE - [facility] [id number] MEDICAID [facility] [id number] Problems Condition Name Condition Details Condition Category [...] SOLITARY PULMONARY NODULE Active 04-26 00:00: 00 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 Active 04-26 00:00: 00 SKILLED NURSING (CURRENT) USE OF ORAL HYPOGLYCEMIC DRUGS Active 04-26 00:00: 00 ZINC FURNACE CHARGER (CURRENT) USE OF ANTITHROMBOT ICS/ANTIPLAT ELETS Active 04-26 00:00: 00 SKILLED NURSING (CURRENT) USE OF INHALED STEROIDS Active 04-26 [...] 11-12 00:00: 00 11-28 00:00 :00 No [id number] Per instruc tions THREE TIMES DAILY Per instructio ns THREE TIMES DAILY (route: oral) Med Classific ation: Locomotor System carvedilol 3.125 mg tablet 11-10 00:00: 00 03-15 00:00 :00 No [id number] 1 tablet TWICE DAILY 1 tablet TWICE DAILY (route: oral) Med Classific ation: Cardiovas cular Therapy Agents Jardiance 10 mg tablet 11-10 00:00: 00 03-15 00:00 :00 No [id number] 1 tablet DAILY 1 tablet DAILY (route: oral) Med Classific ation: Endocrine OxyContin 20 mg tablet,david h resistant,e xtended release 11-05 00:00: 00 03-15 00:00 :00 No [id number] Unavailable Per instruc tions EVERY Per instructio ns EVERY (route: oral) Med Classific ation: Analgesic , Anti-infl ammatory or Antipyret ic OxyContin 30 mg tablet,david h resistant,e xtended release 7-13 00:00: 00 03-15 00:00 :00 No [id number] Unavailable Per instruc tions EVERY EVERY Per instructio ns EVERY EVERY (route: oral) Med Classific ation: Analgesic , Anti-infl ammatory or Antipyret ic Ventolin HFA 90 mcg/actuati on aerosol inhaler 7-06 00:00: 00 03-15 00:00 :00 No [id number] Per instruc tions INTO THE LUNGS EVERY 3 HOURS NEEDED Per instructio ns INTO THE LUNGS EVERY 3 HOURS NEEDED (route: inhalation ) Med Classific ation: Respirato ry Therapy Agents lorazepam 1 mg tablet 629 00:00: 00 03-15 00:00 :00 No [id number] 1 tablet THREE TIMES DAILY 1 tablet THREE TIMES DAILY (route: oral) Med Classific ation: Central Nervous System Agents carisoprodo l 350 mg tablet 6 00:00: 00 03-15 00:00 :00 No [id number] 1 tablet THREE TIMES DAILY 1 tablet THREE TIMES DAILY (route: oral) Med Classific ation: Locomotor System allopurinol 100 mg tablet 805 00:00: 00 03-15 00:00 :00 No [id number] 2 tablet DAILY 2 tablet DAILY (route: oral) Med Classific ation: Gout and Hyperuric emia Therapy aspirin 81 mg tablet,rene yed release 805 00:00: 00 03-15 00:00 :00 No [id number] 1 tablet DAILY 1 tablet DAILY (route: oral) Med Classific ation: Hematolog ical Agents atorvastati n 80 mg tablet 8-05 00:00: 00 03-15 00:00 :00 No [id number] 1 tablet BEDTIME 1 tablet BEDTIME (route: oral) Med Classific ation: Cardiovas cular Therapy Agents cefpodoxime 100 mg tablet 11-28 00:00: 00 12-01 23:59 :00 No [id number] 1 tablet 2 TIMES DAILY 1 tablet 2 TIMES DAILY (route: oral) Med Classific ation: Anti-Infe ctive Agents clopidogrel 75 mg tablet 11-28 00:00: 00 03-15 00:00 :00 No [id number] 1 tablet DAILY 1 tablet DAILY (route: oral) Med Classific ation: Hematolog ical Agents glipizide ER 2.5 mg tablet, extended release 24 hr 11-28 00:00: 00 03-15 00:00 :00 No [id number] 1 tablet 2 TIMES DAILY 1 tablet 2 TIMES DAILY (route: oral) Med Classific ation: Endocrine Mucinex 600 mg tablet, extended release 11-28 00:00: 00 12-07 23:59 :00 No [id number] 1 tablet 2 TIMES DAILY 1 tablet 2 TIMES DAILY (route: oral) Med Classific ation: Respirato ry Therapy Agents omeprazole 20 mg capsule,del ayed release 11-28 00:00: 00 03-15 00:00 :00 No [id number] 1 capsule DAILY 1 capsule DAILY (route: oral) Med Classific ation: Gastroint estinal Therapy Agents tamsulosin 0.4 mg capsule 11-28 00:00: 00 03-15 00:00 :00 No [id number] 1 capsule DAILY 1 capsule DAILY (route: oral) Med Classific ation: Genitouri nary Therapy torsemide 20 mg tablet 11-28 00:00: 00 03-15 00:00 :00 No [id number] 0.5 tablet DAILY 0.5 tablet DAILY (route: oral) Med Classific ation: Cardiovas cular Therapy Agents OXYGEN 11-28 00:00: 00 Yes [id number] 2 Liter O2 - CONTINUOUS 2 Liter O2 - CONTINUOUS (route: Oxygen) Med Classific ation: Medical Oxygen allopurinol 100 mg tablet 2023-04 00:00: 00 Yes [id number] 2 tablet DAILY 2 tablet DAILY (route: oral) Med Classific ation: Gout and Hyperuric emia Therapy aspirin 81 mg tablet,rene yed release 2023-04 00:00: 00 Yes [id number] 1 tablet DAILY 1 tablet DAILY (route: oral) Med Classific ation: Hematolog ical Agents carisoprodo l 350 mg tablet 2023-04 00:00: 00 Yes [id number] 2 tablet 3 TIMES DAILY 2 tablet 3 TIMES DAILY (route: oral) Med Classific ation: Locomotor System carvedilol 6.25 mg tablet 2023-04 00:00: 00 Yes [id number] 1 tablet 2 TIMES DAILY 1 tablet 2 TIMES DAILY (route: oral) Med Classific ation: Cardiovas cular Therapy Agents clopidogrel 75 mg tablet 2023-04 00:00: 00 Yes [id number] 1 tablet DAILY 1 tablet DAILY (route: oral) Med Classific ation: Hematolog ical Agents Farxiga 10 mg tablet 2023-04 00:00: 00 Yes [id number] 1 tablet DAILY 1 tablet DAILY (route: oral) Med Classific ation: Endocrine Fish Oil 1,000 mg (120 mg-180 mg) capsule 2023-04 00:00: 00 Yes [id number] 1 capsule DAILY 1 capsule DAILY (route: oral) Med Classific ation: Cardiovas cular Therapy Agents furosemide 20 mg tablet 2023-04 00:00: 00 Yes [id number] 1 tablet DAILY 1 tablet DAILY (route: oral) Med Classific ation: Cardiovas cular Therapy Agents glipizide 2.5 mg tablet 2023-04 00:00: 00 Yes [id number] 1 tablet 2 TIMES DAILY 1 tablet 2 TIMES DAILY (route: oral) Med Classific ation: Endocrine lorazepam 1 mg tablet 2023-04 00:00: 00 Yes [id number] 1 tablet 3 TIMES DAILY 1 tablet 3 TIMES DAILY (route: oral) Med Classific ation: Central Nervous System Agents losartan 50 mg tablet 2023-04 00:00: 00 Yes [id number] 1 tablet DAILY 1 tablet DAILY (route: oral) Med Classific ation: Cardiovas cular Therapy Agents omeprazole 20 mg capsule,del ayed release 2023-04 00:00: 00 Yes [id number] 1 capsule DAILY 1 capsule DAILY (route: oral) Med Classific ation: Gastroint estinal Therapy Agents ondansetron HCl 4 mg tablet 2023-04 00:00: 00 Yes [id number] 1 tablet EVERY 8 HOURS 1 tablet EVERY 8 HOURS (route: oral) Med Classific ation: Gastroint estinal Therapy Agents oxycodone 20 mg tablet 2023-04 00:00: 00 Yes [id number] 1 tablet DIRECTED 1 tablet DIRECTED (route: oral) Med Classific ation: Analgesic , Anti-infl ammatory or Antipyret ic OxyContin 30 mg tablet,david h resistant,e xtended release 2023-04 00:00: 00 Yes [id number] 1 tablet 2 TIMES DAILY 1 tablet 2 TIMES DAILY (route: oral) Med Classific ation: Analgesic , Anti-infl ammatory or Antipyret ic simvastatin 40 mg tablet 2023-04 00:00: 00 Yes [id number] 1 tablet BEDTIME 1 tablet BEDTIME (route: oral) Med Classific ation: Cardiovas cular Therapy Agents Trelegy Ellipta 100 mcg-62.5 mcg-25 mcg powder for inhalation 2023-04 00:00: 00 Yes [id number] 1 inhalat ion DAILY 1 inhalation DAILY [...] CVA, RISK FACTORS, AND METHODS TO MANAGE SKILLED NURSING EFFECTS OF CVA. [code = SKILLED NURSE TO INSTRUCT PATIENT/CAREGIVER ON WARNING SIGNS OF CVA, RISK FACTORS, AND METHODS TO MANAGE ZINC FURNACE CHARGER EFFECTS OF CVA.] Future Scheduled Test SKILLED [...] MAINTAIN SITUATIONAL AWARENESS AND WILL NOTIFY CLINICAL FAMILY ASSISTANT AND PHYSICIAN/PROVIDER WITH ANY CHANGE IN CONDITION. [code = SKILLED NURSE TO PERFORM ENVIRONMENTAL SAFETY RISK ASSESSMENT AND FALL RISK ASSESSMENT AND PROVIDE INSTRUCTION TO IMPLEMENT ENVIRONMENTAL SAFETY AND FALL PREVENTION STRATEGIES THROUGHOUT THE CERTIFICATION PERIOD. SKILLED NURSE WILL MAINTAIN SITUATIONAL AWARENESS AND WILL NOTIFY CLINICAL FAMILY ASSISTANT AND PHYSICIAN/PROVIDER WITH ANY CHANGE IN CONDITION.] [...] CARE WILL BE ESTABLISHED THAT MEETS PATIENT'S CORRECTION NEEDS AND INCLUDES PATIENT GOAL FOR HOME [...] 2024-03-15 00:00:00 2024-05-13 00:00:00 Outpatient CONCEPCION JACINTO [facility] [id number] 31.82
[2024-04-11 12:04] LABS: Hematocrit 46.4 % (42.0-52.0); Mean Corpuscular HGB Conc 32.3 g/dl (31.0-36.0); Mean Corpuscular Hemoglobin 31.6 pg (27.0-33.0); Mean Corpuscular Volume 97.9 fL (80.0-98.0); Platelet Count 189 X10*3/uL (160-400); Red Blood Count 4.74 X10*6/uL (4.60-5.80); Red Cell Distribution Width 14.2 % (11.0-16.0); White Blood Count 7.2 X10*3/uL (4.8-10.8)
[2024-04-11 12:11] LABS: Anion Gap 10 (12-20); Blood Urea Nitrogen 31 mg/dL (9-16); Calcium 8.8 mg/dL (8.4-10.2); Carbon Dioxide 28 mmol/L (22-29); Chloride 105 mmol/L (96-108); Estimated Glomerular Filt Rate 49; Glucose Random 142 mg/dL (60-115); Potassium 4.4 mmol/L (3.3-5.1); Sodium 139 mmol/L (135-145)
== END 2024-04-11 11:32 | disposition home or self-care (01) ==
LOC: HO.10HDL 11:31
PROVIDERS: Visit Provider Internal Medicine Hypertension Specialist
DX: N18.30 Chronic kidney disease, stage 3 unspecified (principal)
CPT/HCPCS: 36415; 80048; 85027

== ENCOUNTER 2024-05-08 12:59 | Outpatient (AMB) | payer MEDICARE, MEDICAID, SELFPAY ==
[2024-05-08 13:06] VITALS: BP 128/60; PULSE 100; O2SAT 93
--- NOTE | 2024-05-08 13:06 | MHC.OFFVIS ---
Vital Signs 05/08/24 13:06 BP 128/60 Blood Pressure Location Rt brachial Position Sitting Pulse 100 Pulse Source Pulse Oximeter Pulse Oximetry (%) 93 Oxygen Delivery Method Room Air Intake Visit Reasons: Abnormal CT scan/COPD Refined Syrup Operator Required: No Medication Nurse: Medication Nurse offered & declined Accompanied by: Family/Other Allergies adhesive Allergy (Severe, Verified 05/08/24 13:12) Rash morphine [MORPHINE] Allergy (Severe, Verified 05/08/24 13:12) NAUSEA codeine [CODEINE] Allergy (Intermediate, Verified 05/08/24 13:12) RASH ibuprofen [From MOTRIN] Allergy (Unknown, Verified 05/08/24 13:12) told to avoid due to kidneys Medication List - Last Reconciled 05/08/24 by Kathie Chen LPN allopurinol 2 tabs PO DAILY aspirin 81 mg PO DAILY carisoprodol 2 tabs PO TID carvedilol 6.25 mg PO BID clopidogrel 75 mg PO DAILY dapagliflozin propanediol (Farxiga) 10 mg PO DAILY 90 days miyorxitvbp-clzrqqpku-ashvzdua 100-62.5-25 mcg (Trelegy Ellipta) 1 ea PO DAILY furosemide 20 mg PO DAILY glipizide ER 1 tab PO BID lorazepam 1 mg PO TID losartan 50 mg PO DAILY omega 3-dlh-fwi-fish oil 1,000 (120-180) mg (Fish Oil) 1 cap PO DAILY omeprazole 1 cap PO DAILY@0630 ondansetron 4 mg PO Q8H PRN oxycodone ER (OxyContin) 30 mg PO BID oxycodone ER (OxyContin) 20 mg PO DAILY@1500 simvastatin 40 mg PO BEDTIME HPI HPI Abnormal CT scan/COPD: Details: Zane is a pleasant 79-year-old male, former smoker with 30 pack year history quit over 20 years ago with underlying history of COPD, CVA (most recent 11/08/22 received tPA), and diabetes mellitus, CHF, and KAREN noncompliant with CPAP. He has been suboptimally controlled on Trelegy 100 mcg and albuterol MDI. At baseline, he reports dyspnea with moderate exertion, wheezing, chest tightness, which he uses 2L NC intermittently and an occasional nonproductive cough, using albuterol PRN with good effect. Oxygen was prescribed by PCP and his DME is [facility]. He is accompanied by two daughters and today, using a wheelchair for ambulation. Family reports increased dyspnea and more frequent occurrences of hypoxia, lowest down to 73% on room air a few days ago. He has been using 3L NOC. He previously was on CPAP therapy for KAREN and not interested in restarting therapy. Since the last visit, he was seen at [facility] in February 2024 for worsening dyspnea on exertion, chest CT revealed new posterior subpleural right upper lobe lobe nodular consolidation measuring 2 cm. New irregular subpleural nodule right upper lobe measuring 1 cm. Infectious or inflammatory etiologies should be considered. Last chest CT 06/2022. [facility] Medical History Carotid stenosis, right TIA (transient ischemic attack) Chronic renal failure (CRF), stage 3 (moderate) LBBB (left bundle branch block) Cardiomyopathy CHF (congestive heart failure) Chronic back pain Sleep apnea Oxygen dependent Lung nodule CVA (cerebral vascular accident) Surgical History History of lithotripsy History of vasectomy History of back surgery Family History Father Cirrhosis Mother Myocardial infarction Enlarged heart Sister No problems noted. Sister No problems noted. Social History (Updated 05/08/24 @ 13:14 by Kathie Chen LPN) Household Members: Spouse Household Members Other:: 8 Housing: House Do you presently have visiting nurse or other home services: No (not at present, services will restart later this month.) Alcohol intake: former Year quit: 1979 Patient Tobacco Use Status: Former Tobacco user Tobacco use type: Cigarette Years Smoked: ~20 Quit 36 years ago e-Cigarette/Vaping Use: Never Used Advance Directives Date on File: 03/27/23 service: Yes Current occupational status: retired Review of Systems Const Denies chills, Denies excessive sweating, Denies fever(s), Denies headache(s) and Denies night sweats Eyes Denies dry eyes, Denies irritation and Denies itchy eyes ENT Reports Normal hearing present, Denies headache(s), Denies nasal congestion, Denies nasal discharge, Denies post nasal drip and Denies sore throat Card Denies chest pain, Denies chest pain at rest, Denies chest pain with activity, Denies claudication, Denies leg edema, Denies orthopnea and Denies paroxysmal nocturnal dyspnea Resp Denies chest congestion, Denies excessive phlegm production, Denies pain on inspiration, Denies pain with cough and Denies stridor Musc Denies myalgias Neuro Reports Normal hearing present and Denies headache(s) Endo Denies excessive sweating Fito/Lymph Denies lymphadenopathy Aller/Immun Denies itchy eyes and Denies seasonal rhinorrhea Physical Exam Vital Signs: Last Vital Signs Pulse 100 05/08/24 13:06 BP 128/60 05/08/24 13:06 Pulse Ox 93 05/08/24 13:06 Oxygen Delivery Method Room Air 05/08/24 13:06 Const General: cooperative, comfortable, no acute distress, well developed and alert Nutritional Appearance: obese Orientation/consciousness: patient oriented x3 HEENT Head: Yes normal to inspection, Yes normocephalic and Yes atraumatic Ears: hearing grossly normal bilaterally and external ears normal Eyes General: appearance normal, both eyes and all related structures Eyelids: Yes eyelids normal Sclerae: sclerae normal EOM: EOMs intact bilaterally Neck Neck: Yes normal visual inspection and Yes no lymphadenopathy Lymphatic: no lymphadenopathy noted Chest Chest palpation & inspection: normal inspection of the chest Resp Effort & Inspection: normal respiratory effort, able to speak in complete sentences, no audible wheezes, no cough, no stridor, not tachypneic, no tripod positioning and no use of accessory muscles Auscultation: diminished lung sounds Cardio Jugular venous distension: no JVD Rate: regular rate Rhythm: regular rhythm Skin Other: warm, dry General skin exam: no rashes or lesions noted Neuro General: patient oriented x3 Cranial nerves: Yes Normal hearing present Cognition (Neuro): normal cognition Gait exam (Neuro): Normal gait present Extrem General: Yes normal to inspection, Yes capillary refill normal, Yes no clubbing, cyanosis or edema and Yes no pedal edema Psych Appearance: grossly normal and well kempt Speech and movement: Normal speech and movement present and Clear speech present Affect: normal affect Attitude: cooperative Thought process: Normal thought process present Thought content: Normal thought content present Insight: Good insight present (Psych) Judgement: Good judgement present (Psych) Results Reviewed Results Reviewed: [address] [address] [address] Scan Report Signed with Addenda Patient: Zane Delgado MR#: [id number] : 1945 Acct:[id number] Age/Sex: 78 / M ADM Date: 03/12/24 Loc: HO.ED Attending Dr: Ordering Physician: Bonny Clemons Date of Service: 03/12/24 Procedure(s): CT chest w IV con Accession Number(s): [id number] cc: Mj Bonilla MD; Bonny Clemons~ ADDENDUM ADDENDUM #1 Bilateral upper back subcutaneous nodules measuring 1.0 cm. Mid back subcutaneous nodule measuring 2.4 x 1.4 cm. Electronically signed by: Drew Villarreal MD 03/12/2024 03:49 PM [facility] Addendum Dictated By: Karie Villarreal MD Addendum Signed By: <Electronically signed by Karie Villarreal MD in OV> 03/12/24 1549 Addendum Cosigned By: DD/ TD/TT: 03/12/24 EXAMINATION: CT CHEST WITH CONTRAST CLINICAL INFORMATION: Shortness of breath. COMPARISON: July 19, 2022 TECHNIQUE: Multidetector volumetric CT imaging of the chest was obtained after the administration of 65 mL of Omnipaque 350 intravenous contrast without immediate adverse reactions. Axial MIP volume rendering provided. Sagittal and coronal reformatted images were obtained. This CT examination was performed using dose optimization techniques as appropriate, variously including the following: *Automated exposure control *Adjustment of mA and/or kV according to patient size (this includes techniques or standardized protocols for targeted exams where dose is matched to indication/reason for exam; i.e. extremities or head) *Use of iterative reconstruction technique DLP: 439 mGy-cm FINDINGS: LUNGS: Moderate centrilobular emphysema. Stable 8 mm solid nodule in the lingula on image 373 of series 5. Stable 6 mm subpleural nodule right upper lobe on image 128 of series 5. New posterior subpleural right upper lobe nodular consolidation measures 2.0 cm on image 160 of series 5. New irregular subpleural nodule right upper lobe measuring 1.0 cm on image 78 of series 5. Diffuse bronchial wall thickening. Central airways are patent. MEDIASTINUM: Imaged thyroid gland is heterogeneous. No bulky axillary, hilar or mediastinal lymphadenopathy. Great vessels are of normal caliber. Atherosclerotic changes of the thoracic aorta. Heart size is normal. No pericardial effusion. Marked coronary artery calcification. Elevated right hemidiaphragm. PLEURA: No pleural effusion. UPPER ABDOMEN: Heterogeneous appearance of the spleen. Decreased attenuation of the hepatic parenchyma. No adrenal mass. Atrophic changes of the right kidney. OSSEOUS STRUCTURES: No destructive bone lesions. CT/CT chest w IV con IMPRESSION: New posterior subpleural right upper lobe lobe nodular consolidation measuring 2 cm. New irregular subpleural nodule right upper lobe measuring 1 cm. Infectious or inflammatory etiologies should be considered. Follow-up imaging in 3 months is advised. 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 Will also send DuoNeb to use PRN, and was given nebulizer for home use. At this time unable to perform 6MWT due to significant leg weakness, which he is being evaluated by PCP for. Encouraged to use 2L with any exertion and will send for overnight oximetry to ensure that 3L NOC is optimal. In regards to chest CT findings from 02/2024. He was experiencing an exacerbation during this period and recommendations were made for repeat chest CT in 3 months as findings were possibly related to infectious/inflammatory effect. All questions were answered and patient is in agreement of plan. Will follow up in 4-6 weeks or sooner if needed. Orders: Orders CT chest wo IV con Today R91.1 - Solitary pulmonary nodule Overnight Pulse Oximetry Today G47.34 - Idiopathic sleep related nonobstructive alveolar hypoventilation Medications: Discontinued rcuvucqvsmr-decstlmza-przjcukb 100-62.5-25 mcg (Trelegy Ellipta) Discontinued Reason: Patient Completed Course 1 ea PO DAILY 60 ea 0RF J44.9 - Chronic obstructive pulmonary disease, unspecified Coding Level of Care Code Est Pt Level 4 (50418) Complex EM visit Add On G2211 Diagnoses COPD (chronic obstructive pulmonary disease) J44.9 Obstructive sleep apnea G47.33 Dyspnea on exertion R06.09
== END 2024-05-08 13:45 | disposition home or self-care (01) ==
PROVIDERS: PCP Internal Medicine; Visit Provider Nurse Practitioner Family
DX: J44.9 Chronic obstructive pulmonary disease, unspecified (principal); G47.33 Obstructive sleep apnea (adult) (pediatric); R06.09 Other forms of dyspnea
CPT/HCPCS: 99214; G2211

== ENCOUNTER → 2024-05-08 12:59 | Outpatient (BNVA) | payer MEDICARE, MEDICAID, SELFPAY | PROVIDERS: PCP Internal Medicine; Visit Provider Nurse Practitioner Family | DX: J44.9 Chronic obstructive pulmonary disease, unspecified (principal); G47.33 Obstructive sleep apnea (adult) (pediatric); R06.09 Other forms of dyspnea | CPT/HCPCS: 99212 ==

== ENCOUNTER 2024-05-22 14:41 | Outpatient (AMB) | payer MEDICARE, MEDICAID, SELFPAY ==
[2024-05-22 14:54] VITALS: BP 130/70; PULSE 85; BMI 35.2
--- NOTE | 2024-05-22 14:54 | MHC.OFFVIS ---
Vital Signs 05/22/24 14:54 Height 5 ft 11 in Weight 252 lb 10.396 oz BMI 35.2 BP 130/70 Blood Pressure Location Rt brachial Position Sitting Pulse 85 Pulse Source Monitor Intake Visit Reasons: 6 mth f/up r/s 04/03/24 Intake Note: 6mth f/up Hat Sizer Required: No Accompanied by: Spouse Allergies adhesive Allergy (Severe, Verified 05/08/24 13:12) Rash morphine [MORPHINE] Allergy (Severe, Verified 05/08/24 13:12) NAUSEA codeine [CODEINE] Allergy (Intermediate, Verified 05/08/24 13:12) RASH ibuprofen [From MOTRIN] Allergy (Unknown, Verified 05/08/24 13:12) told to avoid due to kidneys Medication List - Last Reconciled 05/22/24 by Edison Graham MD allopurinol 2 tabs PO DAILY aspirin 81 mg PO DAILY carisoprodol 2 tabs PO TID carvedilol 6.25 mg PO BID clopidogrel 75 mg PO DAILY dapagliflozin propanediol (Farxiga) 10 mg PO DAILY 90 days vfeskqclzns-ylrnzyerw-onjecxzp 200-62.5-25 mcg (Trelegy Ellipta) 1 inh inhalation DAILY furosemide 20 mg PO DAILY glipizide ER 1 tab PO BID ipratropium-albuterol 0.5 mg-3 mg(2.5 mg base)/3 mL 3 mL inhalation Q6H PRN lorazepam 1 mg PO TID losartan 50 mg PO DAILY omega 5-vgv-gyr-fish oil 1,000 (120-180) mg (Fish Oil) 1 cap PO DAILY omeprazole 1 cap PO DAILY@0630 ondansetron 4 mg PO Q8H PRN oxycodone ER (OxyContin) 30 mg PO BID oxycodone ER (OxyContin) 20 mg PO DAILY@1500 simvastatin 40 mg PO BEDTIME HPI Comments Details: 79-year-old gentleman who was recently admitted to [facility] urine tract infection and new onset congestive heart failure. He underwent echocardiography which showed EF of 30-35%. He was started on guideline directed medical therapy. He also was noted to have left bundle-branch block. Since discharge he has been doing well. He is denying any significant shortness of breath. No orthopnea or PND. He has been taking medications regularly. Denying any significant chest discomfort. He has background of COPD. 07/07/2023: Returns for follow-up. In September 2022 was taken for cardiac catheterization which revealed noticed moderate disease in the RCA and circumflex arteries. He had EF of 30 35% at that time and it was felt that he has nonischemic cardiomyopathy. He was started on guideline directed medical therapy and repeat echocardiography showed that his ejection fraction has improved from June to October 2022. His EF was back to normal. In March 2023 got admitted to hospital with pneumonia. He is currently walking with walker and cane. He has some left leg issues and will be starting physiotherapy. He is saying that he gets short of breath easily when he is walking with the walker. Taking medications regularly otherwise. 05/22/2024: He is here for follow-up. He has lung disease and follows closely with pulmonology. He is using nebulizers. He is saying his breathing is stable. No chest discomfort. No orthopnea or PND. Repeat echocardiography in 11/12/2022 showed improvement in the ejection fraction. He had nonischemic cardiomyopathy. [facility] Medical History Carotid stenosis, right TIA (transient ischemic attack) Chronic renal failure (CRF), stage 3 (moderate) LBBB (left bundle branch block) Cardiomyopathy CHF (congestive heart failure) Chronic back pain Sleep apnea Oxygen dependent Lung nodule CVA (cerebral vascular accident) Surgical History History of lithotripsy History of vasectomy History of back surgery Family History Father Cirrhosis Mother Myocardial infarction Enlarged heart Sister No problems noted. Sister No problems noted. Social History (Updated 05/08/24 @ 13:14 by Kathie Chen LPN) Household Members: Spouse Household Members Other:: 8 Housing: House Do you presently have visiting nurse or other home services: No (not at present, services will restart later this month.) Alcohol intake: former Year quit: 1979 Patient Tobacco Use Status: Former Tobacco user Tobacco use type: Cigarette Years Smoked: ~20 Quit 36 years ago e-Cigarette/Vaping Use: Never Used Advance Directives Date on File: 03/27/23 service: Yes Current occupational status: retired Review of Systems Const Denies chills, Denies fatigue, Denies fever(s), Denies frequent falls, Denies weakness, Denies weight gain and Denies weight loss ENT Denies dizziness Card Denies chest pain, Denies leg edema, Denies lightheadedness, Denies palpitations, Denies dyspnea and Denies dyspnea on exertion Resp Denies cough, Denies dyspnea and Denies dyspnea on exertion GI Denies hematochezia Musc Denies abnormal gait, Denies muscle weakness, Denies numbness, Denies radiating pain into limb and Denies tingling Neuro Denies abnormal gait, Denies dizziness, Denies frequent falls, Denies numbness, Denies tingling and Denies weakness Endo Denies fatigue and Denies palpitations Physical Exam Vital Signs: Last Vital Signs Pulse 85 05/22/24 14:54 BP 130/70 05/22/24 14:54 BMI result Body Mass Index 35.2 GENERAL APPEARANCE: in no acute distress, pleasant. NECK: no carotid bruit, no jugular venous distention. SKIN: no suspicious lesions, warm and dry. HEART: no murmurs, regular rate and rhythm. LUNGS: clear to auscultation bilaterally. ABDOMEN: soft, nontender. EXTREMITIES: no edema. PERIPHERAL PULSES: equal. NEUROLOGIC: No gross deficits, AAO X 3 Office Procedures EKG Details: Sinus rhythm 85 beats per minute, normal axis, premature ventricular complexes, septal infarct, QTC 447 milliseconds. [id number], Complete Results Reviewed Results Reviewed: Transthoracic Echocardiogram Patient (Last, First, Middle): Yvonnemarsha Rodrick Degroot Gender: Male Date of : 1945 Age: 77 Procedure Date: 11/09/2022 Procedure Type: Transthoracic Echocardiogram Location: ICU Height: 182.88 cm Weight: 117.94 kg BSA: 2.38 m2 Heart Rate: 98 bpm BP: 160 / 87 mmHg Drainage Design Coordinator: SB Referring MD: Chelsi Woody MD Symptoms: new cva Study Quality: Fair/restricted mobility/supine/HOB up/back pain ECG Rhythm: Sinus Conclusions: - Normal left ventricular size and systolic function. The visually estimated ejection fraction is between 55-60%. - Normal right ventricular cavity size and systolic function. - The left atrium is normal in size. There is no evidence of interatrial shunt by agitated saline. - There is moderate mitral annular calcification. Findings Procedure Information Contrast agent, definity, is being given per protocol without apparent complications. The quality of the study was technically difficult. The study quality is limited by patients body habitus. Left Ventricle Normal left ventricular size and systolic function. The visually estimated ejection fraction is between 55-60%. Abnormal diastolic function is noted. Spectral Doppler is indicative of an impaired relaxation filling pattern. Filling pressures are indeterminate. Right Ventricle Normal right ventricular cavity size and systolic function. Atria The left atrium is normal in size. There is no evidence of interatrial shunt by agitated saline. The right atrium is normal in size. Aortic Valve The aortic valve was not well visualized. There is no aortic valve stenosis. There is no aortic valve regurgitation. Mitral Valve There is moderate mitral annular calcification. There is no mitral valve regurgitation. There is no mitral valve stenosis. Pulmonic Valve The pulmonic valve was not well visualized. Tricuspid Valve The tricuspid valve was not well visualized. Normal right atrial pressure. Great Vessels The aorta was not well visualized. The pulmonary artery was not well visualized. Venous The inferior vena cava is normal in size and collapses greater than 50% with inspiration. Pericardium/Pleural There is no evidence of pericardial effusion. Prior Study Comparison Changes noted compared to prior study dated: 07/20/2022. Limited study, LV function has normalized (was 32% previously). Measurements 2D Linear Measurements LVOT Diam: 2.10 3.0+(-)1.3 cm 2D Systolic Function EF 4C: 57.20 >55% Mitral Valve MV VTI: 0.25 MV Pk Neel: 1.35 MV Mn Neel: 0.81 MV Pk Grad: 7.00 MV Mn Grad: 3.00 MV Pk E: 0.87 MV PK A: 1.24 MV Decel Time: 147.00 E/A: 0.70 E'Medial: 8.05 E/E' Med: 10.90 PHT: 43.00 MVA PHT: 5.12 MVA Continuity: 3.22 Decel [place]: 5.93 Aortic Valve AoV Pk Neel: 1.39 AoV Mn Neel: 1.01 AoV VTI: 0.26 AoV Pk Grad: 8.00 Aov Mn Grad: 5.00 DARI Cont.VTI: 3.06 LVOT LVOT Pk Neel: 1.04 LVOT Mn Neel: 0.71 LVOT VTI: 0.23 LVOT Pk Grad: 4.00 LVOT Mn Grad: 2.00 LVOT Diam: 2.10 LVOT Area: 3.46 Diastolic Function MV Pk E: 0.87 MV Pk A: 1.24 E/A: 0.70 E'Medial: 8.05 E/E' Med: 10.90 Right Ventricle TAPSE (mm): 23.10 TVS' Neel: 21.00 Tricuspid Valve RA Press: 3.00 Pulmonary Veins Pulm Vein S/D 1.30 Updated in Other Vendor System with Status of Final Edison Graham MD electronically signed on 11/09/2022 2:52:32 PM with status of Final Assessment & Plan Assessment & Plan (1) Congestive heart failure: Code(s): I50.9 - Heart failure, unspecified Category: Medical (2) Chronic renal failure (CRF), stage 3 (moderate): Code(s): N18.30 - Chronic kidney disease, stage 3 unspecified Category: Medical (3) Cardiomyopathy: Comment: Resolved Code(s): I42.9 - Cardiomyopathy, unspecified Category: Medical Plan [age] year gentleman with background history of nonischemic cardiomyopathy which improved with medical management. He is currently euvolemic and most symptoms are related to underlying lung disease. He has COPD and follows closely with pulmonology. He also has vascular disease with previous carotid stenosis and currently takes aspirin and Plavix. He is tolerating medications well. No concerning symptoms of follow-up. He will see us back in 6 months. Thank you for allowing me to participate in the care of your patient. Please feel free to contact me if you have any questions. Coding Level of Care Code Est Pt Level 4 (11827) Diagnoses Congestive heart failure I50.9 Chronic renal failure (CRF), stage 3 (moderate) N18.30 Cardiomyopathy I42.9 CPT Codes EKG - CPT: 06977-[id number], Complete ([id number])
--- OUTSIDE RECORDS SUMMARY | 2024-05-22 19:05 | XMS_ITS | Clinical Summary ---
Author Organization [facility] Address [address] [place] [address] Phone Care Team Providers Care Roof Tiler Name Role Phone Mj Bonilla MD Primary Care Provider [phone] Allergies Active Allergy Reactions Criticality Noted Date Comments Codeine 11/26/2022 Morphine 11/26/2022 Penicillins 11/26/2022 Medications allopurinol (ZYLOPRIM) 100 MG tablet Take 1 tablet by mouth 1 (one) time each day Active Ventolin HFA 108 (90 Base) MCG/ACT inhaler INHALE 2 PUFFS BY MOUTH EVERY 3 HOURS NEEDED 1 Active carisoprodol (SOMA) 350 MG tablet Take 2 tablets by mouth 3 (three) times a day Active LORazepam (ATIVAN) 1 MG tablet Take 1 mg by mouth 3 times a day 1 Active omeprazole (PriLOSEC) [address] capsule Take 1 capsule by mouth 1 (one) time each day Active OxyCONTIN 30 MG 12 hr abuse-deterrent tablet Take 1 tablet by mouth if needed 1 Active simvastatin (ZOCOR) 20 MG tablet Take 1 tablet by mouth 1 (one) time each day Active OxyCONTIN 20 MG 12 hr abuse-deterrent tablet Take 20 mg by mouth at bed time 1 Active ondansetron ODT (ZOFRAN-ODT) 4 MG dispersible tablet DISSOLVE 1 TABLET ON THE TONGUE EVERY 8 HOURS 3 Active furosemide (LASIX) 20 MG tablet Take 20 mg by mouth 1 (one) time each day 3 Active Jardiance 10 MG tablet Take 10 mg by mouth 1 (one) time each day 3 Active glipiZIDE (GLUCOTROL XL) 2.5 MG 24 hr tablet Take 2.5 mg by mouth in the morning and 2.5 mg in the evening. Do not crush, chew, or split.. Active clopidogrel (PLAVIX) 75 MG tablet Take 75 mg by mouth 1 (one) time each day Active Empagliflozin (Jardiance) 10 MG tablet Take 10 mg by mouth 1 (one) time each day in the morning Active cefpodoxime (VANTIN) 100 MG tablet Take 100 mg by mouth in the morning and 100 mg in the evening. Active tamsulosin (Flomax) 0.4 MG 24 hr capsule Take 0.4 mg by mouth 1 (one) time each day Active carvedilol (COREG) 6.25 MG tablet Take 1 tablet (6.25 mg total) by mouth in the morning and 1 tablet (6.25 mg total) in the evening. Take with meals. 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 07/04/2020 Chronic nephritic syndrome 07/04/2020 Chronic kidney disease stage 3 07/04/2020 Hypertensive heart disease without congestive he art failure 07/04/2020 Immunizations Name Administration Dates Next Due Pneumococcal Polysaccharide 07/27/2013 Family History Medical History Relation Comments Heart disease Mother Diabetes Sibling 1 Dementia Sibling 2 Relation Status Comments Father Mother Sibling 1 Sibling 2 Social History Tobacco Use Types Packs/Day Years Used Date Smoking Tobacco: Former Cigarettes Smokeless Tobacco: Never Tobacco Cessation:Counseling Given: No Comments:Smoking History Info:Every day Sex and Gender Information Value Date Recorded Sex Assigned at Not on file Legal Sex Male 5:07 PM EST Gender Identity Not on file Sexual Orientation Not on file Last Filed Vital Signs Vital Sign Reading Time Taken Comments Blood Pressure 148/80 12/21/2022 1:03 PM EDT Pulse 101 12/21/2022 1:03 PM EDT Temperature - - Respiratory Rate - - Oxygen Saturation 94% 12/21/2022 1:03 PM EDT Inhaled Oxygen Concentration - - Weight 113 kg (250 lb) 12/21/2022 1:03 PM EDT Height 182.9 cm (6') 08/10/2022 3:11 PM EDT Body Mass Index 33.91 08/10/2022 3:11 PM EDT Plan of Treatment Health Maintenance Due Date Last Done Comments Pneumococcal Vaccine: 65+ Ye ars (2 of 2 - PCV) 07/27/2014 07/27/2013 Influenza Vaccine (#1) 2023 Hepatitis B Vaccine Aged Out No longe r eligible based on patient's age to complete this topic [place] Care Teams Roof Tiler Relationship Specialty Start Date End Date Mj Bonilla MD [address] [place] [address] PCP - General 05/06/20
--- OUTSIDE RECORDS SUMMARY | 2024-05-22 19:05 | XMS_ITS | Encounter Summary ---
Author Organization [facility] Address [address] [place] [address] Phone Care Team Providers Care Blueprinter Name Role Phone Mj Bonilla MD Primary Care Provider [phone] Encounter Details Date Type Department Care Team (Late st Contact Info) Description 08/25/2022 Telephone [facility] [address] [place] [address] Caty Krishna Social History Tobacco Use Types Packs/Day Years Used Date Smoking Tobacco: Former Cigarettes Smokeless Tobacco: Never Comments:Smoking History Inf o:Every day Sex and Gender Information Value Date Recorded Sex Assigned at Not on file Legal Sex Male 5:07 PM EST Gender Identity Not on file Sexual Orientation Not on file documented as of this encounter Miscellaneous Notes * Telephone Encounter - Caty Manley - 08/31/2022 9:50 AM EDT Pls advise * Telephone Encounter - Caty Krishna - 08/25/2022 10:16 AM EDT PT's would like a CB to go over a procedure her is going to have next month on 10/13/22. PT's says that her husbands heart is currently working at 30% and this appointment is to seeif he might need a pacemaker or if pt has a clogged artery . PT is worried and would like to speak to you in regards to this, please advise. documented in this encounter Plan of Treatment Not on file documented as of this encounter Visit Diagnoses Not on filedocumented in this encounter Care Teams Blueprinter Relationship Specialty Start Date End Date Mj Bonilla MD [address] [place] [address] PCP - General 05/06/20 documented as of this encounter
== END 2024-05-22 15:15 | disposition home or self-care (01) ==
PROVIDERS: Visit Provider Internal Medicine Cardiovascular Disease
DX: I50.9 Heart failure, unspecified (principal); N18.30 Chronic kidney disease, stage 3 unspecified; I42.9 Cardiomyopathy, unspecified
CPT/HCPCS: 93010; 99214

== ENCOUNTER → 2024-05-22 14:41 | Outpatient (BNVA) | payer MEDICARE, MEDICAID, SELFPAY | PROVIDERS: Visit Provider Internal Medicine Cardiovascular Disease | DX: I50.9 Heart failure, unspecified (principal); I42.9 Cardiomyopathy, unspecified; N18.30 Chronic kidney disease, stage 3 unspecified; Z87.891 Personal history of nicotine dependence | CPT/HCPCS: 93005; 99212 ==

== ENCOUNTER 2024-07-07 13:48 | Outpatient (REF) | payer MEDICARE, MEDICAID, SELFPAY ==
--- NOTE | ~2024-07-07 | XR_ITS ---
EXAMINATION: XR KNEE, LEFT CLINICAL INFORMATION: LEFT KNEE PAIN, HX FALL COMPARISON: None available. TECHNIQUE: Four views of the left knee. FINDINGS: No fracture or dislocation. Normal bone mineralization. Within the medial aspect, distal femoral metadiaphysis, there is a asymmetrically/cortically oriented predominately sclerotic bone lesion. No endosteal scalloping or permeative bony change. Wide zone of transition is present, however. Normal alignment. Mild medial compartment joint space narrowing. Lateral and patellofemoral compartment appear preserved. Minimal spurring of the tibial spines. No significant joint effusion. Soft tissues demonstrate vascular calcifications. XR/XR knee LT 4V IMPRESSION: 1. No fracture or dislocation. Mild medial compartment osteoarthrosis. 2. There is a peripherally based predominantly sclerotic bone lesion medial distal femoral metadiaphysis. This demonstrates a wide zone of transition, without endosteal scalloping, or permeative bony change. No soft tissue component evident. This has some benign features although a wide zone of transition is slightly concerning. Recommend correlation with MRI and/or bone scan. Electronically signed by: Brenden Lr MD 07/07/2024 02:48 PM EDT
--- NOTE | ~2024-07-07 | XR_ITS ---
EXAMINATION: XR KNEE, RIGHT CLINICAL INFORMATION: RIGHT KNEE PAIN. HX FALL COMPARISON: 04/01/2018. TECHNIQUE: Four views of the right knee. FINDINGS: No fracture, dislocation, or suspicious bone lesion. Normal bone mineralization. Normal alignment. Mild medial compartment joint space narrowing. Lateral and patellofemoral appear normal. Minimal spurring of the tibial spines. No significant joint effusion. Soft tissues demonstrate vascular calcifications. XR/XR knee RT 4V IMPRESSION: 1. No acute bony abnormalities. 2. Mild medial compartment osteoarthrosis. Electronically signed by: Brenden Lr MD 07/07/2024 02:51 PM EDT
--- OUTSIDE RECORDS SUMMARY | 2024-07-07 15:33 | XMS_ITS | Encounter Summary ---
Author Organization [facility] Address [address] [place] [address] Phone Care Team Providers Care Expeller Operator Name Role Phone Mj Bonilla MD Primary Care Provider [phone] Encounter Details Date Type Department Care Team (Late st Contact Info) Description 08/25/2022 Telephone [facility] [address] [place] [address] Caty Krishna Social History Tobacco Use [...] on filedocumented in this encounter Care Teams Expeller Operator Relationship Specialty Start Date End Date Mj Bonilla MD [address] [place] [address] PCP - General 05/06/20 documented as of this encounter
--- OUTSIDE RECORDS SUMMARY | 2024-07-07 15:33 | XMS_ITS | Continuity of Care Document ---
Author Name [facility] Organization [facility] Care Team Providers Care Developmental Behavioral Physician Name Role Phone [facility] Unavailable Unavailable Social History Combined list of [...]
--- OUTSIDE RECORDS SUMMARY | 2024-07-07 15:33 | XMS_ITS | Clinical Summary ---
Author Organization [facility] Address [address] [place] [address] Phone Care Team Providers Care Hearing Examiner Name Role Phone Mj Bonilla MD Primary Care Provider [phone] Allergies Active Allergy Reactions Criticality Noted Date [...] [place] Care Teams Hearing Examiner Relationship Specialty Start Date End Date Mj Bonilla MD [address] [place] [address] PCP - General 05/06/20
== END 2024-07-07 13:49 | disposition home or self-care (01) ==
LOC: HO.HMGCX 13:48
PROVIDERS: PCP Internal Medicine; Visit Provider Internal Medicine
DX: M25.561 Pain in right knee (principal); M25.562 Pain in left knee
CPT/HCPCS: 73564

== ENCOUNTER → 2024-07-07 14:00 | Outpatient (BNV) | payer MEDICARE, MEDICAID, SELFPAY | PROVIDERS: PCP Internal Medicine; Visit Provider Radiology Diagnostic Radiology | DX: M25.562 Pain in left knee (principal); M25.561 Pain in right knee | CPT/HCPCS: 73564 ==

== ENCOUNTER 2024-07-11 13:13 | Outpatient (AMB) | payer MEDICARE, MEDICAID, SELFPAY ==
--- NOTE | 2024-07-11 13:07 | HO.NEPHOV ---
Vital Signs 07/11/24 13:09 Height 5 ft 11 in Intake Visit Reasons: Chronic renal failure/ Conf Utility Worker Roller Shop Required: No Accompanied by: Spouse Allergies adhesive Allergy (Severe, Verified 07/11/24 13:08) Rash morphine [MORPHINE] Allergy (Severe, Verified 07/11/24 13:08) NAUSEA codeine [CODEINE] Allergy (Intermediate, Verified 07/11/24 13:08) RASH ibuprofen [From MOTRIN] Allergy (Unknown, Verified 07/11/24 13:08) told to avoid due to kidneys Medication List - Last Reconciled 07/11/24 by Eddie Marsh MD allopurinol 2 tabs PO DAILY aspirin 81 mg PO DAILY carisoprodol 2 tabs PO TID carvedilol 6.25 mg PO BID clopidogrel 75 mg PO DAILY dapagliflozin propanediol (Farxiga) 10 mg PO DAILY 90 days tsudgwpwiav-xhcxvhbex-iiviukop 200-62.5-25 mcg (Trelegy Ellipta) 1 inh inhalation DAILY furosemide 20 mg PO DAILY glipizide ER 1 tab PO BID ipratropium-albuterol 0.5 mg-3 mg(2.5 mg base)/3 mL 3 mL inhalation Q6H PRN lorazepam 1 mg PO TID losartan 50 mg PO DAILY omega 4-zhn-wko-fish oil 1,000 (120-180) mg (Fish Oil) 1 cap PO DAILY omeprazole 1 cap PO DAILY@0630 ondansetron 4 mg PO Q8H PRN oxycodone ER (OxyContin) 30 mg PO BID oxycodone ER (OxyContin) 20 mg PO DAILY@1500 simvastatin 40 mg PO BEDTIME HPI Comments Details: 78 yr old man with 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 Sister No problems noted. Social History Household Members: Spouse Household Members Other:: 8 Housing: House Do you presently have visiting nurse or other home services: No (not at present, services will restart later this month.) Alcohol intake: former Year quit: 1979 Patient Tobacco Use Status: Former Tobacco user Tobacco use type: Cigarette Years Smoked: ~20 Quit 36 years ago e-Cigarette/Vaping Use: Never Used Advance Directives Date on File: 03/27/23 service: Yes Current occupational status: retired Telehealth Telehealth Telehealth Platform: Telephone Location of provider rendering services: practice address Location of patient: address on file Patient Identification confirmed using: Name, : Yes Telehealth method: voice only Results Reviewed Nephrology Results: Hgb 15.0 g/dl (14.0-18.0) 04/11/24 WBC 7.2 X10*3/uL (4.8-10.8) 04/11/24 Plt Count 189 X10*3/uL (160-400) 04/11/24 Sodium 139 mmol/L (135-145) 04/11/24 Potassium 4.4 mmol/L (3.3-5.1) 04/11/24 Chloride 105 mmol/L (96-108) 04/11/24 Carbon Dioxide 28 mmol/L (22-29) 04/11/24 BUN 31 mg/dL (9-16) H 04/11/24 Creatinine 1.40 mg/dL (0.5-1.4) 04/11/24 Calcium 8.8 mg/dL (8.4-10.2) 04/11/24 Urine Protein Negative mg/dL (Neg-Trace) 03/26/24 Assessment & Plan Assessment & Plan (1) Chronic renal failure (CRF), stage 3 (moderate): Code(s): N18.30 - Chronic kidney disease, stage 3 unspecified Category: Medical Plan Due to IGA nephropathy s/p super imposed MARICHUY due to dehydration in a setting of diarrhea Renal fx has improved Watch BP at home Avoid nephrotoxins/NSAIDS Orders: Orders Comprehensive Met. Panel Today N18.30 - Chronic kidney disease, stage 3 unspecified Complete Blood Count no Diff Today N18.30 - Chronic kidney disease, stage 3 unspecified Coding Level of Care Code Tele Est Pt Level 3 (57582) Diagnoses Chronic renal failure (CRF), stage 3 (moderate) N18.30
== END 2024-07-11 13:29 | disposition home or self-care (01) ==
LOC: HO.HKA 13:14
PROVIDERS: PCP Internal Medicine; Visit Provider Internal Medicine Hypertension Specialist
DX: N18.30 Chronic kidney disease, stage 3 unspecified (principal)
CPT/HCPCS: 99213

== ENCOUNTER 2024-09-29 11:57 | Outpatient (REF) | payer MEDICARE, MEDICAID, SELFPAY ==
--- OUTSIDE RECORDS SUMMARY | 2024-09-29 12:29 | XMS_ITS | Encounter Summary ---
Author Organization [facility] Address [address] [place] [address] Phone Care Team Providers Care Information Assurance Manager Name Role Phone Mj Bonilla MD Primary Care Provider [phone] Encounter Details Date Type Department Care Team (Late st Contact Info) Description 08/25/2022 Telephone [facility] [address] [place] [address] Caty Krishna Social History Tobacco Use [...] on filedocumented in this encounter Care Teams Information Assurance Manager Relationship Specialty Start Date End Date Mj Bonilla MD [address] [place] [address] PCP - General 05/06/20 documented as of this encounter
[2024-09-29 13:34] LABS: Hematocrit 45.3 % (42.0-52.0); Hemoglobin 14.2 g/dl (14.0-18.0); Mean Corpuscular HGB Conc 31.3 g/dl (31.0-36.0); Mean Corpuscular Hemoglobin 31.2 pg (27.0-33.0); Mean Corpuscular Volume 99.6 fL (80.0-98.0); Mean Platelet Volume 10.8 fL (9.4-12.4); Platelet Count 196 X10*3/uL (160-400); Red Blood Count 4.55 X10*6/uL (4.60-5.80); Red Cell Distribution Width 14.5 % (11.0-16.0); White Blood Count 6.9 X10*3/uL (4.8-10.8)
[2024-09-29 14:40] LABS: Alanine Aminotransferase 16 U/L (0-40); Albumin Level 3.9 g/dL (3.5-5.0); Alkaline Phosphatase 207 U/L (39-117); Anion Gap 11 (12-20); Aspartate Amino Transferase 20 U/L (5-37); Bilirubin Total 0.3 mg/dL (0.0-1.0); Blood Urea Nitrogen 47 mg/dL (9-16); Carbon Dioxide 30 mmol/L (22-29); Chloride 106 mmol/L (96-108); Estimated Glomerular Filt Rate 36; Glucose Random 109 mg/dL (60-115); Potassium 4.4 mmol/L (3.3-5.1); Sodium 143 mmol/L (135-145); Total Protein 6.8 g/dL (6.5-8.0)
== END 2024-09-29 11:58 | disposition home or self-care (01) ==
LOC: HO.HMGCLDS 11:57
PROVIDERS: PCP Internal Medicine; Visit Provider Internal Medicine Hypertension Specialist
DX: N18.30 Chronic kidney disease, stage 3 unspecified (principal)
CPT/HCPCS: 36415; 80053; 85027

== ENCOUNTER 2024-10-05 14:03 | Outpatient (AMB) | payer MEDICARE, MEDICAID, SELFPAY ==
[2024-10-05 14:10] VITALS: BP 116/62; PULSE 81; O2SAT 91; BMI 33.6
--- NOTE | 2024-10-05 14:10 | HO.NEPHOV_ITS ---
Vital Signs 10/05/24 14:10 Height 5 ft 11 in Weight 241 lb BMI 33.6 BP 116/62 Blood Pressure Location Rt brachial Position Sitting Pulse 81 Pulse Source Pulse Oximeter Pulse Oximetry (%) 91 L Oxygen Delivery Method Room Air Intake Visit Reasons: 3 MO FU/Conf Conservation Or Heritage Architect Required: No Accompanied by: Spouse Allergies adhesive Allergy (Severe, Verified 10/05/24 14:13) Rash morphine [MORPHINE] Allergy (Severe, Verified 10/05/24 14:13) NAUSEA codeine [CODEINE] Allergy (Intermediate, Verified 10/05/24 14:13) RASH ibuprofen [From MOTRIN] Allergy (Unknown, Verified 10/05/24 14:13) told to avoid due to kidneys Medication List - Last Reconciled 10/05/24 by Eddie Marsh MD allopurinol 2 tabs PO DAILY aspirin 81 mg PO DAILY carisoprodol 2 tabs PO TID carvedilol 6.25 mg PO BID clopidogrel 75 mg PO DAILY dapagliflozin propanediol (Farxiga) 10 mg PO DAILY 90 days fzephzhrgzb-uiutptgzc-mqnjhnpb 200-62.5-25 mcg (Trelegy Ellipta) 1 inh inhalation DAILY furosemide 20 mg PO DAILY glipizide ER 1 tab PO BID ipratropium-albuterol 0.5 mg-3 mg(2.5 mg base)/3 mL 3 mL inhalation Q6H PRN lorazepam 1 mg PO TID losartan 50 mg PO DAILY omega 7-nfj-tiv-fish oil 1,000 (120-180) mg (Fish Oil) 1 cap PO DAILY omeprazole 1 cap PO DAILY@0630 ondansetron 4 mg PO Q8H PRN oxycodone ER (OxyContin) 30 mg PO BID oxycodone ER (OxyContin) 20 mg PO DAILY@1500 simvastatin 40 mg PO BEDTIME HPI Comments Details: 78 yr old man with 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 Sister No problems noted. Social History Household Members: Spouse Household Members Other:: 8 Housing: House Do you presently have visiting nurse or other home services: No (not at present, services will restart later this month.) Alcohol intake: former Year quit: 1979 Patient Tobacco Use Status: Former Tobacco user Tobacco use type: Cigarette Years Smoked: ~20 Quit 36 years ago e-Cigarette/Vaping Use: Never Used Advance Directives Date on File: 03/27/23 service: Yes Current occupational status: retired Physical Exam Vital Signs: Last Vital Signs Pulse 81 10/05/24 14:10 BP 116/62 10/05/24 14:10 Pulse Ox 91 L 10/05/24 14:10 Oxygen Delivery Method Room Air 10/05/24 14:10 BMI result Body Mass Index 33.6 Comfortable Neck supple no JVD. Lungs entry equal no rales. Heart S1-S2 heard no gallop or rub. Abdomen soft nontender. Neuro alert awake oriented. No asterixis. Extremities no edema. Results Reviewed Nephrology Results: Hgb 14.2 g/dl (14.0-18.0) 09/29/24 WBC 6.9 X10*3/uL (4.8-10.8) 09/29/24 Plt Count 196 X10*3/uL (160-400) 09/29/24 Sodium 143 mmol/L (135-145) 09/29/24 Potassium 4.4 mmol/L (3.3-5.1) 09/29/24 Chloride 106 mmol/L (96-108) 09/29/24 Carbon Dioxide 30 mmol/L (22-29) H 09/29/24 BUN 47 mg/dL (9-16) H 09/29/24 Creatinine 1.85 mg/dL (0.5-1.4) H 09/29/24 Calcium 9.0 mg/dL (8.4-10.2) 09/29/24 Assessment & Plan Assessment & Plan (1) Chronic renal failure (CRF), stage 3 (moderate): Code(s): N18.30 - Chronic kidney disease, stage 3 unspecified Category: Medical Plan Due to IGA nephropathy s/p super imposed MARICHUY due to dehydration in a setting of diarrhea Renal fx has improved Watch BP at home Avoid nephrotoxins/NSAIDS Orders: Orders Creatinine Urine 3 Months N18.30 - Chronic kidney disease, stage 3 unspecified Total Protein Urine Random 3 Months N18.30 - Chronic kidney disease, stage 3 unspecified UA and rflx microscopic 3 Months N18.30 - Chronic kidney disease, stage 3 unspecified Comprehensive Met. Panel 3 Months N18.30 - Chronic kidney disease, stage 3 unspecified Complete Blood Count no Diff 3 Months N18.30 - Chronic kidney disease, stage 3 unspecified Coding Level of Care Code Est Pt Level 4 (33132) Diagnoses Chronic renal failure (CRF), stage 3 (moderate) N112.23
--- OUTSIDE RECORDS SUMMARY | 2024-10-05 16:35 | XMS_ITS | Encounter Summary ---
Author Organization [facility] Address [address] [place] [address] Phone Care Team Providers Care Application Support Developer Name Role Phone Mj Bonilla MD Primary Care Provider [phone] Encounter Details Date Type Department Care Team (Late st Contact Info) Description 08/25/2022 Telephone [facility] [address] [place] [address] Caty Krishna Social History Tobacco Use [...] on filedocumented in this encounter Care Teams Application Support Developer Relationship Specialty Start Date End Date Mj Bonilla MD [address] [place] [address] PCP - General 05/06/20 documented as of this encounter
== END 2024-10-05 14:32 | disposition home or self-care (01) ==
LOC: HO.HKA 14:03
PROVIDERS: PCP Internal Medicine; Visit Provider Internal Medicine Hypertension Specialist
DX: N18.30 Chronic kidney disease, stage 3 unspecified (principal)
CPT/HCPCS: 99214

== ENCOUNTER → 2024-10-05 14:03 | Outpatient (BNVA) | payer MEDICARE, MEDICAID, SELFPAY | PROVIDERS: PCP Internal Medicine; Visit Provider Internal Medicine Hypertension Specialist | DX: N18.30 Chronic kidney disease, stage 3 unspecified (principal) | CPT/HCPCS: 99212 ==

== ENCOUNTER 2024-10-24 03:50 | Inpatient (IN) | payer MEDICARE, MEDICAID, SELFPAY ==
--- OUTSIDE RECORDS SUMMARY | 2004-11-21 07:15 | XMS_ITS | Continuity of Care Document ---
Author Name [facility] Organization [facility] Care Team Providers Care Rig Mechanic Name Role Phone [facility] Unavailable Unavailable Social History Combined list of available smoking, tobacco, and other social history from [facility] and [facility] facilities. Social History Type Response Date Comment Sourc e Tobacco smoking status NHIS HISTORY OF SMOKING 11/21/2004 [facility] History of tobacco use HISTORY OF SMOKING 11/21/2004 [facility]
[2024-10-24] VITALS (10 sets, daily range): BP systolic 93–160; BP diastolic 53–76; PULSE 86–113; RESP 10–20; TEMP 36.4–37.9; O2SAT 87–96; BMI 34.4; BMI 34.2
--- NOTE | ~2024-10-24 | XR_ITS ---
CLINICAL HISTORY: Stroke 1 view chest Comparison: CR/SR - XR CHEST 1V - 03/26/24 15:13 EST Findings: Cardiac and mediastinal contours are normal. Mild interstitial prominence with scattered peribronchial thickening. Patchy right lower lobe airspace density. No effusion. No pneumothorax. No acute osseous finding. Impression: Diffuse interstitial prominence with possible right lower lobe infiltrate. This document has been electronically signed by: Deion Guillaume MD on 10/24/2024 05:44:40
--- NOTE | ~2024-10-24 | MR_ITS ---
CLINICAL HISTORY: CVA, limited speech best obtainable, motion on images MR Brain without gadolinium Comparison: CT/SR - CT ANGIO HEAD NECK STROKE - 10/24/24 04:[address]/SR - CT HEAD FOR STROKE - 10/24/24 03:58 EDT Findings: Patchy and punctate multifocal left-sided restricted diffusion. No territorial infarct. No intra-axial mass or hemorrhage. No midline shift. No hydrocephalus. Vascular flow voids are intact. Old left temporal-occipital infarct with encephalomalacia. Moderate diffuse volume loss. Patchy T2 signal prolongation in the periventricular regions. The orbits are normal. The sinuses and mastoid air cells are clear. No focal bone lesion. IMPRESSION: Tiny acute multifocal embolic type infarcts involving the left frontal, temporal and parietal white matter. Moderate to severe chronic changes. This document has been electronically signed by: Deion Guillaume MD on 10/24/2024 19:37:43
--- NOTE | ~2024-10-24 | CT_ITS ---
CLINICAL HISTORY: Stroke Protocol CT head without contrast Comparison: CT/SR - CT HEAD/BRAIN WO IV CON - 03/26/24 15:04 EST Findings: No intracranial mass, midline shift, hydrocephalus, or acute hemorrhage. There is generalized cerebral volume loss. Moderate focus of left parieto-occipital encephalomalacia present. Mild mucosal thickening identified within the ethmoid air cells with minimal mucosal thickening at the left sphenoid sinus. The bilateral mastoid air cells appear clear. No acute skull fracture. Impression: 1. No acute intracranial abnormality. No acute intracranial hemorrhage. This document has been electronically signed by: Harshal Shukla MD on 10/24/2024 04:26:48
--- NOTE | ~2024-10-24 | CT_ITS ---
CLINICAL HISTORY: Stroke Protocol - MINIMAL SPEECH CT angiography head and neck with contrast. 3-D postprocessing Comparison: CT/SR - CT HEAD FOR STROKE - 10/24/24 03:[address]/REG/SR - CT ANGIO HEAD NECK STROKE - 11/08/22 00:50 EDT Findings: This examination is degraded by motion artifact. The right common carotid artery and cervical portion of the right internal carotid artery appear patent without hemodynamically significant stenosis. There may be mild luminal stenosis of the distal aspect of the left common carotid artery. Evaluation is limited by motion artifact. There is occlusion of the cervical left ICA proximally. The remainder of the cervical left ICA appears occluded throughout its course. The vertebral arteries appear patent bilaterally at the level of the neck. No carotid or vertebral dissection is seen. There is no evidence of vasculitis. Mild airspace opacities are partially visualized at the right upper lobe. The visualized portion of the left lung apex appears clear. Emphysema present. The intracranial vertebrobasilar system appears patent. Small fenestration present at the basilar artery. Cerebellar and posterior cerebral arteries are intact. The intracranial right ICA appears patent. There are calcifications throughout the intracranial portion of the right ICA. The majority of the intracranial left ICA appears occluded with reconstitution of vessel patency near the ophthalmic segment of the left ICA. Middle/anterior cerebral arteries also appear patent. No aneurysms visualized. Impression: 1. Motion limited examination. There is of the cervical left ICA proximally. The remainder of the cervical left ICA appears occluded at the level of the neck similar findings were present on the 11/08/2022 examination. 2. Possible mild luminal narrowing at the distal left common carotid artery. Evaluation is limited by motion artifact. The left common carotid artery appears patent. 3. Patent carotid arterial system at the level of the right neck without hemodynamically significant stenosis. The bilateral vertebral arteries also appear patent at the level of the neck. 4. Persistent occlusion of the majority of the intracranial left ICA with reconstitution of vessel patency near the ophthalmic segment of the left ICA. The remainder of the anterior and posterior intracranial arterial circulation appears patent. Similar findings were present on the prior exam. 5. Emphysema with partial visualization of mild right upper lobe airspace opacities. This document has been electronically signed by: Harshal Shukla MD on 10/24/2024 05:05:59
--- NOTE | 2024-10-24 03:55 | ECG_ITS ---
Test Reason : STROKE Blood Pressure : */* mmHG Vent. Rate : 112 BPM Atrial Rate : 112 BPM P-R Int : 148 ms QRS Dur : 114 ms QT Int : 350 ms P-R-T Axes : 19 -3 108 degrees QTcB Int : 477 ms Sinus tachycardia Septal infarct (cited on or before 12-Mar-2024) Incomplete left bundle branch block Abnormal ECG When compared with ECG of 26-Mar-2024 14:47, QRS duration has increased Nonspecific T wave abnormality now evident in Lateral leads Referred By: Candis Johnson Electronically Signed By: SHANNEN WATERS MD
--- NOTE | 2024-10-24 03:59 | ED.NEUROSD ---
HPI - Neuro Symptoms/Deficit General Chief Complaint: Stroke Stated Complaint: STROKE ALERT Time Seen by Provider: 10/24/24 03:55 Source: family, EMS and old records reviewed Mode of arrival: EMS Limitations: no limitations History of Present Illness ED Provider: DR. 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 Related Data Home Medications ?Medication ?Instructions ?Recorded ?Confirmed allopurinol 100 mg tablet 2 tab PO DAILY 11/09/20 10/05/24 carisoprodol 350 mg tablet 2 tab PO TID 11/09/20 10/05/24 glipizide 2.5 mg tablet, extended 1 tab PO BID 11/09/20 10/05/24 release 24 hr omeprazole 20 mg capsule,delayed 1 cap PO DAILY@0630 11/09/20 10/05/24 release furosemide 20 mg tablet 20 mg PO DAILY 08/19/22 10/05/24 omega 3-ntu-flq-fish oil 1,000 mg 1 cap PO DAILY 12/09/22 10/05/24 (120 mg-180 mg) capsule (Fish Oil) oxycodone 20 mg tablet,crush 20 mg PO DAILY@1500 12/09/22 10/05/24 resistant,extended release 12 hr (OxyContin) clopidogrel 75 mg tablet 75 mg PO DAILY 03/26/23 10/05/24 simvastatin 40 mg tablet 40 mg PO BEDTIME 03/26/23 10/05/24 losartan 50 mg tablet 50 mg PO DAILY 11/15/23 10/05/24 ondansetron 4 mg disintegrating 4 mg PO Q8H PRN Nausea And Vomiting 11/15/23 10/05/24 tablet Previous Rx's ?Medication ?Instructions ?Recorded aspirin 81 mg tablet,delayed 81 mg PO DAILY #30 tabs 11/11/22 release lorazepam 1 mg tablet 1 mg PO TID #4 tabs 11/11/22 oxycodone 30 mg tablet,crush 30 mg PO BID #4 tabs 11/11/22 resistant,extended release 12 hr (OxyContin) fluticasone fur. 200 mcg-umeclid 1 inh inhalation DAILY #60 ea 05/08/24 62.5 mcg-vilant 25 mcg inhalat.powder (Trelegy Ellipta) ipratropium 0.5 mg-albuterol 3 mg 3 ml inhalation Q6H PRN wheezing 05/10/24 (2.5 mg base)/3 mL nebulization #180 mL soln carvedilol 6.25 mg tablet 6.25 mg PO BID #180 tabs 06/13/24 dapagliflozin propanediol 10 mg 10 mg PO DAILY 90 days #90 tabs 10/09/24 tablet (Farxiga) Allergies Allergy/AdvReac Type Severity Reaction Status Date / Time adhesive Allergy Severe Rash Verified 10/24/24 04:25 morphine (MORPHINE) Allergy Severe NAUSEA Verified 10/24/24 04:25 codeine (CODEINE) Allergy Intermediate RASH Verified 10/24/24 04:25 ibuprofen (From MOTRIN) Allergy Unknown told to Verified 10/24/24 04:25 avoid due to kidneys Review of Systems Review of Systems: All other systems are reviewed and are negative Constitutional: Reports as per HPI and Reports no additional constitutional complaints Eyes: Reports as per HPI and Reports no additional eye complaints Reports system reviewed and no additional complaints, except as documented Cardiovascular: Reports as per HPI and Reports no additional cardiovascular complaints Respiratory: Reports as per HPI and Reports no additional respiratory complaints Gastrointestinal: Reports as per HPI and Reports no additional gastrointestinal complaints Genitourinary: Reports no additional female genitourinary complaints Musculoskeletal: Reports no additional musculoskeletal complaints Skin/Breast: Reports system reviewed and no additional complaints, except as docu Psychiatric: Reports no additional psychiatric complaints Endocrine: Reports no additional endocrine complaints Hematologic/Lymphatic: Reports no additional hematologic/lymphatic complaints Allergic/Immunologic: Reports no additional allergic/immunologic complaints Reports system reviewed and no additional complaints, except as documented and Reports Abnormal speech present [facility] Past Medical History Medical History Carotid stenosis, right TIA (transient ischemic attack) Chronic renal failure (CRF), stage 3 (moderate) LBBB (left bundle branch block) Cardiomyopathy CHF (congestive heart failure) Chronic back pain Sleep apnea Oxygen dependent Lung nodule CVA (cerebral vascular accident) Surgical History History of lithotripsy History of vasectomy History of back surgery Family History Family History Father Cirrhosis Mother Myocardial infarction Enlarged heart Sister No problems noted. Sister No problems noted. Social History Social History Household Members: Spouse Household Members Other:: 8 Housing: House Do you presently have visiting nurse or other home services: No (not at present, services will restart later this month.) Alcohol intake: former Year quit: 1979 Patient Tobacco Use Status: Former Tobacco user Tobacco use type: Cigarette Years Smoked: ~20 Quit 36 years ago Smoked in Last 30 Days: No e-Cigarette/Vaping Use: Never Used Use of substances other than those prescribed or required for medical reasons: Yes Substance Use Type: Marijuana Advance Directives: Yes Advance Directives on File: Yes Advance Directives Date on File: 03/27/23 service: Yes Current occupational status: retired Physical Exam Vital Signs: Vital Signs: Last Vital Signs Temp 99.7 F 10/24/24 05:18 Pulse 103 H 10/24/24 05:18 Resp 10 L 10/24/24 05:18 BP 113/56 L 10/24/24 05:18 Pulse Ox 90 L 10/24/24 05:18 O2 Del Method Nasal Cannula 10/24/24 05:18 O2 Flow Rate 4 10/24/24 05:18 Oxygen Flow Rate 2 10/24/24 04:22 BMI result Body Mass Index 34.4 Vital signs have been reviewed and appear to be correct. Blood pressure elevated. Heart rate normal. Respiratory rate normal. Temperature normal. Oxygen saturation normal. Appearance: Aphasic, No acute distress. Head: Normal external exam. Normocephalic. Atraumatic. No Haskins signs noted. No raccoon eyes noted Eyes: PERRLA. EOMI. Conjunctiva and sclera normal. Eyelids normal. ENT: TM's Normal. Pharynx normal. Uvula midline. Moist mucous membranes. No trismus noted. No drooling noted. No muffled voice noted. Neck: Normal inspection. Neck supple. FROM. No adenopathy. Thyroid Normal. No meningeal signs. No neck mass noted. CVS: Normal heart rate and rhythm. Heart sound normal. No murmurs noted. Pulses normal throughout. Respiratory: No respiratory distress. Painless inspiration. Breath sounds normal. No wheezes/rales/rhonchi noted. Chest nontender. No accessory muscle usage noted or decreased air movement noted. Abdomen: Soft and nontender. Bowel sounds normal in all 4 quadrants. No distention noted. No organomegaly noted. No visible injury noted. Back: No CVA tenderness. Full range of motion noted. Skin: Skin warm and dry. Normal skin color. Normal skin turgor. No rashes/lesions/lacerations noted. Extremities: No lower extremity edema. Extremities exhibit normal range of motion. Extremities nontender. Neuro: Aphasic, right hemiparesis, right facial droop Course Reevaluation(s) Reevaluation #1: 79-year-old male with chronic left ICA presented with right hemiparesis and complete aphasia NIH score of 16 last known well was 21:00 last night before he went to bed and presented to us at 03:00 therefore he is not a candidate for TNK. CTA is showing chronic left ICA occlusion, case discussed with Dr. Nunn who advised to discuss the case with neuro securities consultant at [facility]. therefor the case was discussed and reviewed by Dr. Brar neuro securities consultant at [facility] who reviewed the CTA, and instructed that a mechanical thrombectomy is not indicated in this case, recommended to keep the patient in our hospital for conservative treatment. The case discussed with Dr. Garza who accepted the patient to the hospitalist service. Right lower lobe pneumonia, no sepsis or septic shock. Time: 06:04 Medications Administered Discontinued Medications Generic Name Dose Route Start Last Admin Trade Name Freq PRN Reason Stop Dose Admin Ceftriaxone Sodium 1 gm 10/24/24 04:45 10/24/24 05:12 Ceftriaxone Sodium 1 Gm Vial IVPUSH 10/24/24 04:46 1 gm ONCE ONE Administration Medical Decision Making Differential Diagnosis Differential Diagnoses: The differential diagnosis associated with the presentation includes (Hemorrhagic CVA, ischemic CVA, electrolyte derangement, severe anemia, pneumonia, pneumothorax, pleural effusion.) Admission/Observation Consideration of admission/observation: Escalation of care including admission/observation considered Consult Healthcare Provider Management of the patient was discussed with: Hospitalist (Dr. Garza) and Forestry Consultant (Dr. Nunn/Dr. Brar (from [facility]).) Lab Data MDM Lab Attestation statement: I reviewed the patient's lab results. 10/24/24 03:59 10/24/24 03:59 Labs: Lab Results 10/24/24 10/24/24 10/24/24 Range/Units 03:56 03:57 03:59 WBC 9.2 (4.8-10.8) X10*3/uL RBC 4.23 L (4.60-5.80) X10*6/uL Hgb 13.3 L (14.0-18.0) g/dl Hct 41.1 L (42.0-52.0) % MCV 97.2 (80.0-98.0) fL MCH 31.4 (27.0-33.0) pg MCHC 32.4 (31.0-36.0) g/dl RDW 14.8 (11.0-16.0) % Plt Count 151 L (160-400) X10*3/uL MPV 10.8 (9.4-12.4) fL Immature Gran % (Auto) 0.4 (0.0-0.4) % Neut % (Auto) 75.1 H (45-73) % Lymph % (Auto) 9.2 L (20-40) % [place] % (Auto) 11.7 H (2-11) % Eos % (Auto) 3.4 (0-4) % Baso % (Auto) 0.2 (0-2) % Lymph # (Auto) 0.8 L (1.2-4.9) X10*3/uL [place] # (Auto) 1.1 (0.1-1.2) X10*3/uL Eos # (Auto) 0.3 (0.0-0.4) X10*3/uL Baso # (Auto) 0.0 (0.0-0.2) X10*3/uL Abs Immat Gran (auto) 0.04 H (0.00-0.03) X10*3/uL Absolute Neuts (auto) 6.9 (2.0-8.3) x10*3/uL Absolute Nucleated RBC 0.000 (0.0-0.012) X10*3/uL Nucleated RBC % (auto) 0.0 (0.0-0.2) /100WBC PT 12.1 (10.9-12.4) SEC Whole Blood PT 13.3 (11.1-13.5) sec INR 1.1 (0.9-1.1) Whole Blood INR 1.1 (0.9-1.1) APTT 27.9 (26.0-36.8) SEC VBG pH (7.32-7.43) VBG pCO2 mmHg VBG pO2 mmHg VBG HCO3 (22-26) mmol/L VBG O2 Saturation % VBG Base Excess mmol/L Sodium 142 (135-145) mmol/L Potassium 4.5 (3.3-5.1) mmol/L Chloride 111 H (96-108) mmol/L Carbon Dioxide 19 L (22-29) mmol/L Anion Gap 17 (12-20) BUN 33 H (9-16) mg/dL Creatinine 1.50 H (0.5-1.4) mg/dL Estim Creat Clear Calc 50.9 Estimated GFR 45 POC Glucose 143 H (60-115) mg/dL Random Glucose 152 H (60-115) mg/dL Lactic Acid (0.5-2.0) mmol/L Calcium 8.2 L D (8.4-10.2) mg/dL Troponin I High Sens 30.2 D (<3.5-35.0) ng/L Triglycerides 115 (<150) mg/dL Cholesterol 129 (<200) mg/dL LDL Cholesterol, Calc 72 (<100) mg/dL HDL Cholesterol 34 L (>40) mg/dL Urine Color Urine Appearance Urine pH (5.0-9.0) Ur Specific [place] (1.005-1.025) Urine Protein (Neg-Trace) mg/dL Urine Glucose (UA) (Negative) mg/dL Urine Ketones (Negative) mg/dL Urine Blood (Negative) Urine Nitrite (Negative) Ur Leukocyte Esterase (Negative) Urine RBC (0-2) /HPF Urine WBC (0-5) /HPF Ur Squamous Epith Cells (0-2) /HPF Urine Bacteria (None Seen) Hyaline Casts (0-2) /LPF 10/24/24 10/24/24 10/24/24 Range/Units 04:50 05:06 05:20 WBC (4.8-10.8) X10*3/uL RBC (4.60-5.80) X10*6/uL Hgb (14.0-18.0) g/dl Hct (42.0-52.0) % MCV (80.0-98.0) fL MCH (27.0-33.0) pg MCHC (31.0-36.0) g/dl RDW (11.0-16.0) % Plt Count (160-400) X10*3/uL MPV (9.4-12.4) fL Immature Gran % (Auto) (0.0-0.4) % Neut % (Auto) (45-73) % Lymph % (Auto) (20-40) % [place] % (Auto) (2-11) % Eos % (Auto) (0-4) % Baso % (Auto) (0-2) % Lymph # (Auto) (1.2-4.9) X10*3/uL [place] # (Auto) (0.1-1.2) X10*3/uL Eos # (Auto) (0.0-0.4) X10*3/uL Baso # (Auto) (0.0-0.2) X10*3/uL Abs Immat Gran (auto) (0.00-0.03) X10*3/uL Absolute Neuts (auto) (2.0-8.3) x10*3/uL Absolute Nucleated RBC (0.0-0.012) X10*3/uL Nucleated RBC % (auto) (0.0-0.2) /100WBC PT (10.9-12.4) SEC Whole Blood PT (11.1-13.5) sec INR (0.9-1.1) Whole Blood INR (0.9-1.1) APTT (26.0-36.8) SEC VBG pH 7.38 (7.32-7.43) VBG pCO2 31 mmHg VBG pO2 196 mmHg VBG HCO3 18 L (22-26) mmol/L VBG O2 Saturation 99.0 % VBG Base Excess -5.0 mmol/L Sodium (135-145) mmol/L Potassium (3.3-5.1) mmol/L Chloride (96-108) mmol/L Carbon Dioxide (22-29) mmol/L Anion Gap (12-20) BUN (9-16) mg/dL Creatinine (0.5-1.4) mg/dL Estim Creat Clear Calc Estimated GFR POC Glucose (60-115) mg/dL Random Glucose (60-115) mg/dL Lactic Acid 0.6 (0.5-2.0) mmol/L Calcium (8.4-10.2) mg/dL Troponin I High Sens (<3.5-35.0) ng/L Triglycerides (<150) mg/dL Cholesterol (<200) mg/dL LDL Cholesterol, Calc (<100) mg/dL HDL Cholesterol (>40) mg/dL Urine Color Yellow Urine Appearance Clear Urine pH 5.5 (5.0-9.0) Ur Specific [place] 1.020 (1.005-1.025) Urine Protein 30 (1+) H (Neg-Trace) mg/dL Urine Glucose (UA) >=1000 H (Negative) mg/dL Urine Ketones Trace (Negative) mg/dL Urine Blood Moderate (2+) H (Negative) Urine Nitrite Negative (Negative) Ur Leukocyte Esterase Moderate (2+) H (Negative) Urine RBC 3-5 H (0-2) /HPF Urine WBC >50 H (0-5) /HPF Ur Squamous Epith Cells 0-2 (0-2) /HPF Urine Bacteria None Seen (None Seen) Hyaline Casts 3-5 (0-2) /LPF Independent Interpretation I performed an independent interpretation of an: Plain X-Ray (Chest:Diffuse interstitial prominence with possible right lower lobe infiltrate.) Radiology Impression Discussion of test interpretation with radiology: I have reviewed the radiologist's reading. NIH Stroke Scale Time: 04:04 Level of Consciousness: Alert Level of Consciousness Questions: Answers neither question correctly Level of Consciousness Commands: Performs neither task correctly Best Gaze: Normal Visual: No visual loss Facial Palsy: Partial paralysis Motor Arm (Right): No effort against gravity Motor Arm (Left): No drift Motor Leg (Right): No effort against gravity Motor Leg (Left): No drift Limb Ataxia: Absent Sensory: Mild to moderate sensory loss Best Language: Mute, global aphasia Dysarthia: Normal Extinction and Inattention: No abnormality Score: 16 Critical Care Time Critical Care Time Critical Care Time: Yes Total Critical Care Time: 60 Attestation: The patient was critically ill with a high probability of imminent or life-threatening deterioration. I spent greater than 30 minutes of discontinuous time evaluating the patient, delivering critical care at the bedside, discussing evaluating data with consultants. Critical care time does not include time spent performing separately billable procedures or teaching. Time spent performing critical care was 60 minutes. Discharge Plan Discharge Clinical Impression: Acute CVA (cerebrovascular accident), Acute right hemiparesis, Pneumonia Patient Disposition: Admitted As Inpatient
[2024-10-24 04:04] LABS: MANUAL DIFF FLAG NO
[2024-10-24 04:05] LABS: Glucose, Whole Blood 143 mg/dL (60-115)
[2024-10-24 04:06] LABS: Prothrombin Time Whole Bld POC 13.3 sec (11.1-13.5); ~PT, ~INR - Anti Coag Clinic 1.1 (0.9-1.1)
[2024-10-24 04:06] LABS: Hematocrit 41.1 % (42.0-52.0); Hemoglobin 13.3 g/dl (14.0-18.0); Imm Gran Abs Auto 0.04 X10*3/uL (0.00-0.03); Imm Gran Pct Auto 0.4 % (0.0-0.4); Lymphocytes Absolute Auto 0.8 X10*3/uL (1.2-4.9); Mean Corpuscular HGB Conc 32.4 g/dl (31.0-36.0); Mean Corpuscular Hemoglobin 31.4 pg (27.0-33.0); Mean Corpuscular Volume 97.2 fL (80.0-98.0); NRBC Abs Auto 0.000 X10*3/uL (0.0-0.012); NRBC Pct Auto 0.0 /100WBC (0.0-0.2); Platelet Count 151 X10*3/uL (160-400); Red Blood Count 4.23 X10*6/uL (4.60-5.80); White Blood Count 9.2 X10*3/uL (4.8-10.8)
[2024-10-24 04:12] LABS: INTERNATIONAL NORM RATIO 1.1 (0.9-1.1); Prothrombin Time 12.1 SEC (10.9-12.4)
[2024-10-24 04:15] LABS: Partial Thromboplastin Time 27.9 SEC (26.0-36.8)
[2024-10-24 04:16] LABS: Stroke Lab Use COMPLETE
--- OUTSIDE RECORDS SUMMARY | 2024-10-24 04:21 | XMS_ITS | Clinical Summary ---
Author Organization [employer] Address [address] [place] [address] Care Team Providers Care Director Of Income Tax Name Role Phone Unavailable Primary Care Provider Unavailabl e Encounters Date Type Department Care Team Description 08/11/2024 Telephone [facility] [address] [place] [address] Catrachito Price MD from Last 3 Months Social History Tobacco Use Types Packs/Day Years Used Date Smoking Tobacco: Never Assessed Sex and Gender Information Value Date Recorded Sex Assigned at Not on file Legal Sex Male 1:45 PM EDT Gender Identity Not on file Sexual Orientation Not on file Plan of Treatment Upcoming Encounters Date Type Department Care Team (Late st Contact Info) Description 11/20/2024 9:45 AM EDT Telemedicine [facility] PEDS [address] [place] [address] Jhonathan Valles MD [address] [place] [address] Health Maintenance Due Date Last Done Comments Depression Screening 1947 Lipid Panel 1947 SDOH Screening 1947 Alcohol/Substance Use Screening 1959 Tobacco Screening 1959 Hepatitis C Screening 1965 DTaP/Tdap/Td Vaccines (1 - Tdap) 1966 Pneumococcal Vaccine: 50+ Years (1 of 1 - PCV) 1997 Zoster Vaccines (1 of 2) 1997 RSV Patients and Patients Aged 60 years or older (1 - 1-dose 75+ series) 2022 COVID-19 Vaccine ( - season) 2023 07/28/2021, 02/27/2021, 08/12/2020, Additional history exists Influenza Vaccine Completed 01/20/2024, , 02/06/2022, Additional history exists HIB Vaccines Aged Out No longer eligi ble based on patient's age to complete this topic HPV Vaccines Aged Out No longer eligi ble based on patient's age to complete this topic Hepatitis A Vaccines Aged Out No long er eligible based on patient's age to complete this topic Hepatitis B Vaccines Aged Out No long er eligible based on patient's age to complete this topic IPV Vaccines Aged Out No longer eligi ble based on patient's age to complete this topic Meningococcal B Vaccine Aged Out No l onger eligible based on patient's age to complete this topic Meningococcal Vaccine Aged Out No yovany evens eligible based on patient's age to complete this topic RSV under 20 months Aged Out No longe r eligible based on patient's age to complete this topic Rotavirus Vaccines Aged Out No longer eligible based on patient's age to complete this [place] [id number] MEDICARE [facility]
--- OUTSIDE RECORDS SUMMARY | 2024-10-24 04:21 | XMS_ITS | Encounter Summary ---
Author Organization [facility] Address [address] [place] [address] Phone Care Team Providers Care Field C[employer] I Farmworker Name Role Phone Mj Bonilla MD Primary Care Provider [phone] Encounter Details Date Type Department Care Team [...] on filedocumented in this encounter Care Teams Field C[employer] I Farmworker Relationship Specialty Start Date End Date Mj Bonilla MD [address] [place] [address] PCP - General 05/06/20 documented as of this encounter
[2024-10-24 04:26] LABS: Troponin-I High Sensitivity 30.2 ng/L (<3.5-35.0)
[2024-10-24 04:34] LABS: Anion Gap 17 (12-20); Blood Urea Nitrogen 33 mg/dL (9-16); Calcium 8.2 mg/dL (8.4-10.2); Carbon Dioxide 19 mmol/L (22-29); Chloride 111 mmol/L (96-108); Cholesterol 129 mg/dL (<200); Creatinine Clr Calc Pharmacy 50.9; Estimated Glomerular Filt Rate 45; HDL Cholesterol 34 mg/dL (>40); Potassium 4.5 mmol/L (3.3-5.1); Sodium 142 mmol/L (135-145); Triglycerides 115 mg/dL (<150)
[2024-10-24 05:05] LABS: Venous Blood Gas Refer to POC result
[2024-10-24 05:10] LABS: VBG HCO3 18 mmol/L (22-26); VBG O2 % Saturation 99.0 %
[2024-10-24 05:28] LABS: Appearance Urine Clear; Glucose Urine UA >=1000 mg/dL (Negative); PH 5.5 (5.0-9.0); Specific Gravity - Urine 1.020 (1.005-1.025); UMIC TRIGGER UACC YES
[2024-10-24 05:45] LABS: UACC Culture Trigger YES
--- NOTE | 2024-10-24 06:08 | MHC.EDTECH ---
This pct spoke with patient and family members that are present , they state he does not have any belongings with him at the moment but will bring him clothing later on . I have noted this on the belonging list as well.
--- NOTE | 2024-10-24 06:19 | PM.IMHP ---
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 The patient has had a hard time achieving words. His last known well time was 2100 last night. the patient is unable to give a history at this time and has a hard time following commands. In the ED the patient was found to have a urinary tract infection, no sepsis. Head CT negative. CTA head and neck with left ICA occlusion, chronic. His case was discussed with in-house Neurology, Dr. Nunn, as well as [facility] neuro binder coverstitch, Dr. Brar, who both agreed no intervention appropriate at this time, mechanical thrombectomies not indicated, nor tNK. He was also found to be hypoxic with pneumonia. Review of Systems Review of Systems: Yes Unobtainable due to mental condition [facility] Medical History Carotid stenosis, right TIA (transient ischemic attack) Chronic renal failure (CRF), stage 3 (moderate) LBBB (left bundle branch block) Cardiomyopathy CHF (congestive heart failure) Chronic back pain Sleep apnea Oxygen dependent Lung nodule CVA (cerebral vascular accident) Family History Father Cirrhosis Mother Myocardial infarction Enlarged heart Sister No problems noted. Sister No problems noted. Surgical History History of lithotripsy History of vasectomy History of back surgery Social History Household Members: Spouse Household Members Other:: 8 Housing: House Do you presently have visiting nurse or other home services: No (not at present, services will restart later this month.) Alcohol intake: former Year quit: 1979 Patient Tobacco Use Status: Former Tobacco user Tobacco use type: Cigarette Years Smoked: ~20 Quit 36 years ago Smoked in Last 30 Days: No e-Cigarette/Vaping Use: Never Used Use of substances other than those prescribed or required for medical reasons: Yes Substance Use Type: Marijuana Advance Directives: Yes Advance Directives on File: Yes Advance Directives Date on File: 03/27/23 service: Yes Current occupational status: retired Meds Allergies Allergy/AdvReac Type Severity Reaction Status Date / Time adhesive Allergy Severe Rash Verified 10/24/24 04:25 morphine (MORPHINE) Allergy Severe NAUSEA Verified 10/24/24 04:25 codeine (CODEINE) Allergy Intermediate RASH Verified 10/24/24 04:25 ibuprofen (From MOTRIN) Allergy Unknown told to Verified 10/24/24 04:25 avoid due to kidneys Active Medications: Current Medications Doxycycline Hyclate 100 mg/ (Sodium Chloride) 250 mls @ 166.67 mls/hr IV ONCE ONE Stop: 10/24/24 07:46 Home Medications ?Medication ?Instructions ?Recorded ?Confirmed ?Last Taken ?Type allopurinol 100 mg tablet 2 tab PO DAILY 11/09/20 10/05/24 03/12/24 09:00 History carisoprodol 350 mg tablet 2 tab PO TID 11/09/20 10/05/24 12/13/22 History glipizide 2.5 mg tablet, extended 1 tab PO BID 11/09/20 10/05/24 03/12/24 09:00 History release 24 hr omeprazole 20 mg capsule,delayed 1 cap PO DAILY@0630 11/09/20 10/05/24 03/12/24 09:00 History release furosemide 20 mg tablet 20 mg PO DAILY 08/19/22 10/05/24 03/12/24 09:00 History omega 3-qth-vhf-fish oil 1,000 mg 1 cap PO DAILY 12/09/22 10/05/24 03/12/24 09:00 History (120 mg-180 mg) capsule (Fish Oil) oxycodone 20 mg tablet,crush 20 mg PO DAILY@1500 12/09/22 10/05/24 12/14/22 04:00 History resistant,extended release 12 hr (OxyContin) clopidogrel 75 mg tablet 75 mg PO DAILY 03/26/23 10/05/24 03/12/24 09:00 History simvastatin 40 mg tablet 40 mg PO BEDTIME 03/26/23 10/05/24 Unknown History losartan 50 mg tablet 50 mg PO DAILY 11/15/23 10/05/24 03/12/24 09:00 History ondansetron 4 mg disintegrating 4 mg PO Q8H PRN Nausea And Vomiting 11/15/23 10/05/24 Unknown History tablet Physical Exam Vital Signs and Narrative: Vital Signs: Last Vital Signs Temp 99.5 F 10/24/24 06:18 Pulse 100 10/24/24 06:18 Resp 13 10/24/24 06:18 BP 117/59 L 10/24/24 06:18 Pulse Ox 91 L 10/24/24 06:18 O2 Del Method Nasal Cannula 10/24/24 06:18 O2 Flow Rate 4 10/24/24 06:18 Oxygen Flow Rate 2 10/24/24 04:22 BMI result Body Mass Index 34.4 General: AOx3, no acute distress Resp: CTA bilaterally, no wheezing, does not take deep breaths to assess CVS: mild tachycardia, normal rhythm GI: +BS, NT, no distention Skin: Warm, dry Neuro: difficult to assess, pt cannot follow commands. PERRL. does have bilateral upper extremity production lead strength but amount and comparison difficult to assess. Extremities: No LE edema Psych: Appropriate affect Results Labs 10/24/24 03:59 10/24/24 03:59 Labs: Laboratory Results - last 24 hr 10/24/24 10/24/24 10/24/24 03:56 03:57 03:59 MCV 97.2 MCH 31.4 MCHC 32.4 RDW 14.8 Plt Count 151 L MPV 10.8 Immature Gran % (Auto) 0.4 Neut % (Auto) 75.1 H Lymph % (Auto) 9.2 L [place] % (Auto) 11.7 H Eos % (Auto) 3.4 Baso % (Auto) 0.2 Lymph # (Auto) 0.8 L [place] # (Auto) 1.1 Eos # (Auto) 0.3 Baso # (Auto) 0.0 Abs Immat Gran (auto) 0.04 H Absolute Neuts (auto) 6.9 Absolute Nucleated RBC 0.000 Nucleated RBC % (auto) 0.0 PT 12.1 Whole Blood PT 13.3 INR 1.1 Whole Blood INR 1.1 APTT 27.9 VBG pH VBG pCO2 VBG pO2 VBG HCO3 VBG O2 Saturation VBG Base Excess Anion Gap 17 Estim Creat Clear Calc 50.9 Estimated GFR 45 POC Glucose 143 H Random Glucose 152 H Lactic Acid Calcium 8.2 L D Troponin I High Sens 30.2 D Triglycerides 115 Cholesterol 129 LDL Cholesterol, Calc 72 HDL Cholesterol 34 L Urine Color Urine Appearance Urine pH Ur Specific [place] Urine Protein Urine Glucose (UA) Urine Ketones Urine Blood Urine Nitrite Ur Leukocyte Esterase Urine RBC Urine WBC Ur Squamous Epith Cells Urine Bacteria Hyaline Casts 10/24/24 10/24/24 10/24/24 04:50 05:06 05:20 MCV MCH MCHC RDW Plt Count MPV Immature Gran % (Auto) Neut % (Auto) Lymph % (Auto) [place] % (Auto) Eos % (Auto) Baso % (Auto) Lymph # (Auto) [place] # (Auto) Eos # (Auto) Baso # (Auto) Abs Immat Gran (auto) Absolute Neuts (auto) Absolute Nucleated RBC Nucleated RBC % (auto) PT Whole Blood PT INR Whole Blood INR APTT VBG pH 7.38 VBG pCO2 31 VBG pO2 196 VBG HCO3 18 L VBG O2 Saturation 99.0 VBG Base Excess -5.0 Anion Gap Estim Creat Clear Calc Estimated GFR POC Glucose Random Glucose Lactic Acid 0.6 Calcium Troponin I High Sens Triglycerides Cholesterol LDL Cholesterol, Calc HDL Cholesterol Urine Color Yellow Urine Appearance Clear Urine pH 5.5 Ur Specific [place] 1.020 Urine Protein 30 (1+) H Urine Glucose (UA) >=1000 H Urine Ketones Trace Urine Blood Moderate (2+) H Urine Nitrite Negative Ur Leukocyte Esterase Moderate (2+) H Urine RBC 3-5 H Urine WBC >50 H Ur Squamous Epith Cells 0-2 Urine Bacteria None Seen Hyaline Casts 3-5 Assessment and Plan (1) Acute CVA (cerebrovascular accident): Status: Acute (2) Acute right hemiparesis: Status: Acute (3) Acute and chronic respiratory failure with hypoxia: Status: Acute (4) Pneumonia: Status: Acute (5) UTI (urinary tract infection): Status: Acute Plan Patient is a 79-year-old male with a past medical history significant for history TIA, 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 In the ED the patient was found to have a urinary tract infection, no sepsis. Head CT negative. CTA head and neck with left ICA occlusion, chronic. His case was discussed with in-house Neurology, Dr. Nunn, as well as [facility] neuro binder coverstitch, Dr. Brar, who both agreed no intervention appropriate at this time, mechanical thrombectomies not indicated, nor tNK. Worsening right-sided hemiparesis and aphasia, CVA - head CT negative - CTA head/neck with chronic left ICA occlusion - patient's case discussed with Dr. Nunn and Dr. Maxwell at [facility], not a surgical candidate or candidate for TNK - BP soft, given albumin in ED to prevent worsening hypoperfusion - MRI brain - echo with bubble study - monitor on tele - aspirin - lipid panel with low HDL - high-intensity statin - neurology consult - PT/OT/speech evaluation - NPO pending bedside swallow evaluation by nurse - neuro checks q.2h Acute urinary tract infection - WBC 9.2, vital signs stable, no sepsis - UA positive - started on ceftriaxone in ED, continue - labs with hyperchloremic metabolic acidosis - monitor CBC and BMP Acute on chronic respiratory failure with hypoxia secondary to pneumonia - WBC 9.2, vital signs stable, no sepsis - chest x-ray with diffuse interstitial prominence with possible right lower lobe infiltrate - started on ceftriaxone as above, continue and add doxycycline - monitor CBC and BMP T2DM - hold glipizide - sliding scale insulin Q6H while NPO - diabetic diet when appropriate Moderate COPD, no acute exacerbation - continue home meds HTN - hold BP meds due to soft BP Chronic HFpEF, no acute exacerbation - continue home meds when appropriate CKD 3 - creatinine at baseline, no MARICHUY Left bundle branch block - EKG with sinus tachycardia KAREN - CPAP at bedtime Obesity, class 1 - BMI 34.4 - weight loss encouraged med rec pending full code VTE prophy: heparin Pt with worsening R hemiparesis, aphasia, CVA complicated by UTI and acute on chronic respiratory failure pneumonia, requiring admission for at least 2 midnights stay for IV abx, further evaluation and montioring. Quality Stroke Does the patient have a stroke diagnosis?: Yes Reason for No Anti-thrombotic by Day Two: Drug treatment not indicated VTE Prior VTE?: No VTE Risk Level:: Medical - moderate - high VTE Device Contraindication: Treatment Not Indicated VTE Drug Contraindication: N/A - Med Ordered
--- NOTE | 2024-10-24 06:25 | PC.RT ---
Spoke with daughter ezra about pt KAREN. pt cannot tolerate to wear cpap at home because of pt nose. i asked about under the nose or nsal pillows bu she says he cannot wear them. Therefore he does wear oxygen at night as sleeps sitting up . Pt in no acute resp distress and is here in ED to r/o CVA.
--- NOTE | 2024-10-24 07:00 | CA_ITS ---
Transthoracic Echocardiogram Patient (Last, First, Middle): Zane Delgado J Gender: Male Date of : 1945 Age: 79 Procedure Date: 10/24/2024 Procedure Type: Transthoracic Echocardiogram Location: ER Height: 177.8 cm Weight: 108.86 kg BSA: 2.26 m2 Heart Rate: 94 bpm BP: 117 / 59 mmHg Degreasing Solution Mixer: JACQUIE Referring MD: Ashlyn Thibodeaux PA-C Tractor Trailer Driver: Ever Mcgill MD Symptoms: CVA Study Quality: Technically Difficult ECG Rhythm: Sinus Conclusions: - 1. Technically difficult study 2. Hyperdynamic LV ejection fraction greater than 70% 3. Limited visualization of cardiac valve with cardiac valvular Dopplers within normal limits Findings Procedure Information Contrast agent, definity, is being given per protocol without apparent complications. The quality of the study was technically difficult. Left Ventricle The left ventricle was not well visualized. The left ventricular systolic function is hyperdynamic. The visually estimated ejection fraction is >70%. Spectral Doppler is indicative of an impaired relaxation filling pattern. Right Ventricle The right ventricle was not well visualized. Atria The left atrium was not well visualized. Interatrial shunt cannot be excluded. The right atrium was not well visualized. Aortic Valve The aortic valve was not well visualized. There is no aortic valve stenosis. There is no aortic valve regurgitation. Mitral Valve The mitral valve was not well visualized. There is severe mitral annular calcification. There is trace mitral valve regurgitation. There is no mitral valve stenosis. Pulmonic Valve The pulmonic valve was not well visualized. Tricuspid Valve The tricuspid valve was not well visualized. Tricuspid regurgitation envelope is inadequate for calculation of right ventricular systolic pressure. Great Vessels The aorta was not well visualized. The pulmonary artery was not well visualized. Venous The inferior vena cava was not well visualized. Pericardium/Pleural The pericardium was not well visualized. Prior Study Comparison this study was technically difficult to interpret due to off axis views and correlation is difficult although LV ejection fraction appears to be hyperdynamic on this study Measurements 2D Linear Measurements LA Diam: 4.50 2.7-3.8/3.0-4.0 cm LAIDs Index: 1.99 1.5-2.3 cm/m2 LVOT Diam: 2.50 3.0+(-)1.3 cm 2D Systolic Function EF 4C: 76.70 >55% EF 2C: 79.00 >55% EF BiP: 77.50 >55% Mitral Valve MV VTI: 0.26 MV Pk Neel: 1.26 MV Mn Neel: 0.82 MV Pk Grad: 6.00 MV Mn Grad: 3.00 MV Pk E: 1.08 MV PK A: 1.39 MV Decel Time: 223.00 E/A: 0.80 E'Lateral: 7.72 E/E' Lat: 14.00 PHT: 65.00 MVA PHT: 3.38 MVA Continuity: 3.50 Decel Dickson: 4.82 Aortic Valve AoV Pk Neel: 1.32 AoV Mn Neel: 0.96 AoV VTI: 0.28 AoV Pk Grad: 7.00 Aov Mn Grad: 4.00 DARI Cont.VTI: 3.21 LVOT LVOT Pk Neel: 0.91 LVOT Mn Neel: 0.64 LVOT VTI: 0.18 LVOT Pk Grad: 3.00 LVOT Mn Grad: 2.00 LVOT Diam: 2.50 LVOT Area: 4.91 Diastolic Function MV Pk E: 1.08 MV Pk A: 1.39 E/A: 0.80 E' Laterial: 7.72 E/E' Lat: 14.00 Right Ventricle TAPSE (mm): 28.10 TVS' Neel: 15.90 Tricuspid Valve RA Press: 15.00 Great Vessels Aorta Sinus of Valsalva: 3.60 2.0-3.5 cm Pulmonary Valve PV Pk Neel: 0.94 Peak PV Grad: 4.00 Updated in Other Vendor System with Status of Final Ever Mcgill MD electronically signed on 10/24/2024 12:02:25 PM with status of Final
[2024-10-24 07:32] LABS: Glucose, Whole Blood 132 mg/dL (60-115)
[2024-10-24] MEDS: Albumin Human 25 % 100 ML 133.33 ML IV ×2 (07:37→08:48)
[2024-10-24] MEDS: 0.9 % Sodium Chloride Flush 3 ML SYRINGE IVFLUSH ×2 (07:40→15:52)
--- NOTE | 2024-10-24 07:49 | PC.NURSE ---
PT alert, able to answer yes to questions but otherwise unable to speak. Family at bedside. PT able to follow commands, spitting into emesis bag and coughing. He is having difficulty swallowing his secretions. Hes on O2 4L via NC maintaining spO2 in low 90s. Alvarez intact draining clear yellow urine. IVs patent.
--- NOTE | 2024-10-24 08:07 | PHA.MEDREC ---
Addendum entered by Lucille Venegas RPh 10/24/24 08:57: MED REC REVIEWED BY [facility] Original Note: Pharmacy Consult ? Medication Reconciliation Pharmacy has completed the medication reconciliation. Spoke with pt daughter over the phone and she was able to confirm the pt medications. Daughter confirmed the pt no longer takes the Lorazepam 1mg as of about 1 month ago per the pt Dr and family doesn't really know why it was stopped. Pt hasn't had any medications since Wednesday, per daughter and .
--- NOTE | 2024-10-24 09:39 | MHC.EDTECH ---
Patient moved to the hospital bed , resting comfortably on the bed with call burleson in his reach.
--- NOTE | 2024-10-24 12:34 | P.CNNE_ITS ---
History of Present Illness Data of Consult Service Date: 10/24/24 Primary Care Provider: Unknown Physician HPI Reason for consult: Stroke This is a 79-year-old male with a h/o TIA, history CVA in 2022 with residual mild right-sided hemiparesis requiring tPA, HFpEF, chronic left ICA occlusion, obesity, CKD 3, left bundle branch block, KAREN, who presented to the ED due to worsening right-sided hemiparesis noticed around 03:00 with urinary incontinence and speech difficulties. The patient has had a hard time formulating words. His last known well time was 2100 last night. the patient is unable to give a history at this time and has a hard time following commands. In the ED the patient was found to have a urinary tract infection, no sepsis. Head CT negative. CTA head and neck with left ICA occlusion, chronic. His case was discussed with in-house Neurology, Dr. Nunn, as well as [facility] neuro press assistant and feeder, Dr. Brar, who both agreed no intervention appropriate at this time, mechanical thrombectomies not indicated, nor tNK. He was also found to be hypoxic with pneumonia. [facility] Past Medical History Medical History Carotid stenosis, right TIA (transient ischemic attack) Chronic renal failure (CRF), stage 3 (moderate) LBBB (left bundle branch block) Cardiomyopathy CHF (congestive heart failure) Chronic back pain Sleep apnea Oxygen dependent Lung nodule CVA (cerebral vascular accident) Family History Family History Father Cirrhosis Mother Myocardial infarction Enlarged heart Sister No problems noted. Sister No problems noted. Surgical History Surgical History History of lithotripsy History of vasectomy History of back surgery Social History Social History Household Members: Unknown / Unable to assess Household Members Other:: pt said I dont Know Housing: Unknown / Unable to assess Housing Other:: pt said I dont Know Do you presently have visiting nurse or other home services: No Alcohol intake: former Year quit: 1979 Patient Tobacco Use Status: Never used Tobacco Tobacco use type: Cigarette Years Smoked: ~20 Quit 36 years ago e-Cigarette/Vaping Use: Never Used Substance Use Type: Marijuana Advance Directives Date on File: 03/27/23 service: Yes Current occupational status: retired Meds Allergies Allergy/AdvReac Type Severity Reaction Status Date / Time adhesive Allergy Severe Rash Verified 10/24/24 04:25 morphine (MORPHINE) Allergy Severe NAUSEA Verified 10/24/24 04:25 codeine (CODEINE) Allergy Intermediate RASH Verified 10/24/24 04:25 ibuprofen (From MOTRIN) Allergy Unknown told to Verified 10/24/24 04:25 avoid due to kidneys Active Medications: Current Medications Acetaminophen (Acetaminophen 325 Mg Tablet) 975 mg PO Q6H PRN PRN Reason: Pain, Mild 1-3,fever,headache Aspirin (Aspirin Enteric Coated 81 Mg Tablet.Dr) 81 mg PO DAILY [facility] Last Admin: 10/24/24 09:35 Dose: Not Given Atorvastatin Calcium (Atorvastatin Calcium 80 Mg Tablet) 80 mg PO DAILY [facility] Last Admin: 10/24/24 09:35 Dose: Not Given Calcium Carbonate (Calcium Carbonate 750 Mg Tab.Chew) 750 mg PO Q4H PRN PRN Reason: Heartburn Ceftriaxone Sodium (Ceftriaxone Sodium 1 Gm Vial) 1 gm IVPUSH Q24H [facility] Dextrose (Dextrose 50 % 25 Gm/50 Ml Syringe) 25 gm IVPUSH Q15M PRN; Protocol PRN Reason: per Hypoglycemia Standing Ord. Glucose (Glucose Gel 15 Gm Gel..Gram.) 15 gm PO Q15M PRN; Protocol PRN Reason: per Hypoglycemia Standing Ord. Heparin Sodium (Porcine) (Heparin Sodium,Porcine 5,000 Unit/Ml Vial) 5,000 unit SUBCUT Q12H [facility] Last Admin: 10/24/24 07:38 Dose: 5,000 unit Doxycycline Hyclate 100 mg/ (Sodium Chloride) 250 mls @ 166.67 mls/hr IV Q12H [facility] Magnesium Hydroxide (Milk Of Magnesia 30 Ml Oral.Susp) 30 ml PO DAILY PRN PRN Reason: Constipation Melatonin (Melatonin 3 Mg Tablet) 6 mg PO BEDTIME PRN PRN Reason: Insomnia Oxycodone HCl (Oxycodone Hcl Immed Release 5 Mg Tablet) 5 mg PO Q6H PRN PRN Reason: Pain, Moderate(Pain Scale 4-6) Sodium Chloride (0.9 % Sodium Chloride Flush 3 Ml Syringe) 3 ml IVFLUSH QSHIFT [facility] Last Admin: 10/24/24 07:40 Dose: 3 ml Home Medications ?Medication ?Instructions ?Recorded ?Confirmed ?Last Taken ?Type allopurinol 100 mg tablet 200 mg PO DAILY 11/09/2005/2010/22/24 History carisoprodol 350 mg tablet 700 mg PO TID 11/09/20 07/05/2010/22/24 History glipizide 2.5 mg tablet, extended 1 tab PO BID 10/24/24 10/22/24 History release 24 hr omeprazole 20 mg capsule,delayed 20 mg PO DAILY@0630 0 11/09/20 10/24/24 10/22/24 History release furosemide 20 mg tablet 20 mg PO DAILY 08/19/2205/2010/22/24 History omega 7-sik-rfb-fish oil 1,000 mg 1 cap PO DAILY 12/0910/24/24 10/22/24 History (120 mg-180 mg) capsule (Fish Oil) oxycodone 20 mg tablet,crush 20 mg PO DAILY@1500 12/0910/24/24 10/22/24 History resistant,extended release 12 hr (OxyContin) clopidogrel 75 mg tablet 75 mg PO DAILY 03/26/23/05/2010/22/24 History simvastatin 40 mg tablet 40 mg PO BEDTIME 03/26/2310/22/24 History losartan 50 mg tablet 50 mg PO DAILY 11/15/23/0 05/2010/22/24 History ondansetron 4 mg disintegrating 4 mg PO Q8H PRN Nausea And Vomiting 11/15/23 10/24/24 Unknown History tablet fluticasone fur. 100 mcg-umeclid 1 ea inhalation DAILY 10/24/24 10/24/24 10/22/24 History 62.5 mcg-vilant 25 mcg inhalat.powder (Trelegy Ellipta) Physical Exam 2 Vital Signs: Vital Signs: Last Vital Signs Temp 98.2 F 10/24/24 11:13 Pulse 90 10/24/24 11:13 Resp 18 10/24/24 11:13 BP 127/64 10/24/24 11:13 Pulse Ox 95 10/24/24 11:13 O2 Del Method Nasal Cannula 10/24/24 11:13 O2 Flow Rate 4 10/24/24 11:13 Oxygen Flow Rate 2 10/24/24 04:22 BMI result Body Mass Index 34.4 Neuro: Other: He is alert and follows simple commands but has great difficulty expressing himself including his name. He is able to repeat simple words. His comprehension appears to be intact. He has no visual field cut. Extraocular movements are full. There is no clear facial asymmetry. He has right hemiparesis graded at 4 to 4+/5. Slight right-sided hyperreflexia. Extensor plantar response on the right. Results Labs 10/24/24 03:59 10/24/24 03:59 Labs: Short CBC 10/24/24 Range/Units 03:59 WBC 9.2 (4.8-10.8) X10*3/uL Hgb 13.3 L (14.0-18.0) g/dl Hct 41.1 L (42.0-52.0) % Plt Count 151 L (160-400) X10*3/uL BMP 10/24/24 03:59 Sodium 142 Potassium 4.5 Chloride 111 H Carbon Dioxide 19 L BUN 33 H Creatinine 1.50 H Calcium 8.2 L D Urine 10/24/24 Range/Units 05:20 Urine Color Yellow Urine Appearance Clear Urine pH 5.5 (5.0-9.0) Ur Specific [place] 1.020 (1.005-1.025) Urine Protein 30 (1+) H (Neg-Trace) mg/dL Urine Glucose (UA) >=1000 H (Negative) mg/dL Assessment and Plan (1) Altered mental status: Qualifiers: Altered mental status type: stupor Qualified Code(s): R40.1 - Stupor Status: Acute Probably related to UTI. No clear evidence of a new stroke. Known left internal carotid occlusion with left hemisphere stroke in the remote past. (2) Aphasia as late effect of cerebrovascular accident: Status: Acute This appears to be a pre-existing problem. That temporary worsening could be related to his UTI. I would recommend doing an MRI of the brain to see if there has been extension of the stroke. Procedures Date of Service Date of Service: 10/24/24
--- NOTE | 2024-10-24 12:36 | PC.NURSE ---
received tiger text from MRI saying pt was not able to tolerate procedure. MD notified. plan to retry later as MRI schedule is consulted. Plan for medication prior to MRI.
--- NOTE | 2024-10-24 13:29 | PM.EVENT ---
Event Note Date of Service: 10/24/24 Event Note: Chart reviewed patient examined. Agree with H&P and plan as ordered Time Spent With Patient Time: Total time managing care of this patient today ____ minutes.
[2024-10-24] MEDS: oxyCODONE HCl Immed Release 5 MG TABLET PO (15:28)
--- NOTE | 2024-10-24 15:28 | MHC.CM.PN ---
IMM 10/24/24 DX CVA CVA 2022 Patient lives with his and other family members. He requires assist with ADLS. [employer] services through [employer]. DME Rollator, Oxygen @ NOC 2L via NC. In place of CPAP. Mask issues unable to use CPAP @ home. Rehab facility preference obtained. A referral has been sent to [facility]. [facility] via BLS. A referral has been sent to the Acute Rehab. A copy of the patient HCP has been requested. No HCP on file.
--- NOTE | 2024-10-24 15:36 | MHC.SP.ADU ---
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 The patient has had a hard time formulating words. His last known well time was 2100 last night. the patient is unable to give a history at this time and has a hard time following commands. In the ED the patient was found to have a urinary tract infection, no sepsis. Head CT negative. CTA head and neck with left ICA occlusion, chronic. His case was discussed with in-house Neurology, Dr. Nunn, as well as [facility] neuro retail shift supervisor, Dr. Brar, who both agreed no intervention appropriate at this time, mechanical thrombectomies not indicated, nor tNK. He was also found to be hypoxic with pneumonia. Medical History: Other: Medical History Carotid stenosis, right TIA (transient ischemic attack) Chronic renal failure (CRF), stage 3 (moderate) LBBB (left bundle branch block) Cardiomyopathy CHF (congestive heart failure) Chronic back pain Sleep apnea Oxygen dependent Lung nodule CVA (cerebral vascular accident) Respiratory Needs: Nasal Cannula Patient Orientation: Unable to Assess Social History: Employment Status: Unknown Highest level of education obtained: Unknown/Unable to report Current Living Situation: lives w/ spouse Assistive Devices in use: Comment: UNK Past Speech Language Therapy: UNK Other Therapies Seen in Current Calendar Year: Unknown Swallowing History: Dysphagia Specific: Risk of Aspiration Comments: Pt failed RN swallow screen d/t wet cough. Pt did not follow commands for PANELBOARD OPERATOR during oral motor exam. Pt demonstrating expressive and receptive aphasia. Did not produce verbal speech. Pt producing loud dry cough intermittently throughout PANELBOARD OPERATOR visit. No wet cough observed. Pt tolerated thin liquids and ground solids. Pt presented w/ prolonged mastication w/ chopped solids. Pt w/ sparse dentition upper & lower. Pre-eval Risk for Aspiration: Neurological Condition Pre-evaluation Dietary Consistencies: NPO Pre-eval Liquid Intake: NPO Pre-eval Medication Intake: NPO Reported Speech, Language, Cognition difficulties: Understanding Speaking Swallowing Comments: Patient presents with moderate anomic aphasia and mild dysarthria. Receptive language on inititial screening WFL. Patient Stated Goal of Speech-Language Therapy: PANELBOARD OPERATOR to follow for dysphagia & aphasia Impressions and Recommendations Summary: Recommend UPGRADE to GROUND/MECH ALTERED solids (NDD2) and THIN liquids. Pills crushed in PUREE. Requires 1-1 assist d/t inability to use RUE. PANELBOARD OPERATOR to continue to follow to monitor toleration of diet. PANELBOARD OPERATOR to follow to provide further assessment of aphasia. Recommendation for Speech Therapy: Further Testing Needed Inpatient Speech Therapy Frequency/Duration: M-F Patient Education: Completed: Yes Patient/Caregiver Education: Described Results of Evaluation Comments/Barriers to Learning: ?understanding End Polisher Clinican/Clinical Fellow: No Supervisory Statement: N/A Speech Language Pathologist: Batsheva Del Real M.A., [facility]PANELBOARD OPERATOR
[2024-10-24] MEDS: Aspirin Enteric Coated 81 MG TABLET.DR PO (18:54)
[2024-10-25] VITALS (7 sets, daily range): BP systolic 130–176; BP diastolic 60–82; PULSE 80–92; RESP 17–20; TEMP 36.6–37.2; O2SAT 92–97
[2024-10-25 06:12] LABS: MANUAL DIFF FLAG NO
[2024-10-25 06:15] LABS: Hematocrit 39.8 % (42.0-52.0); Hemoglobin 12.9 g/dl (14.0-18.0); Imm Gran Abs Auto 0.02 X10*3/uL (0.00-0.03); Imm Gran Pct Auto 0.3 % (0.0-0.4); Lymphocytes Absolute Auto 0.7 X10*3/uL (1.2-4.9); Mean Corpuscular HGB Conc 32.4 g/dl (31.0-36.0); Mean Corpuscular Hemoglobin 31.7 pg (27.0-33.0); Mean Corpuscular Volume 97.8 fL (80.0-98.0); NRBC Abs Auto 0.000 X10*3/uL (0.0-0.012); NRBC Pct Auto 0.0 /100WBC (0.0-0.2); Platelet Count 142 X10*3/uL (160-400); Red Blood Count 4.07 X10*6/uL (4.60-5.80); White Blood Count 6.2 X10*3/uL (4.8-10.8)
[2024-10-25 06:37] LABS: Anion Gap 15 (12-20); Blood Urea Nitrogen 23 mg/dL (9-16); Calcium 9.0 mg/dL (8.4-10.2); Carbon Dioxide 20 mmol/L (22-29); Chloride 113 mmol/L (96-108); Creatinine Clr Calc Pharmacy 80.9; Estimated Glomerular Filt Rate > 60; Potassium 4.2 mmol/L (3.3-5.1); Sodium 144 mmol/L (135-145)
[2024-10-25] MEDS: Aspirin Enteric Coated 81 MG TABLET.DR PO (08:31)
[2024-10-25] MEDS: oxyCODONE HCl ER 10 MG TAB.ER.12H 30 MG PO ×2 (08:32→21:25)
[2024-10-25] MEDS: 0.9 % Sodium Chloride Flush 3 ML SYRINGE IVFLUSH ×2 (08:34→17:28)
--- NOTE | 2024-10-25 10:54 | MHC.CM.PN ---
Per ROUNDS discussion, Patient is not yet medically cleared for dc (blood cultures are pending); [facility] is following and CM will continue to follow.
--- NOTE | 2024-10-25 12:43 | PM.NEUROPN ---
Subjective Subjective Date of Service: 10/25/24 Critical Care Time (minutes): 0 Physical Exam Vital Signs: Vital Signs: Last Vital Signs Temp 98.9 F 10/25/24 11:26 Pulse 92 10/25/24 11:26 Resp 20 10/25/24 11:26 BP 139/60 10/25/24 11:26 Pulse Ox 95 10/25/24 11:26 O2 Del Method Nasal Cannula 10/25/24 11:26 O2 Flow Rate 4 10/25/24 11:26 Oxygen Flow Rate 2 10/24/24 04:22 BMI result Body Mass Index 34.2 Objective Data Labs 10/25/24 05:49 10/25/24 05:49 Labs: Laboratory Results - last 24 hr 10/25/24 05:49 WBC 6.2 RBC 4.07 L Hgb 12.9 L Hct 39.8 L MCV 97.8 MCH 31.7 MCHC 32.4 RDW 14.4 Plt Count 142 L MPV 10.8 Immature Gran % (Auto) 0.3 Neut % (Auto) 71.0 Lymph % (Auto) 10.7 L [place] % (Auto) 11.9 H Eos % (Auto) 5.8 H Baso % (Auto) 0.3 Lymph # (Auto) 0.7 L [place] # (Auto) 0.7 Eos # (Auto) 0.4 Baso # (Auto) 0.0 Abs Immat Gran (auto) 0.02 Absolute Neuts (auto) 4.4 Absolute Nucleated RBC 0.000 Nucleated RBC % (auto) 0.0 Sodium 144 Potassium 4.2 Chloride 113 H Carbon Dioxide 20 L Anion Gap 15 BUN 23 H Creatinine 0.94 Estim Creat Clear Calc 80.9 Estimated GFR > 60 Random Glucose 130 H Calcium 9.0 D Microbiology Microbiology Results: Microbiology 10/24/24 Unknown Urine Catheterized - Alvarez Catheter Urine Culture - Preliminary Culture in progress. 10/24/24 05:00 Blood - Venous Blood Culture - Preliminary No growth after 24 hours. 10/24/24 04:50 Blood - Venous Blood Culture - Preliminary No growth after 24 hours. Progress Note: A&P Assessment and plan (1) Altered mental status: Status: Acute (2) Cerebrovascular accident: Status: Acute Plan I reviewed his MRI and disagree with the report. I do not see any evidence of acute multifocal infarcts in the left hemisphere. There is an old infarct in the left parieto-occipital region. Recommendation continue current medications. Radiology will be contacted to review the report Time Spent With Patient Time: Total time managing care of this patient today _5___ minutes. Procedures Date of Service Date of Service: 10/25/24 Quality Stroke Does the patient have a stroke diagnosis?: Yes Reason for No Anti-thrombotic by Day Two: Drug treatment not indicated VTE Prior VTE?: No VTE Risk Level:: Medical - moderate - high VTE Device Contraindication: Treatment Not Indicated VTE Drug Contraindication: N/A - Med Ordered
--- NOTE | 2024-10-25 13:41 | MHC.SL.SWA ---
Speech Pathologist Impression: Risk of Aspiration Risk of Aspiration Due to: Neurological Condition Dysphasia Diet Status: Ongoing assessment of speech/language/cognition Liquid Consistency and Strategies for Safe Swallow: Liquid Intake Recommendation: Liquid Intake Strategies: Solid Food Consistency: Dietary Recommendations: Grnd/Mech Altered (NDD2) Additional Modifications to Solid Foods: Oral Medication Intake: Crushed with Puree Please contact the pharmacy regarding appropriate crushable or liquid drug formulations that are available whenever modified delivery is recommended. Compensatory Strategies and Precautions to be Taken for Safe Swallow: Supervision While Eating and Drinking for Safe Swallow: Foods to Avoid: Swallowing Recommended Treatments: Recommendation for Speech: Further Testing Needed Inpatient Speech Therapy Comment: Baseline consistency of solids was regular, pt currently on NDD2 with thins. [facility] DONATION WORKER intervention for dysphagia and aphasia. Frequency/Duration: Date Range for Service Req: Timeline to reassess: Shipping Receiving Manager Clinican/Clinical Fellow: No Supervisory Statement: I have reviewed and agree with the student/clinical fellow's documentation: N/A Speech Language Pathologist: Polly Severino M.S., CCC-DONATION WORKER
--- NOTE | 2024-10-25 13:42 | MHC.SP.ADU ---
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 The patient has had a hard time formulating words. His last known well time was 2100 last night. the patient is unable to give a history at this time and has a hard time following commands. In the ED the patient was found to have a urinary tract infection, no sepsis. Head CT negative. CTA head and neck with left ICA occlusion, chronic. His case was discussed with in-house Neurology, Dr. Nunn, as well as [facility] neuro blanket cutter hand, Dr. Brar, who both agreed no intervention appropriate at this time, mechanical thrombectomies not indicated, nor tNK. He was also found to be hypoxic with pneumonia. Medical History: Other: Medical History Carotid stenosis, right TIA (transient ischemic attack) Chronic renal failure (CRF), stage 3 (moderate) LBBB (left bundle branch block) Cardiomyopathy CHF (congestive heart failure) Chronic back pain Sleep apnea Oxygen dependent Lung nodule CVA (cerebral vascular accident) Medication List: Recent Hospitalizations: Respiratory Needs: Nasal Cannula Patient Orientation: Unable to Assess Social History: Employment Status: Unknown Highest level of education obtained: Unknown/Unable to report Current Living Situation: lives w/ spouse Assistive Devices in use: Comment: UNK Past Speech Language Therapy: UNK Other Therapies Seen in Current Calendar Year: Unknown Other: Swallowing History: Dysphagia Specific: Risk of Aspiration Comments: Pt failed RN swallow screen d/t wet cough. Pt did not follow commands for DISABILITY BENEFITS SPECIALIST during oral motor exam. Pt demonstrating expressive and receptive aphasia. Did not produce verbal speech. Pt producing loud dry cough intermittently throughout DISABILITY BENEFITS SPECIALIST visit. No wet cough observed. Pt tolerated thin liquids and ground solids. Pt presented w/ prolonged mastication w/ chopped solids. Pt w/ sparse dentition upper & lower. Pre-eval Risk for Aspiration: Neurological Condition Pre-evaluation Dietary Consistencies: Grnd/Mech Altered (NDD2) Pre-eval Liquid Intake: Thin Pre-eval Medication Intake: Crushed with Puree Reported Speech, Language, Cognition difficulties: Understanding Speaking Swallowing Comments: Patient presents with moderate anomic aphasia and mild dysarthria. Receptive language on inititial screening WFL. Quality of Life: Patient Stated Goal of Speech-Language Therapy: DISABILITY BENEFITS SPECIALIST to follow for dysphagia & aphasia Assessment Speech Production: Clinical Impression: Observations: Informal Voice Assessment: Voice Loudness: Voice Nasal Resonance: Voice Oral Resonance: Voice Phonatory-based Quality: Voice Pitch: Voice Other Observations: Clinical Impression: Clinicial Observations: Tests of Speech & Lang Adults: Clinical Impression: Observations: Tests of Cognition: Clinical Impression: Observations: Augmentative and Alternative Communication: Observations: Impressions and Recommendations Summary: 10/25 Pt sitting upright in chair, daughter at bedside. Pt responding with facial expressions more often than with verbalizations. Daughter noted pt has been saying more words today than yesterday, but that he has trouble communicating. She reported pt had DISABILITY BENEFITS SPECIALIST intervention in the past when he had a CVA in October 2022 and was familiar with cueing strategies as she was observed using during this visit. Pt presents with moderate receptive and expressive aphasia. Pt able to follow simple single step commands during language tasks given model and repetition. Pt answered simple one word questions with inconsistent efficiency. Pt did not comprehend 2/5 orientation questions. Pt able to complete rote sequences with 80% accuracy, but was unable to self-correct in the presence of word errors. Impact on Daily Function/Activity Limitations: Daily Activities: Moderate Interpersonal Interactions: Moderate Education: Employment: Community: Moderate Prognosis for Improvement: Good Recommendation for Speech Therapy: Further Testing Needed Inpatient Speech Therapy Recommended Referrals to be Discussed with Primary Care Provider: Patient Education: 10/25 DISABILITY BENEFITS SPECIALIST provided education and review of results of assessment conducted yesterday during inpatient regarding aphasia and dysphagia. Pt daughter verbalized understanding and agreed with POC for continued DISABILITY BENEFITS SPECIALIST intervention at the next setting. Pt was attentive when listening, but exhibited poor comprehension of lengthy information, with flat affect and no response. DISABILITY BENEFITS SPECIALIST reiterated recommendations in simplified sentences, to which pt responded with facial expression and nodding. Completed: Yes Patient/Caregiver Education: Described Results of Evaluation Comments/Barriers to Learning: ?understanding Guest Services Agent Clinican/Clinical Fellow: No Supervisory Statement: N/A Speech Language Pathologist: Polly Severino M.S., [facility]-DISABILITY BENEFITS SPECIALIST
[2024-10-25] MEDS: oxyCODONE HCl ER 10 MG TAB.ER.12H 20 MG PO (14:26)
--- NOTE | 2024-10-25 14:34 | MHC.SL.SWA ---
Speech Pathologist Impression: Risk of Aspiration. [facility] diet as ordered, NDD2 with thins, aspiration precautions, family education to reduce risk for aspiration. Oropharyngeal strengthening tx indicated. Risk of Aspiration Due to: Neurological Condition Residual oropharyngeal weakness s/p CVA Dysphasia Diet Status: Ongoing assessment of speech/language/cognition Liquid Consistency and Strategies for Safe Swallow: Liquid Intake Recommendation: Thin Liquid Intake Strategies: Solid Food Consistency: Dietary Recommendations: Grnd/Mech Altered (NDD2) Additional Modifications to Solid Foods: Oral Medication Intake: Crushed with Puree Please contact the pharmacy regarding appropriate crushable or liquid drug formulations that are available whenever modified delivery is recommended. Compensatory Strategies and Precautions to be Taken for Safe Swallow: Sitting Upright (90 deg) Small Bites and Sips Alternate Liquids/Solids Rate of Ingestion Change Oral Check Supervision While Eating and Drinking for Safe Swallow: Direct Supervision (1:1) Foods to Avoid: Swallowing Recommended Treatments: Oral Motor Exercises Pharyngeal Resistive Exer Compens. Strategy Educat. Recommendation for Speech: Further Testing Needed Inpatient Speech Therapy Comment: Pt seen for dysphagia re-eval at daughter's request. Daughter notes pt doesn't like current diet and she has been bringing him food from the cafeteria. RNs present during re-eval. Pt tolerating purees/ground solids and thin liquids. Trials of jono cracker initiated. Pt fed himself by putting 1/4 of jono cracker into mouth, with adequate labial closure. Pt unable to formulate bolus with this conservative sized bite of solid d/t reduced lingual ROM and R sided pocketing. Pt attempted to alternate consistencies to moisten bolus but coughed s/p swallow, indicating airway penetration. Trials discontinued, pt is not able to coordinate efficient oral prep phase d/t residual weakness s/p recent CVA. [facility] diet as ordered, NDD2 with thins, aspiration precautions, family education to reduce risk for aspiration. Oropharyngeal strengthening tx indicated. [facility] DRILL PRESS TENDER intervention for dysphagia and aphasia. Frequency/Duration: Date Range for Service Req: Timeline to reassess: Waste Water Worker Clinican/Clinical Fellow: No Supervisory Statement: I have reviewed and agree with the student/clinical fellow's documentation: N/A Speech Language Pathologist: Polly Severino M.S., CCC-DRILL PRESS TENDER
--- NOTE | 2024-10-25 15:56 | P.PNIM_ITS ---
Subjective Subjective Date of Service: 10/25/24 Interval History: Continues to improve strength in right arm. Expressive aphasia persists Review of Systems Unable to obtain Physical Exam 2 Vital Signs: Vital Signs: Last Vital Signs Temp 98.2 F 10/25/24 15:28 Pulse 90 10/25/24 15:28 Resp 18 10/25/24 15:28 BP 141/77 H 10/25/24 15:28 Pulse Ox 95 10/25/24 15:28 O2 Del Method Nasal Cannula 10/25/24 15:28 O2 Flow Rate 4 10/25/24 15:28 Oxygen Flow Rate 2 10/24/24 04:22 BMI result Body Mass Index 34.2 Const: Other: Awake alert expressive aphasia Resp: Other: Scant crackles right base otherwise clear Cardio: Other: No S4; positive S1-S2; no S3 murmurs rubs or gallops GI: Other: Soft nontender nondistended normoactive bowel sounds Neuro: Other: Dense right hemiparesis; expressive aphasia Extrem: Other: No edema bilaterally Objective Data Active Medications Acetaminophen (Acetaminophen 325 Mg Tablet) 975 mg PO Q6H PRN PRN Reason: Pain, Mild 1-3,fever,headache Allopurinol (Allopurinol 100 Mg Tablet) 200 mg PO DAILY [facility] Last Admin: 10/25/24 08:33 Dose: 200 mg Documented By: MEREDITH Aspirin (Aspirin Enteric Coated 81 Mg Tablet.) 81 mg PO DAILY [facility] Last Admin: 10/25/24 08:31 Dose: 81 mg Documented By: MEREDITH Atorvastatin Calcium (Atorvastatin Calcium 80 Mg Tablet) 80 mg PO DAILY [facility] Last Admin: 10/25/24 08:33 Dose: 80 mg Documented By: MEREDITH Calcium Carbonate (Calcium Carbonate 750 Mg Tab.Chew) 750 mg PO Q4H PRN PRN Reason: Heartburn Carisoprodol (Carisoprodol 350 Mg Tablet) 700 mg PO TID [facility] Last Admin: 10/25/24 08:30 Dose: 700 mg Documented By: MEREDITH Carvedilol (Carvedilol 6.25 Mg Tablet) 6.25 mg PO BID [facility]; Protocol Last Admin: 10/25/24 08:33 Dose: 6.25 mg Documented By: MEREDITH Ceftriaxone Sodium (Ceftriaxone Sodium 1 Gm Vial) 1 gm IVPUSH Q24H [facility] Last Admin: 10/25/24 06:09 Dose: 1 gm Documented By: BRIONNA Clopidogrel Bisulfate (Clopidogrel Bisulfate 75 Mg Tablet) 75 mg PO DAILY [facility] Last Admin: 10/25/24 08:31 Dose: 75 mg Documented By: MEREDITH Dextrose (Dextrose 50 % 25 Gm/50 Ml Syringe) 25 gm IVPUSH Q15M PRN; Protocol PRN Reason: per Hypoglycemia Standing Ord. Fluticasone/Umeclidinium/Vilanterol (Fluticasone/Umeclidinium/Vilanterol 100/62.5/ Blst.W.Dev) 1 puff INHALE RDAILY [facility] Last Admin: 10/25/24 07:37 Dose: Not Given Documented By: JAKE Non-Admin Reason: pharmacy called for med Furosemide (Furosemide 20 Mg Tablet) 20 mg PO DAILY [facility]; Protocol Last Admin: 10/25/24 08:31 Dose: 20 mg Documented By: MEREDITH Glucose (Glucose Gel 15 Gm Gel..Gram.) 15 gm PO Q15M PRN; Protocol PRN Reason: per Hypoglycemia Standing Ord. Heparin Sodium (Porcine) (Heparin Sodium,Porcine 5,000 Unit/Ml Vial) 5,000 unit SUBCUT Q12H [facility] Last Admin: 10/25/24 08:34 Dose: 5,000 unit Documented By: MEREDITH Doxycycline Hyclate 100 mg/ (Sodium Chloride) 250 mls @ 166.67 mls/hr IV Q12H [facility] Last Infusion: 10/25/24 08:41 Dose: Infused Documented By: MEREDITH Losartan Potassium (Losartan Potassium 50 Mg Tablet) 50 mg PO DAILY [facility]; Protocol Last Admin: 10/25/24 08:33 Dose: 50 mg Documented By: MEREDITH Magnesium Hydroxide (Milk Of Magnesia 30 Ml Oral.Susp) 30 ml PO DAILY PRN PRN Reason: Constipation Melatonin (Melatonin 3 Mg Tablet) 6 mg PO BEDTIME PRN PRN Reason: Insomnia Oxycodone HCl (Oxycodone Hcl Immed Release 5 Mg Tablet) 5 mg PO Q6H PRN PRN Reason: Pain, Moderate(Pain Scale 4-6) Last Admin: 10/24/24 15:28 Dose: 5 mg Documented By: ANABELL Oxycodone HCl (Oxycodone Hcl Er 10 Mg Tab.Er.12h) 20 mg PO DAILY@1500 [facility] Last Admin: 10/25/24 14:26 Dose: 20 mg Documented By: ROSALBA Oxycodone HCl (Oxycodone Hcl Er 10 Mg Tab.Er.12h) 30 mg PO BID [facility] Last Admin: 10/25/24 08:32 Dose: 30 mg Documented By: MEREDITH Pantoprazole Sodium (Pantoprazole Sodium 20 Mg Tablet.Dr) 20 mg PO DAILY@0630 [facility] Last Admin: 10/25/24 05:14 Dose: Not Given Documented By: BRIONNA Non-Admin Reason: cannot crush Sodium Chloride (0.9 % Sodium Chloride Flush 3 Ml Syringe) 3 ml IVFLUSH QSHIFT [facility] Last Admin: 10/25/24 08:34 Dose: 3 ml Documented By: MEREDITH Labs 10/25/24 05:49 10/25/24 05:49 Labs: Laboratory Results - last 24 hr 10/25/24 05:49 MCV 97.8 MCH 31.7 MCHC 32.4 RDW 14.4 Plt Count 142 L MPV 10.8 Immature Gran % (Auto) 0.3 Neut % (Auto) 71.0 Lymph % (Auto) 10.7 L Andrew % (Auto) 11.9 H Eos % (Auto) 5.8 H Baso % (Auto) 0.3 Lymph # (Auto) 0.7 L Andrew # (Auto) 0.7 Eos # (Auto) 0.4 Baso # (Auto) 0.0 Abs Immat Gran (auto) 0.02 Absolute Neuts (auto) 4.4 Absolute Nucleated RBC 0.000 Nucleated RBC % (auto) 0.0 Anion Gap 15 Estim Creat Clear Calc 80.9 Estimated GFR > 60 Random Glucose 130 H Calcium 9.0 D Microbiology Microbiology Results: Microbiology 10/24/24 Unknown Urine Culture - Preliminary Urine Catheterized - Alvarez Catheter Culture in progress. 10/24/24 05:00 Blood Culture - Preliminary Blood - Venous No growth after 24 hours. 10/24/24 04:50 Blood Culture - Preliminary Blood - Venous No growth after 24 hours. 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 In the ED the patient was found to have a urinary tract infection, no sepsis. Head CT negative. CTA head and neck with left ICA occlusion, chronic. His case was discussed with in-house Neurology, Dr. Nunn, as well as [facility] neuro employee representative, Dr. Brar, who both agreed no intervention appropriate at this time, mechanical thrombectomies not indicated, nor tNK. 1.Worsening right-sided hemiparesis and aphasia, likely secondary to acute infection - appreciate Dr. Ozuna's input. We will continue current therapies. No evidence of acute CVA - aspirin/high dose statin - PT/OT/speech evaluation.... Acute rehab recommended - NDD2 diet 2.Acute urinary tract infection - ceftriaxone (2) - divalent normalized - monitor CBC and BMP 3.Acute on chronic respiratory failure with hypoxia secondary to pneumonia - ceftriaxone/doxycycline (2) - monitor CBC and BMP 4.DM II - hold glipizide - lispro correctinal scale -adjust as indicated Moderate COPD, no acute exacerbation - continue home meds HTN - hold BP meds due to soft BP Chronic HFpEF, no acute exacerbation - continue home meds when appropriate CKD 3 - creatinine at baseline, no MARICHUY Left bundle branch block - EKG with sinus tachycardia KAREN - CPAP at bedtime Obesity, class 1 - BMI 34.4 - weight loss encouraged med rec pending full code VTE prophy: heparin Pt with worsening R hemiparesis, aphasia, CVA complicated by UTI and acute on chronic respiratory failure pneumonia, requiring admission for at least 2 midnights stay for IV abx, further evaluation and montioring. Quality Stroke Does the patient have a stroke diagnosis?: Yes Reason for No Anti-thrombotic by Day Two: Drug treatment not indicated VTE Prior VTE?: No VTE Risk Level:: Medical - moderate - high VTE Device Contraindication: Treatment Not Indicated VTE Drug Contraindication: N/A - Med Ordered
[2024-10-25 17:22] LABS: Glucose, Whole Blood 125 mg/dL (60-115)
[2024-10-25 21:06] LABS: Glucose, Whole Blood 125 mg/dL (60-115)
[2024-10-26] VITALS (7 sets, daily range): BP systolic 110–153; BP diastolic 53–72; PULSE 73–100; RESP 16–20; TEMP 36.6–37.5; O2SAT 94–98
[2024-10-26 06:20] LABS: MANUAL DIFF FLAG NO
[2024-10-26 06:49] LABS: Alanine Aminotransferase 11 U/L (0-40); Albumin Level 3.8 g/dL (3.5-5.0); Alkaline Phosphatase 188 U/L (39-117); Anion Gap 11 (12-20); Aspartate Amino Transferase 16 U/L (5-37); Blood Urea Nitrogen 23 mg/dL (9-16); Calcium 8.9 mg/dL (8.4-10.2); Carbon Dioxide 26 mmol/L (22-29); Chloride 112 mmol/L (96-108); Creatinine Clr Calc Pharmacy 79.2; Estimated Glomerular Filt Rate > 60; Potassium 3.9 mmol/L (3.3-5.1); Sodium 145 mmol/L (135-145); Total Protein 6.3 g/dL (6.5-8.0)
[2024-10-26 07:16] LABS: Hematocrit 40.9 % (42.0-52.0); Hemoglobin 13.1 g/dl (14.0-18.0); Imm Gran Abs Auto 0.03 X10*3/uL (0.00-0.03); Imm Gran Pct Auto 0.5 % (0.0-0.4); Lymphocytes Absolute Auto 1.0 X10*3/uL (1.2-4.9); Mean Corpuscular HGB Conc 32.0 g/dl (31.0-36.0); Mean Corpuscular Hemoglobin 31.1 pg (27.0-33.0); Mean Corpuscular Volume 97.1 fL (80.0-98.0); NRBC Abs Auto 0.000 X10*3/uL (0.0-0.012); NRBC Pct Auto 0.0 /100WBC (0.0-0.2); Platelet Count 159 X10*3/uL (160-400); Red Blood Count 4.21 X10*6/uL (4.60-5.80); White Blood Count 6.0 X10*3/uL (4.8-10.8)
[2024-10-26 07:59] LABS: Glucose, Whole Blood 128 mg/dL (60-115)
[2024-10-26] MEDS: Fluticasone/Umeclidinium/Vilanterol 100/62.5/25 BLST.W.DEV 1 PUFF INHALE (08:58)
[2024-10-26] MEDS: Aspirin Enteric Coated 81 MG TABLET.DR PO (09:09)
[2024-10-26] MEDS: oxyCODONE HCl ER 10 MG TAB.ER.12H 30 MG PO ×2 (09:10→20:13)
[2024-10-26] MEDS: 0.9 % Sodium Chloride Flush 3 ML SYRINGE IVFLUSH ×3 (09:17→20:24)
[2024-10-26 11:27] LABS: Glucose, Whole Blood 178 mg/dL (60-115)
[2024-10-26] MEDS: Milk of Magnesia 30 ML ORAL.SUSP PO (11:43)
--- NOTE | 2024-10-26 12:51 | MHC.SL.SOA ---
Referring Provider: Ashlyn Thibodeaux Reason for Referral: stroke, aphasia, failed RN swallow screen Date of Plan of Treatment:10/24/24 Onset of Symptoms/Illness:10/24/24 Date Treatment Started:10/24/24 Medical Diagnosis:?stroke Primary Speech Language Diagnosis:R47.01 Aphasia Secondary Speech Language Diagnosis:R13.10 Dysphagia Number of Authorized Visits Remaining: Authorization End Date: Reason for Visit:[id number] Individual Treatment Other: Subjective:Patient was seated in recliner chair with , daughter and brother present in room. Daughter immediately noted that I was a speech therapist before I introduced myself and asked if his swallow could be retested, as he didn't like the food on the diet he is currently on (NDD2/Thin). Daughter and family describe patient as Doing much better today, more communicative and aware of what is going on. Dr. Vega also was present for a portion of this visit, reporting that patient will be going to [facility] as soon as there is a bed available for him (could be today or tomorrow). Patient presented as still quite confused, clearly KIVALINA, responding at times with single words and some social communication routines. Objective: Patient was given subtests of the BDAE Short Version to assess langauge. Patient was re-assess for swallow for potential advancement of diet. Assessment reported below. Assessment:1. On the short form of the [place] Naming test, Patient readily labelled 12 of 15 items, with two items missed due to lack of prior knowledge (Sphinx, Palette) , and one with tip of tongue behavior, cued with both context and phonemic cue (hammock). 2. On the Cookie Theft narrative elicitation, patient demonstrated evident struggle to formulate language, after significant delay and question prompts, patient did say washing dishes but with prompts/questions and attention directed to features in the image, patient continued to struggle to formulate expression and evidenced frustration with effort. 3. On the Auditory Comprehension subtest of Word Comprehension Patient had difficulty initiating pointing to the two initial body parts (shoulder, cheek), however when presented with pictures, patient readily pointed to labelled pictures with no difficulty. (14/16 items presented). 4. ON Auditory Comprehension subtest of Complex Ideational Material_ patient demonstrated 50% accuracy (3/6), at times evidencing confusion and frustration with questions (e.g. Is a hammer good for cutting wood?). Summary/Conclusion: Patient evidences moderate receptive and expressive aphasia, with possible cognitive component due to level of confusion noted at times. Patient is able to label items, and receptively demonstrate comprehension of words, however continues to struggle with formulating language/responding in context; as well as processing and understanding contextual language. Family today describe patient's communication as greatly improved, it remains unclear if language behaviors noted are patient's baseline from previous stroke or new onset aphasia. Patient should continue to have ongoing assessment and intervention for language needs at next level of care. Dysphagia/Repeat Swallow assessment: Patient was given water by self administered cup sip and straw sip, with patient producing timely oral and pharyngeal phases of swallow with no clinical signs of aspiration. Patient was given softened cracker in pudding, with patient producing a slow mastication using limited dentition (scattered teeth on L side), with timely swallow and good oral clearance. Patient agreed to eat saltine (not liked by patient), again producing slow mastication of this consistency using limited dentition, followed by timely swallow with some oral residual, cleared by sip of liquid. Summary/Conclusion: Recommend ADVANCE diet to REGULAR, continue on thin liquids, pills whole with liquid or in puree. It was recommended to patient and family that they elect softer foods from the regular menu due to slow rate of mastication and patient's limited dentition. Family were agreeable to this recommendation. Toleration of diet, patient's swallow function should continue to be assessed by SHELF FILLER at next level of care. SHELF FILLER adjusted diet in [facility], advised RN and MD of diet advancement in person. Notes: Ongoing assessment of speech/language/cognition Plan: Goal # : Status of Goal: Goal # : Status of Goal: Goal # : Status of Goal: Goal # : Status of Goal: Seen by: Graduate/Clinical Fellow: No Supervisory Statement: f_Reg Query Last Value , MHC.AU.SIGNATUR Speech Language Pathologist: Kellee De La Cruz M.A., [facility]
--- NOTE | 2024-10-26 14:19 | MHC.CM.PN ---
PT is recommending Acute Rehab; [facility] has denied Patient but [facility] anticipates admitting Patient on 10/28/2024. MD is aware and CM will continue to follow.
--- NOTE | 2024-10-26 14:31 | MHC.CM.PN ---
CM assisted Patient with the completion of a HCP; Patient has named his /Sarah as his Agent.
--- NOTE | 2024-10-26 15:01 | PM.NEUROCN ---
History of Present Illness Data of Consult Service Date: 10/26/24 Primary Care Provider: Unknown Physician HPI Reason for consult: Stroke 79 years old man who came to emergency room with new onset of right-sided weakness and was evaluated by emergency room physician discussed with me and then seen by my partner Dr. Ozuna. I was asked to come in tone his MRI of brain which I reviewed with radiologist today [facility] Past Medical History Medical History Carotid stenosis, right TIA (transient ischemic attack) Chronic renal failure (CRF), stage 3 (moderate) LBBB (left bundle branch block) Cardiomyopathy CHF (congestive heart failure) Chronic back pain Sleep apnea Oxygen dependent Lung nodule CVA (cerebral vascular accident) Family History Family History Father Cirrhosis Mother Myocardial infarction Enlarged heart Sister No problems noted. Sister No problems noted. Surgical History Surgical History History of lithotripsy History of vasectomy History of back surgery Social History Social History Household Members: Unknown / Unable to assess Household Members Other:: pt said I dont Know Housing: Unknown / Unable to assess Housing Other:: pt said I dont Know Do you presently have visiting nurse or other home services: No Alcohol intake: former Year quit: 1979 Patient Tobacco Use Status: Never used Tobacco Tobacco use type: Cigarette Years Smoked: ~20 Quit 36 years ago e-Cigarette/Vaping Use: Never Used Substance Use Type: Marijuana Advance Directives Date on File: 03/27/23 service: No Current occupational status: retired Meds Allergies Allergy/AdvReac Type Severity Reaction Status Date / Time adhesive Allergy Severe Rash Verified 10/24/24 04:25 morphine (MORPHINE) Allergy Severe NAUSEA Verified 10/24/24 04:25 codeine (CODEINE) Allergy Intermediate RASH Verified 10/24/24 04:25 ibuprofen (From MOTRIN) Allergy Unknown told to Verified 10/24/24 04:25 avoid due to kidneys Active Medications: Current Medications Acetaminophen (Acetaminophen 325 Mg Tablet) 975 mg PO Q6H PRN PRN Reason: Pain, Mild 1-3,fever,headache Allopurinol (Allopurinol 100 Mg Tablet) 200 mg PO DAILY [facility] Last Admin: 10/26/24 09:08 Dose: 200 mg Aspirin (Aspirin Enteric Coated 81 Mg Tablet.Dr) 81 mg PO DAILY [facility] Last Admin: 10/26/24 09:09 Dose: 81 mg Atorvastatin Calcium (Atorvastatin Calcium 80 Mg Tablet) 80 mg PO DAILY [facility] Last Admin: 10/26/24 09:06 Dose: 80 mg Calcium Carbonate (Calcium Carbonate 750 Mg Tab.Chew) 750 mg PO Q4H PRN PRN Reason: Heartburn Carisoprodol (Carisoprodol 350 Mg Tablet) 700 mg PO TID [facility] Last Admin: 10/26/24 09:06 Dose: 700 mg Carvedilol (Carvedilol 6.25 Mg Tablet) 6.25 mg PO BID [facility]; Protocol Last Admin: 10/26/24 09:08 Dose: 6.25 mg Ceftriaxone Sodium (Ceftriaxone Sodium 1 Gm Vial) 1 gm IVPUSH Q24H [facility] Last Admin: 10/26/24 06:21 Dose: 1 gm Clopidogrel Bisulfate (Clopidogrel Bisulfate 75 Mg Tablet) 75 mg PO DAILY [facility] Last Admin: 10/26/24 09:09 Dose: 75 mg Dextrose (Dextrose 50 % 25 Gm/50 Ml Syringe) 25 gm IVPUSH Q15M PRN; Protocol PRN Reason: per Hypoglycemia Standing Ord. Fluticasone/Umeclidinium/Vilanterol (Fluticasone/Umeclidinium/Vilanterol 100/62.5/25 Blst.W.Dev) 1 puff INHALE RDAILY [facility] Last Admin: 10/26/24 08:58 Dose: 1 puff Furosemide (Furosemide 20 Mg Tablet) 20 mg PO DAILY [facility]; Protocol Last Admin: 10/26/24 09:09 Dose: 20 mg Glucose (Glucose Gel 15 Gm Gel..Gram.) 15 gm PO Q15M PRN; Protocol PRN Reason: per Hypoglycemia Standing Ord. Heparin Sodium (Porcine) (Heparin Sodium,Porcine 5,000 Unit/Ml Vial) 5,000 unit SUBCUT Q12H [facility] Last Admin: 10/26/24 09:13 Dose: 5,000 unit Doxycycline Hyclate 100 mg/ (Sodium Chloride) 250 mls @ 166.67 mls/hr IV Q12H [facility] Last Infusion: 10/26/24 11:10 Dose: Infused Insulin Human Lispro (Insulin Lispro 100 Unit/Ml 3 Ml Vial) 0 unit SUBCUT QIDACHS [facility]; Protocol Last Admin: 10/26/24 11:43 Dose: 2 unit Losartan Potassium (Losartan Potassium 50 Mg Tablet) 50 mg PO DAILY [facility]; Protocol Last Admin: 10/26/24 09:13 Dose: 50 mg Magnesium Hydroxide (Milk Of Magnesia 30 Ml Oral.Susp) 30 ml PO DAILY PRN PRN Reason: Constipation Last Admin: 10/26/24 11:43 Dose: 30 ml Melatonin (Melatonin 3 Mg Tablet) 6 mg PO BEDTIME PRN PRN Reason: Insomnia Oxycodone HCl (Oxycodone Hcl Immed Release 5 Mg Tablet) 5 mg PO Q6H PRN PRN Reason: Pain, Moderate(Pain Scale 4-6) Last Admin: 10/24/24 15:28 Dose: 5 mg Oxycodone HCl (Oxycodone Hcl Er 10 Mg Tab.Er.12h) 20 mg PO DAILY@1500 [facility] Last Admin: 10/25/24 14:26 Dose: 20 mg Oxycodone HCl (Oxycodone Hcl Er 10 Mg Tab.Er.12h) 30 mg PO BID [facility] Last Admin: 10/26/24 09:10 Dose: 30 mg Pantoprazole Sodium (Pantoprazole Sodium 20 Mg Tablet.Dr) 20 mg PO DAILY@06 [facility] Last Admin: 10/26/24 05:15 Dose: Not Given Sodium Chloride (0.9 % Sodium Chloride Flush 3 Ml Syringe) [facility] Last Admin: 10/26/24 09:17 Dose: 3 ml Home Medications ?Medication ?Instructions ?Recorded ?Confirmed ?Last Taken ?Type allopurinol 100 mg tablet 200 mg PO DAILY 11/09/20 10/24/24 10/22/24 History carisoprodol 350 mg tablet 700 mg PO TID 11/09/20 10/24/24 10/22/24 History glipizide 2.5 mg tablet, extended 1 tab PO BID 11/09/20 10/24/24 10/22/24 History release 24 hr omeprazole 20 mg capsule,delayed 20 mg PO DAILY@0630 11/09/20 10/24/24 10/22/24 History release furosemide 20 mg tablet 20 mg PO DAILY 08/19/22 10/24/2410/22/25 History omega 8-nkc-qad-fish oil 1,000 mg 1 cap PO DAILY 12/09/22 10/24/24 10/22/24 History (120 mg-180 mg) capsule (Fish Oil) oxycodone 20 mg tablet,crush 20 mg PO DAILY@1500 12/09/22 10/24/24 10/22/24 History resistant,extended release 12 hr (OxyContin) clopidogrel 75 mg tablet 75 mg PO DAILY 03/26/23 10/24/24 10/22/24 History simvastatin 40 mg tablet 40 mg PO BEDTIME 03/26/23 10/24/24 10/22/24 History losartan 50 mg tablet 50 mg PO DAILY 11/15/23 10/24/24 10/22/24 History ondansetron 4 mg disintegrating 4 mg PO Q8H PRN Nausea And Vomiting 11/15/23 10/24/24 Unknown History tablet fluticasone fur. 100 mcg-umeclid 1 ea inhalation DAILY 10/24/24 10/24/24 10/22/24 History 62.5 mcg-vilant 25 mcg inhalat.powder (Trelegy Ellipta) Physical Exam Vital Signs: Vital Signs: Last Vital Signs Temp 99.4 F 10/26/24 12:00 Pulse 100 10/26/24 12:00 Resp 20 10/26/24 12:00 BP 121/53 L 10/26/24 12:00 Pulse Ox 97 10/26/24 12:00 O2 Del Method Nasal Cannula 10/26/24 12:00 O2 Flow Rate 4 10/26/24 12:00 Oxygen Flow Rate 2 10/24/24 04:22 BMI result Body Mass Index 34.2 Results Labs 10/26/24 06:02 10/26/24 06:02 Labs: Short CBC 10/26/24 Range/Units 06:02 WBC 6.0 (4.8-10.8) X10*3/uL Hgb 13.1 L (14.0-18.0) g/dl Hct 40.9 L (42.0-52.0) % Plt Count 159 L (160-400) X10*3/uL BMP 10/26/24 06:02 Sodium 145 Potassium 3.9 Chloride 112 H Carbon Dioxide 26 BUN 23 H Creatinine 0.96 Calcium 8.9 Liver Function 10/26/24 Range/Units 06:02 Total Bilirubin 0.6 (0.0-1.0) mg/dL AST 16 (5-37) U/L ALT 11 (0-40) U/L Alkaline Phosphatase 188 H (39-117) U/L Albumin 3.8 (3.5-5.0) g/dL His MRI of brain did revealed multiple small area of restricted diffusion and left frontal lobe in border zone territory, in addition to chronic left parieto-occipital embolic looking infarction. CTA findings were reviewed. Microbiology Microbiology Results: Microbiology 10/24/24 Unknown Urine Catheterized - Alvarez Catheter Urine Culture - Final Coag negative Staphylococcus 10/24/24 05:00 Blood - Venous Blood Culture - Preliminary No growth after 48 hours. 10/24/24 04:50 Blood - Venous Blood Culture - Preliminary No growth after 48 hours. Assessment and Plan (1) Cerebral infarction: Qualifiers: Cerebral infarction mechanism: other mechanism Qualified Code(s): I63.89 - Other cerebral infarction Status: Acute I was asked to review his MRI. His MRI did reveal multiple small areas of restricted diffusion in left frontal lobe border zone area. This likely happened because of hypotension with occluded left carotid system. Mainstay of management is maintaining relatively high normal blood pressure and for now I would recommend aspirin clopidogrel combination. Procedures Date of Service Date of Service: 10/26/24
[2024-10-26] MEDS: oxyCODONE HCl ER 10 MG TAB.ER.12H 20 MG PO (15:12)
[2024-10-26 16:16] LABS: Glucose, Whole Blood 120 mg/dL (60-115)
--- NOTE | 2024-10-26 17:34 | HO.PM.IMPN ---
Subjective Subjective Date of Service: 10/26/24 Interval History: Brighter today. No acute issues overnight Review of Systems Unable to obtain Physical Exam Vital Signs: Vital Signs: Last Vital Signs Temp 99.5 F 10/26/24 15:40 Pulse 80 10/26/24 15:40 Resp 18 10/26/24 15:40 BP 116/56 L 10/26/24 15:40 Pulse Ox 94 10/26/24 15:40 O2 Del Method Nasal Cannula 10/26/24 15:40 O2 Flow Rate 4 10/26/24 15:40 Oxygen Flow Rate 2 10/24/24 04:22 BMI result Body Mass Index 34.2 Const: Other: Awake alert expressive aphasia Resp: Other: Scant crackles right base otherwise clear Cardio: Other: No S4; positive S1-S2; no S3 murmurs rubs or gallops GI: Other: Soft nontender nondistended normoactive bowel sounds Neuro: Other: Dense right hemiparesis; expressive aphasia Extrem: Other: No edema bilaterally Objective Data Active Medications Acetaminophen (Acetaminophen 325 Mg Tablet) 975 mg PO Q6H PRN PRN Reason: Pain, Mild 1-3,fever,headache Allopurinol (Allopurinol 100 Mg Tablet) 200 mg PO DAILY [facility] Last Admin: 10/26/24 09:08 Dose: 200 mg Documented By: DERICK Aspirin (Aspirin Enteric Coated 81 Mg Tablet.) 81 mg PO DAILY [facility] Last Admin: 10/26/24 09:09 Dose: 81 mg Documented By: DERICK Atorvastatin Calcium (Atorvastatin Calcium 80 Mg Tablet) 80 mg PO DAILY [facility] Last Admin: 10/26/24 09:06 Dose: 80 mg Documented By: DERICK Calcium Carbonate (Calcium Carbonate 750 Mg Tab.Chew) 750 mg PO Q4H PRN PRN Reason: Heartburn Carisoprodol (Carisoprodol 350 Mg Tablet) 700 mg PO TID [facility] Last Admin: 10/26/24 15:11 Dose: 700 mg Documented By: DERICK Carvedilol (Carvedilol 6.25 Mg Tablet) 6.25 mg PO BID [facility]; Protocol Last Admin: 10/26/24 09:08 Dose: 6.25 mg Documented By: DERICK Ceftriaxone Sodium (Ceftriaxone Sodium 1 Gm Vial) 1 gm IVPUSH Q24H [facility] Last Admin: 10/26/24 06:21 Dose: 1 gm Documented By: SANDRA-JOZEB Clopidogrel Bisulfate (Clopidogrel Bisulfate 75 Mg Tablet) 75 mg PO DAILY [facility] Last Admin: 10/26/24 09:09 Dose: 75 mg Documented By: DERICK Dextrose (Dextrose 50 % 25 Gm/50 Ml Syringe) 25 gm IVPUSH Q15M PRN; Protocol PRN Reason: per Hypoglycemia Standing Ord. Fluticasone/Umeclidinium/Vilanterol (Fluticasone/Umeclidinium/Vilanterol 100/62.5/ Blst.W.Dev) 1 puff INHALE RDAILY [facility] Last Admin: 10/26/24 08:58 Dose: 1 puff Documented By: KEMAR Furosemide (Furosemide 20 Mg Tablet) 20 mg PO DAILY [facility]; Protocol Last Admin: 10/26/24 09:09 Dose: 20 mg Documented By: DERICK Glucose (Glucose Gel 15 Gm Gel..Gram.) 15 gm PO Q15M PRN; Protocol PRN Reason: per Hypoglycemia Standing Ord. Heparin Sodium (Porcine) (Heparin Sodium,Porcine 5,000 Unit/Ml Vial) 5,000 unit SUBCUT Q12H [facility] Last Admin: 10/26/24 09:13 Dose: 5,000 unit Documented By: DERICK Doxycycline Hyclate 100 mg/ (Sodium Chloride) 250 mls @ 166.67 mls/hr IV Q12H [facility] Last Infusion: 10/26/24 11:10 Dose: Infused Documented By: RICCIAV Insulin Human Lispro (Insulin Lispro 100 Unit/Ml 3 Ml Vial) 0 unit SUBCUT QIDACHS [facility]; Protocol Last Admin: 10/26/24 16:18 Dose: Not Given Documented By: DERICK Non-Admin Reason: No Insulin Coverage Magnesium Hydroxide (Milk Of Magnesia 30 Ml Oral.Susp) 30 ml PO DAILY PRN PRN Reason: Constipation Last Admin: 10/26/24 11:43 Dose: 30 ml Documented By: DERICK Melatonin (Melatonin 3 Mg Tablet) 6 mg PO BEDTIME PRN PRN Reason: Insomnia Oxycodone HCl (Oxycodone Hcl Immed Release 5 Mg Tablet) 5 mg PO Q6H PRN PRN Reason: Pain, Moderate(Pain Scale 4-6) Last Admin: 10/24/24 15:28 Dose: 5 mg Documented By: JULIANNLHERMES Oxycodone HCl (Oxycodone Hcl Er 10 Mg Tab.Er.12h) 20 mg PO DAILY@1500 [facility] Last Admin: 10/26/24 15:12 Dose: 20 mg Documented By: FIGDIAN Oxycodone HCl (Oxycodone Hcl Er 10 Mg Tab.Er.12h) 30 mg PO BID [facility] Last Admin: 10/26/24 09:10 Dose: 30 mg Documented By: PILARDILEON Pantoprazole Sodium (Pantoprazole Sodium 20 Mg Tablet.Dr) 20 mg PO DAILY@0630 [facility] Last Admin: 10/26/24 05:15 Dose: Not Given Documented By: N-JOZEB Non-Admin Reason: cannot crush Sodium Chloride (0.9 % Sodium Chloride Flush 3 Ml Syringe) 3 ml IVFLUSH QSHIFT [facility] Last Admin: 10/26/24 16:18 Dose: 3 ml Documented By: DERICK Labs 10/26/24 06:02 10/26/24 06:02 Labs: Laboratory Results - last 24 hr 10/25/24 10/26/24 10/26/24 20:52 06:02 07:29 MCV 97.1 MCH 31.1 MCHC 32.0 RDW 14.6 Plt Count 159 L MPV 10.9 Immature Gran % (Auto) 0.5 H Neut % (Auto) 58.5 Lymph % (Auto) 17.3 L King % (Auto) 13.3 H Eos % (Auto) 10.1 H Baso % (Auto) 0.3 Lymph # (Auto) 1.0 L King # (Auto) 0.8 Eos # (Auto) 0.6 H Baso # (Auto) 0.0 Abs Immat Gran (auto) 0.03 Absolute Neuts (auto) 3.5 Absolute Nucleated RBC 0.000 Nucleated RBC % (auto) 0.0 Anion Gap 11 L Estim Creat Clear Calc 79.2 Estimated GFR > 60 POC Glucose 125 H 128 H Fasting Glucose 118 H Calcium 8.9 Total Bilirubin 0.6 AST 16 ALT 11 Alkaline Phosphatase 188 H Total Protein 6.3 L Albumin 3.8 10/26/24 10/26/24 11:21 16:12 MCV MCH MCHC RDW Plt Count MPV Immature Gran % (Auto) Neut % (Auto) Lymph % (Auto) King % (Auto) Eos % (Auto) Baso % (Auto) Lymph # (Auto) King # (Auto) Eos # (Auto) Baso # (Auto) Abs Immat Gran (auto) Absolute Neuts (auto) Absolute Nucleated RBC Nucleated RBC % (auto) Anion Gap Estim Creat Clear Calc Estimated GFR POC Glucose 178 H 120 H Fasting Glucose Calcium Total Bilirubin AST ALT Alkaline Phosphatase Total Protein Albumin Microbiology Microbiology Results: Microbiology 10/24/24 Unknown Urine Culture - Final Urine Catheterized - Alvarez Catheter Coag negative Staphylococcus 10/24/24 05:00 Blood Culture - Preliminary Blood - Venous No growth after 48 hours. 10/24/24 04:50 Blood Culture - Preliminary Blood - Venous No growth after 48 hours. 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 In the ED the patient was found to have a urinary tract infection, no sepsis. Head CT negative. CTA head and neck with left ICA occlusion, chronic. His case was discussed with in-house Neurology, Dr. Nunn, as well as [facility] neuro lap runner, Dr. Brar, who both agreed no intervention appropriate at this time, mechanical thrombectomies not indicated, nor tNK. 1. New CVA in backdrop of known hypotension likely secondary to acute infection -at neurology's recommendation we will DC losartan to allow patient's blood pressure to run slightly elevated - aspirin/high dose statin - PT/OT/speech evaluation.... Acute rehab recommended - NDD2 diet 2.Acute urinary tract infection - ceftriaxone (3) - divalent normalized - monitor CBC and BMP -remove Alvarez/voiding trial 3.Acute on chronic respiratory failure with hypoxia secondary to pneumonia - ceftriaxone/doxycycline (3) -titrate O2 to maintain sats greater or equal to 92% - monitor CBC and BMP 4.DM II - hold glipizide - lispro correctinal scale -adjust as indicated 5.Chronic HFpEF, no acute exacerbation - stable and well compensated Full code Heparin Patient will require ongoing hospitalization for new CVA in backdrop of acute UTI and pneumonia. Requires IV antibiotics and acute rehab placement Quality Stroke Does the patient have a stroke diagnosis?: Yes Reason for No Anti-thrombotic by Day Two: Drug treatment not indicated VTE Prior VTE?: No VTE Risk Level:: Medical - moderate - high VTE Device Contraindication: Treatment Not Indicated VTE Drug Contraindication: N/A - Med Ordered
[2024-10-26 20:04] LABS: Glucose, Whole Blood 159 mg/dL (60-115)
[2024-10-27] VITALS (7 sets, daily range): BP systolic 103–155; BP diastolic 53–80; PULSE 75–93; RESP 14–20; TEMP 36.5–36.9; O2SAT 93–97
[2024-10-27] MEDS: Fluticasone/Umeclidinium/Vilanterol 100/62.5/25 BLST.W.DEV 1 PUFF INHALE (07:56)
[2024-10-27 08:04] LABS: Glucose, Whole Blood 140 mg/dL (60-115)
[2024-10-27] MEDS: oxyCODONE HCl Immed Release 5 MG TABLET PO ×2 (08:14→14:12)
[2024-10-27] MEDS: oxyCODONE HCl ER 10 MG TAB.ER.12H 30 MG PO ×2 (08:14→20:11)
[2024-10-27] MEDS: Aspirin Enteric Coated 81 MG TABLET.DR PO (08:15)
--- NOTE | 2024-10-27 11:42 | MHC.CLN ---
NUTRITION CONSULT PATIENT WITH DX DM AND ELEVATED POC GLUCOSE. CHANGED DIET TO DIABETIC 2000 KCALS.
[2024-10-27 11:55] LABS: Glucose, Whole Blood 209 mg/dL (60-115)
--- NOTE | 2024-10-27 13:07 | HO.PM.IMPN ---
Subjective Subjective Date of Service: 10/27/24 Interval History: Continues to improve. Successful removal of Alvarez/voiding trial Review of Systems Unable to obtain Physical Exam Vital Signs: Vital Signs: Last Vital Signs Temp 98.0 F 10/27/24 11:46 Pulse 78 10/27/24 11:46 Resp 20 10/27/24 11:46 BP 103/53 L 10/27/24 11:46 Pulse Ox 94 10/27/24 11:46 O2 Del Method Nasal Cannula 10/27/24 11:46 O2 Flow Rate 3 10/27/24 11:46 Oxygen Flow Rate 2 10/24/24 04:22 BMI result Body Mass Index 34.2 Const: Other: Awake alert expressive aphasia Resp: Other: Scant crackles right base otherwise clear Cardio: Other: No S4; positive S1-S2; no S3 murmurs rubs or gallops GI: Other: Soft nontender nondistended normoactive bowel sounds Neuro: Other: Dense right hemiparesis; expressive aphasia Extrem: Other: No edema bilaterally Objective Data Active Medications Acetaminophen (Acetaminophen 325 Mg Tablet) 975 mg PO Q6H PRN PRN Reason: Pain, Mild 1-3,fever,headache Allopurinol (Allopurinol 100 Mg Tablet) 200 mg PO DAILY [facility] Last Admin: 10/27/24 08:15 Dose: 200 mg Documented By: JOSE FRANCISCO Aspirin (Aspirin Enteric Coated 81 Mg Tablet.) 81 mg PO DAILY [facility] Last Admin: 10/27/24 08:15 Dose: 81 mg Documented By: JOSE FRANCISCO Atorvastatin Calcium (Atorvastatin Calcium 80 Mg Tablet) 80 mg PO DAILY [facility] Last Admin: 10/27/24 08:15 Dose: 80 mg Documented By: JOSE FRANCISCO Calcium Carbonate (Calcium Carbonate 750 Mg Tab.Chew) 750 mg PO Q4H PRN PRN Reason: Heartburn Carisoprodol (Carisoprodol 350 Mg Tablet) 700 mg PO TID [facility] Last Admin: 10/27/24 08:14 Dose: 700 mg Documented By: JOSE FRANCISCO Carvedilol (Carvedilol 6.25 Mg Tablet) 6.25 mg PO BID [facility]; Protocol Last Admin: 10/27/24 08:14 Dose: 6.25 mg Documented By: JOSE FRANCISCO Ceftriaxone Sodium (Ceftriaxone Sodium 1 Gm Vial) 1 gm IVPUSH Q24H [facility] Last Admin: 10/27/24 05:49 Dose: 1 gm Documented By: CAROLINE Clopidogrel Bisulfate (Clopidogrel Bisulfate 75 Mg Tablet) 75 mg PO DAILY [facility] Last Admin: 10/27/24 08:15 Dose: 75 mg Documented By: JOSE FRANCISCO Dextrose (Dextrose 50 % 25 Gm/50 Ml Syringe) 25 gm IVPUSH Q15M PRN; Protocol PRN Reason: per Hypoglycemia Standing Ord. Fluticasone/Umeclidinium/Vilanterol (Fluticasone/Umeclidinium/Vilanterol 100/62.5/25 Blst.W.Dev) 1 puff INHALE RDAILY [facility] Last Admin: 10/27/24 07:56 Dose: 1 puff Documented By: CHRISTY Furosemide (Furosemide 20 Mg Tablet) 20 mg PO DAILY [facility]; Protocol Last Admin: 10/27/24 08:15 Dose: 20 mg Documented By: JOSE FRANCISCO Glucose (Glucose Gel 15 Gm Gel..Gram.) 15 gm PO Q15M PRN; Protocol PRN Reason: per Hypoglycemia Standing Ord. Heparin Sodium (Porcine) (Heparin Sodium,Porcine 5,000 Unit/Ml Vial) 5,000 unit SUBCUT Q12H [facility] Last Admin: 10/27/24 08:14 Dose: 5,000 unit Documented By: JOSE FRANCISCO Doxycycline Hyclate 100 mg/ (Sodium Chloride) 250 mls @ 166.67 mls/hr IV Q12H [facility] Last Infusion: 10/27/24 09:45 Dose: Infused Documented By: KARIME Insulin Human Lispro (Insulin Lispro 100 Unit/Ml 3 Ml Vial) 0 unit SUBCUT QIDACHS [facility]; Protocol Last Admin: 10/27/24 12:10 Dose: 4 unit Documented By: KARIME Magnesium Hydroxide (Milk Of Magnesia 30 Ml Oral.Susp) 30 ml PO DAILY PRN PRN Reason: Constipation Last Admin: 10/26/24 11:43 Dose: 30 ml Documented By: DERICK Melatonin (Melatonin 3 Mg Tablet) 6 mg PO BEDTIME PRN PRN Reason: Insomnia Oxycodone HCl (Oxycodone Hcl Immed Release 5 Mg Tablet) 5 mg PO Q6H PRN PRN Reason: Pain, Moderate(Pain Scale 4-6) Last Admin: 10/27/24 08:14 Dose: 5 mg Documented By: JOSE FRANCISCO Oxycodone HCl (Oxycodone Hcl Er 10 Mg Tab.Er.12h) 20 mg PO DAILY@1500 [facility] Last Admin: 10/26/24 15:12 Dose: 20 mg Documented By: FIGDIAN Oxycodone HCl (Oxycodone Hcl Er 10 Mg Tab.Er.12h) 30 mg PO BID [facility] Last Admin: 10/27/24 08:14 Dose: 30 mg Documented By: JOSE FRANCISCO Pantoprazole Sodium (Pantoprazole Sodium 20 Mg Tablet.Dr) 20 mg PO DAILY@0630 [facility] Last Admin: 10/27/24 05:48 Dose: 20 mg Documented By: CAROLINE Sodium Chloride (0.9 % Sodium Chloride Flush 3 Ml Syringe) 3 ml IVFLUSH QSHIFT [facility] Last Admin: 10/27/24 08:16 Dose: Not Given Documented By: JOSE FRANCISCO Non-Admin Reason: IV Running Labs 10/26/24 06:02 10/26/24 06:02 Labs: Laboratory Results - last 24 hr 10/26/24 10/26/24 10/27/24 16:12 19:52 07:53 POC Glucose 120 H 159 H 140 H 10/27/24 11:45 POC Glucose 209 H Microbiology Microbiology Results: Microbiology 10/24/24 Unknown Urine Culture - Final Urine Catheterized - Alvarez Catheter Coag negative Staphylococcus Assessment and Plan (1) Acute CVA (cerebrovascular accident): Status: Acute (2) UTI (urinary tract infection): Status: Acute (3) Diabetes mellitus: Status: Acute Plan Patient is a 79-year-old male with a past medical history significant for history TIA, 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 In the ED the patient was found to have a urinary tract infection, no sepsis. Head CT negative. CTA head and neck with left ICA occlusion, chronic. His case was discussed with in-house Neurology, Dr. Nunn, as well as [facility] neuro seaport planning manager, Dr. Brar, who both agreed no intervention appropriate at this time, mechanical thrombectomies not indicated, nor tNK. 1. New CVA in backdrop of known hypotension likely secondary to acute infection -isolated low BP. We will recheck and decrease carvedilol dose if indicated - aspirin/high dose statin - PT/OT/speech evaluation.... Acute rehab recommended - NDD2 diet 2.Acute urinary tract infection - ceftriaxone (4) - divalent normalized - monitor CBC and BMP -remove Alvarez/voiding trial 3.Acute on chronic respiratory failure with hypoxia secondary to pneumonia - ceftriaxone/doxycycline (4) -titrate O2 to maintain sats greater or equal to 92% - monitor CBC and BMP 4.DM II - hold glipizide - lispro correctinal scale -adjust as indicated 5.Chronic HFpEF, no acute exacerbation - stable and well compensated Full code Heparin Patient will require ongoing hospitalization for new CVA in backdrop of acute UTI and pneumonia. Requires IV antibiotics; awaiting acute rehab placement Quality Stroke Does the patient have a stroke diagnosis?: Yes Reason for No Anti-thrombotic by Day Two: Drug treatment not indicated VTE Prior VTE?: No VTE Risk Level:: Medical - moderate - high VTE Device Contraindication: Treatment Not Indicated VTE Drug Contraindication: N/A - Med Ordered
--- NOTE | 2024-10-27 13:49 | MHC.SLORD ---
Speech Language Pathology Order Status: Attempted to see patient at lunch, unfortunately arrived after its conclusion. Per Patient's , Patient is tolerating regular diet with no difficulty. Recommend continue on least restrictuve diet (Regular/Thin liquids) at next level of care.
[2024-10-27] MEDS: oxyCODONE HCl ER 10 MG TAB.ER.12H 20 MG PO (14:12)
[2024-10-27] MEDS: Milk of Magnesia 30 ML ORAL.SUSP PO (14:12)
[2024-10-27] MEDS: 0.9 % Sodium Chloride Flush 3 ML SYRINGE IVFLUSH (14:13)
[2024-10-27 16:25] LABS: Glucose, Whole Blood 91 mg/dL (60-115)
[2024-10-27 19:46] LABS: Glucose, Whole Blood 117 mg/dL (60-115)
[2024-10-28 03:36] VITALS: BP 144/67; PULSE 68; RESP 18; TEMP 36.6; O2SAT 97
[2024-10-28 06:49] LABS: MANUAL DIFF FLAG NO
[2024-10-28 07:19] LABS: Hematocrit 39.2 % (42.0-52.0); Hemoglobin 12.9 g/dl (14.0-18.0); Imm Gran Abs Auto 0.02 X10*3/uL (0.00-0.03); Imm Gran Pct Auto 0.4 % (0.0-0.4); Lymphocytes Absolute Auto 1.0 X10*3/uL (1.2-4.9); Mean Corpuscular HGB Conc 32.9 g/dl (31.0-36.0); Mean Corpuscular Hemoglobin 31.7 pg (27.0-33.0); Mean Corpuscular Volume 96.3 fL (80.0-98.0); NRBC Abs Auto 0.000 X10*3/uL (0.0-0.012); NRBC Pct Auto 0.0 /100WBC (0.0-0.2); Platelet Count 164 X10*3/uL (160-400); Red Blood Count 4.07 X10*6/uL (4.60-5.80); White Blood Count 4.8 X10*3/uL (4.8-10.8)
[2024-10-28 07:26] LABS: Alanine Aminotransferase 12 U/L (0-40); Albumin Level 3.7 g/dL (3.5-5.0); Alkaline Phosphatase 186 U/L (39-117); Anion Gap 12 (12-20); Aspartate Amino Transferase 18 U/L (5-37); Blood Urea Nitrogen 28 mg/dL (9-16); Calcium 9.0 mg/dL (8.4-10.2); Carbon Dioxide 28 mmol/L (22-29); Chloride 109 mmol/L (96-108); Creatinine Clr Calc Pharmacy 73.9; Estimated Glomerular Filt Rate > 60; Potassium 4.3 mmol/L (3.3-5.1); Sodium 145 mmol/L (135-145); Total Protein 6.2 g/dL (6.5-8.0)
[2024-10-28] MEDS: Fluticasone/Umeclidinium/Vilanterol 100/62.5/25 BLST.W.DEV 1 PUFF INHALE (07:41)
[2024-10-28 07:42] VITALS: BP 162/73; PULSE 74; RESP 20; TEMP 36.8; O2SAT 95
[2024-10-28 07:45] VITALS: PULSE 76; RESP 16; O2SAT 91
[2024-10-28 07:47] LABS: Glucose, Whole Blood 138 mg/dL (60-115)
[2024-10-28] MEDS: oxyCODONE HCl ER 10 MG TAB.ER.12H 30 MG PO (08:28)
[2024-10-28] MEDS: Aspirin Enteric Coated 81 MG TABLET.DR PO (08:28)
[2024-10-28] MEDS: oxyCODONE HCl Immed Release 5 MG TABLET PO (08:28)
--- NOTE | 2024-10-28 09:27 | MHC.CM.PN ---
IMM 10/28/24 Patient is discharged today to [facility]. 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
--- NOTE | 2024-10-28 10:46 | PM.DS ---
DS: Providers Provider Date of Service: 10/28/24 Date of admission: 10/24/24 06:08 Date of discharge: 10/28/24 Primary care physician: Unknown Physician Consults: 10/24/24 06:15 Consult to Neurology Routine Consulting Provider: [facility] Reason for consultation: CVA, R hemiparesis Has provider been notified: Yes DS: Diagnosis Discharge Diagnosis (1) Acute CVA (cerebrovascular accident): Status: Acute (2) UTI (urinary tract infection): Status: Acute (3) Diabetes mellitus: Status: Acute DS: Summary Hospital Course Hospital Course: 79-year-old male with a past medical history significant for history TIA, 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 The patient has had a hard time achieving words. His last known well time was 2100 last night. the patient is unable to give a history at this time and has a hard time following commands. In the ED the patient was found to have a urinary tract infection, no sepsis. Head CT negative. CTA head and neck with left ICA occlusion, chronic. His case was discussed with in-house Neurology, Dr. Nunn, as well as [facility] neuro cook pressure, Dr. Brar, who both agreed no intervention appropriate at this time, mechanical thrombectomies not indicated, nor tNK. He was also found to be hypoxic with pneumonia. Hospital Course Admitted to telemetry where monitor failed to demonstrate any acute dysrhythmias. On admission, patient had a mild right hemiparesis with expressive aphasia. Was seen by Neurology in consultation who reviewed MRI. Neurology's impression;MRI did reveal multiple small areas of restricted diffusion in left frontal lobe border zone area. This likely happened because of hypotension with occluded left carotid system. Mainstay of management is maintaining relatively high normal blood pressure and for now I would recommend aspirin clopidogrel combination. Seen in consultation by speech and modified diet. Given recommendations, losartan was DC. Over the next 24 hours his improvement was quite significant. Seen again by speech who upgraded his diet to regular with thin liquids. On the day of discharge, his speech was clear and he was able to move right arm. Right hand shake 4 to 5/5. Able to scratch head with right hand. Chest x-ray was read as right lower lobe infiltrate for which he was treated with ceftriaxone and doxycycline. Initially thought to have UTI, but had [id number] multiple organisms; blood cultures have remained negative. At this point in time; he is medically stable be transferred to acute rehab as recommended by Physical therapy. Time Attestation Discharge Coordination Time (in mins): 35 Quality: Safe Use of Opioids Does Pt have an Active Cancer Diagnosis on the Problem List?: No Quality: Stroke Does the patient have a stroke diagnosis?: Yes Reason for No Anti-thrombotic at DC: N/A - Med Ordered Reason for No Anticoagulant at DC: Drug treatment not indicated Reason Not Initiating IV-Tpa: Drug treatment not indicated Reason for No Anti-thrombotic by Day Two: N/A - Med Ordered Reason for No Statin at DC: N/A - Med Ordered Physical Exam Vital Signs: Vital Signs: Last Vital Signs Temp 98.2 F 10/28/24 07:42 Pulse 76 10/28/24 07:45 Resp 16 10/28/24 07:45 BP 162/73 H 10/28/24 07:42 Pulse Ox 95 10/28/24 07:42 O2 Del Method Nasal Cannula 10/28/24 07:42 O2 Flow Rate 2 10/28/24 07:42 Oxygen Flow Rate 2 10/24/24 04:22 BMI result Body Mass Index 34.2 Const: Other: Awake alert expressive aphasia Resp: Other: Scant crackles right base otherwise clear Cardio: Other: No S4; positive S1-S2; no S3 murmurs rubs or gallops GI: Other: Soft nontender nondistended normoactive bowel sounds Neuro: Other: Cranial nerves 2-12 grossly intact as tested is 5/5 left extremities 4+. Speech clear Extrem: Other: No edema bilaterally DS: Data Data Completed and Pending Completed studies during hospitalization [Text1]: Procedures Dilation of Right Common Carotid Artery, Open Approach (12/14/22) Extirpation of Matter from Right Common Carotid Artery, Open Approach (12/14/22) Introduction of Other Thrombolytic into Peripheral Vein, Percutaneous Approach (11/08/22) Introduction of Vasopressor into Peripheral Vein, Percutaneous Approach (12/14/22) Supplement Right Common Carotid Artery with Synthetic Substitute, Open Approach (08/21/23) Labs on day of discharge: Laboratory Results - last 24 hr 10/27/24 10/27/24 10/27/24 11:45 16:12 19:42 WBC RBC Hgb Hct MCV MCH MCHC RDW Plt Count MPV Immature Gran % (Auto) Neut % (Auto) Lymph % (Auto) Traill % (Auto) Eos % (Auto) Baso % (Auto) Lymph # (Auto) Traill # (Auto) Eos # (Auto) Baso # (Auto) Abs Immat Gran (auto) Absolute Neuts (auto) Absolute Nucleated RBC Nucleated RBC % (auto) Sodium Potassium Chloride Carbon Dioxide Anion Gap BUN Creatinine Estim Creat Clear Calc Estimated GFR POC Glucose 209 H 91 117 H Fasting Glucose Calcium Total Bilirubin AST ALT Alkaline Phosphatase Total Protein Albumin 10/28/24 10/28/24 06:44 07:41 WBC 4.8 RBC 4.07 L Hgb 12.9 L Hct 39.2 L MCV 96.3 MCH 31.7 MCHC 32.9 RDW 14.7 Plt Count 164 MPV 10.3 Immature Gran % (Auto) 0.4 Neut % (Auto) 56.8 Lymph % (Auto) 20.2 Traill % (Auto) 10.6 Eos % (Auto) 11.4 H Baso % (Auto) 0.6 Lymph # (Auto) 1.0 L Traill # (Auto) 0.5 Eos # (Auto) 0.6 H Baso # (Auto) 0.0 Abs Immat Gran (auto) 0.02 Absolute Neuts (auto) 2.7 Absolute Nucleated RBC 0.000 Nucleated RBC % (auto) 0.0 Sodium 145 Potassium 4.3 Chloride 109 H Carbon Dioxide 28 Anion Gap 12 BUN 28 H Creatinine 1.03 Estim Creat Clear Calc 73.9 Estimated GFR > 60 POC Glucose 138 H Fasting Glucose 134 H Calcium 9.0 Total Bilirubin 0.4 AST 18 ALT 12 Alkaline Phosphatase 186 H Total Protein 6.2 L Albumin 3.7 Preliminary micro results at discharge 10/24/24 05:00 Blood Culture - Preliminary Blood - Venous No growth after 48 hours. 10/24/24 04:50 Blood Culture - Preliminary Blood - Venous No growth after 48 hours. Discharge Plan Discharge Anticipated Discharge Date/Time: 10/28/24 10:28 Patient Disposition: Xfer Inpatient Rehab Fac Discharge Diagnosis: Acute left CVA Referrals: [facility] [Other] - 1 Week Referral Note: PCP DR HINTON retired. Patient is seen at the [facility]. [facility] [Outside] - 1 Week Discharge Medications: New atorvastatin 80 mg Tablet 80 mg PO DAILY Qty: 30 0RF pantoprazole 20 mg Tablet,Delayed Release (Dr/Ec) 20 mg PO DAILY@0630 Qty: 30 0RF cefuroxime axetil 250 mg Tablet 250 mg PO Q12H Qty: 14 0RF doxycycline monohydrate 100 mg Capsule 100 mg PO Q12H Qty: 14 0RF Continued ipratropium-albuterol 0.5 mg-3 mg(2.5 mg base)/3 mL solution for nebulization 3 ml inhalation Q6H PRN (Reason: wheezing) Qty: 180 4RF carvedilol 6.25 mg tablet 6.25 mg PO BID Qty: 180 3RF Farxiga 10 mg tablet 10 mg PO DAILY 90 Days Qty: 90 3RF carisoprodol 350 mg tablet 700 mg PO TID allopurinol 100 mg tablet 200 mg PO DAILY omega 3-keh-ydu-fish oil [Fish Oil] 1,000 mg (120 mg-180 mg) Capsule 1 cap PO DAILY clopidogrel 75 mg tablet 75 mg PO DAILY Trelegy Ellipta 100-62.5-25 mcg blister with device 1 ea INHALATION DAILY oxycodone [OxyContin] 20 mg tablet,oral only,ext.rel.12 hr 20 mg PO DAILY@1500 Qty: 30 0RF oxycodone [OxyContin] 30 mg tablet,oral only,ext.rel.12 hr 30 mg PO BID Qty: 60 0RF aspirin 81 mg Tablet,Delayed Release (Dr/Ec) 81 mg PO DAILY Qty: 30 0RF furosemide 20 mg tablet 20 mg PO DAILY ondansetron 4 mg tablet,disintegrating 4 mg PO Q8H PRN (Reason: Nausea And Vomiting) Discontinued glipizide 2.5 mg tablet extended release 24hr 1 tab PO BID omeprazole 20 mg capsule,delayed release(DR/EC) 20 mg PO DAILY@0630 simvastatin 40 mg tablet 40 mg PO BEDTIME losartan 50 mg tablet 50 mg PO DAILY Discharge Orders: Discharge Order (Routine); Ordered 10/28/24 Ordered By: Butch Vega Diet: reg/thin liquids Activity on Discharge: As tolerated Stand Alone Forms: Patient Portal Discharge page Print Language: Trinidadian Care Plan Goals: Take all medicines as outlined on transfer summary. Patient was on listed oxycodone doses at home prior to hospitalization Health Concerns: Ceftin 250 mg p.o. b.i.d. x7 days along with doxycycline 100 mg b.i.d. x7 days to complete treatment for pneumonia and urinary tract infection. Plan of Treatment: As per receiving facility Assessment: See discharge summary
[2024-10-28 11:18] LABS: Glucose, Whole Blood 131 mg/dL (60-115)
[2024-10-28 11:41] VITALS: BP 105/57; PULSE 86; RESP 18; TEMP 36.5; O2SAT 93
[2024-10-28 14:39] VITALS: BP 128/62; PULSE 67; RESP 18; TEMP 36.4; O2SAT 97
[2024-10-28 14:40] LABS: Glucose, Whole Blood 133 mg/dL (60-115)
== END 2024-10-28 15:35 | DRG 64 ==
LOC: HO.ED 04:23 → HO.EDOVER 06:10 → HO.IMC 12:55
PROVIDERS: Hospitalist; Admitting Provider Physician Assistant; Emergency Provider Emergency Medicine; Visit Provider Hospitalist
DX: I63.9 Cerebral infarction, unspecified (principal); J18.9 Pneumonia, unspecified organism; J96.21 Acute and chronic respiratory failure with hypoxia; I13.0 Hypertensive heart and chronic kidney disease with heart failure and stage 1 through stage 4 chronic kidney disease, or unspecified chronic kidney disease; I50.32 Chronic diastolic (congestive) heart failure; I69.351 Hemiplegia and hemiparesis following cerebral infarction affecting right dominant side; N39.0 Urinary tract infection, site not specified; R47.01 Aphasia; N18.30 Chronic kidney disease, stage 3 unspecified; I95.9 Hypotension, unspecified; I65.22 Occlusion and stenosis of left carotid artery; R29.716 NIHSS score 16; Z71.3 Dietary counseling and surveillance; I44.7 Left bundle-branch block, unspecified; Z99.81 Dependence on supplemental oxygen; Z68.34 Body mass index [BMI] 34.0-34.9, adult; E11.22 Type 2 diabetes mellitus with diabetic chronic kidney disease; Z79.02 Long term (current) use of antithrombotics/antiplatelets; Z79.82 Long term (current) use of aspirin; Z79.899 Other long term (current) drug therapy
CPT/HCPCS: 36415; 70450; 70496; 70498; 70551; 71045; 80048; 80053; 80061; 81001; 82803; 82947; 83605; 84484; 85025; 85610; 85730; 87040; 87086; 87147; 92507; 93005; 93306; 97110; 97112; 97162; 97167; 97530; 97535; 99285; J0696; J1171; J1271; J1644; J3410; P9047; Q9957

== ENCOUNTER → 2024-10-24 03:55 | Outpatient (BNV) | payer MEDICARE, MEDICAID, SELFPAY | PROVIDERS: Admitting Provider Physician Assistant; Emergency Provider Emergency Medicine; Visit Provider Internal Medicine Cardiovascular Disease | DX: I34.81 Nonrheumatic mitral (valve) annulus calcification (principal); I51.89 Other ill-defined heart diseases; R94.31 Abnormal electrocardiogram [ECG] [EKG]; R00.0 Tachycardia, unspecified; I25.2 Old myocardial infarction | CPT/HCPCS: 93010; 93306 ==

== ENCOUNTER → 2024-10-24 03:55 | Outpatient (BNV) | payer MEDICARE, MEDICAID, SELFPAY | PROVIDERS: Emergency Provider Emergency Medicine; Visit Provider Radiology Diagnostic Radiology | DX: R47.89 Other speech disturbances (principal); I63.9 Cerebral infarction, unspecified; J84.9 Interstitial pulmonary disease, unspecified | CPT/HCPCS: 70551; 71045 ==

== ENCOUNTER → 2024-10-24 06:08 | Outpatient (BNV) | payer MEDICARE, MEDICAID, SELFPAY | PROVIDERS: Admitting Provider Physician Assistant; Emergency Provider Emergency Medicine; Visit Provider Psychiatry & Neurology Neurology | DX: R40.1 Stupor (principal); I63.9 Cerebral infarction, unspecified | CPT/HCPCS: 99222; 99231; 99232 ==

== ENCOUNTER → 2024-10-24 06:08 | Outpatient (BNV) | payer MEDICARE, MEDICAID, SELFPAY | PROVIDERS: Admitting Provider Physician Assistant; Emergency Provider Emergency Medicine; Visit Provider Hospitalist | DX: I63.9 Cerebral infarction, unspecified (principal); N39.0 Urinary tract infection, site not specified; E11.9 Type 2 diabetes mellitus without complications | CPT/HCPCS: 99223; 99232; 99239; 99499 ==

== ENCOUNTER 2024-11-06 13:31 | Inpatient (IN) | payer MEDICARE, MEDICAID, SELFPAY ==
--- NOTE | ~2024-11-06 | XR_ITS ---
EXAMINATION: XR CHEST CLINICAL INFORMATION: weakness COMPARISON: October 24, 2024 TECHNIQUE: Frontal view of the chest was obtained. FINDINGS: Mild bronchiectasis in streaky density is again noted in the medial basal right lower lobe. Again seen is prominent vessels in right suprahilar. Coarse interstitial markings are present diffusely. Mild to moderate degenerative changes are stable in the right shoulder. XR/XR chest 1V IMPRESSION: Improving right basilar density could represent improving pneumonia. Chronic changes with mild bronchiectasis in the medial basal right lower lobe. Electronically signed by: Raffi Finley MD 11/06/2024 02:33 PM EDT
--- NOTE | ~2024-11-06 | US_ITS ---
EXAMINATION: US TRIPLEX LOWER EXTREMITY, BILATERAL CLINICAL INFORMATION: Bilateral lower extremity edema. COMPARISON: None available. TECHNIQUE: Color-flow triplex imaging with spectral analysis and compression Doppler were performed on the bilateral lower extremities. FINDINGS: Respiratory variation, normal compression and augmented flow are noted throughout the bilateral lower extremities. The visualized common femoral vein, superficial femoral vein, profunda femoral vein, popliteal vein and midcalf peroneal and posterior tibial venous segments show no evidence of deep venous thrombosis bilaterally. There is no Baugh's cyst. US/US venous duplex LE BI IMPRESSION: No evidence of deep venous thrombosis involving the bilateral lower extremities. Electronically signed by: Brenden Lr MD 11/06/2024 03:58 PM EDT
--- NOTE | 2024-11-06 13:33 | ED_ITS ---
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 Patient states that he has only been home from the hospital / rehab for 2 days and continues to have weakness and now bilateral foot swelling. Patient denies any dizziness, lightheadedness, abdominal pain, nausea, vomiting, fever, chills, blurry vision, double vision, loss of vision, chest pain, difficulty breathing, shortness of breath, back pain, night sweats, pain with urination, increased urinary frequency, increased urinary urgency, blood in his urine or stool, syncope or a near syncopal episode, recent trauma or falls, bowel incontinence, bladder incontinence, or any other complaints at this time. Relieving factors: none Exacerbating factors: none Associated symptoms: weakness Treatments prior to arrival: none Related Data Home Medications ?Medication ?Instructions ?Recorded ?Confirmed allopurinol 100 mg tablet 200 mg PO DAILY 11/09/2005/20 carisoprodol 350 mg tablet 700 mg PO TID 11/09/2005/20 furosemide 20 mg tablet 20 mg PO DAILY 08/19/2205/20 omega 6-gmb-krc-fish oil 1,000 mg 1 cap PO DAILY 12/0910/24/24 (120 mg-180 mg) capsule (Fish Oil) clopidogrel 75 mg tablet 75 mg PO DAILY 03/26/2305/20 ondansetron 4 mg disintegrating 4 mg PO Q8H PRN Nausea And Vomiting 11/15/23 10/24/24 tablet fluticasone fur. 100 mcg-umeclid 1 ea inhalation DAILY 10/24/24 10/24/24 62.5 mcg-vilant 25 mcg inhalat.powder (Trelegy Ellipta) Previous Rx's ?Medication ?Instructions ?Recorded aspirin 81 mg tablet,delayed 81 mg PO DAILY #30 tabs 0 11/11/22 release ipratropium 0.5 mg-albuterol 3 mg 3 ml inhalation Q6H PRN wheezing 05/10/24 (2.5 mg base)/3 mL nebulization #180 mL soln carvedilol 6.25 mg tablet 6.25 mg PO BID #180 tabs dapagliflozin propanediol 10 mg 10 mg PO DAILY 90 days #90 tabs 10/09/24 tablet (Farxiga) atorvastatin 80 mg tablet 80 mg PO DAILY #30 tabs 0709/17 cefuroxime axetil 250 mg tablet 250 mg PO Q12H #14 tab s 10/28/24 doxycycline monohydrate 100 mg 100 mg PO Q12H #14 caps 10/28/24 capsule oxycodone 20 mg tablet,crush 20 mg PO DAILY@1500 pain #30 tabs 10/28/24 resistant,extended release 12 hr (OxyContin) oxycodone 30 mg tablet,crush 30 mg PO BID #60 tabs 09/17 resistant,extended release 12 hr (OxyContin) pantoprazole 20 mg tablet,delayed 20 mg PO DAILY@0630 #30 tabs 10/28/24 release Allergies Allergy/AdvReac Type Severity Reaction Status Date / Time adhesive Allergy Severe Rash Verified 11/06/24 13:37 morphine (MORPHINE) Allergy Severe NAUSEA Verified 11/06/24 13:37 codeine (CODEINE) Allergy Intermediate RASH Verified 11/06/24 13:37 ibuprofen (From MOTRIN) Allergy Unknown told to Verified 11/06/24 13:37 avoid due to kidneys Review of Systems 2 Constitutional: Constitutional: Reports no additional constitutional complaints, Denies chills, Denies fever(s), Denies night sweats and Reports weakness Eyes: Eyes: Reports no additional eye complaints, Denies blurry vision, Denies change in vision, Denies diplopia, Denies eye discharge, Denies loss of vision and Denies eye pain ENT: Denies dizziness Cardiovascular: Cardiovascular: Reports no additional cardiovascular complaints, Denies chest pain, Denies lightheadedness, Denies Loss of Consciousness and Denies dyspnea Respiratory: Respiratory: Reports no additional respiratory complaints and Denies dyspnea Gastrointestinal: Gastrointestinal: Reports no additional gastrointestinal complaints, Denies abdominal pain, Denies melena, Denies hematochezia, Denies change in bowel habits and Denies change in stool character Genitourinary: Genitourinary: Reports no additional male genitourinary complaints, Denies hematuria, Denies oliguria, Denies difficulty urinating, Denies dysuria, Denies urinary frequency, Denies urinary hesitancy, Denies urinary incontinence and Denies urinary urgency Musculoskeletal: Musculoskeletal: Reports no additional musculoskeletal complaints, Denies numbness and Denies tingling Comments: bilateral foot swelling Neurologic: Denies dizziness, Denies loss of vision, Denies numbness, Denies tingling and Reports weakness Psychiatric: Psychiatric: Reports no additional psychiatric complaints Endocrine: Endocrine: Reports no additional endocrine complaints Hematologic/Lymphatic: Hematologic/Lymphatic: Reports no additional hematologic/lymphatic complaints Allergic/Immunologic: Allergic/Immunologic: Reports no additional allergic/immunologic complaints [facility] Past Medical History Attestation statement: The following information was validated with the patient. Source: old records reviewed and nursing notes reviewed Medical History Acute CVA (cerebrovascular accident) Diabetes mellitus Type 2 CT (myocardial infarction) Carotid stenosis, right TIA (transient ischemic attack) Chronic renal failure (CRF), stage 3 (moderate) LBBB (left bundle branch block) Cardiomyopathy CHF (congestive heart failure) Chronic back pain Sleep apnea Oxygen dependent Lung nodule CVA (cerebral vascular accident) Surgical History History of lithotripsy History of vasectomy History of back surgery Family History Family History Father Cirrhosis Mother Myocardial infarction Enlarged heart Sister No problems noted. Sister No problems noted. Social History Social History Household Members: Unknown / Unable to assess Household Members Other:: pt said I dont Know Housing: Unknown / Unable to assess Housing Other:: pt said I dont Know Do you presently have visiting nurse or other home services: No Alcohol intake: former Year quit: 1979 Patient Tobacco Use Status: Never used Tobacco Tobacco use type: Cigarette Years Smoked: ~20 Quit 36 years ago e-Cigarette/Vaping Use: Never Used Substance Use Type: Marijuana Advance Directives: Yes Advance Directives on File: Yes Advance Directives Date on File: 03/27/23 Do you have a plan to hurt others: No Plan service: No Current occupational status: retired Physical Exam ED Vital Signs: Vital Signs - 24 hr 11/06/24 13:36 Temperature 98 F Pulse Rate 90 Respiratory Rate 22 H Blood Pressure 105/46 L Pulse Oximetry 91 L Oxygen Delivery Method Nasal Cannula BMI result Body Mass Index 30.4 Const General: cooperative, no acute distress, alert and awake Nutritional Appearance: well nourished Orientation/consciousness: patient oriented x3 HENMT Head: Yes normal to inspection and Yes atraumatic Ears: hearing grossly normal bilaterally and external ears normal General nose exam: Normal external nose present, no nasal discharge noted and no epistaxis Face and sinus: Yes normal facial exam, No abrasion and No laceration Mouth: Normal oral and palatal mucosa present, no drooling and no muffled voice Eyes General: appearance normal, both eyes and all related structures Periorbital: periorbital findings normal Eyelids: Yes eyelids normal Conjunctivae: conjunctivae normal Pupils: Equal, round and reactive pupils present EOM: EOMs intact bilaterally Neck Neck: Yes normal visual inspection, Yes full ROM and Yes no lymphadenopathy Resp Effort & Inspection: normal respiratory effort and able to speak in complete sentences Neuro General: patient oriented x3, moves all extremities and CN's II-XI intact bilaterally Cranial nerves: Yes Equal, round and reactive pupils present Cognition (Neuro): normal cognition Extrem Other: bilateral foot swelling - 2+ edema General: Yes full ROM and Yes capillary refill normal Psych Appearance: grossly normal Mental Status: mental status grossly normal Affect: normal affect Attitude: cooperative Thought process: Normal thought process present Thought content: Normal thought content present Insight: Good insight present (Psych) Medications Administered Generic Name Dose Route Start Last Admin Trade Name Freq PRN Reason Stop Dose Admin Sodium Chloride 1,000 mls @ 999 mls/hr 11/06/24 15:15 11/06/24 15:20 Ns IV 11/06/24 16:15 999 mls/hr .Q1H1M AISHWARYA Administration Discontinued Medications Generic Name Dose Route Start Last Admin Trade Name Freq PRN Reason Stop Dose Admin Methylprednisolone Sodium Succinate 60 mg 11/06/24 15:02 11/06/24 15:20 Methylprednisolone Sod Succ 125 Mg/2 Ml Vial IVPUSH 11/06/24 15:03 60 mg ONCE ONE Administration Medical Decision Making Medical Decision Making [facility] Narrative: Patient is a 79 year old assigned male at with a history of TIA, CVA in October of 2024 on ASA + Clopidogrel, 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 Patient's physical exam was as noted in the physical exam portion of this note. Patient's blood work showed a bumped CR of 1.42, BNP of 126, alk phos of 192. Patient's EKG was unremarkable. Patient's chest x-ray showed improving right basilar density but evidence of mild bronchiectasis in the right medial base. Patient was initially hypoxic at 89% on RA and placed on 2 liters of oxygen via nasal cannula which brought his saturation up to 91-93%. Patient's clinical presentation is most consistent with MARICHUY, continued weakness, and hypoxia. Patient's clinical presentation is not consistent with sepsis (@1500). Patient's bilateral lower extremity DVT study is pending. I spoke with the hospitalist team who agreed to admission. Patient was given IV fluids and solu-medrol. I explained my physical exam findings as well as all test results to the patient and the patient's family at the bed side. I answered all questions asked by the patient and the patient's family at the bed side. Patient and the patient's family at the bed side verbalized agreement and understanding with this treatment plan and admission. Differential Diagnosis Differential Diagnoses: The differential diagnosis associated with the presentation includes COPD exacerbation Bilateral lower leg swelling Physical deconditioning MARICHUY Admission/Observation Consideration of admission/observation: Escalation of care including admission/observation considered Patient admitted as noted in the MDM Rationale portion of this note. Consult Healthcare Provider Management of the patient was discussed with: Hospitalist (agreed to admission as noted in the MDM Rationale portion of this note. ) Lab Data [facility] Lab Attestation statement: I reviewed the patient's lab results. My interpretation of these results are in the MDM Rationale portion of this note. 11/06/24 14:15 11/06/24 14:15 Labs: Lab Results 11/06/24 11/06/24 Range/Units 14:15 14:23 WBC 6.5 (4.8-10.8) X10*3/uL RBC 4.36 L (4.60-5.80) X10*6/uL Hgb 13.5 L (14.0-18.0) g/dl Hct 42.2 (42.0-52.0) % MCV 96.8 (80.0-98.0) fL MCH 31.0 (27.0-33.0) pg MCHC 32.0 (31.0-36.0) g/dl RDW 14.6 (11.0-16.0) % Plt Count 215 D (160-400) X10*3/uL MPV 11.1 (9.4-12.4) fL Immature Gran % (Auto) 0.8 H (0.0-0.4) % Neut % (Auto) 60.7 (45-73) % Lymph % (Auto) 16.1 L (20-40) % Motley % (Auto) 10.9 (2-11) % Eos % (Auto) 10.9 H (0-4) % Baso % (Auto) 0.6 (0-2) % Lymph # (Auto) 1.1 L (1.2-4.9) X10*3/uL Motley # (Auto) 0.7 (0.1-1.2) X10*3/uL Eos # (Auto) 0.7 H (0.0-0.4) X10*3/uL Baso # (Auto) 0.0 (0.0-0.2) X10*3/uL Abs Immat Gran (auto) 0.05 H (0.00-0.03) X10*3/uL Absolute Neuts (auto) 4.0 (2.0-8.3) x10*3/uL Absolute Nucleated RBC 0.000 (0.0-0.012) X10*3/uL Nucleated RBC % (auto) 0.0 (0.0-0.2) /100WBC VBG pH 7.41 (7.32-7.43) VBG pCO2 49 mmHg VBG pO2 79 mmHg VBG HCO3 31 H (22-26) mmol/L VBG O2 Saturation 95.0 % VBG Base Excess 5.8 mmol/L Sodium 143 (135-145) mmol/L Potassium 4.4 (3.3-5.1) mmol/L Chloride 108 (96-108) mmol/L Carbon Dioxide 28 (22-29) mmol/L Anion Gap 11 L (12-20) BUN 28 H (9-16) mg/dL Creatinine 1.42 H (0.5-1.4) mg/dL Estim Creat Clear Calc 53.7 Estimated GFR 48 Random Glucose 122 H (60-115) mg/dL Calcium 9.0 (8.4-10.2) mg/dL Magnesium 2.3 (1.6-2.6) mg/dL Total Bilirubin 0.4 (0.0-1.0) mg/dL AST 22 (5-37) U/L ALT 11 (0-40) U/L Alkaline Phosphatase 192 H (39-117) U/L B-Natriuretic Peptide 126 H (<100) pg/mL Total Protein 6.4 L (6.5-8.0) g/dL Albumin 3.7 (3.5-5.0) g/dL Influenza Type A (PCR) NEGATIVE (Negative) Influenza Type B (PCR) NEGATIVE (Negative) RSV RNA Qual (PCR) NEGATIVE (Negative) SARS-CoV-2 RNA (RT-PCR) NEGATIVE (Negative) Independent Interpretation I performed an independent interpretation of an: EKG and Plain X-Ray Interpretation: My interpretation is in agreement with the radiologist's impression of this imaging study. L EXAMINATION: XR CHEST CLINICAL INFORMATION: weakness COMPARISON: October 24, 2024 TECHNIQUE: Frontal view of the chest was obtained. FINDINGS: Mild bronchiectasis in streaky density is again noted in the medial basal right lower lobe. Again seen is prominent vessels in right suprahilar. Coarse interstitial markings are present diffusely. Mild to moderate degenerative changes are stable in the right shoulder. XR/XR chest 1V IMPRESSION: Improving right basilar density could represent improving pneumonia. Chronic changes with mild bronchiectasis in the medial basal right lower lobe. Electronically signed by: Raffi Finley MD 11/06/2024 02:33 PM EDT Dictated By: Raffi Finley MD Signed By: Electronically signed by Raffi Finley MD 11/06/24 1433 I independently interpreted this EKG and am in agreement with the below findings: Vent. Rate: 87 BPM Atrial Rate: 87 BPM P-R Int: 184 ms QRS Dur: 96 ms QT Int: 402 ms P-R-T Axes: 51 7 72 degrees QTcB Int: 483 ms Normal sinus rhythm Low voltage QRS Septal infarct (cited on or before 12-Mar-2024) When compared with ECG of 24-Oct-2024 04:10, Nonspecific T wave abnormality no longer evident in Lateral leads DD/ 1345 Radiology Impression Discussion of test interpretation with radiology: I have reviewed the radiologist's reading. Independent Historian Clinical information obtained from an independent historian. History obtained from or confirmed by: EMS (EMS provided additional history and confirmed the history provided by the patient) and Other (patient's family at the bed side provided additional history and confirmed the history provided by the patient. ) Critical Care Time Critical Care Time Critical Care Time: Yes Total Critical Care Time: 33 Attestation: I spent 33 minutes of Critical Care Time with this patient. This does not include time spent on separately reported billable procedures. Discharge Plan Discharge Clinical Impression: Hypoxia, MARICHUY (acute kidney injury) Patient Disposition: Admitted As Inpatient Print Language: Cook Islander
[2024-11-06 13:36] VITALS: BP 105/46; BP 128/72; PULSE 90; PULSE 92; RESP 22; TEMP 36.6; O2SAT 89; O2SAT 91; BMI 30.4
--- NOTE | 2024-11-06 13:43 | ECG_ITS ---
Test Reason : WEAKNESS Blood Pressure : */* mmHG Vent. Rate : 87 BPM Atrial Rate : 87 BPM P-R Int : 184 ms QRS Dur : 96 ms QT Int : 402 ms P-R-T Axes : 51 7 72 degrees QTcB Int : 483 ms Normal sinus rhythm Low voltage QRS Septal infarct (cited on or before 12-Mar-2024) Abnormal ECG When compared with ECG of 24-Oct-2024 04:10, No significant changes seen Referred By: Eboni Lees Electronically Signed By: JAIDA RUGGIERO
[2024-11-06 14:24] LABS: MANUAL DIFF FLAG NO
[2024-11-06 14:25] LABS: Venous Blood Gas Refer to POC result
[2024-11-06 14:25] LABS: Hematocrit 42.2 % (42.0-52.0); Hemoglobin 13.5 g/dl (14.0-18.0); Imm Gran Abs Auto 0.05 X10*3/uL (0.00-0.03); Imm Gran Pct Auto 0.8 % (0.0-0.4); Lymphocytes Absolute Auto 1.1 X10*3/uL (1.2-4.9); Mean Corpuscular HGB Conc 32.0 g/dl (31.0-36.0); Mean Corpuscular Hemoglobin 31.0 pg (27.0-33.0); Mean Corpuscular Volume 96.8 fL (80.0-98.0); NRBC Abs Auto 0.000 X10*3/uL (0.0-0.012); NRBC Pct Auto 0.0 /100WBC (0.0-0.2); Platelet Count 215 X10*3/uL (160-400); Red Blood Count 4.36 X10*6/uL (4.60-5.80); White Blood Count 6.5 X10*3/uL (4.8-10.8)
[2024-11-06 14:26] LABS: VBG HCO3 31 mmol/L (22-26); VBG O2 % Saturation 95.0 %
[2024-11-06 14:44] LABS: Alanine Aminotransferase 11 U/L (0-40); Albumin Level 3.7 g/dL (3.5-5.0); Alkaline Phosphatase 192 U/L (39-117); Anion Gap 11 (12-20); Aspartate Amino Transferase 22 U/L (5-37); Blood Urea Nitrogen 28 mg/dL (9-16); Calcium 9.0 mg/dL (8.4-10.2); Carbon Dioxide 28 mmol/L (22-29); Chloride 108 mmol/L (96-108); Creatinine Clr Calc Pharmacy 53.7; Estimated Glomerular Filt Rate 48; Magnesium 2.3 mg/dL (1.6-2.6); Potassium 4.4 mmol/L (3.3-5.1); Sodium 143 mmol/L (135-145); Total Protein 6.4 g/dL (6.5-8.0)
[2024-11-06 14:49] LABS: B Type Natriuretic Peptide 126 pg/mL (<100)
[2024-11-06 15:02] LABS: Resp Syncy Virus RNA Qual PCR NEGATIVE (Negative); SARS COV2 PCR INHOUSE NEGATIVE (Negative)
--- NOTE | 2024-11-06 15:43 | PM.IMHP ---
History of Present Illness Date of Service: 11/06/24 Chief Complaint: weakness 79M PMH 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, hfpef, COPD, chronic LICA occulision, CKD III, LBBB, KAREN, nocturnal hypoxia on 2L at night, presented with weakness. Patient was discharged to rehab after acute stroke on 10/28/2024. States he was only there for 4 days before being sent home. At home continued to feel weak and difficulty managing, was walking slowly with walker. On day of presentation was feeling very weak and almost fell, also noted increased swelling of feet though this has resolved. Patient himself denies any shortness of breath but family has noted increased respiratory effort. EMS noted 89% on room air. Patient denies chest pain, abdominal pain, fever, chills, nausea vomiting diarrhea. Review of Systems Review of Systems: Yes all other systems are reviewed and are negative [facility] Medical History Acute CVA (cerebrovascular accident) Diabetes mellitus Type 2 [place] (myocardial infarction) Carotid stenosis, right TIA (transient ischemic attack) Chronic renal failure (CRF), stage 3 (moderate) LBBB (left bundle branch block) Cardiomyopathy CHF (congestive heart failure) Chronic back pain Sleep apnea Oxygen dependent Lung nodule CVA (cerebral vascular accident) Family History Father Cirrhosis Mother Myocardial infarction Enlarged heart Sister No problems noted. Sister No problems noted. Surgical History History of lithotripsy History of vasectomy History of back surgery Social History Household Members: Unknown / Unable to assess Household Members Other:: pt said I dont Know Housing: Unknown / Unable to assess Housing Other:: pt said I dont Know Do you presently have visiting nurse or other home services: No Alcohol intake: former Year quit: 1979 Patient Tobacco Use Status: Never used Tobacco Tobacco use type: Cigarette Years Smoked: ~20 Quit 36 years ago e-Cigarette/Vaping Use: Never Used Substance Use Type: Marijuana Advance Directives: Yes Advance Directives on File: Yes Advance Directives Date on File: 03/27/23 Do you have a plan to hurt others: No Plan service: No Current occupational status: retired Meds Allergies Allergy/AdvReac Type Severity Reaction Status Date / Time adhesive Allergy Severe Rash Verified 11/06/24 13:37 morphine (MORPHINE) Allergy Severe NAUSEA Verified 11/06/24 13:37 codeine (CODEINE) Allergy Intermediate RASH Verified 11/06/24 13:37 ibuprofen (From MOTRIN) Allergy Unknown told to Verified 11/06/24 13:37 avoid due to kidneys Active Medications: Current Medications Acetaminophen (Acetaminophen 325 Mg Tablet) 650 mg PO Q6H PRN PRN Reason: Pain, Mild 1-3,fever,headache Albuterol/Ipratropium (Albuterol/Iprat 2.5/0.5mg 3 Ml Ampul.Neb) 3 ml INHALE RQ4H WHILE AWAKE PRN PRN Reason: sob Azithromycin (Azithromycin 500 Mg Tablet) 500 mg PO Q24H AISHWARYA Calcium Carbonate (Calcium Carbonate 750 Mg Tab.Chew) 750 mg PO Q4H PRN PRN Reason: Heartburn Enoxaparin Sodium (Enoxaparin Sodium 40 Mg/0.4 Ml Syringe) 40 mg SUBCUT Q24H [facility] Sodium Chloride (Ns) 1,000 mls @ 999 mls/hr IV .Q1H1M AISHWARYA Stop: 11/06/24 16:15 Last Admin: 11/06/24 15:20 Dose: 999 mls/hr Magnesium Hydroxide (Milk Of Magnesia 30 Ml Oral.Susp) 30 ml PO DAILY PRN PRN Reason: Constipation Melatonin (Melatonin 3 Mg Tablet) 6 mg PO BEDTIME PRN PRN Reason: Insomnia Methylprednisolone Sodium Succinate (Methylprednisolone Sod Succ 40 Mg/Ml Vial) 40 mg IVPUSH Q12H [facility] Sodium Chloride (0.9 % Sodium Chloride Flush 3 Ml Syringe) 3 ml IVFLUSH QSHIFT AISHWARYA Last Admin: 11/06/24 15:33 Dose: Not Given Home Medications ?Medication ?Instructions ?Recorded ?Confirmed ?Last Taken ?Type allopurinol 100 mg tablet 200 mg PO DAILY 11/09/20 10/24/24 10/22/24 History carisoprodol 350 mg tablet 700 mg PO TID 11/09/20 10/24/24 10/22/24 History furosemide 20 mg tablet 20 mg PO DAILY 08/19/22 10/24/24 10/22/24 History omega 5-hik-wkd-fish oil 1,000 mg 1 cap PO DAILY 12/09/22 10/24/24 10/22/24 History (120 mg-180 mg) capsule (Fish Oil) clopidogrel 75 mg tablet 75 mg PO DAILY 03/26/23 10/24/24 10/22/24 History ondansetron 4 mg disintegrating 4 mg PO Q8H PRN Nausea And Vomiting 11/15/23 10/24/24 Unknown History tablet fluticasone fur. 100 mcg-umeclid 1 ea inhalation DAILY 10/24/24 10/24/24 10/22/24 History 62.5 mcg-vilant 25 mcg inhalat.powder (Trelegy Ellipta) Physical Exam Vital Signs and Narrative: Vital Signs: Last Vital Signs Temp 98 F 11/06/24 13:36 Pulse 90 11/06/24 13:36 Resp 22 H 11/06/24 13:36 BP 105/46 L 11/06/24 13:36 Pulse Ox 91 L 11/06/24 13:36 O2 Del Method Nasal Cannula 11/06/24 13:36 Oxygen Flow Rate 2 11/06/24 13:36 BMI result Body Mass Index 30.4 General: AO X 3, no acute distress Resp: Crackles at base with wheezing bilateral, no accessory muscles used CVS: S1,S2,RRR, no edema GI: soft, non tender, non distended Neuro: motor grossly intact, alert Psych: appropriate affect, appropriate insight Results Labs 11/06/24 14:15 11/06/24 14:15 Labs: Laboratory Results - last 24 hr 11/06/24 11/06/24 14:15 14:23 MCV 96.8 MCH 31.0 MCHC 32.0 RDW 14.6 Plt Count 215 D MPV 11.1 Immature Gran % (Auto) 0.8 H Neut % (Auto) 60.7 Lymph % (Auto) 16.1 L [place] % (Auto) 10.9 Eos % (Auto) 10.9 H Baso % (Auto) 0.6 Lymph # (Auto) 1.1 L [place] # (Auto) 0.7 Eos # (Auto) 0.7 H Baso # (Auto) 0.0 Abs Immat Gran (auto) 0.05 H Absolute Neuts (auto) 4.0 Absolute Nucleated RBC 0.000 Nucleated RBC % (auto) 0.0 VBG pH 7.41 VBG pCO2 49 VBG pO2 79 VBG HCO3 31 H VBG O2 Saturation 95.0 VBG Base Excess 5.8 Anion Gap 11 L Estim Creat Clear Calc 53.7 Estimated GFR 48 Random Glucose 122 H Calcium 9.0 Magnesium 2.3 Total Bilirubin 0.4 AST 22 ALT 11 Alkaline Phosphatase 192 H B-Natriuretic Peptide 126 H Total Protein 6.4 L Albumin 3.7 Influenza Type A (PCR) NEGATIVE Influenza Type B (PCR) NEGATIVE RSV RNA Qual (PCR) NEGATIVE SARS-CoV-2 RNA (RT-PCR) NEGATIVE Imaging Radiologist's Impressions: Impressions Chest X-Ray 11/06/24 13:14 IMPRESSION: Improving right basilar density could represent improving pneumonia. Chronic changes with mild bronchiectasis in the medial basal right lower lobe. Electronically signed by: Raffi Finley MD 11/06/2024 02:33 PM EDT RP Assessment and Plan (1) Dyspnea on exertion: Status: Acute Plan 79M PMH 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, hfpef, COPD, chronic LICA occulision, CKD III, LBBB, KAREN, nocturnal hypoxia on 2L at night, presented with weakness Acute hypoxic respiratory failure due to COPD with acute decompensation Steroids, nebs, wean O2 Chronic diastolic CHF Reported pedal edema not present currently, continue maintenance Lasix CKD 3 Creatinine appears around baseline, monitor Recent CVA Continue dual antiplatelet, statin PT eval KAREN CPAP at night DVT prophylaxis with Lovenox Full code Quality Stroke Does the patient have a stroke diagnosis?: No VTE Prior VTE?: No VTE Risk Level:: Medical - moderate - high VTE Device Contraindication: Treatment Not Indicated VTE Drug Contraindication: N/A - Med Ordered
--- NOTE | 2024-11-06 15:58 | PC.RT ---
pt cannot wear cpap because of his knows. said he only wears 0xygen 2 l at night time only for sleep. he is on 2 l continuous
--- NOTE | 2024-11-06 16:08 | PC.NURSE ---
ultrasound completed at this time. patient noted to be incontinent of urine. bed change completed. pericare performed. redness noted to coccyx area - no open areas noted. barrier cream applied. male purewick applied. pt turned/repositioned to comfort. pt otherwise remains on 2L via NC in no apparent respiratory distress. no sob/wob noted. respirations even/unlabored. pending bed assignment at this time. plan of care ongoing. call burleson placed within reach.
--- OUTSIDE RECORDS SUMMARY | 2024-11-06 16:24 | XMS_ITS | Encounter Summary ---
Author Organization [employer] Address [address] [place] [address] Care Team Providers Care Mail Officer Name Role Phone Unavailable Primary Care Provider Unavailabl e Reason for Visit * Reason Onset Date Comments Hospital Follow-up 11/01/2024 Encounter Details Date Type Department Care Team ([facility] st Contact Info) Description 11/01/2024 Telephone [facility] [address] [place] [address] Jhonathan Valles MD [address] [place], [place] [id number] Hospital Follow-up Social History Tobacco Use Types Packs/Day Years Used Date Smoking Tobacco: Never Assessed Sex and Gender Information Value Date Recorded Sex Assigned at Not on file Legal Sex Male 1:45 PM EDT Gender Identity Not on file Sexual Orientation Not on file documented as of this encounter Miscellaneous Notes * Telephone Encounter - Johnathon Rivera - 11/06/2024 12:27 PM EDT returning call * Telephone Encounter - Elma Raphael - 11/06/2024 10:28 AM EDT Tc from pt requesting a call back in regards prior message. Pt stated pt is already at home. * Telephone Encounter - Tara Nur RN - 11/03/2024 3:34 PM EDT [facility]. Confirmed pt was discharged from rehab today. Discharge summary scanned to chart. * Telephone Encounter - Cari Neal RN - 11/03/2024 2:37 PM EDT TC to pt. Pt daughter picks up phone and states he will not get released for another hour. RN states that she can call back so he can give verbal permission to speak with her since we do not have HIPAA form. RN explained what HIPAA was and pt daughter states that she is a medical staff manager and understands what HIPAA is but she should still be able to make an appointment for her father. RN apologized and states that we will call back when he gets released. Daughter verbalized understanding and agreement. * Telephone Encounter - Cari Neal RN - 11/01/2024 3:32 PM EDT TC to pt. Pt states that he is in rehab and will be released on Wednesday morning at 11. RN states that she will call back to make appt for HDF. Dr. Burleson would like HDF to be separate from [facility] EQUIPMENT TECHNICIAN appt. HDF can be scheduled before HE[facility] EQUIPMENT TECHNICIAN appointment per manager army Rupa. RN will postpone task until Wednesday afternoon. documented in this encounter Plan of Treatment Upcoming Encounters Date Type Department Care Team (Late st Contact Info) Description 11/20/2024 9:45 AM EDT Telemedicine [facility] [address] [place] [address] Jhonathan Valles MD [address] [place] [address] documented as of this encounter Visit Diagnoses Not on filedocumented in this encounter
--- OUTSIDE RECORDS SUMMARY | 2024-11-06 16:24 | XMS_ITS | Encounter Summary ---
Author Organization [facility] Address [address] [place] [address] Phone Care Team Providers Care Dumper Bulk System Name Role Phone Mj Bonilla MD Primary Care Provider [phone] Encounter Details Date Type Department Care Team (Late st Contact Info) Description 08/25/2022 Telephone [facility] [address] [place] [address] Caty Krishna Social History Tobacco Use [...] on filedocumented in this encounter Care Teams Dumper Bulk System Relationship Specialty Start Date End Date Mj Bonilla MD [address] [place] [address] PCP - General 05/06/20 documented as of this encounter
[2024-11-06 16:27] VITALS: BP 127/63; PULSE 85; RESP 18; TEMP 36.8; O2SAT 93
--- NOTE | 2024-11-06 16:57 | PC.NURSE ---
patient verbalizing generalized lower back pain requesting medication. hospitalist notified/aware. prn medication utilized. effectiveness pending. family remains bedside for support.
--- NOTE | 2024-11-06 18:04 | PHA.MEDREC ---
Pharmacy Consult ? Medication Reconciliation Pharmacy has completed the medication reconciliation. Spoke with pt spouse at bedside and pt daughter over the spouse's phone. Pt daughter and spouse stated when the pt was Dc'd with us 10/28 he was never started on any new medications (Atorvastatin, Cefuroxime, Doxycycline and Pantoprazole), stating they were never made aware of those being started and nothing is ready or being filled at the pt pharmacy for those.
--- NOTE | 2024-11-06 18:31 | PHA.MEDREC ---
Addendum entered by Cony French RPh 11/06/24 19:00: REVIEWED BY [facility]. Original Note: Pharmacy Consult ? Medication Reconciliation Pharmacy has completed the medication reconciliation. Spoke with pt spouse at bedside and pt daughter over the spouse's phone. Pt daughter and spouse stated when the pt was Dc'd with us 10/28 he was never started on any new medications (Atorvastatin, Cefuroxime, Doxycycline and Pantoprazole), stating they were never made aware of those being started and nothing is ready or being filled at the pt pharmacy for those. Pt daughter also stated they were never made aware the pt was suppose to stop taking the Glipizide, Simvastatin, Losartan or Omeprazole per the Dc on 10/28 and they have been giving those to the pt per the daughter.
[2024-11-06 18:40] VITALS: BP 145/81; PULSE 88; RESP 18; TEMP 36.6; O2SAT 85
[2024-11-06 20:25] LABS: Glucose, Whole Blood 249 mg/dL (60-115)
[2024-11-06 20:26] VITALS: BP 148/82; PULSE 102; RESP 21; TEMP 36.6; O2SAT 93
[2024-11-06] MEDS: oxyCODONE HCl ER 10 MG TAB.ER.12H 30 MG PO (20:33)
[2024-11-06 20:34] VITALS: BP 146/82; PULSE 104
[2024-11-06 22:25] VITALS: BP 122/77; PULSE 102; RESP 16; TEMP 36.3; O2SAT 93
[2024-11-06] MEDS: 0.9 % Sodium Chloride Flush 3 ML SYRINGE IVFLUSH (23:58)
[2024-11-07] VITALS (10 sets, daily range): BP systolic 122–166; BP diastolic 64–91; PULSE 72–100; RESP 16–20; TEMP 36.2–37.2; O2SAT 94–96; BMI 30.4
--- NOTE | 2024-11-07 00:04 | MHC.EDTECH ---
Pt incontinent of urine. Complete bedding change and hector care done. New purewick placed per RN.
[2024-11-07 04:57] LABS: Hematocrit 41.7 % (42.0-52.0); Hemoglobin 13.8 g/dl (14.0-18.0); Mean Corpuscular HGB Conc 33.1 g/dl (31.0-36.0); Mean Corpuscular Hemoglobin 31.2 pg (27.0-33.0); Mean Corpuscular Volume 94.3 fL (80.0-98.0); NRBC Abs Auto 0.000 X10*3/uL (0.0-0.012); NRBC Pct Auto 0.0 /100WBC (0.0-0.2); Platelet Count 225 X10*3/uL (160-400); Red Blood Count 4.42 X10*6/uL (4.60-5.80); White Blood Count 7.0 X10*3/uL (4.8-10.8)
[2024-11-07 05:19] LABS: Anion Gap 15 (12-20); Blood Urea Nitrogen 32 mg/dL (9-16); Calcium 9.2 mg/dL (8.4-10.2); Carbon Dioxide 25 mmol/L (22-29); Chloride 109 mmol/L (96-108); Creatinine Clr Calc Pharmacy 56.1; Estimated Glomerular Filt Rate 51; Magnesium 2.5 mg/dL (1.6-2.6); Potassium 4.8 mmol/L (3.3-5.1); Sodium 144 mmol/L (135-145)
[2024-11-07 07:36] LABS: Glucose, Whole Blood 120 mg/dL (60-115)
[2024-11-07] MEDS: Aspirin Enteric Coated 81 MG TABLET.DR PO (08:29)
[2024-11-07] MEDS: oxyCODONE HCl ER 10 MG TAB.ER.12H 30 MG PO ×2 (08:30→20:11)
[2024-11-07] MEDS: 0.9 % Sodium Chloride Flush 3 ML SYRINGE IVFLUSH ×3 (08:34→20:14)
[2024-11-07] MEDS: Fluticasone/Umeclidinium/Vilanterol 100/62.5/25 BLST.W.DEV 1 PUFF INHALE (08:38)
--- NOTE | 2024-11-07 10:12 | HO.PM.IMPN ---
Subjective Subjective Date of Service: 11/07/24 Interval History: sob resolved Physical Exam Vital Signs: Vital Signs: Last Vital Signs Temp 98.9 F 11/07/24 08:09 Pulse 85 11/07/24 08:40 Resp 16 11/07/24 08:40 BP 166/91 H 11/07/24 08:29 Pulse Ox 95 11/07/24 08:09 O2 Del Method Nasal Cannula 11/07/24 08:09 O2 Flow Rate 2 11/07/24 08:09 Oxygen Flow Rate 2 11/06/24 13:36 BMI result Body Mass Index 30.4 General: AO X 3, no acute distress Resp: CTA bilateral, no accessory muscles used CVS: S1,S2,RRR GI: soft, non tender, non distended Neuro: motor grossly intact, alert Psych: appropriate affect, appropriate insight Objective Data Active Medications Acetaminophen (Acetaminophen 325 Mg Tablet) 650 mg PO Q6H PRN PRN Reason: Pain, Mild 1-3,fever,headache Albuterol/Ipratropium (Albuterol/Iprat 2.5/0.5mg 3 Ml Ampul.Neb) 3 ml INHALE RQ4H WHILE AWAKE PRN PRN Reason: sob Allopurinol (Allopurinol 100 Mg Tablet) 200 mg PO DAILY [facility] Last Admin: 11/07/24 08:29 Dose: 200 mg Documented By: MARVIN Aspirin (Aspirin Enteric Coated 81 Mg Tablet.Dr) 81 mg PO DAILY [facility] Last Admin: 11/07/24 08:29 Dose: 81 mg Documented By: MARVIN Azithromycin (Azithromycin 500 Mg Tablet) 500 mg PO Q24H [facility] Last Admin: 11/07/24 08:29 Dose: 500 mg Documented By: MARVIN Calcium Carbonate (Calcium Carbonate 750 Mg Tab.Chew) 750 mg PO Q4H PRN PRN Reason: Heartburn Carisoprodol (Carisoprodol 350 Mg Tablet) 700 mg PO TID [facility] Last Admin: 11/07/24 08:28 Dose: 700 mg Documented By: MARVIN Carvedilol (Carvedilol 6.25 Mg Tablet) 6.25 mg PO BID [facility]; Protocol Last Admin: 11/07/24 08:29 Dose: 6.25 mg Documented By: MARVIN Clopidogrel Bisulfate (Clopidogrel Bisulfate 75 Mg Tablet) 75 mg PO DAILY [facility] Last Admin: 11/07/24 08:29 Dose: 75 mg Documented By: MARVIN Dextrose (Dextrose 50 % 25 Gm/50 Ml Syringe) 25 gm IVPUSH Q15M PRN; Protocol PRN Reason: per Hypoglycemia Standing Ord. Enoxaparin Sodium (Enoxaparin Sodium 40 Mg/0.4 Ml Syringe) 40 mg SUBCUT Q24H [facility] Last Admin: 11/07/24 09:53 Dose: 40 mg Documented By: MARVIN Fluticasone/Umeclidinium/Vilanterol (Fluticasone/Umeclidinium/Vilanterol 100/62.5/25 Blst.W.Dev) 1 puff INHALE RDAILY [facility] Last Admin: 11/07/24 08:38 Dose: 1 puff Documented By: JAKE Furosemide (Furosemide 20 Mg Tablet) 20 mg PO DAILY [facility]; Protocol Last Admin: 11/07/24 08:29 Dose: 20 mg Documented By: MARVIN Glucose (Glucose Gel 15 Gm Gel..Gram.) 15 gm PO Q15M PRN; Protocol PRN Reason: per Hypoglycemia Standing Ord. Hydromorphone HCl (Hydromorphone Hcl 0.5 Mg/0.5 Ml Syringe) 0.5 mg IVPUSH Q3H PRN; Protocol PRN Reason: Pain, Severe (Pain Scale 7-10) Last Admin: 11/07/24 00:03 Dose: 0.5 mg Documented By: WILL Insulin Human Lispro (Insulin Lispro 100 Unit/Ml 3 Ml Vial) 0 unit SUBCUT QIDACHS [facility]; Protocol Last Admin: 11/07/24 08:12 Dose: Not Given Documented By: MARVIN Non-Admin Reason: No Insulin Coverage Magnesium Hydroxide (Milk Of Magnesia 30 Ml Oral.Susp) 30 ml PO DAILY PRN PRN Reason: Constipation Melatonin (Melatonin 3 Mg Tablet) 6 mg PO BEDTIME PRN PRN Reason: Insomnia Methylprednisolone Sodium Succinate (Methylprednisolone Sod Succ 40 Mg Vial) 40 mg IVPUSH Q12H [facility] Last Admin: 11/07/24 10:06 Dose: 40 mg Documented By: MARVIN Oxycodone HCl (Oxycodone Hcl Er 10 Mg Tab.Er.12h) 20 mg PO DAILY@1500 AISHWARYA Oxycodone HCl (Oxycodone Hcl Er 10 Mg Tab.Er.12h) 30 mg PO BID [facility] Last Admin: 11/07/24 08:30 Dose: 30 mg Documented By: MARVIN Sodium Chloride (0.9 % Sodium Chloride Flush 3 Ml Syringe) 3 ml IVFLUSH QSHIFT [facility] Last Admin: 11/07/24 08:34 Dose: 3 ml Documented By: MARVIN Labs 11/07/24 04:42 11/07/24 04:42 Labs: Laboratory Results - last 24 hr 11/06/24 11/06/24 11/06/24 14:15 14:23 20:22 MCV 96.8 MCH 31.0 MCHC 32.0 RDW 14.6 Plt Count 215 D MPV 11.1 Immature Gran % (Auto) 0.8 H Neut % (Auto) 60.7 Lymph % (Auto) 16.1 L [place] % (Auto) 10.9 Eos % (Auto) 10.9 H Baso % (Auto) 0.6 Lymph # (Auto) 1.1 L [place] # (Auto) 0.7 Eos # (Auto) 0.7 H Baso # (Auto) 0.0 Abs Immat Gran (auto) 0.05 H Absolute Neuts (auto) 4.0 Absolute Nucleated RBC 0.000 Nucleated RBC % (auto) 0.0 VBG pH 7.41 VBG pCO2 49 VBG pO2 79 VBG HCO3 31 H VBG O2 Saturation 95.0 VBG Base Excess 5.8 Anion Gap 11 L Estim Creat Clear Calc 53.7 Estimated GFR 48 POC Glucose 249 H Random Glucose 122 H Calcium 9.0 Magnesium 2.3 Total Bilirubin 0.4 AST 22 ALT 11 Alkaline Phosphatase 192 H B-Natriuretic Peptide 126 H Total Protein 6.4 L Albumin 3.7 Influenza Type A (PCR) NEGATIVE Influenza Type B (PCR) NEGATIVE RSV RNA Qual (PCR) NEGATIVE SARS-CoV-2 RNA (RT-PCR) NEGATIVE 11/07/24 11/07/24 04:42 07:27 MCV 94.3 MCH 31.2 MCHC 33.1 RDW 14.3 Plt Count 225 MPV 11.0 Immature Gran % (Auto) Neut % (Auto) Lymph % (Auto) [place] % (Auto) Eos % (Auto) Baso % (Auto) Lymph # (Auto) [place] # (Auto) Eos # (Auto) Baso # (Auto) Abs Immat Gran (auto) Absolute Neuts (auto) Absolute Nucleated RBC 0.000 Nucleated RBC % (auto) 0.0 VBG pH VBG pCO2 VBG pO2 VBG HCO3 VBG O2 Saturation VBG Base Excess Anion Gap 15 Estim Creat Clear Calc 56.1 Estimated GFR 51 POC Glucose 120 H Random Glucose 146 H Calcium 9.2 Magnesium 2.5 Total Bilirubin AST ALT Alkaline Phosphatase B-Natriuretic Peptide Total Protein Albumin Influenza Type A (PCR) Influenza Type B (PCR) RSV RNA Qual (PCR) SARS-CoV-2 RNA (RT-PCR) Assessment and Plan (1) Dyspnea on exertion: Status: Acute Plan 79M PMH 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, hfpef, COPD, chronic LICA occulision, CKD III, LBBB, KAREN, nocturnal hypoxia on 2L at night, presented with weakness Acute hypoxic respiratory failure due to COPD with acute decompensation Steroids, nebs, wean O2 Chronic diastolic CHF Reported pedal edema not present currently, continue maintenance Lasix CKD 3 Creatinine appears around baseline, monitor Recent CVA Continue dual antiplatelet, statin PT eval KAREN CPAP at night DVT prophylaxis with Lovenox Full code reason for continued hospitalization:weaning o2, pt eval Quality Stroke Does the patient have a stroke diagnosis?: No VTE Prior VTE?: No VTE Risk Level:: Medical - moderate - high VTE Device Contraindication: Treatment Not Indicated VTE Drug Contraindication: N/A - Med Ordered
[2024-11-07 12:04] LABS: Glucose, Whole Blood 191 mg/dL (60-115)
[2024-11-07] MEDS: oxyCODONE HCl ER 10 MG TAB.ER.12H 20 MG PO (14:39)
--- NOTE | 2024-11-07 14:52 | MHC.CM.PN ---
IMM 11/07/24, Pt. lives with his , he had recently been in this hosp, DC 10/[address] 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 was back in hosp. PCP is Jhonathan Espinal at [facility], first appt. 11/20/24, he was with Dr. Bonilla who has retired. His grand son is his SEWING MACHINE OPERATOR SEMIAUTOMATIC, he has about 30 hrs per week. For DME: home O2 from [employer], a cane, a walker. Family to provide transport home at DC. DCP: home with services. CM to follow for DC needs.
[2024-11-07 16:14] LABS: Glucose, Whole Blood 133 mg/dL (60-115)
[2024-11-07 20:30] LABS: Glucose, Whole Blood 223 mg/dL (60-115)
[2024-11-08] VITALS (8 sets, daily range): BP systolic 112–156; BP diastolic 62–79; PULSE 65–82; RESP 16–18; TEMP 36.3–36.8; O2SAT 92–95
[2024-11-08 07:15] LABS: Glucose, Whole Blood 140 mg/dL (60-115)
[2024-11-08 07:18] LABS: Anion Gap 14 (12-20); Blood Urea Nitrogen 34 mg/dL (9-16); Calcium 9.3 mg/dL (8.4-10.2); Carbon Dioxide 28 mmol/L (22-29); Chloride 107 mmol/L (96-108); Creatinine Clr Calc Pharmacy 60.5; Estimated Glomerular Filt Rate 55; Potassium 4.5 mmol/L (3.3-5.1); Sodium 144 mmol/L (135-145)
[2024-11-08] MEDS: oxyCODONE HCl ER 10 MG TAB.ER.12H 30 MG PO ×2 (07:19→21:13)
[2024-11-08] MEDS: 0.9 % Sodium Chloride Flush 3 ML SYRINGE IVFLUSH ×2 (07:20→16:35)
[2024-11-08] MEDS: Aspirin Enteric Coated 81 MG TABLET.DR PO (07:21)
[2024-11-08 07:22] LABS: Hematocrit 42.9 % (42.0-52.0); Hemoglobin 14.0 g/dl (14.0-18.0); Mean Corpuscular HGB Conc 32.6 g/dl (31.0-36.0); Mean Corpuscular Hemoglobin 31.3 pg (27.0-33.0); Mean Corpuscular Volume 96.0 fL (80.0-98.0); NRBC Abs Auto 0.000 X10*3/uL (0.0-0.012); NRBC Pct Auto 0.0 /100WBC (0.0-0.2); Platelet Count 237 X10*3/uL (160-400); Red Blood Count 4.47 X10*6/uL (4.60-5.80); White Blood Count 11.2 X10*3/uL (4.8-10.8)
[2024-11-08] MEDS: oxyCODONE HCl Immed Release 5 MG TABLET PO ×4 (07:24→21:14)
--- NOTE | 2024-11-08 10:44 | HO.PM.IMPN ---
Subjective Subjective Date of Service: 11/08/24 Interval History: sob resolved Physical Exam Vital Signs: Vital Signs: Last Vital Signs Temp 97.4 F 11/08/24 07:07 Pulse 66 11/08/24 07:07 Resp 18 11/08/24 07:07 BP 156/79 H 11/08/24 07:07 Pulse Ox 94 11/08/24 07:07 O2 Del Method Nasal Cannula 11/08/24 07:07 O2 Flow Rate 2 11/08/24 07:07 Oxygen Flow Rate 2 11/06/24 13:36 BMI result Body Mass Index 30.4 General: AO X 3, no acute distress Resp: CTA bilateral, no accessory muscles used CVS: S1,S2,RRR GI: soft, non tender, non distended Neuro: motor grossly intact, alert Psych: appropriate affect, appropriate insight Objective Data Active Medications Acetaminophen (Acetaminophen 325 Mg Tablet) 650 mg PO Q6H PRN PRN Reason: Pain, Mild 1-3,fever,headache Albuterol/Ipratropium (Albuterol/Iprat 2.5/0.5mg 3 Ml Ampul.Neb) 3 ml INHALE RQ4H WHILE AWAKE PRN PRN Reason: sob Allopurinol (Allopurinol 100 Mg Tablet) 200 mg PO DAILY [facility] Last Admin: 11/08/24 07:21 Dose: 200 mg Documented By: JOSE FRANCISCO Aspirin (Aspirin Enteric Coated 81 Mg Tablet.Dr) 81 mg PO DAILY [facility] Last Admin: 11/08/24 07:21 Dose: 81 mg Documented By: JOSE FRANCISCO Azithromycin (Azithromycin 500 Mg Tablet) 500 mg PO Q24H [facility] Last Admin: 11/08/24 07:20 Dose: 500 mg Documented By: JOSE FRANCISCO Calcium Carbonate (Calcium Carbonate 750 Mg Tab.Chew) 750 mg PO Q4H PRN PRN Reason: Heartburn Carisoprodol (Carisoprodol 350 Mg Tablet) 700 mg PO TID [facility] Last Admin: 11/08/24 07:21 Dose: 700 mg Documented By: JOSE FRANCISCO Carvedilol (Carvedilol 6.25 Mg Tablet) 6.25 mg PO BID [facility]; Protocol Last Admin: 11/08/24 07:21 Dose: 6.25 mg Documented By: JOSE FRANCISCO Clopidogrel Bisulfate (Clopidogrel Bisulfate 75 Mg Tablet) 75 mg PO DAILY [facility] Last Admin: 11/08/24 07:22 Dose: 75 mg Documented By: JOSE FRANCISCO Dextrose (Dextrose 50 % 25 Gm/50 Ml Syringe) 25 gm IVPUSH Q15M PRN; Protocol PRN Reason: per Hypoglycemia Standing Ord. Enoxaparin Sodium (Enoxaparin Sodium 40 Mg/0.4 Ml Syringe) 40 mg SUBCUT Q24H [facility] Last Admin: 11/07/24 09:53 Dose: 40 mg Documented By: MARVIN Fluticasone/Umeclidinium/Vilanterol (Fluticasone/Umeclidinium/Vilanterol 100/62.5/25 Blst.W.Dev) 1 puff INHALE RDAILY [facility] Last Admin: 11/07/24 08:38 Dose: 1 puff Documented By: JAKE Furosemide (Furosemide 20 Mg Tablet) 20 mg PO DAILY [facility]; Protocol Last Admin: 11/08/24 07:21 Dose: 20 mg Documented By: JOSE FRANCISCO Glucose (Glucose Gel 15 Gm Gel..Gram.) 15 gm PO Q15M PRN; Protocol PRN Reason: per Hypoglycemia Standing Ord. Insulin Human Lispro (Insulin Lispro 100 Unit/Ml 3 Ml Vial) 0 unit SUBCUT QIDACHS [facility]; Protocol Last Admin: 11/08/24 07:22 Dose: Not Given Documented By: JOSE FRANCISCO Non-Admin Reason: No Insulin Coverage Magnesium Hydroxide (Milk Of Magnesia 30 Ml Oral.Susp) 30 ml PO DAILY PRN PRN Reason: Constipation Melatonin (Melatonin 3 Mg Tablet) 6 mg PO BEDTIME PRN PRN Reason: Insomnia Methylprednisolone Sodium Succinate (Methylprednisolone Sod Succ 40 Mg Vial) 40 mg IVPUSH Q12H [facility] Last Admin: 11/07/24 20:11 Dose: 40 mg Documented By: CAROLINE Oxycodone HCl (Oxycodone Hcl Er 10 Mg Tab.Er.12h) 20 mg PO DAILY@1500 [facility] Last Admin: 11/07/24 14:39 Dose: 20 mg Documented By: DILSHAD Oxycodone HCl (Oxycodone Hcl Er 10 Mg Tab.Er.12h) 30 mg PO BID [facility] Last Admin: 11/08/24 07:19 Dose: 30 mg Documented By: JOSE FRANCISCO Oxycodone HCl (Oxycodone Hcl Immed Release 5 Mg Tablet) 5 mg PO Q4H PRN PRN Reason: Pain, Severe (Pain Scale 7-10) Last Admin: 11/08/24 07:24 Dose: 5 mg Documented By: JOSE FRANCISCO Sodium Chloride (0.9 % Sodium Chloride Flush 3 Ml Syringe) 3 ml IVFLUSH QSHIFT [facility] Last Admin: 11/08/24 07:20 Dose: 3 ml Documented By: JOSE FRANCISCO Labs 11/08/24 06:52 11/08/24 06:52 Labs: Laboratory Results - last 24 hr 11/07/24 11/07/24 11/07/24 11:58 16:10 20:26 MCV MCH MCHC RDW Plt Count MPV Absolute Nucleated RBC Nucleated RBC % (auto) Anion Gap Estim Creat Clear Calc Estimated GFR POC Glucose 191 H 133 H 223 H Random Glucose Calcium 11/08/24 11/08/24 06:52 07:11 MCV 96.0 MCH 31.3 MCHC 32.6 RDW 14.5 Plt Count 237 MPV 10.9 Absolute Nucleated RBC 0.000 Nucleated RBC % (auto) 0.0 Anion Gap 14 Estim Creat Clear Calc 60.5 Estimated GFR 55 POC Glucose 140 H Random Glucose 158 H Calcium 9.3 Assessment and Plan (1) Dyspnea on exertion: Status: Acute Plan 79M PMH 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, hfpef, COPD, chronic LICA occulision, CKD III, LBBB, KAREN, nocturnal hypoxia on 2L at night, presented with weakness Acute hypoxic respiratory failure due to COPD with acute decompensation Steroids, nebs, wean O2 Chronic diastolic CHF Reported pedal edema not present currently, continue maintenance Lasix CKD 3 Creatinine appears around baseline, monitor Recent CVA Continue dual antiplatelet, statin PT eval KAREN CPAP at night DVT prophylaxis with Lovenox Full code reason for continued hospitalization:dispo planning Quality Stroke Does the patient have a stroke diagnosis?: No VTE Prior VTE?: No VTE Risk Level:: Medical - moderate - high VTE Device Contraindication: Treatment Not Indicated VTE Drug Contraindication: N/A - Med Ordered
[2024-11-08 11:30] LABS: Glucose, Whole Blood 128 mg/dL (60-115)
[2024-11-08] MEDS: oxyCODONE HCl ER 10 MG TAB.ER.12H 20 MG PO (13:33)
--- NOTE | 2024-11-08 15:08 | MHC.CM.PN ---
PT has rec STR for pt. pt. has requested referrals to be made to [facility] and [facility], referrals have been made.
[2024-11-08] MEDS: Fluticasone/Umeclidinium/Vilanterol 100/62.5/25 BLST.W.DEV 1 PUFF INHALE (15:11)
[2024-11-08 15:43] LABS: Glucose, Whole Blood 118 mg/dL (60-115)
[2024-11-08 21:10] LABS: Glucose, Whole Blood 127 mg/dL (60-115)
[2024-11-08 23:21] LABS: Appearance Urine Clear; Glucose Urine UA >=1000 mg/dL (Negative); PH 5.5 (5.0-9.0); Specific Gravity - Urine 1.015 (1.005-1.025); UMIC TRIGGER UACC YES
[2024-11-09] VITALS (7 sets, daily range): BP systolic 125–172; BP diastolic 60–99; PULSE 70–89; RESP 15–18; TEMP 36.2–36.5; O2SAT 92–98
[2024-11-09] MEDS: oxyCODONE HCl Immed Release 5 MG TABLET PO (05:59)
[2024-11-09] MEDS: Fluticasone/Umeclidinium/Vilanterol 100/62.5/25 BLST.W.DEV 1 PUFF INHALE (08:07)
[2024-11-09 08:40] LABS: Glucose, Whole Blood 138 mg/dL (60-115)
[2024-11-09] MEDS: oxyCODONE HCl ER 10 MG TAB.ER.12H 30 MG PO (08:45)
[2024-11-09] MEDS: Aspirin Enteric Coated 81 MG TABLET.DR PO (08:47)
[2024-11-09] MEDS: 0.9 % Sodium Chloride Flush 3 ML SYRINGE IVFLUSH (08:48)
[2024-11-09] MEDS: Milk of Magnesia 30 ML ORAL.SUSP PO (09:02)
--- NOTE | 2024-11-09 10:38 | PM.DS ---
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 Patient was discharged to rehab after acute stroke on 10/28/2024. States he was only there for 4 days before being sent home. At home continued to feel weak and difficulty managing, was walking slowly with walker. On day of presentation was feeling very weak and almost fell, also noted increased swelling of feet though this has resolved. Patient himself denies any shortness of breath but family has noted increased respiratory effort. EMS noted 89% on room air. Patient denies chest pain, abdominal pain, fever, chills, nausea vomiting diarrhea. hospital course: Patient was admitted for acute hypoxic respiratory failure due to COPD with acute decompensation. Was treated with steroids and nebulizers and azithromycin and was able to be weaned off O2. Shortness of breaths resolved. For chronic diastolic CHF patient has reported pedal edema is no longer present. He was continued on maintenance Lasix. For CKD 3 creatinine remained at baseline. For recent CVA was continued on dual antiplatelet and statin. Was seen by physical therapy recommended short-term rehab to which patient will be discharged she is expected to require less than 30 days. For KAREN and nocturnal hypoxia patient does not always tolerate CPAP at night and uses 2 L of oxygen. Time Attestation Discharge Coordination Time (in mins): 37 Quality: Safe Use of Opioids Does Pt have an Active Cancer Diagnosis on the Problem List?: No Quality: Stroke Does the patient have a stroke diagnosis?: No Physical Exam Vital Signs: Vital Signs: Last Vital Signs Temp 97.1 F 11/09/24 07:02 Pulse 89 11/09/24 08:45 Resp 18 11/09/24 08:09 BP 145/99 H 11/09/24 08:47 Pulse Ox 95 11/09/24 07:02 O2 Del Method Nasal Cannula 11/09/24 07:02 O2 Flow Rate 1 11/09/24 07:02 Oxygen Flow Rate 2 11/06/24 13:36 BMI result Body Mass Index 30.4 General: AO X 3, no acute distress Resp: CTA bilateral, no accessory muscles used CVS: S1,S2,RRR GI: soft, non tender, non distended Neuro: motor grossly intact, alert Psych: appropriate affect, appropriate insight DS: Data Data Completed and Pending Completed studies during hospitalization [Text1]: Procedures Dilation of Right Common Carotid Artery, Open Approach (12/14/22) Extirpation of Matter from Right Common Carotid Artery, Open Approach (12/14/22) Introduction of Other Thrombolytic into Peripheral Vein, Percutaneous Approach (11/08/22) Introduction of Vasopressor into Peripheral Vein, Percutaneous Approach (12/14/22) Supplement Right Common Carotid Artery with Synthetic Substitute, Open Approach (12/14/22) Labs on day of discharge: Laboratory Results - last 24 hr 11/08/24 11/08/24 11/08/24 11:23 15:40 21:06 POC Glucose 128 H 118 H 127 H Urine Color Urine Appearance Urine pH Ur Specific [place] Urine Protein Urine Glucose (UA) Urine Ketones Urine Blood Urine Nitrite Ur Leukocyte Esterase Urine RBC Urine WBC Ur Squamous Epith Cells Urine Bacteria Hyaline Casts 11/08/24 11/09/24 23:00 07:22 POC Glucose 138 H Urine Color Yellow Urine Appearance Clear Urine pH 5.5 Ur Specific [place] 1.015 Urine Protein Negative Urine Glucose (UA) >=1000 H Urine Ketones Negative Urine Blood Negative Urine Nitrite Negative Ur Leukocyte Esterase Negative Urine RBC 0-2 Urine WBC 0-5 Ur Squamous Epith Cells 0-2 Urine Bacteria None Seen Hyaline Casts 0-2 Discharge Plan Discharge Anticipated Discharge Date/Time: 11/09/24 10:35 Patient Disposition: Xfer Inpatient Rehab Fac Discharge Diagnosis: copd Referrals: [facility] [Outside] - 1 Week Referral Note: ACUTE REHAB Jhonathan Valles MD [Primary Care Provider, Medical] - 1 Week Discharge Medications: New azithromycin 500 mg Tablet 500 mg PO Q24H 2 Days Qty: 0 0RF prednisone 20 mg tablet 40 mg PO DAILY Qty: 10 0RF Continued ipratropium-albuterol 0.5 mg-3 mg(2.5 mg base)/3 mL solution for nebulization 3 ml inhalation Q6H PRN (Reason: wheezing) Qty: 180 4RF carvedilol 6.25 mg tablet 6.25 mg PO BID Qty: 180 3RF Farxiga 10 mg tablet 10 mg PO DAILY 90 Days Qty: 90 3RF carisoprodol 350 mg tablet 700 mg PO TID allopurinol 100 mg tablet 200 mg PO DAILY omega [id number] oil [Fish Oil] 1,000 mg (120 mg-180 mg) Capsule 1 cap PO DAILY clopidogrel 75 mg tablet 75 mg PO DAILY Trelegy Ellipta 100-62.5-25 mcg blister with device 1 ea INHALATION DAILY aspirin 81 mg Tablet,Delayed Release (Dr/Ec) 81 mg PO DAILY Qty: 30 0RF oxycodone [OxyContin] 20 mg tablet,oral only,ext.rel.12 hr 20 mg PO DAILY@1500 Qty: 30 0RF oxycodone [OxyContin] 30 mg tablet,oral only,ext.rel.12 hr 30 mg PO BID Qty: 60 0RF furosemide 20 mg tablet 20 mg PO DAILY ondansetron 4 mg tablet,disintegrating 4 mg PO Q8H PRN (Reason: Nausea And Vomiting) Discharge Orders: Discharge Order (Routine); Ordered 11/09/24 Ordered By: Fahad Abad Diet: Advance to usual diet Activity on Discharge: As tolerated Stand Alone Forms: Patient Portal Discharge page Print Language: Luxembourgish Care Plan Goals: recovery Health Concerns: copd Plan of Treatment: prednisone, azitrho, rehab Assessment: see above
[2024-11-09 11:34] LABS: Glucose, Whole Blood 168 mg/dL (60-115)
== END 2024-11-09 14:37 | DRG 190 ==
LOC: HO.ED 15:31 → HO.EDOVER 17:17 → HO.IMC 11-07 12:00
PROVIDERS: Physician Assistant Medical; Student in an Organized Health Care Education/Training Program; Admitting Provider Internal Medicine; Emergency Provider Emergency Medicine; PCP Internal Medicine; Visit Provider Internal Medicine
DX: J44.1 Chronic obstructive pulmonary disease with (acute) exacerbation (principal); J96.01 Acute respiratory failure with hypoxia; I69.351 Hemiplegia and hemiparesis following cerebral infarction affecting right dominant side; N17.9 Acute kidney failure, unspecified; I50.32 Chronic diastolic (congestive) heart failure; G47.33 Obstructive sleep apnea (adult) (pediatric); N18.30 Chronic kidney disease, stage 3 unspecified; E11.22 Type 2 diabetes mellitus with diabetic chronic kidney disease; Z20.822 Contact with and (suspected) exposure to COVID-19; Z87.891 Personal history of nicotine dependence; Z79.02 Long term (current) use of antithrombotics/antiplatelets; Z79.82 Long term (current) use of aspirin; Z79.899 Other long term (current) drug therapy
CPT/HCPCS: 36415; 71045; 80048; 80053; 81001; 82803; 82947; 83735; 83880; 85025; 85027; 87637; 93005; 93970; 94640; 97161; 97530; 99285; J1171; J1650; J2919

== ENCOUNTER → 2024-11-06 13:43 | Outpatient (BNV) | payer MEDICARE, MEDICAID, SELFPAY | PROVIDERS: Admitting Provider Internal Medicine; Emergency Provider Emergency Medicine; Visit Provider Internal Medicine | DX: R94.31 Abnormal electrocardiogram [ECG] [EKG] (principal) | CPT/HCPCS: 93010 ==

== ENCOUNTER → 2024-11-06 13:43 | Outpatient (BNV) | payer MEDICARE, MEDICAID, SELFPAY | PROVIDERS: Emergency Provider Emergency Medicine; Visit Provider Radiology Diagnostic Radiology | DX: R60.0 Localized edema (principal) | CPT/HCPCS: 93970 ==

== ENCOUNTER → 2024-11-06 15:07 | Outpatient (BNV) | payer MEDICARE, MEDICAID, SELFPAY | PROVIDERS: Admitting Provider Internal Medicine; Emergency Provider Emergency Medicine; Visit Provider Internal Medicine | DX: J96.01 Acute respiratory failure with hypoxia (principal); R06.09 Other forms of dyspnea; R53.1 Weakness | CPT/HCPCS: 99223 ==

== ENCOUNTER 2024-11-22 14:53 | Outpatient (AMB) | payer MEDICARE, MEDICAID, SELFPAY ==
--- OUTSIDE RECORDS SUMMARY | 2004-11-21 07:15 | XMS_ITS | Continuity of Care Document ---
Author Name [facility] Organization [facility] Care Team Providers Care Superintendent House Name Role Phone [facility] Unavailable Unavailable Social History Combined list of [...]
--- NOTE | 2024-11-22 14:59 | MHC.PC.OV ---
Vital Signs 11/22/24 15:06 Height 5 ft 9 in Weight 233 lb BMI 34.4 BP 118/65 Respiration 18 Pulse 88 Pulse Source Pulse Oximeter Temp 98.9 F Temp Source Temporal Artery Scan Pulse Oximetry (%) 93 Oxygen Delivery Method Room Air Intake Visit Reasons: Establish Care / TCM Intake Note: Visit Reason: TCM Intake Note: Patient is here for hospital discharge follow up. Patient was discharged from [facility] D[facility] Required: No Escrow Clerk: Not Required per policy Accompanied by: Spouse Allergies adhesive Allergy (Severe, Verified 11/22/24 14:59) Rash morphine (MORPHINE) Allergy (Severe, Verified 11/22/24 14:59) NAUSEA codeine (CODEINE) Allergy (Intermediate, Verified 11/22/24 14:59) RASH ibuprofen (From MOTRIN) Allergy (Unknown, Verified 11/22/24 14:59) told to avoid due to kidneys Tobacco use date assessed: 11/22/24 Fall risk assessment: 2 + Falls in past year Last assessed Fall Risk: 11/22/24 Dental Screening Dental Screen Date: 11/22/24 Did you have a dental visit in the last 12 months?: No Did you have a dental problem in the last 6 months where you did not have access to dental care?: No HPI HPI Comments History of Present Illness Details Patient presents to the office for a TCM visit. Date of admission:11/06/24 Date of discharge:11/09/24 This is a Follow[place]up [place] [facility] [place]Hospital Course/Discharge Summary: The patient is a 79-year-old male presenting for a new patient appointment and a transitional care management follow-up after recent hospital discharge. Patient had a cerebrovascular accident in October 2024 resulting in residual right hemiparesis in the beginning of October. He was then discharged to rehab after acute stroke on 10/28/2024 and he was only there for 4 days before being sent home. At home the patient continued to feel weak and had difficulty managing, was walking slowly with walker therefore he presented back to the emergency department on 11/06/2024. At that time when he arrived to the emergency department via EMS they noticed he was hypoxic with respiratory rate of 80 9% on room air. Although patient denied any shortness of breath, chest pain, abdominal pain, nausea vomiting, diarrhea or black or bloody stools. Although family noted he was short of breath with ambulation. Due to patient being hypoxic in the emergency department he was admitted at [facility] for acute hypoxic respiratory failure due to COPD with acute decompensation. He was treated with steroids, nebulizers and azithromycin. He was able to be weaned off of oxygen. His shortness of breath improved/resolved. For his chronic diastolic CHF patient had reported pedal edema which resolved before being discharged. They continued him on his maintenance Lasix. For his CKD creatinine remained at baseline. For recent CVA it was recommended that he continue on dual antiplatelet and statin. He was seen by Physical therapy and recommended short-term rehab to which the patient was discharged to then he was discharged home after rehab of 1 day. Patient does not tolerate CPAP at night for his obstructive sleep apnea or nocturnal hypoxia therefore he uses 2 L of oxygen at nighttime. The patient has a history of gout and has undergone three back surgeries since 1989, leading to chronic back pain managed with medications including oxycodone and Soma. He is currently on a regimen of multiple medications, including carvedilol, furosemide, and dual antiplatelet therapy for recent CVA. There is a plan to reduce his narcotic use due to concerns about safety and potential contribution to hypoxia. Social History - Family: Lives with , daughter, and grandson who is his AUTOMOTIVE ACCESSORY INSTALLER. - Housing: Has a walk-in shower and uses a cane for mobility. - Employment: History of work-related injury in 1989, covered by Workman's Comp. [facility] then discharged home next day Lives with: , Daughter and grand son Diagnosis: Acute hypoxic respiratory failure due to COPD with acute decompensation Procedures performed: Chest x-ray and venous duplex ultrasound of lower extremity New medications: azithromycin and prednisone Discontinued medications: none Change medications/dosing: none Pending labs: None at this time Pending diagnostic test: None at this time Any Follow-up Labs required? None at this time Any Follow-up Diagnostic test required? How are you feeling? Patient reports he is feeling better and does not have any shortness of breath Are you in any pain or discomfort? Patient reports chronic back pain Do you have any questions about your condition or discharge instructions? All questions about his condition and discharge were answered Were you able to get your medications filled? Patient was able to take all his medications and fill them Do you have any questions about your medications? Patient does not have any questions about his medications only his narcotics for his chronic pain Any referrals required? No referrals required at this time Were you able to schedule your follow-up appointment? Patient was able to schedule follow up appointment If home health was ordered, have they contact you? yes appointment set up Any outpatient services, if so, are you scheduled? yes already set up and coming to pt's house Are there any additional resources like transportation you might need during her recovery? - VNA? Referral placed already - AUTOMOTIVE ACCESSORY INSTALLER? Grandson - Meals on wheels? not interested Educational need/resources: What support system do you have? , Daughter, grandson [facility] Medical History (Updated 11/22/24 @ 17:20 by Monique Hernandez PA-C) Hospital discharge follow-up Acute CVA (cerebrovascular accident) Diabetes mellitus Type 2 [place] (myocardial infarction) Carotid stenosis, right TIA (transient ischemic attack) Chronic renal failure (CRF), stage 3 (moderate) LBBB (left bundle branch block) Cardiomyopathy CHF (congestive heart failure) Chronic back pain Sleep apnea Oxygen dependent Lung nodule CVA (cerebral vascular accident) Surgical History History of lithotripsy History of vasectomy History of back surgery Family History Father Cirrhosis Mother Myocardial infarction Enlarged heart Sister No problems noted. Sister No problems noted. Social History Household Members: Family Housing: House Do you presently have visiting nurse or other home services: No Alcohol intake: current Alcohol intake frequency: does not drink Patient Tobacco Use Status: Former Tobacco user Tobacco use type: Cigarette Years Smoked: ~20 Quit 36 years ago Advance Directives Date on File: 03/27/23 service: No Current occupational status: retired Cognitive needs: Yes (walker/cane) Hearing needs: Yes (hearing loss does not wear hearing aids) Vision needs: Yes (reading glasses) Questionnaire PHQ-9 Over the last 2 weeks, how often have you been bothered by any of the following problems? 1. Little interest or pleasure in doing things: not at all 2. Feeling down, depressed, or hopeless: not at all 3. Trouble falling or staying asleep, or sleeping too much: not at all 4. Feeling tired or having little energy: not at all 5. Poor appetite or overeating: not at all 6. Feeling bad about yourself - or that you are a failure or have let yourself or your family down: not at all 7. Trouble concentrating on things, such as reading the newspaper or watching television: not at all 8. Moving or speaking so slowly that other people could have noticed. Or the opposite - being so fidgety or restless that you have been moving around a lot more than usual: not at all 9. Thoughts that you would be better off or of hurting yourself in some way: not at all Total score: 0 Depression Screening Interpretation: Negative Depression Screening Done: Yes 97282 - PHQ-9 Billing: Yes Source: Developed by Drs. Dread Strauss, Laura Edwards, Hermann Brush and colleagues, with an educational cooper from [employer]. Thrive Questionnaire Date Thrive assessed: 11/22/24 I am a: Patient What is your living situation today?: I have a steady place to live Within the past 12 months, did the food you bought not last and you didn't have the money to get more?: Never true Within the past 12 months, did you worry whether your food would run out before you got money to buy more?: Never true Do you have trouble paying for medicines?: No Do you have trouble getting transportation to medical appointments?: No Do you have trouble paying your heating and electricity bill?: No Do you have trouble taking care of your child, family member or friend?: No Do you have trouble with day-to-day activities such as bathing, preparing meals, shopping, managing finances, etc.?: No Are you currently unemployed and looking for a job?: No Are you interested in more education?: No Please select the resources that you would like help with: None THRIVE Score: 0 AUDIT C Alcohol Use Questionnaire (AUDIT-C) 1. How often do you have a drink containing alcohol?: Never 3. How often do you have six or more drinks on one occasion?: Never Total Score: 0 Score Reviewed/Action Taken: No BRIELLE-7 AMB Questionnaire BRIELLE-7 Date BRIELLE - 7 assessed: 11/22/24 Feeling nervous, anxious, or on edge: 0 = Not at all Not being able to stop or control worryin = Not at all Worrying too much about different things: 0 = Not at all Trouble relaxin = Not at all Being so restless that it is hard to sit still: 0 = Not at all Becoming easily annoyed or irritable: 0 = Not at all Feeling afraid as if something awful might happen: 0 = Not at all Total BRIELLE-7 score (0-4 normal; 5-9 mild; 10-14 moderate; 15-21 severe): 0 Source: Developed by Drs. Dread Strauss, Laura Edwards, Hermann Brush and colleagues, with an educational cooper from [employer]. BRIELLE-7 Assessment Billing BRIELLE-7 Assessment Tool: BRIELLE-7 Assessment 12139 Review of Systems Const Details: - Respiratory: Reports dyspnea on exertion. Denies cough, hemoptysis, or wheezing. - Cardiovascular: Denies chest pain, orthopnea, or syncope. - Neurological: Reports weakness and difficulty managing with a walker. Denies headaches, dizziness, or balance issues. All systems reviewed & are unremarkable except as noted in HPI and below Physical exam (Primary Care) Vital Signs: Last Vital Signs Temp 98.9 F 11/22/24 15:06 Pulse 88 11/22/24 15:06 Resp 18 11/22/24 15:06 BP 118/65 11/22/24 15:06 Pulse Ox 93 11/22/24 15:06 Oxygen Delivery Method Room Air 11/22/24 15:06 Vitals signs have been reviewed. Care Plan Goal for BP management: <140/90 at Goal BMI result Body Mass Index 34.4 BMI Assessment/Plan discussion: High BMI High, discussed plan: lifestyle, weight reduction, dietary, physical activity and alcohol moderation Tobacco/Smoking Status: Tobacco use Status Tobacco use date assessed 11/22/24 11/22/24 15:02 Patient Tobacco Use Status Former Tobacco user 11/22/24 15:12 Tobacco use type Cigarette 11/22/24 15:12 e-Cigarette/Vaping Use 11/22/24 15:02 PHQ-9: PHQ-9 Score PHQ-9: Total score 0 11/22/24 15:02 Depression Screening Interpretation: Negative Thrive Assessment: Date of Thrive Assessment Date Thrive assessed 11/22/24 11/22/24 15:02 Const Other: Appearance: Alert. Oriented X3. No acute distress. Head: Normal external exam. Normocephalic. Atraumatic. Eyes: Pupils are equal, round, and reactive to light. Extraocular movements intact. Conjunctiva and sclera normal. Eyelids normal. Throat: Pharynx normal. Uvula midline. Moist mucous membranes. Neck: Normal inspection. Neck supple. Full range of motion. Cardiovascular: Normal heart rate and rhythm. Respiratory: No respiratory distress. Painless inspiration. Back: Full range of motion noted. Skin: Skin warm and dry. Normal skin color. Normal skin turgor. No rashes/lesions/lacerations noted. Extremities: No lower extremity edema. Extremities exhibit normal range of motion. Neuro: Oriented X 3. Chronic Right-sided hemiparesis noted. Walking with cane. Coding Level of Care Code TCM High MDM <= 14 days Complex EM visit Add On G2211 Diagnoses Hospital discharge follow-up Z09 CVA (cerebral vascular accident) I63.9 COPD (chronic obstructive pulmonary disease) J44.9 Chronic renal failure (CRF), stage 3 (moderate) N18.30 Obstructive sleep apnea G47.33 Chronic back pain M54.9; G89.29 Additional Codes PHQ-9 - 24084 - PHQ-9 Billing: Yes ([id number]) BRIELLE-7 Assessment Billing - BRIELLE-7 Assessment Tool: BRIELLE-7 Assessment 77232 ([id number]) Time Spent (min) 50 Assessment & Plan Assessment & Plan (1) Hospital discharge follow-up: Code(s): Z09 - Encounter for follow-up examination after completed treatment for conditions other than malignant neoplasm Category: Medical (2) CVA (cerebral vascular accident): Comment: With residual right-sided hemiparesis Code(s): I63.9 - Cerebral infarction, unspecified Category: Medical Plan: The patient will continue dual antiplatelet therapy and statin for secondary prevention of cerebrovascular events. Physical therapy has been recommended for rehabilitation, and the patient was discharged to short-term rehab for approximately 30 days. Patient is now at home with walker tolerating well. Will continue to monitor. (3) COPD (chronic obstructive pulmonary disease): Code(s): J44.9 - Chronic obstructive pulmonary disease, unspecified Category: Medical Plan: The patient was treated for acute hypoxic respiratory failure with steroids, nebulizers, and azithromycin, and was successfully weaned off oxygen. He will continue using 2 liters of oxygen at night due to nocturnal hypoxia. (4) Chronic renal failure (CRF), stage 3 (moderate): Code(s): N18.30 - Chronic kidney disease, stage 3 unspecified Category: Medical Plan: The patient is on maintenance furosemide therapy, and his creatinine levels have remained at baseline. (5) Obstructive sleep apnea: Code(s): G47.33 - Obstructive sleep apnea (adult) (pediatric) Category: Medical Plan: The patient does not tolerate CPAP and uses 2 liters of oxygen at night. (6) Chronic back pain: Code(s): M54.9 - Dorsalgia, unspecified; G89.29 - Other chronic pain Category: Medical Plan: The patient is on a regimen of oxycodone and Soma for chronic back pain management following three back surgeries. There is a plan to reduce narcotic use due to safety concerns, with a potential referral to pain management for alternative therapies. This patient?s medication regimen is not safe given their age (79), recent stroke, COPD, obesity, KAREN, and nocturnal hypoxemia ? all of which increase the risk of respiratory depression, falls, sedation, and overdose with opioids and centrally acting muscle relaxants like Soma (carisoprodol). Therefore patient is Soma will be decreased from 350 mg t.i.d. to 350 mg b.i.d. for this month. We will also discontinue the oxycodone cotton 20 mg daily. He will continue OxyContin 30 mg b.i.d.. At next month we will continue weaning down. Will also refer him to pain management for further treatment options and helping us with weaning the patient down off of these medications as I believe this may be calling the patient's falls and recent hospitalization of COPD with acute hypoxia. Patient understands agrees with this plan. Plan Plan Patient was informed and verbally consented to the use of an ambient scribe for clinic note documentation during this visit. 1. Cerebrovascular Accident With Residual Right-Sided Hemiparesis The patient will continue dual antiplatelet therapy and statin for secondary prevention of cerebrovascular events. Physical therapy has been recommended for rehabilitation, and the patient was discharged to short-term rehab for approximately 30 days. 2. Chronic Obstructive Pulmonary Disease (Copd) The patient was treated for acute hypoxic respiratory failure with steroids, nebulizers, and azithromycin, and was successfully weaned off oxygen. He will continue using 2 liters of oxygen at night due to nocturnal hypoxia. 3. Chronic Kidney Disease, Stage 3 The patient is on maintenance furosemide therapy, and his creatinine levels have remained at baseline. 4. Obstructive Sleep Apnea With Nocturnal Hypoxia The patient does not tolerate CPAP and uses 2 liters of oxygen at night. 5. Chronic Back Pain The patient is on a regimen of oxycodone and Soma for chronic back pain management following three back surgeries. There is a plan to reduce narcotic use due to safety concerns, with a potential referral to pain management for alternative therapies. During the visit, we discussed the patient's recent hospital discharge and the management of his chronic conditions, including COPD and chronic back pain. We emphasized the importance of reducing narcotic use due to potential safety concerns and discussed alternative pain management strategies, including referral to pain management. The patient was informed about the continuation of dual antiplatelet therapy and statin for secondary prevention of cerebrovascular events. Orders: Referrals Pain Management Referral G89.29 - Other chronic pain, M54.9 - Dorsalgia, unspecified Medications: New carisoprodol 350 mg PO BID 60 tabs 0RF Refilled oxycodone ER (OxyContin) 30 mg PO BID 60 tabs 0RF Patient Instructions: - Continue using 2 liters of oxygen at night as prescribed. - Follow up with physical therapy for rehabilitation as scheduled. - Adhere to prescribed medication regimen, including dual antiplatelet therapy and statin. - Expect a reduction in narcotic medication dosage and discuss alternative pain management options with your healthcare provider.
[2024-11-22 15:06] VITALS: BP 118/65; PULSE 88; RESP 18; TEMP 37.2; O2SAT 93; BMI 34.4
--- OUTSIDE RECORDS SUMMARY | 2024-11-22 15:36 | XMS_ITS | Encounter Summary ---
Author Organization [facility] Address [address] [place] [address] Care Team Providers Care Visual Merchandising Assistant Name Role Phone Physician, No Pcp Primary Care Provider Unavaila ble Encounter Details Date Type Department Care Team (Late st Contact Info) Description 11/11/2024 Lab Requisition [facility] Main Lab [address] [place] [address] Debbie Mccann PA [address] [place] [address] Encounter for other general examination Social History Tobacco Use Types Packs/Day Years Used Date Smoking Tobacco: Never Assessed Sex and Gender Information Value Date Recorded Sex Assigned at Not on file Legal Sex Male 8:54 PM EST Gender Identity Not on file Sexual Orientation Not on file documented as of this encounter Plan of Treatment Not on file documented as of this encounter Procedures Procedure Name Priority Date/Time Associated Diagnosis Comments HEMOGLOBIN A1C Routine 11/11/2024 5:59 AM EDT Encounter for other general examination documented in this encounter Results * (ABNORMAL) Hemoglobin A1c (11/11/2024 5:59 AM EDT) Hemoglobin A1C 6.6(H) <6.5 % LAB CHEMISTRY METHOD 11/12/2024 11:13 AM EDT [facility] Mean Bld Glu Estim. 143 mg/dL LAB CHEMISTRY METHOD 11/12/2024 11:13 AM EDT [facility] Blood Venous blood specimen / Unknown Venipuncture / Unknown 11/11/2024 5:59 AM EDT 11/11/2024 9:57 AM EDT us Debbie SALGUERO LAB BLOOD ORDERABLES Final Resul t [facility] [address] [place] [address], documented in this encounter Visit Diagnoses Diagnosis Encounter for other general examination documented in this encounter Care Teams Visual Merchandising Assistant Relationship Specialty Start Date End Date Physician, No Pcp PCP - General 11/10/24 documented as of this encounter
--- OUTSIDE RECORDS SUMMARY | 2024-11-22 15:36 | XMS_ITS | Encounter Summary ---
Author Organization [employer] Address [address] [place] [address] Care Team Providers Care Bar Tacker Name Role Phone Unavailable Primary Care Provider Unavailabl e Reason for Visit * Reason Onset Date Comments Hospital Follow-up 11/20/2024 Encounter Details Date Type Department Care Team (Late st Contact Info) Description 11/20/2024 Telephone [facility] [address], [place] [phone] Savanah Avina PharmD [address], [place] [phone] Hospital Follow-up Social History Tobacco Use Types Packs/Day Years Used Date Smoking Tobacco: Never Assessed Sex and Gender Information Value Date Recorded Sex Assigned at Male 11/17/2024 2:22 PM EDT Legal Sex Male 1:45 PM EDT Gender Identity Male 11/17/2024 2:22 PM EDT Sexual Orientation Don't know 11/17/2024 2: 22 PM EDT documented as of this encounter Miscellaneous Notes * Telephone Encounter - Cari Neal RN - 11/20/2024 12:15 PM EDT TC to pt . Name and confirmed. Pt will be leaving rehab today and can make appt tomorrow. * Telephone Encounter - Savanah Avina PharmD - 11/20/2024 11:47 AM EDT Per TC patient will not be home until , please follow up on cancel/rescheduling HDF scheduled for tomorrow 11/21/24. Thank you. documented in this encounter Plan of Treatment Not on file documented as of this encounter Visit Diagnoses Not on filedocumented in this encounter
--- OUTSIDE RECORDS SUMMARY | 2024-11-22 15:36 | XMS_ITS | Encounter Summary ---
Author Organization [facility] Address [address] [place] [address] Phone Care Team Providers Care [employer] Solutions Consultant Name Role Phone Mj Bonilla MD Primary Care Provider [phone] Encounter Details Date Type Department Care Team (Late st Contact Info) Description 08/25/2022 Telephone [facility] [address] [place] [address] Caty Krishna Social History Tobacco Use [...] on filedocumented in this encounter Care Teams [employer] Consultant Relationship Specialty Start Date End Date Mj Bonilla MD [address] [place] [address] PCP - General 05/06/20 documented as of this encounter
== END 2024-11-22 15:47 | disposition home or self-care (01) ==
LOC: HO.HMCSH 14:53
PROVIDERS: PCP Internal Medicine; Visit Provider Physician Assistant Medical
DX: I63.9 Cerebral infarction, unspecified (principal); J44.9 Chronic obstructive pulmonary disease, unspecified; N18.30 Chronic kidney disease, stage 3 unspecified; Z09 Encounter for follow-up examination after completed treatment for conditions other than malignant neoplasm; G47.33 Obstructive sleep apnea (adult) (pediatric); M54.9 Dorsalgia, unspecified; G89.29 Other chronic pain

== ENCOUNTER → 2024-11-22 14:53 | Outpatient (BNVA) | payer MEDICARE, MEDICAID, SELFPAY | PROVIDERS: PCP Internal Medicine; Visit Provider Physician Assistant Medical | DX: Z09 Encounter for follow-up examination after completed treatment for conditions other than malignant neoplasm (principal); I63.9 Cerebral infarction, unspecified; J44.9 Chronic obstructive pulmonary disease, unspecified; N18.30 Chronic kidney disease, stage 3 unspecified; G47.33 Obstructive sleep apnea (adult) (pediatric); M54.9 Dorsalgia, unspecified; G89.29 Other chronic pain | CPT/HCPCS: 96127; 99212 ==

== ENCOUNTER 2024-12-01 01:41 | Emergency (ER) | payer MEDICARE, MEDICAID, SELFPAY ==
--- OUTSIDE RECORDS SUMMARY | 2004-11-21 07:15 | XMS_ITS | Continuity of Care Document ---
Author Name [facility] Organization [facility] Care Team Providers Care Occupational Therapist Rehab Manager Name Role Phone [facility] Unavailable Unavailable Social History Combined list of [...]
--- NOTE | ~2024-12-01 | CT_ITS ---
CLINICAL HISTORY: diffuse abd pain, worse LUQ, low suspicion sbo CT abdomen and pelvis with contrast Comparison: 03/26/2023 Findings: Mild bibasilar lung atelectasis/scarring. No significant change in 2 bibasilar lung nodules measuring up to 13 mm. Atherosclerotic calcifications. 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 Ectatic left common iliac artery measuring up to 20 mm in AP dimension versus 19 mm previously. Distended gallbladder. Spleen, adrenals, and liver are unremarkable. Prominent prostate measuring 42 mm in width. Too small to characterize tiny splenic hypodensity. Pancreatic fatty infiltration. Too small to characterize bilateral renal hypodensities. Small number of small bilateral nonobstructive renal stones. Redemonstration of moderately atrophied right kidney and duplicated left renal collecting system. Distended urinary bladder without wall thickening. Subtle pericholecystic fat stranding cannot be excluded. Clinical +/-UA correlation to rule out possible cystitis recommended. Yyhv-lt-gfdltyek colonic stool. No bowel obstruction. Unremarkable appendix. New mild presacral and posterior perirectal edema. Although not likely, correlate clinically for possible proctitis. Colonic diverticulosis without diverticulitis. New chronic appearing gkio-ui-oncnfwgy compression fracture of the T12 superior endplate. Correlate clinically for focal tenderness. Otherwise no acute fracture. IMPRESSION: 1. Distended urinary bladder without wall thickening. Subtle pericholecystic fat stranding cannot be excluded. Clinical +/-UA correlation to rule out possible cystitis recommended. 2. New mild presacral and posterior perirectal edema. Although not likely, correlate clinically for possible proctitis. 3. New chronic appearing ffcb-mr-lmuxeomi compression fracture of the T12 superior endplate. Correlate clinically for focal tenderness. This document has been electronically signed by: Dione Downing MD on 12/01/2024 07:04:32
--- NOTE | ~2024-12-01 | XR_ITS ---
CLINICAL HISTORY: difficulty breathing 1 view chest x-ray Comparison: CR/SR - XR CHEST 1 VIEW - 11/06/24 14:14 EDT Findings: Bilateral reticular opacities, interstitial edema or infiltrate versus chronic interstitial lung change. Of Heart size is normal. No acute fracture. IMPRESSION: 1. No acute findings. This document has been electronically signed by: Les Gill MD, PHD on 12/01/2024 04:18:39
[2024-12-01 01:48] VITALS: BP 127/72; PULSE 97; O2SAT 94
[2024-12-01 01:55] VITALS: BP 132/89; PULSE 92; RESP 20; TEMP 36.9; O2SAT 93; BMI 33.2
[2024-12-01 02:03] VITALS: PULSE 87; RESP 18; O2SAT 97
[2024-12-01] MEDS: Albuterol Sulfate 90 MCG 8 GM INHALER 8 PUFF INHALE (02:03)
--- NOTE | 2024-12-01 02:11 | ECG_ITS ---
Test Reason : ABDOMINAL PAIN Blood Pressure : */* mmHG Vent. Rate : 92 BPM Atrial Rate : 92 BPM P-R Int : 190 ms QRS Dur : 74 ms QT Int : 378 ms P-R-T Axes : 43 5 31 degrees QTcB Int : 467 ms Normal sinus rhythm Low voltage QRS Borderline ECG When compared with ECG of 06-Nov-2024 13:45, Criteria for Septal infarct are no longer Present Referred By: Generic ED Physician Electronically Signed By: JAIDA RUGGIERO
--- OUTSIDE RECORDS SUMMARY | 2024-12-01 02:19 | XMS_ITS | Encounter Summary ---
Author Organization [facility] Address [address] [place] [address] Phone Care Team Providers Care Manager Test Name Role Phone Mj Bonilla MD Primary Care Provider [phone] Encounter Details Date Type Department Care Team (Late st Contact Info) Description 08/25/2022 Telephone [facility] [address] [place] [address] Caty Krishna Social History Tobacco Use [...] on filedocumented in this encounter Care Teams Manager Test Relationship Specialty Start Date End Date Mj Bonilla MD [address] [place] [address] PCP - General 05/06/20 documented as of this encounter
--- OUTSIDE RECORDS SUMMARY | 2024-12-01 02:19 | XMS_ITS | Encounter Summary ---
Author Organization [facility] Address [address] [place] [address] Care Team Providers Care Heel Edge Inker Machine Name Role Phone Physician, No Pcp Primary Care Provider Unavaila ble Encounter Details Date Type Department Care Team (Late st Contact Info) Description 11/11/2024 Lab Requisition [facility] - Main Lab [address] [facility] [address] [place] [address] Debbie Mccann PA [address] [place] [address] Encounter for other general examination Social History [...] LAB CHEMISTRY METHOD 11/12/2024 11:13 AM EDT [facility] Mean Bld Glu Estim. 143 mg/dL LAB CHEMISTRY METHOD 11/12/2024 11:13 AM EDT [facility] Blood Venous blood specimen / Unknown Venipuncture / Unknown 11/11/2024 5:59 AM EDT 11/11/2024 9:57 AM EDT us Debbie SALGUERO LAB BLOOD ORDERABLES Final Resul t [facility] ([facility]) [facility] LAB [address] [place] [address], documented in this encounter Visit Diagnoses Diagnosis Encounter for other general examination documented in this encounter Care Teams Heel Edge Inker Machine Relationship Specialty Start Date End Date Physician, No Pcp PCP - General 11/10/24 documented as of this encounter
--- OUTSIDE RECORDS SUMMARY | 2024-12-01 02:19 | XMS_ITS | Clinical Summary ---
Author Organization [employer] Address [address] [place] [address] Care Team Providers Care Cleaner Laboratory Equipment Name Role Phone Unavailable Primary Care Provider Unavailabl e Medications allopurinol (Zyloprim) 100 MG tablet Take 2 tablets by mouth Once per day. 1 Active aspirin 81 MG EC tablet Take 1 tablet by mouth Once per day. 3 Active carisoprodol (Soma) 350 MG tablet Take 2 tablets by mouth 3 times daily. Active carvedilol (Coreg) 6.25 MG tablet Take 1 tablet by mouth 2 times daily. 3 Active clopidogrel (Plavix) 75 MG tablet Take 1 tablet by mouth Once per day. 3 Active Farxiga 10 MG Take 1 tablet by mouth Once per day. 5 Active Trelegy Ellipta 100-62.5-25 MCG/ACT aerosol powder Take 1 puff by mouth 1 (one) time each day at the same time. Active furosemide (Lasix) 20 MG tablet Take 1 tablet by mouth Once per day. 5 Active ipratropium-albuter ol (Duo-Neb) 0.5-2.5 mg/3 mL nebulizer solution Inhale 3 mL every 6 (six) hours if needed for wheezing. 5 Active ondansetron ODT (Zofran-ODT) 4 MG disintegrating tablet Take 1 tablet by mouth every 8 (eight) hours if needed for nausea. 3 Active oxyCODONE ER (OxyCONTIN) 20 MG 12 hr tablet Take 1 tablet by mouth at bedtime. 2 Active OxyCONTIN 30 MG 12 hr tablet Take 1 tablet by mouth 2 times daily. 1 Active Encounters Date Type Department Care Team Description 11/23/[address] [address] Catrachito Price MD Appointment Request 11/21/2024 Telephone [facility] [address] [place] [address] Viki Rojas MD No Show 11/20/[address] [address] Savanah Avina PharmD Hospital Follow-up 11/20/2024 Telephone [facility] [address] [place] [address] Sridevi Bourne MA Televisit CONTINUOUS IMPROVEMENT LEAD 11/20/2024 Travel 11/14/2024 Patient Outreach [address] [address] Viki Rojas MD Transition Of Care (Tcm) (HDF- is already scheduled) 11/14/2024 Patient Outreach [address] [address] Catrachito Price MD Transition Of Care (Tcm) (HDF- Unscheduled - (already has a HDF appt) ) 11/14/2024 Telephone [facility] [address] [place] [address] Jhonathan Valles MD Hospital Follow-up 11/01/2024 Telephone [facility] [address] [place] [address] Jhonathan Valles MD Hospital Follow-up 11/01/2024 Patient Outreach [facility] [address] [place] [address] Jhonathan Valles MD Transition Of Care (Tcm) (HDF/CONTINUOUS IMPROVEMENT LEAD Combined.) from Last 3 Months Immunizations Immunization Administration Dates Next Due INFLUENZA INJECTABLE QUADRIV ALANT CCIIV4 MDCK Multi-dose vial 01/10/2020,01/09/2019 Influenza injectable quadriv alent IIV4 with preservative 01/22/2023,02/06/2022,01/09/2021,01/20,02/03/2017 Influenza, IIV3, injectable 01/20/2024, 6 Influenza, Unspecified 01/31/2015 Pneumococcal Polysaccharide PPSV23 07/27/2013 Social History Tobacco Use Types Packs/Day Years Used Date Smoking Tobacco: Never Assessed Sex and Gender Information Value Date Recorded Sex Assigned at Male 11/17/2024 2:22 PM EDT Legal Sex Male 1:45 PM EDT Gender Identity Male 11/17/2024 2:22 PM EDT Sexual Orientation Don't know 11/17/2024 2: 22 PM EDT Plan of Treatment Health Maintenance Due Date Last Done Comments Depression Screening 1945 Lipid Panel 1947 SDOH Screening 1947 Alcohol/Substance Use Screening 1959 Tobacco Screening 1959 Hepatitis C Screening 1965 DTaP/Tdap/Td Vaccines (1 - Tdap) 1966 Zoster Vaccines (1 of 2) 1997 Pneumococcal Vaccine: 50+ Years (2 of 2 - PCV) 07/27/2014 07/27/2013 RSV Patients and Patients Aged 60 years or older (1 - 1-dose 75+ series) 2022 COVID-19 Vaccine ( - season) 2023 07/28/2021, 02/27/2021, 08/12/2020, Additional history exists Influenza Vaccine (#1) 2024 , 01/22/2023, 02/06/2022, Additional history exists HIB Vaccines Aged [...] patient's age to complete this topic Insurance MEDICARE [facility]
--- NOTE | 2024-12-01 02:27 | ED.ABDPAIN ---
HPI - Abdominal Pain General Chief Complaint: Abdominal Pain Stated Complaint: ABD Pain / SOB Time Seen by Provider: 12/01/24 02:16 Source: patient and EMS Mode of arrival: EMS Limitations: no limitations History of Present Illness ED Provider: Dr. Candida Shankar HPI narrative: Patient comes to the emergency room via ambulance from home. According to the patient, he had the sudden onset of left upper abdominal pain and difficulty breathing. Patient reports that he woke up from sleep with this pain. Patient states that he had a bit of left upper quadrant abdominal pressure, family gave him a dose of aspirin and then EMS gave him a DuoNeb. Patient's oxygen saturation has been in the present Related Data Home Medications ?Medication ?Instructions ?Recorded ?Confirmed allopurinol 100 mg tablet 200 mg PO DAILY 11/09/20 11/06/24 furosemide 20 mg tablet 20 mg PO DAILY 08/19/22 11/06/24 omega 4-vtw-inz-fish oil 1,000 mg 1 cap PO DAILY 12/09/22 11/06/24 (120 mg-180 mg) capsule (Fish Oil) clopidogrel 75 mg tablet 75 mg PO DAILY 03/26/23 11/06/24 fluticasone fur. 100 mcg-umeclid 1 ea inhalation DAILY 10/24/24 11/06/24 62.5 mcg-vilant 25 mcg inhalat.powder (Trelegy Ellipta) Previous Rx's ?Medication ?Instructions ?Recorded aspirin 81 mg tablet,delayed 81 mg PO DAILY #30 tabs 11/11/22 release ipratropium 0.5 mg-albuterol 3 mg 3 ml inhalation Q6H PRN wheezing 05/10/24 (2.5 mg base)/3 mL nebulization #180 mL soln carvedilol 6.25 mg tablet 6.25 mg PO BID #180 tabs 06/13/24 dapagliflozin propanediol 10 mg 10 mg PO DAILY 90 days #90 tabs 10/09/24 tablet (Farxiga) prednisone 20 mg tablet 40 mg (2 x 20 mg) PO DAILY #10 tabs 11/09/24 carisoprodol 350 mg tablet 350 mg PO BID #60 tabs 11/22/24 oxycodone 30 mg tablet,crush 30 mg PO BID #60 tabs 11/22/24 resistant,extended release 12 hr (OxyContin) levofloxacin 250 mg tablet 250 mg PO DAILY 5 days #5 tabs 12/01/24 metronidazole 500 mg tablet 500 mg PO TID 5 days #15 tabs 12/01/24 Allergies Allergy/AdvReac Type Severity Reaction Status Date / Time adhesive Allergy Severe Rash Verified 12/01/24 02:05 morphine (MORPHINE) Allergy Severe NAUSEA Verified 12/01/24 02:05 codeine (CODEINE) Allergy Intermediate RASH Verified 12/01/24 02:05 ibuprofen (From MOTRIN) Allergy Unknown told to Verified 12/01/24 02:05 avoid due to kidneys Review of Systems Review of Systems Constitutional : No Weight loss, No Fever, No Chills, No Night Sweats, No Fatigue, No Malaise ENT/Mouth : No Hearing loss, No Ear Pain, No Nasal Congestion, No Sinus Pain, No Hoarseness, No sore throat, No Rhinorrhea, No Swallowing Difficulty Eyes: No Eye Pain, No Swelling, No Redness, No Foreign Body, No Discharge, No Vision Changes Cardiovascular : Complaining of left-sided abdominal pain/chest pain but mostly abdominal, denies palpitation Respiratory : No Cough, No Sputum, complaining of wheezing, chest tightness and shortness of breath Gastrointestinal : No Nausea, No Vomiting, No Diarrhea, No Constipation, complaining of left upper quadrant pain Genitourinary : no irregular bleeding, No Dysuria, No Urinary Frequency, No Hematuria, No Urinary Incontinence, No Urgency, No Flank Pain, No Urinary Flow Changes, No Hesitancy Musculoskeletal : No joint pain, No Myalgias, No Joint Swelling Skin : No Skin Lesions, No rash Neuro : No Weakness, No Numbness, No Paresthesias, No Loss of Consciousness, No Dizziness, No Headache Psych : No Anxiety/Panic, No Depression, No SI/HI/AH/VH, No Social Issues, Heme/Lymph: No Bruising, No Bleeding,No Lymphadenopathy Endocrine : No Polyuria, No Polydipsia, No Temperature Intolerance [facility] Past Medical History Medical History Hospital discharge follow-up Acute CVA (cerebrovascular accident) Diabetes mellitus Type 2 NV (myocardial infarction) Carotid stenosis, right TIA (transient ischemic attack) Chronic renal failure (CRF), stage 3 (moderate) LBBB (left bundle branch block) Cardiomyopathy CHF (congestive heart failure) Chronic back pain Sleep apnea Oxygen dependent Lung nodule CVA (cerebral vascular accident) Surgical History History of lithotripsy History of vasectomy History of back surgery Family History Family History Father Cirrhosis Mother Myocardial infarction Enlarged heart Sister No problems noted. Sister No problems noted. Social History Social History Household Members: Family Housing: House Do you presently have visiting nurse or other home services: No Alcohol intake: former Patient Tobacco Use Status: Former Tobacco user Tobacco use type: Cigarette Years Smoked: ~20 Quit 36 years ago Smoked in Last 30 Days: No Use of substances other than those prescribed or required for medical reasons: No Advance Directives: Yes Advance Directives on File: Yes Advance Directives Date on File: 03/27/23 service: No Current occupational status: retired Cognitive needs: Yes (walker/cane) Hearing needs: Yes (hearing loss does not wear hearing aids) Vision needs: Yes (reading glasses) Physical Exam ED Exam Exam: Appearance: Alert. Oriented X3. No acute distress. Eyes: Pupils equal, round and reactive to light. ENT: Pharynx normal. Neck: Normal inspection. Neck supple. No lymph nodes noted. No crepitus CVS: Normal heart rate and rhythm. Pulses normal. Normal S1 and S2 Respiratory: No respiratory distress. Decreased breath sounds bilaterally, wheezing Abdomen: Soft and nontender. No rigidity. No distention. Skin: Skin warm and dry. Normal skin color. Normal skin turgor. Extremities: No lower extremity edema. No Lacerations. No Rash Neuro: Oriented X 3. No motor deficit. No sensory deficit. Moving all extremities. No slurred speech. CN 2 through 12 grossly intact Psych: calm, cooperative, normal affect Vital Signs: Vital Signs - 24 hr 12/01/24 01:55 12/01/24 02:03 12/01/24 05:42 Temperature 98.4 F Pulse Rate 92 87 91 Respiratory Rate 20 18 18 Blood Pressure 132/89 146/75 H Pulse Oximetry 93 93 Oxygen Delivery Method Room Air Room Air BMI result Body Mass Index 33.2 Course Course Course Narrative: Patient reporting left upper quadrant abdominal fullness and discomfort. No chest pain, complaining of wheezing, chest tightness shortness of breath. Patient states that he uses O2 when he sleeps, patient states that after the DuoNeb that EMS gave him he is breathing a bit better. All of patient's labs and imaging pending Medical Decision Making Medical Decision Making MDM Narrative: My interpretation of labs: Patient's hematology is at baseline, no significant abnormality in patient's blood gases, chemistry within normal limits, normal creatinine, normal LFTs, normal troponin, BNP slightly elevated at 114. No signs of fluid overload, lipase normal. Patient's urinalysis has trace leukocyte esterase, no bacteria, no nitrites, no urinary symptoms. Serology negative for influenza RSV and COVID Chest x-ray does not show any acute abnormality. The patient's complaints from the abdominal pain, CT scan of the abdomen pending. Overall, patient states that he does feel better. No chest pain or shortness of breath or significant abdominal pain at this time. CT scan pending, sign-out given to my colleague Dr. Nj Mauro MD,12/01/24 at 08:24 I assumed care of this patient from my colleague, Dr. Shankar at 07:00 hours. The patient is a 79-year-old male with a history of stroke, COPD, chronic kidney disease, cardiomyopathy who presents emergency department for evaluation of lower abdominal pain and shortness of breath. Patient had recent stroke 10/24/2024 and was hospitalized here, had a 2nd hospitalization at [facility] just got a rehab 1 week prior. While he was in rehab he was treated for colitis. Patient states that he has been constipated over the last 2 days. This morning he woke up with severe left lower quadrant pain and shortness of breath. Patient received DuoNeb in route, albuterol inhaler here and Solu-Medrol for possible COPD exacerbation. Patient's laboratory evaluation revealed an elevated BUN of 19 with a normal creatinine of 1.23. LFTs were normal except for an elevated alk-phos of 150. BNP was elevated 114. Chest x-ray was unremarkable. CT scan of the abdomen pelvis with IV contrast reveal possible proctitis. There were other findings which I do not think are related to the patient's presentation. Patient's exam did reveal clear lungs and mild to moderate left lower quadrant tenderness. Given his constipation and lower abdominal pain and I will treat him for proctitis with Levaquin 25 mg once a day for 5 days and metronidazole 500 mg 3 times a day for 5 days. He was given his 1st dose of these medication orally here in the emergency department. Patient was advised to take Colace 100 mg twice a day for 1 month and Senokot 2 pills twice a day for 4 days for constipation. He was given printed and verbal instructions and discharged home. Differential Diagnosis Differential Diagnoses: The differential diagnosis associated with the presentation includes (Chronic lung disease exacerbation, asthma, SBO) Admission/Observation Consideration of admission/observation: Escalation of care including admission/observation considered (Given patient's age and symptoms, observation was considered) Lab Data MDM Lab Attestation statement: I reviewed the patient's lab results. 12/01/24 02:41 12/01/24 02:41 Labs: Lab Results 12/01/24 12/01/24 12/01/24 Range/Units 02:41 02:54 02:58 WBC 6.5 (4.8-10.8) X10*3/uL RBC 3.88 L (4.60-5.80) X10*6/uL Hgb 12.3 L (14.0-18.0) g/dl Hct 36.2 L (42.0-52.0) % MCV 93.3 (80.0-98.0) fL MCH 31.7 (27.0-33.0) pg MCHC 34.0 (31.0-36.0) g/dl RDW 14.3 (11.0-16.0) % Plt Count 241 (160-400) X10*3/uL MPV 10.1 (9.4-12.4) fL Immature Gran % (Auto) 0.8 H (0.0-0.4) % Neut % (Auto) 56.9 (45-73) % Lymph % (Auto) 24.3 (20-40) % Tompkins % (Auto) 9.7 (2-11) % Eos % (Auto) 7.7 H (0-4) % Baso % (Auto) 0.6 (0-2) % Lymph # (Auto) 1.6 (1.2-4.9) X10*3/uL Tompkins # (Auto) 0.6 (0.1-1.2) X10*3/uL Eos # (Auto) 0.5 H (0.0-0.4) X10*3/uL Baso # (Auto) 0.0 (0.0-0.2) X10*3/uL Abs Immat Gran (auto) 0.05 H (0.00-0.03) X10*3/uL Absolute Neuts (auto) 3.7 (2.0-8.3) x10*3/uL Absolute Nucleated RBC 0.000 (0.0-0.012) X10*3/uL Nucleated RBC % (auto) 0.0 (0.0-0.2) /100WBC VBG pH 7.46 H (7.32-7.43) VBG pCO2 41 mmHg VBG pO2 71 mmHg VBG HCO3 29 H (22-26) mmol/L VBG O2 Saturation 93.0 % VBG Base Excess 5.5 mmol/L Sodium 139 (135-145) mmol/L Potassium 3.9 (3.3-5.1) mmol/L Chloride 105 (96-108) mmol/L Carbon Dioxide 24 (22-29) mmol/L Anion Gap 14 (12-20) BUN 19 H (9-16) mg/dL Creatinine 1.23 (0.5-1.4) mg/dL Estim Creat Clear Calc 64.7 Estimated GFR 57 Random Glucose 116 H (60-115) mg/dL Lactic Acid 1.6 (0.5-2.0) mmol/L Calcium 8.4 D (8.4-10.2) mg/dL Total Bilirubin 0.3 (0.0-1.0) mg/dL Direct Bilirubin 0.1 (0.0-0.5) mg/dL AST 22 (5-37) U/L ALT 9 (0-40) U/L Alkaline Phosphatase 150 H (39-117) U/L Troponin I High Sens 20.0 (<3.5-35.0) ng/L B-Natriuretic Peptide 114 H (<100) pg/mL Total Protein 6.3 L (6.5-8.0) g/dL Albumin 3.5 (3.5-5.0) g/dL Lipase 46 (8-78) U/L Urine Color Urine Appearance Urine pH (5.0-9.0) Ur Specific [place] (1.005-1.025) Urine Protein (Neg-Trace) mg/dL Urine Glucose (UA) (Negative) mg/dL Urine Ketones (Negative) mg/dL Urine Blood (Negative) Urine Nitrite (Negative) Ur Leukocyte Esterase (Negative) Urine RBC (0-2) /HPF Urine WBC (0-5) /HPF Ur Squamous Epith Cells (0-2) /HPF Urine Bacteria (None Seen) Hyaline Casts (0-2) /LPF Influenza Type A (PCR) NEGATIVE (Negative) Influenza Type B (PCR) NEGATIVE (Negative) RSV RNA Qual (PCR) NEGATIVE (Negative) SARS-CoV-2 RNA (RT-PCR) NEGATIVE (Negative) 12/01/24 Range/Units 04:43 WBC (4.8-10.8) X10*3/uL RBC (4.60-5.80) X10*6/uL Hgb (14.0-18.0) g/dl Hct (42.0-52.0) % MCV (80.0-98.0) fL MCH (27.0-33.0) pg MCHC (31.0-36.0) g/dl RDW (11.0-16.0) % Plt Count (160-400) X10*3/uL MPV (9.4-12.4) fL Immature Gran % (Auto) (0.0-0.4) % Neut % (Auto) (45-73) % Lymph % (Auto) (20-40) % Tompkins % (Auto) (2-11) % Eos % (Auto) (0-4) % Baso % (Auto) (0-2) % Lymph # (Auto) (1.2-4.9) X10*3/uL Tompkins # (Auto) (0.1-1.2) X10*3/uL Eos # (Auto) (0.0-0.4) X10*3/uL Baso # (Auto) (0.0-0.2) X10*3/uL Abs Immat Gran (auto) (0.00-0.03) X10*3/uL Absolute Neuts (auto) (2.0-8.3) x10*3/uL Absolute Nucleated RBC (0.0-0.012) X10*3/uL Nucleated RBC % (auto) (0.0-0.2) /100WBC VBG pH (7.32-7.43) VBG pCO2 mmHg VBG pO2 mmHg VBG HCO3 (22-26) mmol/L VBG O2 Saturation % VBG Base Excess mmol/L Sodium (135-145) mmol/L Potassium (3.3-5.1) mmol/L Chloride (96-108) mmol/L Carbon Dioxide (22-29) mmol/L Anion Gap (12-20) BUN (9-16) mg/dL Creatinine (0.5-1.4) mg/dL Estim Creat Clear Calc Estimated GFR Random Glucose (60-115) mg/dL Lactic Acid (0.5-2.0) mmol/L Calcium (8.4-10.2) mg/dL Total Bilirubin (0.0-1.0) mg/dL Direct Bilirubin (0.0-0.5) mg/dL AST (5-37) U/L ALT (0-40) U/L Alkaline Phosphatase (39-117) U/L Troponin I High Sens (<3.5-35.0) ng/L B-Natriuretic Peptide (<100) pg/mL Total Protein (6.5-8.0) g/dL Albumin (3.5-5.0) g/dL Lipase (8-78) U/L Urine Color Yellow Urine Appearance Clear Urine pH 6.0 (5.0-9.0) Ur Specific [place] >= 1.030 H (1.005-1.025) Urine Protein Negative (Neg-Trace) mg/dL Urine Glucose (UA) >=1000 H (Negative) mg/dL Urine Ketones Negative (Negative) mg/dL Urine Blood Trace H (Negative) Urine Nitrite Negative (Negative) Ur Leukocyte Esterase Trace H (Negative) Urine RBC 3-5 H (0-2) /HPF Urine WBC 0-5 (0-5) /HPF Ur Squamous Epith Cells 0-2 (0-2) /HPF Urine Bacteria None Seen (None Seen) Hyaline Casts 0-2 (0-2) /LPF Influenza Type A (PCR) (Negative) Influenza Type B (PCR) (Negative) RSV RNA Qual (PCR) (Negative) SARS-CoV-2 RNA (RT-PCR) (Negative) Independent Interpretation I performed an independent interpretation of an: Plain X-Ray Radiology Impression Discussion of test interpretation with radiology: I have reviewed the radiologist's reading. Radiologist Impression: Bilateral reticular opacities, interstitial edema or infiltrate versus chronic interstitial lung change. Of Heart size is normal. No acute fracture. IMPRESSION: 1. No acute findings. Medications Administered Discontinued Medications Generic Name Dose Route Start Last Admin Trade Name Freq PRN Reason Stop Dose Admin Albuterol Sulfate 8 puff 12/01/24 01:54 12/01/24 02:03 Albuterol Sulfate 90 Mcg 8 Gm Inhaler INHALE 12/01/24 01:55 8 puff ONCE ONE Administration Magnesium Sulfate 2 gm in 50 mls @ 25 mls/hr 12/01/24 02:24 12/01/24 05:09 Magnesium Sulfate/H2o IV 12/01/24 04:23 Infused ONCE ONE Infusion Iohexol 99 ml 12/01/24 04:33 12/01/24 04:34 Iohexol 350 Mg/Ml 100 Ml Infus..Btl IV 12/01/24 04:34 99 ml ONCE ONE Administration Methylprednisolone Sodium Succinate 125 mg 12/01/24 02:24 12/01/24 03:00 Methylprednisolone Sod Succ 125 Mg/2 Ml Vial IVPUSH 12/01/24 02:25 125 mg ONCE ONE Administration Critical Care Time Critical Care Time Critical Care Time: Yes Total Critical Care Time: 35 Attestation: I have personally provided critical care time. Time includes review of lab data, radiology results, discussion with consultants, and monitoring for potential decompensation. Intervention performed as documented. Discharge Plan Discharge Clinical Impression: Asthma exacerbation in COPD, Acute proctitis Patient Disposition: Home, Self-Care Instructions: Proctitis (ED), COPD (Chronic Obstructive Pulmonary Disease) (ED) Additional Instructions: Your chest x-ray was normal. Your CT scan of the abdomen pelvis perirectal edema which is consistent with proctitis (inflammation of the lower part of the colon/rectum) I am prescribing 2 antibiotics for your proctitis Levaquin (levofloxacin) 250 mg pills, 1 pill daily for 5 days. You received your 1st dose this morning take your next dose tomorrow morning. Flagyl (metronidazole) 500 mg pills, 1 pill 3 times a day (every 6 hours while awake) for 5 days. You were given your 1st dose today. Take your next dose 6 hours from now. Proctitis can be due to constipation or proctitis can cause constipation Take the stool softener, Colace 100 mg pills, 1 pill twice a day for 1 month. Take the laxative, Senokot 2 pills twice a day for 4 days. Continue taking your other medications as prescribed Follow-up with your doctor in 2 days. Please return to the emergency department if your symptoms get worse or if you develop any symptoms that are concerning to you. CT scan abdomen pelvis with IV contrast IMPRESSION: 1. Distended urinary bladder without wall thickening. Subtle pericholecystic fat stranding cannot be excluded. Clinical +/-UA correlation to rule out possible cystitis recommended. 2. New mild presacral and posterior perirectal edema. Although not likely, correlate clinically for possible proctitis. 3. New chronic appearing [id number] compression fracture of the T12 superior endplate. Correlate clinically for focal tenderness. This document has been electronically signed by: Dione Downing MD on 12/01/2024 07:04:32 Prescriptions: New levofloxacin 250 mg tablet 250 mg PO DAILY 5 Days Qty: 5 0RF metronidazole 500 mg tablet 500 mg PO TID 5 Days Qty: 15 0RF No Action ipratropium-albuterol 0.5 mg-3 mg(2.5 mg base)/3 mL solution for nebulization 3 ml inhalation Q6H PRN (Reason: wheezing) Qty: 180 4RF carvedilol 6.25 mg tablet 6.25 mg PO BID Qty: 180 3RF Farxiga 10 mg tablet 10 mg PO DAILY 90 Days Qty: 90 3RF allopurinol 100 mg tablet 200 mg PO DAILY omega 1-lkm-yqq-fish oil [Fish Oil] 1,000 mg (120 mg-180 mg) Capsule 1 cap PO DAILY clopidogrel 75 mg tablet 75 mg PO DAILY Trelegy Ellipta 100-62.5-25 mcg blister with device 1 ea INHALATION DAILY aspirin 81 mg Tablet,Delayed Release (Dr/Ec) 81 mg PO DAILY Qty: 30 0RF prednisone 20 mg tablet 40 mg PO DAILY Qty: 10 0RF furosemide 20 mg tablet 20 mg PO DAILY oxycodone [OxyContin] 30 mg tablet,oral only,ext.rel.12 hr 30 mg PO BID Qty: 60 0RF carisoprodol 350 mg tablet 350 mg PO BID Qty: 60 0RF Print Language: Maltese
[2024-12-01 02:51] LABS: MANUAL DIFF FLAG NO
--- NOTE | 2024-12-01 02:51 | PC.NURSE ---
RT at bedside, Ventolin 720 mcg administered by RT, O2 Sat 92-95% RA. 20 G IV line established in L AC, labs drawn and sent to lab for precessing, CXR completed. Patient medicated per JUN. Patient reports improvement in LUQ pain from 01/03 to 08/03. Patient currently resting on stretcher bed, not in acute distress, family at bedside.
[2024-12-01 02:56] LABS: Hematocrit 36.2 % (42.0-52.0); Hemoglobin 12.3 g/dl (14.0-18.0); Imm Gran Abs Auto 0.05 X10*3/uL (0.00-0.03); Imm Gran Pct Auto 0.8 % (0.0-0.4); Lymphocytes Absolute Auto 1.6 X10*3/uL (1.2-4.9); Mean Corpuscular HGB Conc 34.0 g/dl (31.0-36.0); Mean Corpuscular Hemoglobin 31.7 pg (27.0-33.0); Mean Corpuscular Volume 93.3 fL (80.0-98.0); NRBC Abs Auto 0.000 X10*3/uL (0.0-0.012); NRBC Pct Auto 0.0 /100WBC (0.0-0.2); Platelet Count 241 X10*3/uL (160-400); Red Blood Count 3.88 X10*6/uL (4.60-5.80); White Blood Count 6.5 X10*3/uL (4.8-10.8)
[2024-12-01 02:59] LABS: VBG HCO3 29 mmol/L (22-26); VBG O2 % Saturation 93.0 %
[2024-12-01] MEDS: Magnesium Sulfate/H2O 2 GM/50 ML PIGGYBACK IV (03:00)
[2024-12-01 03:01] LABS: Venous Blood Gas Refer to POC result
[2024-12-01 03:25] LABS: B Type Natriuretic Peptide 114 pg/mL (<100); Troponin-I High Sensitivity 20.0 ng/L (<3.5-35.0)
[2024-12-01 03:40] LABS: Resp Syncy Virus RNA Qual PCR NEGATIVE (Negative); SARS COV2 PCR INHOUSE NEGATIVE (Negative)
[2024-12-01 03:47] LABS: Alanine Aminotransferase 9 U/L (0-40); Albumin Level 3.5 g/dL (3.5-5.0); Alkaline Phosphatase 150 U/L (39-117); Anion Gap 14 (12-20); Aspartate Amino Transferase 22 U/L (5-37); Blood Urea Nitrogen 19 mg/dL (9-16); Calcium 8.4 mg/dL (8.4-10.2); Carbon Dioxide 24 mmol/L (22-29); Chloride 105 mmol/L (96-108); Creatinine Clr Calc Pharmacy 64.7; Estimated Glomerular Filt Rate 57; Lipase 46 U/L (8-78); Potassium 3.9 mmol/L (3.3-5.1); Sodium 139 mmol/L (135-145); Total Protein 6.3 g/dL (6.5-8.0)
[2024-12-01] MEDS: iohexoL 350 MG/ML 100 ML INFUS..BTL 99 ML IV (04:34)
[2024-12-01 04:51] LABS: Appearance Urine Clear; Glucose Urine UA >=1000 mg/dL (Negative); PH 6.0 (5.0-9.0); Specific Gravity - Urine >= 1.030 (1.005-1.025); UMIC TRIGGER UACC YES
[2024-12-01 05:42] VITALS: BP 146/75; PULSE 91; RESP 18; O2SAT 93
[2024-12-01 09:34] VITALS: BP 146/75; PULSE 91; RESP 18; O2SAT 93
[2024-12-01 09:46] VITALS: BP 146/75; PULSE 91; RESP 18; TEMP 36.8; O2SAT 93
--- OUTSIDE RECORDS SUMMARY | 2025-01-21 20:00 | XMS_ITS | Clinical Summary ---
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 Sales Representative Cash Registers Name Role Phone NEEMA SALGUERO, BENJAMIN Unavailable Unavailable TITA RUCKER, CONCEPCION Unavailable Unavailable Payers Payer Name Policy Type Policy Number Effective Date Expira tion Date MEDICARE - [facility]/[place] - [place] [id number] SELDOM USED PAYER XXXX Problems Condition Name Condition Details Condition Category Status Onset Date Resolution Date Last Treatment Date Treating Clinician Comments CHRONIC OBSTRUCTIVE PULMONARY DISEASE W (ACUTE) EXACERBATION Active 11-09 00:00: 00 Allergies, Adverse Reactions, Alerts Allergy [...] 11-12 00:00: 00 11-28 00:00 :00 No [id number] Per instruc tions THREE TIMES DAILY Per instructio ns THREE TIMES DAILY (route: oral) Med Classific ation: Locomotor System carvedilol 3.125 mg tablet 11-10 00:00: 00 03-15 00:00 :00 No [id number] 1 tablet TWICE DAILY 1 tablet TWICE DAILY (route: oral) Med Classific ation: Cardiovas cular Therapy Agents Jardiance 10 mg tablet 11-10 00:00: 00 03-15 00:00 :00 No [id number] 1 tablet DAILY 1 tablet DAILY (route: oral) Med Classific ation: Endocrine OxyContin 20 mg tablet,david h resistant,e xtended release 11-05 00:00: 00 03-15 00:00 :00 No [id number] Unavailable Per instruc tions EVERY Per instructio ns EVERY (route: oral) Med Classific ation: Analgesic , Anti-infl ammatory or Antipyret ic OxyContin 30 mg tablet,david h resistant,e xtended release 11-05 00:00: 00 03-15 00:00 :00 No [id number] Unavailable Per instruc tions EVERY EVERY Per instructio ns EVERY EVERY (route: oral) Med Classific ation: Analgesic , Anti-infl ammatory or Antipyret ic Ventolin HFA 90 mcg/actuati on aerosol inhaler 10-29 00:00: 00 03-15 00:00 :00 No [id number] Per instruc tions INTO THE LUNGS EVERY 3 HOURS NEEDED Per instructio ns INTO THE LUNGS EVERY 3 HOURS NEEDED (route: inhalation ) Med Classific ation: Respirato ry Therapy Agents lorazepam 1 mg tablet 10-22 00:00: 00 03-15 00:00 :00 No [id number] 1 tablet THREE TIMES DAILY 1 tablet THREE TIMES DAILY (route: oral) Med Classific ation: Central Nervous System Agents carisoprodo l 350 mg tablet 6 00:00: 00 03-15 00:00 :00 No [id number] 1 tablet THREE TIMES DAILY 1 tablet THREE TIMES DAILY (route: oral) Med Classific ation: Locomotor System allopurinol 100 mg tablet 8-05 00:00: 00 03-15 00:00 :00 No [id number] 2 tablet DAILY 2 tablet DAILY (route: oral) Med Classific ation: Gout and Hyperuric emia Therapy aspirin 81 mg tablet,rene yed release 8 00:00: 00 03-15 00:00 :00 No [id number] 1 tablet DAILY 1 tablet DAILY (route: oral) Med Classific ation: Hematolog ical Agents atorvastati n 80 mg tablet 11-28 00:00: 00 03-15 00:00 :00 No [id number] 1 tablet BEDTIME 1 tablet BEDTIME (route: oral) Med Classific ation: Cardiovas cular Therapy Agents cefpodoxime 100 mg tablet 11-28 00:00: 00 12-01 23:59 :00 No [id number] 1 tablet 2 TIMES DAILY 1 tablet 2 TIMES DAILY (route: oral) Med Classific ation: Anti-Infe ctive Agents clopidogrel 75 mg tablet 11-28 00:00: 00 03-15 00:00 :00 No [id number] 1 tablet DAILY 1 tablet DAILY (route: oral) Med Classific ation: Hematolog ical Agents glipizide ER 2.5 mg tablet, extended release 24 hr 11-28 00:00: 00 03-15 00:00 :00 No [id number] 1 tablet 2 TIMES DAILY 1 tablet 2 TIMES DAILY (route: oral) Med Classific ation: Endocrine Mucinex 600 mg tablet, extended release 11-28 00:00: 00 12-07 23:59 :00 No [id number] 1 tablet 2 TIMES DAILY 1 tablet 2 TIMES DAILY (route: oral) Med Classific ation: Respirato ry Therapy Agents omeprazole 20 mg capsule,del ayed release 11-28 00:00: 03-15 00:00 :00 No [id number] 1 capsule DAILY 1 capsule DAILY (route: oral) Med Classific ation: Gastroint estinal Therapy Agents tamsulosin 0.4 mg capsule 11-28 00:00: 00 03-15 00:00 :00 No [id number] 1 capsule DAILY 1 capsule DAILY (route: oral) Med Classific ation: Genitouri nary Therapy torsemide 20 mg tablet 11-28 00:00: 00 03-15 00:00 :00 No [id number] 0.5 tablet DAILY 0.5 tablet DAILY (route: oral) Med Classific ation: Cardiovas cular Therapy Agents OXYGEN 8-05 00:00: 00 10-25 23:59 :00 No [id number] 2 Liter O2 - CONTINUOUS 2 Liter O2 - CONTINUOUS (route: Oxygen) Med Classific ation: Medical Oxygen allopurinol 100 mg tablet 2023-04 00:00: 00 10-25 23:59 :00 No [id number] 2 tablet DAILY 2 tablet DAILY (route: oral) Med Classific ation: Gout and Hyperuric emia Therapy aspirin 81 mg tablet,rene yed release 2023-04 00:00: 00 10-25 23:59 :00 No [id number] 1 tablet DAILY 1 tablet DAILY (route: oral) Med Classific ation: Hematolog ical Agents carisoprodo l 350 mg tablet 2023-04 00:00: 00 10-25 23:59 :00 No [id number] 2 tablet 3 TIMES DAILY 2 tablet 3 TIMES DAILY (route: oral) Med Classific ation: Locomotor System carvedilol 6.25 mg tablet 2023-04 00:00: 00 10-25 23:59 :00 No [id number] 1 tablet 2 TIMES DAILY 1 tablet 2 TIMES DAILY (route: oral) Med Classific ation: Cardiovas cular Therapy Agents clopidogrel 75 mg tablet 2023-04 00:00: 00 10-25 23:59 :00 No [id number] 1 tablet DAILY 1 tablet DAILY (route: oral) Med Classific ation: Hematolog ical Agents Farxiga 10 mg tablet 2023-04 00:00: 00 10-25 23:59 :00 No [id number] 1 tablet DAILY 1 tablet DAILY (route: oral) Med Classific ation: Endocrine Fish Oil 1,000 mg (120 mg-180 mg) capsule 2023-04 00:00: 00 10-25 23:59 :00 No [id number] 1 capsule DAILY 1 capsule DAILY (route: oral) Med Classific ation: Cardiovas cular Therapy Agents furosemide 20 mg tablet 2023-04 00:00: 00 10-25 23:59 :00 No [id number] 1 tablet DAILY 1 tablet DAILY (route: oral) Med Classific ation: Cardiovas cular Therapy Agents glipizide 2.5 mg tablet 2023-04 00:00: 00 10-25 23:59 :00 No [id number] 1 tablet 2 TIMES DAILY 1 tablet 2 TIMES DAILY (route: oral) Med Classific ation: Endocrine lorazepam 1 mg tablet 2023-04 00:00: 00 10-25 23:59 :00 No [id number] 1 tablet 3 TIMES DAILY 1 tablet 3 TIMES DAILY (route: oral) Med Classific ation: Central Nervous System Agents losartan 50 mg tablet 2023-04 00:00: 00 10-25 23:59 :00 No [id number] 1 tablet DAILY 1 tablet DAILY (route: oral) Med Classific ation: Cardiovas cular Therapy Agents omeprazole 20 mg capsule,del ayed release 2023-04 00:00: 00 10-25 23:59 :00 No [id number] 1 capsule DAILY 1 capsule DAILY (route: oral) Med Classific ation: Gastroint estinal Therapy Agents ondansetron HCl 4 mg tablet 2023-04 00:00: 00 10-25 23:59 :00 No [id number] 1 tablet EVERY 8 HOURS 1 tablet EVERY 8 HOURS (route: oral) Med Classific ation: Gastroint estinal Therapy Agents oxycodone 20 mg tablet 2023-04 00:00: 00 10-25 23:59 :00 No [id number] 1 tablet DIRECTED 1 tablet DIRECTED (route: oral) Med Classific ation: Analgesic , Anti-infl ammatory or Antipyret ic OxyContin 30 mg tablet,david h resistant,e xtended release 2023-04 00:00: 00 10-25 23:59 :00 No [id number] 1 tablet 2 TIMES DAILY 1 tablet 2 TIMES DAILY (route: oral) Med Classific ation: Analgesic , Anti-infl ammatory or Antipyret ic simvastatin 40 mg tablet 2024-1 1-20 00:00: 00 10-25 23:59 :00 No [id number] 1 tablet BEDTIME 1 tablet BEDTIME (route: oral) Med Classific ation: Cardiovas cular Therapy Agents Trelegy Ellipta 100 mcg-62.5 mcg-25 mcg powder for inhalation 2023-04 1-20 00:00: 00 10-25 23:59 :00 No [id number] 1 inhalat ion DAILY 1 inhalation DAILY (route: inhalation ) Med Classific ation: Respirato ry Therapy Agents Vital Signs Vital Name Observation Time Observation Value Commen ts Temperature 2024-11-30 12:52:00.000 98.7 [degF] Temperature 2024-11-24 12:43:00.000 97.8 [degF] BMI (%) 2024-11-24 12:43:00.000 33 kg/m2 Height 2024-11-24 12:43:00.000 72 [in_us] Pulse 2024-11-30 12:52:00.000 78 /min Pulse 2024-11-24 12:43:00.000 80 /min O2 Saturation (%) 2024-11-30 12:52:00.000 94 % O2 Saturation (%) 2024-11-24 12:43:00.000 94 % Respirations 2024-11-30 12:52:00.000 22 /min Respirations 2024-11-24 12:43:00.000 16 /min Weight (lbs) 2024-11-24 12:43:00.000 245 [lb_av] Systolic Blood Pressure 2024-11-30 12:52:00.000 114 mm [Hg] Systolic Blood Pressure 2024-11-24 12:43:00.000 105 mm [Hg] Diastolic Blood Pressure 2024-11-30 12:52:00.000 [...] MAINTAIN SITUATIONAL AWARENESS AND WILL NOTIFY CLINICAL CARPENTER INSPECTOR AND PHYSICIAN/PROVIDER WITH ANY CHANGE IN CONDITION. [code = SKILLED NURSE TO PERFORM ENVIRONMENTAL SAFETY RISK ASSESSMENT AND FALL RISK ASSESSMENT AND PROVIDE INSTRUCTION TO IMPLEMENT ENVIRONMENTAL SAFETY AND FALL PREVENTION STRATEGIES THROUGHOUT THE CERTIFICATION PERIOD. SKILLED NURSE WILL MAINTAIN SITUATIONAL AWARENESS AND WILL NOTIFY CLINICAL CARPENTER INSPECTOR AND PHYSICIAN/PROVIDER WITH ANY CHANGE IN CONDITION.] [...] [facility] VISITS MAY BE PERFORMED UTILIZING [employer] DSP SYSTEM TO OPTIMIZE SKILLED SERVICES FURNISHED ON [...] PHYSICAL THERAPIST TO EVALUATE PATIENT FOR PHYSICAL DECONDITIONING ] Future Scheduled Test OCCUPATION AL THERAPIST TO EVALUATE PATIENT FOR PHYSICAL DECONDITIONING [code = OCCUPATIONAL THERAPIST TO EVALUATE PATIENT FOR PHYSICAL DECONDITIONING ] Future Scheduled Test SKILLED NU RSE FOR [...] CVA, RISK FACTORS, AND METHODS TO MANAGE HALFWAY EFFECTS OF CVA. [code = SKILLED NURSE TO INSTRUCT PATIENT/CAREGIVER ON WARNING SIGNS OF CVA, RISK FACTORS, AND METHODS TO MANAGE STORE SALES CONSULTANT EFFECTS OF CVA.] Future Scheduled Test SKILLED NU RSE FOR O/A AND SKILLED TEACHING RELATED TO SIGNS AND SYMPTOMS OF INFECTION AND INFECTION CONTROL MEASURES. [code = SKILLED NURSE FOR O/A AND SKILLED TEACHING RELATED TO SIGNS AND SYMPTOMS OF INFECTION AND INFECTION CONTROL MEASURES.] Goal Patient Goal - GET STRONGER Goal Provider Goal - A PLAN OF CARE WILL BE ESTABLISHED THAT MEETS PATIENT'S CARE HOME NEEDS AND INCLUDES PATIENT GOAL FOR HOME [...] FOR PHYSICIANS SIGNATURE. Goal Provider Goal - OCCUPATIONAL THERAPY EVALUATION TO BE COMPLETED WITH RECOMMENDATIONS AND WRITTEN PLAN OF TREATMENT ESTABLISHED FOR THE PHYSICIANS SIGNATURE. Goal Provider Goal - EXACERBATIONS OF [...] FOR PROMPT INTERVENTION THROUGHOUT THE CERTIFICATION PERIOD. Progress Notes Progress Notes <paragraph>[Visit Date: 2024 by NADIA CORREA RN]:</paragraph><paragraph>SEE C NOTE</paragraph> Encounters Start Date/Time End Date/Time Encounter Type Admission Type Attending [facility] [place] Facility Care Department Encounter ID Discharge Date Discharge Status Discharge Condition Discharge Reason Percent Goals Met 2024-11-24 00:00:00 2025-01-22 00:00:00 Outpatient [facility]ION JACINTO [facility] [id number] 28.13
== END 2024-12-01 09:46 | disposition home or self-care (01) ==
PROVIDERS: Emergency Medicine; Emergency Provider Emergency Medicine Emergency Medical Services; PCP Physician Assistant Medical
DX: J44.1 Chronic obstructive pulmonary disease with (acute) exacerbation (principal); K62.89 Other specified diseases of anus and rectum; R10.12 Left upper quadrant pain; R06.00 Dyspnea, unspecified; E11.22 Type 2 diabetes mellitus with diabetic chronic kidney disease; N18.30 Chronic kidney disease, stage 3 unspecified; Z79.899 Other long term (current) drug therapy
CPT/HCPCS: 36415; 71045; 74177; 80048; 80076; 81001; 82803; 83605; 83690; 83880; 84484; 85025; 87040; 87637; 93005; 94640; 96365; 96366; 96375; 99285; 99291; J2919; J3475; Q9967

== ENCOUNTER → 2024-12-01 02:11 | Outpatient (BNV) | payer MEDICARE, MEDICAID, SELFPAY | PROVIDERS: Emergency Provider Emergency Medicine Emergency Medical Services; PCP Physician Assistant Medical; Visit Provider Internal Medicine | DX: R10.9 Unspecified abdominal pain (principal) | CPT/HCPCS: 93010 ==

== ENCOUNTER → 2024-12-01 02:13 | Outpatient (BNV) | payer MEDICARE, MEDICAID, SELFPAY | PROVIDERS: Emergency Provider Emergency Medicine; PCP Physician Assistant Medical; Visit Provider General Practice | DX: R10.12 Left upper quadrant pain (principal); S22.080A Wedge compression fracture of T11-T12 vertebra, initial encounter for closed fracture; N32.89 Other specified disorders of bladder; R06.02 Shortness of breath | CPT/HCPCS: 71045 ==

== ENCOUNTER 2024-12-07 14:43 | Outpatient (AMB) | payer MEDICARE, MEDICAID, SELFPAY ==
--- OUTSIDE RECORDS SUMMARY | 2004-11-21 07:15 | XMS_ITS | Continuity of Care Document ---
Author Name [facility] Organization [facility] Care Team Providers Care Assembler Skylights Name Role Phone [facility] Unavailable Unavailable Social History Combined list of [...]
--- NOTE | 2024-12-07 14:51 | A.OFFVIS_ITS ---
Vital Signs 12/07/24 14:58 Height 6 ft Weight 234 lb BMI 31.7 BP 108/60 Blood Pressure Location Lt brachial Position Sitting Pulse 91 Pulse Source Pulse Oximeter Pulse Oximetry (%) 95 Oxygen Delivery Method Room Air Intake Visit Reasons: Dorsalgia, unspecified Intake Note: Pain today 02/02 Woods Laborer Required: No Accompanied by: Family/Other Allergies adhesive Allergy (Severe, Verified 12/01/24 02:05) Rash morphine (MORPHINE) Allergy (Severe, Verified 12/01/24 02:05) NAUSEA codeine (CODEINE) Allergy (Intermediate, Verified 12/01/24 02:05) RASH ibuprofen (From MOTRIN) Allergy (Unknown, Verified 12/01/24 02:05) told to avoid due to kidneys HPI Comments Details: The patient is a 79-year-old male presenting with chronic pain syndrome and chronic low back pain. The chronic low back pain has been persistent and is associated with a history of three back surgeries between 1989 and 1995. The pain is described as pulsing, throbbing, stabbing, cramping, tugging, pulling, tingling, sore, hurting, and aching, and it radiates down the right leg. Patient reports severe mid back pain with movements, especially leaning backwards or coughing. The patient has a compression fracture at T12, which is new and has been revealed on recent abdominal CT scan. The fracture is causing significant pain and limits his physical activity, including physical therapy. Patient has been on chronic opioids, oxycontin 20 mg BID, oxycontin 30 mg BID and Soma 350 mg BID for many years. His previous provider, Dr. Bonilla, has recently retired and patient reports challenges to continue same medication regime with new provider. Patient reports significant increase in pain as his medications are being tapered off. The patient has a history of stroke in 2022, with the most recent occurrence last month, affecting the right side and resulting in right-sided weakness. Patient was discharged to Rehab after acute stroke on 10/28/2024 where he spent less than one week. He also underwent carotid artery surgery in 2022. The patient is on clopidogrel due to the strokes. He reports generalized weakness and fatigue. He receives home PT and has been using walker at home and support from his family and GRANT COORDINATOR. The patient has a history of CHF, diabetes, COPD and KAREN with nocturnal hypoxemia requiring oxygen at night. He does not use a CPAP machine due to discomfort but uses 2 liters of oxygen at night or daytime naps. The patient experiences swelling in the right leg, which began after a stroke, but no blood clots were found on recent duplex ultrasound. He has a history of phlebitis and gout in the right lower extremity, and there is concern about heart failure due to a weak heart per patient and family. - Onset: Chronic, persistent pain; acute mid back pain - Quality: Pulsing, throbbing, stabbing, cramping, tugging, pulling, tingling, sore, hurting, aching - Location: Mid back pain, low back, radiating down the right leg - Exacerbating factors: Physical activity, prolonged sitting, standing, laying down, bending, reaching, twisting - Relieving factors: Pain medication, muscle relaxants - Interference: Affects daily activities, functioning, and sleep - Affect: Pain impacts daily activities and functioning, causing distress - Analgesia: Currently on oxycontin and Soma, but experiencing inadequate pain relief due to tapering down - Adverse Effects: Concerns about addiction and side effects from long-term use of Soma and opioids - Activities of Daily Living: Pain limits mobility and ability to perform daily tasks - Aberrant Drug Related Behaviors: History of high-dose opioid use, now being tapered [facility] Medical History Hospital discharge follow-up Acute CVA (cerebrovascular accident) Diabetes mellitus Type 2 IA (myocardial infarction) Carotid stenosis, right TIA (transient ischemic attack) Chronic renal failure (CRF), stage 3 (moderate) LBBB (left bundle branch block) Cardiomyopathy CHF (congestive heart failure) Chronic back pain Sleep apnea Oxygen dependent Lung nodule CVA (cerebral vascular accident) Surgical History History of lithotripsy History of vasectomy History of back surgery Family History Father Cirrhosis Mother Myocardial infarction Enlarged heart Sister No problems noted. Sister No problems noted. Social History Household Members: Family Housing: House Do you presently have visiting nurse or other home services: No Alcohol intake: former Patient Tobacco Use Status: Former Tobacco user Tobacco use type: Cigarette Years Smoked: ~20 Quit 36 years ago Advance Directives Date on File: 03/27/23 service: No Current occupational status: retired Cognitive needs: Yes (walker/cane) Hearing needs: Yes (hearing loss does not wear hearing aids) Vision needs: Yes (reading glasses) Review of Systems Const Details: - Musculoskeletal: Reports chronic low back pain, radiating to the right leg - Neurological: Reports right-sided weakness post-stroke - Respiratory: Reports nocturnal hypoxemia, uses oxygen at night - Cardiovascular: Reports swelling in the right leg, denies chest pain or shortness of breaths All systems reviewed & are unremarkable except as noted in HPI and below Physical Exam Vital Signs: Last Vital Signs Pulse 91 12/07/24 14:58 BP 108/60 12/07/24 14:58 Pulse Ox 95 12/07/24 14:58 Oxygen Delivery Method Room Air 12/07/24 14:58 BMI result Body Mass Index 31.7 General: Appears afebrile. Alert and oriented. Mood and affect appropriate. Follows and participates in conversation appropriately. Respiratory effort is unlabored. No cough. Able to transition from sit to stand with assistance. Right sided weakness, h/o recent CVA. Ambulates with antalgic gait, with use cane and assistance. Reports using walker at home. Back/Spine/Pelvis Other: Unable to complete back exam due to significant pain. Moderate to severe midline TTP to lower thoracic region. Painful facet loading bilaterally. Cervical Spine: cervical muscular tenderness, pain with cervical ROM and No Cervical spine tenderness Thoracic/Lumbar Spine: thoracic and lumbar spine normal to inspection, Thoracic/lumbar spine scar(s), Lasegue's sign positive on the right and diffuse, pain with thoraco-lumbar ROM, paraspinal muscle tenderness, thoraco-lumbar ROM limited, thoracic spinal tenderness (lower thoracic) and lumbar spinal tenderness at L4 and at L5 Sacroiliac joints: bilaterally tender to palpation Extrem General: Yes capillary refill normal, No calf tenderness, No clubbing and Yes pedal edema (right, +1 nonpitting) Results Reviewed Results Reviewed: CT abdomen pelvis w IV con 12/01/24 CLINICAL HISTORY: diffuse abd pain, worse LUQ, low suspicion sbo Comparison: 03/26/2023 Findings: Mild bibasilar lung atelectasis/scarring. No significant change in 2 bibasilar lung nodules measuring up to 13 mm. Atherosclerotic calcifications. 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 Ectatic left common iliac artery measuring up to 20 mm in AP dimension versus 19 mm previously. Distended gallbladder. Spleen, adrenals, and liver are unremarkable. Prominent prostate measuring 42 mm in width. Too small to characterize tiny splenic hypodensity. Pancreatic fatty infiltration. Too small to characterize bilateral renal hypodensities. Small number of small bilateral nonobstructive renal stones. Redemonstration of moderately atrophied right kidney and duplicated left renal collecting system. Distended urinary bladder without wall thickening. Subtle pericholecystic fat stranding cannot be excluded. Clinical +/-UA correlation to rule out possible cystitis recommended. Ngnv-je-bmtxsyds colonic stool. No bowel obstruction. Unremarkable appendix. New mild presacral and posterior perirectal edema. Although not likely, correlate clinically for possible proctitis. Colonic diverticulosis without diverticulitis. New chronic appearing cikf-ky-rahddnec compression fracture of the T12 superior endplate. Correlate clinically for focal tenderness. Otherwise no acute fracture. IMPRESSION: 1. Distended urinary bladder without wall thickening. Subtle pericholecystic fat stranding cannot be excluded. Clinical +/-UA correlation to rule out possible cystitis recommended. 2. New mild presacral and posterior perirectal edema. Although not likely, correlate clinically for possible proctitis. 3. New chronic appearing qexg-en-bhhaqiai compression fracture of the T12 superior endplate. Correlate clinically for focal tenderness. US TRIPLEX LOWER EXTREMITY, BILATERAL 11/06/24 CLINICAL INFORMATION: Bilateral lower extremity edema. FINDINGS: Respiratory variation, normal compression and augmented flow are noted throughout the bilateral lower extremities. The visualized common femoral vein, superficial femoral vein, profunda femoral vein, popliteal vein and midcalf peroneal and posterior tibial venous segments show no evidence of deep venous thrombosis bilaterally. There is no Baugh's cyst. IMPRESSION: No evidence of deep venous thrombosis involving the bilateral lower extremities. Assessment & Plan Assessment & Plan (1) T12 compression fracture: Code(s): S22.080A - Wedge compression fracture of T11-T12 vertebra, initial encounter for closed fracture Category: Medical (2) Acute midline back pain: Code(s): M54.9 - Dorsalgia, unspecified Category: Medical (3) Chronic pain syndrome: Code(s): G89.4 - Chronic pain syndrome Category: Medical (4) Chronic back pain: Code(s): M54.9 - Dorsalgia, unspecified; G89.29 - Other chronic pain Category: Medical (5) Lumbar post-laminectomy syndrome: Code(s): M96.1 - Postlaminectomy syndrome, not elsewhere classified Category: Medical Plan The patient will undergo an urgent MRI to assess the T12 compression fracture and determine the suitability for kyphoplasty. If the MRI shows no retropulsion, kyphoplasty will be considered to stabilize the fracture. The patient will continue medical management of Oxycontin through his PCP. Briefly discussed Belbuca and weaning off Soma due to its potential impact on CHF, KAREN without use of CPAP and its highly addictive properties. The patient is advised to monitor the swelling in his right leg and report any increase to his PCP and Director Of Application Development. All questions and concerns have been answered and patient agreed with the treatment plan. Follow up for MRI results and sooner as needed. Patient was informed and verbally consented to the use of an ambient scribe for clinic note documentation during this visit. Orders: Orders MR thoracic spine wo con Today F40.240 - Claustrophobia, M54.9 - Dorsalgia, unspecified, S22.080A - Wedge compression fracture of T11-T12 vertebra, initial encounter for closed fracture Coding Level of Care Code New Pt Level 4 (47713) Diagnoses T12 compression fracture S22.080A Acute midline back pain M54.9 Chronic pain syndrome G89.4 Chronic back pain M54.9; G89.29 Lumbar post-laminectomy syndrome M96.1
[2024-12-07 14:58] VITALS: BP 108/60; PULSE 91; O2SAT 95; BMI 31.7
--- OUTSIDE RECORDS SUMMARY | 2024-12-07 15:21 | XMS_ITS | Clinical Summary ---
Author Organization [facility] Address [address] [facility] [address]t [place] [address] Care Team Providers Care Curb And Gutter Laborer Name Role Phone Unavailable Primary Care Provider [...] Type Department Care Team Description 11/23/[address] [address] Catrachito Price MD Appointment Request 11/21/2024 Telephone [facility] [address] [place] [address] Viki Rojas MD No Show 11/20/[address] [address] Savanah Avina PharmD Hospital Follow-up 11/20/2024 Telephone [facility] [address] [place] [address] Sridevi Bourne MA Televisit JEWELRY CASTING MODEL MAKER APPRENTICE 11/20/2024 Travel 11/14/2024 Patient Outreach [address] [address] Viki Rojas MD Transition Of Care (Tcm) (HDF- is already scheduled) 11/14/2024 Patient Outreach [address] [address] Catrachito Price MD Transition Of Care (Tcm) (HDF- Unscheduled - (already has a HDF appt) ) 11/14/2024 Telephone [facility] [address] [place] [address] Jhonathan Valles MD Hospital Follow-up 11/01/2024 Telephone [facility] [address] [place] [address] Jhonathan Valles MD Hospital Follow-up 11/01/2024 Patient Outreach [facility] [address] [place] [address] Jhonathan Valles MD Transition Of Care (Tcm) (HDF/JEWELRY CASTING MODEL MAKER APPRENTICE Combined.) from Last 3 Months Immunizations Immunization [...]
--- OUTSIDE RECORDS SUMMARY | 2024-12-07 15:21 | XMS_ITS | Encounter Summary ---
Author Organization [facility] Address [address] [place] [address] Phone Care Team Providers Care Agricultural Education Teacher Name Role Phone Mj Bonilla MD Primary Care Provider [phone] Encounter Details Date Type Department Care Team (Late st Contact Info) Description 08/25/2022 Telephone [facility] [address] [place] [address] Caty Krishna Social History Tobacco Use [...] on filedocumented in this encounter Care Teams Agricultural Education Teacher Relationship Specialty Start Date End Date Mj Bonilla MD [address] [place] [address] PCP - General 05/06/20 documented as of this encounter
--- OUTSIDE RECORDS SUMMARY | 2024-12-07 15:22 | XMS_ITS | Encounter Summary ---
Author Organization [facility] Address [address] [place] [address] Care Team Providers Care Manager Respiratory Name Role Phone Physician, No Pcp Primary Care Provider Unavaila ble Encounter Details Date Type Department Care Team (Late st Contact Info) Description 11/11/2024 Lab Requisition [facility] - Main Lab [address] [facility] [place] [address] Debbie Mccann PA [address] [place] [address] Encounter for other general examination Social History [...] [facility] LAB BLOOD ORDERABLES Final Resul t [facility] ([facility]) [facility] [address] [place] [address], documented in this encounter Visit Diagnoses Diagnosis Encounter for other general examination documented in this encounter Care Teams Manager Respiratory Relationship Specialty Start Date End Date Physician, No Pcp PCP - General 11/10/24 documented as of this encounter
== END 2024-12-07 15:51 | disposition home or self-care (01) ==
PROVIDERS: PCP Physician Assistant Medical; Visit Provider Nurse Practitioner Family
DX: G89.4 Chronic pain syndrome (principal); S22.080A Wedge compression fracture of T11-T12 vertebra, initial encounter for closed fracture; M54.9 Dorsalgia, unspecified; G89.29 Other chronic pain; M96.1 Postlaminectomy syndrome, not elsewhere classified
CPT/HCPCS: 99204

== ENCOUNTER → 2024-12-07 14:43 | Outpatient (BNVA) | payer MEDICARE, MEDICAID, SELFPAY | PROVIDERS: PCP Physician Assistant Medical; Visit Provider Nurse Practitioner Family | DX: S22.080A Wedge compression fracture of T11-T12 vertebra, initial encounter for closed fracture (principal); M54.9 Dorsalgia, unspecified; M96.1 Postlaminectomy syndrome, not elsewhere classified; G89.29 Other chronic pain | CPT/HCPCS: 99202 ==

== ENCOUNTER 2024-12-13 13:55 | Outpatient (AMB) | payer MEDICARE, MEDICAID, SELFPAY ==
--- OUTSIDE RECORDS SUMMARY | 2004-11-21 07:15 | XMS_ITS | Continuity of Care Document ---
Author Name [facility] Organization [facility] Care Team Providers Care Manager Integrated Name Role Phone [facility] Unavailable Unavailable Social History Combined list of [...]
--- OUTSIDE RECORDS SUMMARY | 2024-12-13 14:52 | XMS_ITS | Clinical Summary ---
Author Organization [employer] Address [address] [facility] 7[address] [place] [address] Care Team Providers Care Ancillary Services Manager Name Role Phone Unavailable Primary Care Provider [...] Type Department Care Team Description 11/23/[address] [address] Catrachito Price MD Appointment Request 11/21/2024 Telephone [facility] [address] [place] [address] Viki Rojas MD No Show 11/20/[address] [address] Savanah Avina PharmD Hospital Follow-up 11/20/2024 Telephone [facility] [address] [place] [address] Sridevi Bourne MA Televisit SODA CLERK 11/20/2024 Travel 11/14/2024 Patient Outreach [address] [address] Viki Rojas MD Transition Of Care (Tcm) (HDF- is already scheduled) 11/14/2024 Patient Outreach [address] [address] Catrachito Price MD Transition Of Care (Tcm) (HDF- Unscheduled - (already has a HDF appt) ) 11/14/2024 Telephone [facility] [address] [place] [address] Jhonathan Valles MD Hospital Follow-up 11/01/2024 Telephone [facility] [address] [place] [address] Jhonathan Valles MD Hospital Follow-up 11/01/2024 Patient Outreach [facility] [address] [place] [address] Jhonathan Valles MD Transition Of Care (Tcm) (HDF/SODA CLERK Combined.) from Last 3 Months Immunizations Immunization [...] age to complete this topic Insurance MEDICARE [facility]
--- OUTSIDE RECORDS SUMMARY | 2024-12-13 14:52 | XMS_ITS | Encounter Summary ---
Author Organization [facility] Address [address] [place] [address] Care Team Providers Care Promotions Team Leader Name Role Phone Physician, No Pcp Primary Care Provider Unavaila ble Encounter Details Date Type Department Care Team (Late st Contact Info) Description 11/11/2024 Lab Requisition [facility] - Main Lab [address] [facility] [place] [address] Debbie Mccann PA [address] [place] [address] Encounter for other general examination Social History [...] LAB CHEMISTRY METHOD 11/12/2024 11:13 AM EDT [facility] Mean Bld Glu Estim. 143 mg/dL LAB CHEMISTRY METHOD 11/12/2024 11:13 AM EDT [facility] Blood Venous blood specimen / Unknown Venipuncture / Unknown 11/11/2024 5:59 AM EDT 11/11/2024 9:57 AM EDT us Debbie SALGUERO LAB BLOOD ORDERABLES Final Resul t [facility] [address] [place] [address], documented in this encounter Visit Diagnoses Diagnosis Encounter for other general examination documented in this encounter Care Teams Promotions Team Leader Relationship Specialty Start Date End Date Physician, No Pcp PCP - General 11/10/24 documented as of this encounter
--- OUTSIDE RECORDS SUMMARY | 2024-12-13 14:52 | XMS_ITS | Encounter Summary ---
Author Organization [facility] Address [address] [place] [address] Phone Care Team Providers Care Project Builder Name Role Phone Mj Bonilla MD Primary Care Provider Encounter Details Date Type Department Care Team [...] on filedocumented in this encounter Care Teams Project Builder Relationship Specialty Start Date End Date Mj Bonilla MD [address] [place] [address] PCP - General 05/06/20 documented as of this encounter
--- NOTE | 2024-12-13 15:23 | MHC.PC.OV ---
Vital Signs 12/13/24 15:24 Height 6 ft Weight 227 lb 4 oz BMI 30.8 BP 146/70 H Blood Pressure Location Lt brachial Position Sitting Respiration 20 Pulse 98 Pulse Source Pulse Oximeter Temp 100.6 F H Temp Source Temporal Artery Scan Pulse Oximetry (%) 92 Oxygen Delivery Method Room Air Intake Visit Reasons: [facility] Intake Note: Visit Reason: ER discharge follow-up and chronic medical condition Manager Talent Required: No Director [place] Sales: Not Required per policy Accompanied by: Daughter Allergies adhesive Allergy (Severe, Verified 12/14/24 09:13) Rash morphine (MORPHINE) Allergy (Severe, Verified 12/14/24 09:13) NAUSEA codeine (CODEINE) Allergy (Intermediate, Verified 12/14/24 09:13) RASH ibuprofen (From MOTRIN) Allergy (Unknown, Verified 12/14/24 09:13) told to avoid due to kidneys Medication List - Last Reconciled 12/14/24 by Monique Hernandez PA-C allopurinol 200 mg PO DAILY aspirin 81 mg PO DAILY carisoprodol 350 mg PO BID carvedilol 6.25 mg PO BID clopidogrel 75 mg PO DAILY dapagliflozin propanediol (Farxiga) 10 mg PO DAILY 90 days ndrslaggrjz-yxylxlqnt-ectzcjss 100-62.5-25 mcg (Trelegy Ellipta) 1 ea inhalation DAILY furosemide 20 mg PO DAILY glipizide ER mg PO ipratropium-albuterol 0.5 mg-3 mg(2.5 mg base)/3 mL 3 mL inhalation Q6H PRN levofloxacin 250 mg PO DAILY 5 days losartan 50 mg PO DAILY metronidazole 500 mg PO TID 5 days omega 7-grr-rgh-fish oil 1,000 (120-180) mg (Fish Oil) 1 cap PO DAILY oxycodone ER (OxyContin) 30 mg PO BID prednisone 40 mg (2 x 20 mg) PO DAILY simvastatin 40 mg PO DAILY Tobacco use date assessed: 11/22/24 Fall risk assessment: 2 + Falls in past year Last assessed Fall Risk: 11/22/24 Dental Screening Dental Screen Date: 11/22/24 Did you have a dental visit in the last 12 months?: No Did you have a dental problem in the last 6 months where you did not have access to dental care?: No HPI [facility] HPI Details The patient is a 79-year-old male presenting with a follow-up for a fracture in the spine and prostatitis. The fracture in the spine was identified during a recent hospital visit where a CAT scan was performed. The patient had a history of falls, with one occurring a couple of weeks before the hospital visit, which may have contributed to the fracture. He was in pain during his stay at [facility], which was noted at the end of October. The patient was also diagnosed with prostatitis and was discharged with antibiotics for treatment. There was a mention of a panic attack during a previous hospital visit, initially suspected to be a heart attack, which was later confirmed as a panic attack causing difficulty in breathing. Patient was previously on OxyContin 30 mg extended release b.i.d. which was continued at same dose and OxyContin extended release 20 mg daily which was discontinued along with Soma 350 mg 180 tablets for 30 days was reduced to 60 tablets every 30 days. Patient is on chronic narcotics he is currently on oxycodone extended release 30 mg b.i.d. and Soma 350 mg p.o. b.i.d.. He is agreeable to pain contract with random drug test and random pill counts with every 30 day visits. Patient with daughter at bedside and grandson who is ADVANCED PRACTICE NURSE PSYCHOTHERAPIST. [facility] Medical History (Updated 12/14/24 @ 13:30 by Monique Hernandez PA-C) Panic attack Fracture of lumbar spine Prostatitis Hospital discharge follow-up Acute CVA (cerebrovascular accident) Diabetes mellitus Type 2 WV (myocardial infarction) Carotid stenosis, right TIA (transient ischemic attack) Chronic renal failure (CRF), stage 3 (moderate) LBBB (left bundle branch block) Cardiomyopathy CHF (congestive heart failure) Chronic back pain Sleep apnea Oxygen dependent Lung nodule CVA (cerebral vascular accident) Surgical History History of lithotripsy History of vasectomy History of back surgery Family History Father Cirrhosis Mother Myocardial infarction Enlarged heart Sister No problems noted. Sister No problems noted. Social History Household Members: Family Housing: House Do you presently have visiting nurse or other home services: No Alcohol intake: former Patient Tobacco Use Status: Former Tobacco user Tobacco use type: Cigarette Years Smoked: ~20 Quit 36 years ago Advance Directives Date on File: 03/27/23 service: No Current occupational status: retired Cognitive needs: Yes (walker/cane) Hearing needs: Yes (hearing loss does not wear hearing aids) Vision needs: Yes (reading glasses) Questionnaire PHQ-9 Over the last 2 weeks, how often have you been bothered by any of the following problems? 1. Little interest or pleasure in doing things: not at all 2. Feeling down, depressed, or hopeless: not at all 3. Trouble falling or staying asleep, or sleeping too much: not at all 4. Feeling tired or having little energy: not at all 5. Poor appetite or overeating: not at all 6. Feeling bad about yourself - or that you are a failure or have let yourself or your family down: not at all 7. Trouble concentrating on things, such as reading the newspaper or watching television: not at all 8. Moving or speaking so slowly that other people could have noticed. Or the opposite - being so fidgety or restless that you have been moving around a lot more than usual: not at all 9. Thoughts that you would be better off or of hurting yourself in some way: not at all Total score: 0 Depression Screening Interpretation: Negative Depression Screening Done: Yes 67953 - PHQ-9 Billing: Yes Source: Developed by Drs. Dread Strauss, Laura Edwards, Hermann Brush and colleagues, with an educational cooper from [employer]. Thrive Questionnaire Date Thrive assessed: 11/22/24 I am a: Patient What is your living situation today?: I have a steady place to live Within the past 12 months, did the food you bought not last and you didn't have the money to get more?: Never true Within the past 12 months, did you worry whether your food would run out before you got money to buy more?: Never true Do you have trouble paying for medicines?: No Do you have trouble getting transportation to medical appointments?: No Do you have trouble paying your heating and electricity bill?: No Do you have trouble taking care of your child, family member or friend?: No Do you have trouble with day-to-day activities such as bathing, preparing meals, shopping, managing finances, etc.?: No Are you currently unemployed and looking for a job?: No Are you interested in more education?: No Please select the resources that you would like help with: None THRIVE Score: 0 AUDIT C Alcohol Use Questionnaire (AUDIT-C) 1. How often do you have a drink containing alcohol?: Never 3. How often do you have six or more drinks on one occasion?: Never Total Score: 0 Score Reviewed/Action Taken: No BRIELLE-7 AMB Questionnaire BRIELLE-7 Date BRIELLE - 7 assessed: 11/22/24 Feeling nervous, anxious, or on edge: 0 = Not at all Not being able to stop or control worryin = Not at all Worrying too much about different things: 0 = Not at all Trouble relaxin = Not at all Being so restless that it is hard to sit still: 0 = Not at all Becoming easily annoyed or irritable: 0 = Not at all Feeling afraid as if something awful might happen: 0 = Not at all Total BRIELLE-7 score (0-4 normal; 5-9 mild; 10-14 moderate; 15-21 severe): 0 Source: Developed by Drs. Dread Strauss, Laura Edwards, Hermann Brush and colleagues, with an educational cooper from [employer]. BRIELLE-7 Assessment Billing BRIELLE-7 Assessment Tool: BRIELLE-7 Assessment 35141 Review of Systems Const All systems reviewed & are unremarkable except as noted in HPI and below Physical exam (Primary Care) Vital Signs: Last Vital Signs Temp 100.6 F H 12/13/24 15:24 Pulse 98 12/13/24 15:24 Resp 20 12/13/24 15:24 BP 146/70 H 12/13/24 15:24 Pulse Ox 92 12/13/24 15:24 Oxygen Delivery Method Room Air 12/13/24 15:24 Vitals signs have been reviewed. Care Plan Goal for BP management: <140/90 patient to monitor his blood pressure return in 30 days BMI result Body Mass Index 30.8 BMI Assessment/Plan discussion: High BMI High, discussed plan: lifestyle, weight reduction, dietary, physical activity, alcohol moderation and other Tobacco/Smoking Status: Tobacco use Status Tobacco use date assessed 11/22/24 12/13/24 15:27 Patient Tobacco Use Status Former Tobacco user 12/13/24 15:27 Tobacco use type Cigarette 12/13/24 15:27 PHQ-9: PHQ-9 Score PHQ-9: Total score 0 12/14/24 09:17 Depression Screening Interpretation: Negative Thrive Assessment: Date of Thrive Assessment Date Thrive assessed 11/22/24 12/13/24 15:27 Const Other: Appearance: Alert. Oriented X3. No acute distress. Head: Normal external exam. Normocephalic. Atraumatic. Eyes: Pupils are equal, round, and reactive to light. Extraocular movements intact. Conjunctiva and sclera normal. Eyelids normal. Throat: Pharynx normal. Uvula midline. Moist mucous membranes. Neck: Normal inspection. Neck supple. Full range of motion. Cardiovascular: Normal heart rate and rhythm. Heart sound normal. No murmurs noted. Pulses normal throughout. Respiratory: No respiratory distress. Painless inspiration. Breath sounds normal. No wheezes/rales/rhonchi noted. Chest nontender. No accessory muscle usage noted or decreased air movement noted. Abdomen: Soft and nontender. Back: Full range of motion noted. Skin: Skin warm and dry. Normal skin color. Normal skin turgor. No rashes/lesions/lacerations noted. Extremities: Extremities exhibit normal range of motion. Results Reviewed Results Reviewed: - Imaging: CAT scan revealed a fracture in the spine. Coding Level of Care Code Est Pt Level 4 (35858) Complex EM visit Add On G2211 Diagnoses Prostatitis N41.9 Fracture of lumbar spine S32.009A Panic attack F41.0 Additional Codes BRIELLE-7 Assessment Billing - BRIELLE-7 Assessment Tool: BRIELLE-7 Assessment 49127 ([id number]) PHQ-9 - 72896 - PHQ-9 Billing: Yes ([id number]) Assessment & Plan Assessment & Plan (1) Prostatitis: Code(s): N41.9 - Inflammatory disease of prostate, unspecified Category: Medical Plan: The patient was discharged with antibiotics for the treatment of prostatitis. (2) Fracture of lumbar spine: Code(s): S32.009A - Unspecified fracture of unspecified lumbar vertebra, initial encounter for closed fracture Category: Medical Plan: The fracture in the spine was identified via CAT scan during a hospital visit. (3) Panic attack: Code(s): F41.0 - Panic disorder [episodic paroxysmal anxiety] Category: Medical Plan: The patient experienced a panic attack, initially suspected to be a heart attack, which was later confirmed as a panic attack causing difficulty in breathing. Plan Plan Patient was informed and verbally consented to the use of an ambient scribe for clinic note documentation during this visit. 1. Prostatitis The patient was discharged with antibiotics for the treatment of prostatitis. 2. Fracture In The Spine The fracture in the spine was identified via CAT scan during a hospital visit. 3. Panic Attack The patient experienced a panic attack, initially suspected to be a heart attack, which was later confirmed as a panic attack causing difficulty in breathing. 4. Chronic pain syndrome patient is currently on oxycodone 30 mg extended release p.o. b.i.d. which has been unchanged send the patient started with us at this clinic. He was on OxyContin extended release 20 mg daily which was discontinued at the last visit. He is on Soma 350 mg p.o. b.i.d. which we will continue at this time. The plan was to decrease the patient further from the oxycodone and the Soma although due to patient's fracture and lumbar spine he is having increasing pain therefore will continue on this regimen at this time. He is agreeable to pain contract which he signed today with his daughter and his grandson who is a ADVANCED PRACTICE NURSE PSYCHOTHERAPIST at bedside. He is agreeable to random drug test. He is agreeable to random pill counts. He is agreeable to being seen by pain management. He is agreeable to returning every 30 days.
[2024-12-13 15:24] VITALS: BP 146/70; PULSE 98; RESP 20; TEMP 38.1; O2SAT 92; BMI 30.8
== END 2024-12-13 15:17 | disposition home or self-care (01) ==
LOC: HO.HMCSH 13:55
PROVIDERS: PCP Physician Assistant Medical; Visit Provider Physician Assistant Medical
DX: N41.9 Inflammatory disease of prostate, unspecified (principal); S32.009A Unspecified fracture of unspecified lumbar vertebra, initial encounter for closed fracture; F41.0 Panic disorder [episodic paroxysmal anxiety]

== ENCOUNTER 2024-12-13 13:55 | Outpatient (REF) | payer MEDICARE, MEDICAID, SELFPAY ==
[2024-12-13 16:48] LABS: Cannabinoid Screen Urine Not Detected (Not Detect)
--- OUTSIDE RECORDS SUMMARY | 2025-01-21 20:00 | XMS_ITS | Clinical Summary ---
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 XXXX Problems Condition Name [...] 11-12 00:00: 00 11-28 00:00 :00 No [id number] Per instruc tions THREE TIMES DAILY Per instructio ns THREE TIMES DAILY (route: oral) Med Classific ation: Locomotor System carvedilol 3.125 mg tablet 11-10 00:00: 00 03-15 00:00 :00 No [id number] 1 tablet TWICE DAILY 1 tablet TWICE DAILY (route: oral) Med Classific ation: Cardiovas cular Therapy Agents Jardiance 10 mg tablet 7-18 00:00: 00 03-15 00:00 :00 No [id number] 1 tablet DAILY 1 tablet DAILY (route: oral) Med Classific ation: Endocrine OxyContin 20 mg tablet,david h resistant,e xtended release 11-05 00:00: 00 03-15 00:00 :00 No [id number] Unavailable Per instruc tions EVERY Per instructio ns EVERY (route: oral) Med Classific ation: Analgesic , Anti-infl ammatory or Antipyret ic OxyContin 30 mg tablet,david h resistant,e xtended release 11-05 00:00: 00 03-15 00:00 :00 No [id number] Unavailable Per instruc tions EVERY EVERY Per instructio ns EVERY EVERY (route: oral) Med Classific ation: Analgesic , Anti-infl ammatory or Antipyret ic Ventolin HFA 90 mcg/actuati on aerosol inhaler 7-06 00:00: 00 03-15 00:00 :00 No [id number] Per instruc tions INTO THE LUNGS EVERY 3 HOURS NEEDED Per instructio ns INTO THE LUNGS EVERY 3 HOURS NEEDED (route: inhalation ) Med Classific ation: Respirato ry Therapy Agents lorazepam 1 mg tablet 6-29 00:00: 00 03-15 00:00 :00 No [id number] 1 tablet THREE TIMES DAILY 1 tablet THREE TIMES DAILY (route: oral) Med Classific ation: Central Nervous System Agents carisoprodo l 350 mg tablet 6-22 00:00: 00 03-15 00:00 :00 No [id number] 1 tablet THREE TIMES DAILY 1 tablet THREE TIMES DAILY (route: oral) Med Classific ation: Locomotor System allopurinol 100 mg tablet 8-05 00:00: 00 03-15 00:00 :00 No [id number] 2 tablet DAILY 2 tablet DAILY (route: oral) Med Classific ation: Gout and Hyperuric emia Therapy aspirin 81 mg tablet,rene yed release 11-28 00:00: 00 03-15 00:00 :00 No [id number] 1 tablet DAILY 1 tablet DAILY (route: oral) Med Classific ation: Hematolog ical Agents atorvastati n 80 mg tablet 11-28 00:00: 00 03-15 00:00 :00 No [id number] 1 tablet BEDTIME 1 tablet BEDTIME (route: oral) Med Classific ation: Cardiovas cular Therapy Agents cefpodoxime 100 mg tablet 11-28 00:00: 00 12-01 23:59 :00 No [id number] 1 tablet 2 TIMES DAILY 1 tablet 2 TIMES DAILY (route: oral) Med Classific ation: Anti-Infe ctive Agents clopidogrel 75 mg tablet 11-28 00:00: 00 03-15 00:00 :00 No [id number] 1 tablet DAILY 1 tablet DAILY (route: oral) Med Classific ation: Hematolog ical Agents glipizide ER 2.5 mg tablet, extended release 24 hr 11-28 00:00: 00 03-15 00:00 :00 No [id number] 1 tablet 2 TIMES DAILY 1 tablet 2 TIMES DAILY (route: oral) Med Classific ation: Endocrine Mucinex 600 mg tablet, extended release 11-28 00:00: 00 12-07 23:59 :00 No [id number] 1 tablet 2 TIMES DAILY 1 tablet 2 TIMES DAILY (route: oral) Med Classific ation: Respirato ry Therapy Agents omeprazole 20 mg capsule,del ayed release 11-28 00:00: 00 03-15 00:00 :00 No [id number] 1 capsule DAILY 1 capsule DAILY (route: oral) Med Classific ation: Gastroint estinal Therapy Agents tamsulosin 0.4 mg capsule 11-28 00:00: 00 03-15 00:00 :00 No [id number] 1 capsule DAILY 1 capsule DAILY (route: oral) Med Classific ation: Genitouri nary Therapy torsemide 20 mg tablet 11-28 00:00: 00 03-15 00:00 :00 No [id number] 0.5 tablet DAILY 0.5 tablet DAILY (route: oral) Med Classific ation: Cardiovas cular Therapy Agents OXYGEN 11-28 00:00: 00 10-25 23:59 :00 No [id number] 2 Liter O2 - CONTINUOUS 2 Liter O2 - CONTINUOUS (route: Oxygen) Med Classific ation: Medical Oxygen allopurinol 100 mg tablet 2023-04 00:00: 00 10-25 23:59 :00 No [id number] 2 tablet DAILY 2 tablet DAILY (route: oral) Med Classific ation: Gout and Hyperuric emia Therapy aspirin 81 mg tablet,rene cobyd release 2023-04 00:00: 00 10-25 23:59 :00 No [id number] 1 tablet DAILY 1 tablet DAILY (route: oral) Med Classific ation: Hematolog ical Agents carisoprodo l 350 mg tablet 2023-04 00:00: 00 10-25 23:59 :00 No [id number] 2 tablet 3 TIMES DAILY 2 tablet 3 TIMES DAILY (route: oral) Med Classific ation: Locomotor System carvedilol 6.25 mg tablet 2023-04 00:00: 00 10-25 23:59 :00 No [id number] 1 tablet 2 TIMES DAILY 1 tablet 2 TIMES DAILY (route: oral) Med Classific ation: Cardiovas cular Therapy Agents clopidogrel 75 mg tablet 2023-04 00:00: 00 10-25 23:59 :00 No [id number] 1 tablet DAILY 1 tablet DAILY (route: oral) Med Classific ation: Hematolog ical Agents Farxiga 10 mg tablet 2023-04 00:00: 00 10-25 23:59 :00 No [id number] 1 tablet DAILY 1 tablet DAILY (route: oral) Med Classific ation: Endocrine Fish Oil 1,000 mg (120 mg-180 mg) capsule 2023-04 00:00: 00 10-25 23:59 :00 No [id number] 1 capsule DAILY 1 capsule DAILY (route: oral) Med Classific ation: Cardiovas cular Therapy Agents furosemide 20 mg tablet 2023-04 00:00: 00 10-25 23:59 :00 No [id number] 1 tablet DAILY 1 tablet DAILY (route: oral) Med Classific ation: Cardiovas cular Therapy Agents glipizide 2.5 mg tablet 2023-04 00:00: 00 10-25 23:59 :00 No [id number] 1 tablet 2 TIMES DAILY 1 tablet 2 TIMES DAILY (route: oral) Med Classific ation: Endocrine lorazepam 1 mg tablet 2023-04 00:00: 00 10-25 23:59 :00 No [id number] 1 tablet 3 TIMES DAILY 1 tablet 3 TIMES DAILY (route: oral) Med Classific ation: Central Nervous System Agents losartan 50 mg tablet 2023-04 00:00: 00 10-25 23:59 :00 No [id number] 1 tablet DAILY 1 tablet DAILY (route: oral) Med Classific ation: Cardiovas cular Therapy Agents omeprazole 20 mg capsule,del ayed release 2023-04 00:00: 00 10-25 23:59 :00 No [id number] 1 capsule DAILY 1 capsule DAILY (route: oral) Med Classific ation: Gastroint estinal Therapy Agents ondansetron HCl 4 mg tablet 2023-04 00:00: 00 10-25 23:59 :00 No [id number] 1 tablet EVERY 8 HOURS 1 tablet EVERY 8 HOURS (route: oral) Med Classific ation: Gastroint estinal Therapy Agents oxycodone 20 mg tablet 2023-04 00:00: 00 10-25 23:59 :00 No [id number] 1 tablet DIRECTED 1 tablet DIRECTED (route: oral) Med Classific ation: Analgesic , Anti-infl ammatory or Antipyret ic OxyContin 30 mg tablet,david h resistant,e xtended release 2023-04 00:00: 00 10-25 23:59 :00 No [id number] 1 tablet 2 TIMES DAILY 1 tablet 2 TIMES DAILY (route: oral) Med Classific ation: Analgesic , Anti-infl ammatory or Antipyret ic simvastatin 40 mg tablet 2023-04 00:00: 00 10-25 23:59 :00 No [id number] 1 tablet BEDTIME 1 tablet BEDTIME (route: oral) Med Classific ation: Cardiovas cular Therapy Agents Trelegy Ellipta 100 mcg-62.5 mcg-25 mcg powder for inhalation 2023-04 00:00: 00 10-25 23:59 :00 No [id number] 1 inhalat ion DAILY 1 inhalation DAILY (route: inhalation ) Med Classific ation: Respirato ry Therapy Agents Vital Signs Vital Name Observation Time Observation Value Commen ts Temperature 2024-12-12 10:15:00.000 98.1 [degF] Temperature 2024-12-09 21:25:00.000 97.8 [degF] Temperature 2024-12-07 13:06:00.000 98.8 [degF] Temperature 2024-12-05 13:15:00.000 98.3 [degF] Temperature 2024-12-05 07:25:00.000 97.8 [degF] Temperature 2024-12-01 12:06:00.000 98.3 [degF] Temperature 2024-11-30 12:52:00.000 98.7 [degF] Temperature 2024-11-24 12:43:00.000 97.8 [degF] BMI (%) 2024-11-24 12:43:00.000 33 kg/m2 Height 2024-11-24 12:43:00.000 72 [in_us] Pulse 2024-12-12 10:15:00.000 102 /min Pulse 2024-12-09 21:25:00.000 88 /min Pulse 2024-12-07 13:06:00.000 90 /min Pulse 2024-12-05 13:15:00.000 66 /min Pulse 2024-12-05 07:25:00.000 70 /min Pulse 2024-12-01 12:06:00.000 65 /min Pulse 2024-11-30 12:52:00.000 78 /min Pulse 2024-11-24 12:43:00.000 80 /min O2 Saturation (%) 2024-12-12 10:13:00.000 95 % O2 Saturation (%) 2024-12-07 13:06:00.000 90 % O2 Saturation (%) 2024-12-05 13:15:00.000 96 % O2 Saturation (%) 2024-12-01 12:06:00.000 99 % O2 Saturation (%) 2024-11-30 12:52:00.000 94 % O2 Saturation (%) 2024-11-24 12:43:00.000 94 % Respirations 2024-12-09 21:25:00.000 18 /min Respirations 2024-12-07 13:06:00.000 18 /min Respirations 2024-12-05 13:15:00.000 16 /min Respirations 2024-12-05 07:25:00.000 18 /min Respirations 2024-12-01 12:06:00.000 16 /min Respirations 2024-11-30 12:52:00.000 22 /min Respirations 2024-11-24 12:43:00.000 16 /min Weight (lbs) 2024-11-24 12:43:00.000 245 [lb_av] Systolic Blood Pressure 2024-12-12 10:13:00.000 146 mm [...] 12:43:00.000 105 mm [Hg] Diastolic Blood Pressure 2024-12-12 10:13:00.000 [...] MAINTAIN SITUATIONAL AWARENESS AND WILL NOTIFY CLINICAL OPTICIAN APPRENTICE AND PHYSICIAN/PROVIDER WITH ANY CHANGE IN CONDITION. [code = SKILLED NURSE TO PERFORM ENVIRONMENTAL SAFETY RISK ASSESSMENT AND FALL RISK ASSESSMENT AND PROVIDE INSTRUCTION TO IMPLEMENT ENVIRONMENTAL SAFETY AND FALL PREVENTION STRATEGIES THROUGHOUT THE CERTIFICATION PERIOD. 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 [code = SKILLED NURSE TO INSTRUCT PATIENT/CAREGIVER ON WARNING SIGNS OF CVA, RISK FACTORS, AND METHODS TO MANAGE SKILLED NURSING EFFECTS OF CVA.] Future Scheduled Test SKILLED [...] AND POSITIONING TECHNIQUES IN ORDER TO INCREASE PATIENTS COMFORT AND DECREASE RISK OF SKIN BREAKDOWN. [...] LOWER EXTREMITY WEAKNESS EVIDENCED BY 30 SECOND [id number] SCORE LESS THAN 8 REPETITIONS, IMPAIRED DYNAMIC [...] AND POSITIONING TECHNIQUES IN ORDER TO INCREASE PATIENTS COMFORT AND DECREASE RISK OF SKIN BREAKDOWN. [...] REASON(S) SKILLS OF A THERAPIST ARE INDICATED: GAIT: PATIENT IS A 79-YEAR-OLD MALE WITH HISTORY [...] LOWER EXTREMITY WEAKNESS EVIDENCED BY 30 SECOND [id number] SCORE LESS THAN 8 REPETITIONS, IMPAIRED DYNAMIC [...] COORDINATION TRAINING TECHNIQUES TO ENHANCE PARTICIPATION IN ADLS. OCCUPATIONAL THERAPY TO ASSESS AND RECOMMEND HOME SAFETY ADAPTATIONS AND EDUCATE PATIENT /CAREGIVER ON FALL PREVENTION STRATEGIES TO ENHANCE PARTICIPATION IN ADLS. OCCUPATIONAL THERAPY TO PROVIDE PATIENT/CAREGIVER WITH INSTRUCTIONS AND RECOMMENDATIONS TO IMPROVE ADLS WHILE USING APPROPRIATE ADAPTIVE DEVICES RECOMMENDED. SUMMARY OF THERAPY EVAL/ASSESSMENT FINDINGS AND REASON(S) SKILLS OF A THERAPIST ARE INDICATED: 79 YEAR OLD PATIENT DISCHARGED FROM REHAB EARLY IN OCTOBER DUE TO CVA. PATIENT HOSPITALIZED AT [facility] ON 11/06 DUE TO COPD EXACERBATION AND MARICHUY. PATIENT SENT TO [facility] FOR STR ON 11/09. PATIENT RETURNED TO THE HOSPITAL ON 11/17 DUE TO COLITIS SECONDARY TO CONSTIPATION. ANTIBIOTICS WERE D/C, CONSTIPATION RESOLVED. PATIENT RETURNED TO [facility] FROM 11/19 TO 11/20. PATIENT [...] PATIENT REPORTS THAT HIS GRANDSON IS HIS SIDER THROUGH [facility] AND PROVIDES APROX 28 HOURS [...] COORDINATION TRAINING TECHNIQUES TO ENHANCE PARTICIPATION IN ADLS. OCCUPATIONAL THERAPY TO ASSESS AND RECOMMEND HOME SAFETY ADAPTATIONS AND EDUCATE PATIENT /CAREGIVER ON FALL PREVENTION STRATEGIES TO ENHANCE PARTICIPATION IN ADLS. OCCUPATIONAL THERAPY TO PROVIDE PATIENT/CAREGIVER WITH INSTRUCTIONS AND RECOMMENDATIONS TO IMPROVE ADLS WHILE USING APPROPRIATE ADAPTIVE DEVICES RECOMMENDED. SUMMARY OF THERAPY EVAL/ASSESSMENT FINDINGS AND REASON(S) SKILLS OF A THERAPIST ARE INDICATED: 79 YEAR OLD PATIENT DISCHARGED FROM REHAB EARLY IN OCTOBER DUE TO CVA. PATIENT HOSPITALIZED AT [facility] ON 11/06 DUE TO COPD EXACERBATION AND MARICHUY. PATIENT SENT TO [facility] FOR STR ON 11/09. PATIENT RETURNED TO THE HOSPITAL ON 11/17 DUE TO COLITIS SECONDARY TO CONSTIPATION. ANTIBIOTICS WERE D/C, CONSTIPATION RESOLVED. PATIENT RETURNED TO [facility] FROM 11/19 TO 11/20. PATIENT [...] PATIENT REPORTS THAT HIS GRANDSON IS HIS SIDER THROUGH [facility] AND PROVIDES APROX 28 HOURS [...] CARE WILL BE ESTABLISHED THAT MEETS PATIENT'S [facility] NEEDS AND INCLUDES PATIENT GOAL FOR HOME [...] CARE ESTABLISHED FOR THE PHYSICIANS SIGNATURE PATIENT/CAREGIVER VERBALIZES UNDERSTANDING OF THE INITIAL [...] Notes Progress Notes <paragraph>[Visit Date: 2024 by MALA MELENDEZ LPN]:</paragraph><paragraph>SNV 12/12 ABNORMAL VITALS: PAIN FALLS: NO FALLS OBSERVATION AND ASSESSMENT PROVIDED: PATIENT IS ALERT AND ORIENTED X4 COOPERATIVE DURING VISIT. PT AND DAUGHTER PRESENT DURING VISIT. VSS, AFEBRILE, LS CLEAR BUT DIM THROUGHOUT, PAIN R SHOULDER, ON SCHEDULED PAIN REGIMEN, FOLLOWED BY PAIN MGT. NO ISSUES WITH BOWELS OR BLADDER. APPETITE ADEQUATE. EDUCATION: DEEP BREATHING TECHNIQUES, HEAT TO AFFECTED AREA TO HELP MANAGE PAIN INTERVENTIONS NEEDED AT NEXT VISIT: ASSESSMENT COMMUNICATION WITH MD: Favio NEXT MD APPOINTMENT: PCP 12/13 PT AND CAREGIVER INSTRUCTED TO CALL [facility] WITH ANY QUESTIONS OR CONCERNS AND/OR CHANGES IN CONDITION. PT AND CAREGIVER VERBALIZED UNDERSTANDING. MALA MELENDEZ LPN</paragraph> <paragraph>[Visit Date: 2024 by BERNA GOODMAN ([facility]) [facility] - OT]:</paragraph><paragraph>PATIENT SEEN FOR SKILLED OT TREATMENT 12-09-24. PATIENTIS PRESENTING WITH SIGNIFICANT PAIN IN BACK AND ARM AND PATIENT IS IN TEARS AT TIME OF OT ARRIVAL. PATIENT AND FAMILY ARE VERY UPSET THAT PAIN MGT CLINIC IS NOT ABLE TO HELP PATENT AND HAVE CHANGED PATIENT MED OPTIONS TO DECREASE AVAILABILITY OF PATIENT MEDS. OT PROVIDED JOINT PROTECTION, WORK SIMP AND ENERGY CONSERVATION INTERVENTION AND TEACHINGS TO PATIENT AND FAMILY TODAY WITH GOOD RETURN UNDERSTANDING BY PATIENT AND FAMILY. OT DEFERRED THER EX DUE TO PAIN. FUNCTIONAL TRANSFER TRG SIT TO STAND USING COMPENSATORY TECH TO PROTECT RIGHT ARM DUE TO PAIN. BARRIERS: WEAKNESS, PAIN ,SOB DC PLANNING ONGOING. PATIENT REMAINS HOMEBOUND DUE TO TAXING EFFORT TO LEAVE HOME AND ASSIST OF ANOTHER PERSON DUE TO WEAKNESSS.</paragraph> <paragraph>[Visit Date: 2024 by KARINA CORONA RN]:</paragraph><paragraph>SNV 12/07/24 PT A/OX3, STATES HAS AN APPT TODAY WITH PAIN MANAGEMENT 12/07/24, PCP 12/20/24. PT DENIES ANY FEVERS, CHILLS, N/V/D, FALLS, ED VISIT, MEDICATION CHANGES SINCE LAST VISIT, ABNORMAL SOB, CHEST PAIN. SN ASSESSMENT LUNG SOUNDS NO WHEEZING OR CRACKLES, DIMINISHED, SKIN DRY INTACT, NO LOWER EXTREMETY EDEMA, BS X4, LBM TODAY. PT EDUCATED ON CO0D S/S OF EXARCERBATION WELL O2 SAFETY PT VERBALIZED UNDERSTANDING. PT EDUCATED ON CALLING [facility] FOR ANY CONCERNS OR CHANGE IN CONDITIONSVAS WELL NEXT SN VISIT PT VERBALIZED UNDERSTANDING AND AGREES,WITH PLAN.</paragraph> Encounters Start Date/Time End Date/Time Encounter Type Admission Type Attending [facility] Care Facility Care Department Encounter ID Discharge Date Discharge Status Discharge Condition Discharge Reason Percent Goals Met 2024-11-24 00:00:00 2025-01-22 00:00:00 Outpatient [facility] [id number]
== END 2024-12-13 13:56 | disposition home or self-care (01) ==
LOC: HO.LAB 13:55
PROVIDERS: Absent Provider Internal Medicine; PCP Physician Assistant Medical; Visit Provider Physician Assistant Medical
DX: G89.4 Chronic pain syndrome (principal); N41.9 Inflammatory disease of prostate, unspecified; S32.009A Unspecified fracture of unspecified lumbar vertebra, initial encounter for closed fracture; F41.0 Panic disorder [episodic paroxysmal anxiety]; Z79.82 Long term (current) use of aspirin; Z79.84 Long term (current) use of oral hypoglycemic drugs; Z79.890 Hormone replacement therapy; Z79.891 Long term (current) use of opiate analgesic; Z79.52 Long term (current) use of systemic steroids; Z79.899 Other long term (current) drug therapy
CPT/HCPCS: 80307; 96127; 99212

== ENCOUNTER 2024-12-29 11:57 | Outpatient (REF) | payer MEDICARE, MEDICAID, SELFPAY ==
--- OUTSIDE RECORDS SUMMARY | 2024-12-29 12:40 | XMS_ITS | Encounter Summary ---
Author Organization [employer] Address [address] [facility] 7 [place] [address] Care Team Providers Care Supervisor Cigar Processing Name Role Phone Unavailable Primary Care Provider Unavailabl e Reason for Visit * Reason Onset Date Comments Hospital Follow-up 11/14/2024 Encounter Details Date Type Department Care Team ([facility] st Contact Info) Description 11/14/2024 Telephone C [facility] [address], [place] [phone] Jhonathan Valles MD [address] [place] [address] Hospital Follow-up Social History Tobacco Use Types Packs/Day Years Used Date Smoking Tobacco: Never Assessed Sex and Gender Information Value Date Recorded Sex Assigned at Male 11/17/2024 2:22 PM EDT Legal Sex Male 1:45 PM EDT Gender Identity Male 11/17/2024 2:22 PM EDT Sexual Orientation Don't know 11/17/2024 2: 22 PM EDT documented as of this encounter Miscellaneous Notes * Telephone Encounter - Eusebio Champion - 11/14/2024 1:21 PM EDT [facility]. [facility] Date of admission: [facility](11/06-11/09) [facility] from (11/09- current. Will be getting discharged on 11/19) Diagnosed: Pneumonia Copd *Send message to [facility] Clinical Care Coordinators documented in this encounter Plan of Treatment Not on file documented as of this encounter Visit Diagnoses Not on filedocumented in this encounter
--- OUTSIDE RECORDS SUMMARY | 2024-12-29 12:40 | XMS_ITS | Encounter Summary ---
Author Organization [facility] Address [address] [place] [address] Care Team Providers Care Systems Analyst Engineer Name Role Phone Physician, No Pcp Primary Care Provider Unavaila ble Encounter Details Date Type Department Care Team (Late st Contact Info) Description 11/10/2024 Lab Requisition [facility] - Main Lab [address] [facility] [place] [address] Radha Lucas PA [address] [place] [address] Encounter for other general examination Social History [...] Procedure Name Priority Date/Time Associated Diagnosis Comments CBC WITH AUTO DIFFERENTIAL Routine 11/10/2024 6:31 AM EDT Encounter for other general examination CBC AND DIFFERENTIAL Routine 11/10/2024 6:31 AM EDT Encounter for other general examination MAGNESIUM Routine 11/10/2024 6:31 AM EDT Encounter for other general examination COMPREHENSIVE METABOLIC PANEL Routine 11/10/2024 6:31 AM EDT Encounter for other general examination documented in this encounter Results * (ABNORMAL) CBC auto differential (11/10/2024 6:31 AM EDT) WBC 10.6 4.8 - 10.8 K/mcL LAB HEMETOLOGY METHOD 11/10/2024 11:30 AM EDT [facility] RBC 4.40(L) 4.50 - 5.50 M/mcL LAB HEMETOLOGY METHOD 11/10/2024 11:30 AM [facility] Hemoglobin 13.9 13.5 - 17.5 g/dL LAB HEMETOLOGY METHOD 11/10/2024 11:30 AM [facility] Hematocrit 43.4 42.0 - 54.0 % LAB HEMETOLOGY METHOD 11/10/2024 11:30 AM [facility] MCV 97.7 79.0 - 98.0 FL LAB HEMETOLOGY METHOD 11/10/2024 11:30 AM [facility] MCH 31.3 27.0 - 32.0 pcg LAB HEMETOLOGY METHOD 11/10/2024 11:30 AM [facility] MCHC 32.0 32.0 - 37.0 g/dL LAB HEMETOLOGY METHOD 11/10/2024 11:30 AM [facility] RDW 14.4 11.0 - 15.0 % LAB HEMETOLOGY METHOD 11/10/2024 11:30 AM [facility] Platelets 225 130 - 400 K/mcL LAB HEMETOLOGY METHOD 11/10/2024 11:30 AM [facility] MPV 11.4(H) 7.0 - 11.0 FL LAB HEMETOLOGY METHOD 11/10/2024 11:30 AM [facility] NRBC 0.0 <1.0 % LAB HEMETOLOGY METHOD 11/10/2024 11:30 AM [facility] NRBC Absolute 0.00 <0.10 K/mcL LAB HEMETOLOGY METHOD 11/10/2024 11:30 AM [facility] Neutrophils Relative 66.6 % LAB HEMETOLOGY METHOD 11/10/2024 11:30 AM [facility] Lymphocytes Relative 18.3 % LAB HEMETOLOGY METHOD 11/10/2024 11:30 AM [facility] Monocytes Relative 11.7 % LAB HEMETOLOGY METHOD 11/10/2024 11:30 AM [facility] Eosinophils Relative 1.9 % LAB HEMETOLOGY METHOD 11/10/2024 11:30 AM [facility] Basophils Relative 0.7 % LAB HEMETOLOGY METHOD 11/10/2024 11:30 AM [facility] Immature Granulocytes Relative 0.8 % LAB HEMETOLOGY METHOD 11/10/2024 11:30 AM [facility] Neutrophils Absolute 7.09(H) 1.50 - 7.00 K/mcL LAB HEMETOLOGY METHOD 11/10/2024 11:30 AM [facility] Lymphocytes Absolute 1.95 1.00 - 5.00 K/mcL LAB HEMETOLOGY METHOD 11/10/2024 11:30 AM [facility] Monocytes Absolute 1.24(H) 0.20 - 1.00 K/mcL LAB HEMETOLOGY METHOD 11/10/2024 11:30 AM [facility] Eosinophils Absolute 0.20 0.00 - 0.50 K/mcL LAB HEMETOLOGY METHOD 11/10/2024 11:30 AM [facility] Basophils Absolute 0.07 0.00 - 0.20 K/mcL LAB HEMETOLOGY METHOD 11/10/2024 11:30 AM [facility] Immature Granulocytes Absolute 0.09(H) 0.00 - 0.03 K/mcL LAB HEMETOLOGY METHOD 11/10/2024 11:30 AM [facility] Blood Venous blood specimen / Unknown Venipuncture / Unknown 11/10/2024 6:31 AM EDT 11/10/2024 11:10 AM EDT Radha SALGUERO LAB BLOOD ORDERABLES Final Re sult [facility] [address] [place] [address], [place] [phone] * Magnesium (11/10/2024 6:31 AM EDT) Pathologist [facility] Magnesium 2.5 1.9 - 2.6 mg/dL LAB CHEMISTRY METHOD 11/10/2024 12:13 PM EDT [facility] Blood Venous blood specimen / Unknown Venipuncture / Unknown 11/10/2024 6:31 AM EDT 11/10/2024 11:10 AM EDT Radha SALGUERO LAB BLOOD ORDERABLES Final Re sult Performing Organization Address City/[facility]/ZIP Co de Phone Number [facility] [address] [place] [address], [place] [phone] * (ABNORMAL) Comprehensive metabolic panel (11/10/2024 6:31 AM EDT) [facility] Sodium 141 133 - 145 mmol/L LAB CHEMISTRY METHOD 11/10/2024 12:17 PM [facility] Potassium 3.8 3.5 - 5.5 mmol/L LAB CHEMISTRY METHOD 11/10/2024 12:17 PM [facility] Chloride 103 96 - 110 mmol/L LAB CHEMISTRY METHOD 11/10/2024 12:17 PM [facility] CO2 31 21 - 32 mmol/L LAB CHEMISTRY METHOD 11/10/2024 12:17 PM [facility] Anion Gap 7 3 - 11 LAB CHEMISTRY METHOD 11/10/2024 12:17 PM [facility] Glucose 92 70 - 100 mg/dL LAB CHEMISTRY METHOD 11/10/2024 12:17 PM [facility] BUN 32(H) 5 - 25 mg/dL LAB CHEMISTRY METHOD 11/10/2024 12:17 PM [facility] Creatinine 1.20 0.70 - 1.30 mg/dL LAB CHEMISTRY METHOD 11/10/2024 12:17 PM [facility] eGFR 62 >=60 mL/min/1. 73m2 LAB CHEMISTRY METHOD 11/10/2024 12:17 PM [facility] Comment:Calculation based on the Chronic Kidney Disease Epidemiology Collaboration (CKD-EPI) equation refit without adjustment for race. BUN/Creatinine Ratio 26.7 LAB CHEMISTRY METHOD 11/10/2024 12:17 PM [facility] Calcium 9.1 8.5 - 10.5 mg/dL LAB CHEMISTRY METHOD 11/10/2024 12:17 PM [facility] AST (SGOT) 12 10 - 42 unit/L LAB CHEMISTRY METHOD 11/10/2024 12:17 PM [facility] ALT (SGPT) 18 10 - 60 unit/L LAB CHEMISTRY METHOD 11/10/2024 12:17 PM [facility] Alkaline Phosphatase 168(H) 42 - 121 unit/L LAB CHEMISTRY METHOD 11/10/2024 12:17 PM [facility] Total Protein 6.4 6.0 - 8.0 g/dL LAB CHEMISTRY METHOD 11/10/2024 12:17 PM [facility] Albumin 3.3 3.2 - 5.0 g/dL LAB CHEMISTRY METHOD 11/10/2024 12:17 PM [facility] Total Bilirubin 0.5 0.0 - 1.4 mg/dL LAB CHEMISTRY METHOD 11/10/2024 12:17 PM [facility] Blood Venous blood specimen / Unknown Venipuncture / Unknown 11/10/2024 6:31 AM EDT 11/10/2024 11:10 AM EDT us Radha SALGUERO LAB BLOOD ORDERABLES Final Re sult [facility] [address] [place] [address], documented in this encounter Visit Diagnoses Diagnosis Encounter for other general examination documented in this encounter Care Teams Systems Analyst Engineer Relationship Specialty Start Date End Date Physician, No Pcp PCP - General 11/10/24 documented as of this encounter
--- OUTSIDE RECORDS SUMMARY | 2024-12-29 12:40 | XMS_ITS | Encounter Summary ---
Author Organization [facility] Address [address] [place] [address] Care Team Providers Care Client Relationship Executive Name Role Phone Physician, No Pcp Primary Care Provider Unavaila ble Encounter Details Date Type Department Care Team (Late st Contact Info) Description 11/17/2024 Lab Requisition [facility] - Main Lab [address] [facility] [place] [address] Johnathon Foy PA [address] [address] Encounter for other general examination Social History [...] Procedure Name Priority Date/Time Associated Diagnosis Comments BASIC METABOLIC PANEL Routine 11/17/2024 7:01 AM EDT Encounter for other general examination documented in this encounter Results * (ABNORMAL) Basic metabolic panel (11/17/2024 7:01 AM EDT) Sodium 140 133 - 145 mmol/L LAB CHEMISTRY METHOD 11/17/2024 12:31 PM EDT [facility] Potassium 3.6 3.5 - 5.5 mmol/L LAB CHEMISTRY METHOD 11/17/2024 12:31 PM EDT [facility] Chloride 103 96 - 110 mmol/L LAB CHEMISTRY METHOD 11/17/2024 12:31 PM EDT [facility] CO2 28 21 - 32 mmol/L LAB CHEMISTRY METHOD 11/17/2024 12:31 PM EDT [facility] Anion Gap 9 3 - 11 LAB CHEMISTRY METHOD 11/17/2024 12:31 PM EDT [facility] Glucose 134(H) 70 - 100 mg/dL LAB CHEMISTRY METHOD 11/17/2024 12:31 PM [facility] BUN 32(H) 5 - 25 mg/dL LAB CHEMISTRY METHOD 11/17/2024 12:31 PM [facility] Creatinine 1.25 0.70 - 1.30 mg/dL LAB CHEMISTRY METHOD 11/17/2024 12:31 PM [facility] eGFR 59(L) >=60 mL/min/1. 73m2 LAB CHEMISTRY METHOD 11/17/2024 12:31 PM [facility] Comment:Calculation based on the Chronic Kidney Disease Epidemiology Collaboration (CKD-EPI) equation refit without adjustment for race. BUN/Creatinine Ratio 25.6 LAB CHEMISTRY METHOD 11/17/2024 12:31 PM [facility] Calcium 8.8 8.5 - 10.5 mg/dL LAB CHEMISTRY METHOD 11/17/2024 12:31 PM [facility] Blood Venous blood specimen / Unknown Venipuncture / Unknown 11/17/2024 7:01 AM EDT 11/17/2024 10:50 AM EDT us Johnathon SALGUERO LAB BLOOD ORDERABLES Final R esult [facility] [address] [place] [address], documented in this encounter Visit Diagnoses Diagnosis Encounter for other general examination documented in this encounter Care Teams Client Relationship Executive Relationship Specialty Start Date End Date Physician, No Pcp PCP - General 11/10/24 documented as of this encounter
--- OUTSIDE RECORDS SUMMARY | 2024-12-29 12:40 | XMS_ITS | Encounter Summary ---
Author Organization [facility] Address [address] [place] [address] Care Team Providers Care Delivery Engineer Name Role Phone Physician, No Pcp Primary Care Provider Unavaila ble Encounter Details Date Type Department Care Team (Late st Contact Info) Description 11/11/[address] [facility] - Main Lab [address] [facility] [place] [address] Debbie Mccann PA [address] [place] [address] Encounter for other general examination Social History [...] SALGUERO LAB BLOOD ORDERABLES Final Resul t [facility] [address] [place] [address], documented in this encounter Visit Diagnoses Diagnosis Encounter for other general examination documented in this encounter Care Teams Delivery Engineer Relationship Specialty Start Date End Date Physician, No Pcp PCP - General 11/10/24 documented as of this encounter
--- OUTSIDE RECORDS SUMMARY | 2024-12-29 12:40 | XMS_ITS | Clinical Summary ---
Author Organization [facility] Address [address] [facility] [address] [place] [address] Care Team Providers Care Lcsw Name Role Phone Unavailable Primary Care Provider [...] Type Department Care Team Description 11/23/[address] [address] Catrachito Price MD Appointment Request 11/21/2024 Telephone [facility] [address] [place] [address] Viki Rojas MD No Show 11/20/[address] [address] Savanah Avina PharmD Hospital Follow-up 11/20/2024 Telephone [facility] [address] [place] [address] Sridevi Bourne MA Televisit ADJUSTER 11/20/2024 Travel 11/14/2024 Patient Outreach [address] [address] Viki Rojas MD Transition Of Care (Tcm) (HDF- is already scheduled) 11/14/2024 Patient Outreach [address] [address] Catrachito Price MD Transition Of Care (Tcm) (HDF- Unscheduled - (already has a HDF appt) ) 11/14/2024 Telephone [facility] [address] [place] [address] Jhonathan Valles MD Hospital Follow-up 11/01/2024 Telephone [facility] [address] [place] [address] Jhonathan Valles MD Hospital Follow-up 11/01/2024 Patient Outreach [facility] [address] [place] [address] Jhonathan Valles MD Transition Of Care (Tcm) (HDF/ADJUSTER Combined.) from Last 3 Months Immunizations Immunization [...] - 1-dose 75+ series) 2022 COVID-19 Vaccine (5 - season) 2024 07/28/2021, 02/27/2021, 08/12/2020, Additional history exists Influenza [...] age to complete this topic Insurance MEDICARE [facility]
--- OUTSIDE RECORDS SUMMARY | 2024-12-29 12:40 | XMS_ITS | Clinical Summary ---
Author Organization [facility] Address [address] [place] [address] Phone Care Team Providers Care School Bus Driver/Custodian Name Role Phone Mj Bonilla MD Primary Care Provider [phone] Allergies Active Allergy Reactions Criticality Noted Date [...] without congestive he art failure 07/04/2020 Immunizations Immunization Administration Dates Next Due Pneumococcal Polysaccharide 07/27/2013 [...] Due Date Last Done Comments Pneumococcal Vaccine: 50+ Ye ars (2 of 2 - PCV) 07/27/2014 07/27/2013 Influenza Vaccine (#1) 2024 Pneumococcal Vaccine: Peds ( 0 to 5 Years) and At-Risk Patients (6 to 49 Years) Discontinued 07/27/2013 Hepatitis B Vaccine Aged Out No longe r eligible based on patient's age to complete this topic Insurance Medicaid [place] Medicare Medicaid [place] Medicare Care Teams School Bus Driver/Custodian Relationship Specialty Start Date End Date Mj Bonilla MD [address] [place] [address] PCP - General 05/06/20
--- OUTSIDE RECORDS SUMMARY | 2024-12-29 12:40 | XMS_ITS | Clinical Summary ---
Author Organization [address] [facility] Address [address] [place] [address] Phone Care Team Providers Care Ethanol Operations Manager Name Role Phone Physician, No Pcp Primary Care Provider Unavaila ble Encounters Date Type Department Care Team Description 11/20/2024 Lab Requisition [facility] [address] [place] [address] Debbie Mccann PA Encounter for other general examination 11/17/2024 Lab Requisition [facility] [address] [place] [address] Debbie Mccann PA Encounter for other general examination 11/17/2024 Lab Requisition [facility] [address] [place] [address] Johnathon Foy PA Encounter for other general examination 11/15/2024 Lab Requisition [facility] [address] [place] [address] Caty Hawk PA Encounter for other general examination 11/11/2024 Lab Requisition [facility] [address] [place] [address] Debbie Mccann PA Encounter for other general examination 11/10/2024 Lab Requisition [facility] [address] [place] [address] Radha Lucas PA Encounter for other general examination from Last 3 Months Social History Tobacco Use Types Packs/Day Years Used Date Smoking Tobacco: Never Assessed Sex and Gender Information Value Date Recorded Sex Assigned at Not on file Legal Sex Male 8:54 PM EST Gender Identity Not on file Sexual Orientation Not on file Plan of Treatment Health Maintenance Due Date Last Done Comments DTaP,Tdap,and Td Vaccines (1 - Tdap) 1966 Zoster Vaccines (1 of 2) 1997 Pneumococcal Vaccine: 50+ Ye ars (2 of 2 - PCV) 07/27/2014 07/27/2013 RSV Immunization Adult Patie nts (1 - 1-dose 75+ series) 2022 Cholesterol Screening (Lipid Panel) 05/21/2023 Falls Risk Assessment 05/21/2023 Hepatitis C Screening 05/21/2023 Medicare Annual Wellness Visit 05/21/2023 Social Influencers of Health Screening 05/21/2023 Depression Screening 04/26/2024 COVID-19 Vaccine ( - 2023-2 5 season) 2024 Influenza Vaccine (#1) 2024 HIB Vaccines Aged Out No longer eligi [...] on patient's age to complete this topic MMR Vaccines Aged Out No longer eligi ble based on patient's age to complete this topic Meningococcal ACWY Vaccine Aged Out N o longer eligible based on patient's age to complete this topic Meningococcal B Vaccine Aged Out No l onger eligible based on patient's age to complete this topic RSV Immunization Patients Un rupert 20 months Aged Out No longer eligible b ased on patient's age to complete this topic Varicella Vaccines Aged Out No longer eligible based on patient's age to complete this topic Procedures Procedure Name Priority Date/Time Associated Diagnosis Comments CBC WITH AUTO DIFFERENTIAL Routine 11/20/2024 5:49 AM EDT Encounter for other general examination MAGNESIUM Routine 11/20/2024 5:49 AM EDT Encounter for other general examination COMPREHENSIVE METABOLIC PANEL Routine 11/20/2024 5:49 AM EDT Encounter for other general examination CBC AND DIFFERENTIAL Routine 11/20/2024 5:49 AM EDT Encounter for other general examination CBC WITH AUTO DIFFERENTIAL STAT 11/17/2024 12:50 PM EDT Encounter for other general examination LACTATE STAT 11/17/2024 12:50 PM EDT Encounter for other general examination CBC AND DIFFERENTIAL STAT 11/17/2024 12:50 PM EDT Encounter for other general examination BASIC METABOLIC PANEL Routine 11/17/2024 7:01 AM EDT Encounter for other general examination COMPREHENSIVE METABOLIC PANEL Routine 11/15/2024 6:44 AM EDT Encounter for other general examination COMPLETE BLOOD COUNT Routine 11/15/2024 6:44 AM EDT Encounter for other general examination HEMOGLOBIN A1C Routine 11/11/2024 5:59 AM EDT Encounter for other general examination CBC WITH AUTO DIFFERENTIAL Routine 11/10/2024 6:31 AM EDT Encounter for other general examination MAGNESIUM Routine 11/10/2024 6:31 AM EDT Encounter for other general examination COMPREHENSIVE METABOLIC PANEL Routine 11/10/2024 6:31 AM EDT Encounter for other general examination CBC AND DIFFERENTIAL Routine 11/10/2024 6:31 AM EDT Encounter for other general examination from Last 3 Months Results * (ABNORMAL) CBC auto differential (11/20/2024 5:49 AM EDT) Only the most recent of3 resultswithin the time period is included. [facility] Signature WBC 7.1 4.8 - 10.8 K/mcL LAB HEMETOLOGY METHOD 11/20/2024 1:04 PM EDT [facility] RBC 3.70(L) 4.50 - 5.50 M/[facility] LAB HEMETOLOGY METHOD 11/20/2024 1:04 PM [facility] Hemoglobin 11.5(L) 13.5 - 17.5 g/dL LAB HEMETOLOGY METHOD 11/20/2024 1:04 PM [facility] LAB Hematocrit 36.7(L) 42.0 - 54.0 % LAB HEMETOLOGY METHOD 11/20/2024 1:04 PM [facility] LAB MCV 98.9(H) 79.0 - 98.0 FL LAB HEMETOLOGY METHOD 11/20/2024 1:04 PM [facility] LAB MCH 31.0 27.0 - 32.0 pcg LAB HEMETOLOGY METHOD 11/20/2024 1:04 PM [facility] LAB MCHC 31.3(L) 32.0 - 37.0 g/dL LAB HEMETOLOGY METHOD 11/20/2024 1:04 PM [facility] RDW 14.8 11.0 - 15.0 % LAB HEMETOLOGY METHOD 11/20/2024 1:04 [facility] LAB Platelets 137 130 - 400 K/mcL LAB HEMETOLOGY METHOD 11/20/2024 1:04 PM [facility] MPV 11.9(H) 7.0 - 11.0 FL LAB HEMETOLOGY METHOD 11/20/2024 1:04 PM [facility] LAB NRBC 0.0 <1.0 % LAB HEMETOLOGY METHOD 11/20/2024 1:04 PM [facility] LAB NRBC Absolute 0.00 <0.10 K/mcL LAB HEMETOLOGY METHOD 11/20/2024 1:04 PM [facility] Neutrophils Relative 59.0 % LAB HEMETOLOGY METHOD 11/20/2024 1:04 PM [facility] Lymphocytes Relative 20.1 % LAB HEMETOLOGY METHOD 11/20/2024 1:04 PM EDT [facility] Monocytes Relative 12.1 % LAB HEMETOLOGY METHOD 11/20/2024 1:04 PM [facility] Eosinophils Relative 5.8 % LAB HEMETOLOGY METHOD 11/20/2024 1:04 PM [facility] Basophils Relative 0.6 % LAB HEMETOLOGY METHOD 11/20/2024 1:04 PM [facility] Immature Granulocytes Relative 2.4 % LAB HEMETOLOGY METHOD 11/20/2024 1:04 PM [facility] Neutrophils Absolute 4.18 1.50 - 7.00 K/mcL LAB HEMETOLOGY METHOD 11/20/2024 1:04 PM [facility] Lymphocytes Absolute 1.42 1.00 - 5.00 K/mcL LAB HEMETOLOGY METHOD 11/20/2024 1:04 PM [facility] Monocytes Absolute 0.86 0.20 - 1.00 K/mcL LAB HEMETOLOGY METHOD 11/20/2024 1:04 PM [facility] Eosinophils Absolute 0.41 0.00 - 0.50 K/mcL LAB HEMETOLOGY METHOD 11/20/2024 1:04 PM [facility] Basophils Absolute 0.04 0.00 - 0.20 K/mcL LAB HEMETOLOGY METHOD 11/20/2024 1:04 PM [facility] Immature Granulocytes Absolute 0.17(H) 0.00 - 0.03 K/mcL LAB HEMETOLOGY METHOD 11/20/2024 1:04 PM [facility] Blood Venous blood specimen / Unknown Venipuncture / Unknown 11/20/2024 5:49 AM EDT 11/20/2024 10:04 AM EDT us Debbie SALGUERO LAB BLOOD ORDERABLES Final Resul t Performing Organization Address [facility]/ZIP Co de Phone Number [facility] [address] [place] [address], [place] [phone] * Magnesium (11/20/2024 5:49 AM EDT) Only the most recent of2 resultswithin the time period is included. Magnesium 2.5 1.9 - 2.6 mg/dL LAB CHEMISTRY METHOD 11/20/2024 11:58 AM EDT [facility] Blood Venous blood specimen / Unknown Venipuncture / Unknown 11/20/2024 5:49 AM EDT 11/20/2024 10:04 AM EDT Debbie SALGUERO LAB BLOOD ORDERABLES Final Resul t Performing Organization Address [facility] Co de Phone Number [facility] [address] [place] [address], [place] [phone] * (ABNORMAL) Comprehensive metabolic panel (11/20/2024 5:49 AM EDT) Only the most recent of3 resultswithin the time period is included. Sodium 140 133 - 145 mmol/L LAB CHEMISTRY METHOD 11/20/2024 12:07 PM [facility] Potassium 3.3(L) 3.5 - 5.5 mmol/L LAB CHEMISTRY METHOD 11/20/2024 12:07 PM [facility] Chloride 104 96 - 110 mmol/L LAB CHEMISTRY METHOD 11/20/2024 12:07 PM [facility] CO2 28 21 - 32 mmol/L LAB CHEMISTRY METHOD 11/20/2024 12:07 PM [facility] Anion Gap 8 3 - 11 LAB CHEMISTRY METHOD 11/20/2024 12:07 PM [facility] Glucose 88 70 - 100 mg/dL LAB CHEMISTRY METHOD 11/20/2024 12:07 PM [facility] BUN 27(H) 5 - 25 mg/dL LAB CHEMISTRY METHOD 11/20/2024 12:07 PM [facility] Creatinine 1.34(H) 0.70 - 1.30 mg/dL LAB CHEMISTRY METHOD 11/20/2024 12:07 PM [facility] LAB eGFR 55(L) >=60 mL/min/1. 73m2 LAB CHEMISTRY METHOD 11/20/2024 12:07 PM [facility] Comment:Calculation based on the Chronic Kidney Disease Epidemiology Collaboration (CKD-EPI) equation refit without adjustment for race. BUN/Creatinine Ratio 20.1 LAB CHEMISTRY METHOD 11/20/2024 12:07 PM [facility] Calcium 8.4(L) 8.5 - 10.5 mg/dL LAB CHEMISTRY METHOD 11/20/2024 12:07 PM [facility] AST (SGOT) 20 10 - 42 unit/L LAB CHEMISTRY METHOD 11/20/2024 12:07 PM [facility] ALT (SGPT) 21 10 - 60 unit/L LAB CHEMISTRY METHOD 11/20/2024 12:07 PM [facility] Alkaline Phosphatase 120 42 - 121 unit/L LAB CHEMISTRY METHOD 11/20/2024 12:07 PM [facility] Total Protein 5.5(L) 6.0 - 8.0 g/dL LAB CHEMISTRY METHOD 11/20/2024 12:07 PM [facility] Albumin 2.9(L) 3.2 - 5.0 g/dL LAB CHEMISTRY METHOD 11/20/2024 12:07 PM [facility] Total Bilirubin 0.6 0.0 - 1.4 mg/dL LAB CHEMISTRY METHOD 11/20/2024 12:07 PM [facility] Blood Venous blood specimen / Unknown Venipuncture / Unknown 11/20/2024 5:49 AM EDT 11/20/2024 10:04 AM EDT us Debbie SALGUERO LAB BLOOD ORDERABLES Final Resul t [facility] [address] [place] [address], [place] [phone] * Lactate (11/17/2024 12:50 PM EDT) Lactate 1.4 0.4 - 2.0 mmol/L LAB CHEMISTRY METHOD 11/17/2024 2:34 PM EDT [facility] Blood Venous blood specimen / Unknown 11/17/2024 12:50 PM EDT 11/17/2024 1:28 PM EDT us Debbie SALGUERO LAB BLOOD ORDERABLES Final Resul t Performing Organization Address [facility]/ZIP Co de Phone Number [facility] [address] [place] [address], [place] [phone] * (ABNORMAL) Basic metabolic panel (11/17/2024 7:01 AM EDT) Pathologist [facility] Sodium 140 133 - 145 mmol/L LAB CHEMISTRY METHOD 11/17/2024 12:31 PM EDT [facility] Potassium 3.6 3.5 - 5.5 mmol/L LAB CHEMISTRY METHOD 11/17/2024 12:31 PM EDT [facility] Chloride 103 96 - 110 mmol/L LAB CHEMISTRY METHOD 11/17/2024 12:31 PM EDT [facility] CO2 28 21 - 32 mmol/L LAB CHEMISTRY METHOD 11/17/2024 12:31 PM EDT [facility] Anion Gap 9 3 - 11 LAB CHEMISTRY METHOD 11/17[facility]24 [facility] Glucose 134(H) 70 - 100 mg/dL LAB CHEMISTRY METHOD 11/17/2024 12:31 PM EDT [facility] BUN 32(H) 5 - 25 mg/dL LAB CHEMISTRY METHOD 11/17/2024 12:31 PM EDT [facility] Creatinine 1.25 0.70 - 1.30 mg/dL LAB CHEMISTRY METHOD 11/17/2024 12:31 PM EDT [facility] eGFR 59(L) >=60 mL/min/1. 73m2 LAB CHEMISTRY METHOD 11/17/2024 12:31 PM EDT [facility] Comment:Calculation based on the Chronic Kidney Disease Epidemiology Collaboration (CKD-EPI) equation refit without adjustment for race. BUN/Creatinine Ratio 25.6 LAB CHEMISTRY METHOD 11/17/2024 12:31 PM EDT [facility] Calcium 8.8 8.5 - 10.5 mg/dL LAB CHEMISTRY METHOD 11/17/2024 12:31 PM EDT [facility] Blood Venous blood specimen / Unknown Venipuncture / Unknown 11/17/2024 7:01 AM EDT 11/17/2024 10:50 AM EDT us Johnathon SALGUERO LAB BLOOD ORDERABLES Final R esult [facility] [address] [place] [address], * (ABNORMAL) Complete blood count (11/15/2024 6:44 AM EDT) WBC 10.8 4.8 - 10.8 K/mcL LAB HEMETOLOGY METHOD 11/15/2024 12:26 PM EDT [facility] RBC 4.30(L) 4.50 - 5.50 M/mcL LAB HEMETOLOGY METHOD 11/15/2024 12:26 PM EDT [facility] Hemoglobin 13.2(L) 13.5 - 17.5 g/dL LAB HEMETOLOGY METHOD 11/15/2024 12:26 PM EDT [facility] Hematocrit 41.9(L) 42.0 - 54.0 % LAB HEMETOLOGY METHOD 11/15/2024 12:26 PM EDT [facility] MCV 98.1(H) 79.0 - 98.0 FL LAB HEMETOLOGY METHOD 11/15/2024 12:26 PM EDT [facility] MCH 30.9 27.0 - 32.0 pcg LAB HEMETOLOGY METHOD 11/15/2024 12:26 PM EDT [facility] MCHC 31.5(L) 32.0 - 37.0 g/dL LAB HEMETOLOGY METHOD 11/15/2024 12:26 PM EDT [facility] RDW 14.8 11.0 - 15.0 % LAB HEMETOLOGY METHOD 11/15/2024 12:26 PM EDT [facility] Platelets 194 130 - 400 K/mcL LAB HEMETOLOGY METHOD 11/15/2024 12:26 PM EDT [facility] MPV 11.8(H) 7.0 - 11.0 FL LAB HEMETOLOGY METHOD 11/15/2024 12:26 PM EDT [facility] NRBC 0.0 <1.0 % LAB HEMETOLOGY METHOD 11/15/2024 12:26 PM EDT [facility] NRBC Absolute 0.00 <0.10 K/mcL LAB HEMETOLOGY METHOD 11/15/2024 12:26 PM EDT [facility] Blood Venous blood specimen / Unknown Venipuncture / Unknown 11/15/2024 6:44 AM EDT 11/15/2024 10:12 AM EDT us Caty SALGUERO LAB BLOOD ORDERABLES Final Re sult [facility] [address] [place] [address], [place] [phone] * (ABNORMAL) Hemoglobin A1c (11/11/2024 5:59 AM EDT) Hemoglobin A1C 6.6(H) <6.5 % LAB CHEMISTRY METHOD 11/12/2024 11:13 AM EDT [facility] Mean Bld Glu Estim. 143 mg/dL LAB CHEMISTRY METHOD 11/12/2024 11:13 AM EDT [facility] Blood Venous blood specimen / Unknown Venipuncture / Unknown 11/11/2024 5:59 AM EDT 11/11/2024 9:57 AM EDT us Debbie SALGUERO LAB BLOOD ORDERABLES Final Resul t [facility] [address] [place] [address], from Last 3 Months Insurance MEDICARE MEDICAID - [place] Care Teams Ethanol Operations Manager Relationship Specialty Start Date End Date Physician, No Pcp PCP - General 11/10/24
--- OUTSIDE RECORDS SUMMARY | 2024-12-29 12:40 | XMS_ITS | Encounter Summary ---
Author Organization [facility] Address [address] [place] [address] Care Team Providers Care Financial Secretary Name Role Phone Physician, No Pcp Primary Care Provider Unavaila ble Encounter Details Date Type Department Care Team (Late st Contact Info) Description 11/15/2024 Lab Requisition [facility] Main Lab [address] [facility] [employer] [place] [address] Caty Hawk PA [address] [place] [address] Encounter for other general examination Social History [...] Procedure Name Priority Date/Time Associated Diagnosis Comments COMPLETE BLOOD COUNT Routine 11/15/2024 6:44 AM EDT Encounter for other general examination COMPREHENSIVE METABOLIC PANEL Routine 11/15/2024 6:44 AM EDT Encounter for other general examination documented in this encounter Results * (ABNORMAL) Comprehensive metabolic panel (11/15/2024 6:44 AM EDT) Sodium 139 133 - 145 mmol/L LAB CHEMISTRY METHOD 11/15/2024 1:42 PM EDT [facility] Potassium 3.6 3.5 - 5.5 mmol/L LAB CHEMISTRY METHOD 11/15/2024 1:42 PM EDT [facility] Chloride 103 96 - 110 mmol/L LAB CHEMISTRY METHOD 11/15/2024 1:42 PM [facility] CO2 27 21 - 32 mmol/L LAB CHEMISTRY METHOD 11/15/2024 1:42 PM [facility] Anion Gap 9 3 - 11 LAB CHEMISTRY METHOD 11/15/2024 1:42 PM [facility] Glucose 82 70 - 100 mg/dL LAB CHEMISTRY METHOD 11/15/2024 1:42 PM [facility] BUN 42(H) 5 - 25 mg/dL LAB CHEMISTRY METHOD 11/15/2024 1:42 PM [facility] Creatinine 1.50(H) 0.70 - 1.30 mg/dL LAB CHEMISTRY METHOD 11/15/2024 1:42 PM [facility] eGFR 48(L) >=60 mL/min/1. 73m2 LAB CHEMISTRY METHOD 11/15/2024 1:42 PM [facility] Comment:Calculation based on the Chronic Kidney Disease Epidemiology Collaboration (CKD-EPI) equation refit without adjustment for race. BUN/Creatinine Ratio 28.0 LAB CHEMISTRY METHOD 11/15/2024 1:42 PM [facility] Calcium 8.8 8.5 - 10.5 mg/dL LAB CHEMISTRY METHOD 11/15/2024 1:42 PM [facility] AST (SGOT) 24 10 - 42 unit/L LAB CHEMISTRY METHOD 11/15/2024 1:42 PM [facility] Comment:Results verified by repeat testing ALT (SGPT) 23 10 - 60 unit/L LAB CHEMISTRY METHOD 11/15/2024 1:42 PM [facility] Alkaline Phosphatase 152(H) 42 - 121 unit/L LAB CHEMISTRY METHOD 11/15/2024 1:42 PM [facility] Total Protein 6.0 6.0 - 8.0 g/dL LAB CHEMISTRY METHOD 11/15/2024 1:42 PM [facility] Albumin 3.3 3.2 - 5.0 g/dL LAB CHEMISTRY METHOD 11/15/2024 1:42 PM EDT [facility] Total Bilirubin 0.5 0.0 - 1.4 mg/dL LAB CHEMISTRY METHOD 11/15/2024 1:42 PM [facility] Blood Venous blood specimen / Unknown Venipuncture / Unknown 11/15/2024 6:44 AM EDT 11/15/2024 10:12 AM EDT us Caty SALGUERO LAB BLOOD ORDERABLES Final Re sult [facility] [address] [place] [address], [place] [phone] * (ABNORMAL) Complete blood count (11/15/2024 6:44 AM EDT) WBC 10.8 4.8 - 10.8 K/mcL LAB HEMETOLOGY METHOD 11/15/2024 12:26 PM [facility] RBC 4.30(L) 4.50 - 5.50 M/mcL LAB HEMETOLOGY METHOD 11/15/2024 12:26 PM [facility] Hemoglobin 13.2(L) 13.5 - 17.5 g/dL LAB HEMETOLOGY METHOD 11/15/2024 12:26 PM [facility] Hematocrit 41.9(L) 42.0 - 54.0 % LAB HEMETOLOGY METHOD 11/15/2024 12:26 PM [facility] MCV 98.1(H) 79.0 - 98.0 FL LAB HEMETOLOGY METHOD 11/15/2024 12:26 PM [facility] MCH 30.9 27.0 - 32.0 pcg LAB HEMETOLOGY METHOD 11/15/2024 12:26 PM [facility] MCHC 31.5(L) 32.0 - 37.0 g/dL [...] [facility] [address] [place] [address], documented in this encounter Visit Diagnoses Diagnosis Encounter for other general examination documented in this encounter Care Teams Financial Secretary Relationship Specialty Start Date End Date Physician, No Pcp PCP - General 11/10/24 documented as of this encounter
--- OUTSIDE RECORDS SUMMARY | 2024-12-29 12:40 | XMS_ITS | Encounter Summary ---
Author Organization [facility] Address [address] [place] [address] Care Team Providers Care Content Analyst Name Role Phone Physician, No Pcp Primary Care Provider Unavaila ble Encounter Details Date Type Department Care Team (Late st Contact Info) Description 11/20/2024 Lab Requisition [facility] - Main Lab [address] [facility] [place] [address] Debbie Mccann PA [address] [place] [address] Encounter for other general examination Social History [...] encounter Results * (ABNORMAL) CBC auto differential (11/20/2024 5:49 AM EDT) WBC 7.1 4.8 - 10.8 K/[facility] LAB HEMETOLOGY METHOD 11/20/2024 1:04 PM [facility] LAB RBC 3.70(L) 4.50 - 5.50 M/mcL LAB HEMETOLOGY METHOD 11/20/2024 1:04 PM [facility] LAB Hemoglobin 11.5(L) 13.5 - 17.5 g/dL LAB HEMETOLOGY METHOD 11/20/2024 1:04 PM [facility] LAB Hematocrit 36.7(L) 42.0 - 54.0 % LAB HEMETOLOGY METHOD 11/20/2024 1:04 PM [facility] LAB MCV 98.9(H) 79.0 - 98.0 FL LAB HEMETOLOGY METHOD 11/20/2024 1:04 [facility] LAB MCH 31.0 27.0 - 32.0 pcg LAB HEMETOLOGY METHOD 11/20/2024 1:04 [facility] LAB MCHC 31.3(L) 32.0 - 37.0 g/dL LAB HEMETOLOGY METHOD 11/20/2024 1:04 [facility] LAB RDW 14.8 11.0 - 15.0 % LAB HEMETOLOGY METHOD 11/20/2024 1:04 [facility] LAB Platelets 137 130 - 400 K/mcL LAB HEMETOLOGY METHOD 11/20/2024 1:04 [facility] LAB MPV 11.9(H) 7.0 - 11.0 FL LAB HEMETOLOGY METHOD 11/20/2024 1:04 [facility] LAB NRBC 0.0 <1.0 % LAB HEMETOLOGY METHOD 11/20/2024 1:04 [facility] LAB NRBC Absolute 0.00 <0.10 K/mcL LAB HEMETOLOGY METHOD 11/20/2024 1:04 [facility] LAB Neutrophils Relative 59.0 % LAB HEMETOLOGY METHOD [facility]/20[facility] Lymphocytes Relative 20.1 % LAB HEMETOLOGY METHOD 11/20/2024 1:04 PM [facility] LAB Monocytes Relative 12.1 % LAB HEMETOLOGY METHOD 11/20/2024 1:04 PM [facility] LAB Eosinophils Relative 5.8 % LAB HEMETOLOGY METHOD 11/20/2024 1:04 PM [facility] LAB Basophils Relative 0.6 % LAB HEMETOLOGY METHOD 11/20/2024 1:04 PM [facility] LAB Immature Granulocytes Relative 2.4 % LAB HEMETOLOGY METHOD 11/20/2024 1:04 PM [facility] LAB Neutrophils Absolute 4.18 1.50 - 7.00 K/mcL LAB HEMETOLOGY METHOD 11/20/2024 1:04 PM [facility] LAB Lymphocytes Absolute 1.42 1.00 - 5.00 K/mcL LAB HEMETOLOGY METHOD 11/20/2024 1:04 PM [facility] LAB Monocytes Absolute 0.86 0.20 - 1.00 K/mcL LAB HEMETOLOGY METHOD 11/20/2024 1:04 PM [facility] LAB Eosinophils Absolute 0.41 0.00 - 0.50 K/mcL LAB HEMETOLOGY METHOD 11/20/2024 1:04 PM [facility] LAB Basophils Absolute 0.04 0.00 - 0.20 K/mcL LAB HEMETOLOGY METHOD 11/20/2024 1:04 PM [facility] LAB Immature Granulocytes Absolute 0.17(H) 0.00 - 0.03 K/mcL LAB HEMETOLOGY METHOD 11/20/2024 1:04 PM [facility] LAB Blood Venous blood specimen / Unknown Venipuncture / Unknown 11/20/2024 5:49 AM EDT 11/20/2024 10:04 AM EDT us Debbie SALGUERO LAB BLOOD ORDERABLES Final Resul t Performing Organization Address City/[facility]/ZIP Co de Phone Number [facility] LAB [address] [place] [address], [place] [phone] * Magnesium (11/20/2024 5:49 AM EDT) Pathologist [facility] Magnesium 2.5 1.9 - 2.6 mg/dL LAB CHEMISTRY METHOD 11/20/2024 11:58 AM EDT [facility] LAB Blood Venous blood specimen / Unknown Venipuncture / Unknown 11/20/2024 5:49 AM EDT 11/20/2024 10:04 AM EDT us Debbie SALGUERO LAB BLOOD ORDERABLES Final Resul t Performing Organization Address [facility]/ZIP Co de Phone Number [facility] LAB [address] [place] [address], [place] [phone] * (ABNORMAL) Comprehensive metabolic panel (11/20/2024 5:49 AM EDT) [facility] Sodium 140 133 - 145 mmol/L LAB CHEMISTRY METHOD 11/20/2024 12:07 PM [facility] LAB Potassium 3.3(L) 3.5 - 5.5 mmol/L LAB CHEMISTRY METHOD 11/20/2024 12:07 PM EDT [facility] LAB Chloride 104 96 - 110 mmol/L LAB CHEMISTRY METHOD 11/20/2024 12:07 PM [facility] LAB CO2 28 21 - 32 mmol/L LAB CHEMISTRY METHOD 11/20/2024 12:07 PM T [facility] LAB Anion Gap 8 3 - 11 LAB CHEMISTRY METHOD 11/20/2024 12:07 PM [facility] LAB Glucose 88 70 - 100 mg/dL LAB CHEMISTRY METHOD 11/20/2024 12:07 PM [facility] LAB BUN 27(H) 5 - 25 mg/dL LAB CHEMISTRY METHOD 11/20/2024 12:07 PM [facility] LAB Creatinine 1.34(H) 0.70 - 1.30 mg/dL LAB CHEMISTRY METHOD 11/20/2024 12:07 PM [facility] LAB eGFR 55(L) >=60 mL/min/1. 73m2 LAB CHEMISTRY METHOD 11/20/2024 12:07 PM [facility] LAB Comment:Calculation based on the Chronic Kidney Disease Epidemiology Collaboration (CKD-EPI) equation refit without adjustment for race. BUN/Creatinine Ratio 20.1 LAB CHEMISTRY METHOD 11/20/2024 12:07 PM [facility] LAB Calcium 8.4(L) 8.5 - 10.5 mg/dL LAB CHEMISTRY METHOD 11/20/2024 12:07 [facility] LAB AST (SGOT) 20 10 - 42 unit/L LAB CHEMISTRY METHOD 11/20/2024 12:07 [facility] LAB ALT (SGPT) 21 10 - 60 unit/L LAB CHEMISTRY METHOD 11/20/2024 12:07 PM [facility] LAB Alkaline Phosphatase 120 42 - 121 unit/L LAB CHEMISTRY METHOD 11/20/2024 12:07 [facility] LAB Total Protein 5.5(L) 6.0 - 8.0 g/dL LAB CHEMISTRY METHOD 11/20/2024 12:07 PM [facility] LAB Albumin 2.9(L) 3.2 - 5.0 g/dL LAB CHEMISTRY METHOD 11/20/2024 12:07 PM [facility] LAB Total Bilirubin 0.6 0.0 - 1.4 mg/dL LAB CHEMISTRY METHOD 11/20/2024 12:07 PM [facility] LAB Blood Venous blood specimen / Unknown Venipuncture / Unknown 11/20/2024 5:49 AM EDT 11/20/2024 10:04 AM EDT us Debbie SALGUERO LAB BLOOD ORDERABLES Final Resul t [facility]) [facility] LAB [address] [place] [address], [place] [phone] documented in this encounter Visit Diagnoses Diagnosis Encounter for other general examination documented in this encounter Care Teams Content Analyst Relationship Specialty Start Date End Date Physician, No Pcp PCP - General 11/10/24 documented as of this encounter
--- OUTSIDE RECORDS SUMMARY | 2024-12-29 12:40 | XMS_ITS | Encounter Summary ---
Author Organization [facility] Address [address] [place] [address] Phone Care Team Providers Care Social Media Marketing Manager Name Role Phone Mj Bonilla MD Primary Care Provider [phone] Encounter Details Date Type Department Care Team (Late st Contact Info) Description 08/25/2022 Telephone [facility] [address] [place] [address] Caty Krishna Social History Tobacco Use [...] on filedocumented in this encounter Care Teams Social Media Marketing Manager Relationship Specialty Start Date End Date Mj Bonilla MD [address] [place] [address] PCP - General 05/06/20 documented as of this encounter
--- OUTSIDE RECORDS SUMMARY | 2024-12-29 12:40 | XMS_ITS | Encounter Summary ---
Author Organization [facility] Address [address] [place] [address] Care Team Providers Care Public Utilities Sales Representative Name Role Phone Physician, No Pcp Primary Care Provider Unavaila ble Encounter Details Date Type Department Care Team (Late st Contact Info) Description 11/17/2024 Lab Requisition [facility] - Main Lab [address] [place] [address] Debbie Mccann PA [address] [place] [address] Encounter for other general examination Social History [...] Associated Diagnosis Comments CBC WITH AUTO DIFFERENTIAL STAT 11/17/2024 12:50 PM EDT Encounter for other general examination CBC AND DIFFERENTIAL STAT 11/17/2024 12:50 PM EDT Encounter for other general examination LACTATE STAT 11/17/2024 12:50 PM EDT Encounter for other general examination documented in this encounter Results * (ABNORMAL) CBC auto differential (11/17/2024 12:50 PM EDT) WBC 15.4(H) 4.8 - 10.8 K/[facility] LAB HEMETOLOGY METHOD 11/17/2024 1:42 PM EDT [facility] LAB RBC 4.70 4.50 - 5.50 M/[facility] LAB HEMETOLOGY METHOD 11/17[facility]24 [facility] Hemoglobin 14.5 13.5 - 17.5 g/dL LAB HEMETOLOGY METHOD 11/17/2024 1:42 PM [facility] LAB Hematocrit 44.2 42.0 - 54.0 % LAB HEMETOLOGY METHOD 11/17/2024 1:42 PM [facility] LAB MCV 94.8 79.0 - 98.0 FL LAB HEMETOLOGY METHOD 11/17/2024 1:42 PM [facility] LAB MCH 31.1 27.0 - 32.0 pcg LAB HEMETOLOGY METHOD 11/17/2024 1:42 PM [facility] LAB MCHC 32.8 32.0 - 37.0 g/dL LAB HEMETOLOGY METHOD 11/17/2024 1:42 PM [facility] LAB RDW 14.5 11.0 - 15.0 % LAB HEMETOLOGY METHOD 11/17/2024 1:42 PM [facility] LAB Platelets 183 130 - 400 K/mcL LAB HEMETOLOGY METHOD 11/17/2024 1:42 PM [facility] LAB MPV 11.4(H) 7.0 - 11.0 FL LAB HEMETOLOGY METHOD 11/17/2024 1:42 PM [facility] LAB NRBC 0.0 <1.0 % LAB HEMETOLOGY METHOD 11/17/2024 1:42 PM [facility] LAB NRBC Absolute 0.00 <0.10 K/mcL LAB HEMETOLOGY METHOD 11/17/2024 1:42 PM [facility] LAB Neutrophils Relative 80.3 % LAB HEMETOLOGY METHOD 11/17/2024 1:42 PM [facility] LAB Lymphocytes Relative 8.4 % LAB HEMETOLOGY METHOD 11/17/2024 1:42 PM EDT [facility] LAB Monocytes Relative 9.0 % LAB HEMETOLOGY METHOD 11/17/2024 1:42 PM EDT [facility] LAB Eosinophils Relative 0.8 % LAB HEMETOLOGY METHOD 11/17/2024 1:42 PM EDT [facility] LAB Basophils Relative 0.3 % LAB HEMETOLOGY METHOD 11/17/2024 1:42 PM EDT [facility] LAB Immature Granulocytes Relative 1.2 % LAB HEMETOLOGY METHOD 11/17/2024 1:42 PM EDT [facility] LAB Neutrophils Absolute 12.36(H) 1.50 - 7.00 K/mcL LAB HEMETOLOGY METHOD 11/17/2024 1:42 PM EDT [facility] LAB Lymphocytes Absolute 1.30 1.00 - 5.00 K/mcL LAB HEMETOLOGY METHOD 11/17/2024 1:42 PM EDT [facility] LAB Monocytes Absolute 1.38(H) 0.20 - 1.00 K/mcL LAB HEMETOLOGY METHOD 11/17/2024 1:42 PM EDT [facility] LAB Eosinophils Absolute 0.12 0.00 - 0.50 K/mcL LAB HEMETOLOGY METHOD 11/17/2024 1:42 PM EDT [facility] LAB Basophils Absolute 0.04 0.00 - 0.20 K/mcL LAB HEMETOLOGY METHOD 11/17/2024 1:42 PM EDT [facility] LAB Immature Granulocytes Absolute 0.19(H) 0.00 - 0.03 K/mcL LAB HEMETOLOGY METHOD 11/17/2024 1:42 PM T [facility] LAB Blood Venous blood specimen / Unknown 11/17/2024 12:50 PM EDT 11/17/2024 1:28 PM EDT us Debbie SALGUERO LAB BLOOD ORDERABLES Final Resul t [facility] LAB [address] [place] [address], [place] [phone] * Lactate (11/17/2024 12:50 PM EDT) Lactate 1.4 0.4 - 2.0 mmol/L LAB CHEMISTRY METHOD 11/17/2024 2:34 PM EDT [facility] LAB Blood Venous blood specimen / Unknown 11/17/2024 12:50 PM EDT 11/17/2024 1:28 PM EDT Debbie SALGUERO LAB BLOOD ORDERABLES Final Resul t Performing Organization Address [facility] Co de Phone Number [facility] LAB [address] [place] [address], [place] [phone] documented in this encounter Visit Diagnoses Diagnosis Encounter for other general examination documented in this encounter Care Teams Public Utilities Sales Representative Relationship Specialty Start Date End Date Physician, No Pcp PCP - General 11/10/24 documented as of this encounter
[2024-12-29 13:14] LABS: MANUAL DIFF FLAG NO
[2024-12-29 13:17] LABS: B Type Natriuretic Peptide 69 pg/mL (<100)
[2024-12-29 13:28] LABS: Hematocrit 40.6 % (42.0-52.0); Hemoglobin 13.4 g/dl (14.0-18.0); Imm Gran Abs Auto 0.07 X10*3/uL (0.00-0.03); Imm Gran Pct Auto 0.9 % (0.0-0.4); Lymphocytes Absolute Auto 1.4 X10*3/uL (1.2-4.9); Mean Corpuscular HGB Conc 33.0 g/dl (31.0-36.0); Mean Corpuscular Hemoglobin 30.9 pg (27.0-33.0); Mean Corpuscular Volume 93.5 fL (80.0-98.0); NRBC Abs Auto 0.000 X10*3/uL (0.0-0.012); NRBC Pct Auto 0.0 /100WBC (0.0-0.2); Platelet Count 298 X10*3/uL (160-400); Red Blood Count 4.34 X10*6/uL (4.60-5.80); White Blood Count 7.9 X10*3/uL (4.8-10.8)
[2024-12-29 13:45] LABS: Alanine Aminotransferase 15 U/L (0-40); Albumin Level 4.0 g/dL (3.5-5.0); Alkaline Phosphatase 199 U/L (39-117); Anion Gap 14 (12-20); Aspartate Amino Transferase 25 U/L (5-37); Blood Urea Nitrogen 27 mg/dL (9-16); Calcium 9.3 mg/dL (8.4-10.2); Carbon Dioxide 30 mmol/L (22-29); Chloride 99 mmol/L (96-108); Estimated Glomerular Filt Rate 46; Potassium 4.0 mmol/L (3.3-5.1); Sodium 139 mmol/L (135-145); Total Protein 6.9 g/dL (6.5-8.0)
--- OUTSIDE RECORDS SUMMARY | 2025-01-21 20:00 | XMS_ITS | Clinical Summary ---
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 Name Role Phone NEEMA PA, BENJAMIN Unavailable Unavailable CHLOE RN, KARINA Unavailable Unavailsheyla RIVERS RN, CONCEPCION Unavailable Unavailable PAGLIUCA ([facility]) [facility] - OT, BERNA Unavailable Unavailable OLIMPIA PT, JS Unavailable Unavailable Payers Payer Name Policy Type Policy Number Effective Date Expira tion Date MEDICARE - [facility] [id number] S[place]OM USED PAYER [id number] Problems Condition Name Condition Details Condition Category Status Onset Date Resolution Date Last Treatment Date Treating Clinician Comments CHRONIC OBSTRUCTIVE PULMONARY DISEASE W (ACUTE) EXACERBATION Active 04-26 00:00: 00 CHR OBSTRUCTIVE PULMON DISEASE WITH (ACUTE) LOWER RESP INFCT Active 04-26 00:00: 00 PNEUMONIA, UNSPECIFIED ORGANISM Active 04-26 00:00: 00 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 Active 04-26 00:00: 00 CARDIOMYOPAT HY, UNSPECIFIED Active 04-26 00:00: 00 ACUTE RESPIRATORY FAILURE WITH HYPOXIA Active 04-26 00:00: 00 HYP HRT AND CHR KDNY DIS W HRT FAIL AND STG 1-4/UNSP CHR KDNY Active 04-26 00:00: 00 UNSPECIFIED DIASTOLIC (CONGESTIVE) HEART FAILURE Active 04-26 00:00: 00 TYPE 2 DIABETES MELLITUS W DIABETIC CHRONIC KIDNEY DISEASE Active 04-26 00:00: 00 CHRONIC KIDNEY DISEASE, STAGE 3 UNSPECIFIED Active 04-26 00:00: 00 NON-ST ELEVATION (NSTEMI) MYOCARDIAL INFARCTION Active 04-26 00:00: 00 OTHER CHRONIC PAIN Active 04-26 00:00: 00 OBSTRUCTIVE SLEEP APNEA (ADULT) (PEDIATRIC) Active 04-26 00:00: 00 LEFT BUNDLE-BRANC H BLOCK, UNSPECIFIED Active 04-26 00:00: 00 OCCLUSION AND STENOSIS OF RIGHT CAROTID ARTERY Active 04-26 00:00: 00 DORSALGIA, UNSPECIFIED Active 04-26 00:00: 00 INSOMNIA, UNSPECIFIED Active 04-26 00:00: 00 Obesity, class 1 Active 04-26 00:00: 00 BODY MASS INDEX [BMI]30.0-30 .9, ADULT Active 04-26 00:00: 00 PERSONAL HISTORY OF NICOTINE DEPENDENCE Active 04-26 00:00: 00 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 Active 04-26 00:00: 00 USP (CURRENT) USE OF ORAL HYPOGLYCEMIC DRUGS Active 04-26 00:00: 00 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 WRAPPER OPERATOR (CURRENT) USE OF ANTITHROMBOT ICS/ANTIPLAT ELETS Active 04-26 00:00: 00 USP (CURRENT) USE OF INHALED STEROIDS Active 04-26 00:00: 00 DEPENDENCE ON SUPPLEMENTAL OXYGEN Active 04-26 00:00: 00 Allergies, Adverse Reactions, Alerts Allergy Name Allergy Type Status Severity Reaction(s) Onset Date Inactive Date Treating Clinician Comments CODEINE Propensity to adverse reactions Active 11-24 12:00: 31 MORPHINE Propensity to adverse reactions Active 11-25 12:49: 05 IBUPROFEN Propensity to adverse reactions Active 11-25 12:49: 15 ADHESIVE Propensity to adverse reactions Active 11-25 12:49: 20 Medications Ordered Medication Name Filled Medication Name Start Date Stop Date Current Medication? Ordering Clinician Indication Dosage Frequency Signature (SIG) Comments Components carisoprodo l 350 mg tablet 11-12 00:00: 00 11-28 00:00 :00 No [id number] Per instruc tions THREE TIMES DAILY Per instructio ns THREE TIMES DAILY (route: oral) Med Classific ation: Locomotor System carvedilol 3.125 mg tablet 11-10 00:00: 00 03-15 00:00 :00 No [id number] 1 tablet TWICE DAILY 1 tablet TWICE DAILY (route: oral) Med Classific ation: Cardiovas cular Therapy Agents Jardiance 10 mg tablet 7-18 00:00: 00 03-15 00:00 :00 No [id number] 1 tablet DAILY 1 tablet DAILY (route: oral) Med Classific ation: Endocrine OxyContin 20 mg tablet,david h resistant,e xtended release 11-05 00:00: 00 03-15 00:00 :00 No [id number] Unavailable Per instruc tions EVERY Per instructio ns EVERY (route: oral) Med Classific ation: Analgesic , Anti-infl ammatory or Antipyret ic OxyContin 30 mg tablet,david h resistant,e xtended release 11-05 00:00: 00 03-15 00:00 :00 No [id number] Unavailable Per instruc tions EVERY EVERY Per instructio ns EVERY EVERY (route: oral) Med Classific ation: Analgesic , Anti-infl ammatory or Antipyret ic Ventolin HFA 90 mcg/actuati on aerosol inhaler 7-06 00:00: 00 03-15 00:00 :00 No [id number] Per instruc tions INTO THE LUNGS EVERY 3 HOURS NEEDED Per instructio ns INTO THE LUNGS EVERY 3 HOURS NEEDED (route: inhalation ) Med Classific ation: Respirato ry Therapy Agents lorazepam 1 mg tablet 629 00:00: 00 03-15 00:00 :00 No [id number] 1 tablet THREE TIMES DAILY 1 tablet THREE TIMES DAILY (route: oral) Med Classific ation: Central Nervous System Agents carisoprodo l 350 mg tablet 6-22 00:00: 00 03-15 00:00 :00 No [id number] 1 tablet THREE TIMES DAILY 1 tablet THREE TIMES DAILY (route: oral) Med Classific ation: Locomotor System allopurinol 100 mg tablet 8-05 00:00: 00 03-15 00:00 :00 No [id number] 2 tablet DAILY 2 tablet DAILY (route: oral) Med Classific ation: Gout and Hyperuric emia Therapy aspirin 81 mg tablet,rene yed release 11-28 00:00: 00 03-15 00:00 :00 No [id number] 1 tablet DAILY 1 tablet DAILY (route: oral) Med Classific ation: Hematolog ical Agents atorvastati n 80 mg tablet 11-28 00:00: 00 03-15 00:00 :00 No [id number] 1 tablet BEDTIME 1 tablet BEDTIME (route: oral) Med Classific ation: Cardiovas cular Therapy Agents cefpodoxime 100 mg tablet 11-28 00:00: 00 12-01 23:59 :00 No [id number] 1 tablet 2 TIMES DAILY 1 tablet 2 TIMES DAILY (route: oral) Med Classific ation: Anti-Infe ctive Agents clopidogrel 75 mg tablet 11-28 00:00: 00 03-15 00:00 :00 No [id number] 1 tablet DAILY 1 tablet DAILY (route: oral) Med Classific ation: Hematolog ical Agents glipizide ER 2.5 mg tablet, extended release 24 hr 11-28 00:00: 00 03-15 00:00 :00 No [id number] 1 tablet 2 TIMES DAILY 1 tablet 2 TIMES DAILY (route: oral) Med Classific ation: Endocrine Mucinex 600 mg tablet, extended release 11-28 00:00: 00 12-07 23:59 :00 No [id number] 1 tablet 2 TIMES DAILY 1 tablet 2 TIMES DAILY (route: oral) Med Classific ation: Respirato ry Therapy Agents omeprazole 20 mg capsule,del ayed release 11-28 00:00: 00 03-15 00:00 :00 No [id number] 1 capsule DAILY 1 capsule DAILY (route: oral) Med Classific ation: Gastroint estinal Therapy Agents tamsulosin 0.4 mg capsule 11-28 00:00: 00 03-15 00:00 :00 No [id number] 1 capsule DAILY 1 capsule DAILY (route: oral) Med Classific ation: Genitouri nary Therapy torsemide 20 mg tablet 05 00:00: 00 03-15 00:00 :00 No [id number] 0.5 tablet DAILY 0.5 tablet DAILY (route: oral) Med Classific ation: Cardiovas cular Therapy Agents OXYGEN 11-28 00:00: 00 10-25 23:59 :00 No [id number] 2 Liter O2 - CONTINUOUS 2 Liter O2 - CONTINUOUS (route: Oxygen) Med Classific ation: Medical Oxygen allopurinol 100 mg tablet 2023-04 00:00: 00 10-25 23:59 :00 No [id number] 2 tablet DAILY 2 tablet DAILY (route: oral) Med Classific ation: Gout and Hyperuric emia Therapy aspirin 81 mg tablet,rene yed release 2023-04 00:00: 00 10-25 23:59 :00 No [id number] 1 tablet DAILY 1 tablet DAILY (route: oral) Med Classific ation: Hematolog ical Agents carisoprodo l 350 mg tablet 2023-04 00:00: 00 10-25 23:59 :00 No [id number] 2 tablet 3 TIMES DAILY 2 tablet 3 TIMES DAILY (route: oral) Med Classific ation: Locomotor System carvedilol 6.25 mg tablet 2023-04 00:00: 00 10-25 23:59 :00 No [id number] 1 tablet 2 TIMES DAILY 1 tablet 2 TIMES DAILY (route: oral) Med Classific ation: Cardiovas cular Therapy Agents clopidogrel 75 mg tablet 2023-04 00:00: 00 10-25 23:59 :00 No [id number] 1 tablet DAILY 1 tablet DAILY (route: oral) Med Classific ation: Hematolog ical Agents Farxiga 10 mg tablet 2023-04 00:00: 00 10-25 23:59 :00 No [id number] 1 tablet DAILY 1 tablet DAILY (route: oral) Med Classific ation: Endocrine Fish Oil 1,000 mg (120 mg-180 mg) capsule 2023-04 00:00: 00 10-25 23:59 :00 No [id number] 1 capsule DAILY 1 capsule DAILY (route: oral) Med Classific ation: Cardiovas cular Therapy Agents furosemide 20 mg tablet 2023-04 00:00: 00 10-25 23:59 :00 No [id number] 1 tablet DAILY 1 tablet DAILY (route: oral) Med Classific ation: Cardiovas cular Therapy Agents glipizide 2.5 mg tablet 2023-04 00:00: 00 10-25 23:59 :00 No [id number] 1 tablet 2 TIMES DAILY 1 tablet 2 TIMES DAILY (route: oral) Med Classific ation: Endocrine lorazepam 1 mg tablet 2023-04 00:00: 00 10-25 23:59 :00 No [id number] 1 tablet 3 TIMES DAILY 1 tablet 3 TIMES DAILY (route: oral) Med Classific ation: Central Nervous System Agents losartan 50 mg tablet 2023-04 00:00: 00 10-25 23:59 :00 No [id number] 1 tablet DAILY 1 tablet DAILY (route: oral) Med Classific ation: Cardiovas cular Therapy Agents omeprazole 20 mg capsule,del ayed release 2023-04 00:00: 00 10-25 23:59 :00 No [id number] 1 capsule DAILY 1 capsule DAILY (route: oral) Med Classific ation: Gastroint estinal Therapy Agents ondansetron HCl 4 mg tablet 2023-04 00:00: 00 10-25 23:59 :00 No [id number] 1 tablet EVERY 8 HOURS 1 tablet EVERY 8 HOURS (route: oral) Med Classific ation: Gastroint estinal Therapy Agents oxycodone 20 mg tablet 2023-04 00:00: 00 10-25 23:59 :00 No [id number] 1 tablet DIRECTED 1 tablet DIRECTED (route: oral) Med Classific ation: Analgesic , Anti-infl ammatory or Antipyret ic OxyContin 30 mg tablet,david h resistant,e xtended release 2023-04 00:00: 00 10-25 23:59 :00 No [id number] 1 tablet 2 TIMES DAILY 1 tablet 2 TIMES DAILY (route: oral) Med Classific ation: Analgesic , Anti-infl ammatory or Antipyret ic simvastatin 40 mg tablet 2023-04 00:00: 00 10-25 23:59 :00 No [id number] 1 tablet BEDTIME 1 tablet BEDTIME (route: oral) Med Classific ation: Cardiovas cular Therapy Agents Trelegy Ellipta 100 mcg-62.5 mcg-25 mcg powder for inhalation 2023-04 00:00: 00 10-25 23:59 :00 No [id number] 1 inhalat ion DAILY 1 inhalation DAILY (route: inhalation ) Med Classific ation: Respirato ry Therapy Agents allopurinol 100 mg tablet 2-03 00:00: 00 Yes [id number] 1 tablet DAILY 1 tablet DAILY (route: oral) Med Classific ation: Gout and Hyperuric emia Therapy aspirin 81 mg tablet,rene yed release - 00:00: 00 Yes [id number] 1 tablet DAILY 1 tablet DAILY (route: oral) Med Classific ation: Hematolog ical Agents carisoprodo l 350 mg tablet -30 00:00: 00 Yes [id number] 2 tablet 2 TIMES DAILY 2 tablet 2 TIMES DAILY (route: oral) Med Classific ation: Locomotor System carvedilol 6.25 mg tablet - 00:00: 00 Yes [id number] 1 tablet 2 TIMES DAILY 1 tablet 2 TIMES DAILY (route: oral) Med Classific ation: Cardiovas cular Therapy Agents Farxiga 10 mg tablet 1-06 00:00: 00 Yes [id number] 1 tablet DAILY 1 tablet DAILY (route: oral) Med Classific ation: Endocrine furosemide 20 mg tablet 1-06 00:00: 00 Yes [id number] 1 tablet DAILY 1 tablet DAILY (route: oral) Med Classific ation: Cardiovas cular Therapy Agents glipizide 2.5 mg tablet 1-06 00:00: 00 Yes [id number] 1 tablet 2 TIMES DAILY 1 tablet 2 TIMES DAILY (route: oral) Med Classific ation: Endocrine [place] 3-6-9 1,200 mg capsule 2-03 00:00: 00 Yes [id number] 1 capsule DAILY 1 capsule DAILY (route: oral) Med Classific ation: Cardiovas cular Therapy Agents OxyContin 30 mg tablet,david h resistant,e xtended release 7- 00:00: 00 Yes [id number] 1 tablet 2 TIMES DAILY 1 tablet 2 TIMES DAILY (route: oral) Med Classific ation: Analgesic , Anti-infl ammatory or Antipyret ic oxygen gas for inhalation 1-06 00:00: 00 Yes [id number] 2 Liter BEDTIME 2 Liter BEDTIME (route: inhalation ) Med Classific ation: Medical Supplies and Durable Medical Equipment (DME) Plavix 75 mg tablet - 00:00: 00 Yes [id number] 1 tablet DAILY 1 tablet DAILY (route: oral) Med Classific ation: Hematolog ical Agents Senna Lax 8.6 mg tablet 11-20 00:00: 00 Yes [id number] 2 tablet BEDTIME 2 tablet BEDTIME (route: oral) Med Classific ation: Gastroint estinal Therapy Agents Trelegy Ellipta 100 mcg-62.5 mcg-25 mcg powder for inhalation 2- 00:00: 00 Yes [id number] 1 inhalat ion DAILY 1 inhalation DAILY (route: inhalation ) Med Classific ation: Respirato ry Therapy Agents levofloxaci n 250 mg tablet 12-01 00:00: 00 12-06 23:59 :00 No [id number] 1 tablet DAILY 1 tablet DAILY (route: oral) Med Classific ation: Anti-Infe ctive Agents metronidazo le 500 mg tablet - 00:00: 00 12-06 23:59 :00 No [id number] 1 tablet 3 TIMES DAILY 1 tablet 3 TIMES DAILY (route: oral) Med Classific ation: Anti-Infe ctive Agents Vital Signs Vital Name Observation Time Observation Value Commen ts Temperature 2024-12-28 10:04:00.000 98.2 [degF] Temperature 2024-12-19 11:15:00.000 98 [degF] Temperature 2024-12-12 10:15:00.000 98.1 [degF] Temperature 2024-12-09 21:25:00.000 97.8 [degF] Temperature 2024-12-07 13:06:00.000 98.8 [degF] Temperature 2024-12-05 13:15:00.000 98.3 [degF] Temperature 2024-12-05 07:25:00.000 97.8 [degF] Temperature 2024-12-01 12:06:00.000 98.3 [degF] Temperature 2024-11-30 12:52:00.000 98.7 [degF] Temperature 2024-11-24 12:43:00.000 97.8 [degF] BMI (%) 2024-11-24 12:43:00.000 33 kg/m2 Height 2024-11-24 12:43:00.000 72 [in_us] Pulse 2024-12-28 10:04:00.000 94 /min Pulse 2024-12-19 11:15:00.000 88 /min Pulse 2024-12-12 10:15:00.000 102 /min Pulse 2024-12-09 21:25:00.000 88 /min Pulse 2024-12-07 13:06:00.000 90 /min Pulse 2024-12-05 13:15:00.000 66 /min Pulse 2024-12-05 07:25:00.000 70 /min Pulse 2024-12-01 12:06:00.000 65 /min Pulse 2024-11-30 12:52:00.000 78 /min Pulse 2024-11-24 12:43:00.000 80 /min O2 Saturation (%) 2024-12-28 10:04:00.000 90 % O2 Saturation (%) 2024-12-19 11:15:00.000 96 % O2 Saturation (%) 2024-12-12 10:13:00.000 95 % O2 Saturation (%) 2024-12-07 13:06:00.000 90 % O2 Saturation (%) 2024-12-05 13:15:00.000 96 % O2 Saturation (%) 2024-12-01 12:06:00.000 99 % O2 Saturation (%) 2024-11-30 12:52:00.000 94 % O2 Saturation (%) 2024-11-24 12:43:00.000 94 % Respirations 2024-12-28 10:04:00.000 20 /min Respirations 2024-12-19 11:15:00.000 18 /min Respirations 2024-12-09 21:25:00.000 18 /min Respirations 2024-12-07 13:06:00.000 18 /min Respirations 2024-12-05 13:15:00.000 16 /min Respirations 2024-12-05 07:25:00.000 18 /min Respirations 2024-12-01 12:06:00.000 16 /min Respirations 2024-11-30 12:52:00.000 22 /min Respirations 2024-11-24 12:43:00.000 16 /min Weight (lbs) 2024-12-28 10:10:00.000 229 [lb_av] Weight (lbs) 2024-11-24 12:43:00.000 245 [lb_av] Systolic Blood Pressure 2024-12-28 10:04:00.000 122 mm [Hg] Systolic Blood Pressure 2024-12-19 11:15:00.000 132 mm [Hg] Systolic Blood Pressure 2024-12-12 10:13:00.000 146 mm [Hg] Systolic Blood Pressure 2024-12-09 21:25:00.000 118 mm [Hg] Systolic Blood Pressure 2024-12-07 13:06:00.000 110 mm [Hg] Systolic Blood Pressure 2024-12-05 13:15:00.000 114 mm [Hg] Systolic Blood Pressure 2024-12-05 07:25:00.000 122 mm [Hg] Systolic Blood Pressure 2024-12-01 12:06:00.000 132 mm [Hg] Systolic Blood Pressure 2024-11-30 12:52:00.000 114 mm [Hg] Systolic Blood Pressure 2024-11-24 12:43:00.000 105 mm [Hg] Diastolic Blood Pressure 2024-12-28 10:04:00.000 68 mm [Hg] Diastolic Blood Pressure 2024-12-19 11:15:00.000 74 mm [Hg] Diastolic Blood Pressure 2024-12-12 10:13:00.000 72 mm [Hg] Diastolic Blood Pressure 2024-12-09 21:25:00.000 76 mm [Hg] Diastolic Blood Pressure 2024-12-07 13:06:00.000 62 mm [Hg] Diastolic Blood Pressure 2024-12-05 13:15:00.000 76 mm [Hg] Diastolic Blood Pressure 2024-12-05 07:25:00.000 76 mm [Hg] Diastolic Blood Pressure 2024-12-01 12:06:00.000 74 mm [Hg] Diastolic Blood Pressure 2024-11-30 12:52:00.000 78 mm [Hg] Diastolic Blood Pressure 2024-11-24 12:43:00.000 58 mm [Hg] Plan of Treatment Planned Activity [...] Test SKILLED NU RSE TO REVIEW PATIENT MEDICATIONS (PRESCRIPTION/OTC). INSTRUCT PATIENT/CAREGIVER ON ALL MEDICATIONS INCLUDING PURPOSE, WHEN TO TAKE, IMPORTANCE OF MEDICATION ADHERENCE, MONITORING OF EFFECTIVENESS, ADVERSE DRUG REACTIONS, POSSIBLE SIDE EFFECTS, AND WHEN TO NOTIFY AGENCY OR PHYSICIAN/PROVIDER OF ANY CONCERNS. [code = SKILLED NURSE TO REVIEW PATIENT MEDICATIONS (PRESCRIPTION/OTC). INSTRUCT PATIENT/CAREGIVER ON ALL MEDICATIONS INCLUDING PURPOSE, WHEN TO TAKE, IMPORTANCE OF MEDICATION ADHERENCE, MONITORING OF EFFECTIVENESS, ADVERSE DRUG REACTIONS, POSSIBLE SIDE EFFECTS, AND WHEN TO NOTIFY AGENCY OR PHYSICIAN/PROVIDER OF ANY CONCERNS.] Future Scheduled Test PATIENT REYNOLDS S A [...] MAINTAIN SITUATIONAL AWARENESS AND WILL NOTIFY CLINICAL LADLER AND PHYSICIAN/PROVIDER WITH ANY CHANGE IN CONDITION. [code = SKILLED NURSE TO PERFORM ENVIRONMENTAL SAFETY RISK ASSESSMENT AND FALL RISK ASSESSMENT AND PROVIDE INSTRUCTION TO IMPLEMENT ENVIRONMENTAL SAFETY AND FALL PREVENTION STRATEGIES THROUGHOUT THE CERTIFICATION PERIOD. SKILLED NURSE WILL MAINTAIN SITUATIONAL AWARENESS AND WILL NOTIFY CLINICAL LADLER AND PHYSICIAN/PROVIDER WITH ANY CHANGE IN CONDITION.] Future Scheduled Test SKILLED NU RSE FOR OBSERVATION AND ASSESSMENT OF PATIENT S PAIN LEVEL AND EFFECTIVENESS OF PAIN MANAGEMENT REGIMEN. SKILLED NURSE TO INSTRUCT PATIENT/CAREGIVER REGARDING PHARMACOLOGIC AND NON-PHARMACOLOGIC PAIN CONTROL MEASURES. SKILLED NURSE TO REPORT TO PHYSICIAN IF PAIN LEVEL IS OUTSIDE OF ESTABLISHED PARAMETERS. [code = SKILLED NURSE FOR OBSERVATION AND ASSESSMENT OF PATIENT S PAIN LEVEL AND EFFECTIVENESS OF PAIN MANAGEMENT REGIMEN. SKILLED NURSE TO INSTRUCT PATIENT/CAREGIVER REGARDING PHARMACOLOGIC AND NON-PHARMACOLOGIC PAIN CONTROL MEASURES. SKILLED NURSE TO REPORT TO PHYSICIAN IF PAIN LEVEL IS OUTSIDE OF ESTABLISHED PARAMETERS.] Future Scheduled Test SKILLED NU RSE TO ASSESS PATIENT'S SKIN INTEGRITY AND INSTRUCT PATIENT/CAREGIVER ON MEASURES TO PREVENT PRESSURE ULCERS. [code = SKILLED NURSE TO ASSESS PATIENT'S SKIN INTEGRITY AND INSTRUCT PATIENT/CAREGIVER ON MEASURES TO PREVENT PRESSURE ULCERS.] Future Scheduled Test SKILLED NU RSE TO INSTRUCT PATIENT/CAREGIVER ON COPD TO INCLUDE TEACHING AND SELF-MANAGEMENT RELATED TO COPD DISEASE PROCESS, SIGNS AND SYMPTOMS, AND COMPLICATIONS. [code = SKILLED NURSE TO INSTRUCT PATIENT/CAREGIVER ON COPD TO INCLUDE TEACHING AND SELF-MANAGEMENT RELATED TO COPD DISEASE PROCESS, SIGNS AND SYMPTOMS, AND COMPLICATIONS.] Future Scheduled Test OXYGEN VIA NC 2L AT BEDTIME. SKILLED NURSE FOR O/A AND SKILLED TEACHING OF SAFE OXYGEN USE IN THE HOME. [code = OXYGEN VIA NC 2L AT BEDTIME. SKILLED NURSE FOR O/A AND SKILLED TEACHING OF SAFE OXYGEN USE IN THE HOME.] Future Scheduled Test SKILLED NU RSE FOR [...] TRAINED PATIENT/CAREGIVER TO OBTAIN MEASUREMENT OF BILATERAL ANKLES IN CM DAILY AND REPORT AN INCREASE OF 2 CM TO PHYSICIAN/PROVIDER. [code = SKILLED NURSE [...] TRAINED PATIENT/CAREGIVER TO OBTAIN MEASUREMENT OF BILATERAL ANKLES IN CM DAILY AND REPORT AN INCREASE OF 2 CM TO PHYSICIAN/PROVIDER.] Future Scheduled Test SKILLED NU RSE TO OBTAIN BLOOD SUGAR PRN FOR SIGNS AND SYMPTOMS OF HYPO/HYPERGLYCEMIA. IF OBTAINED BY PATIENT/CAREGIVER PRIOR TO VISIT AND PATIENT IS NOT SYMPTOMATIC, SKILLED NURSE TO RECORD READING FROM PATIENT LOG. [code = SKILLED NURSE TO OBTAIN BLOOD SUGAR PRN FOR SIGNS AND SYMPTOMS OF HYPO/HYPERGLYCEMIA. IF OBTAINED BY PATIENT/CAREGIVER PRIOR TO VISIT AND PATIENT IS NOT SYMPTOMATIC, SKILLED NURSE TO RECORD READING FROM PATIENT LOG.] Future Scheduled Test PRN [facility] L VISITS MAY BE PERFORMED UTILIZING TELECOMMUNICATIONS SYSTEM TO OPTIMIZE SKILLED SERVICES FURNISHED ON THE PLAN OF CARE. SKILLED NURSE TO ESTABLISH SUPPORT MEASURES TO MINIMIZE RISK OF REHOSPITALIZATION, AND INSTRUCT PATIENT/CAREGIVER ON METHODS TO REDUCE AVOIDABLE HOSPITALIZATION. [code = PRN VIRTUAL VISITS MAY BE PERFORMED UTILIZING TELECOMMUNICATIONS SYSTEM TO OPTIMIZE SKILLED SERVICES FURNISHED ON THE PLAN OF CARE. SKILLED NURSE TO ESTABLISH SUPPORT MEASURES TO MINIMIZE RISK OF REHOSPITALIZATION, AND INSTRUCT PATIENT/CAREGIVER ON METHODS TO REDUCE AVOIDABLE HOSPITALIZATION.] Future Scheduled Test PHYSICAL T HERAPIST TO EVALUATE PATIENT FOR PHYSICAL DECONDITIONING [code = PHYSICAL THERAPIST TO EVALUATE PATIENT FOR PHYSICAL DECONDITIONING] Future Scheduled Test OCCUPATION AL THERAPIST TO EVALUATE PATIENT FOR PHYSICAL DECONDITIONING [code = OCCUPATIONAL THERAPIST TO EVALUATE PATIENT FOR PHYSICAL DECONDITIONING] Future Scheduled Test SKILLED NU RSE FOR O/A, TEACHING RELATED TO CONSTIPATION FOR EARLY IDENTIFICATION OF EXACERBATION OF DISEASE PROCESS. [code = SKILLED NURSE FOR O/A, TEACHING RELATED TO CONSTIPATION FOR EARLY IDENTIFICATION OF EXACERBATION OF DISEASE PROCESS.] Future Scheduled Test SKILLED NU RSE MAY COLLECT URINE SAMPLE FOR URINE REAGENT STRIP TESTING AND/OR URINALYSIS WITH C S 1-3 PRN IF INDICATED FOR SIGNS AND SYMPTOMS OF UTI. IF REAGENT STRIP TEST IS POSITIVE FOR UTI, SKILLED NURSE TO TAKE URINE SAMPLE TO LAB FOR URINE C S AND REPORT RESULTS TO PHYSICIAN. [code = SKILLED NURSE MAY COLLECT URINE SAMPLE FOR URINE REAGENT STRIP TESTING AND/OR URINALYSIS WITH C S 1-3 PRN IF INDICATED FOR SIGNS AND SYMPTOMS OF UTI. IF REAGENT STRIP TEST IS POSITIVE FOR UTI, SKILLED NURSE TO TAKE URINE SAMPLE TO LAB FOR URINE C S AND REPORT RESULTS TO PHYSICIAN.] Future Scheduled Test SKILLED NU RSE TO INSTRUCT PATIENT/CAREGIVER ON WARNING SIGNS OF CVA, RISK FACTORS, AND METHODS TO MANAGE HAND WRAPPER OPERATOR EFFECTS OF CVA. [code = SKILLED NURSE TO INSTRUCT PATIENT/CAREGIVER ON WARNING SIGNS OF CVA, RISK FACTORS, AND METHODS TO MANAGE USP EFFECTS OF CVA.] Future Scheduled Test SKILLED NU RSE FOR O/A AND SKILLED TEACHING RELATED TO SIGNS AND SYMPTOMS OF INFECTION AND INFECTION CONTROL MEASURES. [code = SKILLED NURSE FOR O/A AND SKILLED TEACHING RELATED TO SIGNS AND SYMPTOMS OF INFECTION AND INFECTION CONTROL MEASURES.] Future Scheduled Test PHYSICAL T HERAPIST TO EVALUATE PATIENT SECONDARY TO FUNCTIONAL DEFICITS/SAFETY CONCERNS. PHYSICAL THERAPIST TO ASSESS BEST PRACTICE INTERVENTIONS TO ASSIST PATIENTS TO IMPROVE OR STABILIZE MEDICAL STATUS AND PREVENT RE-HOSPITALIZATION. MEASURES INCLUDING REVIEW AND IDENTIFICATION OF CONCERNS FOR THE FOLLOWING AREAS: PAIN, AND DISEASE MANAGEMENT. PHYSICAL THERAPY TO ESTABLISH /UPGRADE/DOWNGRADE THERAPEUTIC EXERCISE PROGRAM AND INSTRUCT PATIENT/CAREGIVER ON EXERCISE PRECAUTIONS WITH WRITTEN HOME PROGRAM. MAY INCLUDE PROM, AAROM, AROM, RROM APPROPRIATE TO IMPROVE FUNCTIONAL STRENGTH AND RANGE OF MOTION. PHYSICAL THERAPY TO INSTRUCT PATIENT/CAREGIVER ON BED MOBILITY TECHNIQUES TO IMPROVE PATIENT MOBILITY AND POSITIONING TECHNIQUES IN ORDER TO INCREASE PATIENT S COMFORT AND DECREASE RISK OF SKIN BREAKDOWN. PHYSICAL THERAPY TO INSTRUCT PATIENT/CAREGIVER ON SAFE [...] REASON(S) SKILLS OF A THERAPIST ARE INDICATED: 8/GAIT: PATIENT IS A 79-YEAR-OLD MALE WITH HISTORY OF CVA WITH RIGHT-SIDED HEMIPARESIS, COPD ON 2 L O2 AT NIGHTTIME, KAREN, TYPE 2 DIABETES, CHRONIC LOW BACK PAIN, CAROTID STENOSIS, CHF, CARDIOMYOPATHY, CKD STAGE 3, PRESENTS REFERRAL FOR HOME PT SERVICES FOLLOWING IRF ADMISSION DISEASE FOR RECONDITIONING FOLLOWING INPATIENT ADMISSION FOR COPD EXACERBATION AND [place], PATIENT DISCHARGED TO [facility] ON 11/09 AND DISCHARGED HOME ON 11/20. PLOF: PATIENT LIVES WITH SPOUSE IN SINGLE FAMILY HOME WITH 3 STAIRS TO ENTER, OWNS ROLLING WALKER AND STRAIGHT CANE, PATIENT TYPICALLY USES EITHER ASSISTIVE DEVICE INDOORS AND ROLLING WALKER OUTDOORS, DENIES PRIOR FALLS HISTORY IN LAST 6 MONTHS. PATIENT OWNS SHOWER CHAIR. IS PRIMARY GOAL WITH HOME PT SERVICES IS TO IMPROVE HIS LOWER EXTREMITY STRENGTH AND BALANCE. PATIENT REPORTS HE HAS HAD INCREASED ABDOMINAL PAIN SINCE DISCHARGE HOME AND REPORTS HE MAY PRESENT TO EMERGENCY ROOM WITH SPOUSE ASSISTING LATER TODAY. VSS THROUGHOUT VISIT, PATIENT HAS DIFFUSE ABDOMINAL TENDERNESS, REPORTS HE HAD DIARRHEA EARLIER TODAY. RECOMMENDED FOR PATIENT TO PRESENT TO URGENT CARE AFTER EVALUATION, SPOKE TO KIM AT OFFICE REGARDING SITUATION. PATIENT REQUIRED MIN ASSIST X1 FOR TRANSFERS FROM VARIOUS HEIGHTS AND SURFACES AROUND HIS HOME AND FOR BED MOBILITY TASKS INCLUDING SUPINE TO SIT TRANSITIONS, CGA X1 WITH ROLLING WALKER USE FOR LEVEL SURFACE AMBULATION WELL SECONDARY TO LOWER EXTREMITY WEAKNESS EVIDENCED BY 30 SECOND [id number] SCORE LESS THAN 8 REPETITIONS, IMPAIRED DYNAMIC STANDING BALANCE EVIDENCED BY TINETTI SCORE LESS THAN 19/30, AND IMPAIRED ENDURANCE/ACTIVITY TOLERANCE EVIDENCED BY 2 MINUTE STEP TEST LESS THAN 100 STEPS. PATIENT WILL REQUIRE HOME PT SERVICES IN ORDER TO MAXIMIZE ITS CURRENT LEVEL OF FUNCTION AND INDEPENDENCE TO ALLOW PATIENT TO SAFELY ACCESS AND NAVIGATE HIS HOME ENVIRONMENT WITH DECREASE RISK FOR FALLS. VERBAL ORDER RECEIVED FOR PT PLAN OF CARE FROM KIM AT OFFICE THERAPIST TO REVIEW PATIENT MEDICATIONS (PRESCRIPTION/OTC). INSTRUCT PATIENT/CAREGIVER ON ALL MEDICATIONS INCLUDING PURPOSE, WHEN TO TAKE, IMPORTANCE OF MEDICATION ADHERENCE, MONITORING OF EFFECTIVENESS, ADVERSE DRUG EVENTS, POSSIBLE SIDE EFFECTS, AND WHEN TO NOTIFY AGENCY OR PHYSICIAN/PROVIDER OF ANY CONCERNS. THERAPIST TO PROVIDE FUNCTIONAL STRATEGIES/TECHNIQUES FOR MANAGING MEDICATIONS. [code = PHYSICAL THERAPIST TO EVALUATE PATIENT SECONDARY TO FUNCTIONAL DEFICITS/SAFETY CONCERNS. PHYSICAL THERAPIST TO ASSESS BEST PRACTICE INTERVENTIONS TO ASSIST PATIENTS TO IMPROVE OR STABILIZE MEDICAL STATUS AND PREVENT RE-HOSPITALIZATION. MEASURES INCLUDING REVIEW AND IDENTIFICATION OF CONCERNS FOR THE FOLLOWING AREAS: PAIN, AND DISEASE MANAGEMENT. PHYSICAL THERAPY TO ESTABLISH /UPGRADE/DOWNGRADE THERAPEUTIC EXERCISE PROGRAM AND INSTRUCT PATIENT/CAREGIVER ON EXERCISE PRECAUTIONS WITH WRITTEN HOME PROGRAM. MAY INCLUDE PROM, AAROM, AROM, RROM APPROPRIATE TO IMPROVE FUNCTIONAL STRENGTH AND RANGE OF MOTION. PHYSICAL THERAPY TO INSTRUCT PATIENT/CAREGIVER ON BED MOBILITY TECHNIQUES TO IMPROVE PATIENT MOBILITY AND POSITIONING TECHNIQUES IN ORDER TO INCREASE PATIENT S COMFORT AND DECREASE RISK OF SKIN BREAKDOWN. PHYSICAL THERAPY TO INSTRUCT PATIENT/CAREGIVER ON SAFE [...] REASON(S) SKILLS OF A THERAPIST ARE INDICATED: 8/GAIT: PATIENT IS A 79-YEAR-OLD MALE WITH HISTORY OF CVA WITH RIGHT-SIDED HEMIPARESIS, COPD ON 2 L O2 AT NIGHTTIME, KAREN, TYPE 2 DIABETES, CHRONIC LOW BACK PAIN, CAROTID STENOSIS, CHF, CARDIOMYOPATHY, CKD STAGE 3, PRESENTS REFERRAL FOR HOME PT SERVICES FOLLOWING IRF ADMISSION DISEASE FOR RECONDITIONING FOLLOWING INPATIENT ADMISSION FOR COPD EXACERBATION AND MARICHUY, PATIENT DISCHARGED TO [facility] ON 11/09 AND DISCHARGED HOME ON 11/20. PLOF: PATIENT LIVES WITH SPOUSE IN SINGLE FAMILY HOME WITH 3 STAIRS TO ENTER, OWNS ROLLING WALKER AND STRAIGHT CANE, PATIENT TYPICALLY USES EITHER ASSISTIVE DEVICE INDOORS AND ROLLING WALKER OUTDOORS, DENIES PRIOR FALLS HISTORY IN LAST 6 MONTHS. PATIENT OWNS SHOWER CHAIR. IS PRIMARY GOAL WITH HOME PT SERVICES IS TO IMPROVE HIS LOWER EXTREMITY STRENGTH AND BALANCE. PATIENT REPORTS HE HAS HAD INCREASED ABDOMINAL PAIN SINCE DISCHARGE HOME AND REPORTS HE MAY PRESENT TO EMERGENCY ROOM WITH SPOUSE ASSISTING LATER TODAY. VSS THROUGHOUT VISIT, PATIENT HAS DIFFUSE ABDOMINAL TENDERNESS, REPORTS HE HAD DIARRHEA EARLIER TODAY. RECOMMENDED FOR PATIENT TO PRESENT TO URGENT CARE AFTER EVALUATION, SPOKE TO KIM AT MD OFFICE REGARDING SITUATION. PATIENT REQUIRED MIN ASSIST X1 FOR TRANSFERS FROM VARIOUS HEIGHTS AND SURFACES AROUND HIS HOME AND FOR BED MOBILITY TASKS INCLUDING SUPINE TO SIT TRANSITIONS, CGA X1 WITH ROLLING WALKER USE FOR LEVEL SURFACE AMBULATION WELL SECONDARY TO LOWER EXTREMITY WEAKNESS EVIDENCED BY 30 SECOND [id number] SCORE LESS THAN 8 REPETITIONS, IMPAIRED DYNAMIC STANDING BALANCE EVIDENCED BY TINETTI SCORE LESS THAN 19/30, AND IMPAIRED ENDURANCE/ACTIVITY TOLERANCE EVIDENCED BY 2 MINUTE STEP TEST LESS THAN 100 STEPS. PATIENT WILL REQUIRE HOME PT SERVICES IN ORDER TO MAXIMIZE ITS CURRENT LEVEL OF FUNCTION AND INDEPENDENCE TO ALLOW PATIENT TO SAFELY ACCESS AND NAVIGATE HIS HOME ENVIRONMENT WITH DECREASE RISK FOR FALLS. VERBAL ORDER RECEIVED FOR PT PLAN OF CARE FROM KIM AT MD OFFICE THERAPIST TO REVIEW PATIENT MEDICATIONS (PRESCRIPTION/OTC). INSTRUCT PATIENT/CAREGIVER ON ALL MEDICATIONS INCLUDING PURPOSE, WHEN TO TAKE, IMPORTANCE OF MEDICATION ADHERENCE, MONITORING OF EFFECTIVENESS, ADVERSE DRUG EVENTS, POSSIBLE SIDE EFFECTS, AND WHEN TO NOTIFY AGENCY OR PHYSICIAN/PROVIDER OF ANY CONCERNS. THERAPIST TO PROVIDE FUNCTIONAL STRATEGIES/TECHNIQUES FOR MANAGING MEDICATIONS.] Future Scheduled Test OCCUPATION AL THERAPIST TO EVALUATE PATIENT SECONDARY TO FUNCTIONAL DEFICITS/SAFETY CONCERNS IDENTIFIED DURING EVALUATION OCCUPATIONAL THERAPY TO ESTABLISH /UPGRADE/DOWNGRADE THERAPEUTIC EXERCISE PROGRAM AND INSTRUCT PATIENT/CAREGIVER ON EXERCISE PRECAUTIONS WITH WRITTEN HOME PROGRAM. MAY INCLUDE PROM, AAROM, AROM, RROM APPROPRIATE TO IMPROVE FUNCTIONAL STRENGTH AND/OR RANGE OF MOTION. OCCUPATIONAL THERAPY TO PROVIDE PATIENT/CAREGIVER FINE MOTOR COORDINATION TRAINING TECHNIQUES TO ENHANCE PARTICIPATION IN ADL S. OCCUPATIONAL THERAPY TO ASSESS AND RECOMMEND HOME SAFETY ADAPTATIONS AND EDUCATE PATIENT /CAREGIVER ON FALL PREVENTION STRATEGIES TO ENHANCE PARTICIPATION IN ADL S. OCCUPATIONAL THERAPY TO PROVIDE PATIENT/CAREGIVER WITH INSTRUCTIONS AND RECOMMENDATIONS TO IMPROVE ADL S WHILE USING APPROPRIATE ADAPTIVE DEVICES RECOMMENDED. SUMMARY OF THERAPY EVAL/ASSESSMENT FINDINGS AND REASON(S) SKILLS OF A THERAPIST ARE INDICATED: 79 YEAR OLD PATIENT DISCHARGED FROM REHAB EARLY IN OCTOBER DUE TO CVA. PATIENT HOSPITALIZED AT [facility] ON 11/06 DUE TO COPD EXACERBATION AND MARICHUY. PATIENT SENT TO [facility] FOR STR ON 11/09. PATIENT RETURNED TO THE HOSPITAL ON 11/17 DUE TO COLITIS SECONDARY TO CONSTIPATION. ANTIBIOTICS WERE D/C, CONSTIPATION RESOLVED. PATIENT RETURNED TO [facility] FROM 11/19 TO 11/20. PATIENT NOW RETURNS HOME WITH SKILLED OT EVAL FOR ADL AND UE ASSESSMENT. PMHX: COPD, CVA 11/17 WITH RIGHT SIDED HEMIPARESIS, DM2, KAREN, O2 USE, CHRONIC BACK PAIN, LBBB, TIA, CAROTID STENOSIS, CARDIOMYOPATHY, CHF, CHRONIC LICA OCCLUSION, CKD 3, HX OF BACK SURGERY. PLOF: PATIENT LIVES IN SINGLE STORY HOME WITH , GRANDSON AND DGTR. OTHER FAMILY MEMBERS IN THE AREA TO ASSIST NEEDED. PATIENT REPORTS THAT HIS GRANDSON IS HIS GENERAL OFFICE ASSISTANT THROUGH [employer] AND PROVIDES APROX 28 HOURS PER WEEK OF ASSIST WITH PERSONAL CARE. PATIENTT AMBULATES WITH ASSISTIVE DEVICE NEEDED. PATIENT PERFORMS SHOWER WITH ASSIST, DRESSING WITH ASSIST NEEDED, TOILETING MOD I . PATIENT NOT RESPONSIBLE FOR ANY HOME MGT OR MEAL PREP. PATIENT REPORTS THAT HIS IS ABLE TO PREP AND RETRIEVE BEVERAGES OR A SNACK. UE ASSESSMENT. LEFT UE AROM WFL, RIGHT UE WFL BUT PRESENTS WITH PAIN WITH MOVEMENT. PATIENT REPORTS THAT THIS PAIN IS NEW IN THE LAST MONTH AND HE DID NOT HAVE ISSUES PRIOR TO. LEFT MMT 4/5 RIGHT 3/5 AT SHOULDER, RIGHT ELBOW-DISTAL 4-5. LEFT HAND GRASP NO DEFICIT. RIGHT HAND GRASP 3+/5 , REPORTS DECREASED SENSATION IN RIGHT HAND AND FINE MOTOR DEFICIT IMPACTING PATIENT DEXTERITY AND COOR OF ITEM MANIPULATION. PATIENT FUNCTIONAL ENDURANCE AND STAMINA IS IMPACTED BY COPD AND PATENT REQUIRES MANY THERAPEUTIC RESTS TO MANAGE TASKS THROUGHOUT DAY. DC PLANNING INITIATED. COOR OF CARE WITH PATIENT, FAMILY AND ELARA TEAM. PATIENT TO BE SEEN BY OT AGAIN THIS WEEK AND THEN 1WK4 (THEN REASSESS) TO ADDRESS OT POC. PATIENT REMAINS HOMEBOUND DUE TO TAXING EFFORT TO LEAVE HOME AND ASSIST OF ANOTHER PERSON DUE TO WEAKNESS. THERAPIST TO PROVIDE SKILLED INSTRUCTION AND INTERVENTIONS RELATED TO MANAGEMENT OF NEUROLOGICAL DEFICITS INCLUDING ( TONE INHIBITION/FACILITATION, HEMISPHERIC AWARENESS, MIDLINE CORRECTION) TO RESTORE NORMAL MOVEMENT PATTERNS AND IMPROVE FUNCTIONAL COORDINATION, BALANCE, POSTURE, AND/OR PROPRIOCEPTION. [code = OCCUPATIONAL THERAPIST TO EVALUATE PATIENT SECONDARY TO FUNCTIONAL DEFICITS/SAFETY CONCERNS IDENTIFIED DURING EVALUATION OCCUPATIONAL THERAPY TO ESTABLISH /UPGRADE/DOWNGRADE THERAPEUTIC EXERCISE PROGRAM AND INSTRUCT PATIENT/CAREGIVER ON EXERCISE PRECAUTIONS WITH WRITTEN HOME PROGRAM. MAY INCLUDE PROM, AAROM, AROM, RROM APPROPRIATE TO IMPROVE FUNCTIONAL STRENGTH AND/OR RANGE OF MOTION. OCCUPATIONAL THERAPY TO PROVIDE PATIENT/CAREGIVER FINE MOTOR COORDINATION TRAINING TECHNIQUES TO ENHANCE PARTICIPATION IN ADL S. OCCUPATIONAL THERAPY TO ASSESS AND RECOMMEND HOME SAFETY ADAPTATIONS AND EDUCATE PATIENT /CAREGIVER ON FALL PREVENTION STRATEGIES TO ENHANCE PARTICIPATION IN ADL S. OCCUPATIONAL THERAPY TO PROVIDE PATIENT/CAREGIVER WITH INSTRUCTIONS AND RECOMMENDATIONS TO IMPROVE ADL S WHILE USING APPROPRIATE ADAPTIVE DEVICES RECOMMENDED. SUMMARY OF THERAPY EVAL/ASSESSMENT FINDINGS AND REASON(S) SKILLS OF A THERAPIST ARE INDICATED: 79 YEAR OLD PATIENT DISCHARGED FROM REHAB EARLY IN OCTOBER DUE TO CVA. PATIENT HOSPITALIZED AT [facility] ON 11/06 DUE TO COPD EXACERBATION AND MARICHUY. PATIENT SENT TO [facility] FOR STR ON 11/09. PATIENT RETURNED TO THE HOSPITAL ON 11/17 DUE TO COLITIS SECONDARY TO CONSTIPATION. ANTIBIOTICS WERE D/C, CONSTIPATION RESOLVED. PATIENT RETURNED TO [facility] FROM 11/19 TO 11/20. PATIENT NOW RETURNS HOME WITH SKILLED OT EVAL FOR ADL AND UE ASSESSMENT. PMHX: COPD, CVA 11/17 WITH RIGHT SIDED HEMIPARESIS, DM2, KAREN, O2 USE, CHRONIC BACK PAIN, LBBB, TIA, CAROTID STENOSIS, CARDIOMYOPATHY, CHF, CHRONIC LICA OCCLUSION, CKD 3, HX OF BACK SURGERY. PLOF: PATIENT LIVES IN SINGLE STORY HOME WITH , GRANDSON AND DGTR. OTHER FAMILY MEMBERS IN THE AREA TO ASSIST NEEDED. PATIENT REPORTS THAT HIS GRANDSON IS HIS GENERAL OFFICE ASSISTANT THROUGH [employer] AND PROVIDES APROX 28 HOURS PER WEEK OF ASSIST WITH PERSONAL CARE. PATIENTT AMBULATES WITH ASSISTIVE DEVICE NEEDED. PATIENT PERFORMS SHOWER WITH ASSIST, DRESSING WITH ASSIST NEEDED, TOILETING MOD I . PATIENT NOT RESPONSIBLE FOR ANY HOME MGT OR MEAL PREP. PATIENT REPORTS THAT HIS IS ABLE TO PREP AND RETRIEVE BEVERAGES OR A SNACK. UE ASSESSMENT. LEFT UE AROM WFL, RIGHT UE WFL BUT PRESENTS WITH PAIN WITH MOVEMENT. PATIENT REPORTS THAT THIS PAIN IS NEW IN THE LAST MONTH AND HE DID NOT HAVE ISSUES PRIOR TO. LEFT MMT 4/5 RIGHT 3/5 AT SHOULDER, RIGHT ELBOW-DISTAL 4-5. LEFT HAND GRASP NO DEFICIT. RIGHT HAND GRASP 3+/5 , REPORTS DECREASED SENSATION IN RIGHT HAND AND FINE MOTOR DEFICIT IMPACTING PATIENT DEXTERITY AND COOR OF ITEM MANIPULATION. PATIENT FUNCTIONAL ENDURANCE AND STAMINA IS IMPACTED BY COPD AND PATENT REQUIRES MANY THERAPEUTIC RESTS TO MANAGE TASKS THROUGHOUT DAY. DC PLANNING INITIATED. COOR OF CARE WITH PATIENT, FAMILY AND ELARA TEAM. PATIENT TO BE SEEN BY OT AGAIN THIS WEEK AND THEN 1WK4 (THEN REASSESS) TO ADDRESS OT POC. PATIENT REMAINS HOMEBOUND DUE TO TAXING EFFORT TO LEAVE HOME AND ASSIST OF ANOTHER PERSON DUE TO WEAKNESS. THERAPIST TO PROVIDE SKILLED INSTRUCTION AND INTERVENTIONS RELATED TO MANAGEMENT OF NEUROLOGICAL DEFICITS INCLUDING ( TONE INHIBITION/FACILITATION, HEMISPHERIC AWARENESS, MIDLINE CORRECTION) TO RESTORE NORMAL MOVEMENT PATTERNS AND IMPROVE FUNCTIONAL COORDINATION, BALANCE, POSTURE, AND/OR PROPRIOCEPTION.] Goal Patient Goal - GET STRONGER Goal Provider Goal - A PLAN OF CARE WILL BE ESTABLISHED THAT MEETS PATIENT'S LONG-TERM NEEDS AND INCLUDES PATIENT GOAL FOR HOME [...] PAIN INTERFERING WITH ACTIVITY EVIDENCED BY PAIN AT A LEVEL THAT IS ACCEPTABLE TO THE PATIENT AND PAIN LEVEL WITHIN ESTABLISHED PARAMETERS BY END OF CERTIFICATION PERIOD. Goal Provider Goal - PATIENT/CAREGIVER WILL VERBALIZE UNDERSTANDING OF PRESSURE ULCER PREVENTION BY END OF THE EPISODE. Goal Provider Goal - PATIENT/CAREGIVER WILL VERBALIZE/DEMONSTRATE KNOWLEDGE AND MANAGEMENT OF COPD BY END OF EPISODE. Goal Provider Goal - PATIENT/CAREGIVER WILL VERBALIZE/DEMONSTRATE UNDERSTANDING OF SAFE OXYGEN USE IN THE HOME THROUGHOUT THE EPISODE. Goal Provider Goal - PATIENT/CAREGIVER WILL VERBALIZE/DEMONSTRATE KNOWLEDGE AND MANAGEMENT OF HEART FAILURE DISEASE PROCESS BY END OF EPISODE. Goal Provider Goal - BLOOD SUGAR READING WILL BE OBTAINED ORDERED THROUGHOUT CERTIFICATION PERIOD. Goal Provider Goal - PATIENT/CAREGIVER WILL UTILIZE VIRTUAL VISITS TO ACHIEVE GOALS OUTLINED ON THE PLAN OF CARE. PATIENT WILL HAVE SUPPORT MEASURES ESTABLISHED TO PREVENT HOSPITALIZATION AND PATIENT/CAREGIVER WILL VERBALIZE/DEMONSTRATE METHODS TO REDUCE AVOIDABLE HOSPITALIZATION THROUGHOUT THE CERTIFICATION PERIOD. Goal Provider Goal - A PHYSICAL THERAPY EVALUATION TO BE COMPLETED WITH RECOMMENDATIONS AND/OR WRITTEN PLAN OF TREATMENT ESTABLISHED FOR PHYSICIAN S SIGNATURE. Goal Provider Goal - OCCUPATIONAL THERAPY EVALUATION TO BE COMPLETED WITH RECOMMENDATIONS AND WRITTEN PLAN OF TREATMENT ESTABLISHED FOR THE PHYSICIAN S SIGNATURE. Goal Provider Goal - EXACERBATIONS OF CONSTIPATION WILL BE PROMPTLY IDENTIFIED AND INTERVENTIONS IMPLEMENTED TO MINIMIZE RISKS TO PATIENT BY END OF EPISODE. Goal Provider Goal - URINE SPECIMEN [...] Goal - PATIENT/CAREGIVER WILL VERBALIZE/DEMONSTRATE UNDERSTANDING OF S/S OF INFECTION AND INFECTION CONTROL MEASURES. SIGNS AND SYMPTOMS OF INFECTION WILL BE IDENTIFIED AND PHYSICIAN NOTIFIED FOR PROMPT INTERVENTION THROUGHOUT THE CERTIFICATION PERIOD. Goal Provider Goal - PHYSICAL THERAPY EVALUATION TO BE COMPLETED WITH RECOMMENDATIONS AND/OR WRITTEN TREATMENT PLAN OF CARE ESTABLISHED FOR THE PHYSICIAN S SIGNATURE PATIENT/CAREGIVER VERBALIZES UNDERSTANDING OF THE INITIAL BEST PRACTICE RECOMMENDATIONS. PHYSICIAN TO BE NOTIFIED APPROPRIATE FOR ANY CHANGES OR COMPLICATIONS THROUGHOUT THE CERTIFICATION PERIOD. PATIENT/CAREGIVER WILL PERFORM THERAPEUTIC EXERCISE/S AND DEMONSTRATE PARTICIPATION IN A HOME PROGRAM. PATIENT/CAREGIVER WILL DEMONSTRATE IMPROVED BED MOBILITY TECHNIQUES. PATIENT/CAREGIVER WILL DEMONSTRATE SAFE TRANSFERS USING APPROPRIATE [...] REDUCE THE RISK OF FALLS AND INJURY. PATIENT/CAREGIVER WILL VERBALIZE/DEMONSTRATE UNDERSTANDING OF MEDICATIONS AND STRATEGIES/TECHNIQUES FOR MEDICATION MANAGEMENT BY THE END OF THE CERTIFICATION PERIOD. Goal Provider Goal - OCCUPATIONAL THERAPIST TO EVALUATE PATIENT SECONDARY TO FUNCTIONAL DEFICITS/SAFETY CONCERNS IDENTIFIED DURING EVALUATION. PATIENT/CAREGIVER WILL PERFORM THERAPEUTIC EXERCISE/S AND DEMONSTRATE PARTICIPATION IN A HOME PROGRAM. PATIENT/CAREGIVER WILL DEMONSTRATE IMPROVED FINE MOTOR COORDINATION. CAREGIVER/PATIENT WILL DEMONSTRATE/VERBALIZE UNDERSTANDING OF RECOMMENDATIONS TO INCREASE SAFETY IN THE HOME AND FALL PREVENTION IN ORDER TO MANAGE ADL PATIENT/CAREGIVER WILL DEMONSTRATE IMPROVED ABILITY TO PERFORM ACTIVITIES OF DAILY LIVING. PATIENT/CAREGIVER WILL DEMONSTRATE IMPROVED ABILITY TO PERFORM FUNCTIONAL ACTIVITIES/MOBILITY BY THE END OF THE CERTIFICATION PERIOD. Progress Notes Progress Notes <paragraph>[Visit Date: 2024 by CHANDRIKA LONG RN]:</paragraph><paragraph>SNV 12/28</paragraph><paragraph></paragraph><paragraph>ABNORMAL VITALS: ALL VS WITHIN SET PARAMETERS </paragraph><paragraph></paragraph><paragraph>FALLS: DENIES ANY RECENT FALLS</paragraph><paragraph></paragraph><paragraph>ABNORMAL PHYSICAL ASSESSMENT FINDINGS: 3+ EDEMA TO BLLE </paragraph><paragraph></paragraph><paragraph>MEDICATION CHANGES: LASIX INCREASED TO 20 MG BID FOR 3 DAYS. ENDING TONIGHT 12/28.</paragraph><paragraph></paragraph><paragraph>OBSERVATION AND ASSESSMENT PROVIDED: PATIENT IS A&OX4, C/O 7/10 BACK PAIN WHICH HAS BEEN A CHRONIC FINDING FOR THIS PATIENT. STATES OXYCONTIN DOES NOT PROVIDE A LOT OF RELIEF TO THE PATIENT, DAUGHTER STATES SHE DISCUSSED THIS WITH PCP WITH NO MEDICATION CHANGES. ENCOURAGED PATIENT TO TAKE TYLENOL AND USE HEATING PADS. LUNG SOUNDS ARE CLEAR ON RA, 02 SAT 90%, GOAL IS > 89%. PATIENT USES OXYGEN PRN, NOT ON OXYGEN UPON ARRIVAL, DAUGHTER STATES HE HAS NOT NEEDED IT FOR THE PAST MONTH OR SO. DENIES CP/PALPITATIONS. ENDORCES SOB WITH MODERATE EXERTION INCLUDING STAIRS AND AMBULATION > 20 FEET. 3+ EDEMA TO BLLE. SPOKE WITH DAUGHTER WHO STATES IT HAS LITTLE TO NO IMPROVEMENT. THEY SPOKE TO BLISTER PACK OPERATOR EARLIER THIS WEEK WITH THIS CONCERN, CARDIOLIGIST RECOMMENDED INCREASING LASIX TO 20 MG BID AND MONITOR FOR 3 DAYS, INSTRUCTED TO CALL BACK TOMORROW IF NO IMPROVEMENT. PATIENT FINISHED BID LASIX TONIGHT. CALLED CARDIOLOIGST AND SPOKE TO CHAIM MIN AND STATED MINE AND PATIENTS CAREGIVERS AND PATIENTS CONCERN REGARDING LITTLE TO NO IMPROVEMENT TO EDEMA, PAKO STATED SHE WILL DISCUSS WITH MD AND CALL PATIENT TOMORROW TO DISCUSS THE NEXT STEPS. ADVISED PATIENT TO SEEK MEDICAL ATTENTION IF PATIENTS SOB WORSENS, EDEMA WORSENS, OR CP OCCURS. PATIENT AND CG STATES THEY PREFER TO WAIT TO TALK TO BLISTER PACK OPERATOR TOMORROW. DISCUSSED COMPRESSION STOCKING USE AND CG STATES THEY WERE TOLD RN WOULD BRING THEM STOCKINGS DURING THIS VISIT, RN UNAWARE. EMAILED NABOR CORONEL TO SEE IF SHE WOULD BE ABLE TO PROVIDE STOCKINGS AT VISIT TOMORROW, IF UNABLE, WILL PROVIDE COMPRESSION STOCKINGS AT NEXT VISIT. INSTRUCTED PATIENT TO REQUEST COMPRESSION STOCKINGS FROM CARDIOLOIGST OFFICE IF THEY HAVE A FOLLOW UP PRIOR TO NEXT SNV. DENIES URINARY SYMPTOMS. DENIES N/V/D. LBM 12/26. EVERY OTHER DAY IS PATIENTS BASELINE. SKIN IS INTACT. </paragraph><paragraph></paragraph><paragraph>EDUCATION: PATIENT AND CG'S EDUCATED ON IMPORTANCE OF LEG ELEVATION AND COMPRESSION STOCKINGS TO DECREASE EDEMA. EDUCATED ON WORSENING S/S OF CHF EXACERBATION AND WHEN TO SEEK MEDICAL ATTENTION INCLUDING WORSENING SOB, CP, COUGH PRODUCING YELLOW SPUTUM, FATIGUE, INCREASED HR, AND WORSENING EDEMA. EDUCATED ON IMPORTANCE OF LOW SALT DIET. EDUCATED ON PAIN RELIEF TECHNIQUES INCLUDING TYLENOL USE AND HEATING PADS. EDUCATED ON S/S O COPD EXACERBATION INCLUDING INCREASED SOB AND YELLOW PHLEGM AND TO REPORT WORSENING SYMPTOMS TO [facility] AND/OR MD OR SEEK MEDICAL ATTENTION IF SYMPTOMS ARE NOT RESOLVING WITH REST, MEDICATIONS AND OXYGEN USE. PATIENT AND +DAUGHTER STATED UNDESTANDING. WILL NEED TO REASSESS EDUCATION RETENTION AT NEXT SNV. </paragraph><paragraph></paragraph><paragraph>INTERVENTIONS NEEDED AT NEXT VISIT:RESPIRATORY ASSESSMENT, CARDIAC ASSESSMENT, MED EDUCATION, SAFETY EDUCATION </paragraph><paragraph></paragraph><paragraph>COMMUNICATION WITH MD: SPOKE WITH PAKO RN AT BLISTER PACK OPERATOR OFFICE IN REGARDS TO LITTLE TO NO IMPROVEMENT TO BLLE EDEMA PER PATIENT DAUGHTER AND REPORT, PAKO STATED SHE WILL SPEAK TO BLISTER PACK OPERATOR AND CALL PATIENT TOMORROW TO DISCUSS NEXT STEPS. LEFT A MESSAGE WITH STAFF COUNSEL AT PCP OFFICE WELL INFORMING THEM OF INCREASED EDEMA AND THAT I NOTIFIED CARDIOLOGY WELL. </paragraph><paragraph></paragraph><paragraph>NEXT MD APPOINTMENT: NO UPCOMING APPTS. AWAITING TO DISCUSS WITH BLISTER PACK OPERATOR TOMORROW </paragraph><paragraph></paragraph><paragraph>PT AND CAREGIVER INSTRUCTED TO CALL [facility] WITH ANY QUESTIONS OR CONCERNS AND/OR CHANGES IN CONDITION, STATE UNDERSTANDING</paragraph> Encounters Start Date/Time End Date/Time Encounter Type Admission Type Attending Clinicians Care Facility Care Department Encounter ID Discharge Date Discharge Status Discharge Condition Discharge Reason Percent Goals Met 2024-11-24 00:00:00 2025-01-22 00:00:00 Outpatient [facility]CEPCION [facility] [id number]
== END 2024-12-29 11:58 | disposition home or self-care (01) ==
LOC: HO.HMGCLDS 11:57
PROVIDERS: PCP Physician Assistant Medical; Visit Provider Physician Assistant Medical
DX: Z00.00 Encounter for general adult medical examination without abnormal findings (principal); R60.0 Localized edema
CPT/HCPCS: 36415; 80053; 83880; 85025

== ENCOUNTER 2025-01-02 09:16 | Outpatient (REF) | payer MEDICARE, MEDICAID, SELFPAY ==
--- NOTE | ~2025-01-02 | XR_ITS ---
EXAMINATION: XR CHEST 2 VIEWS HISTORY: R60.0 - Localized edema COMPARISON: Comparison is made with the prior examination dated 12/01/2024. FINDINGS: PA and lateral views of the chest are submitted. There is a 4.5 cm spiculated masslike opacity in the right upper lobe. There are linear opacities at the right lung base. The left lung is clear. There is no pleural effusion, pneumothorax, or pulmonary vascular congestion. The heart is normal in size. There is degenerative disc disease of the spine. XR/XR chest 2V IMPRESSION: 4.5 cm spiculated masslike opacity in the right upper lobe. Further evaluation with chest CT is recommended. Findings were sent to Monique Hernandez by secure text message on 01/02/2025 at 9:50 AM. Electronically signed by: Dread Byrne MD 01/02/2025 09:51 AM EDT
[2025-01-02 10:37] LABS: Anion Gap 15 (12-20); Blood Urea Nitrogen 42 mg/dL (9-16); Calcium 9.2 mg/dL (8.4-10.2); Carbon Dioxide 31 mmol/L (22-29); Chloride 98 mmol/L (96-108); Estimated Glomerular Filt Rate 40; Potassium 4.0 mmol/L (3.3-5.1); Sodium 140 mmol/L (135-145)
--- OUTSIDE RECORDS SUMMARY | 2025-01-02 10:41 | XMS_ITS | Encounter Summary ---
Author Organization [facility] Address [address] [place] [address] Care Team Providers Care Patient Financial Advocate Name Role Phone Physician, No Pcp Primary Care Provider Unavaila ble Encounter Details Date Type Department Care Team (Late st Contact Info) Description 11/17/2024 Lab Requisition [facility] - Main Lab [address] [facility] [place] [address] Johnathon Foy PA [address] [address] Encounter for other general examination [...] LAB CHEMISTRY METHOD 11/17/2024 12:31 PM EDT [facility] LAB Potassium 3.6 3.5 - 5.5 mmol/L LAB CHEMISTRY METHOD 11/17/2024 12:31 PM EDT [facility] LAB Chloride 103 96 - 110 mmol/L LAB CHEMISTRY METHOD 11/17/2024 12:31 PM EDT [facility] LAB CO2 28 21 - 32 mmol/L LAB CHEMISTRY METHOD 11/17/2024 12:31 PM EDT [facility] LAB Anion Gap 9 3 - 11 LAB CHEMISTRY METHOD 11/17/2024 12:31 PM EDT [facility] LAB Glucose 134(H) 70 - 100 mg/dL LAB CHEMISTRY METHOD 11/17/2024 12:31 PM [facility] LAB BUN 32(H) 5 - 25 mg/dL LAB CHEMISTRY METHOD 11/17/2024 12:31 PM [facility] LAB Creatinine 1.25 0.70 - 1.30 mg/dL LAB CHEMISTRY METHOD 11/17/2024 12:31 PM [facility] LAB eGFR 59(L) >=60 mL/min/1. 73m2 LAB CHEMISTRY METHOD 11/17/2024 12:31 PM [facility] LAB Comment:Calculation based on the Chronic Kidney Disease Epidemiology Collaboration (CKD-EPI) equation refit without adjustment for race. BUN/Creatinine Ratio 25.6 LAB CHEMISTRY METHOD 11/17/2024 12:31 PM [facility] LAB Calcium 8.8 8.5 - 10.5 mg/dL LAB CHEMISTRY METHOD 11/17/2024 12:31 PM [facility] LAB Blood Venous blood specimen / Unknown Venipuncture / Unknown 11/17/2024 7:01 AM EDT 11/17/2024 10:50 AM EDT us Johnathon SALGUERO LAB BLOOD ORDERABLES Final R esult [facility] LAB [address] [place] [address], documented in this encounter Visit Diagnoses Diagnosis Encounter for other general examination documented in this encounter Care Teams Patient Financial Advocate Relationship Specialty Start Date End Date Physician, No Pcp PCP - General 11/10/24 documented as of this encounter
--- OUTSIDE RECORDS SUMMARY | 2025-01-02 10:41 | XMS_ITS | Encounter Summary ---
Author Organization [facility] Address [address] [place] [address] Care Team Providers Care Assembler Installer Structures Name Role Phone Physician, No Pcp Primary Care Provider Unavaila ble Encounter Details Date Type Department Care Team (Late st Contact Info) Description 11/20/[address] [facility] - Main Lab [address] [facility] [place] [address] Debbie Mccann PA [address] [place] [address] Encounter for other general examination Social History [...] AM EDT) WBC 7.1 4.8 - 10.8 K/[facility] LAB HEMETOLOGY METHOD 11/20/2024 1:04 PM [facility] LAB RBC 3.70(L) 4.50 - 5.50 M/mcL LAB HEMETOLOGY METHOD 11/20/2024 1:04 PM [facility] LAB Hemoglobin 11.5(L) 13.5 - 17.5 g/dL LAB HEMETOLOGY METHOD 11/20/2024 1:04 PM [facility] LAB Hematocrit 36.7(L) 42.0 - 54.0 % LAB HEMETOLOGY METHOD 11/20/2024 1:04 PM [facility] LAB MCV 98.9(H) 79.0 - 98.0 FL LAB HEMETOLOGY METHOD 11/20/2024 1:04 [facility] LAB MCH 31.0 27.0 - 32.0 pcg LAB HEMETOLOGY METHOD 11/20/2024 1:04 [facility] LAB MCHC 31.3(L) 32.0 - 37.0 g/dL LAB HEMETOLOGY METHOD 11/20/2024 1:04 [facility] LAB RDW 14.8 11.0 - 15.0 % LAB HEMETOLOGY METHOD 11/20/2024 1:04 [facility] LAB Platelets 137 130 - 400 K/mcL LAB HEMETOLOGY METHOD 11/20/2024 1:04 [facility] LAB MPV 11.9(H) 7.0 - 11.0 FL LAB HEMETOLOGY METHOD 11/20/2024 1:04 [facility] LAB NRBC 0.0 <1.0 % LAB HEMETOLOGY METHOD 11/20/2024 1:04 [facility] LAB NRBC Absolute 0.00 <0.10 K/mcL LAB HEMETOLOGY METHOD 11/20/2024 1:04 [facility] LAB Neutrophils Relative 59.0 % LAB HEMETOLOGY METHOD 11/20[facility]24 [facility] Lymphocytes Relative 20.1 % LAB HEMETOLOGY METHOD 11/20/2024 1:04 PM [facility] LAB Monocytes Relative 12.1 % LAB HEMETOLOGY METHOD 11/20/2024 1:04 PM [facility] LAB Eosinophils Relative 5.8 % LAB HEMETOLOGY METHOD 11/20/2024 1:04 PM [facility] LAB Basophils Relative 0.6 % LAB HEMETOLOGY METHOD 11/20/2024 1:04 PM [facility] LAB Immature Granulocytes Relative 2.4 % LAB HEMETOLOGY METHOD 11/20/2024 1:04 PM [facility] LAB Neutrophils Absolute 4.18 1.50 - 7.00 K/mcL LAB HEMETOLOGY METHOD 11/20/2024 1:04 PM [facility] LAB Lymphocytes Absolute 1.42 1.00 - 5.00 K/mcL LAB HEMETOLOGY METHOD 11/20/2024 1:04 PM [facility] LAB Monocytes Absolute 0.86 0.20 - 1.00 K/mcL LAB HEMETOLOGY METHOD 11/20/2024 1:04 PM [facility] LAB Eosinophils Absolute 0.41 0.00 - 0.50 K/mcL LAB HEMETOLOGY METHOD 11/20/2024 1:04 PM [facility] LAB Basophils Absolute 0.04 0.00 - 0.20 K/mcL LAB HEMETOLOGY METHOD 11/20/2024 1:04 PM [facility] LAB Immature Granulocytes Absolute 0.17(H) 0.00 - 0.03 K/mcL LAB HEMETOLOGY METHOD 11/20/2024 1:04 PM [facility] LAB Blood Venous blood specimen / Unknown Venipuncture / Unknown 11/20/2024 5:49 AM EDT 11/20/2024 10:04 AM EDT us Debbie SALGUERO LAB BLOOD ORDERABLES Final Resul t Performing Organization Address City/[facility]/ZIP Co de Phone Number [facility] LAB [address] [place] [address], [place] [phone] * Magnesium (11/20/2024 5:49 AM EDT) Pathologist [facility] Magnesium 2.5 1.9 - 2.6 mg/dL LAB CHEMISTRY METHOD 11/20/2024 11:58 AM EDT [facility] LAB Blood Venous blood specimen / Unknown Venipuncture / Unknown 11/20/2024 5:49 AM EDT 11/20/2024 10:04 AM EDT us Debbie SALGUERO LAB BLOOD ORDERABLES Final Resul t Performing Organization Address [facility]/ZIP Co de Phone Number [facility] [address] [place] [address], [place] [phone] * (ABNORMAL) Comprehensive metabolic panel (11/20/2024 5:49 AM EDT) [facility] Sodium 140 133 - 145 mmol/L LAB CHEMISTRY METHOD 11/20/2024 12:07 PM [facility] LAB Potassium 3.3(L) 3.5 - 5.5 mmol/L LAB CHEMISTRY METHOD 11/20/2024 12:07 PM EDT [facility] LAB Chloride 104 96 - 110 mmol/L LAB CHEMISTRY METHOD 11/20/2024 12:07 PM [facility] LAB CO2 28 21 - 32 mmol/L LAB CHEMISTRY METHOD 11/20/2024 12:07 PM T [facility] LAB Anion Gap 8 3 - 11 LAB CHEMISTRY METHOD 11/20/2024 12:07 PM [facility] LAB Glucose 88 70 - 100 mg/dL LAB CHEMISTRY METHOD 11/20/2024 12:07 PM [facility] LAB BUN 27(H) 5 - 25 mg/dL LAB CHEMISTRY METHOD 11/20/2024 12:07 PM [facility] LAB Creatinine 1.34(H) 0.70 - 1.30 mg/dL LAB CHEMISTRY METHOD 11/20/2024 12:07 PM [facility] LAB eGFR 55(L) >=60 mL/min/1. 73m2 LAB CHEMISTRY METHOD 11/20/2024 12:07 PM [facility] LAB Comment:Calculation based on the Chronic Kidney Disease Epidemiology Collaboration (CKD-EPI) equation refit without adjustment for race. BUN/Creatinine Ratio 20.1 LAB CHEMISTRY METHOD 11/20/2024 12:07 PM [facility] LAB Calcium 8.4(L) 8.5 - 10.5 mg/dL LAB CHEMISTRY METHOD 11/20/2024 12:07 [facility] LAB AST (SGOT) 20 10 - 42 unit/L LAB CHEMISTRY METHOD 11/20/2024 12:07 [facility] LAB ALT (SGPT) 21 10 - 60 unit/L LAB CHEMISTRY METHOD 11/20/2024 12:07 PM [facility] LAB Alkaline Phosphatase 120 42 - 121 unit/L LAB CHEMISTRY METHOD 11/20/2024 12:07 [facility] Total Protein 5.5(L) 6.0 - 8.0 g/dL LAB CHEMISTRY METHOD 11/20/2024 12:07 PM [facility] LAB Albumin 2.9(L) 3.2 - 5.0 g/dL LAB CHEMISTRY METHOD 11/20/2024 12:07 PM [facility] Total Bilirubin 0.6 0.0 - 1.4 mg/dL LAB CHEMISTRY METHOD 11/20/2024 12:07 PM [facility] LAB Blood Venous blood specimen / Unknown Venipuncture / Unknown 11/20/2024 5:49 AM EDT 11/20/2024 10:04 AM EDT us Debbie SALGUERO LAB BLOOD ORDERABLES Final Resul t [facility] ([facility]) [facility] [address] [place] [address], [place] [phone] documented in this encounter Visit Diagnoses Diagnosis Encounter for other general examination documented in this encounter Care Teams Assembler Installer Structures Relationship Specialty Start Date End Date Physician, No Pcp PCP - General 11/10/24 documented as of this encounter
--- OUTSIDE RECORDS SUMMARY | 2025-01-02 10:41 | XMS_ITS | Encounter Summary ---
Author Organization [employer] Address [address] 7 [place] [address] Care Team Providers Care Risk Adjustment Specialist Name Role Phone Unavailable Primary Care Provider Unavailabl e Reason for Visit * Reason Onset Date Comments Hospital Follow-up 11/14/2024 Encounter Details Date Type Department Care Team ([facility] st Contact Info) Description 11/14/2024 Telephone [facility] [address] [place], [place] [id number] Jhonathan Valles MD [address] [place] [address] Hospital Follow-up Social History Tobacco Use Types [...] 1:21 PM EDT Tc from Eva with [facility] requesting a HDF appt. [facility] Date of admission: [facility](11/06-11/09) [facility] from (11/09- current. Will be getting discharged on 11/19) Diagnosed: Pneumonia Copd *Send message to [facility] Clinical Care Coordinators documented in this encounter Plan of Treatment Not on file documented as of this encounter Visit Diagnoses Not on filedocumented in this encounter
--- OUTSIDE RECORDS SUMMARY | 2025-01-02 10:41 | XMS_ITS | Encounter Summary ---
Author Organization [facility] Address [address] [place] [address] Care Team Providers Care Senior Technical Writer Name Role Phone Physician, No Pcp Primary Care Provider Unavaila ble Encounter Details Date Type Department Care Team (Late st Contact Info) Description 11/10/2024 Lab Requisition [facility] - Main Lab [address] [facility] [place] [address] Radha Lucas PA [address] [place] [address] Encounter for other general examination [...] LAB HEMETOLOGY METHOD 11/10/2024 11:30 AM EDT [facility] ([facility]) [facility] LAB RBC 4.40(L) 4.50 - 5.50 M/mcL LAB HEMETOLOGY METHOD 11/10/2024 11:[address] [facility] LAB Hemoglobin 13.9 13.5 - 17.5 g/dL LAB HEMETOLOGY METHOD 11/10/2024 11:[address] [facility] LAB Hematocrit 43.4 42.0 - 54.0 % LAB HEMETOLOGY METHOD 11/10/2024 11:[address] [facility] LAB MCV 97.7 79.0 - 98.0 FL LAB HEMETOLOGY METHOD 11/10/2024 11:[address] [facility] LAB MCH 31.3 27.0 - 32.0 pcg LAB HEMETOLOGY METHOD 11/10/2024 11:[address] [facility] LAB MCHC 32.0 32.0 - 37.0 g/dL LAB HEMETOLOGY METHOD 11/10/2024 11:[address] [facility] LAB RDW 14.4 11.0 - 15.0 % LAB HEMETOLOGY METHOD 11/10/2024 11:[address] [facility] Platelets 225 130 - 400 K/mcL LAB HEMETOLOGY METHOD 11/10/2024 11:[address] [facility] LAB MPV 11.4(H) 7.0 - 11.0 FL LAB HEMETOLOGY METHOD 11/10/2024 11:[address] [facility] NRBC 0.0 <1.0 % LAB HEMETOLOGY METHOD 11/10/2024 11:[address] [facility] LAB NRBC Absolute 0.00 <0.10 K/mcL LAB HEMETOLOGY METHOD 11/10/2024 11:[address] [facility] Neutrophils Relative 66.6 % LAB HEMETOLOGY METHOD 11/10/2024 11:[address] [facility] Lymphocytes Relative 18.3 % LAB HEMETOLOGY METHOD 11/10/2024 11:[address] [facility] Monocytes Relative 11.7 % LAB HEMETOLOGY METHOD 11/10/2024 11:[address] [facility] Eosinophils Relative 1.9 % LAB HEMETOLOGY METHOD 11/10/2024 11:[address] [facility] Basophils Relative 0.7 % LAB HEMETOLOGY METHOD 11/10/2024 11:[address] [facility] Immature Granulocytes Relative 0.8 % LAB HEMETOLOGY METHOD 11/10/2024 11:[address] [facility] Neutrophils Absolute 7.09(H) 1.50 - 7.00 K/mcL LAB HEMETOLOGY METHOD 11/10/2024 11:[address] [facility] Lymphocytes Absolute 1.95 1.00 - 5.00 K/mcL LAB HEMETOLOGY METHOD 11/10/2024 11:[address] [facility] Monocytes Absolute 1.24(H) 0.20 - 1.00 K/mcL LAB HEMETOLOGY METHOD 11/10/2024 11:[address] [facility] Eosinophils Absolute 0.20 0.00 - 0.50 K/mcL LAB HEMETOLOGY METHOD 11/10/2024 11:[address] [facility] Basophils Absolute 0.07 0.00 - 0.20 K/mcL LAB HEMETOLOGY METHOD 11/10/2024 11:[address] [facility] Immature Granulocytes Absolute 0.09(H) 0.00 - 0.03 K/mcL LAB HEMETOLOGY METHOD 11/10/2024 11:[address] [facility] Blood Venous blood specimen / Unknown Venipuncture / Unknown 11/10/2024 6:31 AM EDT 11/10/2024 11:10 AM EDT Radha SALGUERO LAB BLOOD ORDERABLES Final Re sult [facility] [address] [place] [address], [place] [phone] * Magnesium (11/10/2024 6:31 AM EDT) Pathologist [facility] Magnesium 2.5 1.9 - 2.6 mg/dL LAB CHEMISTRY METHOD 11/10/2024 12:13 PM EDT [facility] Blood Venous blood specimen / Unknown Venipuncture / Unknown 11/10/2024 6:31 AM EDT 11/10/2024 11:10 AM EDT Radha SALGUERO LAB BLOOD ORDERABLES Final Re sult Performing Organization Address City/[facility]/ZIP Co de Phone Number [facility] [address] [place] [address], [place] [phone] * (ABNORMAL) Comprehensive metabolic panel (11/10/2024 6:31 AM EDT) [facility] Sodium 141 133 - 145 mmol/L LAB CHEMISTRY METHOD 11/10/2024 12:[address] [facility] Potassium 3.8 3.5 - 5.5 mmol/L LAB CHEMISTRY METHOD 11/10/2024 12:[address] [facility] Chloride 103 96 - 110 mmol/L LAB CHEMISTRY METHOD 11/10/2024 12:[address] [facility] CO2 31 21 - 32 mmol/L LAB CHEMISTRY METHOD 11/10/2024 12:[address] [facility] Anion Gap 7 3 - 11 LAB CHEMISTRY METHOD 11/10/2024 12:[address] [facility] Glucose 92 70 - 100 mg/dL LAB CHEMISTRY METHOD 11/10/2024 12:[address] [facility] BUN 32(H) 5 - 25 mg/dL LAB CHEMISTRY METHOD 11/10/2024 12:[address] [facility] Creatinine 1.20 0.70 - 1.30 mg/dL LAB CHEMISTRY METHOD 11/10/2024 12:[address] [facility] LAB eGFR 62 >=60 mL/min/1. 73m2 LAB CHEMISTRY METHOD 11/10/2024 12:[address] [facility] Comment:Calculation based on the Chronic Kidney Disease Epidemiology Collaboration (CKD-EPI) equation refit without adjustment for race. BUN/Creatinine Ratio 26.7 LAB CHEMISTRY METHOD 11/10/2024 12:[address] [facility] Calcium 9.1 8.5 - 10.5 mg/dL LAB CHEMISTRY METHOD 11/10/2024 12:[address] [facility] AST (SGOT) 12 10 - 42 unit/L LAB CHEMISTRY METHOD 11/10/2024 12:[address] [facility] ALT (SGPT) 18 10 - 60 unit/L LAB CHEMISTRY METHOD 11/10/2024 12:[address] [facility] Alkaline Phosphatase 168(H) 42 - 121 unit/L LAB CHEMISTRY METHOD 11/10/2024 12:[address] [facility] Total Protein 6.4 6.0 - 8.0 g/dL LAB CHEMISTRY METHOD 11/10/2024 12:[address] [facility] Albumin 3.3 3.2 - 5.0 g/dL LAB CHEMISTRY METHOD 11/10/2024 12:[address] [facility] Total Bilirubin 0.5 0.0 - 1.4 mg/dL LAB CHEMISTRY METHOD 11/10/2024 12:[address] [facility] Blood Venous blood specimen / Unknown Venipuncture / Unknown 11/10/2024 6:31 AM EDT 11/10/2024 11:10 AM EDT us Radha SALGUERO LAB BLOOD ORDERABLES Final Re sult [facility] ([facility]) [facility] [address] [place] [address], documented in this encounter Visit Diagnoses Diagnosis Encounter for other general examination documented in this encounter Care Teams Senior Technical Writer Relationship Specialty Start Date End Date Physician, No Pcp PCP - General 11/10/24 documented as of this encounter
--- OUTSIDE RECORDS SUMMARY | 2025-01-02 10:41 | XMS_ITS | Encounter Summary ---
Author Organization [facility] Address [address] [place] [address] Care Team Providers Care Linux Engineer Name Role Phone Physician, No Pcp Primary Care Provider Unavaila ble Encounter Details Date Type Department Care Team (Late st Contact Info) Description 11/17/2024 Lab Requisition [facility] - Main Lab [address] [place] [address] Debbie Mccann PA [address] [place] [address] Encounter for other general examination Social History [...] PM EDT) WBC 15.4(H) 4.8 - 10.8 K/[facility] LAB HEMETOLOGY METHOD 11/17/2024 1:[address] [facility] RBC 4.70 4.50 - 5.50 M/[facility] LAB [facility]EM[facility]OLOGY [facility] Hemoglobin 14.5 13.5 - 17.5 g/dL LAB HEMETOLOGY METHOD 11/17/2024 1:42 PM [facility] LAB Hematocrit 44.2 42.0 - 54.0 % LAB HEMETOLOGY METHOD 11/17/2024 1:42 PM [facility] LAB MCV 94.8 79.0 - 98.0 FL LAB HEMETOLOGY METHOD 11/17/2024 1:42 PM [facility] LAB MCH 31.1 27.0 - 32.0 pcg LAB HEMETOLOGY METHOD 11/17/2024 1:42 PM [facility] LAB MCHC 32.8 32.0 - 37.0 g/dL LAB HEMETOLOGY METHOD 11/17/2024 1:42 PM [facility] LAB RDW 14.5 11.0 - 15.0 % LAB HEMETOLOGY METHOD 11/17/2024 1:42 PM [facility] LAB Platelets 183 130 - 400 K/mcL LAB HEMETOLOGY METHOD 11/17/2024 1:42 PM [facility] LAB MPV 11.4(H) 7.0 - 11.0 FL LAB HEMETOLOGY METHOD 11/17/2024 1:42 PM [facility] LAB NRBC 0.0 <1.0 % LAB HEMETOLOGY METHOD 11/17/2024 1:42 PM [facility] LAB NRBC Absolute 0.00 <0.10 K/mcL LAB HEMETOLOGY METHOD 11/17/2024 1:42 PM [facility] LAB Neutrophils Relative 80.3 % LAB HEMETOLOGY METHOD 11/17/2024 1:42 PM [facility] Lymphocytes Relative 8.4 % LAB HEMETOLOGY METHOD 11/17/2024 1:42 PM EDT [facility] Monocytes Relative 9.0 % LAB HEMETOLOGY METHOD 11/17/2024 1:42 PM EDT [facility] Eosinophils Relative 0.8 % LAB HEMETOLOGY METHOD 11/17/2024 1:42 PM EDT [facility] Basophils Relative 0.3 % LAB HEMETOLOGY METHOD 11/17/2024 1:42 PM EDT [facility] Immature Granulocytes Relative 1.2 % LAB HEMETOLOGY METHOD 11/17/2024 1:42 PM EDT [facility] LAB Neutrophils Absolute 12.36(H) 1.50 - 7.00 K/mcL LAB HEMETOLOGY METHOD 11/17/2024 1:42 PM EDT [facility] Lymphocytes Absolute 1.30 1.00 - 5.00 K/mcL LAB HEMETOLOGY METHOD 11/17/2024 1:42 PM EDT [facility] Monocytes Absolute 1.38(H) 0.20 - 1.00 K/mcL LAB HEMETOLOGY METHOD 11/17/2024 1:42 PM EDT [facility] Eosinophils Absolute 0.12 0.00 - 0.50 K/mcL LAB HEMETOLOGY METHOD 11/17/2024 1:42 PM EDT [facility] Basophils Absolute 0.04 0.00 - 0.20 K/mcL LAB HEMETOLOGY METHOD 11/17/2024 1:42 PM EDT [facility] Immature Granulocytes Absolute 0.19(H) 0.00 - 0.03 K/mcL LAB HEMETOLOGY METHOD 11/17/2024 1:42 PM T [facility] Blood Venous blood specimen / Unknown 11/17/2024 12:50 PM EDT 11/17/2024 1:28 PM EDT us Debbie SALGUERO LAB BLOOD ORDERABLES Final Resul t [facility] [address] [place] [address], [place] [phone] * Lactate (11/17/2024 12:50 PM EDT) Lactate 1.4 0.4 - 2.0 mmol/L LAB CHEMISTRY METHOD 11/17/2024 2:34 PM EDT [facility] Blood Venous blood specimen / Unknown 11/17/2024 12:50 PM EDT 11/17/2024 1:28 PM EDT Debbie SALGUERO LAB BLOOD ORDERABLES Final Resul t Performing Organization Address [facility] Co de Phone Number [facility] [address] [place] [address], [place] [phone] documented in this encounter Visit Diagnoses Diagnosis Encounter for other general examination documented in this encounter Care Teams Linux Engineer Relationship Specialty Start Date End Date Physician, No Pcp PCP - General 11/10/24 documented as of this encounter
--- OUTSIDE RECORDS SUMMARY | 2025-01-02 10:41 | XMS_ITS | Clinical Summary ---
Author Organization [employer] Address [address] [facility] [address] [place] [address] Care Team Providers Care Senior Digital Designer Name Role Phone Unavailable Primary Care Provider [...] Type Department Care Team Description 11/23/[address] [address] Catrachito Price MD Appointment Request 11/21/2024 Telephone [facility] [address] [place] [address] Viki Rojas MD No Show 11/20/[address] [address] Savanah Avina PharmD Hospital Follow-up 11/20/2024 Telephone [facility] [address] [place] [address] Sridevi Bourne MA Televisit MARKETING COMPLIANCE MANAGER 11/20/2024 Travel 11/14/2024 Patient Outreach [address] [address] Viki Rojas MD Transition Of Care (Tcm) (HDF- is already scheduled) 11/14/2024 Patient Outreach [address] [address] Catrachito Price MD Transition Of Care (Tcm) (HDF- Unscheduled - (already has a HDF appt) ) 11/14/2024 Telephone [facility] [address] [place] [address] Jhonathan Valles MD Hospital Follow-up 11/01/2024 Telephone [facility] [address] [place] [address] Jhonathan Valles MD Hospital Follow-up 11/01/2024 Patient Outreach [facility] [address] [place] [address] Jhonathan Valles MD Transition Of Care (Tcm) (HDF/MARKETING COMPLIANCE MANAGER Combined.) from Last 3 Months Immunizations Immunization [...] age to complete this topic Insurance MEDICARE [facility]
--- OUTSIDE RECORDS SUMMARY | 2025-01-02 10:41 | XMS_ITS | Clinical Summary ---
Author Organization 299 [facility] Address [address] [place] [address] Phone Care Team Providers Care Finishing Range Feeder Name Role Phone Physician, No Pcp Primary Care Provider Unavaila ble Encounters Date Type Department Care Team Description 11/20/2024 Lab Requisition [facility] [address] [place] [address] Debbie Mccann PA Encounter for other general examination 11/17/2024 Lab Requisition [facility] [address] [place] [address] Debbie Mccann PA Encounter for other general examination 11/17/2024 Lab Requisition [facility] [address] [place] [address] Johnathon Foy PA Encounter for other general examination 11/15/2024 Lab Requisition [facility] [address] [place] [address] Caty Hawk PA Encounter for other general examination 11/11/2024 Lab Requisition [facility] [address] [place] [address] Debbie Mccann PA Encounter for other general examination 11/10/2024 Lab Requisition [facility] [address] [place] [address] Radha Lucas PA Encounter for other general [...] of3 resultswithin the time period is included. [facility] Signature WBC 7.1 4.8 - 10.8 K/mcL LAB HEMETOLOGY METHOD 11/20/2024 1:04 PM EDT [facility] RBC 3.70(L) 4.50 - 5.50 M/[facility] LAB HEMETOLOGY METHOD 11/20/2024 1:04 PM [facility] Hemoglobin 11.5(L) 13.5 - 17.5 g/dL LAB HEMETOLOGY METHOD 11/20/2024 1:04 PM [facility] Hematocrit 36.7(L) 42.0 - 54.0 % LAB HEMETOLOGY METHOD 11/20/2024 1:04 PM [facility] LAB MCV 98.9(H) 79.0 - 98.0 FL LAB HEMETOLOGY METHOD 11/20/2024 1:04 PM [facility] MCH 31.0 27.0 - 32.0 pcg LAB HEMETOLOGY METHOD 11/20/2024 1:04 PM [facility] MCHC 31.3(L) 32.0 - 37.0 g/dL LAB HEMETOLOGY METHOD 11/20/2024 1:04 PM [facility] RDW 14.8 11.0 - 15.0 % LAB HEMETOLOGY METHOD 11/20/2024 1:04 [facility] Platelets 137 130 - 400 K/mcL LAB HEMETOLOGY METHOD 11/20/2024 1:04 PM [facility] MPV 11.9(H) 7.0 - 11.0 FL LAB HEMETOLOGY METHOD 11/20/2024 1:04 PM [facility] NRBC 0.0 <1.0 % LAB HEMETOLOGY METHOD 11/20/2024 1:04 PM [facility] NRBC Absolute 0.00 <0.10 K/mcL LAB HEMETOLOGY METHOD 11/20/2024 1:04 PM [facility] Neutrophils Relative 59.0 % LAB HEMETOLOGY METHOD 11/20/2024 1:04 PM [facility] Lymphocytes Relative 20.1 % LAB HEMETOLOGY METHOD 11/20/2024 1:04 PM EDT [facility] Monocytes Relative 12.1 % LAB HEMETOLOGY METHOD 11/20/2024 1:04 PM [facility] Eosinophils Relative 5.8 % LAB HEMETOLOGY METHOD 11/20/2024 1:04 PM [facility] Basophils Relative 0.6 % LAB HEMETOLOGY METHOD 11/20/2024 1:04 PM [facility] Immature Granulocytes Relative 2.4 % LAB HEMETOLOGY METHOD 11/20/2024 1:04 PM [facility] Neutrophils Absolute 4.18 1.50 - 7.00 K/mcL LAB HEMETOLOGY METHOD 11/20/2024 1:04 PM [facility] Lymphocytes Absolute 1.42 1.00 - 5.00 K/mcL LAB HEMETOLOGY METHOD 11/20/2024 1:04 PM [facility] Monocytes Absolute 0.86 0.20 - 1.00 K/mcL LAB HEMETOLOGY METHOD 11/20/2024 1:04 PM [facility] Eosinophils Absolute 0.41 0.00 - 0.50 K/mcL LAB HEMETOLOGY METHOD 11/20/2024 1:04 PM [facility] Basophils Absolute 0.04 0.00 - 0.20 K/mcL LAB HEMETOLOGY METHOD 11/20/2024 1:04 PM [facility] Immature Granulocytes Absolute 0.17(H) 0.00 - 0.03 K/mcL LAB HEMETOLOGY METHOD 11/20/2024 1:04 PM [facility] Blood Venous blood specimen / Unknown Venipuncture / Unknown 11/20/2024 5:49 AM EDT 11/20/2024 10:04 AM EDT us Debbie SALGUERO LAB BLOOD ORDERABLES Final Resul t Performing Organization Address [facility]/ZIP Co de Phone Number [facility] [address] [place] [address], [place] [phone] * Magnesium (11/20/2024 5:49 AM EDT) Only the most recent of2 resultswithin the time period is included. Magnesium 2.5 1.9 - 2.6 mg/dL LAB CHEMISTRY METHOD 11/20/2024 11:58 AM EDT [facility] Blood Venous blood specimen / Unknown Venipuncture / Unknown 11/20/2024 5:49 AM EDT 11/20/2024 10:04 AM EDT Debbie SALGUERO LAB BLOOD ORDERABLES Final Resul t Performing Organization Address [facility] Co de Phone Number [facility] [address] [place] [address], [place] [phone] * (ABNORMAL) Comprehensive metabolic panel (11/20/2024 5:49 AM EDT) Only the most recent of3 resultswithin the time period is included. Sodium 140 133 - 145 mmol/L LAB CHEMISTRY METHOD 11/20/2024 12:07 PM [facility] Potassium 3.3(L) 3.5 - 5.5 mmol/L LAB CHEMISTRY METHOD 11/20/2024 12:07 PM [facility] Chloride 104 96 - 110 mmol/L LAB CHEMISTRY METHOD 11/20/2024 12:07 PM [facility] CO2 28 21 - 32 mmol/L LAB CHEMISTRY METHOD 11/20/2024 12:07 PM [facility] Anion Gap 8 3 - 11 LAB CHEMISTRY METHOD 11/20/2024 12:07 PM [facility] Glucose 88 70 - 100 mg/dL LAB CHEMISTRY METHOD 11/20/2024 12:07 PM [facility] BUN 27(H) 5 - 25 mg/dL LAB CHEMISTRY METHOD 11/20/2024 12:07 PM [facility] Creatinine 1.34(H) 0.70 - 1.30 mg/dL LAB CHEMISTRY METHOD 11/20/2024 12:07 PM [facility] eGFR 55(L) >=60 mL/min/1. 73m2 LAB CHEMISTRY METHOD 11/20/2024 12:07 PM [facility] Comment:Calculation based on the Chronic Kidney Disease Epidemiology Collaboration (CKD-EPI) equation refit without adjustment for race. BUN/Creatinine Ratio 20.1 LAB CHEMISTRY METHOD 11/20/2024 12:07 PM [facility] Calcium 8.4(L) 8.5 - 10.5 mg/dL LAB CHEMISTRY METHOD 11/20/2024 12:07 PM [facility] AST (SGOT) 20 10 - 42 unit/L LAB CHEMISTRY METHOD 11/20/2024 12:07 PM [facility] ALT (SGPT) 21 10 - 60 unit/L LAB CHEMISTRY METHOD 11/20/2024 12:07 PM [facility] Alkaline Phosphatase 120 42 - 121 unit/L LAB CHEMISTRY METHOD 11/20/2024 12:07 PM [facility] Total Protein 5.5(L) 6.0 - 8.0 g/dL LAB CHEMISTRY METHOD 11/20/2024 12:07 PM [facility] Albumin 2.9(L) 3.2 - 5.0 g/dL LAB CHEMISTRY METHOD 11/20/2024 12:07 PM [facility] Total Bilirubin 0.6 0.0 - 1.4 mg/dL LAB CHEMISTRY METHOD 11/20/2024 12:07 PM [facility] Blood Venous blood specimen / Unknown Venipuncture / Unknown 11/20/2024 5:49 AM EDT 11/20/2024 10:04 AM EDT us Debbie SALGUERO LAB BLOOD ORDERABLES Final Resul t [facility] [address] [place] [address], [place] [phone] * Lactate (11/17/2024 12:50 PM EDT) Lactate 1.4 0.4 - 2.0 mmol/L LAB CHEMISTRY METHOD 11/17/2024 2:34 PM EDT [facility] Blood Venous blood specimen / Unknown 11/17/2024 12:50 PM EDT 11/17/2024 1:28 PM EDT us Debbie SALGUERO LAB BLOOD ORDERABLES Final Resul t Performing Organization Address [facility]/ZIP Co de Phone Number [facility] [address] [place] [address], [place] [phone] * (ABNORMAL) Basic metabolic panel (11/17/2024 7:01 AM EDT) Pathologist [facility] Sodium 140 133 - 145 mmol/L LAB CHEMISTRY METHOD 11/17/2024 12:31 PM EDT [facility] Potassium 3.6 3.5 - 5.5 mmol/L LAB CHEMISTRY METHOD 11/17/2024 12:31 PM EDT [facility] Chloride 103 96 - 110 mmol/L LAB CHEMISTRY METHOD 11/17/2024 12:31 PM EDT [facility] CO2 28 21 - 32 mmol/L LAB CHEMISTRY METHOD 11/17/2024 12:31 PM EDT [facility] Anion Gap 9 3 - 11 LAB CHEMISTRY [facility]/17[facility]24 [facility] Glucose 134(H) 70 - 100 mg/dL LAB CHEMISTRY METHOD 11/17/2024 12:31 PM EDT [facility] BUN 32(H) 5 - 25 mg/dL LAB CHEMISTRY METHOD 11/17/2024 12:31 PM EDT [facility] Creatinine 1.25 0.70 - 1.30 mg/dL LAB CHEMISTRY METHOD 11/17/2024 12:31 PM EDT [facility] eGFR 59(L) >=60 mL/min/1. 73m2 LAB CHEMISTRY METHOD 11/17/2024 12:31 PM EDT [facility] Comment:Calculation based on the Chronic Kidney Disease Epidemiology Collaboration (CKD-EPI) equation refit without adjustment for race. BUN/Creatinine Ratio 25.6 LAB CHEMISTRY METHOD 11/17/2024 12:31 PM EDT [facility] Calcium 8.8 8.5 - 10.5 mg/dL LAB CHEMISTRY METHOD 11/17/2024 12:31 PM EDT [facility] Blood Venous blood specimen / Unknown Venipuncture / Unknown 11/17/2024 7:01 AM EDT 11/17/2024 10:50 AM EDT us Johnathon SALGUERO LAB BLOOD ORDERABLES Final R esult [facility] [address] [place] [address], * (ABNORMAL) Complete blood count (11/15/2024 6:44 AM EDT) WBC 10.8 4.8 - 10.8 K/mcL LAB HEMETOLOGY METHOD 11/15/2024 12:26 PM EDT [facility] RBC 4.30(L) 4.50 - 5.50 M/mcL LAB HEMETOLOGY METHOD 11/15/2024 12:26 PM EDT [facility] Hemoglobin 13.2(L) 13.5 - 17.5 g/dL LAB HEMETOLOGY METHOD 11/15/2024 12:26 PM EDT [facility] Hematocrit 41.9(L) 42.0 - 54.0 % LAB HEMETOLOGY METHOD 11/15/2024 12:26 PM EDT [facility] MCV 98.1(H) 79.0 - 98.0 FL LAB HEMETOLOGY METHOD 11/15/2024 12:26 PM EDT [facility] MCH 30.9 27.0 - 32.0 pcg LAB HEMETOLOGY METHOD 11/15/2024 12:26 PM EDT [facility] MCHC 31.5(L) 32.0 - 37.0 g/dL LAB HEMETOLOGY METHOD 11/15/2024 12:26 PM EDT [facility] RDW 14.8 11.0 - 15.0 % LAB HEMETOLOGY METHOD 11/15/2024 12:26 PM EDT [facility] Platelets 194 130 - 400 K/mcL LAB HEMETOLOGY METHOD 11/15/2024 12:26 PM EDT [facility] MPV 11.8(H) 7.0 - 11.0 FL LAB HEMETOLOGY METHOD 11/15/2024 12:26 PM EDT [facility] NRBC 0.0 <1.0 % LAB HEMETOLOGY METHOD 11/15/2024 12:26 PM EDT [facility] NRBC Absolute 0.00 <0.10 K/mcL LAB HEMETOLOGY METHOD 11/15/2024 12:26 PM EDT [facility] Blood Venous blood specimen / Unknown Venipuncture / Unknown 11/15/2024 6:44 AM EDT 11/15/2024 10:12 AM EDT us Caty SALGUERO LAB BLOOD ORDERABLES Final Re sult [facility] [address] [place] [address], [place] [phone] * (ABNORMAL) Hemoglobin A1c (11/11/2024 5:59 AM EDT) Hemoglobin A1C 6.6(H) <6.5 % LAB CHEMISTRY METHOD 11/12/2024 11:13 AM EDT [facility] Mean Bld Glu Estim. 143 mg/dL LAB CHEMISTRY METHOD 11/12/2024 11:13 AM EDT [facility] Blood Venous blood specimen / Unknown Venipuncture / Unknown 11/11/2024 5:59 AM EDT 11/11/2024 9:57 AM EDT us Debbie SALGUERO LAB BLOOD ORDERABLES Final Resul t [facility] ([facility] [address] [place] [address], from Last 3 Months Insurance MEDICARE MEDICAID - [place] Care Teams Finishing Range Feeder Relationship Specialty Start Date End Date Physician, No Pcp PCP - General 11/10/24
--- OUTSIDE RECORDS SUMMARY | 2025-01-02 10:41 | XMS_ITS | Encounter Summary ---
Author Organization [facility] Address [address] [place] [address] Care Team Providers Care Boring Machine Set Up Operator Jig Name Role Phone Physician, No Pcp Primary Care Provider Unavaila ble Encounter Details Date Type Department Care Team (Late st Contact Info) Description 11/15/2024 Lab Requisition [facility] - Main Lab [address] [facility] [place] [address] Caty Hawk PA [address] [place] [address] Encounter for other general examination Social History [...] mmol/L LAB CHEMISTRY METHOD 11/15/2024 1:42 PM [facility] LAB CO2 27 21 - 32 mmol/L LAB CHEMISTRY METHOD 11/15/2024 1:42 PM [facility] Anion Gap 9 3 - 11 LAB CHEMISTRY METHOD 11/15/2024 1:42 PM [facility] Glucose 82 70 - 100 mg/dL LAB CHEMISTRY METHOD 11/15/2024 1:42 PM [facility] BUN 42(H) 5 - 25 mg/dL LAB CHEMISTRY METHOD 11/15/2024 1:42 PM [facility] Creatinine 1.50(H) 0.70 - 1.30 mg/dL LAB CHEMISTRY METHOD 11/15/2024 1:42 PM [facility] LAB eGFR 48(L) >=60 mL/min/1. 73m2 LAB CHEMISTRY METHOD 11/15/2024 1:42 PM [facility] LAB Comment:Calculation based on the Chronic Kidney Disease Epidemiology Collaboration (CKD-EPI) equation refit without adjustment for race. BUN/Creatinine Ratio 28.0 LAB CHEMISTRY METHOD 11/15/2024 1:42 PM [facility] Calcium 8.8 8.5 - 10.5 mg/dL LAB CHEMISTRY METHOD 11/15/2024 1:42 PM [facility] AST (SGOT) 24 10 - 42 unit/L LAB CHEMISTRY METHOD 11/15/2024 1:42 PM [facility] LAB Comment:Results verified by repeat testing ALT (SGPT) 23 10 - 60 unit/L LAB CHEMISTRY METHOD 11/15/2024 1:42 PM [facility] Alkaline Phosphatase 152(H) 42 - 121 unit/L LAB CHEMISTRY METHOD 11/15/2024 1:42 PM [facility] Total Protein 6.0 6.0 - 8.0 g/dL LAB CHEMISTRY METHOD 11/15/2024 1:42 PM [facility] Albumin 3.3 3.2 - 5.0 g/dL LAB CHEMISTRY METHOD 11/15/2024 1:42 PM EDT [facility] Total Bilirubin 0.5 0.0 - 1.4 mg/dL LAB CHEMISTRY METHOD 11/15/2024 1:42 PM [facility] Blood Venous blood specimen / Unknown Venipuncture / Unknown 11/15/2024 6:44 AM EDT 11/15/2024 10:12 AM EDT us Caty SALGUERO LAB BLOOD ORDERABLES Final Re sult [facility] [address] [place] [address], [place] [phone] * (ABNORMAL) Complete blood count (11/15/2024 6:44 AM EDT) WBC 10.8 4.8 - 10.8 K/mcL LAB HEMETOLOGY METHOD 11/15/2024 12:26 PM [facility] RBC 4.30(L) 4.50 - 5.50 M/mcL LAB HEMETOLOGY METHOD 11/15/2024 12:26 PM [facility] Hemoglobin 13.2(L) 13.5 - 17.5 g/dL LAB HEMETOLOGY METHOD 11/15/2024 12:26 PM [facility] Hematocrit 41.9(L) 42.0 - 54.0 % LAB HEMETOLOGY METHOD 11/15/2024 12:26 PM [facility] MCV 98.1(H) 79.0 - 98.0 FL LAB HEMETOLOGY METHOD 11/15/2024 12:26 PM [facility] MCH 30.9 27.0 - 32.0 pcg LAB HEMETOLOGY METHOD 11/15/2024 12:26 PM [facility] LAB MCHC 31.5(L) 32.0 - [...] [facility] [address] [place] [address], documented in this encounter Visit Diagnoses Diagnosis Encounter for other general examination documented in this encounter Care Teams Boring Machine Set Up Operator Jig Relationship Specialty Start Date End Date Physician, No Pcp PCP - General 11/10/24 documented as of this encounter
--- OUTSIDE RECORDS SUMMARY | 2025-01-02 10:41 | XMS_ITS | Encounter Summary ---
Author Organization [facility] Address [address] [place] [address] Phone Care Team Providers Care Display Designer Outside Name Role Phone Mj Bonilla MD Primary Care Provider [phone] Encounter Details Date Type Department Care Team [...] on filedocumented in this encounter Care Teams Display Designer Outside Relationship Specialty Start Date End Date Mj Bonilla MD [address] [place] [address] PCP - General 05/06/20 documented as of this encounter
--- OUTSIDE RECORDS SUMMARY | 2025-01-02 10:41 | XMS_ITS | Clinical Summary ---
Author Organization [facility] Address [address] [place] [address] Phone Care Team Providers Care Entertainment Director Name Role Phone Mj Bonilla MD Primary Care Provider [phone] Allergies Active Allergy Reactions Criticality Noted Date [...] this topic Insurance Medicaid [place] Medicare Medicaid [place] Medicare Care Teams Entertainment Director Relationship Specialty Start Date End Date Mj Bonilla MD [address] [place] [address] PCP - General 05/06/20
--- OUTSIDE RECORDS SUMMARY | 2025-01-02 10:41 | XMS_ITS | Encounter Summary ---
Author Organization [facility] Address [address] [place] [address] Care Team Providers Care Insight Leader Name Role Phone Physician, No Pcp Primary Care Provider Unavaila ble Encounter Details Date Type Department Care Team (Late st Contact Info) Description 11/11/2024 Lab Requisition [facility] - Main Lab [address] [place] [address] Debbie Mccann PA [address] [place] [address] Encounter for other general examination Social History [...] LAB CHEMISTRY METHOD 11/12/2024 11:13 AM EDT [facility] Mean Bld Glu Estim. 143 mg/dL LAB CHEMISTRY METHOD 11/12/2024 11:13 AM EDT [facility] Blood Venous blood specimen / Unknown Venipuncture / Unknown 11/11/2024 5:59 AM EDT 11/11/2024 9:57 AM EDT us Debbie SALGUERO LAB BLOOD ORDERABLES Final Resul t [facility] ([facility] [address] [place] [address], documented in this encounter Visit Diagnoses Diagnosis Encounter for other general examination documented in this encounter Care Teams Insight Leader Relationship Specialty Start Date End Date Physician, No Pcp PCP - General 11/10/24 documented as of this encounter
--- OUTSIDE RECORDS SUMMARY | 2025-01-21 20:00 | XMS_ITS | Clinical Summary ---
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 Furniture Assembly Supervisor Name Role Phone NEEMA PA, BENJAMIN Unavailable Unavailable CHLOE RN, KARINA Unavailable Unavailsheyla RIVERS RN, CONCEPCION Unavailable Unavailable PAGLIUCA ([facility]) [facility] - OT, BERNA Unavailable Unavailable OLIMPIA PT, JS Unavailable Unavailable Payers Payer Name Policy Type Policy Number Effective Date Expira tion Date MEDICARE - [facility] - [place] [id number] SELDOM USED PAYER XXXX Problems Condition Name [...] OF NICOTINE DEPENDENCE Active 04-26 00:00: 00 GENERAL HELPER (CURRENT) USE OF ASPIRIN Active 04-26 00:00: 00 CARE HOME (CURRENT) USE OF ORAL HYPOGLYCEMIC DRUGS Active 04-26 00:00: 00 GENERAL HELPER (CURRENT) USE OF ANTITHROMBOT ICS/ANTIPLAT ELETS Active 04-26 00:00: 00 CARE HOME (CURRENT) USE OF INHALED STEROIDS Active 04-26 [...] 11-12 00:00: 00 11-28 00:00 :00 No [id number] Per instruc tions THREE TIMES DAILY Per instructio ns THREE TIMES DAILY (route: oral) Med Classific ation: Locomotor System carvedilol 3.125 mg tablet 11-10 00:00: 00 03-15 00:00 :00 No [id number] 1 tablet TWICE DAILY 1 tablet TWICE DAILY (route: oral) Med Classific ation: Cardiovas cular Therapy Agents Jardiance 10 mg tablet 7-18 00:00: 00 03-15 00:00 :00 No [id number] 1 tablet DAILY 1 tablet DAILY (route: oral) Med Classific ation: Endocrine OxyContin 20 mg tablet,david h resistant,e xtended release 11-05 00:00: 00 03-15 00:00 :00 No [id number] Unavailable Per instruc tions EVERY Per instructio ns EVERY (route: oral) Med Classific ation: Analgesic , Anti-infl ammatory or Antipyret ic OxyContin 30 mg tablet,david h resistant,e xtended release 11-05 00:00: 00 03-15 00:00 :00 No [id number] Unavailable Per instruc tions EVERY EVERY Per instructio ns EVERY EVERY (route: oral) Med Classific ation: Analgesic , Anti-infl ammatory or Antipyret ic Ventolin HFA 90 mcg/actuati on aerosol inhaler 7-06 00:00: 00 03-15 00:00 :00 No [id number] Per instruc tions INTO THE LUNGS EVERY 3 HOURS NEEDED Per instructio ns INTO THE LUNGS EVERY 3 HOURS NEEDED (route: inhalation ) Med Classific ation: Respirato ry Therapy Agents lorazepam 1 mg tablet 629 00:00: 00 03-15 00:00 :00 No [id number] 1 tablet THREE TIMES DAILY 1 tablet THREE TIMES DAILY (route: oral) Med Classific ation: Central Nervous System Agents carisoprodo l 350 mg tablet 6-22 00:00: 00 03-15 00:00 :00 No [id number] 1 tablet THREE TIMES DAILY 1 tablet THREE TIMES DAILY (route: oral) Med Classific ation: Locomotor System allopurinol 100 mg tablet 8-05 00:00: 00 03-15 00:00 :00 No [id number] 2 tablet DAILY 2 tablet DAILY (route: oral) Med Classific ation: Gout and Hyperuric emia Therapy aspirin 81 mg tablet,rene yed release 11-28 00:00: 00 03-15 00:00 :00 No [id number] 1 tablet DAILY 1 tablet DAILY (route: oral) Med Classific ation: Hematolog ical Agents atorvastati n 80 mg tablet 11-28 00:00: 00 03-15 00:00 :00 No [id number] 1 tablet BEDTIME 1 tablet BEDTIME (route: oral) Med Classific ation: Cardiovas cular Therapy Agents cefpodoxime 100 mg tablet 11-28 00:00: 00 12-01 23:59 :00 No [id number] 1 tablet 2 TIMES DAILY 1 tablet 2 TIMES DAILY (route: oral) Med Classific ation: Anti-Infe ctive Agents clopidogrel 75 mg tablet 11-28 00:00: 00 03-15 00:00 :00 No [id number] 1 tablet DAILY 1 tablet DAILY (route: oral) Med Classific ation: Hematolog ical Agents glipizide ER 2.5 mg tablet, extended release 24 hr 11-28 00:00: 00 03-15 00:00 :00 No [id number] 1 tablet 2 TIMES DAILY 1 tablet 2 TIMES DAILY (route: oral) Med Classific ation: Endocrine Mucinex 600 mg tablet, extended release 11-28 00:00: 00 12-07 23:59 :00 No [id number] 1 tablet 2 TIMES DAILY 1 tablet 2 TIMES DAILY (route: oral) Med Classific ation: Respirato ry Therapy Agents omeprazole 20 mg capsule,del ayed release 11-28 00:00: 00 03-15 00:00 :00 No [id number] 1 capsule DAILY 1 capsule DAILY (route: oral) Med Classific ation: Gastroint estinal Therapy Agents tamsulosin 0.4 mg capsule 11-28 00:00: 00 03-15 00:00 :00 No [id number] 1 capsule DAILY 1 capsule DAILY (route: oral) Med Classific ation: Genitouri nary Therapy torsemide 20 mg tablet 05 00:00: 00 03-15 00:00 :00 No [id number] 0.5 tablet DAILY 0.5 tablet DAILY (route: oral) Med Classific ation: Cardiovas cular Therapy Agents OXYGEN 11-28 00:00: 00 10-25 23:59 :00 No [id number] 2 Liter O2 - CONTINUOUS 2 Liter O2 - CONTINUOUS (route: Oxygen) Med Classific ation: Medical Oxygen allopurinol 100 mg tablet 2023-04 00:00: 00 10-25 23:59 :00 No [id number] 2 tablet DAILY 2 tablet DAILY (route: oral) Med Classific ation: Gout and Hyperuric emia Therapy aspirin 81 mg tablet,rene yed release 2023-04 00:00: 00 10-25 23:59 :00 No [id number] 1 tablet DAILY 1 tablet DAILY (route: oral) Med Classific ation: Hematolog ical Agents carisoprodo l 350 mg tablet 2023-04 00:00: 00 10-25 23:59 :00 No [id number] 2 tablet 3 TIMES DAILY 2 tablet 3 TIMES DAILY (route: oral) Med Classific ation: Locomotor System carvedilol 6.25 mg tablet 2023-04 00:00: 00 10-25 23:59 :00 No [id number] 1 tablet 2 TIMES DAILY 1 tablet 2 TIMES DAILY (route: oral) Med Classific ation: Cardiovas cular Therapy Agents clopidogrel 75 mg tablet 2023-04 00:00: 00 10-25 23:59 :00 No [id number] 1 tablet DAILY 1 tablet DAILY (route: oral) Med Classific ation: Hematolog ical Agents Farxiga 10 mg tablet 2023-04 00:00: 00 10-25 23:59 :00 No [id number] 1 tablet DAILY 1 tablet DAILY (route: oral) Med Classific ation: Endocrine Fish Oil 1,000 mg (120 mg-180 mg) capsule 2023-04 00:00: 00 10-25 23:59 :00 No [id number] 1 capsule DAILY 1 capsule DAILY (route: oral) Med Classific ation: Cardiovas cular Therapy Agents furosemide 20 mg tablet 2023-04 00:00: 00 10-25 23:59 :00 No [id number] 1 tablet DAILY 1 tablet DAILY (route: oral) Med Classific ation: Cardiovas cular Therapy Agents glipizide 2.5 mg tablet 2023-04 00:00: 00 10-25 23:59 :00 No [id number] 1 tablet 2 TIMES DAILY 1 tablet 2 TIMES DAILY (route: oral) Med Classific ation: Endocrine lorazepam 1 mg tablet 2023-04 00:00: 00 10-25 23:59 :00 No [id number] 1 tablet 3 TIMES DAILY 1 tablet 3 TIMES DAILY (route: oral) Med Classific ation: Central Nervous System Agents losartan 50 mg tablet 2023-04 00:00: 00 10-25 23:59 :00 No [id number] 1 tablet DAILY 1 tablet DAILY (route: oral) Med Classific ation: Cardiovas cular Therapy Agents omeprazole 20 mg capsule,del ayed release 2023-04 00:00: 00 10-25 23:59 :00 No [id number] 1 capsule DAILY 1 capsule DAILY (route: oral) Med Classific ation: Gastroint estinal Therapy Agents ondansetron HCl 4 mg tablet 2023-04 00:00: 00 10-25 23:59 :00 No [id number] 1 tablet EVERY 8 HOURS 1 tablet EVERY 8 HOURS (route: oral) Med Classific ation: Gastroint estinal Therapy Agents oxycodone 20 mg tablet 2023-04 00:00: 00 10-25 23:59 :00 No [id number] 1 tablet DIRECTED 1 tablet DIRECTED (route: oral) Med Classific ation: Analgesic , Anti-infl ammatory or Antipyret ic OxyContin 30 mg tablet,david h resistant,e xtended release 2023-04 00:00: 00 10-25 23:59 :00 No [id number] 1 tablet 2 TIMES DAILY 1 tablet 2 TIMES DAILY (route: oral) Med Classific ation: Analgesic , Anti-infl ammatory or Antipyret ic simvastatin 40 mg tablet 2023-04 00:00: 00 10-25 23:59 :00 No [id number] 1 tablet BEDTIME 1 tablet BEDTIME (route: oral) Med Classific ation: Cardiovas cular Therapy Agents Trelegy Ellipta 100 mcg-62.5 mcg-25 mcg powder for inhalation 2023-04 00:00: 00 10-25 23:59 :00 No [id number] 1 inhalat ion DAILY 1 inhalation DAILY (route: inhalation ) Med Classific ation: Respirato ry Therapy Agents allopurinol 100 mg tablet 2-03 00:00: 00 Yes [id number] 1 tablet DAILY 1 tablet DAILY (route: oral) Med Classific ation: Gout and Hyperuric emia Therapy aspirin 81 mg tablet,rene yed release - 00:00: 00 Yes [id number] 1 tablet DAILY 1 tablet DAILY (route: oral) Med Classific ation: Hematolog ical Agents carisoprodo l 350 mg tablet -30 00:00: 00 Yes [id number] 2 tablet 2 TIMES DAILY 2 tablet 2 TIMES DAILY (route: oral) Med Classific ation: Locomotor System carvedilol 6.25 mg tablet - 00:00: 00 Yes [id number] 1 tablet 2 TIMES DAILY 1 tablet 2 TIMES DAILY (route: oral) Med Classific ation: Cardiovas cular Therapy Agents Farxiga 10 mg tablet 1-06 00:00: 00 Yes [id number] 1 tablet DAILY 1 tablet DAILY (route: oral) Med Classific ation: Endocrine furosemide 20 mg tablet 1-06 00:00: 00 Yes [id number] 1 tablet DAILY 1 tablet DAILY (route: oral) Med Classific ation: Cardiovas cular Therapy Agents glipizide 2.5 mg tablet 1-06 00:00: 00 Yes [id number] 1 tablet 2 TIMES DAILY 1 tablet 2 TIMES DAILY (route: oral) Med Classific ation: Endocrine [place] 3-6-9 1,200 mg capsule 2-03 00:00: 00 Yes [id number] 1 capsule DAILY 1 capsule DAILY (route: oral) Med Classific ation: Cardiovas cular Therapy Agents OxyContin 30 mg tablet,david h resistant,e xtended release 7- 00:00: 00 Yes [id number] 1 tablet 2 TIMES DAILY 1 tablet 2 TIMES DAILY (route: oral) Med Classific ation: Analgesic , Anti-infl ammatory or Antipyret ic oxygen gas for inhalation 1-06 00:00: 00 Yes [id number] 2 Liter BEDTIME 2 Liter BEDTIME (route: inhalation ) Med Classific ation: Medical Supplies and Durable Medical Equipment (DME) Plavix 75 mg tablet - 00:00: 00 Yes [id number] 1 tablet DAILY 1 tablet DAILY (route: oral) Med Classific ation: Hematolog ical Agents Senna Lax 8.6 mg tablet 11-20 00:00: 00 Yes [id number] 2 tablet BEDTIME 2 tablet BEDTIME (route: oral) Med Classific ation: Gastroint estinal Therapy Agents Trelegy Ellipta 100 mcg-62.5 mcg-25 mcg powder for inhalation 2- 00:00: 00 Yes [id number] 1 inhalat ion DAILY 1 inhalation DAILY (route: inhalation ) Med Classific ation: Respirato ry Therapy Agents levofloxaci n 250 mg tablet 12-01 00:00: 00 12-06 23:59 :00 No [id number] 1 tablet DAILY 1 tablet DAILY (route: oral) Med Classific ation: Anti-Infe ctive Agents metronidazo le 500 mg tablet - 00:00: 00 12-06 23:59 :00 No [id number] 1 tablet 3 TIMES DAILY 1 tablet [...] MAINTAIN SITUATIONAL AWARENESS AND WILL NOTIFY CLINICAL SET UP MOLD TECHNICIAN AND PHYSICIAN/PROVIDER WITH ANY CHANGE IN CONDITION. [code = SKILLED NURSE TO PERFORM ENVIRONMENTAL SAFETY RISK ASSESSMENT AND FALL RISK ASSESSMENT AND PROVIDE INSTRUCTION TO IMPLEMENT ENVIRONMENTAL SAFETY AND FALL PREVENTION STRATEGIES THROUGHOUT THE CERTIFICATION PERIOD. SKILLED NURSE WILL MAINTAIN SITUATIONAL AWARENESS AND WILL NOTIFY CLINICAL SET UP MOLD TECHNICIAN AND PHYSICIAN/PROVIDER WITH ANY CHANGE IN CONDITION.] [...] CVA, RISK FACTORS, AND METHODS TO MANAGE GENERAL HELPER EFFECTS OF CVA. [code = SKILLED NURSE TO INSTRUCT PATIENT/CAREGIVER ON WARNING SIGNS OF CVA, RISK FACTORS, AND METHODS TO MANAGE CARE HOME EFFECTS OF CVA.] Future Scheduled Test SKILLED [...] LOWER EXTREMITY WEAKNESS EVIDENCED BY 30 SECOND [id number] SCORE LESS THAN 8 REPETITIONS, IMPAIRED DYNAMIC [...] LOWER EXTREMITY WEAKNESS EVIDENCED BY 30 SECOND [id number] SCORE LESS THAN 8 REPETITIONS, IMPAIRED DYNAMIC [...] OCTOBER DUE TO CVA. PATIENT HOSPITALIZED AT [facility] ON 11/06 DUE TO COPD EXACERBATION AND MARICHUY. PATIENT SENT TO [facility] FOR STR ON 11/09. PATIENT RETURNED TO THE HOSPITAL ON 11/17 DUE TO COLITIS SECONDARY TO CONSTIPATION. ANTIBIOTICS WERE D/C, CONSTIPATION RESOLVED. PATIENT RETURNED TO [facility] FROM 11/19 TO 11/20. PATIENT NOW [...] PATIENT REPORTS THAT HIS GRANDSON IS HIS PANTRY WORKER THROUGH [employer] AND PROVIDES APROX 28 HOURS [...] OCTOBER DUE TO CVA. PATIENT HOSPITALIZED AT [facility] ON 11/06 DUE TO COPD EXACERBATION AND MARICHUY. PATIENT SENT TO [facility] FOR STR ON 11/09. PATIENT RETURNED TO THE HOSPITAL ON 11/17 DUE TO COLITIS SECONDARY TO CONSTIPATION. ANTIBIOTICS WERE D/C, CONSTIPATION RESOLVED. PATIENT RETURNED TO [facility] FROM 11/19 TO 11/20. PATIENT NOW [...] PATIENT REPORTS THAT HIS GRANDSON IS HIS PANTRY WORKER THROUGH [employer] AND PROVIDES APROX 28 HOURS [...] BY THE END OF THE CERTIFICATION PERIOD. Encounters Start Date/Time End Date/Time Encounter Type Admission Type Attending [facility] Care Department Encounter ID Discharge Date Discharge Status Discharge Condition Discharge Reason Percent Goals Met 2024-11-24 00:00:00 2025-01-22 00:00:00 Outpatient CONCEPCION JACINTO [facility] [id number] 28.85
== END 2025-01-02 09:17 | disposition home or self-care (01) ==
LOC: HO.HMGCX 09:16
PROVIDERS: PCP Physician Assistant Medical; Visit Provider Physician Assistant Medical
DX: N18.30 Chronic kidney disease, stage 3 unspecified (principal); R60.0 Localized edema
CPT/HCPCS: 36415; 71046; 80048

== ENCOUNTER → 2025-01-02 09:33 | Outpatient (BNV) | payer MEDICARE, MEDICAID, SELFPAY | PROVIDERS: PCP Physician Assistant Medical; Visit Provider Radiology Diagnostic Radiology | DX: R10.811 Right upper quadrant abdominal tenderness (principal); R16.0 Hepatomegaly, not elsewhere classified; R60.0 Localized edema | CPT/HCPCS: 71046; 76705 ==

== ENCOUNTER 2025-01-02 11:29 | Emergency (ER) | payer MEDICARE, MEDICAID, SELFPAY ==
--- NOTE | ~2025-01-02 | US_ITS ---
EXAMINATION: US ABDOMEN LIMITED HISTORY: RUQ tenderness TECHNIQUE: Real-time grayscale ultrasound imaging of the right upper quadrant was performed and images were reviewed. COMPARISON: Correlation is made with the CT of the abdomen with contrast dated 12/01/2024 FINDINGS: Liver: The right lobe of the liver measures 21.4 cm in size. The left lobe of the liver measures 10.9 cm in size. The liver demonstrates normal homogeneous echotexture. There is a 2.0 x 1.8 x 1.7 cm hypoechoic mass in the right lobe. No intrahepatic biliary ductal dilatation is identified. There is normal hepatopedal flow in the portal vein. Gallbladder and biliary tree: The gallbladder is unremarkable, without evidence of calculi, wall thickening, or pericholecystic fluid. There is no sonographic Dc sign. The common bile duct is normal in caliber measuring 3 mm. Right Kidney: The right kidney measures 10.0 cm in length. There is renal cortical thinning. There is a 12 mm cyst at the upper pole and a 7 mm cyst in the interpolar region. There is no hydronephrosis or calculi. Pancreas: The pancreas is obscured by bowel gas. Abdominal aorta and inferior vena cava: The visualized portions of the abdominal aorta and inferior vena cava are normal in caliber. There is no free fluid in the right upper quadrant. US/US abdomen limited IMPRESSION: Hepatomegaly. 2.0 x 1.8 x 1.7 cm hypoechoic mass in the right lobe. MRI of the liver is recommended. Electronically signed by: Dread Byrne MD 01/02/2025 01:08 PM EDT
--- NOTE | ~2025-01-02 | CT_ITS ---
EXAMINATION: CT CHEST WITHOUT CONTRAST CLINICAL INFORMATION: Right lung mass, painful coughing COMPARISON: March 12, 2024 TECHNIQUE: Multidetector volumetric CT imaging of the chest was done. Axial MIP volume rendering provided. Sagittal and coronal reformatted images were obtained. This CT examination was performed using dose optimization techniques as appropriate, variously including the following: *Automated exposure control *Adjustment of mA and/or kV according to patient size (this includes techniques or standardized protocols for targeted exams where dose is matched to indication/reason for exam; i.e. extremities or head) *Use of iterative reconstruction technique DLP: 570 mGY*cm FINDINGS: LUNGS: Reference axial CT # Image 21: Right apical nodule is 10 x 25 mm, previously 10 mm. Image 31: Posterior right upper lobe nodule is 7 mm, previously 6 mm. Image 45 and 54: Posterior segment right upper lobe mass is 6.2 x 5.2 cm and was 20 mm. Abnormality now extends to the posterior segment bronchus/hilum. Image 101: Inferior lingular segment nodule is98 mm, previously 8 millimeters. No new nodules are seen. Moderate paraseptal and centrilobular emphysema is again noted. There is new peribronchial thickening along the posterior right upper lobe segment bronchi extending laterally. There is mild but increased right basilar dependent atelectasis. There is minimal streaky atelectasis in the posterior left base. MEDIASTINUM: Right lower paratracheal or precarinal lymph node is 9 mm, was 7 mm short axis. CORONARY ARTERY CALCIFICATION: Extensive calcification is present. PLEURA: There is no pleural effusion. AXILLA: No lymphadenopathy. UPPER ABDOMEN: Unremarkable. OSSEOUS STRUCTURES: There is a new mild superior endplate compression fracture of T12. There is vacuum phenomenon and T11-12 disc space suggesting the fracture is subacute or chronic. Otherwise, there are stable degenerative changes. No worrisome lytic or sclerotic lesions are identified. CT/CT chest wo IV con IMPRESSION: Enlarging mass in the posterior segment right upper lobe that contacts posterior pleura and major fissure that now extends to the hilum and there is new peribronchial thickening. There is an enlarging right lower paratracheal/precarinal node that was 7 mm and now measures 9 mm. While changes could all be related to enlargement of the mass, a superimposed pneumonia is possible. It could also be necrosis and/or hemorrhage within the mass. Enlarging irregular spiculated right apical nodule affecting pleura. Electronically signed by: Raffi Finley MD 01/02/2025 02:00 PM EDT RP
--- NOTE | 2025-01-02 11:34 | ECG_ITS ---
Test Reason : ABD PAIN Blood Pressure : */* mmHG Vent. Rate : 87 BPM Atrial Rate : 87 BPM P-R Int : 186 ms QRS Dur : 80 ms QT Int : 374 ms P-R-T Axes : 66 0 26 degrees QTcB Int : 450 ms Normal sinus rhythm Low voltage QRS Borderline ECG When compared with ECG of 01-Dec-2024 02:27, No significant change was found Referred By: Cher Schmitz Electronically Signed By: SHANNEN WATERS MD
--- NOTE | 2025-01-02 11:34 | ED_ITS ---
HPI - General Adult General Chief complaint: General Medical Stated complaint: abdominal pain Time Seen by Provider: 01/02/25 11:33 Source: patient, EMS, RN notes reviewed and old records reviewed Mode of arrival: EMS Limitations: no limitations History of Present Illness ED Provider: Ainsley WALLACE narrative: Patient is a 79-year-old male with history of cardiomyopathy, chronic renal failure stage 3, CHF, COPD with home O2 which patient uses only while sleeping, KAREN, carotid stenosis on the right, CVA, right lung mass presenting to the emergency department with complaint of right upper quadrant abdominal pain only when coughing for the past week. Denies any nausea, vomiting, diarrhea, constipation. Denies history of previous abdominal surgeries. Denies fevers. Daughter states that he saw PCP this morning and after having labs and cxr done, was advised to go to the ED. Daughter states he never had a follow up CT chest to evaluate lung mass because he doesn't want to know. She states he will allow the CT if she is the only one aware of the results. MD complaint: Abdominal pain Onset (ago): week(s) Related Data Home Medications ?Medication ?Instructions ?Recorded ?Confirmed allopurinol 100 mg tablet 200 mg PO DAILY 11/09/20 furosemide 20 mg tablet 20 mg PO DAILY 08/19/2211/25 omega 8-wrm-xcd-fish oil 1,000 mg 1 cap PO DAILY 12/0912/14/24 (120 mg-180 mg) capsule (Fish Oil) clopidogrel 75 mg tablet 75 mg PO DAILY 03/26/2311/25 fluticasone fur. 100 mcg-umeclid 1 ea inhalation DAILY 10/24/24 12/14/24 62.5 mcg-vilant 25 mcg inhalat.powder (Trelegy Ellipta) glipizide 2.5 mg tablet, extended mg PO 12/07/2412/14 release 24 hr losartan 50 mg tablet 50 mg PO DAILY 12/07/2411/25 simvastatin 40 mg tablet 40 mg PO DAILY 12/07/2411/25 Previous Rx's ?Medication ?Instructions ?Recorded aspirin 81 mg tablet,delayed 81 mg PO DAILY #30 tabs 0 11/11/22 release ipratropium 0.5 mg-albuterol 3 mg 3 ml inhalation Q6H PRN wheezing 05/10/24 (2.5 mg base)/3 mL nebulization #180 mL soln carvedilol 6.25 mg tablet 6.25 mg PO BID #180 tabs dapagliflozin propanediol 10 mg 10 mg PO DAILY 90 days #90 tabs 10/09/24 tablet (Farxiga) prednisone 20 mg tablet 40 mg (2 x 20 mg) PO DAILY # 10 tabs 11/09/24 levofloxacin 250 mg tablet 250 mg PO DAILY 5 days #5 t abs 12/01/24 metronidazole 500 mg tablet 500 mg PO TID 5 days #15 t abs 12/01/24 carisoprodol 350 mg tablet 350 mg PO BID #60 tabs 11/25 01/18 oxycodone 30 mg tablet,crush 30 mg PO BID #60 tabs resistant,extended release 12 hr (OxyContin) Allergies Allergy/AdvReac Type Severity Reaction Status Date / Time adhesive Allergy Severe Rash Verified 01/02/25 11:52 morphine (MORPHINE) Allergy Severe NAUSEA Verified 01/02/25 11:52 codeine (CODEINE) Allergy Intermediate RASH Verified 01/02/25 11:52 ibuprofen (From MOTRIN) Allergy Unknown told to Verified 01/02/25 11:52 avoid due to kidneys Review of Systems 2 Review of Systems: As per HPI Yes all other systems are reviewed and are negative Constitutional: Constitutional: Reports as per HPI [facility] Past Medical History Medical History (Updated 01/02/25 @ 15:50 by Cher Schmitz NP) Mass of right lung Pedal edema Panic attack Fracture of lumbar spine Prostatitis Hospital discharge follow-up Acute CVA (cerebrovascular accident) Diabetes mellitus Type 2 MT (myocardial infarction) Carotid stenosis, right TIA (transient ischemic attack) Chronic renal failure (CRF), stage 3 (moderate) LBBB (left bundle branch block) Cardiomyopathy CHF (congestive heart failure) Chronic back pain Sleep apnea Oxygen dependent Lung nodule CVA (cerebral vascular accident) Surgical History History of lithotripsy History of vasectomy History of back surgery Family History Family History Father Cirrhosis Mother Myocardial infarction Enlarged heart Sister No problems noted. Sister No problems noted. Social History Social History Household Members: Family Housing: House Do you presently have visiting nurse or other home services: No Alcohol intake: former Patient Tobacco Use Status: Former Tobacco user Tobacco use type: Cigarette Years Smoked: ~20 Quit 36 years ago Smoked in Last 30 Days: No Use of substances other than those prescribed or required for medical reasons: No Advance Directives: Yes Advance Directives on File: Yes Advance Directives Date on File: 03/27/23 service: No Current occupational status: retired Cognitive needs: Yes (walker/cane) Hearing needs: Yes (hearing loss does not wear hearing aids) Vision needs: Yes (reading glasses) Physical Exam ED Vital Signs: Vital Signs - 24 hr 01/02/25 11:39 01/02/25 14:39 Temperature 97.7 F Pulse Rate 88 86 Respiratory Rate 18 16 Blood Pressure 97/4 L 103/46 L Pulse Oximetry 88 L 95 Oxygen Delivery Method Room Air Nasal Cannula Oxygen Flow Rate 2 BMI result Body Mass Index 31.7 Vital signs have been reviewed and appear to be correct. Blood pressure slightly low. Heart rate normal. Respiratory rate normal. Temperature normal. Oxygen saturation hypoxic on room air. Const General: cooperative and no acute distress Nutritional Appearance: obese Orientation/consciousness: oriented to person, oriented to place, oriented to time and patient oriented x3 Limitations: no limitations HENMT Head: Yes normocephalic and Yes atraumatic Ears: external ears normal General nose exam: Normal external nose present Face and sinus: Yes face symmetric Mouth: oropharynx normal and moist mucous membranes Throat: Yes uvula midline Eyes Pupils: Equal, round and reactive pupils present Neck Neck: Yes normal visual inspection and Yes supple Resp Effort & Inspection: normal respiratory effort and able to speak in complete sentences Auscultation: clear to auscultation bilaterally Cardio Rate: regular rate Rhythm: regular rhythm Heart sounds: S1 normal heart sound present and S2 normal heart sound present GI Palpation (GI): Soft to palpation and Tenderness to palpation present (GI) in the RUQ Auscultation: normoactive bowel sounds General: Yes no CVA tenderness Back/Spine/Pelvis Back: no CVA tenderness Skin General skin exam: elasticity normal and turgor normal Neuro General: oriented to person, oriented to place, oriented to time, patient oriented x3, moves all extremities, no focal motor deficits and CN's II-XI intact bilaterally Cranial nerves: Yes Equal, round and reactive pupils present Cognition (Neuro): normal cognition Extrem General: Yes full ROM, Yes no calf tenderness and Yes pedal edema (3+ pitting edema bilat) Psych Mental Status: mental status grossly normal Affect: normal affect Thought process: Normal thought process present Medications Administered Discontinued Medications Generic Name Dose Route Start Last Admin Trade Name Debbie PRN Reason Stop Dose Admin Oxycodone HCl 30 mg 01/02/25 14:54 01/02/25 15:17 Oxycodone Hcl Er 10 Mg Tab.Er.12h PO 01/02/25 14:55 30 mg ONCE ONE Administration Medical Decision Making Medical Decision Making [facility] Narrative: Patient is a 79-year-old male with history of cardiomyopathy, chronic renal failure stage 3, CHF, COPD with home O2 which patient uses only while sleeping, KAREN, carotid stenosis on the right, CVA, right lung mass presenting to the emergency department with complaint of right upper quadrant abdominal pain only when coughing for the past week. On exam patient is awake, A+Ox3, VS WNL, afebrile, normal neurological exam without focal deficits, physical exam findings as above. Given reported symptoms and physical exam findings, initial differential includes but is not limited to cholecystitis, choledocolithiasis, CHF exacerbation, malignancy/increasing mass. Labs notable for mild MARICHUY, BNP normal. RUQ U/S notable for no evidence of cholecystitis or obstructing calculi. CT chest notable for enlarging mass to right upper lobe. My interpretation is in agreement with the radiologist's interpretation. Results discussed with patient's daughter, Alina, only at their request. With Alina not present at bedside, patient reiterates that he does not wish to know the results of his imaging today. He also declined hospital admission, stating that he just wants to go home. She also states he does not want admission for MARICHUY, does not want to know anything about the results of the chest CT. I did discuss the option of involving palliative care given that patient is not interested in further assessment or treatment of this mass which could possibly be/likely is malignant. Mindy, corrections caseworker also involved, and patient requesting to change his healthcare proxy to Alina, and also wishes to have a MOLST form completed. HCP form completed by Mindy and MOLST completed by myself. Mindy also placing referral to [facility] for palliative care. Patient advised that he can return to the emergency department at any time should he change his mind and can still receive treatment should he change his mind. Patient verbalized understanding of and agreement with this. Differential Diagnosis Differential Diagnoses: The differential diagnosis associated with the presentation includes As per [facility] Admission/Observation Consideration of admission/observation: Escalation of care including admission/observation considered Admission offered, patient declined Lab Data [facility] Lab Attestation statement: I reviewed the patient's lab results. as per [facility] 01/02/25 11:55 01/02/25 11:55 Labs: Lab Results 01/02/25 01/02/25 Range/Units 11:55 14:18 WBC 7.6 (4.8-10.8) X10*3/uL RBC 4.34 L (4.60-5.80) X10*6/uL Hgb 13.2 L (14.0-18.0) g/dl Hct 40.0 L (42.0-52.0) % MCV 92.2 (80.0-98.0) fL MCH 30.4 (27.0-33.0) pg MCHC 33.0 (31.0-36.0) g/dl RDW 13.2 (11.0-16.0) % Plt Count 233 (160-400) X10*3/uL MPV 10.4 (9.4-12.4) fL Immature Gran % (Auto) 1.1 H (0.0-0.4) % Neut % (Auto) 63.4 (45-73) % Lymph % (Auto) 14.5 L (20-40) % [place] % (Auto) 11.2 H (2-11) % Eos % (Auto) 9.1 H (0-4) % Baso % (Auto) 0.7 (0-2) % Lymph # (Auto) 1.1 L (1.2-4.9) X10*3/uL [place] # (Auto) 0.9 (0.1-1.2) X10*3/uL Eos # (Auto) 0.7 H (0.0-0.4) X10*3/uL Baso # (Auto) 0.1 (0.0-0.2) X10*3/uL Abs Immat Gran (auto) 0.08 H (0.00-0.03) X10*3/uL Absolute Neuts (auto) 4.8 (2.0-8.3) x10*3/uL Absolute Nucleated RBC 0.000 (0.0-0.012) X10*3/uL Nucleated RBC % (auto) 0.0 (0.0-0.2) /100WBC PT 11.9 (10.9-12.4) SEC INR 1.0 (0.9-1.1) Sodium 140 (135-145) mmol/L Potassium 3.8 (3.3-5.1) mmol/L Chloride 101 (96-108) mmol/L Carbon Dioxide 27 (22-29) mmol/L Anion Gap 16 (12-20) BUN 41 H (9-16) mg/dL Creatinine 1.66 H (0.5-1.4) mg/dL Estim Creat Clear Calc 46.8 Estimated GFR 40 Random Glucose 174 H (60-115) mg/dL Calcium 9.1 (8.4-10.2) mg/dL Magnesium 1.8 (1.6-2.6) mg/dL Total Bilirubin 0.4 (0.0-1.0) mg/dL AST 22 (5-37) U/L ALT 11 (0-40) U/L Alkaline Phosphatase 197 H (39-117) U/L Troponin I High Sens 15.0 (<3.5-35.0) ng/L B-Natriuretic Peptide 47 (<100) pg/mL Total Protein 6.9 (6.5-8.0) g/dL Albumin 3.8 (3.5-5.0) g/dL Lipase 33 (8-78) U/L Urine Color Yellow Urine Appearance Clear Urine pH 5.5 (5.0-9.0) Ur Specific [address] 1.010 (1.005-1.025) Urine Protein Negative (Neg-Trace) mg/dL Urine Glucose (UA) 500 H (Negative) mg/dL Urine Ketones Negative (Negative) mg/dL Urine Blood Negative (Negative) Urine Nitrite Negative (Negative) Ur Leukocyte Esterase Negative (Negative) Independent Interpretation I performed an independent interpretation of an: EKG (normal sinus rhythm, rate 87bpm, normal MN interval, Q-wave present in V1), Plain X-Ray, Ultrasound and CT Scan Interpretation: RUQ U/S notable for no evidence of cholecystitis or obstructing calculi. CT chest notable for enlarging mass to right upper lobe. Radiology Impression Discussion of test interpretation with radiology: I have reviewed the radiologist's reading. Radiologist Impression: US/US abdomen limited IMPRESSION: Hepatomegaly. 2.0 x 1.8 x 1.7 cm hypoechoic mass in the right lobe. MRI of the liver is recommended. CT/CT chest wo IV con IMPRESSION: Enlarging mass in the posterior segment right upper lobe that contacts posterior pleura and major fissure that now extends to the hilum and there is new peribronchial thickening. There is an enlarging right lower paratracheal/precarinal node that was 7 mm and now measures 9 mm. While changes could all be related to enlargement of the mass, a superimposed pneumonia is possible. It could also be necrosis and/or hemorrhage within the mass. Enlarging irregular spiculated right apical nodule affecting pleura. External Record Review External record reviewed: Inpatient record, Office record and Outpatient record Critical Care Time Critical Care Time Critical Care Time: Yes Total Critical Care Time: 45 Attestation: I have personally provided critical care time exclusive of time spent on separately billable procedures. Time includes review of lab data, radiology results, discussion with consultants, and monitoring for potential decompensation. Intervention performed as documented. Discharge Plan Discharge Clinical Impression: Mass of right lung, MARICHUY (acute kidney injury) Patient Disposition: Home, Self-Care Instructions: Acute Kidney Injury (DC) Additional Instructions: Please follow up with your primary care provider this week. You had a CT scan of your chest today but did not wish to know the results. Your healthcare proxy was updated today and a MOLST form was completed outlining your end-of-life care preferences. You are being referred to palliative care. You can return to the emergency department at any time for new or concerning symptoms. Prescriptions: No Action ipratropium-albuterol 0.5 mg-3 mg(2.5 mg base)/3 mL solution for nebulization 3 ml inhalation Q6H PRN (Reason: wheezing) Qty: 180 4RF carvedilol 6.25 mg tablet 6.25 mg PO BID Qty: 180 3RF Farxiga 10 mg tablet 10 mg PO DAILY 90 Days Qty: 90 3RF carisoprodol 350 mg tablet 350 mg PO BID Qty: 60 0RF oxycodone [OxyContin] 30 mg tablet,oral only,ext.rel.12 hr 30 mg PO BID Qty: 60 0RF allopurinol 100 mg tablet 200 mg PO DAILY omega 7-ldc-xoz-fish oil [Fish Oil] 1,000 mg (120 mg-180 mg) Capsule 1 cap PO DAILY clopidogrel 75 mg tablet 75 mg PO DAILY Trelegy Ellipta 100-62.5-25 mcg blister with device 1 ea INHALATION DAILY aspirin 81 mg Tablet,Delayed Release (Dr/Ec) 81 mg PO DAILY Qty: 30 0RF prednisone 20 mg tablet 40 mg PO DAILY Qty: 10 0RF levofloxacin 250 mg tablet 250 mg PO DAILY 5 Days Qty: 5 0RF metronidazole 500 mg tablet 500 mg PO TID 5 Days Qty: 15 0RF furosemide 20 mg tablet 20 mg PO DAILY losartan 50 mg tablet 50 mg PO DAILY simvastatin 40 mg tablet 40 mg PO DAILY glipizide 2.5 mg tablet extended release 24hr PO Print Language: Australian
[2025-01-02 11:37] VITALS: BP 112/58; PULSE 91; O2SAT 93
[2025-01-02 11:39] VITALS: BP 97/4; PULSE 88; RESP 18; TEMP 36.5; O2SAT 88; BMI 31.7
--- NOTE | 2025-01-02 11:52 | PC.NURSE ---
Pt being seen by provider. 2LPM N/C applied as pt has sat 88% RA. Pt normally wears O2 only at night- provider aware. Provider aware of low BP also. Pt only complaint increased edema right leg, and pain right upper quad when he coughs.
[2025-01-02 11:59] LABS: MANUAL DIFF FLAG NO
[2025-01-02 12:00] LABS: Hematocrit 40.0 % (42.0-52.0); Hemoglobin 13.2 g/dl (14.0-18.0); Imm Gran Abs Auto 0.08 X10*3/uL (0.00-0.03); Imm Gran Pct Auto 1.1 % (0.0-0.4); Lymphocytes Absolute Auto 1.1 X10*3/uL (1.2-4.9); Mean Corpuscular HGB Conc 33.0 g/dl (31.0-36.0); Mean Corpuscular Hemoglobin 30.4 pg (27.0-33.0); Mean Corpuscular Volume 92.2 fL (80.0-98.0); NRBC Abs Auto 0.000 X10*3/uL (0.0-0.012); NRBC Pct Auto 0.0 /100WBC (0.0-0.2); Platelet Count 233 X10*3/uL (160-400); Red Blood Count 4.34 X10*6/uL (4.60-5.80); White Blood Count 7.6 X10*3/uL (4.8-10.8)
[2025-01-02 12:07] LABS: INTERNATIONAL NORM RATIO 1.0 (0.9-1.1); Prothrombin Time 11.9 SEC (10.9-12.4)
[2025-01-02 12:17] LABS: Alanine Aminotransferase 11 U/L (0-40); Albumin Level 3.8 g/dL (3.5-5.0); Alkaline Phosphatase 197 U/L (39-117); Anion Gap 16 (12-20); Aspartate Amino Transferase 22 U/L (5-37); Blood Urea Nitrogen 41 mg/dL (9-16); Calcium 9.1 mg/dL (8.4-10.2); Carbon Dioxide 27 mmol/L (22-29); Chloride 101 mmol/L (96-108); Creatinine Clr Calc Pharmacy 46.8; Estimated Glomerular Filt Rate 40; Lipase 33 U/L (8-78); Magnesium 1.8 mg/dL (1.6-2.6); Potassium 3.8 mmol/L (3.3-5.1); Sodium 140 mmol/L (135-145); Total Protein 6.9 g/dL (6.5-8.0)
[2025-01-02 12:23] LABS: B Type Natriuretic Peptide 47 pg/mL (<100)
[2025-01-02 12:24] LABS: Troponin-I High Sensitivity 15.0 ng/L (<3.5-35.0)
[2025-01-02 14:39] VITALS: BP 103/46; PULSE 86; RESP 16; O2SAT 95
[2025-01-02 14:41] LABS: Appearance Urine Clear; Glucose Urine UA 500 mg/dL (Negative); PH 5.5 (5.0-9.0); Specific Gravity - Urine 1.010 (1.005-1.025)
--- NOTE | 2025-01-02 14:46 | PC.NURSE ---
Pt i snow C/O [ain right arm and back- family and pt state this is chronic. provider made aware. awaiting orders.
[2025-01-02] MEDS: oxyCODONE HCl ER 10 MG TAB.ER.12H 30 MG PO (15:17)
--- NOTE | 2025-01-02 15:24 | PC.NURSE ---
Assumed care of this patient at 1500, patient endorsing 10/10 R shoulder pain, CM to be involved regarding VNA/palliative services.
[2025-01-02 16:05] VITALS: BP 103/46; PULSE 86; RESP 16; TEMP 36.7; O2SAT 95
--- NOTE | 2025-01-02 17:07 | MHC.CM.ED ---
Addendum entered by Madeleine Wilson 01/02/25 17:17: Pt is a patient in oncology withDr. Barros. Per his daughter, patient has refused all treatments. Original Note: CM met with patient and daughter, Alina, with Cher SALGUERO. Pt does not wish to know the results of his testing today. Pt does know he has a lung mass. Pt states he does not want any treatment. Pt is interested in comfort and patient and daughter are requesting informational meeting with [facility] palliative care. Referral will be made. CM spoke privately with daughter regarding hospice vs palliative, explaining that palliative care is usually treatment and comfort. Explained that hospice might be more of what they are looking for. Daughter Alina will be the contact. SHe is the HCP, as patient made new HCP today. Pt also completed a MOLST with provider. Pt is alert and orientated. Pt has home Oxygen. Daughter Alina will be caring for him as needed. Patient is requesting discharge to home. Copies given of HCP and MOLST. CM contact card given to daughter.
== END 2025-01-02 16:06 | disposition home or self-care (01) ==
PROVIDERS: Registered Nurse Emergency; Emergency Provider Emergency Medicine
DX: R91.8 Other nonspecific abnormal finding of lung field (principal); R05.9 Cough, unspecified; R10.2 Pelvic and perineal pain; R94.31 Abnormal electrocardiogram [ECG] [EKG]; R07.81 Pleurodynia; R06.02 Shortness of breath; Z79.899 Other long term (current) drug therapy
CPT/HCPCS: 36415; 71250; 76705; 80053; 81003; 83690; 83735; 83880; 84484; 85025; 85610; 93005; 99284

== ENCOUNTER → 2025-01-02 11:34 | Outpatient (BNV) | payer MEDICARE, MEDICAID, SELFPAY | PROVIDERS: Emergency Provider Emergency Medicine; Visit Provider Internal Medicine Cardiovascular Disease | DX: R10.11 Right upper quadrant pain (principal) | CPT/HCPCS: 93010 ==